=== PATIENT | female | born 1975 | race Two or more races ===

== ENCOUNTER 2023-10-14 13:23 | Inpatient (IN) | payer OTHER, MEDICAID ==
[~2023-10-14] VITALS: Ht 149.9 cm; Wt 79.3 kg
[2023-10-14 14:30] LABS: Basophils # (auto) 0.1 10 ^3/uL (0-0.2); Basophils % (auto) 1.5 % (0.0-2.0); Eosinophils # (auto) 0.2 10 ^3/uL (0-0.8); Eosinophils % (auto) 2.9 % (0.0-7.0); Hematocrit 39.4 % (36.0-46.0); Hemoglobin 13.2 g/dL (12.2-16.2); Lymphocytes # (auto) 3.5 10 ^3/uL (0.4-5.4); Lymphocytes % (auto) 41.7 % (10.0-50.0); Mean Corpuscular Hemoglobin 31.4 pg (28.0-32.0); Mean Corpuscular Hgb Conc. 33.5 g/dL (32.0-36.0); Mean Corpuscular Volume 93.7 fL (80.0-100.0); Monocytes # (auto) 0.4 10 ^3/uL (0-1.3); Monocytes % (auto) 4.6 % (0.0-12.0); Neutrophils # (auto) 4.1 10 ^3/uL (1.6-8.6); Neutrophils % (auto) 49.3 % (37.0-80.0); Red Blood Cells 4.21 10^6/uL (4.0-5.20); Red Cell Distribution Width 13.8 % (11.8-14.3); White Blood Cell 8.4 10^3/uL (4.4-10.8)
[2023-10-14 14:51] LABS: Alanine Aminotransferase 13 U/L (7-40); Alkaline Phosphatase 66 U/L (46-116); Calcium 9.4 mg/dL (8.7-10.4); Chloride 112 mmol/L (98-107)
[2023-10-14 14:52] LABS: Albumin 3.8 g/dL (3.2-4.8); Anion Gap 2 (5-15); Aspartate Aminotransferase 8 U/L (13-40); BUN/Creatinine Ratio 19.3 (10.0-20.0); Bilirubin, Total 0.3 mg/dL (0.2-1.0); Blood Urea Nitrogen 11 mg/dL (9-23); Carbon Dioxide 28 mmol/L (20-30); Glucose 123 mg/dL (74-106); Lipase 51 U/L (12-53); Potassium 3.6 mmol/L (3.5-5.1); Sodium 142 mmol/L (136-145); Total Protein 6.4 g/dL (5.7-8.2)
[2023-10-14 15:12] LABS: Urine Bacteria FEW /hpf (None Seen); Urine Blood Negative /uL (Negative); Urine Clarity HAZY (Clear); Urine Color Yellow (Yellow); Urine Mucus FEW (None Seen); Urine Protein, UAD Negative (Negative); Urine Urobilinogen Normal (Negative); Urine WBC 2 /hpf (0 - 5)
[2023-10-14] MEDS ORDERED: PANT40TA2 PO (17:16)
[2023-10-14 19:29] VITALS: PULSE 83; RESP 18; O2SAT 99
[2023-10-14] MEDS: HYDROcodone-ACET 10/325MG TAB PO ONE (19:43)
[2023-10-14] MEDS ORDERED: MORPHINE SULFATE INJ 2 MG/ml SYRG IV PRN (20:30)
[2023-10-14] MEDS ORDERED: DOCUSATE SOD 100 MG CAP PO PRN (20:30)
[2023-10-14] MEDS ORDERED: NITROGLYCERIN 0.4 MG SL TAB SL PRN (20:30)
[2023-10-14] MEDS ORDERED: OMEP-434 PO (20:38)
[2023-10-14] MEDS ORDERED: GABA-339 PO (20:38)
[2023-10-14] MEDS ORDERED: LISI40TA16 PO (20:38)
[2023-10-14] MEDS ORDERED: TIZA-142 PO (20:38)
[2023-10-14] MEDS ORDERED: SENN-62 PO (20:38)
[2023-10-14] MEDS ORDERED: ALPR1TAB2 PO (20:38)
[2023-10-14] MEDS: ONDANSETRON HCL 4 MG/2 ML VIAL IV PRN (21:21)
[2023-10-14] MEDS: MORPHINE SULFATE INJ 2 MG/ml SYRG IV PRN (21:21)
[2023-10-14] MEDS: SODIUM CHLORIDE 0.9% 1,000 ML IV SCH (22:00)
[2023-10-14] MEDS: HYDROcodone-ACET 5/325MG TAB PO PRN (22:43)
[2023-10-14] MEDS ORDERED: OXY10CRT PO (23:30)
[2023-10-14 23:52] VITALS: BP 137/79; PULSE 61; RESP 18; TEMP 98.4; O2SAT 98
[2023-10-15] VITALS (7 sets, daily range): BP systolic 104–153; BP diastolic 57–97; PULSE 50–64; RESP 16–18; TEMP 97.3–98.3; O2SAT 96–100
[2023-10-15] MEDS: ACETAMINOPHEN 325 MG TAB PO PRN (00:24)
[2023-10-15] MEDS: ALPRAZolam 0.5 MG TAB PO PRN (00:24)
[2023-10-15] MEDS ORDERED: [UNRECOGNIZED DRUG - OTHER] PO SCH (06:00)
[2023-10-15] MEDS ORDERED: TIZANIDINE HYDROCHLORIDE 4 MG PO SCH (06:00)
[2023-10-15 06:18] LABS: Basophils # (auto) 0.1 10 ^3/uL (0-0.2); Eosinophils # (auto) 0.3 10 ^3/uL (0-0.8); Eosinophils % (auto) 3.8 % (0.0-7.0); Hematocrit 40.1 % (36.0-46.0); Hemoglobin 13.2 g/dL (12.2-16.2); Lymphocytes # (auto) 4.1 10 ^3/uL (0.4-5.4); Lymphocytes % (auto) 49.6 % (10.0-50.0); Mean Corpuscular Hemoglobin 31.3 pg (28.0-32.0); Mean Corpuscular Hgb Conc. 32.8 g/dL (32.0-36.0); Mean Corpuscular Volume 95.5 fL (80.0-100.0); Monocytes # (auto) 0.6 10 ^3/uL (0-1.3); Monocytes % (auto) 6.7 % (0.0-12.0); Neutrophils # (auto) 3.2 10 ^3/uL (1.6-8.6); Neutrophils % (auto) 38.9 % (37.0-80.0); Nucleated Red Blood Cells % 0.2 %; Red Cell Distribution Width 13.8 % (11.8-14.3); White Blood Cell 8.3 10^3/uL (4.4-10.8)
[2023-10-15 06:41] LABS: Alanine Aminotransferase 12 U/L (7-40); Albumin 3.7 g/dL (3.2-4.8); Alkaline Phosphatase 62 U/L (46-116); Anion Gap 2 (5-15); Blood Urea Nitrogen 9 mg/dL (9-23); Calcium 8.5 mg/dL (8.5-10.1); Carbon Dioxide 25 mmol/L (20-30); Chloride 115 mmol/L (98-107); Glucose 83 mg/dL (74-106); Potassium 3.9 mmol/L (3.5-5.1); Sodium 142 mmol/L (136-145)
[2023-10-15 06:42] LABS: Aspartate Aminotransferase < 8 U/L (13-40); Bilirubin, Total 0.3 mg/dL (0.2-1.0)
[2023-10-15] MEDS: GABAPENTIN 300 MG CAP PO SCH (07:04)
[2023-10-15] MEDS: LISINOPRIL 20 MG TAB PO SCH (09:57)
[2023-10-15] MEDS: PANTOPRAZOLE 40 MG/10 ML VIAL INJ IV SCH (09:58)
[2023-10-15] MEDS ORDERED: DOCUSATE SODIUM PO SCH (10:00)
[2023-10-15] MEDS ORDERED: [UNRECOGNIZED DRUG - OTHER] PO SCH (10:00)
[2023-10-15] MEDS: D5W/SOD CHL 0.45% 1,000 ML IV SCH (14:04)
[2023-10-15] MEDS: HYDROmorphone HCL 2 MG/ML VL/or syr IV PRN (14:14)
[2023-10-15] MEDS: LORazepam 2MG/ML-1ML VIAL IV PRN (16:19)
[2023-10-15] MEDS: GASTROGRAFIN 120 ML SOL ONE (16:57)
[2023-10-15] MEDS: EZ-GAS II GRANULES (RADIOLOGY USE) PO ONE (17:28)
[2023-10-15] MEDS: ATORVASTATIN 20 MG TAB PO SCH (21:24)
[2023-10-16] VITALS (8 sets, daily range): BP systolic 101–152; BP diastolic 48–78; PULSE 52–82; RESP 14–20; TEMP 97.4–98.6; O2SAT 95–98
[2023-10-16 06:22] LABS: Basophils # (auto) 0.1 10 ^3/uL (0-0.2); Basophils % (auto) 1.1 % (0.0-2.0); Eosinophils # (auto) 0.3 10 ^3/uL (0-0.8); Eosinophils % (auto) 3.9 % (0.0-7.0); Hematocrit 37.8 % (36.0-46.0); Hemoglobin 12.6 g/dL (12.2-16.2); Lymphocytes # (auto) 3.3 10 ^3/uL (0.4-5.4); Lymphocytes % (auto) 43.9 % (10.0-50.0); Mean Corpuscular Hemoglobin 31.5 pg (28.0-32.0); Mean Corpuscular Hgb Conc. 33.2 g/dL (32.0-36.0); Mean Corpuscular Volume 94.8 fL (80.0-100.0); Monocytes # (auto) 0.5 10 ^3/uL (0-1.3); Neutrophils # (auto) 3.3 10 ^3/uL (1.6-8.6); Neutrophils % (auto) 44.1 % (37.0-80.0); Red Blood Cells 3.99 10^6/uL (4.0-5.20); Red Cell Distribution Width 13.6 % (11.8-14.3); White Blood Cell 7.6 10^3/uL (4.4-10.8)
[2023-10-16 06:33] LABS: INR 1.05 (0.9-1.15); Partial Thromboplastin Time 30.2 SEC (24.5-34.5)
[2023-10-16 06:42] LABS: Alanine Aminotransferase 16 U/L (7-40); Albumin 3.7 g/dL (3.2-4.8); Alkaline Phosphatase 66 U/L (46-116); Anion Gap 4 (5-15); Aspartate Aminotransferase 13 U/L (13-40); BUN/Creatinine Ratio 10.3 (10.0-20.0); Bilirubin, Total 0.5 mg/dL (0.2-1.0); Blood Urea Nitrogen 6 mg/dL (9-23); Calcium 8.8 mg/dL (8.5-10.1); Carbon Dioxide 26 mmol/L (20-30); Chloride 111 mmol/L (98-107); Cholesterol 141 mg/dL (< 200); Glucose 98 mg/dL (74-106); HDL Cholesterol 40 mg/dL (40-59); LDL Cholesterol 81 mg/dL (< 100); Potassium 3.6 mmol/L (3.5-5.1); Sodium 141 mmol/L (136-145); Total Protein 6.3 g/dL (5.7-8.2); Triglycerides 177 mg/dL (< 150)
[2023-10-16 07:21] LABS: Magnesium 1.9 mg/dL (1.6-2.6)
[2023-10-16] MEDS: GOLYTELY 4L KIT PO ONE (13:45)
[2023-10-16] MEDS: LIDOCAINE 1% (LOCAL ANESTH.) PF 5ml SDV ID ONE (18:40)
[2023-10-16] MEDS: SODIUM CHLOR 0.9% PF (SALINE LOCK) 10ML VIAL/SYR IV SCH (21:32)
[2023-10-17] VITALS (8 sets, daily range): BP systolic 114–130; BP diastolic 68–81; PULSE 56–103; RESP 14–19; TEMP 97.5–98; O2SAT 91–100
[2023-10-17] MEDS: MAGNESIUM CITRATE SOLUTION 300 ML BTL PO ONE (05:54)
[2023-10-17] MEDS: GOLYTELY 4L KIT PO ONE (05:54)
[2023-10-17] MEDS ORDERED: fentaNYL CITRATE 100 MCG/2 ML VL ONE (12:56)
[2023-10-17] MEDS ORDERED: MEPERIDINE HCL (25 MG/ML) 1ML VIAL ONE (12:57)
[2023-10-17] MEDS ORDERED: MIDAZOLAM HCL 2MG/2ML 2ml VIAL (1mg/ml) ONE (12:57)
[2023-10-17] MEDS ORDERED: DexAMETHasone SOD PHOS 10MG/1ML VIAL INJ ONE (13:09)
[2023-10-17] MEDS ORDERED: PROPOFOL 10 MG/ML 20 ML IV ONE (14:05)
[2023-10-17] MEDS ORDERED: TPN PER PHARMACY 0 ML IV SCH (17:00)
[2023-10-17] MEDS: HYDROmorphone HCL 2 MG/ML VL/or syr IV PRN (17:01)
[2023-10-17 19:26] LABS: Potassium 3.2 mmol/L (3.5-5.1)
[2023-10-17 19:27] LABS: Calcium 9.4 mg/dL (8.7-10.4)
[2023-10-17 19:32] LABS: BUN/Creatinine Ratio 13.6 (10.0-20.0)
[2023-10-17 19:34] LABS: Albumin 4.2 g/dL (3.2-4.8); Phosphorus 3.2 mg/dL (2.4-5.1)
[2023-10-17] MEDS: AMINO ACID INFUSION IN D10W 1,000 ML IV SCH (20:00)
[2023-10-17] MEDS: POTASSIUM PHOSPHATE 22 MEQ in SODIUM CHL 0.9% 100 ML IV ONE (21:54)
[2023-10-17] MEDS: InsuLIN REG 1unit/0.01ml Soln (100units/ml) ONE (23:39)
[2023-10-17] MEDS: ACCU-CHEK COMFORT CURVE STRIP VI SCH (23:40)
[2023-10-17] MEDS: InsuLIN REG 1unit/0.01ml Soln (100units/ml) SC SCH (23:41)
[2023-10-18] VITALS (8 sets, daily range): BP systolic 117–139; BP diastolic 67–89; PULSE 58–82; RESP 16–20; TEMP 97.4–98.3; O2SAT 92–98
[2023-10-18] MEDS ORDERED: DEXTROSE (50%) 50ML SYRG IV SCH
[2023-10-18] MEDS: InsuLIN REG 1unit/0.01ml Soln (100units/ml) ONE (06:55)
[2023-10-18 07:36] LABS: Basophils # (auto) 0 10 ^3/uL (0-0.2); Basophils % (auto) 0.1 % (0.0-2.0); Eosinophils # (auto) 0 10 ^3/uL (0-0.8); Hematocrit 42.4 % (36.0-46.0); Hemoglobin 13.8 g/dL (12.2-16.2); Lymphocytes # (auto) 1.5 10 ^3/uL (0.4-5.4); Lymphocytes % (auto) 11.5 % (10.0-50.0); Mean Corpuscular Hemoglobin 31.1 pg (28.0-32.0); Mean Corpuscular Hgb Conc. 32.7 g/dL (32.0-36.0); Mean Corpuscular Volume 95.3 fL (80.0-100.0); Monocytes # (auto) 0.6 10 ^3/uL (0-1.3); Monocytes % (auto) 4.8 % (0.0-12.0); Neutrophils # (auto) 10.9 10 ^3/uL (1.6-8.6); Neutrophils % (auto) 83.6 % (37.0-80.0); Nucleated Red Blood Cells % 0.1 %; Red Blood Cells 4.45 10^6/uL (4.0-5.20); Red Cell Distribution Width 13.3 % (11.8-14.3)
[2023-10-18 08:02] LABS: Alanine Aminotransferase 14 U/L (7-40); Albumin 4.4 g/dL (3.2-4.8); Alkaline Phosphatase 76 U/L (46-116); Anion Gap 4 (5-15); Aspartate Aminotransferase 9 U/L (13-40); BUN/Creatinine Ratio 16.1 (10.0-20.0); Blood Urea Nitrogen 9 mg/dL (9-23); Calcium 9.7 mg/dL (8.7-10.4); Carbon Dioxide 26 mmol/L (20-30); Chloride 110 mmol/L (98-107); Glucose 121 mg/dL (74-106); Magnesium 2.2 mg/dL (1.6-2.6); Phosphorus 3.5 mg/dL (2.4-5.1); Potassium 3.9 mmol/L (3.5-5.1); Sodium 140 mmol/L (136-145)
[2023-10-18 08:03] LABS: Bilirubin, Total 0.4 mg/dL (0.2-1.0); Total Protein 7.3 g/dL (5.7-8.2)
[2023-10-18] MEDS: LORazepam 2MG/ML-1ML VIAL IV PRN (13:45)
[2023-10-18] MEDS: TPN PER PHARMACY IV NR (20:16)
[2023-10-19 01:00] VITALS: BP 134/58; PULSE 55; RESP 20; TEMP 97.7; O2SAT 99
[2023-10-19 05:00] VITALS: BP 122/74; PULSE 61; RESP 17; TEMP 98; O2SAT 99
[2023-10-19 05:58] LABS: Basophils # (auto) 0.1 10 ^3/uL (0-0.2); Eosinophils # (auto) 0.1 10 ^3/uL (0-0.8); Eosinophils % (auto) 1.1 % (0.0-7.0); Hematocrit 34.6 % (36.0-46.0); Hemoglobin 11.8 g/dL (12.2-16.2); Lymphocytes # (auto) 1.5 10 ^3/uL (0.4-5.4); Lymphocytes % (auto) 19.2 % (10.0-50.0); Mean Corpuscular Hemoglobin 32.4 pg (28.0-32.0); Mean Corpuscular Hgb Conc. 34.2 g/dL (32.0-36.0); Mean Corpuscular Volume 94.8 fL (80.0-100.0); Monocytes # (auto) 0.5 10 ^3/uL (0-1.3); Monocytes % (auto) 6.6 % (0.0-12.0); Neutrophils # (auto) 5.6 10 ^3/uL (1.6-8.6); Neutrophils % (auto) 72.1 % (37.0-80.0); Red Blood Cells 3.65 10^6/uL (4.0-5.20); Red Cell Distribution Width 13.2 % (11.8-14.3); White Blood Cell 7.8 10^3/uL (4.4-10.8)
[2023-10-19 06:15] LABS: INR 1.04 (0.9-1.15); Partial Thromboplastin Time 28.8 SEC (24.5-34.5); Prothrombin Time 10.9 sec (9.3-11.8)
[2023-10-19 06:19] LABS: Alanine Aminotransferase 12 U/L (7-40); Albumin 3.5 g/dL (3.2-4.8); Alkaline Phosphatase 60 U/L (46-116); Anion Gap 4 (5-15); Aspartate Aminotransferase 9 U/L (13-40); Bilirubin, Total 0.4 mg/dL (0.2-1.0); Blood Urea Nitrogen 12 mg/dL (9-23); Calcium 8.6 mg/dL (8.7-10.4); Carbon Dioxide 27 mmol/L (20-30); Chloride 109 mmol/L (98-107); Glucose 119 mg/dL (74-106); Magnesium 1.9 mg/dL (1.6-2.6); Phosphorus 2.9 mg/dL (2.4-5.1); Potassium 3.4 mmol/L (3.5-5.1); Sodium 140 mmol/L (136-145); Total Protein 5.8 g/dL (5.7-8.2)
[2023-10-19 06:57] LABS: Urine Bacteria FEW /hpf (None Seen); Urine Blood Negative /uL (Negative); Urine Clarity Clear (Clear); Urine Color Yellow (Yellow); Urine Mucus FEW (None Seen); Urine Protein, UAD TRACE (Negative); Urine Specific Gravity 1.025 (1.001-1.035); Urine Urobilinogen Normal (Negative); Urine WBC 1 /hpf (0 - 5)
[2023-10-19 08:09] VITALS: PULSE 60; RESP 16; O2SAT 96
[2023-10-19 09:00] VITALS: BP 122/74; PULSE 77; RESP 20; TEMP 97.9; O2SAT 99
[2023-10-19 13:00] VITALS: BP 135/67; PULSE 68; RESP 18; TEMP 98.4; O2SAT 95
[2023-10-19] MEDS: POTASSIUM PHOSPHATE 22 MEQ in SODIUM CHL 0.9% 100 ML IV ONE (15:09)
[2023-10-19 17:00] VITALS: BP 151/88; PULSE 73; RESP 20; TEMP 98.7; O2SAT 97
[2023-10-19] MEDS: TPN PER PHARMACY IV NR (20:53)
[2023-10-20 05:00] VITALS: BP 138/86; PULSE 66; RESP 18; TEMP 98.3; O2SAT 98
[2023-10-20 06:38] LABS: Alanine Aminotransferase 15 U/L (7-40); Albumin 3.7 g/dL (3.2-4.8); Alkaline Phosphatase 65 U/L (46-116); Anion Gap 6 (5-15); BUN/Creatinine Ratio 16.7 (10.0-20.0); Blood Urea Nitrogen 10 mg/dL (9-23); Calcium 8.9 mg/dL (8.7-10.4); Carbon Dioxide 26 mmol/L (20-30); Chloride 109 mmol/L (98-107); Glucose 118 mg/dL (74-106); Magnesium 1.9 mg/dL (1.6-2.6); Potassium 3.5 mmol/L (3.5-5.1); Sodium 141 mmol/L (136-145)
[2023-10-20 06:39] LABS: Bilirubin, Total 0.2 mg/dL (0.2-1.0); Phosphorus 3.7 mg/dL (2.4-5.1)
[2023-10-20 06:47] LABS: Aspartate Aminotransferase 13 U/L (13-40)
[2023-10-20] MEDS: metroNIDAZOLE 500MG/100ML 100 ML IV ONE (07:13)
[2023-10-20] MEDS: ceFAZolin 2 GM/D5W50ml 50 ML IV ONE (07:13)
[2023-10-20] MEDS ORDERED: MIDAZOLAM HCL 2MG/2ML 2ml VIAL (1mg/ml) ONE (07:41)
[2023-10-20] MEDS ORDERED: fentaNYL CITRATE 100 MCG/2 ML VL ONE (07:41)
[2023-10-20] MEDS ORDERED: fentaNYL CITRATE 5 ML ONE (07:41)
[2023-10-20] MEDS ORDERED: HYDROmorphone HCL 2 MG/ML VL/or syr ONE ×2 (07:41→08:43)
[2023-10-20] MEDS: SUCCINYLCHOLINE CHLORIDE 20 MG/ML 10ML VIAL IV ONE (07:44)
[2023-10-20] MEDS ORDERED: ONDANSETRON HCL 4 MG/2 ML VIAL ONE (09:16)
[2023-10-20] MEDS ORDERED: ETOMIDATE (2MG/ML) 20ML VIAL IV ONE (09:16)
[2023-10-20] MEDS: ROPIVACAINE 0.5% (5MG/ML) 20ML AMPULE IJ ONE (09:57)
[2023-10-20] MEDS ORDERED: SUGAMMADEX 200mg/2ml Vial (100MG/ML) IV ONE (10:04)
[2023-10-20] MEDS ORDERED: MIDAZOLAM HCL 2MG/2ML 2ml VIAL (1mg/ml) IV PRN (10:15)
[2023-10-20] MEDS ORDERED: MORPHINE SULFATE 4 MG/ML SYR/VIAL IV PRN (10:15)
[2023-10-20] MEDS ORDERED: LABETALOL HCL 5 MG/ML 4ML SYRINGE IV PRN (10:15)
[2023-10-20] MEDS: ONDANSETRON HCL 4 MG/2 ML VIAL IV ONE (10:15)
[2023-10-20] MEDS ORDERED: ePHEDrine SULFATE 50 MG/ML AMP IV PRN (10:15)
[2023-10-20] MEDS ORDERED: PHENYLEPHRINE HCL 10 MG/ML VL IV ONE (10:19)
[2023-10-20 10:48] VITALS: O2SAT 100
[2023-10-20] MEDS: HYDROmorphone HCL 2 MG/ML VL/or syr ONE (10:59)
[2023-10-20] MEDS: HYDROmorphone HCL 2 MG/ML VL/or syr IV PRN ×2 (11:01→18:10)
[2023-10-20] MEDS: KETOROLAC TROMETH 30 MG/ML 1ML VIAL ONE (11:35)
[2023-10-20] MEDS: KETOROLAC TROMETH 30 MG/ML 1ML VIAL IV ONE (11:38)
[2023-10-20] MEDS: POTASSIUM CHL 20MEQ/100ML 100 ML IV ONE ×2 (12:08→12:13)
[2023-10-20 12:35] VITALS: BP 171/93; PULSE 69; RESP 15; TEMP 97.8; O2SAT 96
[2023-10-20] MEDS: MORPHINE SULFATE 4 MG/ML SYR/VIAL IV PRN (16:07)
[2023-10-20 16:40] VITALS: BP 162/90; PULSE 67; RESP 18; TEMP 98.1; O2SAT 98
[2023-10-20] MEDS: hydrALAZINE HCL 20 MG/ML VL IV PRN (17:11)
[2023-10-20 20:00] VITALS: PULSE 69; RESP 18; O2SAT 95
[2023-10-20] MEDS: TPN PER PHARMACY IV NR (20:31)
[2023-10-20 21:00] VITALS: BP 146/80; PULSE 69; RESP 18; TEMP 98.5; O2SAT 95
[2023-10-21] VITALS (8 sets, daily range): BP systolic 127–167; BP diastolic 78–98; PULSE 63–78; RESP 16–19; TEMP 97.8–98.3; O2SAT 96–98
[2023-10-21 06:41] LABS: Basophils # (auto) 0 10 ^3/uL (0-0.2); Basophils % (auto) 0.2 % (0.0-2.0); Eosinophils # (auto) 0 10 ^3/uL (0-0.8); Hematocrit 36.7 % (36.0-46.0); Hemoglobin 12.2 g/dL (12.2-16.2); Lymphocytes # (auto) 2.1 10 ^3/uL (0.4-5.4); Lymphocytes % (auto) 13.4 % (10.0-50.0); Mean Corpuscular Hemoglobin 31.6 pg (28.0-32.0); Mean Corpuscular Hgb Conc. 33.3 g/dL (32.0-36.0); Monocytes # (auto) 1.5 10 ^3/uL (0-1.3); Monocytes % (auto) 9.9 % (0.0-12.0); Neutrophils # (auto) 11.8 10 ^3/uL (1.6-8.6); Neutrophils % (auto) 76.5 % (37.0-80.0); Red Blood Cells 3.86 10^6/uL (4.0-5.20); Red Cell Distribution Width 13.3 % (11.8-14.3); White Blood Cell 15.5 10^3/uL (4.4-10.8)
[2023-10-21 06:52] LABS: Alanine Aminotransferase 17 U/L (7-40); Albumin 3.3 g/dL (3.2-4.8); Alkaline Phosphatase 57 U/L (46-116); Anion Gap 3 (5-15); Aspartate Aminotransferase 17 U/L (13-40); Blood Urea Nitrogen 9 mg/dL (9-23); Calcium 8.5 mg/dL (8.5-10.1); Carbon Dioxide 27 mmol/L (20-30); Chloride 107 mmol/L (98-107); Glucose 146 mg/dL (74-106); Potassium 3.8 mmol/L (3.5-5.1); Sodium 137 mmol/L (136-145)
[2023-10-21 06:53] LABS: Bilirubin, Total 0.3 mg/dL (0.2-1.0); Phosphorus 2.9 mg/dL (2.4-5.1); Total Protein 5.2 g/dL (5.7-8.2)
[2023-10-21 07:06] LABS: RPR Non Reactive (Non Reactive)
[2023-10-21 07:10] LABS: Magnesium 2.2 mg/dL (1.6-2.6)
[2023-10-21] MEDS: KETOROLAC TROMETH 60MG/2ML VIAL IM ONE (12:22)
[2023-10-21 13:54] LABS: Basophils # (auto) 0 10 ^3/uL (0-0.2); Basophils % (auto) 0.3 % (0.0-2.0); Eosinophils # (auto) 0.1 10 ^3/uL (0-0.8); Eosinophils % (auto) 0.5 % (0.0-7.0); Hematocrit 36.2 % (36.0-46.0); Hemoglobin 11.9 g/dL (12.2-16.2); Lymphocytes # (auto) 2.5 10 ^3/uL (0.4-5.4); Lymphocytes % (auto) 19.6 % (10.0-50.0); Mean Corpuscular Hemoglobin 30.6 pg (28.0-32.0); Mean Corpuscular Hgb Conc. 32.8 g/dL (32.0-36.0); Mean Corpuscular Volume 93.3 fL (80.0-100.0); Monocytes # (auto) 1.1 10 ^3/uL (0-1.3); Monocytes % (auto) 8.5 % (0.0-12.0); Neutrophils # (auto) 9.1 10 ^3/uL (1.6-8.6); Neutrophils % (auto) 71.1 % (37.0-80.0); Red Blood Cells 3.88 10^6/uL (4.0-5.20); Red Cell Distribution Width 13.3 % (11.8-14.3); White Blood Cell 12.8 10^3/uL (4.4-10.8)
[2023-10-21] MEDS: fentaNYL 25MCG/HR 25 MCG/HR PAT TD SCH (13:57)
[2023-10-21] MEDS: MORPHINE SULFATE 4 MG/ML SYR/VIAL IV PRN (16:41)
[2023-10-21] MEDS: TPN PER PHARMACY IV NR (20:25)
[2023-10-22] VITALS (8 sets, daily range): BP systolic 119–133; BP diastolic 73–85; PULSE 65–84; RESP 16–20; TEMP 97.7–98.5; O2SAT 8–98
[2023-10-22 07:12] LABS: Alanine Aminotransferase 16 U/L (7-40); Albumin 3.2 g/dL (3.2-4.8); Alkaline Phosphatase 57 U/L (46-116); Anion Gap 4 (5-15); Aspartate Aminotransferase 15 U/L (13-40); Blood Urea Nitrogen 12 mg/dL (9-23); Calcium 8.3 mg/dL (8.7-10.4); Carbon Dioxide 28 mmol/L (20-30); Chloride 107 mmol/L (98-107); Glucose 114 mg/dL (74-106); Magnesium 2.2 mg/dL (1.6-2.6); Potassium 3.8 mmol/L (3.5-5.1); Sodium 139 mmol/L (136-145)
[2023-10-22 07:13] LABS: Bilirubin, Total 0.3 mg/dL (0.2-1.0); Total Protein 5.5 g/dL (5.7-8.2)
[2023-10-22 09:10] LABS: Phosphorus 4.1 mg/dL (2.4-5.1)
[2023-10-22] MEDS: KETOROLAC TROMETH 30 MG/ML 1ML VIAL IV ONE (09:47)
[2023-10-22] MEDS: HYDROmorphone HCL 2 MG/ML VL/or syr IV PRN (16:32)
[2023-10-22] MEDS: TPN PER PHARMACY IV NR (19:53)
[2023-10-23] VITALS (8 sets, daily range): BP systolic 120–149; BP diastolic 71–98; PULSE 78–96; RESP 17–19; TEMP 97.7–99.3; O2SAT 89–98
[2023-10-23 06:19] LABS: Basophils # (auto) 0.1 10 ^3/uL (0-0.2); Basophils % (auto) 0.6 % (0.0-2.0); Eosinophils # (auto) 0.5 10 ^3/uL (0-0.8); Eosinophils % (auto) 5.3 % (0.0-7.0); Hematocrit 36.4 % (36.0-46.0); Hemoglobin 12.2 g/dL (12.2-16.2); Lymphocytes # (auto) 2.4 10 ^3/uL (0.4-5.4); Lymphocytes % (auto) 24.1 % (10.0-50.0); Mean Corpuscular Hemoglobin 31.3 pg (28.0-32.0); Mean Corpuscular Hgb Conc. 33.5 g/dL (32.0-36.0); Mean Corpuscular Volume 93.4 fL (80.0-100.0); Monocytes # (auto) 0.9 10 ^3/uL (0-1.3); Monocytes % (auto) 8.7 % (0.0-12.0); Neutrophils % (auto) 61.3 % (37.0-80.0); Red Blood Cells 3.89 10^6/uL (4.0-5.20); Red Cell Distribution Width 13.4 % (11.8-14.3); White Blood Cell 9.8 10^3/uL (4.4-10.8)
[2023-10-23 06:40] LABS: Alanine Aminotransferase 31 U/L (7-40); Albumin 3.5 g/dL (3.2-4.8); Alkaline Phosphatase 67 U/L (46-116); Anion Gap 4 (5-15); Aspartate Aminotransferase 23 U/L (13-40); BUN/Creatinine Ratio 29.8 (10.0-20.0); Blood Urea Nitrogen 14 mg/dL (9-23); Calcium 8.7 mg/dL (8.7-10.4); Carbon Dioxide 28 mmol/L (20-30); Chloride 107 mmol/L (98-107); Glucose 122 mg/dL (74-106); Magnesium 2.1 mg/dL (1.6-2.6); Sodium 139 mmol/L (136-145)
[2023-10-23 06:41] LABS: Bilirubin, Total 0.4 mg/dL (0.2-1.0); Phosphorus 4.3 mg/dL (2.4-5.1); Total Protein 5.8 g/dL (5.7-8.2)
[2023-10-23 06:53] LABS: Triglycerides 164 mg/dL (< 150)
[2023-10-23 09:04] LABS: Hepatitis B Surface Antigen Negative (Negative)
[2023-10-23 09:25] LABS: Hepatitis A Ab IgM Negative
[2023-10-23 09:26] LABS: Hepatitis B Core IgM Negative; Hepatitis C Antibody Negative (Negative)
[2023-10-23] MEDS: TPN PER PHARMACY IV NR (20:18)
[2023-10-24] VITALS (8 sets, daily range): BP systolic 116–152; BP diastolic 67–99; PULSE 64–109; RESP 16–22; TEMP 97.9–99.2; O2SAT 94–100
[2023-10-24 06:58] LABS: Alanine Aminotransferase 49 U/L (7-40); Albumin 3.9 g/dL (3.2-4.8); Alkaline Phosphatase 87 U/L (46-116); Anion Gap 7 (5-15); Aspartate Aminotransferase 29 U/L (13-40); BUN/Creatinine Ratio 27.1 (10.0-20.0); Bilirubin, Total 0.6 mg/dL (0.2-1.0); Blood Urea Nitrogen 13 mg/dL (9-23); Carbon Dioxide 25 mmol/L (20-30); Chloride 104 mmol/L (98-107); Glucose 120 mg/dL (74-106); Phosphorus 3.7 mg/dL (2.4-5.1); Sodium 136 mmol/L (136-145); Total Protein 6.5 g/dL (5.7-8.2)
[2023-10-24] MEDS ORDERED: TPN PER PHARMACY 0 ML IV SCH (12:45)
[2023-10-24] MEDS: MORPHINE SULFATE 4 MG/ML SYR/VIAL IV PRN (13:21)
[2023-10-25] VITALS (9 sets, daily range): BP systolic 110–127; BP diastolic 67–88; PULSE 80–97; RESP 17–18; TEMP 98.4–100.1; O2SAT 91–100
[2023-10-25 06:43] LABS: Alanine Aminotransferase 47 U/L (7-40); Albumin 3.7 g/dL (3.2-4.8); Alkaline Phosphatase 82 U/L (46-116); Anion Gap 9 (5-15); Aspartate Aminotransferase 20 U/L (13-40); Blood Urea Nitrogen 15 mg/dL (9-23); Calcium 8.9 mg/dL (8.5-10.1); Carbon Dioxide 24 mmol/L (20-30); Chloride 105 mmol/L (98-107); Glucose 94 mg/dL (74-106); Potassium 4.2 mmol/L (3.5-5.1); Sodium 138 mmol/L (136-145)
[2023-10-25 06:44] LABS: Bilirubin, Total 0.6 mg/dL (0.2-1.0); Total Protein 5.8 g/dL (5.7-8.2)
[2023-10-25 09:20] LABS: Magnesium 1.8 mg/dL (1.6-2.6)
[2023-10-25] MEDS: KETOROLAC TROMETH 30 MG/ML 1ML VIAL ONE (14:42)
[2023-10-25] MEDS: KETOROLAC TROMETH 30 MG/ML 1ML VIAL IV PRN (14:44)
[2023-10-25] MEDS: SIMETHICONE 80 MG CHEWABLE TABLET PO SCH (18:25)
[2023-10-26 05:00] VITALS: BP 127/74; PULSE 89; RESP 18; TEMP 97.6; O2SAT 99
[2023-10-26 08:00] VITALS: PULSE 107; PULSE 90; RESP 18
[2023-10-26 08:32] VITALS: BP 118/70; PULSE 91; RESP 17; TEMP 98.8; O2SAT 94
[2023-10-26] MEDS: HYDROmorphone HCL 2 MG/ML VL/or syr IV PRN (12:51)
[2023-10-26 17:00] VITALS: BP 119/76; PULSE 90; RESP 17; TEMP 98.6; O2SAT 93
[2023-10-26] MEDS: GABAPENTIN 300 MG CAP PO SCH (18:10)
[2023-10-26] MEDS: CYCLOBENZAPRINE HCL 10 MG TAB PO SCH (18:11)
[2023-10-26 20:00] VITALS: PULSE 101
[2023-10-26] MEDS: OXYCODONE W/ ACETAMINOPHEN 5/325MG TABLET PO PRN (20:05)
[2023-10-26] MEDS: MINERAL OIL 30 ML GT SCH (20:22)
[2023-10-26 21:00] VITALS: BP 107/63; PULSE 90; RESP 16; TEMP 98.6; O2SAT 97
[2023-10-26] MEDS: FLEET MINERAL OIL ENEMA 133 ML PR ONE (22:42)
[2023-10-27] VITALS (8 sets, daily range): BP systolic 103–125; BP diastolic 44–80; PULSE 80–103; RESP 17–18; TEMP 98.4–98.8; O2SAT 94–97
[2023-10-27 05:46] LABS: Alanine Aminotransferase 32 U/L (7-40); Alkaline Phosphatase 82 U/L (46-116); Anion Gap 7 (5-15); BUN/Creatinine Ratio 22.4 (10.0-20.0); Basophils # (auto) 0.2 10 ^3/uL (0-0.2); Basophils % (auto) 1.9 % (0.0-2.0); Blood Urea Nitrogen 15 mg/dL (9-23); Calcium 9.1 mg/dL (8.7-10.4); Carbon Dioxide 28 mmol/L (20-30); Chloride 103 mmol/L (98-107); Eosinophils # (auto) 0.6 10 ^3/uL (0-0.8); Eosinophils % (auto) 4.8 % (0.0-7.0); Glucose 112 mg/dL (74-106); Hematocrit 36.8 % (36.0-46.0); Lymphocytes # (auto) 3.2 10 ^3/uL (0.4-5.4); Lymphocytes % (auto) 25.1 % (10.0-50.0); Magnesium 1.7 mg/dL (1.6-2.6); Mean Corpuscular Hemoglobin 30.3 pg (28.0-32.0); Mean Corpuscular Hgb Conc. 32.6 g/dL (32.0-36.0); Mean Corpuscular Volume 92.8 fL (80.0-100.0); Monocytes # (auto) 0.8 10 ^3/uL (0-1.3); Monocytes % (auto) 6.5 % (0.0-12.0); Neutrophils # (auto) 7.8 10 ^3/uL (1.6-8.6); Neutrophils % (auto) 61.7 % (37.0-80.0); Nucleated Red Blood Cells % 0.1 %; Red Blood Cells 3.97 10^6/uL (4.0-5.20); Red Cell Distribution Width 12.9 % (11.8-14.3); Sodium 138 mmol/L (136-145); White Blood Cell 12.6 10^3/uL (4.4-10.8)
[2023-10-27 05:47] LABS: Albumin 3.8 g/dL (3.2-4.8); Aspartate Aminotransferase 12 U/L (13-40); Bilirubin, Total 0.3 mg/dL (0.2-1.0); Total Protein 6.6 g/dL (5.7-8.2)
[2023-10-27] MEDS: PANTOPRAZOLE 40 MG TAB PO SCH (10:00)
[2023-10-27] MEDS: ALPRAZolam 0.5 MG TAB PO PRN (11:58)
[2023-10-27] MEDS: DOCUSATE SOD 100 MG CAP PO ONE (14:38)
[2023-10-27] MEDS ORDERED: MILK OF MAGNESIA 30ML SUSP PO ONE (14:45)
[2023-10-27] MEDS: HYDROmorphone HCL 2 MG/ML VL/or syr IV PRN (16:10)
[2023-10-27] MEDS: DOCUSATE SOD 100 MG CAP PO SCH (21:26)
[2023-10-28 01:00] VITALS: BP 90/47; PULSE 82; RESP 16; TEMP 98.3; O2SAT 94
[2023-10-28 05:00] VITALS: BP 101/79; PULSE 92; RESP 16; TEMP 98.2; O2SAT 96
[2023-10-28 07:45] VITALS: PULSE 86
[2023-10-28] MEDS ORDERED: DOCU-94 PO (07:58)
[2023-10-28 08:44] VITALS: BP 116/66; PULSE 93; RESP 20; TEMP 98.9; O2SAT 94
[2023-10-28 09:43] VITALS: BP 116/66; PULSE 93; RESP 20; TEMP 98.9; O2SAT 94
== END 2023-10-28 10:20 | disposition home health service (06) | DRG 330 ==
LOC: ER 13:23 → EAST 20:34 → OVERFLOW 20:34 → EAST 23:00 → TELE-EAST 10-20 17:17
PROVIDERS: ADMIT Nurse Practitioner Family; ATTEND Internal Medicine Geriatric Medicine
PROC: 02HV33Z Insertion of Infusion Device into Superior Vena Cava, Percutaneous Approach (ICD-10-PCS; 2023-10-16)
PROC: B548ZZA Ultrasonography of Superior Vena Cava, Guidance (ICD-10-PCS; 2023-10-16)
PROC: 0DBH8ZX Excision of Cecum, Via Natural or Artificial Opening Endoscopic, Diagnostic (ICD-10-PCS; 2023-10-17)
PROC: 0DTJ0ZZ Resection of Appendix, Open Approach (ICD-10-PCS; 2023-10-20)
PROC: 0WQF0ZZ Repair Abdominal Wall, Open Approach (ICD-10-PCS; 2023-10-20)
PROC: 0DBB0ZZ Excision of Ileum, Open Approach (ICD-10-PCS; principal; 2023-10-20 07:46)
DX: K43.5 Parastomal hernia without obstruction or gangrene (principal); J98.11 Atelectasis; I10 Essential (primary) hypertension; Z43.2 Encounter for attention to ileostomy; E66.9 Obesity, unspecified; F41.9 Anxiety disorder, unspecified; I25.10 Atherosclerotic heart disease of native coronary artery without angina pectoris; N20.0 Calculus of kidney; K64.8 Other hemorrhoids; D72.829 Elevated white blood cell count, unspecified; F17.210 Nicotine dependence, cigarettes, uncomplicated; G89.4 Chronic pain syndrome; Z79.899 Other long term (current) drug therapy; Z90.710 Acquired absence of both cervix and uterus; Z83.3 Family history of diabetes mellitus; Z82.49 Family history of ischemic heart disease and other diseases of the circulatory system; Z90.49 Acquired absence of other specified parts of digestive tract; Z68.33 Body mass index [BMI] 33.0-33.9, adult
CPT/HCPCS: 36415; 36569; 71045; 74176; 74248; 80053; 80061; 80069; 80074; 81001; 82962; 83690; 83735; 84100; 84443; 84478; 85025; 85610; 85730; 86592; 86703; 86850; 86900; 86901; 93005; 93306; 97110; 97116; 97163; 97530; C9113; G0378; J0330; J1100; J1815; J1885; J2250; J2405; J2704; J3480; J3490

== ENCOUNTER 2024-01-05 14:46 | Emergency (ER) | payer OTHER, MEDICAID ==
[~2024-01-05] VITALS: Ht 149.9 cm; Wt 72.4 kg
[~2024-01-05 14:46] MED LIST: ALPR1TAB2 PO; DOCU-94 PO; GABA-339 PO; HYDR-4902 PO; LISI40TA16 PO; LOP2C PO; OXY10CRT PO; PANT40TA2 PO; SENN-62 PO; TIZA-142 PO
[2024-01-05 15:45] LABS: Urine Bacteria None Seen /hpf (None Seen)
[2024-01-05 16:01] LABS: Basophils # (auto) 0.1 10 ^3/uL (0-0.2); Basophils % (auto) 1.2 % (0.0-2.0); Eosinophils # (auto) 0.2 10 ^3/uL (0-0.8); Eosinophils % (auto) 1.9 % (0.0-7.0); Hematocrit 41.9 % (36.0-46.0); Hemoglobin 13.9 g/dL (12.2-16.2); Lymphocytes # (auto) 4.9 10 ^3/uL (0.4-5.4); Lymphocytes % (auto) 48.8 % (10.0-50.0); Mean Corpuscular Hemoglobin 28.9 pg (28.0-32.0); Mean Corpuscular Hgb Conc. 33.2 g/dL (32.0-36.0); Monocytes # (auto) 0.6 10 ^3/uL (0-1.3); Neutrophils # (auto) 4.2 10 ^3/uL (1.6-8.6); Neutrophils % (auto) 42.1 % (37.0-80.0); Nucleated Red Blood Cells % 0.1 %; Red Blood Cells 4.81 10^6/uL (4.0-5.20); Red Cell Distribution Width 14.9 % (11.8-14.3)
[2024-01-05 16:10] LABS: Urine Blood Negative /uL (Negative); Urine Clarity Clear (Clear); Urine Color Light-Yellow (Yellow); Urine Mucus FEW (None Seen); Urine Protein, UAD Negative (Negative); Urine Specific Gravity 1.019 (1.001-1.035); Urine Urobilinogen Normal (Negative); Urine WBC 4 /hpf (0 - 5); Urine pH 5.5 (5.0-9.0)
[2024-01-05 16:24] LABS: Alanine Aminotransferase 17 U/L (7-40); Albumin 4.6 g/dL (3.2-4.8); Alkaline Phosphatase 95 U/L (46-116); Anion Gap 6 (5-15); Aspartate Aminotransferase 9 U/L (13-40); Bilirubin, Total 0.4 mg/dL (0.2-1.0); Blood Urea Nitrogen 11 mg/dL (9-23); Calcium 9.8 mg/dL (8.5-10.1); Carbon Dioxide 24 mmol/L (20-30); Chloride 110 mmol/L (98-107); Glucose 85 mg/dL (74-106); Potassium 3.6 mmol/L (3.5-5.1); Sodium 140 mmol/L (136-145); Total Protein 7.4 g/dL (5.7-8.2)
[2024-01-05] MEDS: ONDANSETRON HCL 4 MG/2 ML VIAL IV ONE (18:34)
[2024-01-05] MEDS: MORPHINE SULFATE 4 MG/ML SYR/VIAL IV ONE (18:34)
[2024-01-05 18:35] VITALS: PULSE 89; RESP 18; O2SAT 97
[2024-01-05] MEDS: HYDROmorphone HCL 2 MG/ML VL/or syr IV ONE (21:01)
[2024-01-05 21:07] VITALS: BP 175/100; PULSE 78; RESP 18; TEMP 98; O2SAT 100
[2024-01-05] MEDS ORDERED: DICY10CA PO (22:28)
== END 2024-01-05 23:24 | disposition home or self-care (01) ==
LOC: ER 14:46
DX: R10.84 Generalized abdominal pain (principal); G89.18 Other acute postprocedural pain; T50.905A Adverse effect of unspecified drugs, medicaments and biological substances, initial encounter; F17.210 Nicotine dependence, cigarettes, uncomplicated; Z90.49 Acquired absence of other specified parts of digestive tract; Z90.710 Acquired absence of both cervix and uterus; Z98.51 Tubal ligation status; Y92.89 Other specified places as the place of occurrence of the external cause
CPT/HCPCS: 36415; 74176; 80053; 81001; 85025; 96374; 96375; 99285; J1170; J2270; J2405

== ENCOUNTER 2024-01-19 06:05 | Emergency (ER) | payer MEDICAID, OTHER ==
[~2024-01-19] VITALS: Ht 149.9 cm; Wt 70.8 kg
[~2024-01-19 06:05] MED LIST changes: +DICY10CA PO
[2024-01-19 07:29] LABS: Urine Amorphous Crystal FEW /hpf (None Seen); Urine Bacteria FEW /hpf (None Seen); Urine Blood Negative /uL (Negative); Urine Budding Yeast MODERATE /hpf (None Seen); Urine Clarity Turbid (Clear); Urine Color Colorless (Yellow); Urine Hyaline Cast FEW /lpf (0 - 2); Urine Mucus FEW (None Seen); Urine Protein, UAD TRACE (Negative); Urine Specific Gravity 1.019 (1.001-1.035); Urine Sperm PRESENT /hpf (None Seen); Urine Urobilinogen Normal (Negative); Urine WBC 6 /hpf (0 - 5); Urine pH 6.5 (5.0-9.0)
[2024-01-19 07:42] LABS: Basophils # (auto) 0.1 10 ^3/uL (0-0.2); Basophils % (auto) 1.1 % (0.0-2.0); Eosinophils # (auto) 0.1 10 ^3/uL (0-0.8); Eosinophils % (auto) 1.9 % (0.0-7.0); Hematocrit 42.6 % (36.0-46.0); Hemoglobin 14.5 g/dL (12.2-16.2); Lymphocytes # (auto) 2.9 10 ^3/uL (0.4-5.4); Lymphocytes % (auto) 37.9 % (10.0-50.0); Mean Corpuscular Hemoglobin 29.2 pg (28.0-32.0); Mean Corpuscular Volume 85.9 fL (80.0-100.0); Monocytes # (auto) 0.5 10 ^3/uL (0-1.3); Neutrophils % (auto) 53.1 % (37.0-80.0); Nucleated Red Blood Cells % 0.1 %; Red Blood Cells 4.96 10^6/uL (4.0-5.20); Red Cell Distribution Width 15.2 % (11.8-14.3); White Blood Cell 7.6 10^3/uL (4.4-10.8)
[2024-01-19] MEDS: MAALOX PLUS or MAALOX 30 ML PO ONE (07:53)
[2024-01-19] MEDS: SODIUM CHLORIDE 0.9% 1,000 ML IV ONE ×2 (07:53→09:47)
[2024-01-19 07:56] LABS: INR 1.04 (0.9-1.15)
[2024-01-19 07:59] LABS: Alanine Aminotransferase 19 U/L (7-40); Albumin 4.6 g/dL (3.2-4.8); Alkaline Phosphatase 90 U/L (46-116); Anion Gap 7 (5-15); Aspartate Aminotransferase 16 U/L (13-40); BUN/Creatinine Ratio 15.6 (10.0-20.0); Bilirubin, Total 0.9 mg/dL (0.2-1.0); Blood Urea Nitrogen 10 mg/dL (9-23); Calcium 9.9 mg/dL (8.7-10.4); Carbon Dioxide 23 mmol/L (20-30); Chloride 110 mmol/L (98-107); Glucose 108 mg/dL (74-106); Lipase 32 U/L (12-53); Potassium 3.7 mmol/L (3.5-5.1); Sodium 140 mmol/L (136-145); Total Protein 7.4 g/dL (5.7-8.2)
[2024-01-19] MEDS: FAMOTIDINE (10MG/ML) 2ML VL IV ONE (08:16)
[2024-01-19] MEDS: KETOROLAC TROMETH 30 MG/ML 1ML VIAL IV ONE (08:16)
[2024-01-19] MEDS: ONDANSETRON HCL 4 MG/2 ML VIAL IV ONE (08:16)
[2024-01-19] MEDS: MORPHINE SULFATE 4 MG/ML SYR/VIAL IV ONE ×2 (08:18→09:57)
[2024-01-19] MEDS: METOCLOPRAMIDE HCL 5MG/ml INJ 2ml VIAL IV ONE (08:19)
[2024-01-19] MEDS ORDERED: MICO1KIT10 VA (10:13)
[2024-01-19] MEDS ORDERED: ZOFR4T PO (10:13)
[2024-01-19 10:19] VITALS: BP 160/86; PULSE 66; RESP 15; TEMP 97; O2SAT 99
== END 2024-01-19 11:04 | disposition home or self-care (01) ==
LOC: ER 06:05
DX: A04.8 Other specified bacterial intestinal infections (principal); B37.9 Candidiasis, unspecified; E86.0 Dehydration; I10 Essential (primary) hypertension; F17.210 Nicotine dependence, cigarettes, uncomplicated; Z90.49 Acquired absence of other specified parts of digestive tract; Z90.710 Acquired absence of both cervix and uterus; Z98.51 Tubal ligation status; Z79.899 Other long term (current) drug therapy
CPT/HCPCS: 36415; 74176; 80053; 81001; 83690; 85025; 85610; 85730; 96361; 96374; 96375; 96376; 99285; J1885; J2270; J2405; J2765; J3490; J7030

== ENCOUNTER 2024-01-22 04:52 | Inpatient (IN) | payer OTHER, MEDICAID ==
[~2024-01-22] VITALS: Ht 149.9 cm; Wt 79.9 kg
[~2024-01-22 04:52] MED LIST changes: +MICO1KIT10 VA; +ZOFR4T PO
[2024-01-22] MEDS: PANTOPRAZOLE 40 MG/10 ML VIAL INJ IV ONE (07:45)
[2024-01-22 08:00] VITALS: PULSE 71; RESP 22; O2SAT 98
[2024-01-22] MEDS: LIDOCAINE VISCOUS 2% 15ML UD PO ONE (08:00)
[2024-01-22] MEDS: MAALOX PLUS or MAALOX 30 ML PO ONE (08:00)
[2024-01-22] MEDS: SODIUM CHLORIDE 0.9% 1,000 ML IVB ONE (08:01)
[2024-01-22] MEDS: MORPHINE SULFATE 4 MG/ML SYR/VIAL IV ONE (08:03)
[2024-01-22] MEDS: ONDANSETRON HCL 4 MG/2 ML VIAL IV ONE (08:03)
[2024-01-22] MEDS: PANTOPRAZOLE 80 MG in SODIUM CHL 0.9% 100 ML IV ONE ×2 (08:03→09:08)
[2024-01-22 08:10] LABS: Basophils # (auto) 0.1 10 ^3/uL (0-0.2); Basophils % (auto) 0.9 % (0.0-2.0); Eosinophils # (auto) 0.1 10 ^3/uL (0-0.8); Eosinophils % (auto) 1.1 % (0.0-7.0); Hematocrit 43.3 % (36.0-46.0); Hemoglobin 14.4 g/dL (12.2-16.2); Lymphocytes # (auto) 3.6 10 ^3/uL (0.4-5.4); Mean Corpuscular Hemoglobin 29.1 pg (28.0-32.0); Mean Corpuscular Hgb Conc. 33.2 g/dL (32.0-36.0); Mean Corpuscular Volume 87.5 fL (80.0-100.0); Monocytes # (auto) 0.5 10 ^3/uL (0-1.3); Monocytes % (auto) 4.8 % (0.0-12.0); Neutrophils # (auto) 5.4 10 ^3/uL (1.6-8.6); Neutrophils % (auto) 56.2 % (37.0-80.0); Nucleated Red Blood Cells % 0.1 %; Red Blood Cells 4.95 10^6/uL (4.0-5.20); Red Cell Distribution Width 15.8 % (11.8-14.3); White Blood Cell 9.6 10^3/uL (4.4-10.8)
[2024-01-22 08:23] LABS: Alanine Aminotransferase 17 U/L (7-40); Alkaline Phosphatase 92 U/L (46-116); Anion Gap 7 (5-15); Aspartate Aminotransferase 11 U/L (13-40); BUN/Creatinine Ratio 16.7 (10.0-20.0); Blood Urea Nitrogen 10 mg/dL (9-23); Calcium 9.8 mg/dL (8.5-10.1); Carbon Dioxide 22 mmol/L (20-30); Chloride 110 mmol/L (98-107); Glucose 109 mg/dL (74-106); Potassium 3.6 mmol/L (3.5-5.1); Sodium 139 mmol/L (136-145)
[2024-01-22 08:24] LABS: Albumin 4.5 g/dL (3.2-4.8); Bilirubin, Total 0.4 mg/dL (0.2-1.0); Total Protein 7.2 g/dL (5.7-8.2)
[2024-01-22] MEDS: HYDROmorphone HCL 2 MG/ML VL/or syr IV ONE ×2 (09:06→12:00)
[2024-01-22 10:40] LABS: Lipase 34 U/L (12-53)
[2024-01-22] MEDS: SODIUM CHLORIDE 0.9% 1,000 ML IV SCH (12:00)
[2024-01-22] MEDS ORDERED: DOCUSATE SOD 100 MG CAP PO PRN (12:00)
[2024-01-22] MEDS: GASTROGRAFIN 120 ML SOL ONE (12:10)
[2024-01-22] MEDS: LORazepam 2MG/ML-1ML VIAL IV ONE (12:46)
[2024-01-22] MEDS: TIZANIDINE HYDROCHLORIDE 4 MG PO SCH (14:00)
[2024-01-22] MEDS: DICYCLOMINE HCL 10 MG CAP PO SCH (14:00)
[2024-01-22] MEDS: GABAPENTIN 300 MG CAP PO SCH (14:00)
[2024-01-22 15:06] LABS: Urine Bacteria None Seen /hpf (None Seen)
[2024-01-22] MEDS: PANTOPRAZOLE 40mg/50ML NS AE 50 ML IV SCH (15:09)
[2024-01-22 15:18] LABS: Urine Blood TRACE /uL (Negative); Urine Clarity Clear (Clear); Urine Color Light-Yellow (Yellow); Urine Mucus FEW (None Seen); Urine Protein, UAD TRACE (Negative); Urine Specific Gravity 1.017 (1.001-1.035); Urine Urobilinogen Normal (Negative); Urine WBC <1 /hpf (0 - 5)
[2024-01-22] MEDS: MORPHINE SULFATE INJ 2 MG/ml SYRG IV PRN (15:43)
[2024-01-22] MEDS: cefTRIAXone 1GM/50ML D5W 50 ML IV ONE (16:00)
[2024-01-22] MEDS: metroNIDAZOLE 500MG/100ML 100 ML IV ONE (16:00)
[2024-01-22] MEDS: ONDANSETRON HCL 4 MG/2 ML VIAL IV PRN (18:06)
[2024-01-22 20:00] VITALS: PULSE 56; RESP 18; O2SAT 100
[2024-01-22 21:00] VITALS: BP 157/54; PULSE 56; RESP 18; TEMP 97.5; O2SAT 100
[2024-01-22] MEDS: SENNOSIDES DOCUSATE SODIUM PO SCH (22:00)
[2024-01-22] MEDS: metroNIDAZOLE 500MG/100ML 100 ML IV SCH (22:35)
[2024-01-23 00:49] VITALS: BP 143/78; PULSE 64; RESP 18; TEMP 97.7; O2SAT 96
[2024-01-23 05:00] VITALS: BP 130/97; PULSE 73; RESP 18; TEMP 98; O2SAT 93
[2024-01-23 07:54] LABS: Basophils # (auto) 0.1 10 ^3/uL (0-0.2); Basophils % (auto) 0.9 % (0.0-2.0); Eosinophils # (auto) 0.2 10 ^3/uL (0-0.8); Eosinophils % (auto) 2.6 % (0.0-7.0); Hematocrit 38.4 % (36.0-46.0); Hemoglobin 12.9 g/dL (12.2-16.2); Lymphocytes # (auto) 2.8 10 ^3/uL (0.4-5.4); Lymphocytes % (auto) 36.5 % (10.0-50.0); Mean Corpuscular Hemoglobin 29.2 pg (28.0-32.0); Mean Corpuscular Hgb Conc. 33.6 g/dL (32.0-36.0); Mean Corpuscular Volume 87.1 fL (80.0-100.0); Monocytes # (auto) 0.4 10 ^3/uL (0-1.3); Monocytes % (auto) 5.2 % (0.0-12.0); Neutrophils # (auto) 4.2 10 ^3/uL (1.6-8.6); Neutrophils % (auto) 54.8 % (37.0-80.0); Red Blood Cells 4.41 10^6/uL (4.0-5.20); Red Cell Distribution Width 15.5 % (11.8-14.3); White Blood Cell 7.6 10^3/uL (4.4-10.8)
[2024-01-23 08:12] LABS: Alanine Aminotransferase 12 U/L (7-40); Albumin 3.9 g/dL (3.2-4.8); Alkaline Phosphatase 80 U/L (46-116); Anion Gap 7 (5-15); Aspartate Aminotransferase 8 U/L (13-40); BUN/Creatinine Ratio 13.4 (10.0-20.0); Bilirubin, Total 0.6 mg/dL (0.2-1.0); Blood Urea Nitrogen 9 mg/dL (9-23); Carbon Dioxide 25 mmol/L (20-30); Chloride 108 mmol/L (98-107); Glucose 89 mg/dL (74-106); Potassium 3.6 mmol/L (3.5-5.1); Sodium 140 mmol/L (136-145); Total Protein 6.1 g/dL (5.7-8.2)
[2024-01-23 09:00] VITALS: BP 140/81; PULSE 65; RESP 18; TEMP 97.8; O2SAT 96
[2024-01-23] MEDS: cefTRIAXone 1GM/50ML D5W 50 ML IV SCH (09:52)
[2024-01-23] MEDS ORDERED: PANTOPRAZOLE 40 MG/10 ML VIAL INJ IV SCH (10:00)
[2024-01-23] MEDS: LISINOPRIL 20 MG TAB PO SCH (10:00)
[2024-01-23] MEDS: GASTROGRAFIN 120 ML SOL ONE (10:54)
[2024-01-23 13:00] VITALS: BP 157/84; PULSE 72; RESP 17; TEMP 98; O2SAT 95
[2024-01-23 17:00] VITALS: BP 166/96; PULSE 91; RESP 18; TEMP 97.5; O2SAT 100
[2024-01-23 21:00] VITALS: BP 136/79; PULSE 69; RESP 19; TEMP 97.8; O2SAT 98
[2024-01-24 01:00] VITALS: BP 155/93; PULSE 66; RESP 19; TEMP 97.7; O2SAT 97
[2024-01-24 05:08] VITALS: BP 149/85; PULSE 64; RESP 18; TEMP 97.7; O2SAT 100
[2024-01-24 08:12] VITALS: BP 116/80; PULSE 80; RESP 20; TEMP 98.6; O2SAT 95
[2024-01-24] MEDS ORDERED: MAALOX PLUS or MAALOX 30 ML GT PRN (08:45)
[2024-01-24] MEDS: PANTOPRAZOLE 40 MG/10 ML VIAL INJ IV SCH (10:00)
[2024-01-24 16:20] VITALS: BP 153/77; PULSE 66; RESP 18; TEMP 98.7; O2SAT 100
[2024-01-24 16:51] LABS: Urine Bacteria FEW /hpf (None Seen); Urine Blood TRACE /uL (Negative); Urine Clarity Clear (Clear); Urine Color Colorless (Yellow); Urine Protein, UAD Negative (Negative); Urine Specific Gravity 1.005 (1.001-1.035); Urine Urobilinogen Normal (Negative); Urine WBC <1 /hpf (0 - 5)
[2024-01-24 17:00] VITALS: BP 143/68; PULSE 71; RESP 18; TEMP 98.2; O2SAT 100
[2024-01-24 21:00] VITALS: BP 172/93; PULSE 66; RESP 18; TEMP 97.5; O2SAT 100
[2024-01-25] VITALS (7 sets, daily range): BP systolic 133–186; BP diastolic 66–99; PULSE 51–78; RESP 16–20; TEMP 97.5–98.7; O2SAT 94–100
[2024-01-25 07:26] LABS: Basophils # (auto) 0.1 10 ^3/uL (0-0.2); Basophils % (auto) 0.8 % (0.0-2.0); Eosinophils # (auto) 0.2 10 ^3/uL (0-0.8); Eosinophils % (auto) 2.3 % (0.0-7.0); Hematocrit 40.5 % (36.0-46.0); Hemoglobin 13.5 g/dL (12.2-16.2); Lymphocytes # (auto) 2.9 10 ^3/uL (0.4-5.4); Mean Corpuscular Hemoglobin 28.6 pg (28.0-32.0); Mean Corpuscular Hgb Conc. 33.3 g/dL (32.0-36.0); Mean Corpuscular Volume 85.9 fL (80.0-100.0); Monocytes # (auto) 0.4 10 ^3/uL (0-1.3); Monocytes % (auto) 5.8 % (0.0-12.0); Neutrophils # (auto) 3.6 10 ^3/uL (1.6-8.6); Neutrophils % (auto) 50.1 % (37.0-80.0); Nucleated Red Blood Cells % 0.1 %; Red Blood Cells 4.71 10^6/uL (4.0-5.20); Red Cell Distribution Width 15.8 % (11.8-14.3); White Blood Cell 7.1 10^3/uL (4.4-10.8)
[2024-01-25 07:46] LABS: Alanine Aminotransferase 13 U/L (7-40); Albumin 4.1 g/dL (3.2-4.8); Alkaline Phosphatase 80 U/L (46-116); Anion Gap 11 (5-15); Aspartate Aminotransferase 10 U/L (13-40); BUN/Creatinine Ratio 10.7 (10.0-20.0); Blood Urea Nitrogen 6 mg/dL (9-23); Calcium 9.7 mg/dL (8.7-10.4); Carbon Dioxide 23 mmol/L (20-30); Chloride 109 mmol/L (98-107); Glucose 86 mg/dL (74-106); Lipase 36 U/L (12-53); Potassium 3.2 mmol/L (3.5-5.1); Sodium 143 mmol/L (136-145)
[2024-01-25 07:47] LABS: Bilirubin, Total 0.5 mg/dL (0.2-1.0); Total Protein 6.7 g/dL (5.7-8.2)
[2024-01-25 08:01] LABS: LDL Cholesterol 85 mg/dL (< 100); Magnesium 1.6 mg/dL (1.6-2.6); Triglycerides 98 mg/dL (< 150)
[2024-01-25 08:03] LABS: Cholesterol 144 mg/dL (< 200); HDL Cholesterol 38 mg/dL (40-59)
[2024-01-25] MEDS: OMNIPAQUE 12mg/ml 500ml ORAL SOLUTION PO ONE ×2 (09:38→09:59)
[2024-01-25] MEDS: POTASSIUM EFFERVESENT TAB 25 MEQ PO ONE (16:13)
[2024-01-25] MEDS: hydrALAZINE HCL 20 MG/ML VL IV PRN (18:26)
[2024-01-26] VITALS (8 sets, daily range): BP systolic 126–156; BP diastolic 72–99; PULSE 49–80; RESP 14–20; TEMP 98.1–98.9; O2SAT 94–100
[2024-01-26 06:26] LABS: Chloride 109 mmol/L (98-107); Potassium 3.5 mmol/L (3.5-5.1); Sodium 143 mmol/L (136-145)
[2024-01-26 06:27] LABS: Anion Gap 8 (5-15); Calcium 9.5 mg/dL (8.7-10.4); Carbon Dioxide 26 mmol/L (20-30)
[2024-01-26 06:32] LABS: BUN/Creatinine Ratio 9.8 (10.0-20.0); Blood Urea Nitrogen 5 mg/dL (9-23); Glucose 88 mg/dL (74-106)
[2024-01-26] MEDS ORDERED: FLUMAZENIL 0.1 MG/ML INJ 10ML MDV IV ONE (07:36)
[2024-01-26] MEDS ORDERED: SODIUM CHLORIDE LOCK 10 ML ONE (07:36)
[2024-01-26] MEDS ORDERED: NALOXONE HCL 0.4 MG/ML VIAL ONE (07:36)
[2024-01-26] MEDS: LIDOCAINE VISCOUS 2% 15ML UD ONE (08:41)
[2024-01-26] MEDS: fentaNYL CITRATE 100 MCG/2 ML VL ONE (08:42)
[2024-01-26] MEDS: MIDAZOLAM HCL 5 MG/ML-1ML VIAL ONE (08:42)
[2024-01-26] MEDS: diphenhdrAMINE HCL 50 MG/1 ML VL ONE (08:42)
[2024-01-26] MEDS: SUCRALFATE 1 GM/10 ML ORAL SUSP PO ONE (12:46)
[2024-01-26] MEDS: SUCRALFATE 1 GM/10 ML ORAL SUSP GT SCH (22:13)
[2024-01-26] MEDS: metroNIDAZOLE 500 MG TAB PO SCH (22:14)
[2024-01-27] VITALS (8 sets, daily range): BP systolic 123–158; BP diastolic 58–101; PULSE 73–104; RESP 17–20; TEMP 97.5–98.5; O2SAT 94–100
[2024-01-27] MEDS: ALPRAZolam 0.5 MG TAB PO PRN (00:43)
[2024-01-27] MEDS: ACETAMINOPHEN 325 MG TAB PO PRN (07:45)
[2024-01-27 12:28] LABS: INR 1.03 (0.9-1.15); Partial Thromboplastin Time 29.1 SEC (24.5-34.5); Prothrombin Time 10.9 sec (9.3-11.8)
[2024-01-28] VITALS (8 sets, daily range): BP systolic 125–160; BP diastolic 87–110; PULSE 58–94; RESP 19–22; TEMP 97.4–98.6; O2SAT 92–99
[2024-01-28 06:15] LABS: Basophils # (auto) 0.1 10 ^3/uL (0-0.2); Basophils % (auto) 0.8 % (0.0-2.0); Eosinophils # (auto) 0.3 10 ^3/uL (0-0.8); Eosinophils % (auto) 3.4 % (0.0-7.0); Hematocrit 41.8 % (36.0-46.0); Hemoglobin 13.9 g/dL (12.2-16.2); Lymphocytes # (auto) 3.5 10 ^3/uL (0.4-5.4); Lymphocytes % (auto) 39.9 % (10.0-50.0); Mean Corpuscular Hgb Conc. 33.2 g/dL (32.0-36.0); Mean Corpuscular Volume 87.3 fL (80.0-100.0); Monocytes # (auto) 0.6 10 ^3/uL (0-1.3); Monocytes % (auto) 6.5 % (0.0-12.0); Neutrophils # (auto) 4.3 10 ^3/uL (1.6-8.6); Neutrophils % (auto) 49.4 % (37.0-80.0); Nucleated Red Blood Cells % 0.2 %; Red Blood Cells 4.79 10^6/uL (4.0-5.20); Red Cell Distribution Width 15.9 % (11.8-14.3); White Blood Cell 8.8 10^3/uL (4.4-10.8)
[2024-01-28 06:47] LABS: Alanine Aminotransferase 15 U/L (7-40); Albumin 3.8 g/dL (3.2-4.8); Alkaline Phosphatase 73 U/L (46-116); Anion Gap 7 (5-15); Aspartate Aminotransferase 11 U/L (13-40); BUN/Creatinine Ratio 12.1 (10.0-20.0); Blood Urea Nitrogen 7 mg/dL (9-23); Calcium 9.1 mg/dL (8.7-10.4); Carbon Dioxide 24 mmol/L (20-30); Chloride 109 mmol/L (98-107); Glucose 88 mg/dL (74-106); Potassium 3.7 mmol/L (3.5-5.1); Sodium 140 mmol/L (136-145)
[2024-01-28 06:48] LABS: Bilirubin, Total 0.2 mg/dL (0.2-1.0); Total Protein 6.3 g/dL (5.7-8.2)
[2024-01-28] MEDS: D5W/SOD CHL 0.45% 1,000 ML IV SCH (11:53)
[2024-01-28] MEDS: amLODIPine BESYLATE 5 MG TAB PO ONE (11:54)
[2024-01-28] MEDS: ALPRAZolam 0.5 MG TAB PO PRN (14:24)
[2024-01-28] MEDS: SUCRALFATE 1 GM/10 ML ORAL SUSP PO SCH (21:12)
[2024-01-29] VITALS (7 sets, daily range): BP systolic 102–141; BP diastolic 62–92; PULSE 67–90; RESP 13–22; TEMP 97.4–98; O2SAT 88–98
[2024-01-29] MEDS ORDERED: fentaNYL CITRATE 100 MCG/2 ML VL ONE (07:13)
[2024-01-29] MEDS ORDERED: PROPOFOL 10 MG/ML 20 ML IV ONE (07:13)
[2024-01-29] MEDS: SUCCINYLCHOLINE CHLORIDE 20 MG/ML 10ML VIAL IV ONE (08:06)
[2024-01-29] MEDS: ceFAZolin 2 GM/D5W50ml 50 ML IV ONE (08:12)
[2024-01-29] MEDS ORDERED: ePHEDrine SULFATE 50 MG/ML AMP ONE (08:24)
[2024-01-29] MEDS ORDERED: ROCURONIUM 10MG/ML 10ML VIAL IV ONE (08:25)
[2024-01-29] MEDS: BUPIVACAINE W/ EPINEPH 0.5% INJ 50ML MDV IJ ONE (08:32)
[2024-01-29] MEDS: ceFAZolin 1GM VL ONE (08:50)
[2024-01-29] MEDS ORDERED: MEPERIDINE HCL (25 MG/ML) 1ML VIAL ONE ×3 (08:52→09:34)
[2024-01-29] MEDS ORDERED: SUGAMMADEX 200mg/2ml Vial (100MG/ML) IV ONE (09:16)
[2024-01-29] MEDS: ROPIVACAINE 0.5% (5MG/ML) 20ML AMPULE IJ ONE (09:26)
[2024-01-29] MEDS ORDERED: ONDANSETRON HCL 4 MG/2 ML VIAL IV PRN (09:30)
[2024-01-29] MEDS ORDERED: HYDROmorphone HCL 2 MG/ML VL/or syr IV PRN (10:00)
[2024-01-29] MEDS ORDERED: MEPERIDINE HCL (25 MG/ML) 1ML VIAL IV PRN (10:00)
[2024-01-29] MEDS: amLODIPine BESYLATE 5 MG TAB PO SCH (10:00)
[2024-01-29] MEDS ORDERED: ONDANSETRON HCL 4 MG/2 ML VIAL IV ONE (10:00)
[2024-01-29] MEDS: HYDROmorphone HCL 2 MG/ML VL/or syr IV ONE ×2 (10:23→10:49)
[2024-01-29] MEDS: ACETAMINOPHEN IV 1000 MG/100ML (10MG/ML) IV STA (11:29)
[2024-01-29] MEDS: PANTOPRAZOLE 40 MG/10 ML VIAL INJ IV SCH (11:45)
[2024-01-29] MEDS: D5W/SOD CHL 0.45%/KCL 20MEQ 1,000 ML IV SCH (13:40)
[2024-01-29] MEDS: HYDROmorphone HCL 2 MG/ML VL/or syr IV PRN (18:33)
[2024-01-29] MEDS: traMADol HCL 50 MG TAB PO PRN (22:19)
[2024-01-30] VITALS (7 sets, daily range): BP systolic 84–139; BP diastolic 48–75; PULSE 48–90; RESP 14–22; TEMP 97.3–98.3; O2SAT 91–98
[2024-01-30] MEDS ORDERED: HYDROCORTISONE ACET 25 MG RECTAL SUPP PR PRN (12:30)
[2024-01-30] MEDS: DOCUSATE SOD 100 MG CAP PO ONE (14:19)
[2024-01-30] MEDS ORDERED: DULO60CA41 PO (17:02)
[2024-01-30] MEDS: HYDROmorphone HCL 2 MG/ML VL/or syr IV PRN (18:30)
[2024-01-30] MEDS: DOCUSATE SOD 100 MG CAP PO SCH (22:05)
[2024-01-31 01:00] VITALS: BP 90/47; PULSE 50; RESP 18; TEMP 97.6; O2SAT 97
[2024-01-31 05:00] VITALS: BP 120/60; PULSE 60; RESP 21; TEMP 98; O2SAT 98
[2024-01-31 05:24] LABS: Basophils # (auto) 0.1 10 ^3/uL (0-0.2); Basophils % (auto) 0.7 % (0.0-2.0); Eosinophils # (auto) 0.2 10 ^3/uL (0-0.8); Eosinophils % (auto) 2.1 % (0.0-7.0); Hematocrit 32.7 % (36.0-46.0); Hemoglobin 10.9 g/dL (12.2-16.2); Lymphocytes # (auto) 3.6 10 ^3/uL (0.4-5.4); Lymphocytes % (auto) 34.6 % (10.0-50.0); Mean Corpuscular Hemoglobin 29.4 pg (28.0-32.0); Mean Corpuscular Hgb Conc. 33.5 g/dL (32.0-36.0); Mean Corpuscular Volume 87.9 fL (80.0-100.0); Monocytes # (auto) 0.8 10 ^3/uL (0-1.3); Neutrophils # (auto) 5.7 10 ^3/uL (1.6-8.6); Neutrophils % (auto) 54.6 % (37.0-80.0); Red Blood Cells 3.72 10^6/uL (4.0-5.20); Red Cell Distribution Width 16.6 % (11.8-14.3); White Blood Cell 10.4 10^3/uL (4.4-10.8)
[2024-01-31 05:37] LABS: Alanine Aminotransferase 15 U/L (7-40); Albumin 3.3 g/dL (3.2-4.8); Alkaline Phosphatase 64 U/L (46-116); Anion Gap 4 (5-15); Aspartate Aminotransferase 11 U/L (13-40); BUN/Creatinine Ratio 17.5 (10.0-20.0); Bilirubin, Total < 0.2 mg/dL (0.2-1.0); Blood Urea Nitrogen 10 mg/dL (9-23); Calcium 8.7 mg/dL (8.7-10.4); Carbon Dioxide 27 mmol/L (20-30); Chloride 109 mmol/L (98-107); Glucose 94 mg/dL (74-106); Magnesium 1.8 mg/dL (1.6-2.6); Potassium 3.9 mmol/L (3.5-5.1); Sodium 140 mmol/L (136-145); Total Protein 5.3 g/dL (5.7-8.2)
[2024-01-31 08:00] VITALS: RESP 19
[2024-01-31 08:33] VITALS: BP 134/94; PULSE 74; RESP 19; TEMP 98; O2SAT 96
[2024-01-31] MEDS: guaiFENesin-DM 100/10mg/5ml SYR PO ONE (09:30)
[2024-01-31] MEDS: HYDROCORTISONE 2.5% TOPICAL CREAM 30GM TUBE PR ONE (09:30)
[2024-01-31] MEDS ORDERED: GUAI100S6 PO (09:48)
[2024-01-31] MEDS ORDERED: DEXT1SYP9 PO (09:50)
[2024-01-31] MEDS ORDERED: CEPH500C PO (09:50)
[2024-01-31] MEDS ORDERED: HYD25TP PR (09:50)
[2024-01-31] MEDS: DULoxetine HCL 30 MG CAP PO SCH (09:59)
[2024-01-31 12:15] VITALS: BP 111/62; PULSE 66; RESP 18; TEMP 36.7; O2SAT 96
[2024-01-31 12:35] VITALS: BP 111/62; PULSE 66; RESP 19; TEMP 97.7; O2SAT 96
== END 2024-01-31 13:30 | disposition home or self-care (01) | DRG 335 ==
LOC: ER 04:52 → OVERFLOW 12:03 → CENTRAL 14:15
PROVIDERS: ADMIT Nurse Practitioner Family; ATTEND Internal Medicine Geriatric Medicine
PROC: 0DB68ZX Excision of Stomach, Via Natural or Artificial Opening Endoscopic, Diagnostic (ICD-10-PCS; 2024-01-26)
PROC: 0DB58ZX Excision of Esophagus, Via Natural or Artificial Opening Endoscopic, Diagnostic (ICD-10-PCS; 2024-01-26)
PROC: 0DB98ZX Excision of Duodenum, Via Natural or Artificial Opening Endoscopic, Diagnostic (ICD-10-PCS; principal; 2024-01-26 08:35)
PROC: 05HD33Z Insertion of Infusion Device into Right Cephalic Vein, Percutaneous Approach (ICD-10-PCS; 2024-01-27)
PROC: B54MZZA Ultrasonography of Right Upper Extremity Veins, Guidance (ICD-10-PCS; 2024-01-27)
PROC: 0DNW0ZZ Release Peritoneum, Open Approach (ICD-10-PCS; 2024-01-29)
PROC: 0WUF0JZ Supplement Abdominal Wall with Synthetic Substitute, Open Approach (ICD-10-PCS; 2024-01-29)
DX: K43.9 Ventral hernia without obstruction or gangrene (principal); K21.01 Gastro-esophageal reflux disease with esophagitis, with bleeding; K29.71 Gastritis, unspecified, with bleeding; E66.01 Morbid (severe) obesity due to excess calories; I10 Essential (primary) hypertension; F17.210 Nicotine dependence, cigarettes, uncomplicated; F41.9 Anxiety disorder, unspecified; K44.9 Diaphragmatic hernia without obstruction or gangrene; Z90.710 Acquired absence of both cervix and uterus; Z90.49 Acquired absence of other specified parts of digestive tract; Z98.51 Tubal ligation status; Z68.35 Body mass index [BMI] 35.0-35.9, adult; Z43.2 Encounter for attention to ileostomy
CPT/HCPCS: 36415; 43239; 71045; 74018; 74177; 74250; 80048; 80053; 80061; 81001; 82270; 83690; 83735; 84443; 85025; 85610; 85730; 86850; 86900; 86901; 87045; 87081; 87086; 87177; 87340; 87427; 87493; 88302; 93005; 96365; 96375; G0378; J0131; J0330; J0690; J2250; J2405; J2470; J2704; J3490

== ENCOUNTER 2024-02-03 05:19 | Inpatient (IN) | payer OTHER, MEDICAID ==
[~2024-02-03] VITALS: Ht 149.9 cm; Wt 74.0 kg
[~2024-02-03 05:19] MED LIST changes: +CEPH500C PO; +DEXT1SYP9 PO; +DULO60CA41 PO; +GUAI100S6 PO; +HYD25TP PR
[2024-02-03] MEDS: MORPHINE SULFATE 4 MG/ML SYR/VIAL IV ONE ×2 (06:36→07:54)
[2024-02-03] MEDS: ONDANSETRON HCL 4 MG/2 ML VIAL IV ONE ×2 (06:36→07:53)
[2024-02-03] MEDS: cloNIDine HCL 0.1 MG TAB PO ONE (07:33)
[2024-02-03] MEDS: SODIUM CHLORIDE 0.9% 1,000 ML IVB ONE (07:52)
[2024-02-03 08:07] VITALS: PULSE 85; RESP 15; O2SAT 95
[2024-02-03 08:09] LABS: Basophils # (auto) 0.1 10 ^3/uL (0-0.2); Basophils % (auto) 1.1 % (0.0-2.0); Eosinophils # (auto) 0.4 10 ^3/uL (0-0.8); Eosinophils % (auto) 4.2 % (0.0-7.0); Hematocrit 40.7 % (36.0-46.0); Hemoglobin 13.6 g/dL (12.2-16.2); Lymphocytes # (auto) 2.9 10 ^3/uL (0.4-5.4); Lymphocytes % (auto) 26.9 % (10.0-50.0); Mean Corpuscular Hemoglobin 28.9 pg (28.0-32.0); Mean Corpuscular Hgb Conc. 33.4 g/dL (32.0-36.0); Mean Corpuscular Volume 86.6 fL (80.0-100.0); Monocytes # (auto) 0.6 10 ^3/uL (0-1.3); Monocytes % (auto) 5.3 % (0.0-12.0); Neutrophils # (auto) 6.7 10 ^3/uL (1.6-8.6); Neutrophils % (auto) 62.5 % (37.0-80.0); Red Cell Distribution Width 16.4 % (11.8-14.3); White Blood Cell 10.7 10^3/uL (4.4-10.8)
[2024-02-03 08:23] LABS: Chloride 109 mmol/L (98-107); Potassium 3.8 mmol/L (3.5-5.1); Sodium 140 mmol/L (136-145)
[2024-02-03 08:24] LABS: Anion Gap 7 (5-15); Carbon Dioxide 24 mmol/L (20-30)
[2024-02-03 08:25] LABS: Calcium 9.5 mg/dL (8.7-10.4)
[2024-02-03 08:30] LABS: Blood Urea Nitrogen 11 mg/dL (9-23); Glucose 116 mg/dL (74-106)
[2024-02-03 11:27] LABS: Urine Bacteria None Seen /hpf (None Seen)
[2024-02-03 11:31] LABS: Urine Blood TRACE /uL (Negative); Urine Clarity Clear (Clear); Urine Color Light-Yellow (Yellow); Urine Mucus FEW (None Seen); Urine Protein, UAD TRACE (Negative); Urine Specific Gravity 1.023 (1.001-1.035); Urine Urobilinogen Normal (Negative); Urine WBC 3 /hpf (0 - 5)
[2024-02-03] MEDS: SODIUM CHLORIDE 0.9% 1,000 ML IV ONE (13:00)
[2024-02-03] MEDS ORDERED: MORPHINE SULFATE INJ 2 MG/ml SYRG IV PRN (13:30)
[2024-02-03] MEDS ORDERED: NITROGLYCERIN 0.4 MG SL TAB SL PRN (13:30)
[2024-02-03] MEDS: LISINOPRIL 20 MG TAB PO ONE (14:07)
[2024-02-03] MEDS: D5W/SOD CHL 0.45%/KCL 20MEQ 1,000 ML IV SCH (15:23)
[2024-02-03 15:28] LABS: INR 0.98 (0.9-1.15); Partial Thromboplastin Time 27.7 SEC (24.5-34.5); Prothrombin Time 10.4 sec (9.3-11.8)
[2024-02-03 16:31] VITALS: BP 146/73; PULSE 56; RESP 16; TEMP 98; O2SAT 100
[2024-02-03] MEDS: HYDROmorphone HCL 2 MG/ML VL/or syr IV PRN (17:02)
[2024-02-03 17:04] VITALS: BP 146/73; PULSE 56; RESP 16; TEMP 98; O2SAT 100
[2024-02-03] MEDS: PIPERACILLIN-TAZOB 3.375GM 100 ML IV SCH ×2 (17:55→22:22)
[2024-02-03 20:00] VITALS: PULSE 56; RESP 18; O2SAT 97
[2024-02-03 21:00] VITALS: BP 132/77; PULSE 56; RESP 18; TEMP 98.2; O2SAT 97
[2024-02-04 05:00] VITALS: BP 138/82; PULSE 63; RESP 18; TEMP 98.3; O2SAT 99
[2024-02-04 08:33] VITALS: BP 145/79; PULSE 59; RESP 17; TEMP 98.2; O2SAT 100
[2024-02-04] MEDS: LISINOPRIL 20 MG TAB PO SCH (09:12)
[2024-02-04 12:54] VITALS: BP 150/78; PULSE 61; RESP 18; TEMP 98.1; O2SAT 99
[2024-02-04] MEDS: hydrALAZINE HCL 20 MG/ML VL IV PRN (16:05)
[2024-02-04 16:34] VITALS: BP 175/86; PULSE 73; RESP 17; TEMP 98; O2SAT 100
[2024-02-04 20:00] VITALS: PULSE 92; RESP 17; O2SAT 95
[2024-02-04] MEDS: ALPRAZolam 0.5 MG TAB PO PRN (20:57)
[2024-02-04 21:00] VITALS: BP 154/94; PULSE 92; RESP 17; TEMP 98; O2SAT 95
[2024-02-05] VITALS (7 sets, daily range): BP systolic 118–153; BP diastolic 75–89; PULSE 53–95; RESP 16–18; TEMP 97.6–98.2; O2SAT 95–100
[2024-02-05] MEDS: traMADol HCL 50 MG TAB PO PRN (02:24)
[2024-02-05] MEDS: DOCUSATE SOD 100 MG CAP PO ONE (14:22)
[2024-02-05] MEDS: DOCUSATE SOD 100 MG CAP PO SCH (22:08)
[2024-02-06] VITALS (7 sets, daily range): BP systolic 125–150; BP diastolic 75–98; PULSE 62–78; RESP 16–20; TEMP 97.3–98.4; O2SAT 95–99
[2024-02-06] MEDS: ONDANSETRON HCL 4 MG/2 ML VIAL IV PRN (09:38)
[2024-02-06 10:26] LABS: Basophils # (auto) 0.1 10 ^3/uL (0-0.2); Basophils % (auto) 0.9 % (0.0-2.0); Eosinophils # (auto) 0.5 10 ^3/uL (0-0.8); Eosinophils % (auto) 6.4 % (0.0-7.0); Hematocrit 39.2 % (36.0-46.0); Hemoglobin 13.3 g/dL (12.2-16.2); Lymphocytes # (auto) 3.8 10 ^3/uL (0.4-5.4); Lymphocytes % (auto) 45.1 % (10.0-50.0); Mean Corpuscular Hemoglobin 29.4 pg (28.0-32.0); Mean Corpuscular Volume 86.5 fL (80.0-100.0); Monocytes # (auto) 0.6 10 ^3/uL (0-1.3); Monocytes % (auto) 7.1 % (0.0-12.0); Neutrophils # (auto) 3.4 10 ^3/uL (1.6-8.6); Neutrophils % (auto) 40.5 % (37.0-80.0); Nucleated Red Blood Cells % 0.1 %; Red Blood Cells 4.54 10^6/uL (4.0-5.20); Red Cell Distribution Width 16.5 % (11.8-14.3); White Blood Cell 8.5 10^3/uL (4.4-10.8)
[2024-02-06 10:52] LABS: Alanine Aminotransferase 15 U/L (7-40); Albumin 4.3 g/dL (3.2-4.8); Alkaline Phosphatase 82 U/L (46-116); Anion Gap 7 (5-15); Aspartate Aminotransferase 9 U/L (13-40); BUN/Creatinine Ratio 14.1 (10.0-20.0); Blood Urea Nitrogen 9 mg/dL (9-23); Calcium 9.4 mg/dL (8.7-10.4); Carbon Dioxide 25 mmol/L (20-30); Chloride 107 mmol/L (98-107); Glucose 98 mg/dL (74-106); Potassium 4.2 mmol/L (3.5-5.1); Sodium 139 mmol/L (136-145)
[2024-02-06 10:53] LABS: Bilirubin, Total 0.3 mg/dL (0.2-1.0); Total Protein 6.9 g/dL (5.7-8.2)
[2024-02-06] MEDS ORDERED: OMNIPAQUE 12mg/ml 500ml ORAL SOLUTION PO ONE (12:07)
[2024-02-06] MEDS ORDERED: IOHEXOL 300 MG/ML 100ML BOTTLE IJ ONE (13:29)
[2024-02-06] MEDS: ACETAMINOPHEN 325 MG TAB PO PRN (14:26)
[2024-02-06] MEDS: GABAPENTIN 300 MG CAP PO ONE (15:53)
[2024-02-06] MEDS: LACTULOSE 20Gm/30ML SOLN PO ONE (15:53)
[2024-02-06] MEDS: GABAPENTIN 300 MG CAP PO SCH (22:34)
[2024-02-07 01:00] VITALS: BP 139/60; PULSE 64; RESP 17; TEMP 98.5; O2SAT 98
[2024-02-07 05:00] VITALS: BP 158/72; PULSE 64; RESP 18; TEMP 98.7; O2SAT 97
[2024-02-07 09:00] VITALS: BP 137/78; PULSE 67; RESP 18; TEMP 97.8; O2SAT 100
[2024-02-07] MEDS: SIMETHICONE 80 MG CHEWABLE TABLET PO SCH (11:37)
[2024-02-07 12:37] VITALS: BP_SYST 143; BP_SYST 155; BP_DIAS 67; BP_DIAS 98; PULSE 57; RESP 18; TEMP 97.9; O2SAT 98
[2024-02-07 16:50] VITALS: BP 178/86; PULSE 89; RESP 18; TEMP 98.6; O2SAT 96
[2024-02-07 21:00] VITALS: BP 144/106; PULSE 70; RESP 18; TEMP 98.4; O2SAT 98
[2024-02-08 01:00] VITALS: BP 165/101; PULSE 71; RESP 18; TEMP 98.1; O2SAT 97
[2024-02-08 05:00] VITALS: BP 158/96; PULSE 110; RESP 18; TEMP 98.2; O2SAT 97
[2024-02-08 09:00] VITALS: BP 162/99; PULSE 72; RESP 20; TEMP 98.6; O2SAT 100
[2024-02-08 12:10] VITALS: BP 146/97; PULSE 98; RESP 20; TEMP 98; O2SAT 95
[2024-02-08] MEDS ORDERED: AUG875T PO (13:33)
[2024-02-08 14:39] VITALS: PULSE 76; RESP 18
[2024-02-08 15:22] VITALS: BP 144/96; TEMP 36.7
== END 2024-02-08 16:00 | disposition home or self-care (01) | DRG 948 ==
LOC: ER 05:19 → OVERFLOW 13:19 → WEST WING 16:40
PROVIDERS: ADMIT Internal Medicine Geriatric Medicine; ATTEND Internal Medicine Geriatric Medicine
PROC: 05HF33Z Insertion of Infusion Device into Left Cephalic Vein, Percutaneous Approach (ICD-10-PCS; principal; 2024-02-03)
PROC: B54NZZA Ultrasonography of Left Upper Extremity Veins, Guidance (ICD-10-PCS; 2024-02-03)
DX: G89.18 Other acute postprocedural pain (principal); I10 Essential (primary) hypertension; F41.9 Anxiety disorder, unspecified; F17.210 Nicotine dependence, cigarettes, uncomplicated; Z90.49 Acquired absence of other specified parts of digestive tract; Z90.710 Acquired absence of both cervix and uterus; Z82.49 Family history of ischemic heart disease and other diseases of the circulatory system; Z83.3 Family history of diabetes mellitus; Y84.8 Other medical procedures as the cause of abnormal reaction of the patient, or of later complication, without mention of misadventure at the time of the procedure; Y92.89 Other specified places as the place of occurrence of the external cause
CPT/HCPCS: 36415; 74176; 74177; 80048; 80053; 81001; 85025; 85610; 85730; 86850; 86900; 86901; 87081; 96361; 96374; 96375; G0378; J2405; J2543

== ENCOUNTER 2024-05-11 06:19 | Emergency (ER) | payer OTHER, MEDICAID ==
[~2024-05-11] VITALS: Ht 149.9 cm; Wt 70.4 kg
[~2024-05-11 06:19] MED LIST changes: +AUG875T PO; -CEPH500C PO; -LOP2C PO; +LOPE2CAP16 PO
[2024-05-11 06:44] LABS: Urine Bacteria None Seen /hpf (None Seen)
[2024-05-11 07:07] LABS: Urine Blood Negative /uL (Negative); Urine Clarity Turbid (Clear); Urine Color Yellow (Yellow); Urine Mucus FEW (None Seen); Urine Protein, UAD TRACE (Negative); Urine Specific Gravity 1.024 (1.001-1.035); Urine Urobilinogen Normal (Negative); Urine WBC 1 /hpf (0 - 5); Urine pH 5.5 (5.0-9.0)
[2024-05-11 08:02] VITALS: PULSE 64; RESP 16; O2SAT 98
[2024-05-11] MEDS: ALPRAZolam 0.5 MG TAB PO ONE (08:49)
[2024-05-11] MEDS: ACETAMINOPHEN 325 MG TAB PO ONE (08:50)
[2024-05-11] MEDS: KETOROLAC TROMETH 30 MG/ML 1ML VIAL IV ONE (08:50)
[2024-05-11 09:04] LABS: Amphetamine Screen, Urine Neg (NEGATIVE); Barbiturate Scree,Urine Neg (NEGATIVE); Benzodiazephine Screen, Urine Neg (NEGATIVE); Cannabinoid Screen, Urine Pos (NEGATIVE); Cocaine Screen, Urine Neg (NEGATIVE); Opiate Scree,Urine Neg (NEGATIVE); Phencyclidine Screen, Urine Neg (NEGATIVE)
[2024-05-11 09:10] LABS: Basophils # (auto) 0.1 10 ^3/uL (0-0.2); Basophils % (auto) 0.8 % (0.0-2.0); Eosinophils # (auto) 0.1 10 ^3/uL (0-0.8); Eosinophils % (auto) 1.6 % (0.0-7.0); Hematocrit 46.5 % (36.0-46.0); Hemoglobin 15.5 g/dL (12.2-16.2); Lymphocytes # (auto) 3.4 10 ^3/uL (0.4-5.4); Lymphocytes % (auto) 38.2 % (10.0-50.0); Mean Corpuscular Hemoglobin 29.8 pg (28.0-32.0); Mean Corpuscular Hgb Conc. 33.2 g/dL (32.0-36.0); Mean Corpuscular Volume 89.6 fL (80.0-100.0); Monocytes # (auto) 0.5 10 ^3/uL (0-1.3); Monocytes % (auto) 6.2 % (0.0-12.0); Neutrophils # (auto) 4.7 10 ^3/uL (1.6-8.6); Neutrophils % (auto) 53.2 % (37.0-80.0); Platelet Count (auto) 458 10^3/uL (140-450); Red Blood Cells 5.19 10^6/uL (4.0-5.20); Red Cell Distribution Width 16.2 % (11.8-14.3); White Blood Cell 8.8 10^3/uL (4.4-10.8)
[2024-05-11 09:20] LABS: Alanine Aminotransferase 16 U/L (7-40); Albumin 4.8 g/dL (3.2-4.8); Alkaline Phosphatase 123 U/L (46-116); Anion Gap 8 (5-15); Aspartate Aminotransferase 12 U/L (13-40); BUN/Creatinine Ratio 14.7 (10.0-20.0); Bilirubin, Total 0.4 mg/dL (0.2-1.0); Blood Urea Nitrogen 10 mg/dL (9-23); Calcium 9.6 mg/dL (8.7-10.4); Carbon Dioxide 21 mmol/L (20-31); Chloride 109 mmol/L (98-107); Glucose 101 mg/dL (74-106); Lipase 34 U/L (12-53); Sodium 138 mmol/L (136-145); Total Protein 7.7 g/dL (5.7-8.2)
[2024-05-11 10:33] VITALS: BP 145/86; PULSE 67; RESP 16; TEMP 97.7; O2SAT 98
== END 2024-05-11 11:04 | disposition home or self-care (01) ==
LOC: ER 06:19
DX: R10.30 Lower abdominal pain, unspecified (principal); M54.59 Other low back pain; K76.0 Fatty (change of) liver, not elsewhere classified; D75.839 Thrombocytosis, unspecified; F17.210 Nicotine dependence, cigarettes, uncomplicated; I10 Essential (primary) hypertension; Z90.49 Acquired absence of other specified parts of digestive tract; Z90.89 Acquired absence of other organs; Z90.710 Acquired absence of both cervix and uterus; Z98.890 Other specified postprocedural states
CPT/HCPCS: 36415; 71046; 72132; 74177; 80053; 80307; 81001; 83690; 84484; 85025; 93005; 96374; 99285; J1885

== ENCOUNTER 2024-06-01 07:28 | Inpatient (IN) | payer OTHER, MEDICAID ==
[~2024-06-01] VITALS: Ht 149.9 cm; Wt 72.6 kg
[2024-06-01 08:30] VITALS: PULSE 65; RESP 17; O2SAT 97
[2024-06-01] MEDS: SODIUM CHLORIDE 0.9% 1,000 ML IV ONE (09:10)
[2024-06-01 09:14] LABS: Basophils # (auto) 0 10 ^3/uL (0-0.2); Basophils % (auto) 0.5 % (0.0-2.0); Eosinophils # (auto) 0.2 10 ^3/uL (0-0.8); Eosinophils % (auto) 2.3 % (0.0-7.0); Hematocrit 44.7 % (36.0-46.0); Hemoglobin 14.8 g/dL (12.2-16.2); Lymphocytes # (auto) 3.4 10 ^3/uL (0.4-5.4); Lymphocytes % (auto) 39.9 % (10.0-50.0); Mean Corpuscular Hemoglobin 30.1 pg (28.0-32.0); Mean Corpuscular Hgb Conc. 33.2 g/dL (32.0-36.0); Mean Corpuscular Volume 90.7 fL (80.0-100.0); Monocytes # (auto) 0.5 10 ^3/uL (0-1.3); Monocytes % (auto) 5.7 % (0.0-12.0); Neutrophils # (auto) 4.4 10 ^3/uL (1.6-8.6); Neutrophils % (auto) 51.6 % (37.0-80.0); Platelet Count (auto) 364 10^3/uL (140-450); Red Blood Cells 4.93 10^6/uL (4.0-5.20); Red Cell Distribution Width 15.8 % (11.8-14.3); White Blood Cell 8.6 10^3/uL (4.4-10.8)
[2024-06-01 09:18] LABS: Anion Gap 7 (5-15); Carbon Dioxide 23 mmol/L (20-31); Chloride 111 mmol/L (98-107); Potassium 4.5 mmol/L (3.5-5.1); Sodium 141 mmol/L (136-145)
[2024-06-01] MEDS: ONDANSETRON HCL 4 MG/2 ML VIAL IV ONE (09:18)
[2024-06-01] MEDS: MORPHINE SULFATE 4 MG/ML SYR/VIAL IV ONE (09:18)
[2024-06-01 09:24] LABS: BUN/Creatinine Ratio 16.9 (10.0-20.0); Blood Urea Nitrogen 11 mg/dL (9-23); Glucose 96 mg/dL (74-106)
--- NOTE | 2024-06-01 09:28 | ED.PDOC ---
History of Present Illness HPI Comments 48-year-old female presents with a chief complaint of abdominal pain with associated nausea and vomiting. Patient states that her pain is localized to her RLQ, non-radiating, and describes as pressure. Patient mentions that she was recently seen at [facility] for the same chief complaint and was discharged. Patient reports that she is currently receiving a referral for a GI specialist at [facility] due to "they say my large intestines is not working anymore". Patient is tearful upon evaluation. No other symptoms or modifying factors present at this time. Chief Complaint: Abdominal Pain Time Seen by MD: 08:45 Primary Care Provider: CHARLES Reviewed Notes: Medications, Allergies Allergies: Coded Allergies: NO KNOWN ALLERGIES (Unverified , 05/10/14) Home Meds Active Scripts Amoxicillin & Pot Clavulanate (AUGMENTIN TABLET) 875 Mg Tb, 875 MG PO BID for 7 Days, #14 TAB Prov:STEVAN VERAS MD 02/08/24 Dextromethorphan-Guaifenesin (Robitussin-Dm) 10 Ml Sr, 10 ML PO Q6HP PRN, #120 ML Prov:STEVAN VERAS MD 01/31/24 Hydrocortone (Hydrocortisone 2.5%) 1 Applic Ap, 1 APPLIC IA QHSP PRN, #10 APPLIC Prov:STEVAN VERAS MD 01/31/24 Ondansetron Odt 4MG Tab (ZOFRAN PO) 4 Mg Tb, 4 MG PO TID PRN for 3 Days, #9 TAB 0 Refills ODT TAB-DISSOLVE IN MOUTH, THEN SWALLOW Prov:MALLORY THOMAS MD 01/19/24 Miconazole Nitrate Vaginal (Monistat 7 Combination Pa 100 & 2 mg-% (9Gm)) 1 Kit Kit, 1 KIT VA DAILY, #1 KIT 0 Refills Follow instructions on package insert and take as prescribed. Prov:MALLORY THOMAS MD 01/19/24 Dicyclomine Hcl (BENTYL CAPSULE) 10 Mg Cp, 1 CAP PO TID, #90 CAP 11 Refills Prov:NICHO COELLO 01/05/24 Hydrocodone-Acetaminophen (Hydrocodone Bitartrate/AC 5-325 mg) 1 Tab Tab, 1 TAB PO Q6HP PRN, #30 TAB Prov:STEVAN VERAS MD 11/07/23 Loperamide Hcl (Imodium) 2 Mg Cp, 2 MG PO PRN PRN, #30 CAP Prov:STEVAN VERAS MD 11/07/23 Docusate Sodium (Colace) 100 Mg Cap, 1 CAP PO BID, #60 CAP Prov:STEVAN VERAS MD 10/28/23 Pantoprazole Sodium Sesquihydr (Protonix) 40 Mg Tab, 40 MG PO DAILY for 7 Days, #7 TAB Prov:CHANTAL STEWART MD 10/14/23 Reported Medications Guaifenesin-Codeine (Robitussin/Codeine) 10 Ml So, 5 ML PO Q6HR, #120 ML 01/31/24 Duloxetine Hcl (Cymbalta) 60 Mg Cap, 1 CAP PO DAILY, #90 CAP 3 Refills 01/30/24 Oxycodone Hcl (OxyCONTIN ER Tablet) 10 Mg Tb, 10 MG PO TIDP PRN for BREAKTHROUGH PAIN, TAB 10/14/23 Sennosides-Docusate Sodium (Senokot S) 1 Tab Tab, 1 TAB PO BID, #30 TAB 10/14/23 Tizanidine Hydrochloride (Tizanidine Hcl) 4 Mg Tab, 4 MG PO TID, TAB 10/14/23 Alprazolam (Xanax) 1 Mg Tab, 1 TAB PO DAILY PRN, #60 TAB 10/14/23 Gabapentin (Gabapentin) 600 Mg Tab, 1 TAB PO TID, #90 TAB 3 Refills 10/14/23 Lisinopril (Lisinopril) 40 Mg Tab, 1 TAB PO DAILY, #30 TAB 5 Refills 10/14/23 Information Source: Patient Mode of Arrival: Ambulatory Severity: Moderate Timing: Days Duration: Intermittent Prehospital treatment: None Past Medical History PAST MEDICAL HISTORY: HTN Surgical History: Cholecystectomy, Hernia Repair, Hysterectomy, Tubal Ligation CUSHION GUM APPLICATOR History: Other Family History Family History: Reviewed,noncontributory to illness Social History Smoker: Cigarettes Alcohol: Denies ETOH Use Drugs: Denies Drug Use Lives In: Home Constitutional: denies: chills, diaphoresis, fatigue, fever, malaise, sweats, weakness, others EENTM: denies: blurred vision, double vision, ear bleeding, ear discharge, ear drainage, ear pain, ear ringing, eye pain, eye redness, hearing loss, mouth pain, mouth swelling, nasal discharge, nose bleeding, nose congestion, nose pain, photophobia, tearing, throat pain, throat swelling, voice changes, others Respiratory: denies: cough, hemoptysis, orthopnea, SOB at rest, shortness of breath, SOB with excertion, stridor, wheezing, others Cardiovascular: denies: chest pain, dizzy spells, diaphoresis, Dyspnea on exertion, edema, irregular heart beat, left arm pain, lightheadedness, pal pitations, PND, syncope, others Gastrointestinal: reports: abdominal pain, nausea, vomiting; denies: abdomen distended, blood streaked bowels, constipated, diarrhea, dysphagia, difficulty swallowing, hematemesis, melena, poor appetite, poor fluid intake, rectal bleeding, rectal pain, others Genitourinary: denies: abnormal vagina bleeding, burning, dyspareunia, dysuria, flank pain, frequency, hematuria, incontinence, pain, , vagina discharge, urgency, others Neurological: denies: dizziness, fainting, headache, left sided numbness, left sided weakness, numbness, paresthesia, pre-existing deficit, right sided numbness, right sided weakness, seizure, speech problems, tingling, tremors, weakness, others Musculoskeletal: denies: back pain, gout, joint pain, joint swelling, muscle pain, muscle stiffness, neck pain, others Integumetry: denies: bruises, change in color, change in hair/nails, dryness, laceration, lesions, lumps, rash, wounds, others Allergic/Immunocompromised: denies: Difficulty Healing, Frequent Infections, Hives, Itching, others Hematologic/Lymphatic: denies: anemia, blood clots, easy bleeding, easy bruising, swollen glands, others Endocrine: denies: excessive hunger, excessive sweating, excessive thirst, excessive urination, flushing, intolerance to cold, intolerance to heat, unexplained weight gain, unexplained weight loss, others Psychiatric: denies: anxiety, bipolar disorder, depression, hopeless, panic disorder, schizophrenia, sleepless, suicidal, others All Other Systems: Reviewed and Negative Physical Exam General Appearance: No Apparent Distress, Normal HEENT: Normal ENT Inspection, Pharynx Normal, TMs Normal Neck: Full Range of Motion, Non-Tender, Normal, Normal Inspection Respiratory: Chest Non-Tender, Lungs Clear, No Accessory Muscle Use, No Respiratory Distress, Normal Breath Sounds Cardiovascular: No Edema, No JVD, No Murmur, No Gallop, Normal Peripheral Pulses, Regular Rate/Rhythm Breast Exam: Deferred Gastrointestinal: No Organomegaly, Non Tender, No Pulsatile Mass, Normal Bowel Sounds, Soft Genitalia: Deferred Pelvic: Deferred Rectal: Deferred Extremities: No calf tenderness, Normal capillary refill, Normal inspection, Normal range of motion, Non-tender, No pedal edema Musculoskeletal : Apperance: Normal Neurologic: Alert, lease examiner II-XII nml as Tested, No Motor Deficits, Normal Affect, Normal Mood, No Sensory Deficits Cerebellar Function: Normal Reflexes: Normal Skin: Dry, Normal Color, Warm Lymphatic: No Adenopathy Was a procedure done? Was a procedure done?: No Differential Dx Considerations may include: SBO, volvulus, constipation, neoplasm X-Ray, Labs, Meds, VS Vital Signs Date Time Temp Pulse Resp B/P (MAP) Pulse Ox O2 Delivery O2 Flow Rate FiO2 06/01/24 09:44 68 19 167/75 (105) 98 06/01/24 09:44 68 19 167/75 06/01/24 09:18 79 17 156/96 06/01/24 08:39 97.7 65 17 169/97 (121) 98 97.7 06/01/24 08:39 65 17 98 Room Air 06/01/24 08:30 65 17 97 Room Air* 0 21 06/01/24 07:42 98.9 76 14 150/95 (113) 98 Lab Test 06/01/24 09:00 06/01/24 07:48 Range/Units White Blood Count 8.6 4.4-10.8 10^3/uL Red Blood Count 4.93 4.0-5.20 10^6/uL Hemoglobin 14.8 12.2-16.2 g/dL Hematocrit 44.7 36.0-46.0 % Mean Corpuscular Volume 90.7 80.0-100.0 fL Mean Corpuscular Hemoglobin 30.1 28.0-32.0 pg Mean Corpuscular Hemoglobin Concent 33.2 32.0-36.0 g/dL Red Cell Distribution Width 15.8 H 11.8-14.3 % Platelet Count 364 140-450 10^3/uL Mean Platelet Volume 7.8 6.9-10.8 fL Neutrophils (%) (Auto) 51.6 37.0-80.0 % Lymphocytes (%) (Auto) 39.9 10.0-50.0 % Monocytes (%) (Auto) 5.7 0.0-12.0 % Eosinophils (%) (Auto) 2.3 0.0-7.0 % Basophils (%) (Auto) 0.5 0.0-2.0 % Neutrophils # (Auto) 4.4 1.6-8.6 10 ^3/uL Lymphocytes # (Auto) 3.4 0.4-5.4 10 ^3/uL Monocytes # (Auto) 0.5 0-1.3 10 ^3/uL Eosinophils # (Auto) 0.2 0-0.8 10 ^3/uL Basophils # (Auto) 0 0-0.2 10 ^3/uL Nucleated Red Blood Cells 0.0 % Sodium Level 141 136-145 mmol/L Potassium Level 4.5 3.5-5.1 mmol/L Chloride Level 111 H 98-107 mmol/L Carbon Dioxide Level 23 20-31 mmol/L Anion Gap 7 5-15 Blood Urea Nitrogen 11 9-23 mg/dL Creatinine 0.65 0.550-1.02 mg/dL Glomerular Filtration Rate Calc 108 >90 mL/min BUN/Creatinine Ratio 16.9 10.0-20.0 Serum Glucose 96 74-106 mg/dL Calcium Level 10.0 8.7-10.4 mg/dL Urine Color Pending Urine Clarity Pending Urine pH Pending Urine Specific [place] Pending Urine Protein Pending Urine Ketones Pending Urine Blood Pending Urine Nitrite Pending Urine Bilirubin Pending Urine Urobilinogen Pending Urine Leukocyte Esterase Pending Urine RBC Pending Urine WBC Pending Urine Squamous Epithelial Cells Pending Urine Bacteria Pending Urine Glucose Pending Current Medications Medications (Trade) Dose Ordered Sig/Pedro Route Start Time Stop Time Status Last Admin Morphine Sulfate 4 mg ONCE ONCE IV 06/01/24 09:00 06/01/24 09:01 DC 06/01/24 09:18 Sodium Chloride 1,000 ml @ 1,000 mls/hr Q1H ONCE IV 06/01/24 09:00 06/01/24 09:59 DC 06/01/24 09:10 Ondansetron HCl (Zofran) 4 mg ONCE ONCE IV 06/01/24 09:00 06/01/24 09:01 DC 06/01/24 09:18 Time of 1ST Reevaluation: 09:15 Reevaluation 1ST: Unchanged Patient Education/Counseling: Diagnosis, Treatment, Prognosis Family Education/Counseling: No Family Present Departure 1 Departure Time of Disposition: 11:14 (Patient presented with abdominal pain that was concerning for possible appendicits, gastritis, cholecystitis, colitis, gastroenteritis, sbo, or orther possible surgical emergency. Data: 1. I ordered and reviewed the result of at least 3 labs including a CBC, BMP, and Urinalysis. 2. I independently interpreted the following tests: CT Abdoment and Pelvis is concerning for post surgical fluid collection .Risk:This patient has a high risk of morbidity due to further diagnostic testing or treatment and may suffer from an acute abdominal process disorder. Workup reveals CT scan with benign abdomen the patient is still having intractable abdominal pain and patient should be admitted for further workup. and possible expert consultation. ) Impression: Primary Impression: Intractable abdominal pain Additional Impression: Projectile vomiting with nausea Disposition: ADMITTED INPATIENT Admit to: Med Surg Condition: Serious Critical Care Note Critical Care Time?: Yes Critical care comment: Intractable abdominal pain Authorized and Performed by: Adamaris Richards MD Total critical care time: Approximately 31 minutes Due to a high probability of clinically significant, life threatening deterioration, the patient required my highest level of preparedness to intervene emergently and I personally spent this critical care time directly and personally managing the patient. This critical care time included obtaining a history; examining the patient; pulse oximetry; ordering and review of studies; arranging urgent treatment with development of a management plan; evaluation of patient's response to treatment; frequent reassessment; and, discussions with other providers. This critical care time was performed to assess and manage the high probability of imminent, life-threatening deterioration that could result in multi-organ failure. It was exclusive of separately billable procedures and treating other patients and teaching time. Please see my other sections and the rest of the note for further information on patient assessment and treatment. Stability Stability form required: No I personally scribed for ADAMARIS RICHARDS MD ([email or web address]) on 06/01/24 at 09:27. Electronically submitted by Michael Cardoso ([email or web address]). ADAMARIS RICHARDS MD Jun 01, 2024 09:27
[2024-06-01] MEDS: IOHEXOL 300 MG/ML 100ML BOTTLE IJ ONE (09:42)
--- NOTE | 2024-06-01 10:05 | DVH ---
Exam: CT CT AB PEL WITH IV CON ONLY History: rlq pain, bulge, hx of multiple surgieries TECHNIQUE: A digital barrel finisher image was obtained. During the uneventful, intravenous administration of c ontrast material, multislice data acquisition was obtained through the abdomen and pelvis. The data s et was subsequently reconstructed into axial images. Images were reviewed on a work station using a c ombination of axial and multiplanar using a variety of window levels and settings. 100 cc of Omnipaqu e 300 contrast was injected intravenously. All CT scans at this medical facility are performed using dose modulation techniques as appropriate t o a performed exam including the following:Automated exposure control was utilized; adjustment of the MA and/or KV according to patient size; and use of iterative reconstruction technique. Radiation Dose Information: CT Dose: CTDI volume is 10 mGy. Dose-length product is 545 mGy*cm Comparison: CT CT AB PEL WITH IV CON ONLY on DOS: 05/11/24, CT CT ABD PELVIS W CON-ORAL IV on DOS: 02/06/24 FINDINGS: Again seen are postsurgical changes in the right lower quadrant abdominal wall. There are bowel anast omotic sutures seen in the right lower quadrant abdomen and in the rectosigmoid colon. The small and large bowel loops demonstrate normal caliber. Air intermixed with stool is seen in the colon. There are scattered diverticula in the distal colon without evidence of acute diverticulitis. There is stable fatty infiltration of the liver. There are scattered hepatic. The gallbladder is rafael gically absent. The pancreas, kidneys, adrenal glands, and spleen appear within normal limits. There is no evidence of abdominal lymphadenopathy. There is no free fluid or free air. The stomach grossly appears unremarkable. The small and large bowel loops demonstrate normal caliber. The abdominal aorta and IVC appear within normal limits. The bladder appears within normal limits the degree of distention. Uterus is surgically absent. There is no evidence of a pelvic mass or lymphadenopathy. There is no free fluid collection. Lung bases are clear. There is no acute osseous abnormality. IMPRESSION: 1. There is no acute process in the abdomen and pelvis.. 2. Redemonstrated are postsurgical changes in the right lower quadrant abdominal wall. There are post surgical changes in the bowel with anastomotic sutures in the right lower quadrant abdomen and in the rectosigmoid colon. There is no evidence of bowel obstruction. 3. Scattered diverticula in the distal colon. 4. Hepatic steatosis. HS:Y
[2024-06-01 10:56] LABS: Urine Bacteria None Seen /hpf (None Seen)
[2024-06-01 11:16] LABS: Urine Blood Negative /uL (Negative); Urine Clarity Clear (Clear); Urine Color Colorless (Yellow); Urine Protein, UAD Negative (Negative); Urine Specific Gravity 1.011 (1.001-1.035); Urine Urobilinogen Normal (Negative); Urine WBC <1 /hpf (0 - 5); Urine pH 5.5 (5.0-9.0)
[2024-06-01] MEDS ORDERED: MAALOX PLUS or MAALOX 30 ML PO PRN (13:15)
[2024-06-01] MEDS ORDERED: ACETAMINOPHEN 325 MG TAB PO PRN (13:15)
[2024-06-01] MEDS ORDERED: LORazepam 0.5 MG TAB PO PRN (13:15)
[2024-06-01] MEDS ORDERED: DOCUSATE SOD 100 MG CAP PO PRN (13:15)
--- NOTE | 2024-06-01 13:26 | DVHHP2 ---
History of Present Illness Reason for Visit: Abdominal pain History of Present Illness 48 yo patient with a history of HTN has a complaint of intractable abdominal pain patient has a chronic history of abdominal pain stating that most of her pain is associated with multiple surgies and being told that she needs to see a specialist in [place] according to patient. Patient describes that she was told she has severe bowel issues an her bowels do not function properly and she has severe pain because of this patient was recently evaluated and discharged from another hospital for similar complaints and states no acute improvement patient recommended for admission for intractable pain Cardiovascular: HTN Review of Systems Constitutional: No: Fever, Chills, Sweats, Weakness, Malaise, Other Eyes: No: Pain, Vision change, Conjunctivae inflammation, Eyelid inflammation, Other, Redness ENT: No: Ear pain, Ear discharge, Nose pain, Nose discharge, Nose congestion, Mouth pain, Mouth swelling, Throat pain, Throat swelling, Other Respiratory: No: Cough, Dry, Shortness of breath, SOB with excertion, Wheezing, Hemoptysis, Pleuritic Pain, Sputum, Wheezing, Other Cardiovascular: No: Chest Pain, Palpitations, Orthopnea, Paroxysmal Noc. Dyspnea, Edema, Lt Headedness, Other Gastrointestinal: Abdominal Pain; No: Nausea, Vomiting, Diarrhea, Constipation, Melena, Hematochezia, Other Genitourinary: No Dysuria, No Frequency, No Incontinence, No Hematuria, No Retention, No Other Musculoskeletal: No: other, neck pain, shoulder pain, arm pain, back pain, hand pain, leg pain, foot pain Skin: No: Rash, Lesions, Jaundice, Bruising, Other Neurological: No: Weakness, Numbness, Incoordination, Change in speech, Confusion, Seizures, Other Allergies: Coded Allergies: NO KNOWN ALLERGIES (Unverified , 05/10/14) Exam Vital Signs Vital Signs Date Time Temp Pulse Resp B/P (MAP) Pulse Ox O2 Delivery O2 Flow Rate FiO2 06/01/24 12:15 98.3 71 18 159/96 (117) 99 98.3 06/01/24 08:39 Room Air 06/01/24 08:30 0 21 General Appearance: Alert, Oriented X3, moderate distress HEENT: Atraumatic, PERRLA Respiratory: Clear to auscultation, Normal air movement Cardiovascular: Regular rate, Normal S1, Normal S2 Abdominal: Normal bowel sounds, Soft, No tenderness Extremities: No clubbing, No cyanosis, No edema Skin: No rashes, No breakdown Neuro: Normal gait, Normal speech Psych/Mental Status: Mood NL Labs/Xrays Labs Test 06/01/24 09:00 06/01/24 07:48 Range/Units White Blood Count 8.6 4.4-10.8 10^3/uL Red Blood Count 4.93 4.0-5.20 10^6/uL Hemoglobin 14.8 12.2-16.2 g/dL Hematocrit 44.7 36.0-46.0 % Mean Corpuscular Volume 90.7 80.0-100.0 fL Mean Corpuscular Hemoglobin 30.1 28.0-32.0 pg Mean Corpuscular Hemoglobin Concent 33.2 32.0-36.0 g/dL Red Cell Distribution Width 15.8 H 11.8-14.3 % Platelet Count 364 140-450 10^3/uL Mean Platelet Volume 7.8 6.9-10.8 fL Neutrophils (%) (Auto) 51.6 37.0-80.0 % Lymphocytes (%) (Auto) 39.9 10.0-50.0 % Monocytes (%) (Auto) 5.7 0.0-12.0 % Eosinophils (%) (Auto) 2.3 0.0-7.0 % Basophils (%) (Auto) 0.5 0.0-2.0 % Neutrophils # (Auto) 4.4 1.6-8.6 10 ^3/uL Lymphocytes # (Auto) 3.4 0.4-5.4 10 ^3/uL Monocytes # (Auto) 0.5 0-1.3 10 ^3/uL Eosinophils # (Auto) 0.2 0-0.8 10 ^3/uL Basophils # (Auto) 0 0-0.2 10 ^3/uL Nucleated Red Blood Cells 0.0 % Sodium Level 141 136-145 mmol/L Potassium Level 4.5 3.5-5.1 mmol/L Chloride Level 111 H 98-107 mmol/L Carbon Dioxide Level 23 20-31 mmol/L Anion Gap 7 5-15 Blood Urea Nitrogen 11 9-23 mg/dL Creatinine 0.65 0.550-1.02 mg/dL Glomerular Filtration Rate Calc 108 >90 mL/min BUN/Creatinine Ratio 16.9 10.0-20.0 Serum Glucose 96 74-106 mg/dL Calcium Level 10.0 8.7-10.4 mg/dL Urine Color Colorless Yellow Urine Clarity Clear Clear Urine pH 5.5 5.0-9.0 Urine Specific [place] 1.011 1.001-1.035 Urine Protein Negative Negative Urine Ketones Negative Negative Urine Blood Negative Negative /uL Urine Nitrite Negative Negative Urine Bilirubin Negative Negative Urine Urobilinogen Normal Negative mg/dL Urine Leukocyte Esterase Negative Negative /uL Urine RBC 1 0 - 4 /hpf Urine WBC <1 0 - 5 /hpf Urine Squamous Epithelial Cells Few <5 /hpf Urine Bacteria None seen None Seen /hpf Urine Glucose Normal Normal mg/dL Assessment/Plan Assessment/Plan Admit med/Surge Intractable abdominal pain history multiple surgies ct scan only shows post surgical changes no acute surgical findings no acute noted infections at this time patient describes 04/22 intractable pain prn meds for pain c/w home meds stated specialty follow up outpatient unverified Depression/Anxiety c/w home medications Plan discussed with: Patient My Orders Orders - ALESSANDRO JOSEPH MD Procedure Category Date Status Time Admit ADMIT 06/01/24 Transmitted 13:07 Code Status CODE 06/01/24 Transmitted 13:07 Vital Signs [facility] 06/01/24 In Process 13:07 Review Orders With [facility] 06/01/24 In Process Adm. 13:07 Regular Diet DIET 06/01/24 Transmitted Lunch Sodium Chloride 0.9% [facility] 06/01/24 Logged 13:15 Lorazepam Tablet [facility] 06/01/24 Logged (Ativan Tablet) 13:15 Alum & Mag [facility] 06/01/24 Logged Hydrox-Simethicone 13:15 Docusate Sodium [facility] 06/01/24 Logged Capsule (Colace 13:15 Acetaminophen Tablet [facility] 06/01/24 Logged (Tylenol Tablet) 13:15 Temazepam (Restoril) [facility] 06/01/24 Logged 13:15 Notify Of Changes [facility] 06/01/24 In Process From Base 13:07 Advance Directive [facility] 06/01/24 In Process 13:07 Basic Metabolic Panel LAB 06/02/24 Verified 04:00 Complete Blood Count LAB 06/02/24 Verified 04:00 Patient Condition ORDERS 06/01/24 Transmitted 13:07 Allergies [facility] 06/01/24 In Process 13:07 Hydrocodone-Acet [facility] 06/01/24 Logged 5/325mg Tab ([place] 13:15 Ondansetron Hcl [facility] 06/01/24 Logged (Zofran) 13:15 Morphine Sulfate [facility] 06/01/24 Logged Injection 13:15 Notify Md Of Changes JUAN LUIS 06/01/24 In Process From Base 13:07 Oxygen By Nasal RT 06/01/24 Transmitted Cannula 13:07 Pantoprazole Tablet [facility] 06/02/24 Logged (Protonix Tablet) 10:00 (Nf) Alprazolam [facility] 06/01/24 Logged (Xanax) 13:15 (Nf) Duloxetine Hcl [facility] 06/02/24 Logged (Cymbalta) 10:00 (Nf) Gabapentin [facility] 06/01/24 Logged 14:00 Problem List: (1) Abdominal pain (2) Dehydration (3) Intractable abdominal pain Date of Service: Jun 01, 2024 Billing Provider: ALESSANDRO JOSEPH MD Common Visit Codes: [id number] INP/OBS CARE (HIGH) ALESSANDRO JOSEPH MD Jun 01, 2024 13:26
[2024-06-01] MEDS: SODIUM CHLORIDE 0.9% 1,000 ML IV SCH (14:01)
[2024-06-01] MEDS: GABAPENTIN 300 MG CAP PO SCH (14:24)
[2024-06-01] MEDS: ONDANSETRON HCL 4 MG/2 ML VIAL IV PRN (14:31)
[2024-06-01] MEDS: MORPHINE SULFATE INJ 2 MG/ml SYRG IV PRN (14:32)
[2024-06-01 14:50] VITALS: PULSE 64; RESP 18; O2SAT 100
[2024-06-01] MEDS: HYDROMORPHONE HCL 1 MG/ML INJ IV ONE (15:59)
[2024-06-01] MEDS: ALPRAZolam 0.5 MG TAB PO PRN (23:29)
[2024-06-02] MEDS: TEMAZEPAM 15 MG CAP PO PRN (02:39)
[2024-06-02] MEDS: HYDROcodone-ACET 5/325MG TAB PO PRN (02:40)
[2024-06-02 08:00] VITALS: PULSE 54; RESP 17; O2SAT 98
--- NOTE | 2024-06-02 08:05 | DVH ---
ULTRASOUND ABDOMEN LIMITED INDICATION: r/o cholelithiasis TECHNIQUE: Multiple real-time sonographic images of the abdomen were obtained. COMPARISON: US ABDOMEN LIMITED on DOS: 11/03/23 FINDINGS: The visualized liver parenchyma appears homogenous . The liver measures 13.5 cm. There are multip le scattered hepatic cysts, the largest in the right hepatic lobe measuring 2.7 x 2.2 cm. No discrete solid hepatic lesion or intrahepatic biliary ductal dilatation is identified. The gallbladder is surgically absent. The common biliary duct is not dilated. The right kidney measures 11.1 cm length. No sonographic evidence of nephrolithiasis or hydronephro sis. Visualized portions of the pancreas appears within normal limits. IMPRESSION: 1. Multiple scattered hepatic cysts measuring up to 2.7 cm. 2. Cholecystectomy. HS:Y
[2024-06-02 08:24] LABS: Basophils # (auto) 0.1 10 ^3/uL (0-0.2); Basophils % (auto) 0.8 % (0.0-2.0); Eosinophils # (auto) 0.2 10 ^3/uL (0-0.8); Eosinophils % (auto) 2.7 % (0.0-7.0); Hematocrit 38.7 % (36.0-46.0); Hemoglobin 12.9 g/dL (12.2-16.2); Lymphocytes # (auto) 3.2 10 ^3/uL (0.4-5.4); Mean Corpuscular Hemoglobin 30.2 pg (28.0-32.0); Mean Corpuscular Hgb Conc. 33.3 g/dL (32.0-36.0); Mean Corpuscular Volume 90.8 fL (80.0-100.0); Monocytes # (auto) 0.4 10 ^3/uL (0-1.3); Monocytes % (auto) 6.6 % (0.0-12.0); Neutrophils # (auto) 2.7 10 ^3/uL (1.6-8.6); Neutrophils % (auto) 40.9 % (37.0-80.0); Nucleated Red Blood Cells % 0.1 %; Platelet Count (auto) 291 10^3/uL (140-450); Red Blood Cells 4.27 10^6/uL (4.0-5.20); Red Cell Distribution Width 15.6 % (11.8-14.3); White Blood Cell 6.6 10^3/uL (4.4-10.8)
[2024-06-02 08:38] LABS: Alanine Aminotransferase 32 U/L (7-40); Alkaline Phosphatase 92 U/L (46-116); Anion Gap 6 (5-15); Aspartate Aminotransferase 26 U/L (13-40); BUN/Creatinine Ratio 12.3 (10.0-20.0); Bilirubin, Total 0.5 mg/dL (0.2-1.0); Blood Urea Nitrogen 7 mg/dL (9-23); Calcium 9.2 mg/dL (8.7-10.4); Carbon Dioxide 24 mmol/L (20-31); Chloride 112 mmol/L (98-107); Glucose 97 mg/dL (74-106); Potassium 4.1 mmol/L (3.5-5.1); Sodium 142 mmol/L (136-145); Total Protein 6.4 g/dL (5.7-8.2)
[2024-06-02 09:15] VITALS: BP 158/80; PULSE 54; RESP 17; TEMP 98; O2SAT 98
[2024-06-02] MEDS: PANTOPRAZOLE 40 MG TAB PO SCH (11:10)
[2024-06-02] MEDS: DULoxetine HCL 30 MG CAP PO SCH (11:10)
[2024-06-02 12:00] VITALS: O2SAT 98
[2024-06-02 13:08] VITALS: BP 177/95; PULSE 60; RESP 16
--- NOTE | 2024-06-02 13:35 | DVHINCON2 ---
Date of service: Jun 02, 2024 Family History: Diabetes mellitus G8 MOTHER G8 FATHER FH: cancer Hypertension G8 MOTHER G8 FATHER Allergies: Coded Allergies: NO KNOWN ALLERGIES (Unverified , 05/10/14) Home Meds Active Scripts Amoxicillin & Pot Clavulanate (AUGMENTIN TABLET) 875 Mg Tb, 875 MG PO BID for 7 Days, #14 TAB Prov:STEVAN VERAS MD 02/08/24 Dextromethorphan-Guaifenesin (Robitussin-Dm) 10 Ml Sr, 10 ML PO Q6HP PRN, #120 ML Prov:STEVAN VERAS MD 01/31/24 Hydrocortone (Hydrocortisone 2.5%) 1 Applic Ap, 1 APPLIC SC QHSP PRN, #10 APPLIC Prov:STEVAN VERAS MD 01/31/24 Ondansetron Odt 4MG Tab (ZOFRAN PO) 4 Mg Tb, 4 MG PO TID PRN for 3 Days, #9 TAB 0 Refills ODT TAB-DISSOLVE IN MOUTH, THEN SWALLOW Prov:MALLORY THOMAS MD 01/19/24 Miconazole Nitrate Vaginal (Monistat 7 Combination Pa 100 & 2 mg-% (9Gm)) 1 Kit Kit, 1 KIT VA DAILY, #1 KIT 0 Refills Follow instructions on package insert and take as prescribed. Prov:MALLORY THOMAS MD 01/19/24 Dicyclomine Hcl (BENTYL CAPSULE) 10 Mg Cp, 1 CAP PO TID, #90 CAP 11 Refills Prov:NICHO COELLO 01/05/24 Hydrocodone-Acetaminophen (Hydrocodone Bitartrate/AC 5-325 mg) 1 Tab Tab, 1 TAB PO Q6HP PRN, #30 TAB Prov:STEVAN VERAS MD 11/07/23 Loperamide Hcl (Imodium) 2 Mg Cp, 2 MG PO PRN PRN, #30 CAP Prov:STEVAN VERAS MD 11/07/23 Docusate Sodium (Colace) 100 Mg Cap, 1 CAP PO BID, #60 CAP Prov:STEVAN VERAS MD 10/28/23 Pantoprazole Sodium Sesquihydr (Protonix) 40 Mg Tab, 40 MG PO DAILY for 7 Days, #7 TAB Prov:CHANTAL STEWART MD 10/14/23 Reported Medications Guaifenesin-Codeine (Robitussin/Codeine) 10 Ml So, 5 ML PO Q6HR, #120 ML 01/31/24 Duloxetine Hcl (Cymbalta) 60 Mg Cap, 1 CAP PO DAILY, #90 CAP 3 Refills 01/30/24 Oxycodone Hcl (OxyCONTIN ER Tablet) 10 Mg Tb, 10 MG PO TIDP PRN for BREAKTHROUGH PAIN, TAB 10/14/23 Sennosides-Docusate Sodium (Senokot S) 1 Tab Tab, 1 TAB PO BID, #30 TAB 10/14/23 Tizanidine Hydrochloride (Tizanidine Hcl) 4 Mg Tab, 4 MG PO TID, TAB 10/14/23 Alprazolam (Xanax) 1 Mg Tab, 1 TAB PO DAILY PRN, #60 TAB 10/14/23 Gabapentin (Gabapentin) 600 Mg Tab, 1 TAB PO TID, #90 TAB 3 Refills 10/14/23 Lisinopril (Lisinopril) 40 Mg Tab, 1 TAB PO DAILY, #30 TAB 5 Refills 10/14/23 Current Medications Current Medications Medications (Trade) Dose Ordered Sig/Pedro Route PRN Reason Start Time Stop Time Status Last Admin Pantoprazole Sodium (Protonix Tablet) 40 mg DAILY PO 06/02/24 10:00 06/02/24 11:23 Alprazolam (Xanax Tablet) 1 mg DAILY PRN PO ANXIETY 06/01/24 13:45 06/01/24 23:29 Duloxetine HCl (Cymbalta Capsule) 60 mg DAILY PO 06/02/24 10:00 06/02/24 11:23 Gabapentin (Neurontin Capsule) 600 mg TID PO 06/01/24 14:00 06/02/24 06:03 Vital Signs Vital Signs Date Time Temp Pulse Resp B/P (MAP) Pulse Ox O2 Delivery O2 Flow Rate FiO2 06/02/24 13:08 60 16 177/95 06/02/24 09:15 98.0 98 98.0 06/02/24 08:00 Room Air* 0 21 Labs/Diagnostic Data Labs Test 06/02/24 08:04 06/01/24 07:48 Range/Units White Blood Count 6.6 4.4-10.8 10^3/uL Red Blood Count 4.27 4.0-5.20 10^6/uL Hemoglobin 12.9 12.2-16.2 g/dL Hematocrit 38.7 # 36.0-46.0 % Mean Corpuscular Volume 90.8 80.0-100.0 fL Mean Corpuscular Hemoglobin 30.2 28.0-32.0 pg Mean Corpuscular Hemoglobin Concent 33.3 32.0-36.0 g/dL Red Cell Distribution Width 15.6 H 11.8-14.3 % Platelet Count 291 140-450 10^3/uL Mean Platelet Volume 7.7 6.9-10.8 fL Neutrophils (%) (Auto) 40.9 37.0-80.0 % Lymphocytes (%) (Auto) 49.0 10.0-50.0 % Monocytes (%) (Auto) 6.6 0.0-12.0 % Eosinophils (%) (Auto) 2.7 0.0-7.0 % Basophils (%) (Auto) 0.8 0.0-2.0 % Neutrophils # (Auto) 2.7 1.6-8.6 10 ^3/uL Lymphocytes # (Auto) 3.2 0.4-5.4 10 ^3/uL Monocytes # (Auto) 0.4 0-1.3 10 ^3/uL Eosinophils # (Auto) 0.2 0-0.8 10 ^3/uL Basophils # (Auto) 0.1 0-0.2 10 ^3/uL Nucleated Red Blood Cells 0.1 % Sodium Level 142 136-145 mmol/L Potassium Level 4.1 3.5-5.1 mmol/L Chloride Level 112 H 98-107 mmol/L Carbon Dioxide Level 24 20-31 mmol/L Anion Gap 6 5-15 Blood Urea Nitrogen 7 L 9-23 mg/dL Creatinine 0.57 0.550-1.02 mg/dL Glomerular Filtration Rate Calc 111 >90 mL/min BUN/Creatinine Ratio 12.3 10.0-20.0 Serum Glucose 97 74-106 mg/dL Calcium Level 9.2 8.7-10.4 mg/dL Total Bilirubin 0.5 0.2-1.0 mg/dL Aspartate Amino Transferase (AST) 26 13-40 U/L Alanine Aminotransferase (ALT) 32 7-40 U/L Alkaline Phosphatase 92 46-116 U/L Total Protein 6.4 5.7-8.2 g/dL Albumin 4.0 3.2-4.8 g/dL Urine Color Colorless Yellow Urine Clarity Clear Clear Urine pH 5.5 5.0-9.0 Urine Specific [place] 1.011 1.001-1.035 Urine Protein Negative Negative Urine Ketones Negative Negative Urine Blood Negative Negative /uL Urine Nitrite Negative Negative Urine Bilirubin Negative Negative Urine Urobilinogen Normal Negative mg/dL Urine Leukocyte Esterase Negative Negative /uL Urine RBC 1 0 - 4 /hpf Urine WBC <1 0 - 5 /hpf Urine Squamous Epithelial Cells Few <5 /hpf Urine Bacteria None seen None Seen /hpf Urine Glucose Normal Normal mg/dL Assessment abdominal pain, GB surgically absent, will request GI consult prior to surgical consult, will follow Plan discussed with: Other MARIE SOTO MD Jun 02, 2024 13:35
[2024-06-02] MEDS ORDERED: TRAM-626 PO (13:44)
[2024-06-02] MEDS ORDERED: ALPR0.25 PO (13:44)
[2024-06-02] MEDS ORDERED: ALPRAZolam 0.5 MG TAB PO PRN (13:45)
--- NOTE | 2024-06-02 15:40 | DVHDS2 ---
Discharge Summary Date of Admission Jun 01, 2024 at 13:07 Date of Discharge: Jun 02, 2024 Labs/Diagnostic Data: Laboratory Results Test 06/02/24 08:04 06/01/24 07:48 White Blood Count 6.6 10^3/uL (4.4-10.8) Red Blood Count 4.27 10^6/uL (4.0-5.20) Hemoglobin 12.9 g/dL (12.2-16.2) Hematocrit 38.7 % (36.0-46.0) Mean Corpuscular Volume 90.8 fL (80.0-100.0) Mean Corpuscular Hemoglobin 30.2 pg (28.0-32.0) Mean Corpuscular Hemoglobin Concent 33.3 g/dL (32.0-36.0) Red Cell Distribution Width 15.6 % (11.8-14.3) Platelet Count 291 10^3/uL (140-450) Mean Platelet Volume 7.7 fL (6.9-10.8) Neutrophils (%) (Auto) 40.9 % (37.0-80.0) Lymphocytes (%) (Auto) 49.0 % (10.0-50.0) Monocytes (%) (Auto) 6.6 % (0.0-12.0) Eosinophils (%) (Auto) 2.7 % (0.0-7.0) Basophils (%) (Auto) 0.8 % (0.0-2.0) Neutrophils # (Auto) 2.7 10 ^3/uL (1.6-8.6) Lymphocytes # (Auto) 3.2 10 ^3/uL (0.4-5.4) Monocytes # (Auto) 0.4 10 ^3/uL (0-1.3) Eosinophils # (Auto) 0.2 10 ^3/uL (0-0.8) Basophils # (Auto) 0.1 10 ^3/uL (0-0.2) Nucleated Red Blood Cells 0.1 % Sodium Level 142 mmol/L (136-145) Potassium Level 4.1 mmol/L (3.5-5.1) Chloride Level 112 mmol/L (98-107) Carbon Dioxide Level 24 mmol/L (20-31) Anion Gap 6 (5-15) Blood Urea Nitrogen 7 mg/dL (9-23) Creatinine 0.57 mg/dL (0.550-1.02) Glomerular Filtration Rate Calc 111 mL/min (>90) BUN/Creatinine Ratio 12.3 (10.0-20.0) Serum Glucose 97 mg/dL (74-106) Calcium Level 9.2 mg/dL (8.7-10.4) Total Bilirubin 0.5 mg/dL (0.2-1.0) Aspartate Amino Transferase (AST) 26 U/L (13-40) Alanine Aminotransferase (ALT) 32 U/L (7-40) Alkaline Phosphatase 92 U/L (46-116) Total Protein 6.4 g/dL (5.7-8.2) Albumin 4.0 g/dL (3.2-4.8) Urine Color Colorless (Yellow) Urine Clarity Clear (Clear) Urine pH 5.5 (5.0-9.0) Urine Specific [place] 1.011 (1.001-1.035) Urine Protein Negative (Negative) Urine Ketones Negative (Negative) Urine Blood Negative /uL (Negative) Urine Nitrite Negative (Negative) Urine Bilirubin Negative (Negative) Urine Urobilinogen Normal mg/dL (Negative) Urine Leukocyte Esterase Negative /uL (Negative) Urine RBC 1 /hpf (0 - 4) Urine WBC <1 /hpf (0 - 5) Urine Squamous Epithelial Cells Few /hpf (<5) Urine Bacteria None seen /hpf (None Seen) Urine Glucose Normal mg/dL (Normal) Other Laboratory Tests 06/02/24 08:04 Brief Hx & Hospital Course: 48-year-old female who had history of multiple abdominal surgeries before last time at [facility] for drainage of a fluid collection according to her comes with a chief complaint of right lower quadrant abdominal pain Evaluation here with a CT scan of the abdomen was negative for any fluid collection and ultrasound also of the abdomen was negative The patient is status post cholecystectomy She has multiple scattered hepatic cysts The CT scan showed expected postsurgical changes in the right lower quadrant She also is complaining of back pain She has a L4 L5 and L5-S1 disc bulging on a CT scan that she had previously She is waiting a referral to go to spinal surgery as an outpatient for that evaluation The patient was observed overnight and now she has very minimal pain in the lower right lower quadrant She is hungry she would like to eat The patient is stable for discharge Follow up with her primary care physician and with spinal surgery as scheduled as an outpatient Final diagnoses: Abdominal pain, unspecified Chronic low back pain History of hypertension Condition at Discharge: Stable Final Diagnosis/Problems List ABDOMINAL PAIN, unspecified Chronic low back pain Discharge Disposition: Home SNF Discharge Will this Physician continue t: No Discharge Instruct/Medications Diet: Regular Activity: No Restrictions, As Tolerated Follow Up/Referral: PCP VIN Medications: Tramadol and Xanax prn Discharge Statement: "Patient was advised to return to the ER or call 911 if any headaches, dizziness, shortness of breath, chest pain, abdominal pain, bleeding, fevers, or worsening of medical condition. Patient was counseled about treatment plan, medications, possible side effects, patientverbalized understanding. All questions were answered to the best of my ability. This discharge took greater then 30 minutes in planning, reviewing documentation, counseling the patient, and discussing with other team members." ASSESSMENT ASSESSMENT Assessment ABDOMINAL PAIN DEHYDRATION Date of Service: Jun 02, 2024 Billing Provider: STEVAN VERAS MD Common Visit Codes: NOT BILLABLE STEVAN VERAS MD Jun 02, 2024 15:40
== END 2024-06-02 15:31 | disposition home or self-care (01) | DRG 392 ==
LOC: ER 07:28 → OVERFLOW 13:07
PROVIDERS: ADMIT Hospitalist; ATTEND Internal Medicine Geriatric Medicine
DX: R10.9 Unspecified abdominal pain (principal); I10 Essential (primary) hypertension; F17.210 Nicotine dependence, cigarettes, uncomplicated; F32.A Depression, unspecified; K76.89 Other specified diseases of liver; F41.9 Anxiety disorder, unspecified; Z90.49 Acquired absence of other specified parts of digestive tract; Z90.710 Acquired absence of both cervix and uterus; Z83.3 Family history of diabetes mellitus; Z82.49 Family history of ischemic heart disease and other diseases of the circulatory system
CPT/HCPCS: 36415; 74177; 76705; 80048; 80053; 81001; 85025; 96361; 96374; 96375; 96376; G0378; J2405

== ENCOUNTER 2024-06-22 17:36 | Emergency (ER) | payer OTHER, MEDICAID ==
[~2024-06-22] VITALS: Ht 149.9 cm; Wt 72.0 kg
[~2024-06-22 17:36] MED LIST changes: +ALPR0.25 PO; +TRAM-626 PO
--- NOTE | 2024-06-22 18:48 | ED.PDOC ---
GI ASSESSMENT HPI Comments 49 year old female presents to the ED with chief complaint of abdominal pain. Patient reports that she has been experiencing RUQ abdominal pain that radiates to her back on the right side with associated constipation for the past 3 days. Patient relays that she had [place] [facility] for further evaluation of her bowels, however, she has been constipated since then and has not been able to pass it. Patient denies any N/V/D, dizziness, fever, chills, chest pain, or dysuria. Chief Complaint: Abdominal Pain Time Seen by MD: 18:32 Primary Care Provider: CHARLES Reviewed Notes: Nurses Notes, Medications, Allergies Allergies: Coded Allergies: NO KNOWN ALLERGIES (Unverified , 05/10/14) Home Meds Active Scripts Alprazolam (Xanax) 0.25 Mg Tb, 1 TAB PO BID PRN, #15 TAB Prov:STEVAN VERAS MD 06/02/24 Tramadol HCl (Tramadol HCl) 50 Mg Tab, 50 MG PO Q6HP PRN, #15 TAB Prov:STEVAN VERAS MD 06/02/24 Amoxicillin & Pot Clavulanate (AUGMENTIN TABLET) 875 Mg Tb, 875 MG PO BID for 7 Days, #14 TAB Prov:STEVAN VERAS MD 02/08/24 Dextromethorphan-Guaifenesin (Robitussin-Dm) 10 Ml Sr, 10 ML PO Q6HP PRN, #120 ML Prov:STEVAN VERAS MD 01/31/24 Hydrocortone (Hydrocortisone 2.5%) 1 Applic Ap, 1 APPLIC ID QHSP PRN, #10 APPLIC Prov:STEVAN VERAS MD 01/31/24 Ondansetron Odt 4MG Tab (ZOFRAN PO) 4 Mg Tb, 4 MG PO TID PRN for 3 Days, #9 TAB 0 Refills ODT TAB-DISSOLVE IN MOUTH, THEN SWALLOW Prov:MALLORY THOMAS MD 01/19/24 Miconazole Nitrate Vaginal (Monistat 7 Combination Pa 100 & 2 mg-% (9Gm)) 1 Kit Kit, 1 KIT VA DAILY, #1 KIT 0 Refills Follow instructions on package insert and take as prescribed. Prov:MALLORY THOMAS MD 01/19/24 Dicyclomine Hcl (BENTYL CAPSULE) 10 Mg Cp, 1 CAP PO TID, #90 CAP 11 Refills Prov:NICHO COELLO 01/05/24 Hydrocodone-Acetaminophen (Hydrocodone Bitartrate/AC 5-325 mg) 1 Tab Tab, 1 TAB PO Q6HP PRN, #30 TAB Prov:STEVAN EVRAS MD 11/07/23 Loperamide Hcl (Imodium) 2 Mg Cp, 2 MG PO PRN PRN, #30 CAP Prov:STEVAN VERAS MD 11/07/23 Docusate Sodium (Colace) 100 Mg Cap, 1 CAP PO BID, #60 CAP Prov:STEVAN VERAS MD 10/28/23 Pantoprazole Sodium Sesquihydr (Protonix) 40 Mg Tab, 40 MG PO DAILY for 7 Days, #7 TAB Prov:CHANTAL STEWART MD 10/14/23 Reported Medications Guaifenesin-Codeine (Robitussin/Codeine) 10 Ml So, 5 ML PO Q6HR, #120 ML 01/31/24 Duloxetine Hcl (Cymbalta) 60 Mg Cap, 1 CAP PO DAILY, #90 CAP 3 Refills 01/30/24 Oxycodone Hcl (OxyCONTIN ER Tablet) 10 Mg Tb, 10 MG PO TIDP PRN for BREAKTHROUGH PAIN, TAB 10/14/23 Sennosides-Docusate Sodium (Senokot S) 1 Tab Tab, 1 TAB PO BID, #30 TAB 10/14/23 Tizanidine Hydrochloride (Tizanidine Hcl) 4 Mg Tab, 4 MG PO TID, TAB 10/14/23 Alprazolam (Xanax) 1 Mg Tab, 1 TAB PO DAILY PRN, #60 TAB 10/14/23 Gabapentin (Gabapentin) 600 Mg Tab, 1 TAB PO TID, #90 TAB 3 Refills 10/14/23 Lisinopril (Lisinopril) 40 Mg Tab, 1 TAB PO DAILY, #30 TAB 5 Refills 10/14/23 Information Source: Patient Mode of Arrival: Ambulatory Timing: Days Duration: Since onset Prehospital treatment: None Quality: Aching Vomitus: None Stool: Impaction Severity: Moderate Recent: None Recent Hx of: None Pain Location: RUQ Modifying Factors: Nothing Associated sign and symptoms: Constipation, Abdominal Pain Past Medical History PAST MEDICAL HISTORY: HTN Past Medical History (Other): Chronic back pain Surgical History: Cholecystectomy, Hernia Repair, Hysterectomy, Tubal Ligation Surgical History (Other): Colostomy, Colostomy Reversal [employer] History: Other Family History Family History: Reviewed,noncontributory to illness Social History Smoker: Cigarettes Alcohol: Denies ETOH Use Drugs: Denies Drug Use Lives In: Home Constitutional: denies: chills, diaphoresis, fatigue, fever, malaise, sweats, weakness, others EENTM: denies: blurred vision, double vision, ear bleeding, ear discharge, ear drainage, ear pain, ear ringing, eye pain, eye redness, hearing loss, mouth pain, mouth swelling, nasal discharge, nose bleeding, nose congestion, nose pain, photophobia, tearing, throat pain, throat swelling, voice changes, others Respiratory: denies: cough, hemoptysis, orthopnea, SOB at rest, shortness of breath, SOB with excertion, stridor, wheezing, others Cardiovascular: denies: chest pain, dizzy spells, diaphoresis, Dyspnea on exertion, edema, irregular heart beat, left arm pain, lightheadedness, palpitations, PND, syncope, others Gastrointestinal: reports: abdominal pain, constipated; denies: abdomen distended, blood streaked bowels, diarrhea, dysphagia, difficulty swallowing, he matemesis, melena, nausea, poor appetite, poor fluid intake, rectal bleeding, rectal pain, vomiting, others Genitourinary: reports: flank pain; denies: abnormal vagina bleeding, burning, dyspareunia, dysuria, frequency, hematuria, incontinence, pain, , vagina discharge, urgency, others Neurological: denies: dizziness, fainting, headache, left sided numbness, left sided weakness, numbness, paresthesia, pre-existing deficit, right sided numbness, right sided weakness, seizure, speech problems, tingling, tremors, weakness, others Musculoskeletal: denies: back pain, gout, joint pain, joint swelling, muscle pain, muscle stiffness, neck pain, others Integumetry: denies: bruises, change in color, change in hair/nails, dryness, laceration, lesions, lumps, rash, wounds, others Allergic/Immunocompromised: denies: Difficulty Healing, Frequent Infections, Hives, Itching, others Hematologic/Lymphatic: denies: anemia, blood clots, easy bleeding, easy bruising, swollen glands, others Endocrine: denies: excessive hunger, excessive sweating, excessive thirst, excessive urination, flushing, intolerance to cold, intolerance to heat, unexplained weight gain, unexplained weight loss, others Psychiatric: denies: anxiety, bipolar disorder, depression, hopeless, panic disorder, schizophrenia, sleepless, suicidal, others All Other Systems: Reviewed and Negative Physical Exam General Appearance: No Apparent Distress, Normal HEENT: Normal ENT Inspection, Pharynx Normal, TMs Normal Neck: Full Range of Motion, Non-Tender, Normal, Normal Inspection Respiratory: Chest Non-Tender, Lungs Clear, No Accessory Muscle Use, No Respiratory Distress, Normal Breath Sounds Cardiovascular: No Edema, No JVD, No Murmur, No Gallop, Normal Peripheral Pulses, Regular Rate/Rhythm Breast Exam: Deferred Gastrointestinal: No Organomegaly, No Pulsatile Mass, Normal Bowel Sounds, Soft, Tenderness (RUQ tenderness) Genitalia: Deferred Pelvic: Deferred Rectal: Deferred Extremities: No calf tenderness, Normal capillary refill, Normal inspection, Normal range of motion, Non-tender, No pedal edema Musculoskeletal : Apperance: Normal Neurologic: Alert, currency counter II-XII nml as Tested, No Motor Deficits, Normal Affect, Normal Mood, No Sensory Deficits Cerebellar Function: Normal Reflexes: Normal Skin: Dry, Normal Color, Warm Lymphatic: No Adenopathy Was a procedure done? Was a procedure done?: No GI differential Dx Differential Diagnosis: Constipation, Gastritis/PUD, Gastroenteritis, Hernia, Hepatitis, Inflammatory BD, Ischemic Bowel, Pancreatitis, Electrolyte Imbalance, Food Poisoning, , Bacterial, Parasitic, Viral, Impaction, Mass, Kidney Stone X-Ray, Labs, Meds, VS Vital Signs Date Time Temp Pulse Resp B/P (MAP) Pulse Ox O2 Delivery O2 Flow Rate FiO2 06/22/24 18:11 98.3 94 18 163/98 (119) 97 Lab Test 06/22/24 18:42 Range/Units White Blood Count 10.4 4.4-10.8 10^3/uL Red Blood Count 4.66 4.0-5.20 10^6/uL Hemoglobin 14.5 12.2-16.2 g/dL Hematocrit 41.6 36.0-46.0 % Mean Corpuscular Volume 89.2 80.0-100.0 fL Mean Corpuscular Hemoglobin 31.0 28.0-32.0 pg Mean Corpuscular Hemoglobin Concent 34.8 32.0-36.0 g/dL Red Cell Distribution Width 14.9 H 11.8-14.3 % Platelet Count 338 140-450 10^3/uL Mean Platelet Volume 7.7 6.9-10.8 fL Neutrophils (%) (Auto) 46.8 37.0-80.0 % Lymphocytes (%) (Auto) 43.3 10.0-50.0 % Monocytes (%) (Auto) 5.5 0.0-12.0 % Eosinophils (%) (Auto) 3.0 0.0-7.0 % Basophils (%) (Auto) 1.4 0.0-2.0 % Neutrophils # (Auto) 4.8 1.6-8.6 10 ^3/uL Lymphocytes # (Auto) 4.5 0.4-5.4 10 ^3/uL Monocytes # (Auto) 0.6 0-1.3 10 ^3/uL Eosinophils # (Auto) 0.3 0-0.8 10 ^3/uL Basophils # (Auto) 0.2 0-0.2 10 ^3/uL Nucleated Red Blood Cells 0.0 % Sodium Level 142 136-145 mmol/L Potassium Level 3.9 3.5-5.1 mmol/L Chloride Level 109 H 98-107 mmol/L Carbon Dioxide Level 26 20-31 mmol/L Anion Gap 7 5-15 Blood Urea Nitrogen 17 9-23 mg/dL Creatinine 0.72 0.550-1.02 mg/dL Glomerular Filtration Rate Calc 102 >90 mL/min BUN/Creatinine Ratio 23.6 H 10.0-20.0 Serum Glucose 106 74-106 mg/dL Calcium Level 10.2 8.7-10.4 mg/dL Total Bilirubin 0.2 0.2-1.0 mg/dL Aspartate Amino Transferase (AST) 12 L 13-40 U/L Alanine Aminotransferase (ALT) 22 7-40 U/L Alkaline Phosphatase 95 46-116 U/L Total Protein 7.0 5.7-8.2 g/dL Albumin 4.3 3.2-4.8 g/dL Lipase 37 12-53 U/L Beta HCG, Quantitative 2.7 1.5-4.2 mIU/mL CT Abd/Pel: Findings: Lung Bases: No acute or significant lung base finding. Normal heart size. No pleural or pericardial effusion. Liver: Multiple hepatic cysts.. Gallbladder and Biliary Tree: Unremarkable Spleen: Unremarkable Pancreas: The pancreas is grossly normal in appearance. Adrenal Glands: Unremarkable Kidneys: Kidneys are grossly normal without calculi or hydronephrosis. Bladder: Grossly unremarkable for degree of distention. Bowel: The stomach is grossly normal in appearance. Small bowel and colon are normal in caliber and distribution. The appendix is not visualized; however, no secondary findings of acute appendicitis identified. Ascites: Absent Lymphadenopathy: No mesenteric, retroperitoneal or periportal lymphadenopathy. Abdominal Wall and Mesentery: Scarring subcutaneous tissues right lower abdomen with resolved abscess in the anterior abdominal wall compared to 01/01/2024 Vasculature: The visualized abdominal aorta is normal in size and caliber. Evaluation of abdominal and pelvic vessels is limited due to lack of intravenous contrast. Pelvic Organs: Unremarkable Musculoskeletal: No aggressive focal bony lesions, acute fractures or dislocation. Grade 1 anterior spondylolisthesis L4-5 Soft tissues: Unremarkable IMPRESSION: 1. Hepatic cysts 2. Gallbladder has been surgically removed. 3. No nephrolithiasis or hydronephrosis 4. Resolved anterior abdominal wall abscess seen on study of February 06, 2024. Images Reviewed?: Images reviewed and evaluated by me Time of 1ST Reevaluation: 19:32 Reevaluation 1ST: Unchanged Patient Education/Counseling: Diagnosis, Treatment Family Education/Counseling: No Family Present Additional Information The following tests were ordered, and results were reviewed by me: CT Abd/Pel, Urine Culture, Lipase, Beta HCG Quant, CBC, and CMP. I reviewed and agreed with the following test results read by other providers: CT Abd/Pel. I discussed treatments and results with medical personnel. Departure 1 Departure Time of Disposition: 21:00 Impression: Primary Impression: Abdominal pain Qualified Codes: R10.9 - Unspecified abdominal pain Additional Impression: Constipation Qualified Codes: K59.01 - Slow transit constipation Disposition: HOME / SELF CARE / HOMELESS Condition: Good e-Prescriptions Polyethylene Glycol 3350 (Miralax) 17 Gm Pow 17 GM PO BIDPRN PRN for 2 Days, #4 POW Prov: GISSEL RAMOS MD 06/22/24 Discharged With: Self Critical Care Note Critical Care Time?: Yes (55 min-critical care time only) Critical care comment: due to concerns for pt's condition deteriorating, the care required my highest level of attention and readiness to intervene. i assessed the patient, ordered the appropriate treatments and tests and reassessed his response. i communicated with medical personnel and consultants, i reviewed his medical records, and formulated a treatment plan. cc time does not include any procedures Stability Stability form required: No Heart Score Heart Score: Heart Score Response (Comments) Value History N/A 0 EKG N/A 0 Age N/A 0 Risk Factors N/A 0 Troponin N/A 0 Total 0 I personally scribed for GISSEL RAMOS MD ([email or web address]) on 06/22/24 at 18:47. Electronically submitted by Pb Kiran ([email or web address]). I personally scribed for GISSEL RAMOS MD ([email or web address]) on 06/22/24 at 20:39. Electronically submitted by Pb Kiran ([email or web address]). GISSEL RAMOS MD Jun 22, 2024 18:47
[2024-06-22 19:05] LABS: Basophils # (auto) 0.2 10 ^3/uL (0-0.2); Basophils % (auto) 1.4 % (0.0-2.0); Eosinophils # (auto) 0.3 10 ^3/uL (0-0.8); Hematocrit 41.6 % (36.0-46.0); Hemoglobin 14.5 g/dL (12.2-16.2); Lymphocytes # (auto) 4.5 10 ^3/uL (0.4-5.4); Lymphocytes % (auto) 43.3 % (10.0-50.0); Mean Corpuscular Hgb Conc. 34.8 g/dL (32.0-36.0); Mean Corpuscular Volume 89.2 fL (80.0-100.0); Monocytes # (auto) 0.6 10 ^3/uL (0-1.3); Monocytes % (auto) 5.5 % (0.0-12.0); Neutrophils # (auto) 4.8 10 ^3/uL (1.6-8.6); Neutrophils % (auto) 46.8 % (37.0-80.0); Platelet Count (auto) 338 10^3/uL (140-450); Red Blood Cells 4.66 10^6/uL (4.0-5.20); Red Cell Distribution Width 14.9 % (11.8-14.3); White Blood Cell 10.4 10^3/uL (4.4-10.8)
[2024-06-22 19:21] LABS: Alanine Aminotransferase 22 U/L (7-40); Albumin 4.3 g/dL (3.2-4.8); Alkaline Phosphatase 95 U/L (46-116); Anion Gap 7 (5-15); BUN/Creatinine Ratio 23.6 (10.0-20.0); Bilirubin, Total 0.2 mg/dL (0.2-1.0); Blood Urea Nitrogen 17 mg/dL (9-23); Calcium 10.2 mg/dL (8.7-10.4); Carbon Dioxide 26 mmol/L (20-31); Glucose 106 mg/dL (74-106); Potassium 3.9 mmol/L (3.5-5.1); Sodium 142 mmol/L (136-145)
[2024-06-22 19:24] LABS: Aspartate Aminotransferase 12 U/L (13-40); Chloride 109 mmol/L (98-107)
[2024-06-22 19:33] LABS: Lipase 37 U/L (12-53)
--- NOTE | 2024-06-22 20:13 | DVH ---
Exam: CT CT AB PEL WO CON-NO ORAL OR IV History: pain Comparison Study: None available at time of dictation. TECHNIQUE: Multidetector CT of the abdomen was performed from lung bases to pubic symphysis. Imaging was performed without IV contrast. Axial, coronal and sagittal multiplanar reformats were obtained fr om the axial data set by the technologist. Radiation Dose Information: CT Dose: CTDI volume is 10.3 mGy. Dose-length product is 530.21 mGy*cm FINDINGS: Evaluation of solid organs is limited due to lack of intravenous contrast use. Findings: Lung Bases: No acute or significant lung base finding. Normal heart size. No pleural or pericardial effusion. Liver: Multiple hepatic cysts.. Gallbladder and Biliary Tree: Unremarkable Spleen: Unremarkable Pancreas: The pancreas is grossly normal in appearance. Adrenal Glands: Unremarkable Kidneys: Kidneys are grossly normal without calculi or hydronephrosis. Bladder: Grossly unremarkable for degree of distention. Bowel: The stomach is grossly normal in appearance. Small bowel and colon are normal in caliber and d istribution. The appendix is not visualized; however, no secondary findings of acute appendicitis id entified. Ascites: Absent Lymphadenopathy: No mesenteric, retroperitoneal or periportal lymphadenopathy. Abdominal Wall and Mesentery: Scarring subcutaneous tissues right lower abdomen with resolved abscess in the anterior abdominal wall compared to 01/01/2024 Vasculature: The visualized abdominal aorta is normal in size and caliber. Evaluation of abdominal a nd pelvic vessels is limited due to lack of intravenous contrast. Pelvic Organs: Unremarkable Musculoskeletal: No aggressive focal bony lesions, acute fractures or dislocation. Grade 1 anterior s pondylolisthesis L4-5 Soft tissues: Unremarkable IMPRESSION: 1. Hepatic cysts 2. Gallbladder has been surgically removed. 3. No nephrolithiasis or hydronephrosis 4. Resolved anterior abdominal wall abscess seen on study of February 06, 2024. Radiation optimization: All CT scans at this facility use at least one of these dose optimization te chniques: automated exposure control mA and/or kV adjustment per patient size (includes targeted exa ms where dose is matched to clinical indication) or iterative reconstruction.
[2024-06-22] MEDS ORDERED: POLY335015 PO (21:02)
[2024-06-22] MEDS: HYDROcodone-ACET 5/325MG TAB PO ONE (21:28)
[2024-06-22 21:29] VITALS: BP 118/97; PULSE 75; RESP 16; TEMP 97.9; O2SAT 98
== END 2024-06-22 21:38 | disposition home or self-care (01) ==
LOC: ER 17:36
DX: K59.00 Constipation, unspecified (principal); I10 Essential (primary) hypertension; G89.29 Other chronic pain; F17.210 Nicotine dependence, cigarettes, uncomplicated; Z79.899 Other long term (current) drug therapy; Z90.49 Acquired absence of other specified parts of digestive tract; Z90.710 Acquired absence of both cervix and uterus; Z98.890 Other specified postprocedural states
CPT/HCPCS: 36415; 74176; 80053; 83690; 84702; 85025; 87086; 87088; 87186

== ENCOUNTER 2024-07-11 23:19 | Emergency (ER) | payer OTHER, MEDICAID ==
[~2024-07-11] VITALS: Ht 149.9 cm; Wt 72.2 kg
[~2024-07-11 23:19] MED LIST changes: +POLY335015 PO
[2024-07-12 00:34] LABS: Urine Bacteria None Seen /hpf (None Seen)
[2024-07-12 01:00] LABS: Urine Blood Negative /uL (Negative); Urine Clarity Clear (Clear); Urine Color Colorless (Yellow); Urine Protein, UAD Negative (Negative); Urine Specific Gravity 1.011 (1.001-1.035); Urine Squamous Epithelial Cell FEW /hpf (<5); Urine Urobilinogen Normal (Negative); Urine WBC 2 /hpf (0 - 5); Urine pH 5.5 (5.0-9.0)
[2024-07-12 01:13] LABS: Basophils # (auto) 0.1 10 ^3/uL (0-0.2); Basophils % (auto) 1.3 % (0.0-2.0); Eosinophils # (auto) 0.3 10 ^3/uL (0-0.8); Eosinophils % (auto) 2.6 % (0.0-7.0); Hematocrit 42.9 % (36.0-46.0); Hemoglobin 14.4 g/dL (12.2-16.2); Lymphocytes % (auto) 40.2 % (10.0-50.0); Mean Corpuscular Hemoglobin 30.6 pg (28.0-32.0); Mean Corpuscular Hgb Conc. 33.6 g/dL (32.0-36.0); Mean Corpuscular Volume 91.1 fL (80.0-100.0); Monocytes # (auto) 0.7 10 ^3/uL (0-1.3); Monocytes % (auto) 7.5 % (0.0-12.0); Neutrophils # (auto) 4.8 10 ^3/uL (1.6-8.6); Neutrophils % (auto) 48.4 % (37.0-80.0); Platelet Count (auto) 350 10^3/uL (140-450); Red Blood Cells 4.71 10^6/uL (4.0-5.20); Red Cell Distribution Width 14.8 % (11.8-14.3); White Blood Cell 9.8 10^3/uL (4.4-10.8)
[2024-07-12 01:25] LABS: Alanine Aminotransferase 20 U/L (7-40); Albumin 4.5 g/dL (3.2-4.8); Alkaline Phosphatase 100 U/L (46-116); Anion Gap 5 (5-15); Aspartate Aminotransferase 13 U/L (13-40); Blood Urea Nitrogen 17 mg/dL (9-23); Calcium 9.9 mg/dL (8.7-10.4); Carbon Dioxide 23 mmol/L (20-31); Chloride 111 mmol/L (98-107); Glucose 102 mg/dL (74-106); Potassium 4.1 mmol/L (3.5-5.1); Sodium 139 mmol/L (136-145)
[2024-07-12 01:26] LABS: Total Protein 7.2 g/dL (5.7-8.2)
[2024-07-12 01:29] LABS: Bilirubin, Total 0.3 mg/dL (0.2-1.0)
--- NOTE | 2024-07-12 02:01 | DVH ---
CLINICAL HISTORY: ABD PAIN TECHNIQUE: CT of the abdomen and pelvis was performed without intravenous contrast. This exam was per formed according to our departmental dose optimization program. Up-to-date CT equipment and radiation dose reduction techniques are utilized as appropriate. COMPARISON: CT CT AB PEL WO CON-NO ORAL OR IV on DOS: 06/22/24, C FINDINGS: Lower Thorax: Linear bibasilar scarring or atelectasis. Partially imaged at least mild calcification in the left anterior descending coronary artery. Liver and Biliary system: Normal-sized liver. There are multiple well-defined hypodense lesions in merari th lobes of the liver likely cysts although not optimally evaluated without contrast. Prior cholecyst ectomy. No biliary ductal dilatation. Spleen: Unremarkable. Adrenal Glands and Kidneys: Normal adrenal glands aside from a Tiny left adrenal gland myelolipoma. T iny nonobstructing right greater than left renal calculi. No hydronephrosis. Pancreas and Retroperitoneum: Unremarkable. Aorta and Major Vessels: Aortoiliac vessels are normal in caliber containing mild calcified atheroscl erotic plaque. Bowel, Mesentery and Peritoneal space: Prior distal colon resection with upper rectal anastomosis. Mi ld occasional colonic diverticulosis. Fluid-filled small and large bowel loops. There is an additiona l right lower quadrant small bowel anastomosis. There is no free air or fluid collection. Pelvis: Prior hysterectomy. Urinary bladder is mildly distended. There is no pelvic lymphadenopathy. Abdominal wall and Osseous Structures: Prior midline laparotomy with scarring. Prior mesh repair of t he right anterior abdominal wall in the lower quadrant where there was previously an ileostomy. Linea r scarring in the right lower quadrant abdominal wall from prior ileostomy. Multilevel lower thoracic and lumbar spondylosis. Grade 1 anterolisthesis at L4-L5. No destructive osseous lesion. IMPRESSION: 1. Prior distal colon resection with upper rectal anastomosis as well as a right lower quadrant small bowel anastomosis. No bowel obstruction. 2. Diffuse fluid-filled small and large bowel which may be physiologic or related to enterocolitis. This could be manifesting as loose stools and/or diarrhea. 3. Prior mesh repair of the right lower quadrant anterior abdominal wall where there was previously a n ileostomy. 4. Partially imaged mild coronary artery calcifications in the left anterior descending artery. 5. Tiny nonobstructing akyvj-[id number]-left renal calculi. 6. Occasional colonic diverticulosis.
[2024-07-12] MEDS ORDERED: TAMS-35 PO (02:48)
[2024-07-12] MEDS ORDERED: NAP500T PO (02:48)
--- NOTE | 2024-07-12 02:49 | ED.PDOC ---
History of Present Illness HPI Comments Patient complaining of left-sided flank pain and back pain x3 or four days. No urinary symptoms. No recent heavy lifting or trauma. Patient reports pain does radiate to her abdomen. Nothing makes it better, nothing makes it worse. No fevers no chills. Chief Complaint: Back Pain Time Seen by MD: 23:50 Primary Care Provider: CHARLES Reviewed Notes: Nurses Notes Allergies: Coded Allergies: NO KNOWN ALLERGIES (Unverified , 05/10/14) Home Meds Active Scripts Polyethylene Glycol 3350 (Miralax) 17 Gm Pow, 17 GM PO BIDPRN PRN for 2 Days, #4 POW Prov:GISSEL RAMOS MD 06/22/24 Alprazolam (Xanax) 0.25 Mg Tb, 1 TAB PO BID PRN, #15 TAB Prov:STEVAN VERAS MD 06/02/24 Tramadol HCl (Tramadol HCl) 50 Mg Tab, 50 MG PO Q6HP PRN, #15 TAB Prov:STEVAN VERAS MD 06/02/24 Amoxicillin & Pot Clavulanate (AUGMENTIN TABLET) 875 Mg Tb, 875 MG PO BID for 7 Days, #14 TAB Prov:STEVAN VERAS MD 02/08/24 Dextromethorphan-Guaifenesin (Robitussin-Dm) 10 Ml Sr, 10 ML PO Q6HP PRN, #120 ML Prov:STEVAN VERAS MD 01/31/24 Hydrocortone (Hydrocortisone 2.5%) 1 Applic Ap, 1 APPLIC CO QHSP PRN, #10 APPLIC Prov:STEVAN VERAS MD 01/31/24 Ondansetron Odt 4MG Tab (ZOFRAN PO) 4 Mg Tb, 4 MG PO TID PRN for 3 Days, #9 TAB 0 Refills ODT TAB-DISSOLVE IN MOUTH, THEN SWALLOW Prov:MALLORY THOMAS MD 01/19/24 Miconazole Nitrate Vaginal (Monistat 7 Combination Pa 100 & 2 mg-% (9Gm)) 1 Kit Kit, 1 KIT VA DAILY, #1 KIT 0 Refills Follow instructions on package insert and take as prescribed. Prov:MALLORY THOMAS MD 01/19/24 Dicyclomine Hcl (BENTYL CAPSULE) 10 Mg Cp, 1 CAP PO TID, #90 CAP 11 Refills Prov:NICHO COELLO 01/05/24 Hydrocodone-Acetaminophen (Hydrocodone Bitartrate/AC 5-325 mg) 1 Tab Tab, 1 TAB PO Q6HP PRN, #30 TAB Prov:STEVAN VERAS MD 11/07/23 Loperamide Hcl (Imodium) 2 Mg Cp, 2 MG PO PRN PRN, #30 CAP Prov:STEVAN VERAS MD 11/07/23 Docusate Sodium (Colace) 100 Mg Cap, 1 CAP PO BID, #60 CAP Prov:STEVAN VERAS MD 10/28/23 Pantoprazole Sodium Sesquihydr (Protonix) 40 Mg Tab, 40 MG PO DAILY for 7 Days, #7 TAB Prov:CHANTAL STEWART MD 10/14/23 Reported Medications Guaifenesin-Codeine (Robitussin/Codeine) 10 Ml So, 5 ML PO Q6HR, #120 ML 01/31/24 Duloxetine Hcl (Cymbalta) 60 Mg Cap, 1 CAP PO DAILY, #90 CAP 3 Refills 01/30/24 Oxycodone Hcl (OxyCONTIN ER Tablet) 10 Mg Tb, 10 MG PO TIDP PRN for BREAKTHROUGH PAIN, TAB 10/14/23 Sennosides-Docusate Sodium (Senokot S) 1 Tab Tab, 1 TAB PO BID, #30 TAB 10/14/23 Tizanidine Hydrochloride (Tizanidine Hcl) 4 Mg Tab, 4 MG PO TID, TAB 10/14/23 Alprazolam (Xanax) 1 Mg Tab, 1 TAB PO DAILY PRN, #60 TAB 10/14/23 Gabapentin (Gabapentin) 600 Mg Tab, 1 TAB PO TID, #90 TAB 3 Refills 10/14/23 Lisinopril (Lisinopril) 40 Mg Tab, 1 TAB PO DAILY, #30 TAB 5 Refills 10/14/23 Information Source: Patient Mode of Arrival: Ambulatory Past Medical History PAST MEDICAL HISTORY: HTN Surgical History: Cholecystectomy, Hernia Repair, Hysterectomy, Tubal Ligation [employer]ING History: Other Family History Family History: Reviewed,noncontributory to illness Social History Smoker: Cigarettes Alcohol: Denies ETOH Use Drugs: Denies Drug Use Lives In: Home Constitutional: denies: chills, diaphoresis, fatigue, fever, malaise, sweats, weakness, others EENTM: denies: blurred vision, double vision, ear bleeding, ear discharge, ear drainage, ear pain, ear ringing, eye pain, eye redness, hearing loss, mouth pain, mouth swelling, nasal discharge, nose bleeding, nose congestion, nose pain, photophobia, tearing, throat pain, throat swelling, voice changes, others Respiratory: denies: cough, hemoptysis, orthopnea, SOB at rest, shortness of breath, SOB with excertion, stridor, wheezing, others Cardiovascular: denies: chest pain, dizzy spells, diaphoresis, Dyspnea on exertion, edema, irregular heart beat, left arm pain, lightheadedness, palpitations, PND, syncope, others Gastrointestinal: reports: abdomen distended, abdominal pain; denies: blood streaked bowels, constipated, diarrhea, dysphagia, difficulty swallowing, hematemesis, melena, nausea, poor appetite, poor fluid intake, rectal bleeding, rectal pain, vomiting, others Genitourinary: reports: flank pain; denies: abnormal vagina bleeding, burning, dyspareunia, dysuria, frequency, hematuria, incontinence, pain, , vagina discharge, urgency, others Neurological: denies: dizziness, fainting, headache, left sided numbness, left sided weakness, numbness, paresthesia, pre-existing deficit, right sided numbness, right sided weakness, seizure, speech problems, tingling, tremors, weakness, others Musculoskeletal: denies: back pain, gout, joint pain, joint swelling, muscle pain, muscle stiffness, neck pain, others Integumetry: denies: bruises, change in color, change in hair/nails, dryness, laceration, lesions, lumps, rash, wounds, others Allergic/Immunocompromised: denies: Difficulty Healing, Frequent Infections, Hives, Itching, others Hematologic/Lymphatic: denies: anemia, blood clots, easy bleeding, easy bruising, swollen glands, others Physical Exam General Appearance: No Apparent Distress, Normal HEENT: Normal ENT Inspection, Pharynx Normal, TMs Normal Neck: Full Range of Motion, Non-Tender, Normal, Normal Inspection Respiratory: Chest Non-Tender, Lungs Clear, No Accessory Muscle Use, No Respiratory Distress, Normal Breath Sounds Cardiovascular: No Edema, No JVD, No Murmur, No Gallop, Normal Peripheral Pulses, Regular Rate/Rhythm Breast Exam: Deferred Gastrointestinal: No Organomegaly, Non Tender, No Pulsatile Mass, Normal Bowel Sounds, Soft Genitalia: Deferred Pelvic: Deferred Rectal: Deferred Extremities: No calf tenderness, Normal capillary refill, Normal inspection, Normal range of motion, Non-tender, No pedal edema Musculoskeletal : Apperance: Normal Neurologic: Alert, museum technician II-XII nml as Tested, No Motor Deficits, Normal Affect, Normal Mood, No Sensory Deficits Cerebellar Function: Normal Reflexes: Normal Skin: Dry, Normal Color, Warm Lymphatic: No Adenopathy Was a procedure done? Was a procedure done?: No Differential Dx Considerations may include: Pyelonephritis, UTI, obstructing kidney stone, gastritis, appendicitis, X-Ray, Labs, Meds, VS Vital Signs Date Time Temp Pulse Resp B/P (MAP) Pulse Ox O2 Delivery O2 Flow Rate FiO2 07/11/24 23:59 98.0 84 18 162/82 (108) 96 Lab Test 07/12/24 01:00 07/12/24 00:33 Range/Units White Blood Count 9.8 4.4-10.8 10^3/uL Red Blood Count 4.71 4.0-5.20 10^6/uL Hemoglobin 14.4 12.2-16.2 g/dL Hematocrit 42.9 36.0-46.0 % Mean Corpuscular Volume 91.1 80.0-100.0 fL Mean Corpuscular Hemoglobin 30.6 28.0-32.0 pg Mean Corpuscular Hemoglobin Concent 33.6 32.0-36.0 g/dL Red Cell Distribution Width 14.8 H 11.8-14.3 % Platelet Count 350 140-450 10^3/uL Mean Platelet Volume 7.4 6.9-10.8 fL Neutrophils (%) (Auto) 48.4 37.0-80.0 % Lymphocytes (%) (Auto) 40.2 10.0-50.0 % Monocytes (%) (Auto) 7.5 0.0-12.0 % Eosinophils (%) (Auto) 2.6 0.0-7.0 % Basophils (%) (Auto) 1.3 0.0-2.0 % Neutrophils # (Auto) 4.8 1.6-8.6 10 ^3/uL Lymphocytes # (Auto) 4.0 0.4-5.4 10 ^3/uL Monocytes # (Auto) 0.7 0-1.3 10 ^3/uL Eosinophils # (Auto) 0.3 0-0.8 10 ^3/uL Basophils # (Auto) 0.1 0-0.2 10 ^3/uL Nucleated Red Blood Cells 0.0 % Sodium Level 139 136-145 mmol/L Potassium Level 4.1 3.5-5.1 mmol/L Chloride Level 111 H 98-107 mmol/L Carbon Dioxide Level 23 20-31 mmol/L Anion Gap 5 5-15 Blood Urea Nitrogen 17 9-23 mg/dL Creatinine 0.63 0.550-1.02 mg/dL Glomerular Filtration Rate Calc 108 >90 mL/min BUN/Creatinine Ratio 27.0 H 10.0-20.0 Serum Glucose 102 74-106 mg/dL Calcium Level 9.9 8.7-10.4 mg/dL Total Bilirubin 0.3 0.2-1.0 mg/dL Aspartate Amino Transferase (AST) 13 13-40 U/L Alanine Aminotransferase (ALT) 20 7-40 U/L Alkaline Phosphatase 100 46-116 U/L Total Protein 7.2 5.7-8.2 g/dL Albumin 4.5 3.2-4.8 g/dL Urine Color Colorless Yellow Urine Clarity Clear Clear Urine pH 5.5 5.0-9.0 Urine Specific [place] 1.011 1.001-1.035 Urine Protein Negative Negative Urine Ketones Negative Negative Urine Blood Negative Negative /uL Urine Nitrite Negative Negative Urine Bilirubin Negative Negative Urine Urobilinogen Normal Negative mg/dL Urine Leukocyte Esterase Negative Negative /uL Urine RBC <1 0 - 4 /hpf Urine WBC 2 0 - 5 /hpf Urine Squamous Epithelial Cells Few <5 /hpf Urine Bacteria None seen None Seen /hpf Urine Glucose Normal Normal mg/dL X-Ray, Labs, Meds, VS Comment Imaging: X-rays and CT scans were reviewed and interpreted by this provider, kidney stones noted bilaterally, nonobstructing. Pending radiology review. Laboratory: Labs reviewed and interpreted by this provider. No significant abnormalities noted. Patient has prior medical visits reviewed. Med reconciliation performed Vital signs reviewed Time of 1ST Reevaluation: 02:48 Reevaluation 1ST: Unchanged Patient Education/Counseling: Diagnosis, Treatment, Need For Follow Up (Patient advised to follow-up in the emergency room in the next 24 to 48 hours if symptoms do not improve. Advised follow-up with PCP in the next 3 to 5 days. Patient verbalized understanding. ) Family Education/Counseling: Diagnosis Departure 1 Departure Time of Disposition: 02:47 Impression: Primary Impression: Lumbar sprain Qualified Codes: S33.5XXA - Sprain of ligaments of lumbar spine, initial encounter Additional Impression: Kidney stone Disposition: HOME / SELF CARE / HOMELESS Condition: Fair e-Prescriptions Tamsulosin Hcl (Flomax) 0.4 Mg Cap 1 CAP PO DAILY for 10 Days, #10 CAP 11 Refills Prov: NICHO COELLO 07/12/24 Naproxen (NAPROSYN TABLET) 500 Mg Tb 1 TAB PO BID PRN, #60 TAB 1 Refill Prov: NICHO COELLO 07/12/24 Discharged With: Self Critical Care Note Critical Care Time?: No Stability Stability form required: No Heart Score Heart Score: Heart Score Response (Comments) Value History N/A 0 EKG N/A 0 Age N/A 0 Risk Factors N/A 0 Troponin N/A 0 Total 0 NICHO COELLO Jul 12, 2024 02:49
[2024-07-12] MEDS ORDERED: PRED20TA2 PO (03:12)
[2024-07-12 03:21] VITALS: BP 134/92; PULSE 74; RESP 18; TEMP 98; O2SAT 97
== END 2024-07-12 03:24 | disposition home or self-care (01) ==
LOC: ER 23:19
DX: S33.5XXA Sprain of ligaments of lumbar spine, initial encounter (principal); N20.0 Calculus of kidney; I10 Essential (primary) hypertension; F17.210 Nicotine dependence, cigarettes, uncomplicated; Z90.49 Acquired absence of other specified parts of digestive tract; Z90.710 Acquired absence of both cervix and uterus; Z79.899 Other long term (current) drug therapy; X58.XXXA Exposure to other specified factors, initial encounter; Y93.89 Activity, other specified; Y92.89 Other specified places as the place of occurrence of the external cause; Y99.8 Other external cause status
CPT/HCPCS: 36415; 74176; 80053; 81001; 85025

== ENCOUNTER 2024-07-28 16:02 | Emergency (ER) | payer OTHER, MEDICAID ==
[~2024-07-28] VITALS: Ht 149.9 cm; Wt 73.7 kg
[~2024-07-28 16:02] MED LIST changes: +NAP500T PO; +PRED20TA2 PO; +TAMS-35 PO
--- NOTE | 2024-07-28 16:44 | ECG ---
[facility] Test Date: 2024-07-28 Test Time: 16:37:24 Pat Name: ARBEN SPARKS Department: ER Room: Gender: F Manager Gaming: GP : 1975 Requested By: FRANKO ROSE Order Number: [id number] Reading MD: Rocky Meneses Measurements Intervals [place] Rate: 78 P: -30 NV: 149 QRS: 37 QRSD: 95 T: -59 QT: 359 QTc: 409 Interpretive Statements Sinus rhythm Low voltage, precordial leads Borderline repolarization abnormality Electronically Signed On 08-01-2024 15:40:23 PST by Rocky Meneses Please click the below link to view image of tracing.
--- NOTE | 2024-07-28 16:49 | ED.PDOC ---
GI ASSESSMENT HPI Comments 49 Y F with PMHX of HTN and chronic bradycardia presents to the ED for CC of abdominal pain. Patient states that she has been experiencing RLQ abdominal pain with associated symptoms of nausea, vomiting, and diarrhea. Patient states that she has been having a poor apettite as she is unable to keep anything down. Patient was last discharged from [facility] for DX: intractable abdominal pain. Patient comments, that she has had gastrointestinal problems for years. Patient denies fever, body-aches, constipation, or dysuria. Chief Complaint: Flank Pain Time Seen by MD: 16:40 Primary Care Provider: CHARLES Reviewed Notes: Nurses Notes, Medications, Allergies Allergies: Coded Allergies: NO KNOWN ALLERGIES (Unverified , 05/10/14) Home Meds Active Scripts Prednisone (Prednisone) 20 Mg Tab, 20 MG PO DAILY for 5 Days, #5 MG Prov:NICHO COELLOP 07/12/24 Tamsulosin Hcl (Flomax) 0.4 Mg Cap, 1 CAP PO DAILY for 10 Days, #10 CAP 11 Refills Prov:NICHO COELLOP 07/12/24 Naproxen (NAPROSYN TABLET) 500 Mg Tb, 1 TAB PO BID PRN, #60 TAB 1 Refill Prov:NICHO COELLOP 07/12/24 Polyethylene Glycol 3350 (Miralax) 17 Gm Pow, 17 GM PO BIDPRN PRN for 2 Days, #4 POW Prov:GISSEL RAMOS MD 06/22/24 Alprazolam (Xanax) 0.25 Mg Tb, 1 TAB PO BID PRN, #15 TAB Prov:STEVAN VERAS MD 06/02/24 Tramadol HCl (Tramadol HCl) 50 Mg Tab, 50 MG PO Q6HP PRN, #15 TAB Prov:STEVAN VERAS MD 06/02/24 Amoxicillin & Pot Clavulanate (AUGMENTIN TABLET) 875 Mg Tb, 875 MG PO BID for 7 Days, #14 TAB Prov:STEVAN VERAS MD 02/08/24 Dextromethorphan-Guaifenesin (Robitussin-Dm) 10 Ml Sr, 10 ML PO Q6HP PRN, #120 ML Prov:STEVAN VERAS MD 01/31/24 Hydrocortone (Hydrocortisone 2.5%) 1 Applic Ap, 1 APPLIC OK QHSP PRN, #10 APPLIC Prov:STEVAN VERAS MD 01/31/24 Ondansetron Odt 4MG Tab (ZOFRAN PO) 4 Mg Tb, 4 MG PO TID PRN for 3 Days, #9 TAB 0 Refills ODT TAB-DISSOLVE IN MOUTH, THEN SWALLOW Prov:MALLORY THOMAS MD 01/19/24 Miconazole Nitrate Vaginal (Monistat 7 Combination Pa 100 & 2 mg-% (9Gm)) 1 Kit Kit, 1 KIT VA DAILY, #1 KIT 0 Refills Follow instructions on package insert and take as prescribed. Prov:MALLORY THOMAS MD 01/19/24 Dicyclomine Hcl (BENTYL CAPSULE) 10 Mg Cp, 1 CAP PO TID, #90 CAP 11 Refills Prov:NICHO COELLO EYE PHYSICIAN 01/05/24 Hydrocodone-Acetaminophen (Hydrocodone Bitartrate/AC 5-325 mg) 1 Tab Tab, 1 TAB PO Q6HP PRN, #30 TAB Prov:STEVAN VERAS MD 11/07/23 Loperamide Hcl (Imodium) 2 Mg Cp, 2 MG PO PRN PRN, #30 CAP Prov:STEVAN VERAS MD 11/07/23 Docusate Sodium (Colace) 100 Mg Cap, 1 CAP PO BID, #60 CAP Prov:STEVAN VERAS MD 10/28/23 Pantoprazole Sodium Sesquihydr (Protonix) 40 Mg Tab, 40 MG PO DAILY for 7 Days, #7 TAB Prov:CHANTAL STEWART MD 10/14/23 Reported Medications Guaifenesin-Codeine (Robitussin/Codeine) 10 Ml So, 5 ML PO Q6HR, #120 ML 01/31/24 Duloxetine Hcl (Cymbalta) 60 Mg Cap, 1 CAP PO DAILY, #90 CAP 3 Refills 01/30/24 Oxycodone Hcl (OxyCONTIN ER Tablet) 10 Mg Tb, 10 MG PO TIDP PRN for BREAKTHROUGH PAIN, TAB 10/14/23 Sennosides-Docusate Sodium (Senokot S) 1 Tab Tab, 1 TAB PO BID, #30 TAB 10/14/23 Tizanidine Hydrochloride (Tizanidine Hcl) 4 Mg Tab, 4 MG PO TID, TAB 10/14/23 Alprazolam (Xanax) 1 Mg Tab, 1 TAB PO DAILY PRN, #60 TAB 10/14/23 Gabapentin (Gabapentin) 600 Mg Tab, 1 TAB PO TID, #90 TAB 3 Refills 10/14/23 Lisinopril (Lisinopril) 40 Mg Tab, 1 TAB PO DAILY, #30 TAB 5 Refills 10/14/23 Mode of Arrival: Ambulatory Past Medical History PAST MEDICAL HISTORY: HTN Surgical History: Cholecystectomy, Hernia Repair, Hysterectomy, Tubal Ligation CALL TAKER History: Other Family History Family History: Reviewed,noncontributory to illness Social History Smoker: Cigarettes Alcohol: Denies ETOH Use Drugs: Denies Drug Use Lives In: Home Constitutional: denies: chills, diaphoresis, fatigue, fever, malaise, sweats, weakness, others EENTM: denies: blurred vision, double vision, ear bleeding, ear discharge, ear drainage, ear pain, ear ringing, eye pain, eye redness, hearing loss, mouth pain, mouth swelling, nasal discharge, nose bleeding, nose congestion, nose pain, photophobia, tearing, throat pain, throat swelling, voice changes, others Respiratory: denies: cough, hemoptysis, orthopnea, SOB at rest, shortness of breath, SOB with excertion, stridor, wheezing, others Cardiovascular: denies: chest pain, dizzy spells, diaphoresis, Dyspnea on exertion, edema, irregular heart beat, left arm pain, lightheadedness, palpitations, PND, syncope, others Gastrointestinal: reports: abdominal pain, diarrhea, nausea, vomiting; denies: abdomen distended, blood streaked bowels, constipated, dysphagia, difficulty swallowing, hematemesis, melena, poor appetite, poor fluid intake, rectal bleeding, rectal pain, others Genitourinary: denies: abnormal vagina bleeding, burning, dyspareunia, dysuria, flank pain, frequency, hematuria, incontinence, pain, , vagina discharge, urgency, others Neurological: denies: dizziness, fainting, headache, left sided numbness, left sided weakness, numbness, paresthesia, pre-existing deficit, right sided numbness, right sided weakness, seizure, speech problems, tingling, tremors, weakness, others Musculoskeletal: denies: back pain, gout, joint pain, joint swelling, muscle pain, muscle stiffness, neck pain, others Integumetry: denies: bruises, change in color, change in hair/nails, dryness, laceration, lesions, lumps, rash, wounds, others Allergic/Immunocompromised: denies: Difficulty Healing, Frequent Infections, Hives, Itching, others Hematologic/Lymphatic: denies: anemia, blood clots, easy bleeding, easy bruising, swollen glands, others Endocrine: denies: excessive hunger, excessive sweating, excessive thirst, excessive urination, flushing, intolerance to cold, intolerance to heat, unexplained weight gain, unexplained weight loss, others Psychiatric: denies: anxiety, bipolar disorder, depression, hopeless, panic disorder, schizophrenia, sleepless, suicidal, others All Other Systems: Reviewed and Negative Physical Exam General Appearance: Moderate Distress HEENT: Normal ENT Inspection, Pharynx Normal, TMs Normal Neck: Full Range of Motion, Non-Tender, Normal, Normal Inspection Respiratory: Chest Non-Tender, Lungs Clear, No Accessory Muscle Use, No Respiratory Distress, Normal Breath Sounds Cardiovascular: No Edema, No JVD, No Murmur, No Gallop, Normal Peripheral Pulses, Regular Rate/Rhythm Breast Exam: Deferred Gastrointestinal: No Organomegaly, Non Tender, No Pulsatile Mass, Normal Bowel Sounds, Soft Genitalia: Deferred Pelvic: Deferred Rectal: Deferred Extremities: No calf tenderness, Normal capillary refill, Normal inspection, Normal range of motion, Non-tender, No pedal edema Musculoskeletal : Apperance: Normal Neurologic: Alert, v belt curer II-XII nml as Tested, No Motor Deficits, Normal Affect, Normal Mood, No Sensory Deficits Cerebellar Function: Normal Reflexes: Normal Skin: Dry, Normal Color, Warm Lymphatic: No Adenopathy EKG EKG : Pulse Rate (adult): 78 Shell: Normal Cardiac Rhythm: NSR Block: None Hypertrophy: None ST: Normal Was a procedure done? Was a procedure done?: No GI differential Dx Differential Diagnosis: Bowel Obstruction, Cholangitis, Cholecystitis, Gastritis/PUD, Gastroenteritis, Urolithiasis, Food Poisoning, Bacterial, Viral X-Ray, Labs, Meds, VS Vital Signs Date Time Temp Pulse Resp B/P (MAP) Pulse Ox O2 Delivery O2 Flow Rate FiO2 07/28/24 20:05 70 24 183/108 (133) 99 07/28/24 19:46 70 24 183/108 07/28/24 18:32 17 99 Room Air* 0 21 07/28/24 18:31 80 17 148/106 07/28/24 18:12 80 17 97 Room Air 07/28/24 18:12 98.9 80 17 148/106 (120) 97 98.9 07/28/24 18:04 98.3 79 18 141/90 (107) 98 98.3 07/28/24 16:49 78 07/28/24 16:38 78 07/28/24 16:37 99.6 79 18 151/84 (106) 99 Lab Test 07/28/24 17:11 07/28/24 16:30 Range/Units White Blood Count 10.1 4.4-10.8 10^3/uL Red Blood Count 4.68 4.0-5.20 10^6/uL Hemoglobin 14.3 12.2-16.2 g/dL Hematocrit 42.0 36.0-46.0 % Mean Corpuscular Volume 89.6 80.0-100.0 fL Mean Corpuscular Hemoglobin 30.5 28.0-32.0 pg Mean Corpuscular Hemoglobin Concent 34.0 32.0-36.0 g/dL Red Cell Distribution Width 14.6 H 11.8-14.3 % Platelet Count 335 140-450 10^3/uL Mean Platelet Volume 7.5 6.9-10.8 fL Neutrophils (%) (Auto) 51.5 37.0-80.0 % Lymphocytes (%) (Auto) 39.1 10.0-50.0 % Monocytes (%) (Auto) 6.1 0.0-12.0 % Eosinophils (%) (Auto) 2.1 0.0-7.0 % Basophils (%) (Auto) 1.2 0.0-2.0 % Neutrophils # (Auto) 5.2 1.6-8.6 10 ^3/uL Lymphocytes # (Auto) 4.0 0.4-5.4 10 ^3/uL Monocytes # (Auto) 0.6 0-1.3 10 ^3/uL Eosinophils # (Auto) 0.2 0-0.8 10 ^3/uL Basophils # (Auto) 0.1 0-0.2 10 ^3/uL Nucleated Red Blood Cells 0.0 % Sodium Level 141 136-145 mmol/L Potassium Level 4.0 3.5-5.1 mmol/L Chloride Level 108 H 98-107 mmol/L Carbon Dioxide Level 28 20-31 mmol/L Anion Gap 5 5-15 Blood Urea Nitrogen 16 9-23 mg/dL Creatinine 0.80 0.550-1.02 mg/dL Glomerular Filtration Rate Calc 90 >90 mL/min BUN/Creatinine Ratio 20.0 10.0-20.0 Serum Glucose 88 74-106 mg/dL Calcium Level 9.9 8.7-10.4 mg/dL Total Bilirubin 0.2 0.2-1.0 mg/dL Aspartate Amino Transferase (AST) 13 13-40 U/L Alanine Aminotransferase (ALT) 18 7-40 U/L Alkaline Phosphatase 99 46-116 U/L Total Protein 6.7 5.7-8.2 g/dL Albumin 4.3 3.2-4.8 g/dL Lipase 48 12-53 U/L Urine Color Colorless Yellow Urine Clarity Clear Clear Urine pH 6.5 5.0-9.0 Urine Specific [place] 1.009 1.001-1.035 Urine Protein Negative Negative Urine Ketones Negative Negative Urine Blood Negative Negative /uL Urine Nitrite Negative Negative Urine Bilirubin Negative Negative Urine Urobilinogen Normal Negative mg/dL Urine Leukocyte Esterase Negative Negative /uL Urine RBC 1 0 - 4 /hpf Urine WBC 1 0 - 5 /hpf Urine Squamous Epithelial Cells Few <5 /hpf Urine Bacteria Few H None Seen /hpf Urine Glucose Normal Normal mg/dL Current Medications Medications (Trade) Dose Ordered Sig/Pedro Route Start Time Stop Time Status Last Admin Ondansetron HCl (Zofran) 4 mg ONCE ONCE IV 07/28/24 16:45 07/28/24 16:46 DC 07/28/24 18:31 Morphine Sulfate 4 mg ONCE ONCE IV 07/28/24 16:45 07/28/24 16:46 DC 07/28/24 18:31 Sodium Chloride 500 ml @ 500 mls/hr Q1H ONCE IVB 07/28/24 16:45 07/28/24 17:44 DC 07/28/24 18:34 Prochlorperazine Edisylate (Compazine Inj) 10 mg ONCE ONCE IV 07/28/24 19:45 07/28/24 19:46 DC 07/28/24 19:46 CT ABD PEL: FINDINGS: Lower Thorax: Linear bibasilar scarring or atelectasis. Normal-sized heart. Liver and Biliary system: Normal-sized liver. There are multiple well-defined hypodense lesions in both lobes of the liver likely cysts although not optimally evaluated without contrast. Prior cholecystectomy. No biliary ductal dilatation. Spleen: Unremarkable. Adrenal Glands and Kidneys: Normal adrenal glands aside from a Tiny left adrenal gland myelolipoma. Tiny nonobstructing right greater than left renal calculi. No hydronephrosis. Pancreas and Retroperitoneum: Unremarkable. Aorta and Major Vessels: Aortoiliac vessels are normal in caliber containing mild calcified atherosclerotic plaque. Bowel, Mesentery and Peritoneal space: Prior distal colon resection with upper rectal anastomosis. Mild occasional colonic diverticulosis. 4 There is an additional right lower quadrant small bowel anastomosis. There is no free air or fluid collection. Pelvis: Prior hysterectomy. Urinary bladder is mildly distended. There is no pelvic lymphadenopathy. Abdominal wall and Osseous Structures: Prior midline laparotomy with scarring. There is a midline / to the left midline subincisional ventral abdominal hernia above and at the level of the umbilicus. Prior mesh repair of the right anterior abdominal wall in the lower quadrant where there was previously an ileostomy. L inear scarring in the right lower quadrant abdominal wall from prior ileostomy. Multilevel lower thoracic and lumbar spondylosis. Grade 1 anterolisthesis at L4- L5. No destructive osseous lesion. IMPRESSION: 1. Prior distal colon resection with upper rectal anastomosis as well as a right lower quadrant small bowel anastomosis. No bowel obstruction. 2. Prior mesh repair of the right lower quadrant anterior abdominal wall where there was previously an ileostomy. 3. Tiny nonobstructing [id number]-[id number]-left renal calculi. 4. Occasional colonic diverticulosis. ATED BY: YEFRI JIMENEZ MD DICTATED DATE/TIME: 07/28/241751 SIGNED BY: YEFRI JIMENEZ MD SIGNED DATE/TIME: 07/28/241751 CC: The urine test is negative The patient's CBC and chemistry panel are within normal limits The patient was being admitted at this time. Images Reviewed?: Images reviewed and evaluated by me Time of 1ST Reevaluation: 17:10 Reevaluation 1ST: Unchanged Patient Education/Counseling: Diagnosis, Treatment, Prognosis Family Education/Counseling: No Family Present Departure 1 Departure Time of Disposition: 20:20 Impression: Primary Impression: Intractable abdominal pain Disposition: ADMITTED INPATIENT Admit to: Med Surg Condition: Fair Critical Care Note Critical Care Time?: No Stability Stability form required: Yes Unstable for transfer: ED Physician Assesment (Clinical assesment) Heart Score Heart Score: Heart Score Response (Comments) Value History N/A 0 EKG N/A 0 Age N/A 0 Risk Factors N/A 0 Troponin N/A 0 Total 0 I personally scribed for FRANKO ROSE MD ([email or web address]) on 07/28/24 at 16:49. Electronically submitted by Zeenat Huizar ([email or web address]). I personally scribed for FRANKO ROSE MD ([email or web address]) on 07/28/24 at 16:59. Electronically submitted by Zeenat Huizar ([email or web address]). I personally scribed for FRANKO ROSE MD ([email or web address]) on 07/28/24 at 18:30. Electronically submitted by Zeenat Huizar ([email or web address]). I personally scribed for FRANKO ROSE MD ([email or web address]) on 07/28/24 at 18:31. Electronically submitted by Zeenat Huizar ([email or web address]). FRANKO ROSE MD Jul 28, 2024 16:49
[2024-07-28 17:13] LABS: Urine Bacteria FEW /hpf (None Seen); Urine Blood Negative /uL (Negative); Urine Clarity Clear (Clear); Urine Color Colorless (Yellow); Urine Protein, UAD Negative (Negative); Urine Specific Gravity 1.009 (1.001-1.035); Urine Squamous Epithelial Cell FEW /hpf (<5); Urine Urobilinogen Normal (Negative); Urine WBC 1 /hpf (0 - 5); Urine pH 6.5 (5.0-9.0)
[2024-07-28 17:22] LABS: Basophils # (auto) 0.1 10 ^3/uL (0-0.2); Basophils % (auto) 1.2 % (0.0-2.0); Eosinophils # (auto) 0.2 10 ^3/uL (0-0.8); Eosinophils % (auto) 2.1 % (0.0-7.0); Hemoglobin 14.3 g/dL (12.2-16.2); Lymphocytes % (auto) 39.1 % (10.0-50.0); Mean Corpuscular Hemoglobin 30.5 pg (28.0-32.0); Mean Corpuscular Volume 89.6 fL (80.0-100.0); Monocytes # (auto) 0.6 10 ^3/uL (0-1.3); Monocytes % (auto) 6.1 % (0.0-12.0); Neutrophils # (auto) 5.2 10 ^3/uL (1.6-8.6); Neutrophils % (auto) 51.5 % (37.0-80.0); Platelet Count (auto) 335 10^3/uL (140-450); Red Blood Cells 4.68 10^6/uL (4.0-5.20); Red Cell Distribution Width 14.6 % (11.8-14.3); White Blood Cell 10.1 10^3/uL (4.4-10.8)
[2024-07-28 17:38] LABS: Alanine Aminotransferase 18 U/L (7-40); Albumin 4.3 g/dL (3.2-4.8); Alkaline Phosphatase 99 U/L (46-116); Anion Gap 5 (5-15); Blood Urea Nitrogen 16 mg/dL (9-23); Calcium 9.9 mg/dL (8.7-10.4); Carbon Dioxide 28 mmol/L (20-31); Glucose 88 mg/dL (74-106); Lipase 48 U/L (12-53); Sodium 141 mmol/L (136-145)
[2024-07-28 17:39] LABS: Total Protein 6.7 g/dL (5.7-8.2)
--- NOTE | 2024-07-28 17:55 | DVH ---
CLINICAL HISTORY: right abd pain TECHNIQUE: CT of the abdomen and pelvis was performed without intravenous contrast. This exam was performed acco rding to our departmental dose optimization program. Up-to-date CT equipment and radiation dose reduc tion techniques are utilized as appropriate. COMPARISON: CT CT AB PEL WO CON-NO ORAL OR IV on DOS: 07/12/24, , FINDINGS: Lower Thorax: Linear bibasilar scarring or atelectasis. Normal-sized heart. Liver and Biliary system: Normal-sized liver. There are multiple well-defined hypodense lesions in merari th lobes of the liver likely cysts although not optimally evaluated without contrast. Prior cholecyst ectomy. No biliary ductal dilatation. Spleen: Unremarkable. Adrenal Glands and Kidneys: Normal adrenal glands aside from a Tiny left adrenal gland myelolipoma. T iny nonobstructing right greater than left renal calculi. No hydronephrosis. Pancreas and Retroperitoneum: Unremarkable. Aorta and Major Vessels: Aortoiliac vessels are normal in caliber containing mild calcified atheroscl erotic plaque. Bowel, Mesentery and Peritoneal space: Prior distal colon resection with upper rectal anastomosis. Mi ld occasional colonic diverticulosis. 4 There is an additional right lower quadrant small bowel anast omosis. There is no free air or fluid collection. Pelvis: Prior hysterectomy. Urinary bladder is mildly distended. There is no pelvic lymphadenopathy. Abdominal wall and Osseous Structures: Prior midline laparotomy with scarring. There is a midline / t o the left midline subincisional ventral abdominal hernia above and at the level of the umbilicus. Pr ior mesh repair of the right anterior abdominal wall in the lower quadrant where there was previously an ileostomy. Linear scarring in the right lower quadrant abdominal wall from prior ileostomy. Multi level lower thoracic and lumbar spondylosis. Grade 1 anterolisthesis at L4-L5. No destructive osseous lesion. IMPRESSION: 1. Prior distal colon resection with upper rectal anastomosis as well as a right lower quadrant small bowel anastomosis. No bowel obstruction. 2. Prior mesh repair of the right lower quadrant anterior abdominal wall where there was previously a n ileostomy. 3. Tiny nonobstructing pzssl-[id number]-mowf-left renal calculi. 4. Occasional colonic diverticulosis.
[2024-07-28 18:05] LABS: Aspartate Aminotransferase 13 U/L (13-40); Bilirubin, Total 0.2 mg/dL (0.2-1.0); Chloride 108 mmol/L (98-107)
[2024-07-28 18:12] VITALS: TEMP 98.9
[2024-07-28] MEDS: MORPHINE SULFATE 4 MG/ML SYR/VIAL IV ONE (18:31)
[2024-07-28] MEDS: ONDANSETRON HCL 4 MG/2 ML VIAL IV ONE (18:31)
[2024-07-28 18:32] VITALS: RESP 17; O2SAT 99
[2024-07-28] MEDS: SODIUM CHLORIDE 0.9% 500 ML IVB ONE (18:34)
[2024-07-28] MEDS: PROCHLORPERAZINE EDISYLATE 5 MG/ML 2ML VIAL IV ONE (19:46)
[2024-07-28 20:05] VITALS: BP 183/108; PULSE 70; RESP 24; O2SAT 99
== END 2024-07-28 23:02 | disposition left against medical advice (07) ==
LOC: ER 16:02
DX: R10.31 Right lower quadrant pain (principal); F17.210 Nicotine dependence, cigarettes, uncomplicated; I10 Essential (primary) hypertension; Z79.899 Other long term (current) drug therapy; Z90.49 Acquired absence of other specified parts of digestive tract; Z90.710 Acquired absence of both cervix and uterus; Z98.890 Other specified postprocedural states
CPT/HCPCS: 36415; 74176; 80053; 81001; 83690; 85025; 93005; 96361; 96374; 96375; 99285; J0780; J2270; J2405; J7040

== ENCOUNTER 2024-08-07 10:00 | Inpatient (IN) | payer OTHER, MEDICAID ==
[~2024-08-07] VITALS: Ht 149.9 cm; Wt 80.7 kg
[2024-08-07 11:05] LABS: Urine Bacteria FEW /hpf (None Seen); Urine Blood Negative /uL (Negative); Urine Clarity Clear (Clear); Urine Color Yellow (Yellow); Urine Mucus FEW (None Seen); Urine Protein, UAD TRACE (Negative); Urine Specific Gravity 1.029 (1.001-1.035); Urine Squamous Epithelial Cell FEW /hpf (<5); Urine Urobilinogen Normal (Negative); Urine WBC 3 /HPF (0-5); Urine pH 5.5 (5.0-9.0)
[2024-08-07] MEDS: DONNATAL 5ml ORAL Elix (BELLADONNA ALK-PHENOBARB) PO ONE (11:15)
--- NOTE | 2024-08-07 11:22 | ED.PDOC ---
GI ASSESSMENT HPI Comments 49-year-old female presents with a chief complaint of abdominal pain and nausea x 1 week. Patient has been seen here in the ER multiple times and typically elopes after receiving pain medication. Patient last states that she was seen here x 1 week ago and eloped because "the wait was too long". Patient reports that her abdominal pain is localized diffusely, non-radiating, describes as aching, and rates her pain a 10/10. Patient denies any new trauma or injuries since last week. Patient denies diarrhea, and active vomiting. Patient is tearful in triage. Chief Complaint: Abdominal Pain Time Seen by MD: 11:10 Primary Care Provider: [facility] Notes: Medications, Allergies Allergies: Coded Allergies: NO KNOWN ALLERGIES (Unverified , 05/10/14) Home Meds Active Scripts Prednisone (Prednisone) 20 Mg Tab, 20 MG PO DAILY for 5 Days, #5 MG Prov:NICHO COELLOP 07/12/24 Tamsulosin Hcl (Flomax) 0.4 Mg Cap, 1 CAP PO DAILY for 10 Days, #10 CAP 11 Refills Prov:NICHO COELLOP 07/12/24 Naproxen (NAPROSYN TABLET) 500 Mg Tb, 1 TAB PO BID PRN, #60 TAB 1 Refill Prov:NICHO COELLO [facility] 07/12/24 Polyethylene Glycol 3350 (Miralax) 17 Gm Pow, 17 GM PO BIDPRN PRN for 2 Days, #4 POW Prov:GISSEL RAMOS MD 06/22/24 Alprazolam (Xanax) 0.25 Mg Tb, 1 TAB PO BID PRN, #15 TAB Prov:STEVAN VERAS MD 06/02/24 Tramadol HCl (Tramadol HCl) 50 Mg Tab, 50 MG PO Q6HP PRN, #15 TAB Prov:STEVAN VERAS MD 06/02/24 Amoxicillin & Pot Clavulanate (AUGMENTIN TABLET) 875 Mg Tb, 875 MG PO BID for 7 Days, #14 TAB Prov:STEVAN VERAS MD 02/08/24 Dextromethorphan-Guaifenesin (Robitussin-Dm) 10 Ml Sr, 10 ML PO Q6HP PRN, #120 ML Prov:STEVAN VERAS MD 01/31/24 Hydrocortone (Hydrocortisone 2.5%) 1 Applic Ap, 1 APPLIC [place] QHSP PRN, #10 APPLIC Prov:STEVAN VERAS MD 01/31/24 Ondansetron Odt 4MG Tab (ZOFRAN PO) 4 Mg Tb, 4 MG PO TID PRN for 3 Days, #9 TAB 0 Refills ODT TAB-DISSOLVE IN MOUTH, THEN SWALLOW Prov:MALLORY THOMAS MD 01/19/24 Miconazole Nitrate Vaginal (Monistat 7 Combination Pa 100 & 2 mg-% (9Gm)) 1 Kit Kit, 1 KIT [place] DAILY, #1 KIT 0 Refills Follow instructions on package insert and take as prescribed. Prov:MALLORY THOMAS MD 01/19/24 Dicyclomine Hcl (BENTYL CAPSULE) 10 Mg Cp, 1 CAP PO TID, #90 CAP 11 Refills Prov:NICHO COELLO [employer] 01/05/24 Hydrocodone-Acetaminophen (Hydrocodone Bitartrate/AC 5-325 mg) 1 Tab Tab, 1 TAB PO Q6HP PRN, #30 TAB Prov:STEVAN VERAS MD 11/07/23 Loperamide Hcl (Imodium) 2 Mg Cp, 2 MG PO PRN PRN, #30 CAP Prov:STEVAN VERAS MD 11/07/23 Docusate Sodium (Colace) 100 Mg Cap, 1 CAP PO BID, #60 CAP Prov:STEVAN VERAS MD 10/28/23 Pantoprazole Sodium Sesquihydr (Protonix) 40 Mg Tab, 40 MG PO DAILY for 7 Days, #7 TAB Prov:CHANTAL STEWART MD 10/14/23 Reported Medications Guaifenesin-Codeine (Robitussin/Codeine) 10 Ml So, 5 ML PO Q6HR, #120 ML 01/31/24 Duloxetine Hcl (Cymbalta) 60 Mg Cap, 1 CAP PO DAILY, #90 CAP 3 Refills 01/30/24 Oxycodone Hcl (OxyCONTIN ER Tablet) 10 Mg Tb, 10 MG PO TIDP PRN for BREAKTHROUGH PAIN, TAB 10/14/23 Sennosides-Docusate Sodium (Senokot S) 1 Tab Tab, 1 TAB PO BID, #30 TAB 10/14/23 Tizanidine Hydrochloride (Tizanidine Hcl) 4 Mg Tab, 4 MG PO TID, TAB 10/14/23 Alprazolam (Xanax) 1 Mg Tab, 1 TAB PO DAILY PRN, #60 TAB 10/14/23 Gabapentin (Gabapentin) 600 Mg Tab, 1 TAB PO TID, #90 TAB 3 Refills 10/14/23 Lisinopril (Lisinopril) 40 Mg Tab, 1 TAB PO DAILY, #30 TAB 5 Refills 10/14/23 Information Source: Patient Mode of Arrival: Ambulatory Timing: Days Duration: Intermittent Prehospital treatment: None Quality: Aching Vomitus: None Stool: Normal Severity: Moderate Recent: None Pain Location: Diffuse Past Medical History PAST MEDICAL HISTORY: HTN Surgical History: Cholecystectomy, Hernia Repair, Hysterectomy, 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 Family History Family History: Reviewed,noncontributory to illness Social History Smoker: Cigarettes Alcohol: Denies ETOH Use Drugs: Denies Drug Use Lives In: Home Constitutional: denies: chills, diaphoresis, fatigue, fever, malaise, sweats, weakness, others EENTM: denies: blurred vision, double vision, ear bleeding, ear discharge, ear drainage, ear pain, ear ringing, eye pain, eye redness, hearing loss, mouth pain, mouth swelling, nasal discharge, nose bleeding, nose congestion, nose pain, photophobia, tearing, throat pain, throat swelling, voice changes, others Respiratory: denies: cough, hemoptysis, orthopnea, SOB at rest, shortness of breath, SOB with excertion, stridor, wheezing, others Cardiovascular: denies: chest pain, dizzy spells, diaphoresis, Dyspnea on exertion, edema, irregular heart beat, left arm pain, lightheadedness, palpitations, PND, syncope, others Gastrointestinal: reports: abdominal pain, nausea; denies: abdomen distended, blood streaked bowels, constipated, diarrhea, dysphagia, difficulty swallowing, hematemesis, melena, poor appetite, poor fluid intake, rectal bleeding, rectal pain, vomiting, others Genitourinary: denies: abnormal vagina bleeding, burning, dyspareunia, dysuria, flank pain, frequency, hematuria, incontinence, pain, , vagina discharge, urgency, others Neurological: denies: dizziness, fainting, headache, left sided numbness, left sided weakness, numbness, paresthesia, pre-existing deficit, right sided numbness, right sided weakness, seizure, speech problems, tingling, tremors, weakness, others Musculoskeletal: denies: back pain, gout, joint pain, joint swelling, muscle pain, muscle stiffness, neck pain, others Integumetry: denies: bruises, change in color, change in hair/nails, dryness, laceration, lesions, lumps, rash, wounds, others Allergic/Immunocompromised: denies: Difficulty Healing, Frequent Infections, Hives, Itching, others Hematologic/Lymphatic: denies: anemia, blood clots, easy bleeding, easy bruising, swollen glands, others Endocrine: denies: excessive hunger, excessive sweating, excessive thirst, excessive urination, flushing, intolerance to cold, intolerance to heat, unexplained weight gain, unexplained weight loss, others Psychiatric: denies: anxiety, bipolar disorder, depression, hopeless, panic disorder, schizophrenia, sleepless, suicidal, others All Other Systems: Reviewed and Negative Physical Exam General Appearance: No Apparent Distress, Normal HEENT: Normal ENT Inspection, Pharynx Normal, TMs Normal Neck: Full Range of Motion, Normal, Normal Inspection, Other (T/L SPINE TENDERNESS) Respiratory: Chest Non-Tender, Lungs Clear, No Accessory Muscle Use, No Respiratory Distress, Normal Breath Sounds Cardiovascular: No Edema, No JVD, No Murmur, No Gallop, Normal Peripheral Pulses, Regular Rate/Rhythm Breast Exam: Deferred Gastrointestinal: Diffuse, No Organomegaly, No Pulsatile Mass, Normal Bowel Sounds, Soft, Tenderness, Other (Small ventral hernia that is easily reducible.) Genitalia: Deferred Pelvic: Deferred Rectal: Deferred Extremities: No calf tenderness, Normal capillary refill, Normal inspection, Normal range of motion, Non-tender, No pedal edema Musculoskeletal : Apperance: Normal Neurologic: Alert, 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 Was a procedure done?: No GI differential Dx Differential Diagnosis: AAA, Appendicitis, Aortic dissection, Cholecystitis, Constipation, Diverticular disease, Gastroenteritis, Hernia, Inflammatory BD, Pancreatitis, Ischemic Bowel X-Ray, Labs, Meds, VS Vital Signs Date Time Temp Pulse Resp B/P (MAP) Pulse Ox O2 Delivery O2 Flow Rate FiO2 08/07/24 13:51 70 17 114/60 08/07/24 13:21 67 17 117/79 08/07/24 13:00 Room Air* 0 21 08/07/24 12:59 98.0 73 19 133/85 (101) 94 98.0 08/07/24 12:49 73 19 133/85 08/07/24 12:11 77 16 127/91 08/07/24 12:01 77 16 98 Room Air 08/07/24 12:01 97.7 77 16 127/91 (103) 98 97.7 08/07/24 11:09 97.7 74 16 147/76 (99) 96 97.7 08/07/24 10:10 98.4 81 18 131/78 (95) 98 Lab Test 08/07/24 11:11 08/07/24 10:50 Range/Units White Blood Count 7.9 4.4-10.8 10^3/uL Red Blood Count 4.83 4.0-5.20 10^6/uL Hemoglobin 14.9 12.2-16.2 g/dL Hematocrit 43.9 36.0-46.0 % Mean Corpuscular Volume 90.7 80.0-100.0 fL Mean Corpuscular Hemoglobin 30.8 28.0-32.0 pg Mean Corpuscular Hemoglobin Concent 33.9 32.0-36.0 g/dL Red Cell Distribution Width 14.8 H 11.8-14.3 % Platelet Count 335 140-450 10^3/uL Mean Platelet Volume 7.8 6.9-10.8 fL Neutrophils (%) (Auto) 42.8 37.0-80.0 % Lymphocytes (%) (Auto) 48.0 10.0-50.0 % Monocytes (%) (Auto) 6.2 0.0-12.0 % Eosinophils (%) (Auto) 2.7 0.0-7.0 % Basophils (%) (Auto) 0.3 0.0-2.0 % Neutrophils # (Auto) 3.4 1.6-8.6 10 ^3/uL Lymphocytes # (Auto) 3.8 0.4-5.4 10 ^3/uL Monocytes # (Auto) 0.5 0-1.3 10 ^3/uL Eosinophils # (Auto) 0.2 0-0.8 10 ^3/uL Basophils # (Auto) 0 0-0.2 10 ^3/uL Nucleated Red Blood Cells 0.1 % Sodium Level 140 136-145 mmol/L Potassium Level 4.3 3.5-5.1 mmol/L Chloride Level 109 H 98-107 mmol/L Carbon Dioxide Level 26 20-31 mmol/L Anion Gap 5 5-15 Blood Urea Nitrogen 12 9-23 mg/dL Creatinine 0.63 0.550-1.02 mg/dL Glomerular Filtration Rate Calc 108 >90 mL/min BUN/Creatinine Ratio 19.0 10.0-20.0 Serum Glucose 105 74-106 mg/dL Calcium Level 10.0 8.7-10.4 mg/dL Total Bilirubin 0.3 0.2-1.0 mg/dL Aspartate Amino Transferase (AST) 14 13-40 U/L Alanine Aminotransferase (ALT) 19 7-40 U/L Alkaline Phosphatase 101 46-116 U/L Total Protein 7.0 5.7-8.2 g/dL Albumin 4.3 3.2-4.8 g/dL Lipase 41 12-53 U/L Urine Color Yellow Yellow Urine Clarity Clear Clear Urine pH 5.5 5.0-9.0 Urine Specific [place] 1.029 1.001-1.035 Urine Protein Trace H Negative Urine Ketones Negative Negative Urine Blood Negative Negative /uL Urine Nitrite Negative Negative Urine Bilirubin Negative Negative Urine Urobilinogen Normal Negative mg/dL Urine Leukocyte Esterase Negative Negative /uL Urine RBC 2 0 - 4 /hpf Urine Microscopic WBC 3 0-5 /HPF Urine Squamous Epithelial Cells Few <5 /hpf Urine Bacteria Few H None Seen /hpf Urine Mucus Few None Seen Urine Glucose Normal Normal mg/dL Current Medications Medications (Trade) Dose Ordered Sig/Pedro Route Start Time Stop Time Status Last Admin Ondansetron HCl (Zofran) 4 mg ONCE ONCE IV 08/07/24 11:15 08/07/24 11:16 DC 08/07/24 12:13 Sodium Chloride 1,000 ml @ 1,000 mls/hr Q1H ONCE IVB 08/07/24 11:15 08/07/24 12:14 DC 08/07/24 12:13 Morphine Sulfate 4 mg ONCE ONCE IV 08/07/24 11:15 08/07/24 11:16 DC 08/07/24 12:11 Al Hydrox/Mg Hydrox/Simethicone (Maalox Plus) 30 ml ONCE ONCE PO 08/07/24 11:15 08/07/24 11:16 DC 08/07/24 12:19 Belladonna Alkaloids/ Phenobarbital ( Elixir) 5 ml ONCE ONCE PO 08/07/24 11:15 08/07/24 11:16 DC 08/07/24 11:15 Lidocaine HCl (Xylocaine 2% Viscous) 15 ml ONCE ONCE PO 08/07/24 11:15 08/07/24 11:16 DC 08/07/24 12:19 Hydromorphone HCl (Dilaudid Injection) 0.5 mg ONCE ONCE IV 08/07/24 13:15 08/07/24 13:16 DC 08/07/24 13:21 Diphenhydramine HCl (Benadryl Injection) 25 mg ONCE ONCE IV 08/07/24 14:00 08/07/24 14:01 DC 08/07/24 14:08 PATIENT: BEVERLY SPARSKCCT: [id number]: [id number] : 1975 LOC: ER ROOM / BED: / AGE / SEX: 49 / F ADM STATUS: REG ER SERVICE 1113 ORDERING PHYSICIAN: DONALD FLORES MD PROCEDURE(s): ABPL - CT AB PEL WO CON-NO ORAL OR IV REASON: ABD PAIN ORDER NUMBER(s): [id number], ACCESSION NUMBER(s): [id number] EXAM: CT Abdomen and Pelvis Without Intravenous Contrast CLINICAL INDICATION: ABD PAIN TECHNIQUE: Axial computed tomography images of the abdomen and pelvis without intravenous contrast. This CT exam was performed using one or more of the following dose reduction techniques: automated exposure control, adjustment of the mA and/or kV according to patient size, and/or use of iterative reconstruction technique. RADIATION DOSE: CTDlvol= 18.5 mGy, DLP= 916.86 mGy-cm COMPARISON: CT CT AB PEL WO CON-NO ORAL OR IV on DOS: 07/28/24, CT CT AB PEL WO CON-NO ORAL OR IV on DOS: 07/12/24, CT CT AB PEL WO CON-NO ORAL OR IV on DOS: 06/22/24, CT CT ABD PELVIS W CON-ORAL IV on DOS: 02/06/24, CT CT AB PEL WO CON- NO ORAL OR IV on DOS: 02/03/24 FINDINGS: LUNG BASES: Unremarkable. No mass. No consolidation. ABDOMEN: LIVER: Multiple hypodense lesions of the liver, likely cysts. GALLBLADDER AND BILE DUCTS: Gallbladder is surgically absent. No ductal dilation. PANCREAS: Unremarkable. No ductal dilation. SPLEEN: Unremarkable. No splenomegaly. ADRENALS: Unremarkable. No mass. KIDNEYS AND URETERS: Unremarkable. No obstructing stones. No hydronephrosis. STOMACH AND BOWEL: Mild constipation. No bowel obstruction or pneumoperitoneum. Evidence of prior bowel resection and reanastomosis. No mucosal thickening. PELVIS: APPENDIX: No findings to suggest acute appendicitis. BLADDER: Unremarkable. No stones. REPRODUCTIVE: Unremarkable as visualized. ABDOMEN and PELVIS: INTRAPERITONEAL SPACE: See above. BONES/JOINTS: No acute fracture. No dislocation. SOFT TISSUES: Small anterior ventral hernia containing fat of the lower abdomen. VASCULATURE: Unremarkable. No abdominal aortic aneurysm. LYMPH NODES: Unremarkable. No enlarged lymph nodes. OTHER FINDINGS: . . IMPRESSION: 1. Mild constipation. No bowel obstruction or pneumoperitoneum. 2. Small anterior ventral hernia containing fat of the lower abdomen. ATED BY: BARBRA MILIAN MD DICTATED DATE/TIME: 08/07/24 115 SIGNED BY: BARBRA MILIAN MD SIGNED DATE/TIME: 08/07/24 1151 49-year-old female presents here with abdominal pain she states it is throughout her stomach and into her back. On my examination she appears to be in significant distress. CT abdomen pelvis was performed with demonstrates mild constipation and also small anterior ventral hernia. I do not suspect the hernia is strangulated or incarcerated as it is easily reducible. Blood work has been done including a CBC CMP which slurred largely also unremarkable. Urine without evidence of infection. I have given her multiple doses of narcotics however she continues to be in pain. At this time the exact cause of her pain is unclear however patient continues to report significant pain. At this time Will admit patient for pain control and further observation.. Time of 1ST Reevaluation: 11:40 Reevaluation 1ST: Unchanged Patient Education/Counseling: Diagnosis, Treatment, Prognosis Family Education/Counseling: Diagnosis, Treatment, Prognosis Departure 1 Departure Time of Disposition: 13:10 Impression: Primary Impression: Abdominal pain Qualified Codes: R10.84 - Generalized abdominal pain Disposition: 01 HOME / SELF CARE / HOMELESS Condition: Stable Discharged With: Self Critical Care Note Critical Care Time?: No Stability Stability form required: No I personally scribed for DONALD FLORES MD ([email or web address]) on 08/07/24 at 11:22. Electronically submitted by Michael Cardoso ([email or web address]). I personally scribed for DONALD FLORES MD ([email or web address]) on 08/07/24 at 12:03. Electronically submitted by Michael Cardoso ([email or web address]). I personally scribed for DONALD FLORES MD ([email or web address]) on 08/07/24 at 12:16. Electronically submitted by Michael Cardoso ([email or web address]). DONALD FLORES MD Aug 07, 2024 11:22
[2024-08-07 11:28] LABS: Basophils # (auto) 0 10 ^3/uL (0-0.2); Basophils % (auto) 0.3 % (0.0-2.0); Eosinophils # (auto) 0.2 10 ^3/uL (0-0.8); Eosinophils % (auto) 2.7 % (0.0-7.0); Hematocrit 43.9 % (36.0-46.0); Hemoglobin 14.9 g/dL (12.2-16.2); Lymphocytes # (auto) 3.8 10 ^3/uL (0.4-5.4); Mean Corpuscular Hemoglobin 30.8 pg (28.0-32.0); Mean Corpuscular Hgb Conc. 33.9 g/dL (32.0-36.0); Mean Corpuscular Volume 90.7 fL (80.0-100.0); Monocytes # (auto) 0.5 10 ^3/uL (0-1.3); Monocytes % (auto) 6.2 % (0.0-12.0); Neutrophils # (auto) 3.4 10 ^3/uL (1.6-8.6); Neutrophils % (auto) 42.8 % (37.0-80.0); Nucleated Red Blood Cells % 0.1 %; Platelet Count (auto) 335 10^3/uL (140-450); Red Blood Cells 4.83 10^6/uL (4.0-5.20); Red Cell Distribution Width 14.8 % (11.8-14.3); White Blood Cell 7.9 10^3/uL (4.4-10.8)
--- NOTE | 2024-08-07 11:54 | DVH ---
EXAM: CT Abdomen and Pelvis Without Intravenous Contrast CLINICAL INDICATION: ABD PAIN TECHNIQUE: Axial computed tomography images of the abdomen and pelvis without intravenous contrast. This CT exam was performed using one or more of the following dose reduction techniques: automated exposure control, adjustment of the mA and/or kV according to patient size, and/or use of iterative r econstruction technique. RADIATION DOSE: CTDlvol= 18.5 mGy, DLP= 916.86 mGy-cm COMPARISON: CT CT AB PEL WO CON-NO ORAL OR IV on DOS: 07/28/24, CT CT AB PEL WO CON-NO ORAL OR IV on DOS: 07/12/24, CT CT AB PEL WO CON-NO ORAL OR IV on DOS: 06/22/24, CT CT ABD PELVIS W CON-ORAL IV on DOS: 02/06/24, CT CT AB PEL WO CON-NO ORAL OR IV on DOS: 02/03/24 FINDINGS: LUNG BASES: Unremarkable. No mass. No consolidation. ABDOMEN: LIVER: Multiple hypodense lesions of the liver, likely cysts. GALLBLADDER AND BILE DUCTS: Gallbladder is surgically absent. No ductal dilation. PANCREAS: Unremarkable. No ductal dilation. SPLEEN: Unremarkable. No splenomegaly. ADRENALS: Unremarkable. No mass. KIDNEYS AND URETERS: Unremarkable. No obstructing stones. No hydronephrosis. STOMACH AND BOWEL: Mild constipation. No bowel obstruction or pneumoperitoneum. Evidence of prior b owel resection and reanastomosis. No mucosal thickening. PELVIS: APPENDIX: No findings to suggest acute appendicitis. BLADDER: Unremarkable. No stones. REPRODUCTIVE: Unremarkable as visualized. ABDOMEN and PELVIS: INTRAPERITONEAL SPACE: See above. BONES/JOINTS: No acute fracture. No dislocation. SOFT TISSUES: Small anterior ventral hernia containing fat of the lower abdomen. VASCULATURE: Unremarkable. No abdominal aortic aneurysm. LYMPH NODES: Unremarkable. No enlarged lymph nodes. OTHER FINDINGS: . . IMPRESSION: 1. Mild constipation. No bowel obstruction or pneumoperitoneum. 2. Small anterior ventral hernia containing fat of the lower abdomen.
[2024-08-07 12:01] LABS: Alanine Aminotransferase 19 U/L (7-40); Albumin 4.3 g/dL (3.2-4.8); Alkaline Phosphatase 101 U/L (46-116); Anion Gap 5 (5-15); Aspartate Aminotransferase 14 U/L (13-40); Bilirubin, Total 0.3 mg/dL (0.2-1.0); Blood Urea Nitrogen 12 mg/dL (9-23); Carbon Dioxide 26 mmol/L (20-31); Glucose 105 mg/dL (74-106); Lipase 41 U/L (12-53); Potassium 4.3 mmol/L (3.5-5.1); Sodium 140 mmol/L (136-145)
[2024-08-07 12:10] LABS: Chloride 109 mmol/L (98-107)
[2024-08-07] MEDS: MORPHINE SULFATE 4 MG/ML SYR/VIAL IV ONE (12:11)
[2024-08-07] MEDS: SODIUM CHLORIDE 0.9% 1,000 ML IVB ONE (12:13)
[2024-08-07] MEDS: ONDANSETRON HCL 4 MG/2 ML VIAL IV ONE (12:13)
[2024-08-07] MEDS: LIDOCAINE VISCOUS 2% 15ML UD PO ONE (12:19)
[2024-08-07] MEDS: MAALOX PLUS or MAALOX 30 ML PO ONE (12:19)
[2024-08-07] MEDS ORDERED: MORPHINE SULFATE 4 MG/ML SYR/VIAL IV ONE (13:15)
[2024-08-07] MEDS: HYDROmorphone HCL 2 MG/ML VL/or syr IV ONE (13:21)
[2024-08-07] MEDS: diphenhdrAMINE HCL 50 MG/1 ML VL IV ONE (14:08)
[2024-08-07] MEDS ORDERED: TAMS0.4C39 PO (16:33)
[2024-08-07] MEDS ORDERED: ALPR0.255 PO (16:33)
[2024-08-07] MEDS ORDERED: IBAN1TAB2 PO (16:33)
[2024-08-07] MEDS ORDERED: FAMO40TA7 PO (16:33)
[2024-08-07] MEDS ORDERED: LOS25T PO (16:33)
--- NOTE | 2024-08-07 16:41 | DVHHP2 ---
History of Present Illness Reason for Visit: Abdominal pain History of Present Illness Miri Schmitz is a 49-year-old female with past medical history of hypertension, colostomy reversal, cholecystectomy, hernia repair, hysterectomy, and tubal ligation who presents to the ED for abdominal pain, nausea, vomiting, and diarrhea x3 days. Patient reports that her pain is pressure-like constant and 10/10. She reports that taking a warm bath helps with the pain and there are no triggering factors. Patient denies any chest pain, shortness of breath, fever, chills, flank pain, lightheadedness, weakness, dizziness, and recent sick contacts or recent illnesses. Cardiovascular: HTN Past Surgical History: Cholecystectomy, Hysterectomy, Hernia Repair, Other (Colostomy reversal), Tubal Ligation Family History: DM, Other (Dad with hypertension, heart disease, and TB mom with hypertension and heart disease) Smoke: <1 pack per day ALCOHOL: none Drugs: None Lives: with Family Domestic Violence: Neg Review of Systems Constitutional: No: Fever, Chills, Sweats, Weakness, Malaise, Other Eyes: No: Pain, Vision change, Conjunctivae inflammation, Eyelid inflammation, Other, Redness Respiratory: No: Cough, Dry, Shortness of breath, SOB with excertion, Wheezing, Hemoptysis, Pleuritic Pain, Sputum, Wheezing, Other Cardiovascular: No: Chest Pain, Palpitations, Orthopnea, Paroxysmal Noc. Dyspnea, Edema, Lt Headedness, Other Gastrointestinal: Nausea, Vomiting, Abdominal Pain, Diarrhea; No: Constipation, Melena, Hematochezia Genitourinary: No Dysuria, No Frequency, No Incontinence, No Hematuria, No Retention, No Other Musculoskeletal: No: other, neck pain, shoulder pain, arm pain, back pain, hand pain, leg pain, foot pain Skin: No: Rash, Lesions, Jaundice, Bruising, Other Neurological: No: Weakness, Numbness, Incoordination, Change in speech, Confusion, Seizures, Other Allergies: Coded Allergies: NO KNOWN ALLERGIES (Unverified , 05/10/14) Medications Current Medications Medications Dose Ordered Sig/Pedro Route Start Time Stop Time Status Last Admin Dose Admin Patient Own Medication 1 cap DAILY PO 08/08/24 10:00 UNV Patient Own Medication 1 tab TID PO 08/07/24 22:00 UNV Patient Own Medication 1 tab DAILY PO 08/08/24 10:00 UNV Patient Own Medication 1 tab BID PO 08/07/24 22:00 UNV Patient Own Medication 4 mg TID PO 08/07/24 22:00 UNV Exam Vital Signs Vital Signs Date Time Temp Pulse Resp B/P (MAP) Pulse Ox O2 Delivery O2 Flow Rate FiO2 08/07/24 16:04 97.9 65 16 118/77 (91) 97 97.9 08/07/24 13:00 Room Air* 0 21 General Appearance: Alert, Oriented X3, Cooperative, No acute distress HEENT: Atraumatic, PERRLA, EOMI, Mucous membr. moist/pink Respiratory: Clear to auscultation, Normal air movement Cardiovascular: Regular rate, Normal S1, Normal S2, No murmurs Abdominal: Soft, No hepatospenomegaly, No masses Extremities: No clubbing, No cyanosis, No edema, Normal pulses, No tenderness/swelling Skin: No rashes, No breakdown, No significant lesion Neuro: Normal gait, Normal speech, Strength at 5/5 X4 ext, Normal tone, Sensation intact Psych/Mental Status: Mental status NL, Mood NL Labs/Xrays Labs Test 08/07/24 11:11 08/07/24 10:50 Range/Units White Blood Count 7.9 4.4-10.8 10^3/uL Red Blood Count 4.83 4.0-5.20 10^6/uL Hemoglobin 14.9 12.2-16.2 g/dL Hematocrit 43.9 36.0-46.0 % Mean Corpuscular Volume 90.7 80.0-100.0 fL Mean Corpuscular Hemoglobin 30.8 28.0-32.0 pg Mean Corpuscular Hemoglobin Concent 33.9 32.0-36.0 g/dL Red Cell Distribution Width 14.8 H 11.8-14.3 % Platelet Count 335 140-450 10^3/uL Mean Platelet Volume 7.8 6.9-10.8 fL Neutrophils (%) (Auto) 42.8 37.0-80.0 % Lymphocytes (%) (Auto) 48.0 10.0-50.0 % Monocytes (%) (Auto) 6.2 0.0-12.0 % Eosinophils (%) (Auto) 2.7 0.0-7.0 % Basophils (%) (Auto) 0.3 0.0-2.0 % Neutrophils # (Auto) 3.4 1.6-8.6 10 ^3/uL Lymphocytes # (Auto) 3.8 0.4-5.4 10 ^3/uL Monocytes # (Auto) 0.5 0-1.3 10 ^3/uL Eosinophils # (Auto) 0.2 0-0.8 10 ^3/uL Basophils # (Auto) 0 0-0.2 10 ^3/uL Nucleated Red Blood Cells 0.1 % Sodium Level 140 136-145 mmol/L Potassium Level 4.3 3.5-5.1 mmol/L Chloride Level 109 H 98-107 mmol/L Carbon Dioxide Level 26 20-31 mmol/L Anion Gap 5 5-15 Blood Urea Nitrogen 12 9-23 mg/dL Creatinine 0.63 0.550-1.02 mg/dL Glomerular Filtration Rate Calc 108 >90 mL/min BUN/Creatinine Ratio 19.0 10.0-20.0 Serum Glucose 105 74-106 mg/dL Calcium Level 10.0 8.7-10.4 mg/dL Total Bilirubin 0.3 0.2-1.0 mg/dL Aspartate Amino Transferase (AST) 14 13-40 U/L Alanine Aminotransferase (ALT) 19 7-40 U/L Alkaline Phosphatase 101 46-116 U/L Total Protein 7.0 5.7-8.2 g/dL Albumin 4.3 3.2-4.8 g/dL Lipase 41 12-53 U/L Urine Color Yellow Yellow Urine Clarity Clear Clear Urine pH 5.5 5.0-9.0 Urine Specific [place] 1.029 1.001-1.035 Urine Protein Trace H Negative Urine Ketones Negative Negative Urine Blood Negative Negative /uL Urine Nitrite Negative Negative Urine Bilirubin Negative Negative Urine Urobilinogen Normal Negative mg/dL Urine Leukocyte Esterase Negative Negative /uL Urine RBC 2 0 - 4 /hpf Urine Microscopic WBC 3 0-5 /HPF Urine Squamous Epithelial Cells Few <5 /hpf Urine Bacteria Few H None Seen /hpf Urine Mucus Few None Seen Urine Glucose Normal Normal mg/dL EXAM: CT Abdomen and Pelvis Without Intravenous Contrast CLINICAL INDICATION: ABD PAIN TECHNIQUE: Axial computed tomography images of the abdomen and pelvis without intravenous contrast. This CT exam was performed using one or more of the following dose reduction techniques: automated exposure control, adjustment of the mA and/or kV according to patient size, and/or use of iterative reconstruction technique. RADIATION DOSE: CTDlvol= 18.5 mGy, DLP= 916.86 mGy-cm COMPARISON: CT CT AB PEL WO CON-NO ORAL OR IV on DOS: 07/28/24, CT CT AB PEL WO CON-NO ORAL OR IV on DOS: 07/12/24, CT CT AB PEL WO CON-NO ORAL OR IV on DOS: 06/22/24, CT CT ABD PELVIS W CON-ORAL IV on DOS: 02/06/24, CT CT AB PEL WO CON- NO ORAL OR IV on DOS: 02/03/24 FINDINGS: LUNG BASES: Unremarkable. No mass. No consolidation. ABDOMEN: LIVER: Multiple hypodense lesions of the liver, likely cysts. GALLBLADDER AND BILE DUCTS: Gallbladder is surgically absent. No ductal dilation. PANCREAS: Unremarkable. No ductal dilation. SPLEEN: Unremarkable. No splenomegaly. ADRENALS: Unremarkable. No mass. KIDNEYS AND URETERS: Unremarkable. No obstructing stones. No hydronephrosis. STOMACH AND BOWEL: Mild constipation. No bowel obstruction or pneumoperitoneum. Evidence of prior bowel resection and reanastomosis. No mucosal thickening. PELVIS: APPENDIX: No findings to suggest acute appendicitis. BLADDER: Unremarkable. No stones. REPRODUCTIVE: Unremarkable as visualized. ABDOMEN and PELVIS: INTRAPERITONEAL SPACE: See above. BONES/JOINTS: No acute fracture. No dislocation. SOFT TISSUES: Small anterior ventral hernia containing fat of the lower abdomen. VASCULATURE: Unremarkable. No abdominal aortic aneurysm. LYMPH NODES: Unremarkable. No enlarged lymph nodes. OTHER FINDINGS: . . IMPRESSION: 1. Mild constipation. No bowel obstruction or pneumoperitoneum. 2. Small anterior ventral hernia containing fat of the lower abdomen. Assessment/Plan Assessment/Plan Assessment/Plan: Intractable abdominal pain likely related to constipation Labs Antihistamine Pain management PPIs Antiemetics NS 1 L given ED Urine test CT abdomen and pelvis UA Lipase Last echo done on 10/15/2023 EF 50% A.m. labs C diff Chronic hypertension Continue home medications Small anterior ventral Hernia Reducible Follow up outpatient with PCP Obesity Counseled patient on lifestyle modifications, diet, and exercise Tobacco use Counseled patient on cessation of tobacco use Offered nicotine patch, patient declined FEN/PPX Diet IV fluids DVT prophylaxis not indicated patient ambulating PUD prophylaxis patient on famotidine Admit to med surg Home medications reconciled Discussed plan of care with patient and nurse Plan discussed with: Patient My Orders Orders - CARIN AYALA Procedure Category Date Status Time (Nf) Duloxetine Hcl PHA 08/08/24 Transmitted (Cymbalta) 10:00 (Nf) Gabapentin PHA 08/07/24 Transmitted 22:00 (Nf) Lisinopril PHA 08/08/24 Transmitted 10:00 (NF) PHA 08/07/24 Transmitted Sennosides-Docusate 22:00 (Nf) Tizanidine PHA 08/07/24 Transmitted Hydrochloride 22:00 Date of Service: Aug 07, 2024 Billing Provider: CARIN AYALA Common Visit Codes: [id number] INP/OBS CARE (HIGH) CARIN AYALA Aug 07, 2024 16:41
[2024-08-07] MEDS ORDERED: ACETAMINOPHEN 325 MG TAB PO PRN (16:45)
[2024-08-07] MEDS: SODIUM CHLORIDE 0.9% 1,000 ML IV SCH (16:59)
[2024-08-07] MEDS ORDERED: IPRATROPIUM BROM 0.5 MG/2.5ML INH SOL NEB PRN (17:00)
[2024-08-07] MEDS ORDERED: ALBUTEROL SULF 2.5 MG/0.5ML(0.5%) NEB SOLN NEB PRN (17:00)
[2024-08-07] MEDS: ONDANSETRON HCL 4 MG/2 ML VIAL IV PRN (18:21)
[2024-08-07] MEDS: MORPHINE SULFATE INJ 2 MG/ml SYRG IV PRN (18:24)
[2024-08-07 21:00] VITALS: BP 112/54; PULSE 58; TEMP 97.7; O2SAT 97
[2024-08-07 21:08] VITALS: BP 150/80; PULSE 65; RESP 18; TEMP 98.4; O2SAT 96; O2SAT 97
[2024-08-07] MEDS: GABAPENTIN 300 MG CAP PO SCH (21:21)
[2024-08-07] MEDS: SENNOSIDES DOCUSATE SODIUM PO SCH (21:53)
[2024-08-07] MEDS: TIZANIDINE HYDROCHLORIDE 4 MG PO SCH (21:54)
[2024-08-07] MEDS: diphenhdrAMINE HCL 50 MG/1 ML VL IV PRN (22:28)
[2024-08-08] VITALS (9 sets, daily range): BP systolic 112–144; BP diastolic 68–81; PULSE 54–68; RESP 16–20; TEMP 97.5–98; O2SAT 94–98
[2024-08-08 06:21] LABS: Basophils # (auto) 0.1 10 ^3/uL (0-0.2); Eosinophils # (auto) 0.3 10 ^3/uL (0-0.8); Eosinophils % (auto) 3.5 % (0.0-7.0); Hematocrit 38.1 % (36.0-46.0); Hemoglobin 12.9 g/dL (12.2-16.2); Lymphocytes # (auto) 3.7 10 ^3/uL (0.4-5.4); Lymphocytes % (auto) 47.4 % (10.0-50.0); Mean Corpuscular Hemoglobin 30.8 pg (28.0-32.0); Mean Corpuscular Hgb Conc. 33.7 g/dL (32.0-36.0); Mean Corpuscular Volume 91.4 fL (80.0-100.0); Monocytes # (auto) 0.7 10 ^3/uL (0-1.3); Monocytes % (auto) 8.8 % (0.0-12.0); Neutrophils # (auto) 3.1 10 ^3/uL (1.6-8.6); Neutrophils % (auto) 39.3 % (37.0-80.0); Nucleated Red Blood Cells % 0.1 %; Platelet Count (auto) 274 10^3/uL (140-450); Red Blood Cells 4.17 10^6/uL (4.0-5.20); Red Cell Distribution Width 14.7 % (11.8-14.3); White Blood Cell 7.9 10^3/uL (4.4-10.8)
[2024-08-08 06:27] LABS: Alanine Aminotransferase 18 U/L (7-40); Albumin 3.9 g/dL (3.2-4.8); Alkaline Phosphatase 86 U/L (46-116); Anion Gap 6 (5-15); BUN/Creatinine Ratio 18.8 (10.0-20.0); Bilirubin, Total 0.3 mg/dL (0.2-1.0); Blood Urea Nitrogen 12 mg/dL (9-23); Carbon Dioxide 25 mmol/L (20-31); Glucose 87 mg/dL (74-106); Sodium 140 mmol/L (136-145)
[2024-08-08 06:28] LABS: Total Protein 5.9 g/dL (5.7-8.2)
[2024-08-08 06:29] LABS: Aspartate Aminotransferase 12 U/L (13-40); Chloride 109 mmol/L (98-107)
[2024-08-08] MEDS ORDERED: DULoxetine HCL 30 MG CAP PO SCH (10:00)
[2024-08-08] MEDS: LOSARTAN POTASSIUM 25 MG TAB PO SCH (11:30)
[2024-08-08] MEDS: HYDROcodone-ACET 5/325MG TAB PO PRN (18:41)
[2024-08-08] MEDS: ALPRAZolam 0.25 MG TAB PO ONE (22:08)
[2024-08-09] VITALS (10 sets, daily range): BP systolic 106–162; BP diastolic 52–102; PULSE 50–84; RESP 13–20; TEMP 97.6–98.4; O2SAT 95–100
--- NOTE | 2024-08-09 11:16 | DVHPN2 ---
Progress Note Date Seen: Aug 09, 2024 Medical Necessity Reason Pt with a Central, PICC or Fol: No Subjective Patient reports: No new complaints Review of Systems: HEENT:Normal, CVS:Normal, RESPIRATORY:Normal, GI:Normal, :Normal, MSK:Normal, NEURO:Normal Objective vital signs Vital Sign Date Time Temp Pulse Resp B/P (MAP) Pulse Ox O2 Delivery O2 Flow Rate FiO2 08/09/24 11:02 136/68 08/09/24 10:14 98 Room Air* 0 21 08/09/24 08:44 98.1 61 18 98.1 Total Intake and Output 08/08/24 08/08/24 08/09/24 15:00 23:00 07:00 Intake Total 880 ml 50 ml 1840 ml Output Total 400 ml Balance 880 ml 50 ml 1440 ml medications Current Medications Medications Dose Ordered Sig/Pedro Route Start Time Stop Time Status Last Admin Dose Admin Duloxetine HCl 60 mg DAILY PO 08/08/24 10:00 Hold Gabapentin 600 mg TID PO 08/07/24 22:00 08/09/24 05:57 600 MG Losartan Potassium 25 mg DAILY PO 08/08/24 10:00 08/09/24 11:02 25 MG Patient Own Medication 1 tab BID PO 08/07/24 22:00 Patient Own Medication 4 mg TID PO 08/07/24 22:00 08/08/24 14:22 4 MG Acetaminophen/ Hydrocodone Bitart 1 tab Q4HP PRN PO 08/07/24 16:45 08/08/24 18:41 1 TAB Ondansetron HCl 4 mg Q4HP PRN IV 08/07/24 16:45 08/08/24 00:10 4 MG Acetaminophen 650 mg Q6HP PRN PO 08/07/24 16:45 Morphine Sulfate 2 mg Q4HPRN PRN IV 08/07/24 16:45 08/09/24 04:27 2 MG Sodium Chloride 1,000 ml @ 75 mls/hr [id number] IV 08/07/24 16:45 08/09/24 06:28 75 MLS/HR Albuterol 2.5 mg Q4HPRN PRN NEB 08/07/24 17:00 Ipratropium [place] 0.5 mg Q4HPRN PRN NEB 08/07/24 17:00 Diphenhydramine HCl 25 mg Q4HP PRN IV 08/07/24 22:00 08/09/24 04:27 25 MG Examination: GENERAL:Normal, HEENT:Normal, NECK:Normal, LUNGS:Normal, CVS:Normal, ABDOMEN:Normal, MSK:Normal, SKIN:Normal, NEURO:Normal, :Normal laboratory and microbiology Laboratory Tests 08/08/24 05:44 Test 08/08/24 05:44 Range/Units Serum Glucose 87 74-106 mg/dL Microbiology Date/Time Source Procedure Growth Status 08/07/24 10:50 Voided Urine Urine Culture - Final Complete Problem List/Assessment/Plan Problem List/Assessment/Plan #1 abd pain with ventral hernia s/p multiple surgeries: surg eval, cont meds #2 htn #3 anxiety #4 tobacco abuse: advised to quit, nicotine patch- time spent 11 mins advance care planning- full code- time spent 19 mins Plan discussed with: Patient Date of Service: Aug 09, 2024 Billing Provider: HAROLDO BAIRD MD Common Visit Codes: [id number] INP/OBS CARE(HIGH) Secondary Visit Codes: 59958-[id number] CHNG SMOKING >10MIN, [id number] CARE PLAN 30 MINUTES HAROLDO BAIRD MD Aug 09, 2024 11:16
[2024-08-09] MEDS: LACTULOSE 20Gm/30ML SOLN PO ONE (12:09)
[2024-08-09] MEDS: NICOTINE 14 MG/24HR TOPICAL PATCH TD ONE (12:10)
[2024-08-09] MEDS: LACTULOSE 20Gm/30ML SOLN PO SCH (21:31)
[2024-08-09] MEDS: ALPRAZolam 0.5 MG TAB PO PRN (22:41)
[2024-08-10] VITALS (11 sets, daily range): BP systolic 91–156; BP diastolic 48–117; PULSE 66–91; RESP 12–18; TEMP 97.6–98.1; O2SAT 93–99
--- NOTE | 2024-08-10 10:43 | DVHPN2 ---
Progress Note Date Seen: Aug 10, 2024 Medical Necessity Reason Pt with a Central, PICC or Fol: No Subjective Patient reports: No new complaints Review of Systems: HEENT:Normal, CVS:Normal, RESPIRATORY:Normal, GI:Normal, :Normal, MSK:Normal, NEURO:Normal Objective vital signs Vital Sign Date Time Temp Pulse Resp B/P (MAP) Pulse Ox O2 Delivery O2 Flow Rate FiO2 08/10/24 05:43 70 16 153/97 08/10/24 05:00 98.0 97 98.0 08/09/24 20:28 Room Air 0.0 08/09/24 20:28 21 Total Intake and Output 08/09/24 08/09/24 08/10/24 15:00 23:00 07:00 Intake Total 600 ml 960 ml 150 ml Balance 600 ml 960 ml 150 ml medications Current Medications Medications Dose Ordered Sig/Pedro Route Start Time Stop Time Status Last Admin Dose Admin Gabapentin 600 mg TID PO 08/07/24 22:00 08/10/24 05:28 600 MG Losartan Potassium 25 mg DAILY PO 08/08/24 10:00 08/09/24 11:02 25 MG Patient Own Medication 1 tab BID PO 08/07/24 22:00 Acetaminophen/ Hydrocodone Bitart 1 tab Q4HP PRN PO 08/07/24 16:45 08/10/24 01:56 1 TAB Ondansetron HCl 4 mg Q4HP PRN IV 08/07/24 16:45 08/08/24 00:10 4 MG Acetaminophen 650 mg Q6HP PRN PO 08/07/24 16:45 Morphine Sulfate 2 mg Q4HPRN PRN IV 08/07/24 16:45 08/10/24 04:21 2 MG Sodium Chloride 1,000 ml @ 75 mls/hr [id number] IV 08/07/24 16:45 08/09/24 06:28 75 MLS/HR Albuterol 2.5 mg Q4HPRN PRN NEB 08/07/24 17:00 Ipratropium [place] 0.5 mg Q4HPRN PRN NEB 08/07/24 17:00 Diphenhydramine HCl 25 mg Q4HP PRN IV 08/07/24 22:00 08/10/24 05:29 25 MG Alprazolam 1 mg Q8HPRN PRN PO 08/09/24 11:15 08/09/24 22:41 1 MG Nicotine 1 patch DAILY TD 08/10/24 10:00 Lactulose 30 ml BID PO 08/09/24 22:00 08/09/24 21:31 30 ML Patient Own Medication 6 mg TIDPRN PRN PO 08/09/24 14:00 Examination: GENERAL:Normal, HEENT:Normal, NECK:Normal, LUNGS:Normal, CVS:Normal, ABDOMEN:Normal, MSK:Normal, SKIN:Normal, NEURO:Normal, :Normal laboratory and microbiology Laboratory Tests 08/08/24 05:44 Test 08/08/24 05:44 Range/Units Serum Glucose 87 74-106 mg/dL Microbiology Date/Time Source Procedure Growth Status 08/07/24 10:50 Voided Urine Urine Culture - Final Complete Problem List/Assessment/Plan Problem List/Assessment/Plan #1 abd pain with ventral hernia s/p multiple surgeries: surg eval, cont meds #2 htn #3 anxiety #4 tobacco abuse: advised to quit, nicotine patch- time spent 11 mins advance care planning- full code- time spent 19 mins Plan discussed with: Patient My Orders My Orders Orders - HAROLDO BAIRD MD Procedure Category Date Status Time Alprazolam Tablet PHA 08/09/24 In Process (Xanax Tablet) 11:15 Nicotine 14mg/24hr PHA 08/10/24 In Process (Nicoderm 14mg/24hr) 10:00 Lactulose Oral PHA 08/09/24 In Process 22:00 * Surgical Consult CONS 08/09/24 Verified 11:54 Date of Service: Aug 10, 2024 Billing Provider: HAROLDO BAIRD MD Common Visit Codes: [id number] INP/OBS CARE(HIGH) HAROLDO BAIRD MD Aug 10, 2024 10:43
[2024-08-10] MEDS: NICOTINE 14 MG/24HR TOPICAL PATCH TD SCH (10:48)
--- NOTE | 2024-08-10 11:54 | DVHINCON2 ---
Date of service: Aug 10, 2024 Family History: Diabetes mellitus G8 MOTHER G8 FATHER FH: cancer Hypertension G8 MOTHER G8 FATHER Allergies: Coded Allergies: NO KNOWN ALLERGIES (Unverified , 05/10/14) Home Meds Active Scripts Prednisone (Prednisone) 20 Mg Tab, 20 MG PO DAILY for 5 Days, #5 MG Prov:NICHO COELLO [facility] 07/12/24 Tamsulosin Hcl (Flomax) 0.4 Mg Cap, 1 CAP PO DAILY for 10 Days, #10 CAP 11 Refills Prov:NICHO COELLO [facility] 07/12/24 Naproxen (NAPROSYN TABLET) 500 Mg Tb, 1 TAB PO BID PRN, #60 TAB 1 Refill Prov:NICHO COELLO [facility] 07/12/24 Polyethylene Glycol 3350 (Miralax) 17 Gm Pow, 17 GM PO BIDPRN PRN for 2 Days, #4 POW Prov:GISSEL RAMOS MD 06/22/24 Alprazolam (Xanax) 0.25 Mg Tb, 1 TAB PO BID PRN, #15 TAB Prov:STEVAN VERAS MD 06/02/24 Tramadol HCl (Tramadol HCl) 50 Mg Tab, 50 MG PO Q6HP PRN, #15 TAB Prov:STEVAN VERAS MD 06/02/24 Amoxicillin & Pot Clavulanate (AUGMENTIN TABLET) 875 Mg Tb, 875 MG PO BID for 7 Days, #14 TAB Prov:STEVAN VERAS MD 02/08/24 Dextromethorphan-Guaifenesin (Robitussin-Dm) 10 Ml Sr, 10 ML PO Q6HP PRN, #120 ML Prov:STEVAN VERAS MD 01/31/24 Hydrocortone (Hydrocortisone 2.5%) 1 Applic Ap, 1 APPLIC ME QHSP PRN, #10 APPLIC Prov:STEVAN VERAS MD 01/31/24 Ondansetron Odt 4MG Tab (ZOFRAN PO) 4 Mg Tb, 4 MG PO TID PRN for 3 Days, #9 TAB 0 Refills ODT TAB-DISSOLVE IN MOUTH, THEN SWALLOW Prov:MALLORY THOMAS MD 01/19/24 Miconazole Nitrate Vaginal (Monistat 7 Combination Pa 100 & 2 mg-% (9Gm)) 1 Kit Kit, 1 KIT VA DAILY, #1 KIT 0 Refills Follow instructions on package insert and take as prescribed. Prov:MALLORY THOMAS MD 01/19/24 Dicyclomine Hcl (BENTYL CAPSULE) 10 Mg Cp, 1 CAP PO TID, #90 CAP 11 Refills Prov:NICHO COELLO [facility] 01/05/24 Hydrocodone-Acetaminophen (Hydrocodone Bitartrate/AC 5-325 mg) 1 Tab Tab, 1 TAB PO Q6HP PRN, #30 TAB Prov:STEVAN VERAS MD 11/07/23 Loperamide Hcl (Imodium) 2 Mg Cp, 2 MG PO PRN PRN, #30 CAP Prov:STEVAN VERAS MD 11/07/23 Docusate Sodium (Colace) 100 Mg Cap, 1 CAP PO BID, #60 CAP Prov:STEVAN VERAS MD 10/28/23 Pantoprazole Sodium Sesquihydr (Protonix) 40 Mg Tab, 40 MG PO DAILY for 7 Days, #7 TAB Prov:CHANTAL STEWART MD 10/14/23 Reported Medications Alprazolam (Alprazolam) 0.25 Mg Tab, 1 TAB PO BIDPRN PRN 08/07/24 Famotidine (Famotidine) 40 Mg Tab, 1 TAB PO QHSP PRN 08/07/24 Ibandronate Sodium (IBANDRONATE SODIUM) 150 Mg Tab, 1 TAB PO 08/07/24 Losartan Potassium (Losartan Potassium) 25 Mg Tab, 1 TAB PO DAILY 08/07/24 Tamsulosin Hcl (Tamsulosin Hcl) 0.4 Mg Cap, 1 CAP PO DAILY 08/07/24 Guaifenesin-Codeine (Robitussin/Codeine) 10 Ml So, 5 ML PO Q6HR, #120 ML 01/31/24 Duloxetine Hcl (Cymbalta) 60 Mg Cap, 1 CAP PO DAILY, #90 CAP 3 Refills 01/30/24 Oxycodone Hcl (OxyCONTIN ER Tablet) 10 Mg Tb, 10 MG PO TIDP PRN for BREAKTHROUGH PAIN, TAB 10/14/23 Sennosides-Docusate Sodium (Senokot S) 1 Tab Tab, 1 TAB PO BID, #30 TAB 10/14/23 Tizanidine Hydrochloride (Tizanidine Hcl) 4 Mg Tab, 4 MG PO TID, TAB 10/14/23 Alprazolam (Xanax) 1 Mg Tab, 1 TAB PO DAILY PRN, #60 TAB 10/14/23 Gabapentin (Gabapentin) 600 Mg Tab, 1 TAB PO TID, #90 TAB 3 Refills 10/14/23 Lisinopril (Lisinopril) 40 Mg Tab, 1 TAB PO DAILY, #30 TAB 5 Refills 10/14/23 Current Medications Current Medications Medications (Trade) Dose Ordered Sig/Pedro Route PRN Reason Start Time Stop Time Status Last Admin Nicotine (Nicoderm 14MG/ 24HR) 1 patch DAILY TD 08/10/24 10:00 08/10/24 10:48 Lactulose 30 ml BID PO 08/09/24 22:00 08/10/24 10:48 Patient Own Medication 6 mg TIDPRN PRN PO MUSCLE SPASTICITY 08/09/24 14:00 Vital Signs Vital Signs Date Time Temp Pulse Resp B/P (MAP) Pulse Ox O2 Delivery O2 Flow Rate FiO2 08/10/24 10:59 78 18 156/92 08/10/24 09:00 97.9 99 97.9 08/09/24 20:28 Room Air 0.0 08/09/24 20:28 21 Labs/Diagnostic Data Labs Test 08/08/24 05:44 08/07/24 11:11 08/07/24 10:50 Range/Units White Blood Count 7.9 4.4-10.8 10^3/uL Red Blood Count 4.17 4.0-5.20 10^6/uL Hemoglobin 12.9 12.2-16.2 g/dL Hematocrit 38.1 # 36.0-46.0 % Mean Corpuscular Volume 91.4 80.0-100.0 fL Mean Corpuscular Hemoglobin 30.8 28.0-32.0 pg Mean Corpuscular Hemoglobin Concent 33.7 32.0-36.0 g/dL Red Cell Distribution Width 14.7 H 11.8-14.3 % Platelet Count 274 140-450 10^3/uL Mean Platelet Volume 8.1 6.9-10.8 fL Neutrophils (%) (Auto) 39.3 37.0-80.0 % Lymphocytes (%) (Auto) 47.4 10.0-50.0 % Monocytes (%) (Auto) 8.8 0.0-12.0 % Eosinophils (%) (Auto) 3.5 0.0-7.0 % Basophils (%) (Auto) 1.0 0.0-2.0 % Neutrophils # (Auto) 3.1 1.6-8.6 10 ^3/uL Lymphocytes # (Auto) 3.7 0.4-5.4 10 ^3/uL Monocytes # (Auto) 0.7 0-1.3 10 ^3/uL Eosinophils # (Auto) 0.3 0-0.8 10 ^3/uL Basophils # (Auto) 0.1 0-0.2 10 ^3/uL Nucleated Red Blood Cells 0.1 % Sodium Level 140 136-145 mmol/L Potassium Level 4.0 3.5-5.1 mmol/L Chloride Level 109 H 98-107 mmol/L Carbon Dioxide Level 25 20-31 mmol/L Anion Gap 6 5-15 Blood Urea Nitrogen 12 9-23 mg/dL Creatinine 0.64 0.550-1.02 mg/dL Glomerular Filtration Rate Calc 108 >90 mL/min BUN/Creatinine Ratio 18.8 10.0-20.0 Serum Glucose 87 74-106 mg/dL Calcium Level 9.0 8.7-10.4 mg/dL Total Bilirubin 0.3 0.2-1.0 mg/dL Aspartate Amino Transferase (AST) 12 L 13-40 U/L Alanine Aminotransferase (ALT) 18 7-40 U/L Alkaline Phosphatase 86 46-116 U/L Total Protein 5.9 5.7-8.2 g/dL Albumin 3.9 3.2-4.8 g/dL Lipase 41 12-53 U/L Urine Color Yellow Yellow Urine Clarity Clear Clear Urine pH 5.5 5.0-9.0 Urine Specific [place] 1.029 1.001-1.035 Urine Protein Trace H Negative Urine Ketones Negative Negative Urine Blood Negative Negative /uL Urine Nitrite Negative Negative Urine Bilirubin Negative Negative Urine Urobilinogen Normal Negative mg/dL Urine Leukocyte Esterase Negative Negative /uL Urine RBC 2 0 - 4 /hpf Urine Microscopic WBC 3 0-5 /HPF Urine Squamous Epithelial Cells Few <5 /hpf Urine Bacteria Few H None Seen /hpf Urine Mucus Few None Seen Urine Glucose Normal Normal mg/dL Microbiology Date/Time Source Procedure Growth Status 08/07/24 10:50 Voided Urine Urine Culture - Final Complete Assessment 08/10/24 C/O ABDOMINAL PAIN, DIFFICULTY VOIDING, CONSTIPATION, "PROLAPSING "RECTUM,.HAD PRIOR ABDOMINAL SURGERIES AND ILEOSTOMY REVERSAL, ABDOMEN NON DISTENDED, GUARDING, C/O TENDERNESS, CT REVIEWED, SMALL MIDLINE HERNIATION WITH FAT, NO EVIDENCE OF BOWEL HERNIATION, NO INDICATION FOR SURGICAL INTERVENTION AT THIS TIME, WILL REQUEST GI EVALUATION Plan discussed with: Patient, Daughter, Son MARIE SOTO MD Aug 10, 2024 11:54
--- NOTE | 2024-08-10 21:14 | DVHINCON2 ---
Date of service: Aug 10, 2024 Referring Physician Panchito Guo Reason for Consultation Abd Pain History of Present Illness Miri Schmitz is a 49-year-old female with past medical history of hypertension, colostomy reversal, cholecystectomy, hernia repair, hysterectomy, and tubal ligation who presents to the ED for abdominal pain, nausea, vomiting, and diarrhea x3 days. Patient reports that her pain is pressure-like constant and 10/10. She reports that taking a warm bath helps with the pain and there are no triggering factors. Patient states that she has chronic right-sided pain and swelling. Patient has difficulty hearing needing because of a rectal prolapse. Patient wants to get her rectal prolapse fixed. She has also seen a colorectal surgeon at the gastro group from [facility]. She was told she might have some intestinal dysmotility however her symptoms appear to be related to pelvic floor muscular weakness and frequent rectal prolapse and that she resolve spontaneously I have performed endoscopic workup for her within the last year Operative Report DATE OF OPERATION: 01/26/24 PROCEDURE: Upper Endoscopy with biopsy. PREOPERATIVE INDICATION: The patient is a 48 -year-old female undergoing endoscopy for recurrent nausea vomiting and abdominal pain POSTOPERATIVE DIAGNOSES: 1. She had a 1-2 cm sliding-type hiatal hernia with slightly irregular squam ocolumnar junction minimal grade a erosive esophagitis 2. Mild gastritis and gastropathy otherwise normal examination up to the 2nd and 3rd part of the duodenum PROCEDURE PERFORMED BY: Val Leary Operative Report DATE OF OPERATION: 10/17/23 PROCEDURE: Diagnostic colonoscopy and ileoscopy PREOPERATIVE INDICATION: The patient is a 48 -year-old female undergoing colonoscopy for evaluation prior to reversal of loop ileostomy POSTOPERATIVE DIAGNOSES: 1. Essentially complete and normal colonoscopy examination up to the cecum and terminal ileum 2. Essentially normal-appearing ileum 15 to 20 cm above the ileostomy opening PROCEDURE PERFORMED BY: Val Leary M.D. SCOPE: Olympus videocolonoscope. ASA CLASS: 2 PREOPERATIVE MEDICATIONS: MARIIA herbert, Past Medical History Cardiovascular: HTN Past Surgical History Past Surgical History: Cholecystectomy, Hysterectomy, Hernia Repair, Other (Colostomy reversal), Tubal Ligation Family History: Diabetes mellitus G8 MOTHER G8 FATHER FH: cancer Hypertension G8 MOTHER G8 FATHER Allergies: Coded Allergies: NO KNOWN ALLERGIES (Unverified , 05/10/14) Home Meds Active Scripts Prednisone (Prednisone) 20 Mg Tab, 20 MG PO DAILY for 5 Days, #5 MG Prov:NICHO COELLO CALL WORK[employer] PERSON 07/12/24 Tamsulosin Hcl (Flomax) 0.4 Mg Cap, 1 CAP PO DAILY for 10 Days, #10 CAP 11 Refills Prov:NICHO COELLO [employer] WORK[employer] PERSON 07/12/24 Naproxen (NAPROSYN TABLET) 500 Mg Tb, 1 TAB PO BID PRN, #60 TAB 1 Refill Prov:NICHO COELLO [facility] 07/12/24 Polyethylene Glycol 3350 (Miralax) 17 Gm Pow, 17 GM PO BIDPRN PRN for 2 Days, #4 POW Prov:GISSEL RAMOS MD 06/22/24 Alprazolam (Xanax) 0.25 Mg Tb, 1 TAB PO BID PRN, #15 TAB Prov:STEVAN VERAS MD 06/02/24 Tramadol HCl (Tramadol HCl) 50 Mg Tab, 50 MG PO Q6HP PRN, #15 TAB Prov:STEVAN VERAS MD 06/02/24 Amoxicillin & Pot Clavulanate (AUGMENTIN TABLET) 875 Mg Tb, 875 MG PO BID for 7 Days, #14 TAB Prov:STEVAN VERAS MD 02/08/24 Dextromethorphan-Guaifenesin (Robitussin-Dm) 10 Ml Sr, 10 ML PO Q6HP PRN, #120 ML Prov:STEVAN VERAS MD 01/31/24 Hydrocortone (Hydrocortisone 2.5%) 1 Applic Ap, 1 APPLIC RI QHSP PRN, #10 APPLIC Prov:STEVAN VERAS MD 01/31/24 Ondansetron Odt 4MG Tab (ZOFRAN PO) 4 Mg Tb, 4 MG PO TID PRN for 3 Days, #9 TAB 0 Refills ODT TAB-DISSOLVE IN MOUTH, THEN SWALLOW Prov:MALLORY THOMAS MD 01/19/24 Miconazole Nitrate Vaginal (Monistat 7 Combination Pa 100 & 2 mg-% (9Gm)) 1 Kit Kit, 1 KIT VA DAILY, #1 KIT 0 Refills Follow instructions on package insert and take as prescribed. Prov:MALLORY THOMAS MD 01/19/24 Dicyclomine Hcl (BENTYL CAPSULE) 10 Mg Cp, 1 CAP PO TID, #90 CAP 11 Refills Prov:NICHO COELLO CALL WORK[employer] PERSON 01/05/24 Hydrocodone-Acetaminophen (Hydrocodone Bitartrate/AC 5-325 mg) 1 Tab Tab, 1 TAB PO Q6HP PRN, #30 TAB Prov:STEVAN VERAS MD 11/07/23 Loperamide Hcl (Imodium) 2 Mg Cp, 2 MG PO PRN PRN, #30 CAP Prov:STEVAN VERAS MD 11/07/23 Docusate Sodium (Colace) 100 Mg Cap, 1 CAP PO BID, #60 CAP Prov:STEVAN VERAS MD 10/28/23 Pantoprazole Sodium Sesquihydr (Protonix) 40 Mg Tab, 40 MG PO DAILY for 7 Days, #7 TAB Prov:CHANTAL STEWART MD 10/14/23 Reported Medications Alprazolam (Alprazolam) 0.25 Mg Tab, 1 TAB PO BIDPRN PRN 08/07/24 Famotidine (Famotidine) 40 Mg Tab, 1 TAB PO QHSP PRN 08/07/24 Ibandronate Sodium (IBANDRONATE SODIUM) 150 Mg Tab, 1 TAB PO 08/07/24 Losartan Potassium (Losartan Potassium) 25 Mg Tab, 1 TAB PO DAILY 08/07/24 Tamsulosin Hcl (Tamsulosin Hcl) 0.4 Mg Cap, 1 CAP PO DAILY 08/07/24 Guaifenesin-Codeine (Robitussin/Codeine) 10 Ml So, 5 ML PO Q6HR, #120 ML 01/31/24 Duloxetine Hcl (Cymbalta) 60 Mg Cap, 1 CAP PO DAILY, #90 CAP 3 Refills 01/30/24 Oxycodone Hcl (OxyCONTIN ER Tablet) 10 Mg Tb, 10 MG PO TIDP PRN for BREAKTHROUGH PAIN, TAB 10/14/23 Sennosides-Docusate Sodium (Senokot S) 1 Tab Tab, 1 TAB PO BID, #30 TAB 10/14/23 Tizanidine Hydrochloride (Tizanidine Hcl) 4 Mg Tab, 4 MG PO TID, TAB 10/14/23 Alprazolam (Xanax) 1 Mg Tab, 1 TAB PO DAILY PRN, #60 TAB 10/14/23 Gabapentin (Gabapentin) 600 Mg Tab, 1 TAB PO TID, #90 TAB 3 Refills 10/14/23 Lisinopril (Lisinopril) 40 Mg Tab, 1 TAB PO DAILY, #30 TAB 5 Refills 10/14/23 Current Medications Current Medications Medications (Trade) Dose Ordered Sig/Pedro Route PRN Reason Start Time Stop Time Status Last Admin Nicotine (Nicoderm 14MG/ 24HR) 1 patch DAILY TD 08/10/24 10:00 08/10/24 10:48 Lactulose 30 ml BID PO 08/09/24 22:00 08/10/24 10:48 Vital Signs Vital Signs Date Time Temp Pulse Resp B/P (MAP) Pulse Ox O2 Delivery O2 Flow Rate FiO2 08/10/24 18:51 99 Room Air* 0 21 08/10/24 18:42 65 16 157/92 08/10/24 17:00 98.1 98.1 Labs/Diagnostic Data Labs Test 08/08/24 05:44 08/07/24 11:11 08/07/24 10:50 Range/Units White Blood Count 7.9 4.4-10.8 10^3/uL Red Blood Count 4.17 4.0-5.20 10^6/uL Hemoglobin 12.9 12.2-16.2 g/dL Hematocrit 38.1 # 36.0-46.0 % Mean Corpuscular Volume 91.4 80.0-100.0 fL Mean Corpuscular Hemoglobin 30.8 28.0-32.0 pg Mean Corpuscular Hemoglobin Concent 33.7 32.0-36.0 g/dL Red Cell Distribution Width 14.7 H 11.8-14.3 % Platelet Count 274 140-450 10^3/uL Mean Platelet Volume 8.1 6.9-10.8 fL Neutrophils (%) (Auto) 39.3 37.0-80.0 % Lymphocytes (%) (Auto) 47.4 10.0-50.0 % Monocytes (%) (Auto) 8.8 0.0-12.0 % Eosinophils (%) (Auto) 3.5 0.0-7.0 % Basophils (%) (Auto) 1.0 0.0-2.0 % Neutrophils # (Auto) 3.1 1.6-8.6 10 ^3/uL Lymphocytes # (Auto) 3.7 0.4-5.4 10 ^3/uL Monocytes # (Auto) 0.7 0-1.3 10 ^3/uL Eosinophils # (Auto) 0.3 0-0.8 10 ^3/uL Basophils # (Auto) 0.1 0-0.2 10 ^3/uL Nucleated Red Blood Cells 0.1 % Sodium Level 140 136-145 mmol/L Potassium Level 4.0 3.5-5.1 mmol/L Chloride Level 109 H 98-107 mmol/L Carbon Dioxide Level 25 20-31 mmol/L Anion Gap 6 5-15 Blood Urea Nitrogen 12 9-23 mg/dL Creatinine 0.64 0.550-1.02 mg/dL Glomerular Filtration Rate Calc 108 >90 mL/min BUN/Creatinine Ratio 18.8 10.0-20.0 Serum Glucose 87 74-106 mg/dL Calcium Level 9.0 8.7-10.4 mg/dL Total Bilirubin 0.3 0.2-1.0 mg/dL Aspartate Amino Transferase (AST) 12 L 13-40 U/L Alanine Aminotransferase (ALT) 18 7-40 U/L Alkaline Phosphatase 86 46-116 U/L Total Protein 5.9 5.7-8.2 g/dL Albumin 3.9 3.2-4.8 g/dL Lipase 41 12-53 U/L Urine Color Yellow Yellow Urine Clarity Clear Clear Urine pH 5.5 5.0-9.0 Urine Specific Morrill 1.029 1.001-1.035 Urine Protein Trace H Negative Urine Ketones Negative Negative Urine Blood Negative Negative /uL Urine Nitrite Negative Negative Urine Bilirubin Negative Negative Urine Urobilinogen Normal Negative mg/dL Urine Leukocyte Esterase Negative Negative /uL Urine RBC 2 0 - 4 /hpf Urine Microscopic WBC 3 0-5 /HPF Urine Squamous Epithelial Cells Few <5 /hpf Urine Bacteria Few H None Seen /hpf Urine Mucus Few None Seen Urine Glucose Normal Normal mg/dL Microbiology Date/Time Source Procedure Growth Status 08/07/24 10:50 Voided Urine Urine Culture - Final Complete CT SCAN ABD PELVIS IMPRESSION: 1. Mild constipation. No bowel obstruction or pneumoperitoneum. 2. Small anterior ventral hernia containing fat of the lower abdomen. Problems(with codes): (1) Abdominal pain (2) Lumbar sprain (3) Constipation (4) Back pain Plan/Recommendation Plan Patient has had complete GI workup including endoscopy colonoscopy Her laboratory tests and imaging do not show any ongoing acute GI issues ; hepatitis profile and liver enzymes are normal Patient needs conservative management from a GI point of view Patient is requesting some kind of surgical intervention to help her with her hernia abdominal wall weakness and recurrent rectal prolapse We will request surgical consult to follow up on this patient Patient is also wishing to talk discuss her bladder problems with the urologist Patient does not want to go to higher level of care because it is too far Patient stated she was going to file a grievance as she has been trying to get b juan f for the last year since November and the symptoms have been ongoing Plan discussed with: Patient, Other (Nurse) VAL LEARY MD Aug 10, 2024 21:14
[2024-08-11] VITALS (8 sets, daily range): BP systolic 132–155; BP diastolic 68–94; PULSE 52–84; RESP 17–20; TEMP 97.2–98.1; O2SAT 92–99
--- NOTE | 2024-08-11 10:13 | DVHDS2 ---
Discharge Summary Date of Admission Aug 07, 2024 at 16:33 Date of Discharge: Aug 11, 2024 Labs/Diagnostic Data: Laboratory Results Test 08/08/24 05:44 08/07/24 11:11 08/07/24 10:50 White Blood Count 7.9 10^3/uL (4.4-10.8) Red Blood Count 4.17 10^6/uL (4.0-5.20) Hemoglobin 12.9 g/dL (12.2-16.2) Hematocrit 38.1 % (36.0-46.0) Mean Corpuscular Volume 91.4 fL (80.0-100.0) Mean Corpuscular Hemoglobin 30.8 pg (28.0-32.0) Mean Corpuscular Hemoglobin Concent 33.7 g/dL (32.0-36.0) Red Cell Distribution Width 14.7 % (11.8-14.3) Platelet Count 274 10^3/uL (140-450) Mean Platelet Volume 8.1 fL (6.9-10.8) Neutrophils (%) (Auto) 39.3 % (37.0-80.0) Lymphocytes (%) (Auto) 47.4 % (10.0-50.0) Monocytes (%) (Auto) 8.8 % (0.0-12.0) Eosinophils (%) (Auto) 3.5 % (0.0-7.0) Basophils (%) (Auto) 1.0 % (0.0-2.0) Neutrophils # (Auto) 3.1 10 ^3/uL (1.6-8.6) Lymphocytes # (Auto) 3.7 10 ^3/uL (0.4-5.4) Monocytes # (Auto) 0.7 10 ^3/uL (0-1.3) Eosinophils # (Auto) 0.3 10 ^3/uL (0-0.8) Basophils # (Auto) 0.1 10 ^3/uL (0-0.2) Nucleated Red Blood Cells 0.1 % Sodium Level 140 mmol/L (136-145) Potassium Level 4.0 mmol/L (3.5-5.1) Chloride Level 109 mmol/L (98-107) Carbon Dioxide Level 25 mmol/L (20-31) Anion Gap 6 (5-15) Blood Urea Nitrogen 12 mg/dL (9-23) Creatinine 0.64 mg/dL (0.550-1.02) Glomerular Filtration Rate Calc 108 mL/min (>90) BUN/Creatinine Ratio 18.8 (10.0-20.0) Serum Glucose 87 mg/dL (74-106) Calcium Level 9.0 mg/dL (8.7-10.4) Total Bilirubin 0.3 mg/dL (0.2-1.0) Aspartate Amino Transferase (AST) 12 U/L (13-40) Alanine Aminotransferase (ALT) 18 U/L (7-40) Alkaline Phosphatase 86 U/L (46-116) Total Protein 5.9 g/dL (5.7-8.2) Albumin 3.9 g/dL (3.2-4.8) Lipase 41 U/L (12-53) Urine Color Yellow (Yellow) Urine Clarity Clear (Clear) Urine pH 5.5 (5.0-9.0) Urine Specific Waller 1.029 (1.001-1.035) Urine Protein Trace (Negative) Urine Ketones Negative (Negative) Urine Blood Negative /uL (Negative) Urine Nitrite Negative (Negative) Urine Bilirubin Negative (Negative) Urine Urobilinogen Normal mg/dL (Negative) Urine Leukocyte Esterase Negative /uL (Negative) Urine RBC 2 /hpf (0 - 4) Urine Microscopic WBC 3 /HPF (0-5) Urine Squamous Epithelial Cells Few /hpf (<5) Urine Bacteria Few /hpf (None Seen) Urine Mucus Few (None Seen) Urine Glucose Normal mg/dL (Normal) Other Laboratory Tests 08/08/24 05:44 Brief Hx & Hospital Course: see dictated note Condition at Discharge: Fair Final Diagnosis/Problems List abd pain Discharge Disposition: Home Discharge Instruct/Medications Diet: Cardiac 2g Na,low cholest Activity: No Restrictions, As Tolerated Follow Up/Referral: fu wi pcp in 1 wk Medications: resume home meds Discharge Statement: "Patient was advised to return to the ER or call 911 if any headaches, dizziness, shortness of breath, chest pain, abdominal pain, bleeding, fevers, or worsening of medical condition. Patient was counseled about treatment plan, medications, possible side effects, patientverbalized understanding. All questions were answered to the best of my ability. This discharge took greater then 30 minutes in planning, reviewing documentation, counseling the patient, and discussing with other team members." ASSESSMENT ASSESSMENT Assessment abd pain Date of Service: Aug 11, 2024 Billing Provider: HAROLDO BAIRD MD Common Visit Codes: 38701-SGS/OBS DISCH DAY >30min HAROLDO BAIRD MD Aug 11, 2024 10:13
--- NOTE | 2024-08-11 10:34 | DVHDS ---
DATE OF DISCHARGE: 08/11/2024 HISTORY OF PRESENT ILLNESS: The patient is a 49-year-old lady who was admitted with complaints of abdominal pain, nausea, vomiting and diarrhea. She has previous history of hernia repair, colostomy reversal as well as hypertension. She also has history of tobacco abuse. HOSPITAL COURSE: The patient had a CT of abdomen and pelvis that showed mild constipation along with a small anterior ventral hernia containing fat. The patient was seen in surgery consult by Dr. Guo who opined that the patient had no surgical indication at this time. GI evaluation was recommended. The patient was seen in GI consult by Dr. Rosalina Allred who recommended outpatient followup. The patient is seen by colorectal surgeon. The patient will be discharged to follow up with the primary care as well as colorectal surgery. FINAL DIAGNOSES: Therefore, * Abdominal pain with previous history of ventral hernia repair. * Hypertension. * Anxiety. * History of tobacco abuse. * Obesity. Time spent in discharge planning and review of plan with the patient and senior compensation consultant and social and political studies professor was 38 minutes. MD ADALID Alejandro/MICHEL TID: [id number] RECEIPT: [id number]
--- NOTE | 2024-08-11 12:47 | DVHPN2 ---
Progress Note Date Seen: Aug 11, 2024 Medical Necessity Reason Pt with a Central, PICC or Fol: No Objective vital signs Vital Sign Date Time Temp Pulse Resp B/P (MAP) Pulse Ox O2 Delivery O2 Flow Rate FiO2 08/11/24 11:44 98.1 82 20 143/94 (110) 97 98.1 08/11/24 10:00 Room Air 0.0 08/11/24 10:00 21 Total Intake and Output 08/10/24 08/10/24 08/11/24 15:00 23:00 07:00 Intake Total 378.75 ml 824 ml 1200 ml Balance 378.75 ml 824 ml 1200 ml medications Current Medications Medications Dose Ordered Sig/Pedro Route Start Time Stop Time Status Last Admin Dose Admin Gabapentin 600 mg TID PO 08/07/24 22:00 08/11/24 05:37 600 MG Losartan Potassium 25 mg DAILY PO 08/08/24 10:00 08/11/24 09:13 25 MG Patient Own Medication 1 tab BID PO 08/07/24 22:00 Acetaminophen/ Hydrocodone Bitart 1 tab Q4HP PRN PO 08/07/24 16:45 08/10/24 12:48 1 TAB Ondansetron HCl 4 mg Q4HP PRN IV 08/07/24 16:45 08/08/24 00:10 4 MG Acetaminophen 650 mg Q6HP PRN PO 08/07/24 16:45 Albuterol 2.5 mg Q4HPRN PRN NEB 08/07/24 17:00 Ipratropium Cammal 0.5 mg Q4HPRN PRN NEB 08/07/24 17:00 Diphenhydramine HCl 25 mg Q4HP PRN IV 08/07/24 22:00 08/11/24 07:29 25 MG Alprazolam 1 mg Q8HPRN PRN PO 08/09/24 11:15 08/11/24 09:14 1 MG Nicotine 1 patch DAILY TD 08/10/24 10:00 08/11/24 09:14 1 PATCH Lactulose 30 ml BID PO 08/09/24 22:00 08/10/24 21:13 30 ML Patient Own Medication 6 mg TIDPRN PRN PO 08/09/24 14:00 laboratory and microbiology Laboratory Tests 08/08/24 05:44 Test 08/08/24 05:44 Range/Units Serum Glucose 87 74-106 mg/dL Problem List/Assessment/Plan Problem List/Assessment/Plan 08/11/24 lengthy conversation, she claimed that her"rectum comes out when pushing to have bowel movement" and I asked her to go to the restroom and demonstrate it to me ,when she called me in in went in accompanied by a female(case review worker) and 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. Plan discussed with: Patient, Other MARIE SOTO MD Aug 11, 2024 12:47
[2024-08-11] MEDS: TIZANIDINE 4 MG TABLET PO PRN (13:39)
== END 2024-08-11 19:20 | disposition home or self-care (01) | DRG 395 ==
LOC: ER 10:00 → OVERFLOW 16:33 → CENTRAL 16:34
DX: K43.9 Ventral hernia without obstruction or gangrene (principal); K59.00 Constipation, unspecified; I10 Essential (primary) hypertension; F41.9 Anxiety disorder, unspecified; E66.9 Obesity, unspecified; Z90.710 Acquired absence of both cervix and uterus; Z82.49 Family history of ischemic heart disease and other diseases of the circulatory system; Z83.1 Family history of other infectious and parasitic diseases; Z83.3 Family history of diabetes mellitus; Z72.0 Tobacco use; Z79.899 Other long term (current) drug therapy; Z68.31 Body mass index [BMI] 31.0-31.9, adult
CPT/HCPCS: 36415; 74176; 80053; 81001; 83690; 85025; 87086; 96374; 96375; G0378; J2405

== ENCOUNTER 2024-09-25 09:52 | Inpatient (IN) | payer OTHER, MEDICAID ==
[~2024-09-25] VITALS: Ht 149.9 cm; Wt 78.0 kg
[~2024-09-25 09:52] MED LIST changes: +ALPR0.255 PO; +FAMO40TA7 PO; +IBAN1TAB2 PO; +LOS25T PO; +TAMS0.4C39 PO
--- NOTE | 2024-09-25 10:55 | ED.PDOC ---
History of Present Illness HPI Comments 49-year-old female whom is well known to this ER presents with a chief complaint of RUE pain, abdominal pain, nausea, vomiting and diarrhea. Patient states that her home health nurse told her that her mid-line in her right upper arm was infiltrated and that she should go to the ER. Patient states that she has an E.coli infection from an UTI and has been on IV ertapenem for 2 days. Patient is reporting that she has suprapubic abdomen pain and has "bad" diarrhea with vomiting episodes, and is unable to take anything p.o. without having diarrhea. Patient is stating that her right upper arm above her mid-line hurts. Chief Complaint: Tube Replacement Time Seen by MD: 10:22 Primary Care Provider: [facility] Notes: Medications, Allergies Allergies: Coded Allergies: NO KNOWN ALLERGIES (Unverified , 05/10/14) Home Meds Active Scripts Hydrocortone (Hydrocortisone 2.5%) 1 Applic Ap, 1 APPLIC DE QHSP PRN, #10 APPLIC Prov:STEVAN VERAS MD 01/31/24 Dicyclomine Hcl (BENTYL CAPSULE) 10 Mg Cp, 1 CAP PO TID, #90 CAP 11 Refills Prov:NICHO [employer]ICY ANALYST 01/05/24 Docusate Sodium (Colace) 100 Mg Cap, 1 CAP PO BID, #60 CAP Prov:STEVAN VERAS MD 10/28/23 Pantoprazole Sodium Sesquihydr (Protonix) 40 Mg Tab, 40 MG PO DAILY for 7 Days, #7 TAB Prov:CHANTAL STEWART MD 10/14/23 Reported Medications Hydrocodone-Acetaminophen (Hydrocodone Bitartrate/AC 10-325 mg) 1 Tab Tab, 1 TAB PO QID PRN for PAIN SCALE 7 THRU 10, TAB 09/25/24 Hctz (Hydrochlorothiazide) 25 Mg Tab, 25 MG PO DAILY, TAB 09/25/24 Losartan Potassium (Losartan Potassium) 100 Mg Tab, 100 MG PO DAILY for 30 Days, MG 09/25/24 Alprazolam (Alprazolam) 0.25 Mg Tab, 1 TAB PO BIDPRN PRN 08/07/24 Famotidine (Famotidine) 40 Mg Tab, 1 TAB PO QHSP PRN 08/07/24 Tamsulosin Hcl (Tamsulosin Hcl) 0.4 Mg Cap, 1 CAP PO DAILY 08/07/24 Duloxetine Hcl (Cymbalta) 60 Mg Cap, 1 CAP PO DAILY, #90 CAP 3 Refills 01/30/24 Sennosides-Docusate Sodium (Senokot S) 1 Tab Tab, 1 TAB PO BID, #30 TAB 10/14/23 Tizanidine Hydrochloride (Tizanidine Hcl) 4 Mg Tab, 4 MG PO TID, TAB 10/14/23 Gabapentin (Gabapentin) 600 Mg Tab, 1 TAB PO TID, #90 TAB 3 Refills 10/14/23 Discontinued Reported Medications Alprazolam (Xanax) 1 Mg Tab, 1 TAB PO DAILY PRN, #60 TAB 10/14/23 Information Source: Patient Mode of Arrival: Ambulatory Severity: Moderate Timing: Hours Duration: Since onset Prehospital treatment: None Past Medical History PAST MEDICAL HISTORY: HTN Surgical History: Cholecystectomy, Hernia Repair, Hysterectomy, Tubal Ligation MANAGER DISCOVERY History: Other Family History Family History: Reviewed,noncontributory to illness Social History Smoker: Cigarettes Alcohol: Denies ETOH Use Drugs: Denies Drug Use Lives In: Home Constitutional: denies: chills, diaphoresis, fatigue, fever, malaise, sweats, weakness, others EENTM: denies: blurred vision, double vision, ear bleeding, ear discharge, ear drainage, ear pain, ear ringing, eye pain, eye redness, hearing loss, mouth pain, mouth swelling, nasal discharge, nose bleeding, nose congestion, nose pain, photophobia, tearing, throat pain, throat swelling, voice changes, others Respiratory: denies: cough, hemoptysis, orthopnea, SOB at rest, shortness of breath, SOB with excertion, stridor, wheezing, others Cardiovascular: denies: chest pain, dizzy spells, diaphoresis, Dyspnea on exertion, edema, irregular heart beat, left arm pain, lightheadedness, palpitations, PND, syncope, others Gastrointestinal: reports: abdominal pain, diarrhea, nausea; denies: abdomen distended, blood streaked bowels, constipated, dysphagia, difficulty swallowing, hematemesis, melena, poor appetite, poor fluid intake, rectal bleeding, rectal pain, vomiting, others Genitourinary: denies: abnormal vagina bleeding, burning, dyspareunia, dysuria, flank pain, frequency, hematuria, incontinence, pain, , vagina discharge, urgency, others Neurological: denies: dizziness, fainting, headache, left sided numbness, left sided weakness, numbness, paresthesia, pre-existing deficit, right sided numbness, right sided weakness, seizure, speech problems, tingling, tremors, weakness, others Musculoskeletal: reports: muscle pain; denies: back pain, gout, joint pain, joint swelling, muscle stiffness, neck pain, others Integumetry: denies: bruises, change in color, change in hair/nails, dryness, laceration, lesions, lumps, rash, wounds, others Allergic/Immunocompromised: denies: Difficulty Healing, Frequent Infections, Hives, Itching, others Hematologic/Lymphatic: denies: anemia, blood clots, easy bleeding, easy bruising, swollen glands, others Endocrine: denies: excessive hunger, excessive sweating, excessive thirst, excessive urination, flushing, intolerance to cold, intolerance to heat, unexplained weight gain, unexplained weight loss, others Psychiatric: denies: anxiety, bipolar disorder, depression, hopeless, panic disorder, schizophrenia, sleepless, suicidal, others All Other Systems: Reviewed and Negative Physical Exam General Appearance: No Apparent Distress, Obese HEENT: PERRL/EOMI Neck: Full Range of Motion, Normal Inspection Respiratory: Lungs Clear, No Accessory Muscle Use, No Respiratory Distress, Normal Breath Sounds Cardiovascular: No Edema, No JVD, Regular Rate/Rhythm Breast Exam: Deferred Gastrointestinal: Soft, Tenderness (Left, central and right mid abdominal tenderness to palpation. No rebound or guarding.) Genitalia: Deferred Pelvic: Deferred Rectal: Deferred Extremities: Normal inspection, Normal range of motion, Non-tender, No pedal edema Neurologic: Alert (Oriented x4), Normal Affect, Normal Mood, Other (Ambulatory. No gross focal deficit.) Cerebellar Function: NOT DONE Reflexes: NOT DONE Skin: Dry, Normal Color, Warm Lymphatic: NOT DONE Was a procedure done? Was a procedure done?: No Differential Dx Considerations may include: Colitis including C diff, diverticular disease, gastroenteritis, electrolyte imbalance, hypovolemia/dehydration, JOB, sepsis, among others X-Ray, Labs, Meds, VS Vital Signs Date Time Temp Pulse Resp B/P (MAP) Pulse Ox O2 Delivery O2 Flow Rate FiO2 09/25/24 12:35 73 16 138/73 (94) 97 09/25/24 10:33 99.1 91 17 120/51 (74) 98 99.1 09/25/24 10:33 91 17 98 Room Air 09/25/24 10:08 97.7 80 18 144/99 (114) 98 97.7 Lab Test 09/25/24 10:47 Range/Units White Blood Count 7.6 4.4-10.8 10^3/uL Red Blood Count 5.20 4.0-5.20 10^6/uL Hemoglobin 16.2 12.2-16.2 g/dL Hematocrit 48.0 H 36.0-46.0 % Mean Corpuscular Volume 92.3 80.0-100.0 fL Mean Corpuscular Hemoglobin 31.1 28.0-32.0 pg Mean Corpuscular Hemoglobin Concent 33.7 32.0-36.0 g/dL Red Cell Distribution Width 14.5 H 11.8-14.3 % Platelet Count 340 140-450 10^3/uL Mean Platelet Volume 7.5 6.9-10.8 fL Neutrophils (%) (Auto) 54.7 37.0-80.0 % Lymphocytes (%) (Auto) 36.5 10.0-50.0 % Monocytes (%) (Auto) 6.5 0.0-12.0 % Eosinophils (%) (Auto) 1.3 0.0-7.0 % Basophils (%) (Auto) 1.0 0.0-2.0 % Neutrophils # (Auto) 4.2 1.6-8.6 10 ^3/uL Lymphocytes # (Auto) 2.8 0.4-5.4 10 ^3/uL Monocytes # (Auto) 0.5 0-1.3 10 ^3/uL Eosinophils # (Auto) 0.1 0-0.8 10 ^3/uL Basophils # (Auto) 0.1 0-0.2 10 ^3/uL Nucleated Red Blood Cells 0.2 % Sodium Level 140 136-145 mmol/L Potassium Level 4.1 3.5-5.1 mmol/L Chloride Level 110 H 98-107 mmol/L Carbon Dioxide Level 20 20-31 mmol/L Anion Gap 10 5-15 Blood Urea Nitrogen 14 9-23 mg/dL Creatinine 0.60 0.550-1.02 mg/dL Glomerular Filtration Rate Calc 109 >90 mL/min BUN/Creatinine Ratio 23.3 H 10.0-20.0 Serum Glucose 100 74-106 mg/dL Lactic Acid Level 1.1 0.4-2.0 mmol/L Calcium Level 9.4 8.7-10.4 mg/dL Total Bilirubin 0.3 0.2-1.0 mg/dL Aspartate Amino Transferase (AST) 14 13-40 U/L Alanine Aminotransferase (ALT) 18 7-40 U/L Alkaline Phosphatase 111 46-116 U/L C-Reactive Protein High Sensitivity 0.23 <1.0 mg/dL Total Protein 7.2 5.7-8.2 g/dL Albumin 4.7 3.2-4.8 g/dL Beta HCG, Quantitative 1.4 L 1.5-4.2 mIU/mL Current Medications Medications (Trade) Dose Ordered Sig/Pedro Route Start Time Stop Time Status Last Admin Sodium Chloride 1,000 ml @ 1,000 mls/hr Q1H ONCE IV 09/25/24 10:30 09/25/24 11:29 DC 09/25/24 11:09 Ondansetron HCl (Zofran) 4 mg ONCE ONCE IV 09/25/24 10:30 09/25/24 10:31 DC 09/25/24 11:22 Metronidazole 100 ml @ 100 mls/hr ONCE ONCE IV 09/25/24 10:30 09/25/24 11:29 DC 09/25/24 11:23 Piperacillin Sod/ Tazobactam Sod 100 ml @ 100 mls/hr Q8H IV 09/25/24 14:45 09/25/24 21:49 Lactated Ringer's 1,000 ml @ 75 mls/hr [id number] ONCE IV 09/25/24 14:45 09/26/24 04:04 09/25/24 15:28 Acetaminophen/ Hydrocodone Bitart ([place] 5/325MG Tab) 1 tab Q4HP PRN PO 09/25/24 14:45 09/25/24 15:35 Alprazolam (Xanax Tablet) 0.25 mg BIDPRN PRN PO 09/25/24 14:45 09/25/24 21:33 PATIENT: SPARKSCLAUDIAACCT: [id number]: [id number] : 1975 LOC: ER ROOM / BED: / AGE / SEX: 49 / F ADM STATUS: REG ER SERVICE 1028 ORDERING PHYSICIAN: YUE FLYNN MD PROCEDURE(s): ABPL - CT AB PEL WO CON-NO ORAL OR IV REASON: low abd pain diarrhea vomiting ORDER NUMBER(s): [id number], ACCESSION NUMBER(s): [id number] Exam: CT CT AB PEL WO CON-NO ORAL OR IV History: low abd pain diarrhea vomiting Comparison Study: CT CT AB PEL WO CON-NO ORAL OR IV on DOS: 08/07/24 Technique: Multidetector spiral CT of the abdomen was performed from lung bases to pubic symphysis. Imaging was performed without IV contrast. Axial, coronal and sagittal multiplanar reformats were obtained from the axial data set by the technologist. Radiation Dose : 1. Abdomen/Pelvis: CTDIvol 10.57 mGy, DLP 506.59 mGy*cm. Findings: Evaluation of solid organs is limited due to lack of intravenous contrast use. Lung Bases: Mild linear atelectasis in the lung bases. Liver: There are a few cysts and subcentimeter hypodensities that are too small to characterize in the liver. The largest cyst measures up to 2.7 x 2.3 cm. Findings are similar compared to prior. Gallbladder and Biliary Tree: Gallbladder is surgically absent. Spleen: Spleen is normal in size. There are a couple of punctate calcifications in the spleen which is unchanged. Pancreas: The pancreas is grossly normal in appearance. Adrenal Glands: Unremarkable Kidneys: Few punctate nonobstructing bilateral renal calculi. No evidence of hydronephrosis. Bladder: Grossly unremarkable for degree of distention. Bowel: The stomach is grossly normal in appearance. The appendix is not visualized; however, no secondary findings of acute appendicitis identified. Postsurgical changes of bowel with surgical anastomosis seen at the terminal ileum and in the sigmoid colon there is mild fluid-filled distention of the terminal ileum measuring the proximal small bowel segments are nondilated. There is mild colonic diverticulosis without evidence of diverticulitis. There is wall thickening in the ascending and transverse colon. Ascites: Absent Lymphadenopathy: No mesenteric, retroperitoneal or periportal lymphadenopathy. Abdominal Wall and Mesentery: Postsurgical changes of the ventral abdominal wall. Small fat containing mid ventral abdominal wall hernia is unchanged from prior. A couple of small calcified foci in the lower abdominal mesentery are unchanged. Vasculature: The visualized abdominal aorta is normal in size and caliber. Evaluation of abdominal and pelvic vessels is limited due to lack of intravenous contrast. Pelvic Organs: The uterus is surgically absent. Musculoskeletal: No aggressive focal bony lesions, acute fractures or dislocation. Grade 1 anterolisthesis L4/L5. IMPRESSION: 1. Wall thickening in the transverse and ascending colon could be due to poor distention versus colitis. 2. Postsurgical changes of bowel with an anastomosis seen at the terminal ileum and at the sigmoid colon. There is mild fluid-filled prominence in the terminal ileum adjacent to the anastomotic site. The more proximal small bowel is nondilated so obstruction is unlikely. 3. Ventral abdominal wall irregularity secondary to previous surgery. 4. Mild colonic diverticulosis without evidence of diverticulitis. 5. Punctate nonobstructing nephrolithiasis. Radiation optimization: All CT scans at this facility use at least one of these dose optimization techniques: automated exposure control mA and/or kV adjustment per patient size (includes targeted exams where dose is matched to clinical indication) or iterative reconstruction. ATED BY: JONNY LEE DO DICTATED DATE/TIME: 09/25/244 SIGNED BY: JONNY LEE DO SIGNED DATE/TIME: 09/25/24 1224 X-Ray, Labs, Meds, VS Comment 49-year-old female with a history of hypertension and current E coli UTI on ertapenem presenting with an infiltrated right upper extremity midline and nausea, vomiting and diarrhea Vitals remarkable for BP 144/99 Exam remarkable for left-sided, central and mid abdominal tenderness to palpation Rhythm strip independently interpreted by me: Sinus rhythm, rate 80, no ectopy. CT abdomen and pelvis IMPRESSION: 1. Wall thickening in the transverse and ascending colon could be due to poor distention versus colitis. 2. Postsurgical changes of bowel with an anastomosis seen at the terminal ileum and at the sigmoid colon. There is mild fluid-filled prominence in the terminal ileum adjacent to the anastomotic site. The more proximal small bowel is nondilated so obstruction is unlikely. 3. Ventral abdominal wall irregularity secondary to previous surgery. 4. Mild colonic diverticulosis without evidence of diverticulitis. 5. Punctate nonobstructing nephrolithiasis. CBC, CMP and lactate unremarkable for any abnormality of acute significance. Patient treated with the following in the ED: Flagyl 500 mg IV On re-evaluation, patient states her diarrhea has become worse after drinking water. Plan is to admit the patient for IV antibiotic treatment for possible C diff colitis. Time of 1ST Reevaluation: 10:52 Reevaluation 1ST: Unchanged Patient Education/Counseling: Diagnosis, Treatment, Prognosis Family Education/Counseling: No Family Present Departure 1 Departure Time of Disposition: 13:58 Impression: Primary Impression: Colitis Disposition: 09 ADMITTED INPATIENT Admit to: Med Surg Condition: Fair Critical Care Note Critical Care Time?: No Stability Stability form required: No Heart Score Heart Score: Heart Score Response (Comments) Value History N/A 0 EKG N/A 0 Age N/A 0 Risk Factors N/A 0 Troponin N/A 0 Total 0 I personally scribed for YUE FLYNN MD ([email or web address]) on 09/25/24 at 10:55. Electronically submitted by Michael Cardoso ([email or web address]). I personally scribed for YUE FLYNN MD ([email or web address]) on 09/25/24 at 12:34. Electronically submitted by Michael Cardoso ([email or web address]). YUE FLYNN MD Sep 25, 2024 10:55
[2024-09-25 11:04] LABS: Basophils # (auto) 0.1 10 ^3/uL (0-0.2); Eosinophils # (auto) 0.1 10 ^3/uL (0-0.8); Eosinophils % (auto) 1.3 % (0.0-7.0); Hemoglobin 16.2 g/dL (12.2-16.2); Lymphocytes # (auto) 2.8 10 ^3/uL (0.4-5.4); Lymphocytes % (auto) 36.5 % (10.0-50.0); Mean Corpuscular Hemoglobin 31.1 pg (28.0-32.0); Mean Corpuscular Hgb Conc. 33.7 g/dL (32.0-36.0); Mean Corpuscular Volume 92.3 fL (80.0-100.0); Monocytes # (auto) 0.5 10 ^3/uL (0-1.3); Monocytes % (auto) 6.5 % (0.0-12.0); Neutrophils # (auto) 4.2 10 ^3/uL (1.6-8.6); Neutrophils % (auto) 54.7 % (37.0-80.0); Nucleated Red Blood Cells % 0.2 %; Platelet Count (auto) 340 10^3/uL (140-450); Red Cell Distribution Width 14.5 % (11.8-14.3); White Blood Cell 7.6 10^3/uL (4.4-10.8)
[2024-09-25] MEDS: SODIUM CHLORIDE 0.9% 1,000 ML IV ONE (11:09)
[2024-09-25] MEDS: ONDANSETRON HCL 4 MG/2 ML VIAL IV ONE (11:22)
[2024-09-25] MEDS: metroNIDAZOLE 500MG/100ML 100 ML IV ONE (11:23)
[2024-09-25 11:24] LABS: Alanine Aminotransferase 18 U/L (7-40); Alkaline Phosphatase 111 U/L (46-116)
[2024-09-25 11:25] LABS: Albumin 4.7 g/dL (3.2-4.8); Anion Gap 10 (5-15); Aspartate Aminotransferase 14 U/L (13-40); BUN/Creatinine Ratio 23.3 (10.0-20.0); Bilirubin, Total 0.3 mg/dL (0.2-1.0); Blood Urea Nitrogen 14 mg/dL (9-23); Calcium 9.4 mg/dL (8.7-10.4); Carbon Dioxide 20 mmol/L (20-31); Glucose 100 mg/dL (74-106); Potassium 4.1 mmol/L (3.5-5.1); Sodium 140 mmol/L (136-145); Total Protein 7.2 g/dL (5.7-8.2)
[2024-09-25 11:27] LABS: Chloride 110 mmol/L (98-107)
--- NOTE | 2024-09-25 12:26 | DVH ---
Exam: CT CT AB PEL WO CON-NO ORAL OR IV History: low abd pain diarrhea vomiting Comparison Study: CT CT AB PEL WO CON-NO ORAL OR IV on DOS: 08/07/24 Technique: Multidetector spiral CT of the abdomen was performed from lung bases to pubic symphysis. Imaging was performed without IV contrast. Axial, coronal and sagittal multiplanar reformats were ob tained from the axial data set by the technologist. Radiation Dose : 1. Abdomen/Pelvis: CTDIvol 10.57 mGy, DLP 506.59 mGy*cm. Findings: Evaluation of solid organs is limited due to lack of intravenous contrast use. Lung Bases: Mild linear atelectasis in the lung bases. Liver: There are a few cysts and subcentimeter hypodensities that are too small to characterize in th e liver. The largest cyst measures up to 2.7 x 2.3 cm. Findings are similar compared to prior. Gallbladder and Biliary Tree: Gallbladder is surgically absent. Spleen: Spleen is normal in size. There are a couple of punctate calcifications in the spleen which is unchanged. Pancreas: The pancreas is grossly normal in appearance. Adrenal Glands: Unremarkable Kidneys: Few punctate nonobstructing bilateral renal calculi. No evidence of hydronephrosis. Bladder: Grossly unremarkable for degree of distention. Bowel: The stomach is grossly normal in appearance. The appendix is not visualized; however, no sec ondary findings of acute appendicitis identified. Postsurgical changes of bowel with surgical anastom osis seen at the terminal ileum and in the sigmoid colon there is mild fluid-filled distention of the terminal ileum measuring the proximal small bowel segments are nondilated. There is mild colonic div erticulosis without evidence of diverticulitis. There is wall thickening in the ascending and transve rse colon. Ascites: Absent Lymphadenopathy: No mesenteric, retroperitoneal or periportal lymphadenopathy. Abdominal Wall and Mesentery: Postsurgical changes of the ventral abdominal wall. Small fat containin g mid ventral abdominal wall hernia is unchanged from prior. A couple of small calcified foci in the lower abdominal mesentery are unchanged. Vasculature: The visualized abdominal aorta is normal in size and caliber. Evaluation of abdominal a nd pelvic vessels is limited due to lack of intravenous contrast. Pelvic Organs: The uterus is surgically absent. Musculoskeletal: No aggressive focal bony lesions, acute fractures or dislocation. Grade 1 anterolist hesis L4/L5. IMPRESSION: 1. Wall thickening in the transverse and ascending colon could be due to poor distention versus colit is. 2. Postsurgical changes of bowel with an anastomosis seen at the terminal ileum and at the sigmoid co erwin. There is mild fluid-filled prominence in the terminal ileum adjacent to the anastomotic site. Th e more proximal small bowel is nondilated so obstruction is unlikely. 3. Ventral abdominal wall irregularity secondary to previous surgery. 4. Mild colonic diverticulosis without evidence of diverticulitis. 5. Punctate nonobstructing nephrolithiasis. Radiation optimization: All CT scans at this facility use at least one of these dose optimization orse hniques: automated exposure control mA and/or kV adjustment per patient size (includes targeted exam s where dose is matched to clinical indication) or iterative reconstruction.
[2024-09-25] MEDS ORDERED: DOCUSATE SOD 100 MG CAP PO PRN (14:45)
[2024-09-25] MEDS ORDERED: ACETAMINOPHEN 325 MG TAB PO PRN (14:45)
--- NOTE | 2024-09-25 14:56 | DVHHP2 ---
Admitting Diagnosis: Abdominal pain History of Present Illness 49-year-old female whom is well known to this ER presents with a chief complaint of muscle pain, abdominal pain, nausea, and vomiting. Patient states that her home health nurse told her that her mid-line in her right upper arm was infiltrated and that she should go to the ER. Patient states that she has an E.coli infection from an UTI and has been on home antibiotics for 2 days. Patient is reporting that she has suprapubic abdomen pain and has "bad" diarrhea with vomiting episodes. Patient is stating that her right upper arm above her mid-line hurts. PAST MEDICAL HISTORY: HTN Surgical History: Cholecystectomy, Hernia Repair, Hysterectomy, Tubal Ligation CARPET INSTALLER History: Other Family History: Reviewed,noncontributory to illness Social History Smoker: Cigarettes Alcohol: Denies ETOH Use Drugs: Denies Drug Use Lives In: Home Patient Family History: Diabetes mellitus G8 MOTHER G8 FATHER FH: cancer Hypertension G8 MOTHER G8 FATHER Allergies: Coded Allergies: NO KNOWN ALLERGIES (Unverified , 05/10/14) Home Meds Active Scripts Prednisone (Prednisone) 20 Mg Tab, 20 MG PO DAILY for 5 Days, #5 MG Prov:NICHO COELLOP 07/12/24 Tamsulosin Hcl (Flomax) 0.4 Mg Cap, 1 CAP PO DAILY for 10 Days, #10 CAP 11 Refills Prov:NICHO COELLO BOARD WINDER 07/12/24 Naproxen (NAPROSYN TABLET) 500 Mg Tb, 1 TAB PO BID PRN, #60 TAB 1 Refill Prov:NICHO COELLO 07/12/24 Polyethylene Glycol 3350 (Miralax) 17 Gm Pow, 17 GM PO BIDPRN PRN for 2 Days, #4 POW Prov:GISSEL RAMOS MD 06/22/24 Alprazolam (Xanax) 0.25 Mg Tb, 1 TAB PO BID PRN, #15 TAB Prov:STEVAN VERAS MD 06/02/24 Tramadol HCl (Tramadol HCl) 50 Mg Tab, 50 MG PO Q6HP PRN, #15 TAB Prov:STEVAN VERAS MD 06/02/24 Amoxicillin & Pot Clavulanate (AUGMENTIN TABLET) 875 Mg Tb, 875 MG PO BID for 7 Days, #14 TAB Prov:STEVAN VERAS MD 02/08/24 Dextromethorphan-Guaifenesin (Robitussin-Dm) 10 Ml Sr, 10 ML PO Q6HP PRN, #120 ML Prov:STEVAN VERAS MD 01/31/24 Hydrocortone (Hydrocortisone 2.5%) 1 Applic Ap, 1 APPLIC [place] QHSP PRN, #10 APPLIC Prov:STEVAN VERAS MD 01/31/24 Ondansetron Odt 4MG Tab (ZOFRAN PO) 4 Mg Tb, 4 MG PO TID PRN for 3 Days, #9 TAB 0 Refills ODT TAB-DISSOLVE IN MOUTH, THEN SWALLOW Prov:MALLORY THOMAS MD 01/19/24 Miconazole Nitrate Vaginal (Monistat 7 Combination Pa 100 & 2 mg-% (9Gm)) 1 Kit Kit, 1 KIT VA DAILY, #1 KIT 0 Refills Follow instructions on package insert and take as prescribed. Prov:MALLORY THOMAS MD 01/19/24 Dicyclomine Hcl (BENTYL CAPSULE) 10 Mg Cp, 1 CAP PO TID, #90 CAP 11 Refills Prov:NICHO COELLO BOARD WINDER 01/05/24 Hydrocodone-Acetaminophen (Hydrocodone Bitartrate/AC 5-325 mg) 1 Tab Tab, 1 TAB PO Q6HP PRN, #30 TAB Prov:STEVAN VERAS MD 11/07/23 Loperamide Hcl (Imodium) 2 Mg Cp, 2 MG PO PRN PRN, #30 CAP Prov:STEVAN VERAS MD 11/07/23 Docusate Sodium (Colace) 100 Mg Cap, 1 CAP PO BID, #60 CAP Prov:STEVAN VERAS MD 10/28/23 Pantoprazole Sodium Sesquihydr (Protonix) 40 Mg Tab, 40 MG PO DAILY for 7 Days, #7 TAB Prov:CHANTAL STEWART MD 10/14/23 Reported Medications Alprazolam (Alprazolam) 0.25 Mg Tab, 1 TAB PO BIDPRN PRN 08/07/24 Famotidine (Famotidine) 40 Mg Tab, 1 TAB PO QHSP PRN 08/07/24 Ibandronate Sodium (IBANDRONATE SODIUM) 150 Mg Tab, 1 TAB PO 08/07/24 Losartan Potassium (Losartan Potassium) 25 Mg Tab, 1 TAB PO DAILY 08/07/24 Tamsulosin Hcl (Tamsulosin Hcl) 0.4 Mg Cap, 1 CAP PO DAILY 08/07/24 Guaifenesin-Codeine (Robitussin/Codeine) 10 Ml So, 5 ML PO Q6HR, #120 ML 01/31/24 Duloxetine Hcl (Cymbalta) 60 Mg Cap, 1 CAP PO DAILY, #90 CAP 3 Refills 01/30/24 Oxycodone Hcl (OxyCONTIN ER Tablet) 10 Mg Tb, 10 MG PO TIDP PRN for BREAKTHROUGH PAIN, TAB 10/14/23 Sennosides-Docusate Sodium (Senokot S) 1 Tab Tab, 1 TAB PO BID, #30 TAB 10/14/23 Tizanidine Hydrochloride (Tizanidine Hcl) 4 Mg Tab, 4 MG PO TID, TAB 10/14/23 Alprazolam (Xanax) 1 Mg Tab, 1 TAB PO DAILY PRN, #60 TAB 10/14/23 Gabapentin (Gabapentin) 600 Mg Tab, 1 TAB PO TID, #90 TAB 3 Refills 10/14/23 Lisinopril (Lisinopril) 40 Mg Tab, 1 TAB PO DAILY, #30 TAB 5 Refills 10/14/23 Vital Signs Vital Signs Date Time Temp Pulse Resp B/P (MAP) Pulse Ox O2 Delivery O2 Flow Rate FiO2 09/25/24 12:35 73 16 138/73 (94) 97 09/25/24 10:33 99.1 99.1 09/25/24 10:33 Room Air Physical Exam Generally years old woman, well nourished well developed. Mild distress HEENT-atraumatic normocephalic Heart-regular rate and rhythm Lungs clear to auscultate Abdomen soft, moderate tender, nondistended Musculoskeletal-no edema cyanosis Neuro-AO x3, no focal deficits Results Labs Test 09/25/24 10:47 Range/Units White Blood Count 7.6 4.4-10.8 10^3/uL Red Blood Count 5.20 4.0-5.20 10^6/uL Hemoglobin 16.2 12.2-16.2 g/dL Hematocrit 48.0 H 36.0-46.0 % Mean Corpuscular Volume 92.3 80.0-100.0 fL Mean Corpuscular Hemoglobin 31.1 28.0-32.0 pg Mean Corpuscular Hemoglobin Concent 33.7 32.0-36.0 g/dL Red Cell Distribution Width 14.5 H 11.8-14.3 % Platelet Count 340 140-450 10^3/uL Mean Platelet Volume 7.5 6.9-10.8 fL Neutrophils (%) (Auto) 54.7 37.0-80.0 % Lymphocytes (%) (Auto) 36.5 10.0-50.0 % Monocytes (%) (Auto) 6.5 0.0-12.0 % Eosinophils (%) (Auto) 1.3 0.0-7.0 % Basophils (%) (Auto) 1.0 0.0-2.0 % Neutrophils # (Auto) 4.2 1.6-8.6 10 ^3/uL Lymphocytes # (Auto) 2.8 0.4-5.4 10 ^3/uL Monocytes # (Auto) 0.5 0-1.3 10 ^3/uL Eosinophils # (Auto) 0.1 0-0.8 10 ^3/uL Basophils # (Auto) 0.1 0-0.2 10 ^3/uL Nucleated Red Blood Cells 0.2 % Sodium Level 140 136-145 mmol/L Potassium Level 4.1 3.5-5.1 mmol/L Chloride Level 110 H 98-107 mmol/L Carbon Dioxide Level 20 20-31 mmol/L Anion Gap 10 5-15 Blood Urea Nitrogen 14 9-23 mg/dL Creatinine 0.60 0.550-1.02 mg/dL Glomerular Filtration Rate Calc 109 >90 mL/min BUN/Creatinine Ratio 23.3 H 10.0-20.0 Serum Glucose 100 74-106 mg/dL Lactic Acid Level 1.1 0.4-2.0 mmol/L Calcium Level 9.4 8.7-10.4 mg/dL Total Bilirubin 0.3 0.2-1.0 mg/dL Aspartate Amino Transferase (AST) 14 13-40 U/L Alanine Aminotransferase (ALT) 18 7-40 U/L Alkaline Phosphatase 111 46-116 U/L Total Protein 7.2 5.7-8.2 g/dL Albumin 4.7 3.2-4.8 g/dL Beta HCG, Quantitative 1.4 L 1.5-4.2 mIU/mL Primary Diagnosis Acute colitis Nausea and vomiting Plan Follows stool culture, rule out C diff Start Zosyn for broad-spectrum antibiotics. Follow up with the blood culture, stool culture and C diff. Adjust antibiotic according to the ID and sensitivity IV fluids for hydration Clear liquid diet. NPO if unable to tolerate Antiemetic Bowel regimen Pain control Full code Heparin for DVT prophylaxis PPI for GI prophylaxis Clear liquid diet Plan discussed with: Patient Problems List: (1) Colitis Status: Acute Date of Service: Sep 25, 2024 Billing Provider: BETH LEIJA MD Common Visit Codes: [id number] INP/OBS CARE (MOD) BETH LEIJA MD Sep 25, 2024 14:56
[2024-09-25] MEDS ORDERED: hydrALAZINE HCL 20 MG/ML VL IV PRN (15:00)
[2024-09-25] MEDS: LACTATED RINGER'S 1,000 ML IV ONE (15:28)
[2024-09-25] MEDS: HYDROcodone-ACET 5/325MG TAB PO PRN (15:35)
[2024-09-25] MEDS: PIPERACILLIN-TAZOB 3.375GM 100 ML IV SCH (15:47)
[2024-09-25 17:43] LABS: Urine Bacteria None Seen /hpf (None Seen)
[2024-09-25 17:55] LABS: Urine Blood Negative /uL (Negative); Urine Clarity Clear (Clear); Urine Color Colorless (Yellow); Urine Mucus FEW (None Seen); Urine Protein, UAD Negative (Negative); Urine Specific Gravity 1.009 (1.001-1.035); Urine Squamous Epithelial Cell FEW /hpf (<5); Urine Urobilinogen Normal (Negative); Urine WBC 1 /HPF (0-5)
[2024-09-25 18:32] VITALS: PULSE 59; RESP 20; O2SAT 99
[2024-09-25] MEDS ORDERED: LOSA-535 PO (19:16)
[2024-09-25] MEDS ORDERED: HYDR25TA5 PO (19:16)
[2024-09-25] MEDS ORDERED: HYDR-4798 PO (19:16)
[2024-09-25 19:27] VITALS: BP 101/81; PULSE 59; RESP 20; TEMP 97.4; O2SAT 99
[2024-09-25 21:00] VITALS: BP 131/75; PULSE 60; RESP 20; TEMP 98; O2SAT 98
[2024-09-25] MEDS: SENNOSIDES DOCUSATE SODIUM PO SCH (21:27)
[2024-09-25] MEDS: TIZANIDINE HYDROCHLORIDE 4 MG PO SCH (21:27)
[2024-09-25] MEDS: DICYCLOMINE HCL 10 MG CAP PO SCH (21:33)
[2024-09-25] MEDS: ALPRAZolam 0.25 MG TAB PO PRN (21:33)
[2024-09-25] MEDS: SODIUM CHLOR 0.9% PF (SALINE LOCK) 10ML VIAL/SYR IV SCH (21:49)
[2024-09-25] MEDS ORDERED: DOCUSATE SOD 100 MG CAP PO SCH (22:00)
[2024-09-25] MEDS ORDERED: GABAPENTIN 300 MG CAP PO SCH (22:00)
[2024-09-26] VITALS (8 sets, daily range): BP systolic 107–142; BP diastolic 63–95; PULSE 57–68; RESP 15–20; TEMP 97.5–98.2; O2SAT 94–98
[2024-09-26 07:00] LABS: Basophils # (auto) 0.1 10 ^3/uL (0-0.2); Eosinophils # (auto) 0.2 10 ^3/uL (0-0.8); Eosinophils % (auto) 4.1 % (0.0-7.0); Hematocrit 41.8 % (36.0-46.0); Hemoglobin 14.2 g/dL (12.2-16.2); Lymphocytes # (auto) 2.2 10 ^3/uL (0.4-5.4); Lymphocytes % (auto) 40.7 % (10.0-50.0); Mean Corpuscular Hemoglobin 31.2 pg (28.0-32.0); Mean Corpuscular Volume 91.9 fL (80.0-100.0); Monocytes # (auto) 0.5 10 ^3/uL (0-1.3); Monocytes % (auto) 8.7 % (0.0-12.0); Neutrophils # (auto) 2.5 10 ^3/uL (1.6-8.6); Neutrophils % (auto) 45.5 % (37.0-80.0); Nucleated Red Blood Cells % 0.1 %; Platelet Count (auto) 292 10^3/uL (140-450); Red Blood Cells 4.55 10^6/uL (4.0-5.20); Red Cell Distribution Width 14.7 % (11.8-14.3); White Blood Cell 5.5 10^3/uL (4.4-10.8)
[2024-09-26 07:15] LABS: Alanine Aminotransferase 18 U/L (7-40); Alkaline Phosphatase 91 U/L (46-116); Anion Gap 9 (5-15); Aspartate Aminotransferase 15 U/L (13-40); BUN/Creatinine Ratio 12.1 (10.0-20.0); Bilirubin, Total 0.5 mg/dL (0.2-1.0); Carbon Dioxide 25 mmol/L (20-31); Glucose 97 mg/dL (74-106); Sodium 141 mmol/L (136-145); Total Protein 6.3 g/dL (5.7-8.2)
[2024-09-26 07:16] LABS: Blood Urea Nitrogen 7 mg/dL (9-23); Calcium 8.7 mg/dL (8.7-10.4); Chloride 107 mmol/L (98-107); Potassium 3.3 mmol/L (3.5-5.1)
[2024-09-26] MEDS: FAMOTIDINE 20 MG TAB PO SCH (09:22)
[2024-09-26] MEDS: DULoxetine HCL 30 MG CAP PO SCH (09:22)
[2024-09-26] MEDS: TAMSULOSIN HYDROCHLORIDE 0.4 MG CAP PO SCH (09:22)
[2024-09-26] MEDS ORDERED: PANTOPRAZOLE 40 MG TAB PO SCH (10:00)
--- NOTE | 2024-09-26 11:14 | DVHPN2 ---
Subjective 49 year old female who says she was diagnosed with UTI with a E coli ESBL and she had a midline and then was started on IV ertapenem which she received for 2 days before she came here however the midline in her right arm went bad and therefore she had to come to the hospital to get a new 1 She is also complaining of some abdominal pain but this is not new, she had surgeries on her abdomen and she is still having some abdominal pain however now she says she is having diarrhea No nausea or vomiting Changes from previous H/P or p: Changes Objective Vitals Vital Signs Date Time Temp Pulse Resp B/P (MAP) Pulse Ox O2 Delivery O2 Flow Rate FiO2 09/26/24 09:18 97.8 58 17 135/68 (90) 94 97.8 09/25/24 20:00 Room Air* 0 21 Intake/Output Intake and Output 09/26/24 07:00 Intake Total 1600 ml Balance 1600 ml Intake Oral 300 ml IV Total 1300 ml # Voids 2 General Appearance: Alert, Oriented X3, Cooperative Lungs: Clear to auscultation, Normal air movement Cardiovascular: Regular rate, Normal S1, Normal S2 Abdomen: Normal bowel sounds, Soft, Other (Mild generalized tenderness in the lower abdomen with no rebound tenderness) Extremities: No edema Medications Current Medications Medications Dose Ordered Sig/Pedro Route Start Time Stop Time Status Last Admin Dose Admin Piperacillin Sod/ Tazobactam Sod 100 ml @ 100 mls/hr Q8H IV 09/25/24 14:45 09/26/24 06:29 100 MLS/HR Sodium Chloride 10 ml Q8HR IV 09/25/24 22:00 09/26/24 06:28 10 ML Docusate Sodium 100 mg BIDPRN PRN PO 09/25/24 14:45 Acetaminophen 650 mg Q6HP PRN PO 09/25/24 14:45 Acetaminophen/ Hydrocodone Bitart 1 tab Q4HP PRN PO 09/25/24 14:45 09/26/24 09:21 1 TAB Hydromorphone HCl 0.5 mg Q4HP PRN IV 09/25/24 14:45 Ondansetron HCl 4 mg Q4HP PRN IV 09/25/24 14:45 Alprazolam 0.25 mg BIDPRN PRN PO 09/25/24 14:45 09/26/24 09:44 0.25 MG Dicyclomine HCl 10 mg TID PO 09/25/24 22:00 09/26/24 06:28 10 MG Docusate Sodium 100 mg BID PO 09/25/24 22:00 Hold Pantoprazole Sodium 40 mg DAILY PO 09/26/24 10:00 Hold Tamsulosin HCl 0.4 mg DAILY PO 09/26/24 10:00 09/26/24 09:22 0.4 MG Duloxetine HCl 60 mg DAILY PO 09/26/24 10:00 09/26/24 09:22 60 MG Famotidine 40 mg DAILY PO 09/26/24 10:00 09/26/24 09:22 40 MG Gabapentin 600 mg TID PO 09/25/24 22:00 Hold Patient Own Medication 1 tab BID PO 09/25/24 22:00 Patient Own Medication 4 mg TID PO 09/25/24 22:00 Hydralazine HCl 10 mg Q6H PRN IV 09/25/24 15:00 Laboratory Results Laboratory Tests 09/26/24 05:49 Chemistry Test 09/26/24 05:49 Albumin 4.0 g/dL (3.2-4.8) Calcium Level 8.7 mg/dL (8.7-10.4) Total Protein 6.3 g/dL (5.7-8.2) LFT Test 09/26/24 05:49 Alanine Aminotransferase (ALT) 18 U/L (7-40) Alkaline Phosphatase 91 U/L (46-116) Aspartate Amino Transferase (AST) 15 U/L (13-40) Total Bilirubin 0.5 mg/dL (0.2-1.0) Urinalysis Test 09/25/24 16:30 Urine Color Colorless (Yellow) Urine Clarity Clear (Clear) Urine pH 5.0 (5.0-9.0) Urine Specific [place] 1.009 (1.001-1.035) Urine Protein Negative (Negative) Urine Ketones Negative (Negative) Urine Blood Negative /uL (Negative) Urine Nitrite Negative (Negative) Urine Bilirubin Negative (Negative) Urine Urobilinogen Normal mg/dL (Negative) Urine Leukocyte Esterase Negative /uL (Negative) Urine RBC 1 /hpf (0 - 4) Urine Microscopic WBC 1 /HPF (0-5) Urine Squamous Epithelial Cells Few /hpf (<5) Urine Triple Phosphate Crystals Few /hpf (None Seen) Urine Bacteria None seen /hpf (None Seen) Urine Mucus Few (None Seen) Urine Glucose Normal mg/dL (Normal) Microbiology Microbiology Date/Time Source Procedure Growth Status 09/25/24 10:40 Blood Blood Culture - Preliminary NO GROWTH AFTER 24 HOURS OF INCUBATION. Resulted Assessment/Plan Assessment/Plan UTI, reportedly with E coli ESBL on ertapenem at home Abdominal pain Diarrhea Rule out C diff colitis Hypertension Hypokalemia Plan Continue IV antibiotics with Zosyn Check the stools for C diff Check the urine culture Resume the home medications gabapentin Replace potassium Plan discussed with: Patient My Orders Orders - STEVAN VERAS MD Procedure Category Date Status Time Urine Bacterial ONESIMO 09/26/24 In Process Culture 10:19 Date of Service: Sep 26, 2024 Billing Provider: STEVAN VERAS MD Common Visit Codes: NOT BILLABLE STEVAN VERAS MD Sep 26, 2024 11:14
[2024-09-26] MEDS: ONDANSETRON HCL 4 MG/2 ML VIAL IV PRN (12:42)
[2024-09-26] MEDS: POTASSIUM CHL 20 Meq TABLET PO ONE (12:42)
[2024-09-26] MEDS: HYDROmorphone HCL 2 MG/ML VL/or syr IV PRN (13:36)
[2024-09-26] MEDS: GABAPENTIN 300 MG CAP PO SCH (16:02)
--- NOTE | 2024-09-26 17:51 | DVHINCON2 ---
Date of service: Sep 26, 2024 History of Present Illness 49-year-old female admitted secondary to abdominal pain and nausea or vomiting. Patient's CT of the abdomen and pelvis showed colitis involving the ascending and transverse colon. Her stool came back positive for C diff. she also complains of rectal prolapse every time she has a bowel movement. She had a colonoscopy last year which apparently was negative according to the patient. Past Medical History Hypertension Past Surgical History Exploratory laparotomy with colon resection and ileostomy. Subsequent ileostomy reversal with hernia repair and appendectomy. Family History: Diabetes mellitus G8 MOTHER G8 FATHER FH: cancer Hypertension G8 MOTHER G8 FATHER Family History Noncontributory Social History Reports tobacco. Denies alcohol IV drug use Allergies: Coded Allergies: NO KNOWN ALLERGIES (Unverified , 05/10/14) Home Meds Active Scripts Hydrocortone (Hydrocortisone 2.5%) 1 Applic Ap, 1 APPLIC [place] QHSP PRN, #10 APPLIC Prov:STEVAN VERAS MD 01/31/24 Dicyclomine Hcl (BENTYL CAPSULE) 10 Mg Cp, 1 CAP PO TID, #90 CAP 11 Refills Prov:NICHO COELLO IT PROGRAMMER ANALYST 01/05/24 Docusate Sodium (Colace) 100 Mg Cap, 1 CAP PO BID, #60 CAP Prov:STEVAN VERAS MD 10/28/23 Pantoprazole Sodium Sesquihydr (Protonix) 40 Mg Tab, 40 MG PO DAILY for 7 Days, #7 TAB Prov:CHANTAL STEWART MD 10/14/23 Reported Medications Hydrocodone-Acetaminophen (Hydrocodone Bitartrate/AC 10-325 mg) 1 Tab Tab, 1 TAB PO QID PRN for PAIN SCALE 7 THRU 10, TAB 09/25/24 Hctz (Hydrochlorothiazide) 25 Mg Tab, 25 MG PO DAILY, TAB 09/25/24 Losartan Potassium (Losartan Potassium) 100 Mg Tab, 100 MG PO DAILY for 30 Days, MG 09/25/24 Alprazolam (Alprazolam) 0.25 Mg Tab, 1 TAB PO BIDPRN PRN 08/07/24 Famotidine (Famotidine) 40 Mg Tab, 1 TAB PO QHSP PRN 08/07/24 Tamsulosin Hcl (Tamsulosin Hcl) 0.4 Mg Cap, 1 CAP PO DAILY 08/07/24 Duloxetine Hcl (Cymbalta) 60 Mg Cap, 1 CAP PO DAILY, #90 CAP 3 Refills 01/30/24 Sennosides-Docusate Sodium (Senokot S) 1 Tab Tab, 1 TAB PO BID, #30 TAB 10/14/23 Tizanidine Hydrochloride (Tizanidine Hcl) 4 Mg Tab, 4 MG PO TID, TAB 10/14/23 Gabapentin (Gabapentin) 600 Mg Tab, 1 TAB PO TID, #90 TAB 3 Refills 10/14/23 Discontinued Reported Medications Alprazolam (Xanax) 1 Mg Tab, 1 TAB PO DAILY PRN, #60 TAB 10/14/23 Current Medications Current Medications Medications (Trade) Dose Ordered Sig/Pedro Route PRN Reason Start Time Stop Time Status Last Admin Sodium Chloride (Saline Lock Ns) 10 ml Q8HR IV 09/25/24 22:00 09/26/24 14:00 Dicyclomine HCl (Bentyl Capsule) 10 mg TID PO 09/25/24 22:00 09/26/24 16:02 Docusate Sodium (Colace Capsule) 100 mg BID PO 09/25/24 22:00 09/26/24 11:11 DC Pantoprazole Sodium (Protonix Tablet) 40 mg DAILY PO 09/26/24 10:00 09/26/24 11:11 DC Tamsulosin HCl (Flomax) 0.4 mg DAILY PO 09/26/24 10:00 09/26/24 09:22 Duloxetine HCl (Cymbalta Capsule) 60 mg DAILY PO 09/26/24 10:00 09/26/24 09:22 Famotidine (Pepcid Tablet) 40 mg DAILY PO 09/26/24 10:00 09/26/24 09:22 Gabapentin (Neurontin Capsule) 600 mg TID PO 09/25/24 22:00 09/26/24 12:32 DC Patient Own Medication 1 tab BID PO 09/25/24 22:00 Patient Own Medication 4 mg TID PO 09/25/24 22:00 Gabapentin (Neurontin Capsule) 600 mg TID PO 09/26/24 14:00 09/26/24 16:02 Metronidazole 100 ml @ 100 mls/hr Q8HR IV 09/26/24 22:00 Vancomycin HCl (Vancomycin Hydrochloride) 250 mg QID PO 09/26/24 18:00 Meropenem 50 ml @ 17 mls/hr Q8HR IV 09/26/24 22:00 Vital Signs Vital Signs Date Time Temp Pulse Resp B/P (MAP) Pulse Ox O2 Delivery O2 Flow Rate FiO2 09/26/24 16:48 97.8 68 16 142/88 (106) 98 97.8 09/26/24 08:00 Room Air* 0 21 Physical Exam GEN: Age-appropriate female in no acute distress. Alert. HEENT: Normocephalic atraumatic. Moist mucous membranes. Anicteric sclerae. CV: RRR Respiratory: CTAB ABD: Soft. Rectal. Currently there is no rectal prolapse noted. However on the picture there was findings consistent with a rectal prolapse without necrosis of the mucosa. This has been since reduced. Labs/Diagnostic Data Labs Test 09/26/24 05:49 09/25/24 19:23 09/25/24 16:30 09/25/24 10:47 Range/Units White Blood Count 5.5 # 4.4-10.8 10^3/uL Red Blood Count 4.55 4.0-5.20 10^6/uL Hemoglobin 14.2 12.2-16.2 g/dL Hematocrit 41.8 # 36.0-46.0 % Mean Corpuscular Volume 91.9 80.0-100.0 fL Mean Corpuscular Hemoglobin 31.2 28.0-32.0 pg Mean Corpuscular Hemoglobin Concent 34.0 32.0-36.0 g/dL Red Cell Distribution Width 14.7 H 11.8-14.3 % Platelet Count 292 140-450 10^3/uL Mean Platelet Volume 7.6 6.9-10.8 fL Neutrophils (%) (Auto) 45.5 37.0-80.0 % Lymphocytes (%) (Auto) 40.7 10.0-50.0 % Monocytes (%) (Auto) 8.7 0.0-12.0 % Eosinophils (%) (Auto) 4.1 0.0-7.0 % Basophils (%) (Auto) 1.0 0.0-2.0 % Neutrophils # (Auto) 2.5 1.6-8.6 10 ^3/uL Lymphocytes # (Auto) 2.2 0.4-5.4 10 ^3/uL Monocytes # (Auto) 0.5 0-1.3 10 ^3/uL Eosinophils # (Auto) 0.2 0-0.8 10 ^3/uL Basophils # (Auto) 0.1 0-0.2 10 ^3/uL Nucleated Red Blood Cells 0.1 % Sodium Level 141 136-145 mmol/L Potassium Level 3.3 L 3.5-5.1 mmol/L Chloride Level 107 98-107 mmol/L Carbon Dioxide Level 25 20-31 mmol/L Anion Gap 9 5-15 Blood Urea Nitrogen 7 L 9-23 mg/dL Creatinine 0.58 0.550-1.02 mg/dL Glomerular Filtration Rate Calc 110 >90 mL/min BUN/Creatinine Ratio 12.1 10.0-20.0 Serum Glucose 97 74-106 mg/dL Calcium Level 8.7 8.7-10.4 mg/dL Total Bilirubin 0.5 0.2-1.0 mg/dL Aspartate Amino Transferase (AST) 15 13-40 U/L Alanine Aminotransferase (ALT) 18 7-40 U/L Alkaline Phosphatase 91 46-116 U/L Total Protein 6.3 5.7-8.2 g/dL Albumin 4.0 3.2-4.8 g/dL Urine Color Colorless Yellow Urine Clarity Clear Clear Urine pH 5.0 5.0-9.0 Urine Specific [place] 1.009 1.001-1.035 Urine Protein Negative Negative Urine Ketones Negative Negative Urine Blood Negative Negative /uL Urine Nitrite Negative Negative Urine Bilirubin Negative Negative Urine Urobilinogen Normal Negative mg/dL Urine Leukocyte Esterase Negative Negative /uL Urine RBC 1 0 - 4 /hpf Urine Microscopic WBC 1 0-5 /HPF Urine Squamous Epithelial Cells Few <5 /hpf Urine Triple Phosphate Crystals Few None Seen /hpf Urine Bacteria None seen None Seen /hpf Urine Mucus Few None Seen Urine Glucose Normal Normal mg/dL Lactic Acid Level 1.1 0.4-2.0 mmol/L C-Reactive Protein High Sensitivity 0.23 <1.0 mg/dL Beta HCG, Quantitative 1.4 L 1.5-4.2 mIU/mL Microbiology Date/Time Source Procedure Growth Status 09/25/24 10:40 Blood Blood Culture - Preliminary NO GROWTH AFTER 24 HOURS OF INCUBATION. Resulted 09/25/24 10:28 Stool Clostridium difficile Toxin Assay - Final Complete Assessment 1. C diff colitis 2. Recurrent rectal prolapse currently reduced Plan/Recommendation 1. I recommend treating with C diff colitis 1st. Also recommend elective outpatient surgery for the rectal prolapse as it was now reduced and not an emergency. Plan discussed with: Patient JANE NATH MD Sep 26, 2024 17:51
[2024-09-26] MEDS: VANCOMYCIN HCL 250 MG CAP PO SCH (18:13)
[2024-09-26] MEDS: metroNIDAZOLE 500MG/100ML 100 ML IV SCH (21:38)
[2024-09-26] MEDS: MEROPENEM 1GM IVPB 50 ML IV SCH (23:28)
[2024-09-27 01:00] VITALS: BP 110/60; PULSE 47; RESP 15; TEMP 97.2; O2SAT 94
[2024-09-27 05:00] VITALS: BP 105/63; PULSE 50; RESP 15; TEMP 98.1; O2SAT 96
[2024-09-27 06:23] LABS: Basophils # (auto) 0.1 10 ^3/uL (0-0.2); Basophils % (auto) 1.2 % (0.0-2.0); Eosinophils # (auto) 0.2 10 ^3/uL (0-0.8); Eosinophils % (auto) 3.5 % (0.0-7.0); Hematocrit 37.7 % (36.0-46.0); Hemoglobin 13.1 g/dL (12.2-16.2); Lymphocytes # (auto) 3.2 10 ^3/uL (0.4-5.4); Lymphocytes % (auto) 48.4 % (10.0-50.0); Mean Corpuscular Hgb Conc. 34.8 g/dL (32.0-36.0); Mean Corpuscular Volume 92.1 fL (80.0-100.0); Monocytes # (auto) 0.6 10 ^3/uL (0-1.3); Monocytes % (auto) 8.3 % (0.0-12.0); Neutrophils # (auto) 2.6 10 ^3/uL (1.6-8.6); Neutrophils % (auto) 38.6 % (37.0-80.0); Nucleated Red Blood Cells % 0.3 %; Platelet Count (auto) 273 10^3/uL (140-450); Red Blood Cells 4.09 10^6/uL (4.0-5.20); Red Cell Distribution Width 14.5 % (11.8-14.3); White Blood Cell 6.7 10^3/uL (4.4-10.8)
[2024-09-27 06:38] LABS: Alanine Aminotransferase 15 U/L (7-40); Alkaline Phosphatase 81 U/L (46-116); Anion Gap 7 (5-15); Blood Urea Nitrogen 9 mg/dL (9-23); Carbon Dioxide 25 mmol/L (20-31); Glucose 95 mg/dL (74-106); Magnesium 2.1 mg/dL (1.6-2.6); Potassium 3.8 mmol/L (3.5-5.1); Sodium 141 mmol/L (136-145); Total Protein 6.1 g/dL (5.7-8.2)
[2024-09-27 06:39] LABS: Albumin 3.8 g/dL (3.2-4.8)
[2024-09-27 06:40] LABS: Aspartate Aminotransferase 12 U/L (13-40); Bilirubin, Total 0.4 mg/dL (0.2-1.0); Chloride 109 mmol/L (98-107)
[2024-09-27 09:00] VITALS: BP 123/76; PULSE 67; RESP 18; TEMP 97.5; O2SAT 95
[2024-09-27 13:00] VITALS: BP 125/76; PULSE 67; RESP 18; TEMP 97.5; O2SAT 95
--- NOTE | 2024-09-27 13:45 | DVHPN2 ---
Subjective c/o diarrhea c/o abd pain Changes from previous H/P or p: Changes Objective Vitals Vital Signs Date Time Temp Pulse Resp B/P (MAP) Pulse Ox O2 Delivery O2 Flow Rate FiO2 09/27/24 09:13 67 18 123/76 09/27/24 09:00 97.5 95 97.5 09/27/24 08:05 Room Air* 0 21 Intake/Output Intake and Output 09/27/24 07:00 Intake Total 2000 ml Output Total 600 ml Balance 1400 ml Intake Oral 1750 ml IV Total 250 ml Output Urine Total 600 ml # Voids 4 # Bowel Movements 8 General Appearance: Alert, Oriented X3, Cooperative Lungs: Clear to auscultation, Normal air movement Cardiovascular: Regular rate, Normal S1, Normal S2 Abdomen: Normal bowel sounds, Soft, Other (Mild generalized tenderness in the lower abdomen with no rebound tenderness) Extremities: No edema Medications Current Medications Medications Dose Ordered Sig/Pedro Route Start Time Stop Time Status Last Admin Dose Admin Sodium Chloride 10 ml Q8HR IV 09/25/24 22:00 09/27/24 06:00 10 ML Acetaminophen 650 mg Q6HP PRN PO 09/25/24 14:45 Acetaminophen/ Hydrocodone Bitart 1 tab Q4HP PRN PO 09/25/24 14:45 09/27/24 11:48 1 TAB Hydromorphone HCl 0.5 mg Q4HP PRN IV 09/25/24 14:45 09/27/24 09:13 0.5 MG Ondansetron HCl 4 mg Q4HP PRN IV 09/25/24 14:45 09/26/24 12:42 4 MG Alprazolam 0.25 mg BIDPRN PRN PO 09/25/24 14:45 09/27/24 11:47 0.25 MG Dicyclomine HCl 10 mg TID PO 09/25/24 22:00 09/27/24 05:24 10 MG Tamsulosin HCl 0.4 mg DAILY PO 09/26/24 10:00 09/27/24 09:13 0.4 MG Duloxetine HCl 60 mg DAILY PO 09/26/24 10:00 09/27/24 09:14 60 MG Famotidine 40 mg DAILY PO 09/26/24 10:00 09/27/24 09:14 40 MG Patient Own Medication 1 tab BID PO 09/25/24 22:00 Patient Own Medication 4 mg TID PO 09/25/24 22:00 Hydralazine HCl 10 mg Q6H PRN IV 09/25/24 15:00 Gabapentin 600 mg TID PO 09/26/24 14:00 09/27/24 05:24 600 MG Metronidazole 100 ml @ 100 mls/hr Q8HR IV 09/26/24 22:00 09/27/24 05:23 100 MLS/HR Vancomycin HCl 250 mg QID PO 09/26/24 18:00 09/27/24 11:48 250 MG Meropenem 50 ml @ 17 mls/hr Q8HR IV 09/26/24 22:00 09/27/24 05:29 17 MLS/HR Laboratory Results Laboratory Tests 09/27/24 05:17 Chemistry Test 09/27/24 05:17 Albumin 3.8 g/dL (3.2-4.8) Calcium Level 9.0 mg/dL (8.7-10.4) Magnesium Level 2.1 mg/dL (1.6-2.6) Total Protein 6.1 g/dL (5.7-8.2) LFT Test 09/27/24 05:17 Alanine Aminotransferase (ALT) 15 U/L (7-40) Alkaline Phosphatase 81 U/L (46-116) Aspartate Amino Transferase (AST) 12 U/L (13-40) L Total Bilirubin 0.4 mg/dL (0.2-1.0) Urinalysis Test 09/25/24 16:30 Urine Color Colorless (Yellow) Urine Clarity Clear (Clear) Urine pH 5.0 (5.0-9.0) Urine Specific [place] 1.009 (1.001-1.035) Urine Protein Negative (Negative) Urine Ketones Negative (Negative) Urine Blood Negative /uL (Negative) Urine Nitrite Negative (Negative) Urine Bilirubin Negative (Negative) Urine Urobilinogen Normal mg/dL (Negative) Urine Leukocyte Esterase Negative /uL (Negative) Urine RBC 1 /hpf (0 - 4) Urine Microscopic WBC 1 /HPF (0-5) Urine Squamous Epithelial Cells Few /hpf (<5) Urine Triple Phosphate Crystals Few /hpf (None Seen) Urine Bacteria None seen /hpf (None Seen) Urine Mucus Few (None Seen) Urine Glucose Normal mg/dL (Normal) Microbiology Microbiology Date/Time Source Procedure Growth Status 09/25/24 16:30 Voided Urine Urine Culture - Preliminary Resulted 09/25/24 10:40 Blood Blood Culture - Preliminary NO GROWTH AFTER 48 HOURS OF INCUBATION. Resulted 09/25/24 10:28 Stool Clostridium difficile Toxin Assay - Final Complete Assessment/Plan Assessment/Plan UTI, reportedly with E coli ESBL on ertapenem at home Abdominal pain Diarrhea Rule out C diff colitis Hypertension Hypokalemia Plan Continue IV antibiotics with Zosyn Check the stools for C diff Check the urine culture Resume the home medications gabapentin Replace potassium 09/27/24: C Diff colitis: IV Flagyl & PO Vanco Rectal prolapse: Outpatient f/u Abd pain: Percocet & Dilaudid prn Anxiety: Increase Xanax UTI: Meropenem, urine culture: p Hypokalemia: Better, replace po Diarrhea: Change diet to full liquids HTN: stable Plan discussed with: Patient My Orders Orders - STEVAN VERAS MD Procedure Category Date Status Time * Surgical Consult CONS 09/26/24 Transmitted Metronidazole PHA 09/26/24 In Process 500mg/100ml (Flagyl 22:00 Vancomycin Po PHA 09/26/24 In Process (Vancomycin 18:00 Meropenem 1gm Ivpb PHA 09/26/24 In Process (Merrem 1gm/ Ns) 22:00 Alprazolam Tablet PHA 09/27/24 Verified (Xanax Tablet) 13:30 Date of Service: Sep 27, 2024 Billing Provider: STEVAN VERAS MD Common Visit Codes: NOT BILLABLE STEVAN VERAS MD Sep 27, 2024 13:45
[2024-09-27] MEDS: POTASSIUM EFFERVESENT TAB 25 MEQ PO ONE (14:38)
[2024-09-27 17:00] VITALS: BP 150/78; PULSE 58; RESP 18; TEMP 97.9; O2SAT 96
[2024-09-27] MEDS: OXYCODONE W/ ACETAMINOPHEN 5/325MG TABLET PO PRN (18:46)
[2024-09-27 21:00] VITALS: BP 123/63; PULSE 58; RESP 17; TEMP 98; O2SAT 98
[2024-09-27] MEDS: ALPRAZolam 0.5 MG TAB PO PRN (23:28)
[2024-09-28] VITALS (7 sets, daily range): BP systolic 107–161; BP diastolic 76–90; PULSE 52–57; RESP 18–20; TEMP 97.6–98.4; O2SAT 95–99
[2024-09-28] MEDS: MEROPENEM 1GM IVPB 50 ML IV SCH ×2 (00:38→00:56)
[2024-09-28 06:45] LABS: Basophils # (auto) 0.1 10 ^3/uL (0-0.2); Basophils % (auto) 1.1 % (0.0-2.0); Eosinophils # (auto) 0.3 10 ^3/uL (0-0.8); Hematocrit 38.2 % (36.0-46.0); Hemoglobin 13.2 g/dL (12.2-16.2); Lymphocytes # (auto) 3.1 10 ^3/uL (0.4-5.4); Lymphocytes % (auto) 47.3 % (10.0-50.0); Mean Corpuscular Hemoglobin 31.6 pg (28.0-32.0); Mean Corpuscular Hgb Conc. 34.5 g/dL (32.0-36.0); Mean Corpuscular Volume 91.6 fL (80.0-100.0); Monocytes # (auto) 0.5 10 ^3/uL (0-1.3); Monocytes % (auto) 7.1 % (0.0-12.0); Neutrophils # (auto) 2.6 10 ^3/uL (1.6-8.6); Neutrophils % (auto) 40.5 % (37.0-80.0); Platelet Count (auto) 288 10^3/uL (140-450); Red Blood Cells 4.17 10^6/uL (4.0-5.20); Red Cell Distribution Width 14.3 % (11.8-14.3); White Blood Cell 6.4 10^3/uL (4.4-10.8)
[2024-09-28 06:46] LABS: Alanine Aminotransferase 15 U/L (7-40); Alkaline Phosphatase 87 U/L (46-116); Anion Gap 6 (5-15); Blood Urea Nitrogen 11 mg/dL (9-23); Calcium 8.8 mg/dL (8.7-10.4); Carbon Dioxide 28 mmol/L (20-31); Glucose 88 mg/dL (74-106); Sodium 143 mmol/L (136-145); Total Protein 6.1 g/dL (5.7-8.2)
[2024-09-28 06:47] LABS: Albumin 3.9 g/dL (3.2-4.8)
[2024-09-28 06:50] LABS: Aspartate Aminotransferase 10 U/L (13-40); Bilirubin, Total 0.3 mg/dL (0.2-1.0); Chloride 109 mmol/L (98-107)
--- NOTE | 2024-09-28 12:15 | DVHPN2 ---
Subjective She is still complaining of diarrhea and abdominal pain Her appetite is good however Changes from previous H/P or p: Changes Objective Vitals Vital Signs Date Time Temp Pulse Resp B/P (MAP) Pulse Ox O2 Delivery O2 Flow Rate FiO2 09/28/24 10:07 57 20 158/80 09/28/24 08:41 97.9 99 97.9 09/28/24 08:00 Room Air* 0 21 Intake/Output Intake and Output 09/28/24 07:00 Intake Total 1200 ml Balance 1200 ml Intake Oral 900 ml IV Total 300 ml # Voids 10 # Bowel Movements 8 General Appearance: Alert, Oriented X3, Cooperative Lungs: Clear to auscultation, Normal air movement Cardiovascular: Regular rate, Normal S1, Normal S2 Abdomen: Normal bowel sounds, Soft, Other (Mild generalized tenderness in the lower abdomen with no rebound tenderness) Extremities: No edema Medications Current Medications Medications Dose Ordered Sig/Pedro Route Start Time Stop Time Status Last Admin Dose Admin Sodium Chloride 10 ml Q8HR IV 09/25/24 22:00 09/28/24 06:04 10 ML Acetaminophen 650 mg Q6HP PRN PO 09/25/24 14:45 Hydromorphone HCl 0.5 mg Q4HP PRN IV 09/25/24 14:45 09/28/24 10:07 0.5 MG Ondansetron HCl 4 mg Q4HP PRN IV 09/25/24 14:45 09/26/24 12:42 4 MG Dicyclomine HCl 10 mg TID PO 09/25/24 22:00 09/28/24 06:04 10 MG Tamsulosin HCl 0.4 mg DAILY PO 09/26/24 10:00 09/28/24 10:06 0.4 MG Duloxetine HCl 60 mg DAILY PO 09/26/24 10:00 09/28/24 10:06 60 MG Famotidine 40 mg DAILY PO 09/26/24 10:00 09/28/24 10:06 40 MG Patient Own Medication 4 mg TID PO 09/25/24 22:00 Hydralazine HCl 10 mg Q6H PRN IV 09/25/24 15:00 Gabapentin 600 mg TID PO 09/26/24 14:00 09/28/24 06:05 600 MG Metronidazole 100 ml @ 100 mls/hr Q8HR IV 09/26/24 22:00 09/28/24 06:04 100 MLS/HR Vancomycin HCl 250 mg QID PO 09/26/24 18:00 09/28/24 11:51 250 MG Alprazolam 0.5 mg Q8H PRN PO 09/27/24 13:30 09/28/24 12:03 0.5 MG Oxycodone/ Acetaminophen 1 tab Q4HP PRN PO 09/27/24 13:45 09/28/24 07:48 1 TAB Meropenem 50 ml @ 17 mls/hr Q8H IV 09/28/24 01:00 09/28/24 08:42 17 MLS/HR Losartan Potassium 100 mg DAILY PO 09/29/24 10:00 Laboratory Results Laboratory Tests 09/28/24 05:01 Chemistry Test 09/28/24 05:01 Albumin 3.9 g/dL (3.2-4.8) Calcium Level 8.8 mg/dL (8.7-10.4) Total Protein 6.1 g/dL (5.7-8.2) LFT Test 09/28/24 05:01 Alanine Aminotransferase (ALT) 15 U/L (7-40) Alkaline Phosphatase 87 U/L (46-116) Aspartate Amino Transferase (AST) 10 U/L (13-40) L Total Bilirubin 0.3 mg/dL (0.2-1.0) Urinalysis Test 09/25/24 16:30 Urine Color Colorless (Yellow) Urine Clarity Clear (Clear) Urine pH 5.0 (5.0-9.0) Urine Specific [place] 1.009 (1.001-1.035) Urine Protein Negative (Negative) Urine Ketones Negative (Negative) Urine Blood Negative /uL (Negative) Urine Nitrite Negative (Negative) Urine Bilirubin Negative (Negative) Urine Urobilinogen Normal mg/dL (Negative) Urine Leukocyte Esterase Negative /uL (Negative) Urine RBC 1 /hpf (0 - 4) Urine Microscopic WBC 1 /HPF (0-5) Urine Squamous Epithelial Cells Few /hpf (<5) Urine Triple Phosphate Crystals Few /hpf (None Seen) Urine Bacteria None seen /hpf (None Seen) Urine Mucus Few (None Seen) Urine Glucose Normal mg/dL (Normal) Microbiology Microbiology Date/Time Source Procedure Growth Status 09/25/24 16:30 Voided Urine Urine Culture - Final Complete 09/25/24 10:40 Blood Blood Culture - Preliminary NO GROWTH AFTER 72 HOURS OF INCUBATION. Resulted 09/25/24 10:28 Stool Clostridium difficile Toxin Assay - Final Complete Assessment/Plan Assessment/Plan UTI, reportedly with E coli ESBL on ertapenem at home Abdominal pain Diarrhea Rule out C diff colitis Hypertension Hypokalemia Plan Continue IV antibiotics with Zosyn Check the stools for C diff Check the urine culture Resume the home medications gabapentin Replace potassium 09/27/24: C Diff colitis: IV Flagyl & PO Vanco Rectal prolapse: Outpatient f/u Abd pain: Percocet & Dilaudid prn Anxiety: Increase Xanax UTI: Meropenem, urine culture: p Hypokalemia: Better, replace po Diarrhea: Change diet to full liquids HTN: stable 09/28/2024: C diff colitis: UTI: Continue the current management with IV antibiotics for the UTI and p.o. vancomycin for the C diff Advance diet to cardiac diet Hypertension: Restart her home medication losartan 100 mg daily Anxiety : Xanax p.r.n. Hypokalemia: Stable Plan discussed with: Patient My Orders Orders - STEVAN VERAS MD Procedure Category Date Status Time Alprazolam Tablet PHA 09/27/24 In Process (Xanax Tablet) 13:30 Oxycodone W/ Acet PHA 09/27/24 In Process 5/325mg Tab (Percocet 13:45 Meropenem 1gm Ivpb PHA 09/28/24 In Process (Merrem 1gm/ Ns) 01:00 Losartan Tablet PHA 09/29/24 In Process (Cozaar Tablet) 10:00 Cardiac DIET 09/28/24 Transmitted Diet-2gna,Lofat,Lochol Lunch Date of Service: Sep 28, 2024 Billing Provider: STEVAN VERAS MD Common Visit Codes: NOT BILLABLE STEVAN VERAS MD Sep 28, 2024 12:15
[2024-09-28] MEDS: LOSARTAN POTASSIUM 50 MG TAB PO ONE (13:48)
[2024-09-28] MEDS: DESITIN (ZINC OXIDE 40%) OINT 28G TUBE TOP SCH (17:51)
[2024-09-29] VITALS (8 sets, daily range): BP systolic 107–136; BP diastolic 54–90; PULSE 52–80; RESP 16–18; TEMP 97.4–97.9; O2SAT 94–100
[2024-09-29 05:41] LABS: Basophils # (auto) 0.1 10 ^3/uL (0-0.2); Basophils % (auto) 1.7 % (0.0-2.0); Eosinophils # (auto) 0.2 10 ^3/uL (0-0.8); Eosinophils % (auto) 3.9 % (0.0-7.0); Hematocrit 41.3 % (36.0-46.0); Hemoglobin 13.9 g/dL (12.2-16.2); Lymphocytes # (auto) 2.6 10 ^3/uL (0.4-5.4); Lymphocytes % (auto) 47.1 % (10.0-50.0); Mean Corpuscular Hemoglobin 30.8 pg (28.0-32.0); Mean Corpuscular Hgb Conc. 33.7 g/dL (32.0-36.0); Mean Corpuscular Volume 91.6 fL (80.0-100.0); Monocytes # (auto) 0.4 10 ^3/uL (0-1.3); Neutrophils # (auto) 2.2 10 ^3/uL (1.6-8.6); Neutrophils % (auto) 40.3 % (37.0-80.0); Nucleated Red Blood Cells % 0.2 %; Platelet Count (auto) 275 10^3/uL (140-450); Red Blood Cells 4.51 10^6/uL (4.0-5.20); White Blood Cell 5.5 10^3/uL (4.4-10.8)
[2024-09-29 06:03] LABS: Alanine Aminotransferase 18 U/L (7-40); Albumin 4.1 g/dL (3.2-4.8); Alkaline Phosphatase 85 U/L (46-116); Anion Gap 4 (5-15); Aspartate Aminotransferase 13 U/L (13-40); BUN/Creatinine Ratio 15.8 (10.0-20.0); Calcium 9.4 mg/dL (8.7-10.4); Carbon Dioxide 29 mmol/L (20-31); Glucose 84 mg/dL (74-106); Potassium 4.4 mmol/L (3.5-5.1); Sodium 143 mmol/L (136-145); Total Protein 6.4 g/dL (5.7-8.2)
[2024-09-29 06:04] LABS: Bilirubin, Total 0.3 mg/dL (0.2-1.0)
[2024-09-29 06:16] LABS: Blood Urea Nitrogen 9 mg/dL (9-23); Chloride 110 mmol/L (98-107)
[2024-09-29] MEDS: MEROPENEM 1GM IVPB 50 ML IV SCH (06:19)
[2024-09-29] MEDS: LOSARTAN POTASSIUM 50 MG TAB PO SCH (10:00)
--- NOTE | 2024-09-29 11:41 | DVHPN2 ---
Subjective Still has diarrhea and abdominal pain Changes from previous H/P or p: Changes Objective Vitals Vital Signs Date Time Temp Pulse Resp B/P (MAP) Pulse Ox O2 Delivery O2 Flow Rate FiO2 09/29/24 10:03 79 18 136/90 09/29/24 09:03 97.7 96 97.7 09/29/24 08:00 Room Air* 0 21 Intake/Output Intake and Output 09/29/24 07:00 Intake Total 2404 ml Output Total 4 ml Balance 2400 ml Intake Oral 1920 ml IV Total 484 ml Stool Total 4 ml # Voids 4 General Appearance: Alert, Oriented X3, Cooperative Lungs: Clear to auscultation, Normal air movement Cardiovascular: Regular rate, Normal S1, Normal S2 Abdomen: Normal bowel sounds, Soft, Other (Mild generalized tenderness in the lower abdomen with no rebound tenderness) Extremities: No edema Medications Current Medications Medications Dose Ordered Sig/Pedro Route Start Time Stop Time Status Last Admin Dose Admin Sodium Chloride 10 ml Q8HR IV 09/25/24 22:00 09/29/24 05:08 10 ML Acetaminophen 650 mg Q6HP PRN PO 09/25/24 14:45 Hydromorphone HCl 0.5 mg Q4HP PRN IV 09/25/24 14:45 09/29/24 10:03 0.5 MG Ondansetron HCl 4 mg Q4HP PRN IV 09/25/24 14:45 09/26/24 12:42 4 MG Dicyclomine HCl 10 mg TID PO 09/25/24 22:00 09/29/24 05:17 10 MG Tamsulosin HCl 0.4 mg DAILY PO 09/26/24 10:00 09/29/24 10:00 0.4 MG Duloxetine HCl 60 mg DAILY PO 09/26/24 10:00 09/29/24 10:00 60 MG Famotidine 40 mg DAILY PO 09/26/24 10:00 09/29/24 10:01 40 MG Patient Own Medication 4 mg TID PO 09/25/24 22:00 Hydralazine HCl 10 mg Q6H PRN IV 09/25/24 15:00 Gabapentin 600 mg TID PO 09/26/24 14:00 09/29/24 05:02 600 MG Metronidazole 100 ml @ 100 mls/hr Q8HR IV 09/26/24 22:00 09/29/24 05:02 100 MLS/HR Vancomycin HCl 250 mg QID PO 09/26/24 18:00 09/29/24 05:02 250 MG Alprazolam 0.5 mg Q8H PRN PO 09/27/24 13:30 09/28/24 22:45 0.5 MG Oxycodone/ Acetaminophen 1 tab Q4HP PRN PO 09/27/24 13:45 09/29/24 02:53 1 TAB Losartan Potassium 100 mg DAILY PO 09/29/24 10:00 09/29/24 10:00 100 MG Zinc Oxide 1 applic Q6HR TOP 09/28/24 18:00 09/29/24 05:03 1 APPLIC Meropenem 50 ml @ 17 mls/hr Q8H IV 09/29/24 06:30 09/29/24 06:19 17 MLS/HR Laboratory Results Laboratory Tests 09/29/24 04:55 Chemistry Test 09/29/24 04:55 Albumin 4.1 g/dL (3.2-4.8) Calcium Level 9.4 mg/dL (8.7-10.4) Total Protein 6.4 g/dL (5.7-8.2) LFT Test 09/29/24 04:55 Alanine Aminotransferase (ALT) 18 U/L (7-40) Alkaline Phosphatase 85 U/L (46-116) Aspartate Amino Transferase (AST) 13 U/L (13-40) Total Bilirubin 0.3 mg/dL (0.2-1.0) Urinalysis Test 09/25/24 16:30 Urine Color Colorless (Yellow) Urine Clarity Clear (Clear) Urine pH 5.0 (5.0-9.0) Urine Specific [place] 1.009 (1.001-1.035) Urine Protein Negative (Negative) Urine Ketones Negative (Negative) Urine Blood Negative /uL (Negative) Urine Nitrite Negative (Negative) Urine Bilirubin Negative (Negative) Urine Urobilinogen Normal mg/dL (Negative) Urine Leukocyte Esterase Negative /uL (Negative) Urine RBC 1 /hpf (0 - 4) Urine Microscopic WBC 1 /HPF (0-5) Urine Squamous Epithelial Cells Few /hpf (<5) Urine Triple Phosphate Crystals Few /hpf (None Seen) Urine Bacteria None seen /hpf (None Seen) Urine Mucus Few (None Seen) Urine Glucose Normal mg/dL (Normal) Microbiology Microbiology Date/Time Source Procedure Growth Status 09/25/24 16:30 Voided Urine Urine Culture - Final Complete 09/25/24 10:40 Blood Blood Culture - Preliminary NO GROWTH AFTER 72 HOURS OF INCUBATION. Resulted 09/25/24 10:28 Stool Clostridium difficile Toxin Assay - Final Complete Assessment/Plan Assessment/Plan UTI, reportedly with E coli ESBL on ertapenem at home Abdominal pain Diarrhea Rule out C diff colitis Hypertension Hypokalemia Plan Continue IV antibiotics with Zosyn Check the stools for C diff Check the urine culture Resume the home medications gabapentin Replace potassium 09/27/24: C Diff colitis: IV Flagyl & PO Vanco Rectal prolapse: Outpatient f/u Abd pain: Percocet & Dilaudid prn Anxiety: Increase Xanax UTI: Meropenem, urine culture: p Hypokalemia: Better, replace po Diarrhea: Change diet to full liquids HTN: stable 09/28/2024: C diff colitis: UTI: Continue the current management with IV antibiotics for the UTI and p.o. vancomycin for the C diff Advance diet to cardiac diet Hypertension: Restart her home medication losartan 100 mg daily Anxiety : Xanax p.r.n. Hypokalemia: Stable 09/29/2024: Add Florastor Continue p.o. vancomycin Continue IV antibiotics since she is here Discharge planning for tomorrow Plan discussed with: Patient My Orders Orders - STEVAN VERAS MD Procedure Category Date Status Time Losartan Tablet PHA 09/29/24 In Process (Cozaar Tablet) 10:00 Cardiac DIET 09/28/24 Transmitted Diet-2gna,Lofat,Lochol Lunch Zinc Oxide 40% PHA 09/28/24 In Process (Topical) (Desitin) 18:00 Meropenem 1gm Ivpb PHA 09/29/24 In Process (Merrem 1gm/ Ns) 06:30 Date of Service: Sep 29, 2024 Billing Provider: STEVAN VERAS MD Common Visit Codes: NOT BILLABLE STEVAN VERAS MD Sep 29, 2024 11:41
[2024-09-29] MEDS: FLORASTOR (S. BOULARDII) 250 MG CAP PO ONE (14:23)
[2024-09-30] VITALS (8 sets, daily range): BP systolic 107–138; BP diastolic 65–81; PULSE 51–57; RESP 15–20; TEMP 97.3–98; O2SAT 97–99
[2024-09-30 07:11] LABS: Basophils # (auto) 0.1 10 ^3/uL (0-0.2); Eosinophils # (auto) 0.3 10 ^3/uL (0-0.8); Eosinophils % (auto) 3.9 % (0.0-7.0); Hematocrit 38.6 % (36.0-46.0); Hemoglobin 13.1 g/dL (12.2-16.2); Lymphocytes # (auto) 2.9 10 ^3/uL (0.4-5.4); Mean Corpuscular Hemoglobin 31.4 pg (28.0-32.0); Mean Corpuscular Hgb Conc. 33.9 g/dL (32.0-36.0); Mean Corpuscular Volume 92.7 fL (80.0-100.0); Monocytes # (auto) 0.4 10 ^3/uL (0-1.3); Monocytes % (auto) 6.7 % (0.0-12.0); Neutrophils # (auto) 2.9 10 ^3/uL (1.6-8.6); Neutrophils % (auto) 44.4 % (37.0-80.0); Nucleated Red Blood Cells % 0.1 %; Platelet Count (auto) 277 10^3/uL (140-450); Red Blood Cells 4.16 10^6/uL (4.0-5.20); Red Cell Distribution Width 14.1 % (11.8-14.3); White Blood Cell 6.6 10^3/uL (4.4-10.8)
[2024-09-30 07:27] LABS: Alanine Aminotransferase 26 U/L (7-40); Albumin 3.8 g/dL (3.2-4.8); Alkaline Phosphatase 84 U/L (46-116); Anion Gap 3 (5-15); Aspartate Aminotransferase 14 U/L (13-40); Blood Urea Nitrogen 11 mg/dL (9-23); Calcium 8.9 mg/dL (8.7-10.4); Carbon Dioxide 30 mmol/L (20-31); Glucose 85 mg/dL (74-106); Potassium 4.5 mmol/L (3.5-5.1); Sodium 141 mmol/L (136-145)
[2024-09-30 07:29] LABS: Bilirubin, Total 0.3 mg/dL (0.2-1.0); Chloride 108 mmol/L (98-107)
[2024-09-30] MEDS: FLORASTOR (S. BOULARDII) 250 MG CAP PO SCH (10:06)
--- NOTE | 2024-09-30 12:41 | DVHPN2 ---
Subjective c/o right lower back pain still has diarrhea Changes from previous H/P or p: Changes Objective Vitals Vital Signs Date Time Temp Pulse Resp B/P (MAP) Pulse Ox O2 Delivery O2 Flow Rate FiO2 09/30/24 11:37 56 19 126/81 09/30/24 09:00 97.6 99 97.6 09/30/24 08:05 Room Air* 0 21 Intake/Output Intake and Output 09/30/24 07:00 Intake Total 2080 ml Balance 2080 ml Intake Oral 1780 ml IV Total 300 ml # Voids 9 # Bowel Movements 6 General Appearance: Alert, Oriented X3, Cooperative Lungs: Clear to auscultation, Normal air movement Cardiovascular: Regular rate, Normal S1, Normal S2 Abdomen: Normal bowel sounds, Soft, Other (Mild generalized tenderness in the lower abdomen with no rebound tenderness) Extremities: No edema Medications Current Medications Medications Dose Ordered Sig/Pedro Route Start Time Stop Time Status Last Admin Dose Admin Sodium Chloride 10 ml Q8HR IV 09/25/24 22:00 09/30/24 06:15 10 ML Acetaminophen 650 mg Q6HP PRN PO 09/25/24 14:45 Hydromorphone HCl 0.5 mg Q4HP PRN IV 09/25/24 14:45 09/30/24 11:37 0.5 MG Ondansetron HCl 4 mg Q4HP PRN IV 09/25/24 14:45 09/26/24 12:42 4 MG Dicyclomine HCl 10 mg TID PO 09/25/24 22:00 09/30/24 06:11 10 MG Tamsulosin HCl 0.4 mg DAILY PO 09/26/24 10:00 09/30/24 10:07 0.4 MG Duloxetine HCl 60 mg DAILY PO 09/26/24 10:00 09/30/24 10:07 60 MG Famotidine 40 mg DAILY PO 09/26/24 10:00 09/30/24 10:08 40 MG Patient Own Medication 4 mg TID PO 09/25/24 22:00 Hydralazine HCl 10 mg Q6H PRN IV 09/25/24 15:00 Gabapentin 600 mg TID PO 09/26/24 14:00 09/30/24 06:11 600 MG Metronidazole 100 ml @ 100 mls/hr Q8HR IV 3/16/25 22:00 09/30/24 06:07 100 MLS/HR Vancomycin HCl 250 mg QID PO 09/26/24 18:00 09/30/24 11:36 250 MG Alprazolam 0.5 mg Q8H PRN PO 09/27/24 13:30 09/29/24 17:28 0.5 MG Oxycodone/ Acetaminophen 1 tab Q4HP PRN PO 09/27/24 13:45 09/30/24 01:25 1 TAB Losartan Potassium 100 mg DAILY PO 09/29/24 10:00 09/29/24 10:00 100 MG Zinc Oxide 1 applic Q6HR TOP 09/28/24 18:00 09/29/24 18:34 1 APPLIC Meropenem 50 ml @ 17 mls/hr Q8H IV 09/29/24 06:30 09/30/24 07:23 17 MLS/HR Saccharomyces Boulardii 250 mg DAILY PO 09/30/24 10:00 09/30/24 10:06 250 MG Laboratory Results Laboratory Tests 09/30/24 06:48 Chemistry Test 09/30/24 06:48 Albumin 3.8 g/dL (3.2-4.8) Calcium Level 8.9 mg/dL (8.7-10.4) Magnesium Level 2.0 mg/dL (1.6-2.6) Total Protein 6.0 g/dL (5.7-8.2) LFT Test 09/30/24 06:48 Alanine Aminotransferase (ALT) 26 U/L (7-40) Alkaline Phosphatase 84 U/L (46-116) Aspartate Amino Transferase (AST) 14 U/L (13-40) Total Bilirubin 0.3 mg/dL (0.2-1.0) Urinalysis Test 09/25/24 16:30 Urine Color Colorless (Yellow) Urine Clarity Clear (Clear) Urine pH 5.0 (5.0-9.0) Urine Specific [place] 1.009 (1.001-1.035) Urine Protein Negative (Negative) Urine Ketones Negative (Negative) Urine Blood Negative /uL (Negative) Urine Nitrite Negative (Negative) Urine Bilirubin Negative (Negative) Urine Urobilinogen Normal mg/dL (Negative) Urine Leukocyte Esterase Negative /uL (Negative) Urine RBC 1 /hpf (0 - 4) Urine Microscopic WBC 1 /HPF (0-5) Urine Squamous Epithelial Cells Few /hpf (<5) Urine Triple Phosphate Crystals Few /hpf (None Seen) Urine Bacteria None seen /hpf (None Seen) Urine Mucus Few (None Seen) Urine Glucose Normal mg/dL (Normal) Microbiology Microbiology Date/Time Source Procedure Growth Status 09/25/24 16:30 Voided Urine Urine Culture - Final Complete 09/25/24 10:40 Blood Blood Culture - Final NO GROWTH AFTER 5 DAYS OF INCUBATION. Complete 09/25/24 10:28 Stool Clostridium difficile Toxin Assay - Final Complete Assessment/Plan Assessment/Plan UTI, reportedly with E coli ESBL on ertapenem at home Abdominal pain Diarrhea Rule out C diff colitis Hypertension Hypokalemia Plan Continue IV antibiotics with Zosyn Check the stools for C diff Check the urine culture Resume the home medications gabapentin Replace potassium 09/27/24: C Diff colitis: IV Flagyl & PO Vanco Rectal prolapse: Outpatient f/u Abd pain: Percocet & Dilaudid prn Anxiety: Increase Xanax UTI: Meropenem, urine culture: p Hypokalemia: Better, replace po Diarrhea: Change diet to full liquids HTN: stable 09/28/2024: C diff colitis: UTI: Continue the current management with IV antibiotics for the UTI and p.o. vancomycin for the C diff Advance diet to cardiac diet Hypertension: Restart her home medication losartan 100 mg daily Anxiety : Xanax p.r.n. Hypokalemia: Stable 09/29/2024: Add Florastor Continue p.o. vancomycin Continue IV antibiotics since she is here Discharge planning for tomorrow 09/30/24: Lower back pain: Aspercream prn, warm compresses prn Repeat UA Diarrhea: Florastor C. Diff: PO Vanco Rectal prolapse: Outpatient f/u Continue PO Vanco DC Meropenem and Flagyl Plan discussed with: Patient Date of Service: Sep 30, 2024 Billing Provider: STEVAN VERAS MD Common Visit Codes: NOT BILLABLE STEVAN VERAS MD Sep 30, 2024 12:41
[2024-09-30] MEDS ORDERED: TROLAMINE SALICYLATE 10% TOP CREAM TOP PRN (12:45)
[2024-09-30] MEDS: OXYCODONE W/ ACETAMINOPHEN 5/325MG TABLET PO PRN (14:38)
[2024-09-30 15:34] LABS: Urine Bacteria None Seen /hpf (None Seen)
[2024-09-30 15:56] LABS: Urine Blood Negative /uL (Negative); Urine Clarity Clear (Clear); Urine Color Colorless (Yellow); Urine Protein, UAD Negative (Negative); Urine Specific Gravity 1.005 (1.001-1.035); Urine Squamous Epithelial Cell FEW /hpf (<5); Urine Urobilinogen Normal (Negative); Urine WBC < 1 /HPF (0-5); Urine pH 5.5 (5.0-9.0)
[2024-10-01] VITALS (8 sets, daily range): BP systolic 106–134; BP diastolic 67–78; PULSE 48–104; RESP 16–18; TEMP 97.3–98.2; O2SAT 95–98
--- NOTE | 2024-10-01 11:24 | DVHPN2 ---
Subjective Still complains of diarrhea Changes from previous H/P or p: Changes Objective Vitals Vital Signs Date Time Temp Pulse Resp B/P (MAP) Pulse Ox O2 Delivery O2 Flow Rate FiO2 10/01/24 10:48 49 16 143/93 10/01/24 08:53 98.0 96 98.0 10/01/24 08:00 Room Air* 0 21 Intake/Output Intake and Output 10/01/24 07:00 Intake Total 2950 ml Balance 2950 ml Intake Oral 2800 ml IV Total 150 ml # Voids 9 # Bowel Movements 9 General Appearance: Alert, Oriented X3, Cooperative Lungs: Clear to auscultation, Normal air movement Cardiovascular: Regular rate, Normal S1, Normal S2 Abdomen: Normal bowel sounds, Soft, Other (Mild generalized tenderness in the lower abdomen with no rebound tenderness) Extremities: No edema Medications Current Medications Medications Dose Ordered Sig/Pedro Route Start Time Stop Time Status Last Admin Dose Admin Sodium Chloride 10 ml Q8HR IV 09/25/24 22:00 10/01/24 05:43 10 ML Acetaminophen 650 mg Q6HP PRN PO 09/25/24 14:45 Hydromorphone HCl 0.5 mg Q4HP PRN IV 09/25/24 14:45 10/01/24 10:18 0.5 MG Ondansetron HCl 4 mg Q4HP PRN IV 09/25/24 14:45 09/26/24 12:42 4 MG Dicyclomine HCl 10 mg TID PO 09/25/24 22:00 10/01/24 05:43 10 MG Tamsulosin HCl 0.4 mg DAILY PO 09/26/24 10:00 10/01/24 09:33 0.4 MG Duloxetine HCl 60 mg DAILY PO 09/26/24 10:00 10/01/24 09:34 60 MG Famotidine 40 mg DAILY PO 09/26/24 10:00 10/01/24 09:34 40 MG Patient Own Medication 4 mg TID PO 09/25/24 22:00 Hydralazine HCl 10 mg Q6H PRN IV 09/25/24 15:00 Gabapentin 600 mg TID PO 09/26/24 14:00 10/01/24 05:44 600 MG Vancomycin HCl 250 mg QID PO 09/26/24 18:00 10/01/24 05:44 250 MG Alprazolam 0.5 mg Q8H PRN PO 09/27/24 13:30 09/30/24 23:07 0.5 MG Losartan Potassium 100 mg DAILY PO 09/29/24 10:00 10/01/24 09:33 100 MG Zinc Oxide 1 applic Q6HR TOP 09/28/24 18:00 09/29/24 18:34 1 APPLIC Saccharomyces Boulardii 250 mg DAILY PO 09/30/24 10:00 10/01/24 09:34 250 MG Trolamine Salicylate 1 applic Q6HP PRN TOP 09/30/24 12:45 Oxycodone/ Acetaminophen 2 tab Q6HP PRN PO 09/30/24 12:45 10/01/24 02:19 2 TAB Laboratory Results Laboratory Tests 09/30/24 06:48 Urinalysis Test 09/25/24 16:30 09/30/24 13:40 Urine Triple Phosphate Crystals Few /hpf (None Seen) Urine Mucus Few (None Seen) Urine Color Colorless (Yellow) Urine Clarity Clear (Clear) Urine pH 5.5 (5.0-9.0) Urine Specific [place] 1.005 (1.001-1.035) Urine Protein Negative (Negative) Urine Ketones Negative (Negative) Urine Blood Negative /uL (Negative) Urine Nitrite Negative (Negative) Urine Bilirubin Negative (Negative) Urine Urobilinogen Normal mg/dL (Negative) Urine Leukocyte Esterase Negative /uL (Negative) Urine RBC <1 /hpf (0 - 4) Urine Microscopic WBC < 1 /HPF (0-5) Urine Squamous Epithelial Cells Few /hpf (<5) Urine Bacteria None seen /hpf (None Seen) Urine Glucose Normal mg/dL (Normal) Microbiology Microbiology Date/Time Source Procedure Growth Status 09/25/24 16:30 Voided Urine Urine Culture - Final Complete 09/25/24 10:40 Blood Blood Culture - Final NO GROWTH AFTER 5 DAYS OF INCUBATION. Complete 09/25/24 10:28 Stool Clostridium difficile Toxin Assay - Final Complete Assessment/Plan Assessment/Plan UTI, reportedly with E coli ESBL on ertapenem at home Abdominal pain Diarrhea Rule out C diff colitis Hypertension Hypokalemia Plan Continue IV antibiotics with Zosyn Check the stools for C diff Check the urine culture Resume the home medications gabapentin Replace potassium 09/27/24: C Diff colitis: IV Flagyl & PO Vanco Rectal prolapse: Outpatient f/u Abd pain: Percocet & Dilaudid prn Anxiety: Increase Xanax UTI: Meropenem, urine culture: p Hypokalemia: Better, replace po Diarrhea: Change diet to full liquids HTN: stable 09/28/2024: C diff colitis: UTI: Continue the current management with IV antibiotics for the UTI and p.o. vancomycin for the C diff Advance diet to cardiac diet Hypertension: Restart her home medication losartan 100 mg daily Anxiety : Xanax p.r.n. Hypokalemia: Stable 09/29/2024: Add Florastor Continue p.o. vancomycin Continue IV antibiotics since she is here Discharge planning for tomorrow 09/30/24: Lower back pain: Aspercream prn, warm compresses prn Repeat UA Diarrhea: Florastor C. Diff: PO Vanco Rectal prolapse: Outpatient f/u Continue PO Vanco DC Meropenem and Flagyl 10/01/2024: Continue the current management with p.o. vancomycin Advance diet to regular Continue the home medications Pain management as needed Plan discussed with: Patient My Orders Orders - STEVAN VERAS MD Procedure Category Date Status Time Warm Compresses ORDERS 09/30/24 Transmitted 12:32 Trolamine Salicylate PHA 09/30/24 In Process Topical (Aspercreme 12:45 Oxycodone W/ Acet PHA 09/30/24 In Process 5/325mg Tab (Percocet 12:45 Regular Diet DIET 10/01/24 Transmitted Lunch Date of Service: Oct 01, 2024 Billing Provider: STEVAN VERAS MD Common Visit Codes: NOT BILLABLE STEVAN VERAS MD Oct 01, 2024 11:24
[2024-10-02 00:56] VITALS: BP 121/61; PULSE 45; RESP 17; TEMP 97.8; O2SAT 98
[2024-10-02 05:00] VITALS: BP 141/83; PULSE 54; RESP 18; TEMP 98; O2SAT 98
[2024-10-02 07:41] VITALS: RESP 16; O2SAT 96
[2024-10-02 08:10] VITALS: BP 138/80; PULSE 56; RESP 17; TEMP 97.9; O2SAT 98
[2024-10-02 12:15] VITALS: BP 139/79; PULSE 58; RESP 17; TEMP 98; O2SAT 99
[2024-10-02] MEDS ORDERED: CHL4PW PO (12:29)
[2024-10-02] MEDS ORDERED: VANC125C3 PO (12:29)
--- NOTE | 2024-10-02 12:35 | DVHDS2 ---
Discharge Summary Date of Admission Sep 25, 2024 at 14:45 Date of Discharge: Oct 02, 2024 Labs/Diagnostic Data: Laboratory Results Test 09/30/24 13:40 09/30/24 06:48 09/25/24 19:23 09/25/24 16:30 Urine Color Colorless (Yellow) Urine Clarity Clear (Clear) Urine pH 5.5 (5.0-9.0) Urine Specific [place] 1.005 (1.001-1.035) Urine Protein Negative (Negative) Urine Ketones Negative (Negative) Urine Blood Negative /uL (Negative) Urine Nitrite Negative (Negative) Urine Bilirubin Negative (Negative) Urine Urobilinogen Normal mg/dL (Negative) Urine Leukocyte Esterase Negative /uL (Negative) Urine RBC <1 /hpf (0 - 4) Urine Microscopic WBC < 1 /HPF (0-5) Urine Squamous Epithelial Cells Few /hpf (<5) Urine Bacteria None seen /hpf (None Seen) Urine Glucose Normal mg/dL (Normal) White Blood Count 6.6 10^3/uL (4.4-10.8) Red Blood Count 4.16 10^6/uL (4.0-5.20) Hemoglobin 13.1 g/dL (12.2-16.2) Hematocrit 38.6 % (36.0-46.0) Mean Corpuscular Volume 92.7 fL (80.0-100.0) Mean Corpuscular Hemoglobin 31.4 pg (28.0-32.0) Mean Corpuscular Hemoglobin Concent 33.9 g/dL (32.0-36.0) Red Cell Distribution Width 14.1 % (11.8-14.3) Platelet Count 277 10^3/uL (140-450) Mean Platelet Volume 7.5 fL (6.9-10.8) Neutrophils (%) (Auto) 44.4 % (37.0-80.0) Lymphocytes (%) (Auto) 44.0 % (10.0-50.0) Monocytes (%) (Auto) 6.7 % (0.0-12.0) Eosinophils (%) (Auto) 3.9 % (0.0-7.0) Basophils (%) (Auto) 1.0 % (0.0-2.0) Neutrophils # (Auto) 2.9 10 ^3/uL (1.6-8.6) Lymphocytes # (Auto) 2.9 10 ^3/uL (0.4-5.4) Monocytes # (Auto) 0.4 10 ^3/uL (0-1.3) Eosinophils # (Auto) 0.3 10 ^3/uL (0-0.8) Basophils # (Auto) 0.1 10 ^3/uL (0-0.2) Nucleated Red Blood Cells 0.1 % Sodium Level 141 mmol/L (136-145) Potassium Level 4.5 mmol/L (3.5-5.1) Chloride Level 108 mmol/L (98-107) Carbon Dioxide Level 30 mmol/L (20-31) Anion Gap 3 (5-15) Blood Urea Nitrogen 11 mg/dL (9-23) Creatinine 0.61 mg/dL (0.550-1.02) Glomerular Filtration Rate Calc 109 mL/min (>90) BUN/Creatinine Ratio 18.0 (10.0-20.0) Serum Glucose 85 mg/dL (74-106) Calcium Level 8.9 mg/dL (8.7-10.4) Magnesium Level 2.0 mg/dL (1.6-2.6) Total Bilirubin 0.3 mg/dL (0.2-1.0) Aspartate Amino Transferase (AST) 14 U/L (13-40) Alanine Aminotransferase (ALT) 26 U/L (7-40) Alkaline Phosphatase 84 U/L (46-116) Total Protein 6.0 g/dL (5.7-8.2) Albumin 3.8 g/dL (3.2-4.8) Hepatitis B Surface Antigen Negative (Negative) Urine Triple Phosphate Crystals Few /hpf (None Seen) Urine Mucus Few (None Seen) Test 09/25/24 10:47 Lactic Acid Level 1.1 mmol/L (0.4-2.0) C-Reactive Protein High Sensitivity 0.23 mg/dL (<1.0) Beta HCG, Quantitative 1.4 mIU/mL (1.5-4.2) Other Laboratory Tests 09/30/24 06:48 Brief Hx & Hospital Course: Discharge diagnoses: C diff colitis UTI, reportedly with E coli ESBL on ertapenem at home\\, resolved here Abdominal pain due to the above Diarrhea due to C diff Hypertension Hypokalemia 49-year-old female who was admitted for diarrhea and UTI and abdominal pain She had UTI at home was treated with IV antibiotics and therefore she was continued on meropenem IV here since she said she had E coli with ESBL however with a day urine culture and he was negative Because of the diarrhea we tested her for C diff and he was positive She was treated with p.o. vancomycin Her diarrhea improved slowly and she became more comfortable Right now she is still says she has some diarrhea not as bad as when she came Her vital signs are stable Her labs are stable She is afebrile She will be discharged home and to continue vancomycin p.o. for 2 weeks Since she is still having diarrhea she will be also given Questran She was also complaining of a rectal prolapse and she was seen by surgery and was recommended to follow up as an outpatient since it is not an emergency She can be discharged now and vancomycin and Questran and resume the home medications She has already been referred to I for her rectal prolapse which she will follow up with Condition at Discharge: Stable Final Diagnosis/Problems List C diff colitis UTI, reportedly with E coli ESBL on ertapenem at home\\, resolved here Abdominal pain due to the above Diarrhea due to C diff Hypertension Hypokalemia Discharge Disposition: Home SNF Discharge Will this Physician continue t: No Discharge Instruct/Medications Diet: Cardiac 2g Na,low cholest Activity: No Restrictions, As Tolerated Follow Up/Referral: PCP as soon as possible Medications: Vancomycin 125 mg 4 times a day for 2 weeks Questran 4 g twice a day p.r.n. Resume the home medications Discharge Statement: "Patient was advised to return to the ER or call 911 if any headaches, dizziness, shortness of breath, chest pain, abdominal pain, bleeding, fevers, or worsening of medical condition. Patient was counseled about treatment plan, medications, possible side effects, patientverbalized understanding. All questions were answered to the best of my ability. This discharge took greater then 30 minutes in planning, reviewing documentation, counseling the patient, and discussing with other team members." ASSESSMENT ASSESSMENT Assessment C diff colitis UTI, reportedly with E coli ESBL on ertapenem at home\\, resolved here Abdominal pain due to the above Diarrhea due to C diff Hypertension Hypokalemia Date of Service: Oct 02, 2024 Billing Provider: STEVAN VERAS MD Common Visit Codes: NOT BILLABLE STEVAN VERAS MD Oct 02, 2024 12:35
[2024-10-02 12:51] VITALS: BP 138/80; TEMP 36.6
== END 2024-10-02 13:10 | disposition home or self-care (01) | DRG 372 ==
LOC: ER 09:52 → OVERFLOW 14:45 → EAST 18:29 → CENTRAL 09-26 17:23
PROVIDERS: ADMIT Internal Medicine Geriatric Medicine; ATTEND Internal Medicine Geriatric Medicine
PROC: 05HF33Z Insertion of Infusion Device into Left Cephalic Vein, Percutaneous Approach (ICD-10-PCS; principal; 2024-09-25)
PROC: B54NZZA Ultrasonography of Left Upper Extremity Veins, Guidance (ICD-10-PCS; 2024-09-25)
PROC: 0XP Anatomical Regions, Upper Extremities, Removal (ICD-10-PCS; 2024-09-25)
DX: A04.72 Enterocolitis due to Clostridium difficile, not specified as recurrent (principal); N39.0 Urinary tract infection, site not specified; F17.210 Nicotine dependence, cigarettes, uncomplicated; F41.9 Anxiety disorder, unspecified; B96.20 Unspecified Escherichia coli [E. coli] as the cause of diseases classified elsewhere; E87.6 Hypokalemia; K62.3 Rectal prolapse; I10 Essential (primary) hypertension; M54.50 Low back pain, unspecified; Z79.891 Long term (current) use of opiate analgesic; Z79.899 Other long term (current) drug therapy; Z79.1 Long term (current) use of non-steroidal anti-inflammatories (NSAID); Z90.710 Acquired absence of both cervix and uterus; Z90.49 Acquired absence of other specified parts of digestive tract; Z83.3 Family history of diabetes mellitus; Z82.49 Family history of ischemic heart disease and other diseases of the circulatory system; Z79.2 Long term (current) use of antibiotics
CPT/HCPCS: 36415; 74176; 80053; 81001; 83605; 83735; 84702; 85025; 86141; 87040; 87045; 87086; 87340; 87427; 87493; 96361; 96365; 96375; G0378; J2185; J2405; J2543; J3490

== ENCOUNTER 2024-11-01 04:00 | Emergency (ER) | payer OTHER, MEDICAID ==
[~2024-11-01] VITALS: Ht 124.5 cm; Wt 71.4 kg
[~2024-11-01 04:00] MED LIST changes: -ALPR0.25 PO; -ALPR1TAB2 PO; -AUG875T PO; +CHL4PW PO; -DEXT1SYP9 PO; -GUAI100S6 PO; +HYDR-4798 PO; -HYDR-4902 PO; +HYDR25TA5 PO; -IBAN1TAB2 PO; -LISI40TA16 PO; -LOPE2CAP16 PO; -LOS25T PO; +LOSA-535 PO; -MICO1KIT10 VA; -NAP500T PO; -OXY10CRT PO; -POLY335015 PO; -PRED20TA2 PO; -TAMS-35 PO; -TRAM-626 PO; +VANC125C3 PO; -ZOFR4T PO
--- NOTE | 2024-11-01 04:05 | ED.PDOC ---
GI ASSESSMENT HPI Comments PATIENT COMES WITH C/C OF CENTRAL ABDOMINAL PAIN THAT RADIATES TO BACK 10/10 PAIN, WITH BLOATING, HEARTBURN SINCE YESTERDAY. PATIENT REPORTS SHE HAS AN EXTENSIVE GI HISTORY WITH REOCCURING HERNIAS AND MOBILITY ISSUES. PATIENT REPORTS HAS A SCHEDULED APPOINTMENT REGARDING THESE ISSUES WITH GI ON FRIDAY OF NEXT WEEK. DENIES NAUSEA, VOMITING, CHEST PAIN, SHORTNESS OF BREATH, DIARRHEA, DIFFICULTY BREATHING Time Seen by MD: 04:03 Primary Care Provider: VAZQUEZ Reviewed Notes: Nurses Notes, Medications, Allergies Allergies: Coded Allergies: NO KNOWN ALLERGIES (Unverified , 05/10/14) Home Meds Active Scripts Mineral Oil, Extra Heavy (Enema Mineral Oil) Shayla, 1 BOT TN ONCE PRN for 1 Day, #1 BOT Prov:ROMA STUBBS FRAMING MECHANIC 11/01/24 Cholestyramine (QUESTRAN POWDER) 4 Gm Pw, 4 GM PO BID for 14 Days, #28 POW Prov:STEVAN VERAS MD 10/02/24 Vancomycin HCl (Vancomycin HCl) 125 Mg Cap, 125 MG PO Q6HR PRN for 14 Days, #56 CAP Prov:STEVAN VERAS MD 10/02/24 Hydrocortone (Hydrocortisone 2.5%) 1 Applic Ap, 1 APPLIC TN QHSP PRN, #10 APPLIC Prov:STEVAN VERAS MD 01/31/24 Dicyclomine Hcl (BENTYL CAPSULE) 10 Mg Cp, 1 CAP PO TID, #90 CAP 11 Refills Prov:NICHO COELLO FRAMING MECHANIC 01/05/24 Docusate Sodium (Colace) 100 Mg Cap, 1 CAP PO BID, #60 CAP Prov:STEVAN VERAS MD 10/28/23 Pantoprazole Sodium Sesquihydr (Protonix) 40 Mg Tab, 40 MG PO DAILY for 7 Days, #7 TAB Prov:CHANTAL STEWART MD 10/14/23 Reported Medications Hydrocodone-Acetaminophen (Hydrocodone Bitartrate/AC 10-325 mg) 1 Tab Tab, 1 TAB PO QID PRN for PAIN SCALE 7 THRU 10, TAB 09/25/24 Hctz (Hydrochlorothiazide) 25 Mg Tab, 25 MG PO DAILY, TAB 09/25/24 Losartan Potassium (Losartan Potassium) 100 Mg Tab, 100 MG PO DAILY for 30 Days, MG 09/25/24 Alprazolam (Alprazolam) 0.25 Mg Tab, 1 TAB PO BIDPRN PRN 08/07/24 Famotidine (Famotidine) 40 Mg Tab, 1 TAB PO QHSP PRN 08/07/24 Tamsulosin Hcl (Tamsulosin Hcl) 0.4 Mg Cap, 1 CAP PO DAILY 08/07/24 Duloxetine Hcl (Cymbalta) 60 Mg Cap, 1 CAP PO DAILY, #90 CAP 3 Refills 01/30/24 Sennosides-Docusate Sodium (Senokot S) 1 Tab Tab, 1 TAB PO BID, #30 TAB 10/14/23 Tizanidine Hydrochloride (Tizanidine Hcl) 4 Mg Tab, 4 MG PO TID, TAB 10/14/23 Gabapentin (Gabapentin) 600 Mg Tab, 1 TAB PO TID, #90 TAB 3 Refills 10/14/23 Information Source: Patient Past Medical History PAST MEDICAL HISTORY: HTN Surgical History: Cholecystectomy, Hernia Repair, Hysterectomy, Tubal Ligation [employer] HOST/HOSTESS History: Other Family History Family History: Reviewed,noncontributory to illness Social History Smoker: Cigarettes Alcohol: Denies ETOH Use Drugs: Denies Drug Use Lives In: Home Constitutional: denies: chills, diaphoresis, fatigue, fever, malaise, sweats, weakness, others EENTM: denies: blurred vision, double vision, ear bleeding, ear discharge, ear drainage, ear pain, ear ringing, eye pain, eye redness, hearing loss, mouth pain, mouth swelling, nasal discharge, nose bleeding, nose congestion, nose pain, photophobia, tearing, throat pain, throat swelling, voice changes, others Respiratory: denies: cough, hemoptysis, orthopnea, SOB at rest, shortness of breath, SOB with excertion, stridor, wheezing, others Cardiovascular: denies: chest pain, dizzy spells, diaphoresis, Dyspnea on exertion, edema, irregular heart beat, left arm pain, lightheadedness, palpitations, PND, syncope, others Gastrointestinal: reports: abdomen distended, abdominal pain, constipated; denies: blood streaked bowels, diarrhea, dysphagia, difficulty swallowing, hematemesis, melena, nausea, poor appetite, poor fluid intake, rectal bleeding, rectal pain, vomiting, others Genitourinary: denies: abnormal vagina bleeding, burning, dyspareunia, dysuria, flank pain, frequency, hematuria, incontinence, pain, , vagina discharge, urgency, others Neurological: denies: dizziness, fainting, headache, left sided numbness, left sided weakness, numbness, paresthesia, pre-existing deficit, right sided numbness, right sided weakness, seizure, speech problems, tingling, tremors, weakness, others Musculoskeletal: denies: back pain, gout, joint pain, joint swelling, muscle pain, muscle stiffness, neck pain, others Integumetry: denies: bruises, change in color, change in hair/nails, dryness, laceration, lesions, lumps, rash, wounds, others Allergic/Immunocompromised: denies: Difficulty Healing, Frequent Infections, Hives, Itching, others Hematologic/Lymphatic: denies: anemia, blood clots, easy bleeding, easy bruising, swollen glands, others Endocrine: denies: excessive hunger, excessive sweating, excessive thirst, excessive urination, flushing, intolerance to cold, intolerance to heat, unexplained weight gain, unexplained weight loss, others Psychiatric: denies: anxiety, bipolar disorder, depression, hopeless, panic disorder, schizophrenia, sleepless, suicidal, others Physical Exam General Appearance: No Apparent Distress, Normal HEENT: Pharynx Normal Neck: Full Range of Motion, Non-Tender Respiratory: Lungs Clear, No Respiratory Distress, Normal Breath Sounds Cardiovascular: No Edema, No JVD, No Murmur, No Gallop, Normal Peripheral Pulses, Regular Rate/Rhythm Breast Exam: Deferred Gastrointestinal: Diffuse, Distended, No Organomegaly, No Pulsatile Mass, Normal Bowel Sounds, Soft Genitalia: Deferred Pelvic: Deferred Rectal: Deferred Extremities: Normal capillary refill, Normal inspection, Normal range of motion, Non-tender, No pedal edema Musculoskeletal : Apperance: Normal Neurologic: Alert, cooker loader II-XII nml as Tested, No Motor Deficits, Normal Affect, Normal Mood, No Sensory Deficits Cerebellar Function: Normal Reflexes: Normal Skin: Dry, Normal Color, Warm Lymphatic: No Adenopathy Was a procedure done? Was a procedure done?: No GI differential Dx Differential Diagnosis: Gastritis/PUD, Gastroenteritis, Ischemic Bowel, Bacterial, Parasitic, Viral X-Ray, Labs, Meds, VS Vital Signs Date Time Temp Pulse Resp B/P (MAP) Pulse Ox O2 Delivery O2 Flow Rate FiO2 11/01/24 04:09 Room Air 11/01/24 04:09 98.2 77 20 179/113 (135) 98 98.2 11/01/24 04:09 98.2 77 20 98.2 Lab Test 11/01/24 04:10 Range/Units White Blood Count 7.7 4.4-10.8 10^3/uL Red Blood Count 4.57 4.0-5.20 10^6/uL Hemoglobin 14.5 12.2-16.2 g/dL Hematocrit 42.6 36.0-46.0 % Mean Corpuscular Volume 93.1 80.0-100.0 fL Mean Corpuscular Hemoglobin 31.7 28.0-32.0 pg Mean Corpuscular Hemoglobin Concent 34.1 32.0-36.0 g/dL Red Cell Distribution Width 13.8 11.8-14.3 % Platelet Count 275 140-450 10^3/uL Mean Platelet Volume 7.5 6.9-10.8 fL Neutrophils (%) (Auto) 51.0 37.0-80.0 % Lymphocytes (%) (Auto) 37.5 10.0-50.0 % Monocytes (%) (Auto) 7.0 0.0-12.0 % Eosinophils (%) (Auto) 3.5 0.0-7.0 % Basophils (%) (Auto) 1.0 0.0-2.0 % Neutrophils # (Auto) 3.9 1.6-8.6 10 ^3/uL Lymphocytes # (Auto) 2.9 0.4-5.4 10 ^3/uL Monocytes # (Auto) 0.5 0-1.3 10 ^3/uL Eosinophils # (Auto) 0.3 0-0.8 10 ^3/uL Basophils # (Auto) 0.1 0-0.2 10 ^3/uL Nucleated Red Blood Cells 0.0 % Sodium Level 141 136-145 mmol/L Potassium Level 3.9 3.5-5.1 mmol/L Chloride Level 112 H 98-107 mmol/L Carbon Dioxide Level 21 20-31 mmol/L Anion Gap 8 5-15 Blood Urea Nitrogen 16 9-23 mg/dL Creatinine 0.63 0.550-1.02 mg/dL Glomerular Filtration Rate Calc 108 >90 mL/min BUN/Creatinine Ratio 25.4 H 10.0-20.0 Serum Glucose 142 H 74-106 mg/dL Calcium Level 9.1 8.7-10.4 mg/dL Total Bilirubin 0.3 0.2-1.0 mg/dL Aspartate Amino Transferase (AST) 21 13-40 U/L Alanine Aminotransferase (ALT) 21 7-40 U/L Alkaline Phosphatase 88 46-116 U/L Total Protein 6.8 5.7-8.2 g/dL Albumin 4.3 3.2-4.8 g/dL Lipase 83 H 12-53 U/L Current Medications Medications (Trade) Dose Ordered Sig/Pedro Route Start Time Stop Time Status Last Admin Al Hydrox/Mg Hydrox/Simethicone (Maalox Plus) 30 ml ONCE ONCE PO 11/01/24 04:30 11/01/24 04:31 DC 11/01/24 04:33 Lidocaine HCl (Xylocaine 2% Viscous) 5 ml ONCE ONCE MT 11/01/24 04:30 11/01/24 04:31 DC 11/01/24 04:33 Belladonna Alkaloids/ Phenobarbital ( Elixir) 5 ml ONCE ONCE PO 11/01/24 04:45 11/01/24 04:46 DC 11/01/24 04:39 X-Ray, Labs, Meds, VS Comment IMPRESSION: 1. Small esophageal hiatal hernia. 2. Fecal retention in the colon consistent with constipation. No bowel obstruction. 3. Punctate nephrolithiasis without hydronephrosis, bilaterally. PATIENT GIVEN GI COCKTAIL SHE DOES REPORT IMPROVEMENT IN SYMPTOMS WITH HER ACID REFLUX AND BURNING. ABDOMINAL PAIN AND DISTENTION LIKELY SECONDARY TO PATIENT'S CONSTIPATION WHICH IS CHRONIC IN NATURE DUE TO OPIOID USE. PATIENT STATES CHRONIC HISTORY OF CONSTIPATION CURRENTLY ON LACTULOSE WHICH SHE NOTES HAS NOT BEEN HELPING IT DID IN THE PAST. NOTES CURRENTLY TAKING FIBER GUMMIES HOWEVER HAS NOT TRIED PROBIOTICS SHE WAS ON MOVANTIK WHICH SHE STATES GOT DISCONTINUED BY HER PAIN MANAGEMENT DOCTOR. WE WILL TRIAL MINERAL OIL FLEET ENEMA SCRIPT TO PHARMACY. HAS BEEN USING MIRALAX. ADVISED HER TO FOLLOW UP WITH HER GI APPOINTMENT NEXT WEEK ON FRIDAY. HAS A CALL HER PCP GET A ER FOLLOW UP WITHIN 1-2 DAYS. ADVISED TO INCREASE P.O. FLUIDS INCREASE HER DAILY FIBER. CONSIDER FOLLOW UP WITH HER PAIN MANAGEMENT IF POSSIBLY CUTTING BACK ON HER NORCO USE. ER RETURN PRECAUTIONS GIVEN PATIENT INDICATES UNDERSTANDING AGREES WITH DISCHARGE PLAN OF CARE Time of 1ST Reevaluation: 04:05 Reevaluation 1ST: Unchanged Time of 2ND Reevaluation: 05:58 Reevaluation 2ND: Improved Patient Education/Counseling: Diagnosis, Treatment, Prognosis, Need For Follow Up Family Education/Counseling: No Family Present Departure 1 Departure Time of Disposition: 05:58 Impression: Primary Impression: Constipation Qualified Codes: K59.03 - Drug induced constipation Additional Impression: Esophageal hiatal hernia Disposition: 01 HOME / SELF CARE / HOMELESS Condition: Stable e-Prescriptions Mineral Oil, Extra Heavy (Enema Mineral Oil) Shayla 1 BOT TN ONCE PRN for 1 Day, #1 BOT Prov: ROMA STUBBS 11/01/24 Discharged With: Self Critical Care Note Critical Care Time?: No Stability Stability form required: ROMA Chou Nov 01, 2024 04:05
[2024-11-01 04:09] VITALS: BP 179/113; PULSE 77; RESP 20; TEMP 98.2; O2SAT 98
[2024-11-01 04:17] LABS: Basophils # (auto) 0.1 10 ^3/uL (0-0.2); Eosinophils # (auto) 0.3 10 ^3/uL (0-0.8); Eosinophils % (auto) 3.5 % (0.0-7.0); Hematocrit 42.6 % (36.0-46.0); Hemoglobin 14.5 g/dL (12.2-16.2); Lymphocytes # (auto) 2.9 10 ^3/uL (0.4-5.4); Lymphocytes % (auto) 37.5 % (10.0-50.0); Mean Corpuscular Hemoglobin 31.7 pg (28.0-32.0); Mean Corpuscular Hgb Conc. 34.1 g/dL (32.0-36.0); Mean Corpuscular Volume 93.1 fL (80.0-100.0); Monocytes # (auto) 0.5 10 ^3/uL (0-1.3); Neutrophils # (auto) 3.9 10 ^3/uL (1.6-8.6); Platelet Count (auto) 275 10^3/uL (140-450); Red Blood Cells 4.57 10^6/uL (4.0-5.20); Red Cell Distribution Width 13.8 % (11.8-14.3); White Blood Cell 7.7 10^3/uL (4.4-10.8)
[2024-11-01] MEDS: LIDOCAINE VISCOUS 2% 15ML UD MT ONE (04:33)
[2024-11-01] MEDS: MAALOX PLUS or MAALOX 30 ML PO ONE (04:33)
[2024-11-01] MEDS: DONNATAL 5ml ORAL Elix (BELLADONNA ALK-PHENOBARB) PO ONE ×2 (04:33→04:39)
[2024-11-01 04:44] LABS: Alanine Aminotransferase 21 U/L (7-40); Albumin 4.3 g/dL (3.2-4.8); Alkaline Phosphatase 88 U/L (46-116); Anion Gap 8 (5-15); Aspartate Aminotransferase 21 U/L (13-40); BUN/Creatinine Ratio 25.4 (10.0-20.0); Blood Urea Nitrogen 16 mg/dL (9-23); Calcium 9.1 mg/dL (8.7-10.4); Carbon Dioxide 21 mmol/L (20-31); Potassium 3.9 mmol/L (3.5-5.1); Sodium 141 mmol/L (136-145); Total Protein 6.8 g/dL (5.7-8.2)
[2024-11-01 04:47] LABS: Bilirubin, Total 0.3 mg/dL (0.2-1.0); Chloride 112 mmol/L (98-107); Glucose 142 mg/dL (74-106); Lipase 83 U/L (12-53)
[2024-11-01] MEDS ORDERED: MORPHINE SULFATE INJ 2 MG/ml SYRG IM ONE (05:30)
--- NOTE | 2024-11-01 05:35 | DVH ---
EXAM: CT Abdomen and Pelvis Without Intravenous Contrast CLINICAL INDICATION: DIFFUSE ABD PX TECHNIQUE: Axial computed tomography images of the abdomen and pelvis without intravenous contrast. This CT exam was performed using one or more of the following dose reduction techniques: automated exposure control, adjustment of the mA and/or kV according to patient size, and/or use of iterative r econstruction technique. CONTRAST: RADIATION DOSE: CTDIvol = 9.89 mGy, DLP = 499.5 mGy-cm COMPARISON: CT CT AB PEL WO CON-NO ORAL OR IV on DOS: 09/25/24, CT CT AB PEL WO CON-NO ORAL OR IV on DOS: 08/07/24, CT CT AB PEL WO CON-NO ORAL OR IV on DOS: 07/28/24, CT CT AB PEL WO CON-NO ORAL OR IV o n DOS: 07/12/24, CT CT AB PEL WO CON-NO ORAL OR IV on DOS: 06/22/24 FINDINGS: LUNG BASES: Unremarkable. No mass. No consolidation. MEDIASTINUM: Small esophageal hiatal hernia. ABDOMEN: LIVER: Hepatic cysts. Fatty liver. GALLBLADDER AND BILE DUCTS: Cholecystectomy. No ductal dilation. PANCREAS: Unremarkable. No ductal dilation. SPLEEN: Unremarkable. No splenomegaly. ADRENALS: Unremarkable. No mass. KIDNEYS AND URETERS: Punctate nephrolithiasis without hydronephrosis, bilaterally. STOMACH AND BOWEL: Fecal retention in the colon consistent with constipation. No obstruction. No mucosal thickening. PELVIS: APPENDIX: No findings to suggest acute appendicitis. BLADDER: Unremarkable. No stones. REPRODUCTIVE: Unremarkable as visualized. ABDOMEN and PELVIS: INTRAPERITONEAL SPACE: Unremarkable. No free air. No significant fluid collection. BONES/JOINTS: No acute fracture. No dislocation. SOFT TISSUES: Anterior ventral hernia, unchanged. VASCULATURE: Unremarkable. No abdominal aortic aneurysm. LYMPH NODES: Unremarkable. No enlarged lymph nodes. OTHER FINDINGS: . . IMPRESSION: 1. Small esophageal hiatal hernia. 2. Fecal retention in the colon consistent with constipation. No bowel obstruction. 3. Punctate nephrolithiasis without hydronephrosis, bilaterally.
[2024-11-01] MEDS ORDERED: MINEENE3 PR (05:48)
== END 2024-11-01 05:59 | disposition home or self-care (01) ==
LOC: ER 04:00
DX: K59.00 Constipation, unspecified (principal); K44.9 Diaphragmatic hernia without obstruction or gangrene; I10 Essential (primary) hypertension; F17.210 Nicotine dependence, cigarettes, uncomplicated; K21.9 Gastro-esophageal reflux disease without esophagitis; Z79.899 Other long term (current) drug therapy; Z90.49 Acquired absence of other specified parts of digestive tract; Z90.710 Acquired absence of both cervix and uterus; Z98.890 Other specified postprocedural states; Z98.51 Tubal ligation status
CPT/HCPCS: 36415; 74176; 80053; 83690; 85025

== ENCOUNTER 2025-01-25 08:02 | Inpatient (IN) | payer OTHER, MEDICAID ==
[~2025-01-25] VITALS: Ht 149.9 cm; Wt 86.7 kg
--- NOTE | 2025-01-25 08:50 | ED.PDOC ---
General HPI Comments 49 year old female with a Hx of HTN, Bradycardia, 3x Hernia repairs, an Appendectomy, Spondylosithesis and a L4-L5 spinal fusion surgery that was done at [facility] in [place] on the 08 of January presets to the ED for the c/c of Lumbar Back Pain. Pt states that he has been in immense pain post-op, to the point where she cannot control her Bowels. Pt states that her Surgery was done by Dr. Van from the [facility] in [place]. Pt notes on taking Hydrocodone and Gabapentin. No other associated Modifiers or symptoms at this time. Denies history of chronic steroid use or history of osteoporosis Denies history of cancer Denies fevers chills night sweats nausea vomiting unintentional weight loss Denies abdominal tearing pain Denies syncope Chief Complaint: Back Pain Time Seen by MD: 08:34 Primary Care Provider: DR ROCK Reviewed notes: Nurses Notes, Medications, Allergies Allergies: Coded Allergies: NO KNOWN ALLERGIES (Unverified , 05/10/14) Home Meds Active Scripts Cholestyramine (QUESTRAN POWDER) 4 Gm Pw, 4 GM PO BID for 14 Days, #28 POW Prov:STEVAN VERAS MD 10/02/24 Dicyclomine Hcl (BENTYL CAPSULE) 10 Mg Cp, 1 CAP PO TID, #90 CAP 11 Refills Prov:NICHO COELLO 01/05/24 Docusate Sodium (Colace) 100 Mg Cap, 1 CAP PO BID, #60 CAP Prov:STEVAN VERAS MD 10/28/23 Pantoprazole Sodium Sesquihydr (Protonix) 40 Mg Tab, 40 MG PO DAILY for 7 Days, #7 TAB Prov:CHANTAL STEWART MD 10/14/23 Reported Medications Hydrocodone-Acetaminophen (Hydrocodone Bitartrate/AC 10-325 mg) 1 Tab Tab, 1 TAB PO QID PRN for PAIN SCALE 7 THRU 10, TAB 09/25/24 Hctz (Hydrochlorothiazide) 25 Mg Tab, 25 MG PO DAILY, TAB 09/25/24 Losartan Potassium (Losartan Potassium) 100 Mg Tab, 100 MG PO DAILY for 30 Days, MG 09/25/24 Alprazolam (Alprazolam) 0.25 Mg Tab, 1 TAB PO BIDPRN PRN 08/07/24 Famotidine (Famotidine) 40 Mg Tab, 1 TAB PO QHSP PRN 08/07/24 Tamsulosin Hcl (Tamsulosin Hcl) 0.4 Mg Cap, 1 CAP PO DAILY 08/07/24 Duloxetine Hcl (Cymbalta) 60 Mg Cap, 1 CAP PO DAILY, #90 CAP 3 Refills 01/30/24 Sennosides-Docusate Sodium (Senokot S) 1 Tab Tab, 1 TAB PO BID, #30 TAB 10/14/23 Tizanidine Hydrochloride (Tizanidine Hcl) 4 Mg Tab, 4 MG PO TID, TAB 10/14/23 Gabapentin (Gabapentin) 600 Mg Tab, 1 TAB PO TID, #90 TAB 3 Refills 10/14/23 Information Source: Patient Mode of Arrival: Wheelchair Severity: Moderate Inability to void: None Timing: Weeks Duration: Since onset Prehospital treatment: None Onset: Following trauma Symptoms: None History of: None Location: None Modifying factors: Cold Past Medical History PAST MEDICAL HISTORY: HTN Surgical History: Cholecystectomy, Hernia Repair, Hysterectomy, Tubal Ligation BILLING REPRESENTATIVE History: Other Family History Family History: Reviewed,noncontributory to illness Social History Smoker: Cigarettes Alcohol: Denies ETOH Use Drugs: Denies Drug Use Lives In: Home Constitutional: reports: chills; denies: diaphoresis, fatigue, fever, malaise, sweats, weakness, others EENTM: denies: blurred vision, double vision, ear bleeding, ear discharge, ear drainage, ear pain, ear ringing, eye pain, eye redness, hearing loss, mouth pain, mouth swelling, nasal discharge, nose bleeding, nose congestion, nose pain, photophobia, tearing, throat pain, throat swelling, voice changes, others Respiratory: denies: cough, hemoptysis, orthopnea, SOB at rest, shortness of breath, SOB with excertion, stridor, wheezing, others Cardiovascular: denies: chest pain, dizzy spells, diaphoresis, Dyspnea on exertion, edema, irregular heart beat, left arm pain, lightheadedness, palpitations, PND, syncope, others Gastrointestinal: denies: abdomen distended, abdominal pain, blood streaked bowels, constipated, diarrhea, dysphagia, difficulty swallowing, hematemesis, melena, nausea, poor appetite, poor fluid intake, rectal bleeding, rectal pain, vomiting, others Genitourinary: denies: abnormal vagina bleeding, burning, dyspareunia, dysuria, flank pain, frequency, hematuria, incontinence, pain, , vagina discharge, urgency, others Neurological: denies: dizziness, fainting, headache, left sided numbness, left sided weakness, numbness, paresthesia, pre-existing deficit, right sided num bness, right sided weakness, seizure, speech problems, tingling, tremors, weakness, others Musculoskeletal: reports: back pain; denies: gout, joint pain, joint swelling, muscle pain, muscle stiffness, neck pain, others Integumetry: denies: bruises, change in color, change in hair/nails, dryness, laceration, lesions, lumps, rash, wounds, others Allergic/Immunocompromised: denies: Difficulty Healing, Frequent Infections, Hi ves, Itching, others Hematologic/Lymphatic: denies: anemia, blood clots, easy bleeding, easy bruising, swollen glands, others Endocrine: denies: excessive hunger, excessive sweating, excessive thirst, excessive urination, flushing, intolerance to cold, intolerance to heat, unexplained weight gain, unexplained weight loss, others Psychiatric: denies: anxiety, bipolar disorder, depression, hopeless, panic disorder, schizophrenia, sleepless, suicidal, others All Other Systems: Reviewed and Negative Physical Exam General Appearance: Moderate Distress, Normal HEENT: Normal ENT Inspection, Pharynx Normal, TMs Normal Neck: Full Range of Motion, Non-Tender, Normal, Normal Inspection Respiratory: Chest Non-Tender, Lungs Clear, No Accessory Muscle Use, No Respiratory Distress, Normal Breath Sounds Cardiovascular: No Edema, No JVD, No Murmur, No Gallop, Normal Peripheral Pulses, Regular Rate/Rhythm Breast Exam: Deferred Gastrointestinal: No Organomegaly, Non Tender, No Pulsatile Mass, Normal Bowel Sounds, Soft Genitalia: Deferred Pelvic: Deferred Rectal: Deferred Extremities: No calf tenderness, Normal capillary refill, Normal inspection, Normal range of motion, Non-tender, No pedal edema Musculoskeletal : Location: Bilateral Extremity Location: Back (There is a Vertical 1cm surgical incesion across L4-L5, no surrounding erythema, Localized TTP, Nurovascualr sensation intact, patellar relexes intact 2+ bilaterally) Apperance: Normal Neurologic: Alert, No Motor Deficits, Normal Affect, Normal Mood, No Sensory Deficits Cerebellar Function: Normal Reflexes: Normal Skin: Dry, Normal Color, Warm Lymphatic: No Adenopathy Was a procedure done? Was a procedure done?: No Differential Diagnosis Kidney stone (Female): Appendicitis, Bowel obstruction, Cholelithiasis, Hepatitis, Musculoskeletal pain, Ovarian torsion, Pancreatitis, Renal failure, Strain, Urinary obstruction, Urolithiasis Urinary Problem (Female): Appendicitis, Impaction, Intrauterine , Post-op complication, Pyelonephritis, Urinary retention, Urolithiasis, UTI, Vaginitis X-Ray, Labs, Meds, VS Vital Signs Date Time Temp Pulse Resp B/P (MAP) Pulse Ox O2 Delivery O2 Flow Rate FiO2 01/25/25 10:00 Room Air* 0 21 01/25/25 08:20 98.0 78 20 177/97 (123) 96 98.0 Lab Test 01/25/25 10:27 01/25/25 09:25 Range/Units Urine Color Light-yellow Yellow Urine Clarity Clear Clear Urine pH 5.0 5.0-9.0 Urine Specific [place] 1.016 1.001-1.035 Urine Protein Negative Negative Urine Ketones Negative Negative Urine Blood Trace H Negative /uL Urine Nitrite Negative Negative Urine Bilirubin Negative Negative Urine Urobilinogen Normal Negative mg/dL Urine Leukocyte Esterase Negative Negative /uL Urine RBC <1 0 - 4 /hpf Urine Microscopic WBC 1 0-5 /HPF Urine Squamous Epithelial Cells Few <5 /hpf Urine Bacteria None seen None Seen /hpf Urine Glucose Normal Normal mg/dL White Blood Count 12.4 H 4.4-10.8 10^3/uL Red Blood Count 4.86 4.0-5.20 10^6/uL Hemoglobin 15.4 12.2-16.2 g/dL Hematocrit 46.0 36.0-46.0 % Mean Corpuscular Volume 94.7 80.0-100.0 fL Mean Corpuscular Hemoglobin 31.7 28.0-32.0 pg Mean Corpuscular Hemoglobin Concent 33.4 32.0-36.0 g/dL Red Cell Distribution Width 14.0 11.8-14.3 % Platelet Count 341 140-450 10^3/uL Mean Platelet Volume 7.7 6.9-10.8 fL Neutrophils (%) (Auto) 69.4 37.0-80.0 % Lymphocytes (%) (Auto) 19.9 10.0-50.0 % Monocytes (%) (Auto) 5.3 0.0-12.0 % Eosinophils (%) (Auto) 4.6 0.0-7.0 % Basophils (%) (Auto) 0.8 0.0-2.0 % Neutrophils # (Auto) 8.6 1.6-8.6 10 ^3/uL Lymphocytes # (Auto) 2.5 0.4-5.4 10 ^3/uL Monocytes # (Auto) 0.7 0-1.3 10 ^3/uL Eosinophils # (Auto) 0.6 0-0.8 10 ^3/uL Basophils # (Auto) 0.1 0-0.2 10 ^3/uL Nucleated Red Blood Cells 0.2 % Erythrocyte Sedimentation Rate 8 0-20 mm/hr Prothrombin Time 9.8 9.3-11.8 sec Prothrombin Time INR 0.92 0.9-1.15 Sodium Level 141 136-145 mmol/L Potassium Level 3.7 3.5-5.1 mmol/L Chloride Level 112 H 98-107 mmol/L Carbon Dioxide Level 22 20-31 mmol/L Anion Gap 7 5-15 Blood Urea Nitrogen 16 9-23 mg/dL Creatinine 0.57 0.550-1.02 mg/dL Glomerular Filtration Rate Calc 111 >90 mL/min BUN/Creatinine Ratio 28.1 H 10.0-20.0 Serum Glucose 99 74-106 mg/dL Calcium Level 9.8 8.7-10.4 mg/dL Total Bilirubin 0.3 0.2-1.0 mg/dL Aspartate Amino Transferase (AST) 16 13-40 U/L Alanine Aminotransferase (ALT) 18 7-40 U/L Alkaline Phosphatase 101 46-116 U/L C-Reactive Protein High Sensitivity 0.21 <1.0 mg/dL Total Protein 7.3 5.7-8.2 g/dL Albumin 4.5 3.2-4.8 g/dL Lipase 34 12-53 U/L PATIENT: BEVERLY SPARKSCCT: [id number]: [id number] : 1975 LOC: ER ROOM / BED: / AGE / SEX: 49 / F ADM STATUS: REG ER SERVICE [id number] ORDERING PHYSICIAN: LIA HENRIQUEZ NP PROCEDURE(s): LS2CT - LS SPINE WO CONTRAST REASON: Midline TTP. L fusion L4-5 January 08 ORDER NUMBER(s): [id number], ACCESSION NUMBER(s): [id number] EXAM: CT LS SPINE WO CONTRAST HISTORY: Midline TTP. L fusion L4-5 January 08 COMPARISON: CT LS SPINE W CONTRAST on DOS: 05/11/24 CTDIvol 9.9 mGy, DLP 499.5 mGy*cm. TECHNIQUE: Multiple axial CT images of the spine were obtained using bone algorithm. Axial and coronal reformatting was done. Bone and soft tissue windows were reviewed. FINDINGS: No evidence of definite acute fracture, spinal dislocation, or significant appearing acute subluxation is seen. Lumbar spinal fixation hardware and intervertebral disc spacer material at L4 and L5. Degenerative disc space narrowing at L5-S1. Post laminectomy changes at L4-L5. IMPRESSION: No definite CT evidence of acute fracture or dislocation of the bony lumbar spine. ATED BY: TRENT JOE MD DICTATED DATE/TIME: 01/25/25937 SIGNED BY: TRENT JOE MD SIGNED DATE/TIME: 01/25/25937 CC: X-Ray, Labs, Meds, VS Comment 49 year old female with a Hx of HTN, Bradycardia, 3x Hernia repairs, an Appendectomy, Spondylosithesis and a L4-L5 spinal fusion surgery that was done at [facility] in [place] on the 08 of January presets to the ED for the c/c of Lumbar Back Pain. Patient arrives alert and oriented, ABC's intact, afebrile, vital signs stable, saturating well in room air Peripheral IV insertion+ labs were ordered. CBC was ordered to exclude anemia, blood loss, or infection. CMP was ordered to exclude electrolyte abnormalities, renal failure, dehydration, hyperglycemia and/or liver enzyme abnormalities. INR were ordered to rule out coagulopathy. Urinalysis was ordered to rule out UTI or hematuria. Lipase was ordered L-Spine CT was Ordered Diagnostic imaging ordered by me and results interpreted by radiology :IMPRESSION: No definite CT evidence of acute fracture or dislocation of the bony lumbar spine. I considered cauda equina, spinal cord compression, vertebral malignancy/mets, acute spinal fracture, vertebral osteomyelitis, epidural abscess, infected or obstructed kidney stone therefore CT scan ordered Patient was given:Morphine 4mg IM with minimal improvement. Tolerated medications with no adverse reaction. The patient's workup reveals that the patient needs further evaluation and/or treatment for the above medical conditions. Patient may benefit from MRI +- orthoconsultation and pain control Patient verbalized understanding of the above and is awaiting further evaluation by the admitting service. Time of 1ST Reevaluation: 09:05 Reevaluation 1ST: Unchanged Patient Education/Counseling: Diagnosis, Treatment Family Education/Counseling: No Family Present SEPSIS Sepsis Screen Physician Orders Heplock Iv (01/25/25 ) Ls Spine Wo Contrast (01/25/25 08:59) * Picc Line Consult (01/25/25 11:14) Vital Signs Date Time Temp Pulse Resp B/P (MAP) Pulse Ox O2 Delivery O2 Flow Rate FiO2 01/25/25 10:00 Room Air* 0 21 01/25/25 08:20 98.0 78 20 177/97 (123) 96 98.0 Laboratory Tests Test 01/25/25 09:25 White Blood Count 12.4 10^3/uL (4.4-10.8) H Departure 1 Departure Time of Disposition: 10:48 Impression: Primary Impression: Back pain Qualified Codes: M54.50 - Low back pain, unspecified Disposition: ADMITTED INPATIENT Condition: Serious Critical Care Note Critical Care Time?: No Stability Stability form required: No Heart Score Heart Score: Heart Score Response (Comments) Value History N/A 0 EKG N/A 0 Age N/A 0 Risk Factors N/A 0 Troponin N/A 0 Total 0 I personally scribed for LIA HENRIQUEZ NP (STEPHENOMA) on 01/25/25 at 08:50. Electronically submitted by Davi Nguyen ([email or web address]). I personally scribed for LIA HENRIQUEZ NP (STEPHENOMA) on 01/25/25 at 09:06. Electronically submitted by Davi Nguyen ([email or web address]). I personally scribed for LIA HENRIQUEZ NP (SHERRYAYOMA) on 01/25/25 at 09:54. Electronically submitted by Davi Nguyen ([email or web address]). LIA HENRIQUEZ BELLHOP SERVICE CAPTAIN Jan 25, 2025 08:50
--- NOTE | 2025-01-25 09:41 | DVH ---
EXAM: CT LS SPINE WO CONTRAST HISTORY: Midline TTP. L fusion L4-5 January 08 COMPARISON: CT LS SPINE W CONTRAST on DOS: 05/11/24 CTDIvol 9.9 mGy, DLP 499.5 mGy*cm. TECHNIQUE: Multiple axial CT images of the spine were obtained using bone algorithm. Axial and garnica l reformatting was done. Bone and soft tissue windows were reviewed. FINDINGS: No evidence of definite acute fracture, spinal dislocation, or significant appearing acute subluxatio n is seen. Lumbar spinal fixation hardware and intervertebral disc spacer material at L4 and L5. Degenerative di sc space narrowing at L5-S1. Post laminectomy changes at L4-L5. IMPRESSION: No definite CT evidence of acute fracture or dislocation of the bony lumbar spine.
[2025-01-25 09:55] LABS: Hematocrit 46.0 % (36.0-46.0); Hemoglobin 15.4 g/dL (12.2-16.2); Mean Corpuscular Hemoglobin 31.7 pg (28.0-32.0); Mean Corpuscular Volume 94.7 fL (80.0-100.0); Nucleated Red Blood Cells % 0.2 %
[2025-01-25 10:04] LABS: INR 0.92 (0.9-1.15); Prothrombin Time 9.8 sec (9.3-11.8)
[2025-01-25 10:11] LABS: Alanine Aminotransferase 18 U/L (7-40); Albumin 4.5 g/dL (3.2-4.8); Alkaline Phosphatase 101 U/L (46-116); Anion Gap 7 (5-15); BUN/Creatinine Ratio 28.1 (10.0-20.0); Blood Urea Nitrogen 16 mg/dL (9-23); Calcium 9.8 mg/dL (8.7-10.4); Carbon Dioxide 22 mmol/L (20-31); Glucose 99 mg/dL (74-106); Potassium 3.7 mmol/L (3.5-5.1); Sodium 141 mmol/L (136-145); Total Protein 7.3 g/dL (5.7-8.2)
[2025-01-25 10:12] LABS: Bilirubin, Total 0.3 mg/dL (0.2-1.0); Chloride 112 mmol/L (98-107)
[2025-01-25 10:23] LABS: Lipase 34 U/L (12-53)
[2025-01-25 10:54] LABS: Urine Protein, UAD Negative (Negative)
--- NOTE | 2025-01-25 11:33 | DVHHP2 ---
History of Present Illness Reason for Visit: Low back pain History of Present Illness 49-year-old female past medical history hypertension bradycardia surgical history gallbladder surgery hernia repair hysterectomy tubal ligation chief complaint patient states she had recent back surgery December 31, 2024 at [facility] in [place] seen by Neurosurgery Dr. Infante. According to patient she states she had a surgery on that day and since then she has been having some pain from radiating down her left leg with some numbness in bowel and urinary issues. Patient states her urinary issues was so bad on January [address] a [place] catheter and she pulled the catheter out on the due to changes in the urine. She states she is able to urinate but she does have issues with urination on self and bowel incontinence. But according to the patient this has been something she has been dealing with since the surgery. She did say she had a readmission for intractable back pain, they did an MRI and workup and everything was normal only found to have inflammation. And she was discharged home She states she did reach out to her neuro surgery doctor and was told to come to [facility] for admission but she opted to come here due to distance and not able to get to the hospital due to not having a vehicle. Patient states last night she did slip in her leg went different directions and now she has been having severe pain since seven the p.m. last night she states she has a drag her leg when walking. When evaluating patient's labs and imaging from ED patient was found to have a white count of 12 point six CBC was unremarkable ESR was negative BNP was unremarkable CT L-spine shows pos top changes otherwise unremarkable. We will admit for pain management and ask ortho spine for evaluation Past Medical History See HPI above Past Surgical History Gallbladder surgery hernia repair hysterectomy tubal ligation spinal fusion L4- L5 in December 31 2024 Family History Reviewed, non-contributory to the management of this case. Past Social History The patient lives at home, denies smoking, alcohol or illicit drugs abuse. Review of Systems Constitutional: No: Fever, Chills, Sweats, Weakness, Malaise, Other Eyes: No: Pain, Vision change, Conjunctivae inflammation, Eyelid inflammation, Other, Redness ENT: No: Ear pain, Ear discharge, Nose pain, Nose discharge, Nose congestion, Mouth pain, Mouth swelling, Throat pain, Throat swelling, Other Respiratory: No: Cough, Dry, Shortness of breath, SOB with excertion, Wheezing, Hemoptysis, Pleuritic Pain, Sputum, Wheezing, Other Cardiovascular: No: Chest Pain, Palpitations, Orthopnea, Paroxysmal Noc. Dyspnea, Edema, Lt Headedness, Other Gastrointestinal: No: Nausea, Vomiting, Abdominal Pain, Diarrhea, Constipation, Melena, Hematochezia, Other Genitourinary: No Dysuria, No Frequency, No Incontinence, No Hematuria, No Retention, No Other Musculoskeletal: back pain; No: other, neck pain, shoulder pain, arm pain, hand pain, leg pain, foot pain Skin: No: Rash, Lesions, Jaundice, Bruising, Other Neurological: No: Weakness, Numbness, Incoordination, Change in speech, Confusion, Seizures, Other Allergies: Coded Allergies: NO KNOWN ALLERGIES (Unverified , 05/10/14) Exam Vital Signs Vital Signs Date Time Temp Pulse Resp B/P (MAP) Pulse Ox O2 Delivery O2 Flow Rate FiO2 01/25/25 08:20 98.0 78 20 177/97 (123) 96 98.0 General Appearance: Alert, Oriented X3, Cooperative, No acute distress HEENT: Atraumatic, PERRLA, EOMI, Mucous membr. moist/pink Respiratory: Clear to auscultation, Normal air movement Cardiovascular: Regular rate, Normal S1, Normal S2, No murmurs Abdominal: Normal bowel sounds, Soft, No tenderness, No hepatospenomegaly, No masses, Other (Declined rectal tone exam) Extremities: No clubbing, No cyanosis, No edema, Normal pulses, No tenderness/swelling Skin: No breakdown (Healing paraspinal lower lumbar surgical incisions no erythema no drainage tender upon palpation no fluctuance felt) Neuro: Normal speech, Strength at 5/5 X4 ext, Normal tone, Sensation intact, C ranial nerves 3-12 NL, Reflexes 2+ Psych/Mental Status: Mental status NL, Mood NL Labs/Xrays CT L-spine postop changes otherwise unremarkable I reviewed labs, imaging CT scan abdomen pelvis, EKG and all diagnostic studies on this patient from ED records and the medical chart Labs Test 01/25/25 10:27 01/25/25 09:25 Range/Units Urine Color Light-yellow Yellow Urine Clarity Clear Clear Urine pH 5.0 5.0-9.0 Urine Specific [place] 1.016 1.001-1.035 Urine Protein Negative Negative Urine Ketones Negative Negative Urine Blood Trace H Negative /uL Urine Nitrite Negative Negative Urine Bilirubin Negative Negative Urine Urobilinogen Normal Negative mg/dL Urine Leukocyte Esterase Negative Negative /uL Urine RBC <1 0 - 4 /hpf Urine Microscopic WBC 1 0-5 /HPF Urine Squamous Epithelial Cells Few <5 /hpf Urine Bacteria None seen None Seen /hpf Urine Glucose Normal Normal mg/dL White Blood Count 12.4 H 4.4-10.8 10^3/uL Red Blood Count 4.86 4.0-5.20 10^6/uL Hemoglobin 15.4 12.2-16.2 g/dL Hematocrit 46.0 36.0-46.0 % Mean Corpuscular Volume 94.7 80.0-100.0 fL Mean Corpuscular Hemoglobin 31.7 28.0-32.0 pg Mean Corpuscular Hemoglobin Concent 33.4 32.0-36.0 g/dL Red Cell Distribution Width 14.0 11.8-14.3 % Platelet Count 341 140-450 10^3/uL Mean Platelet Volume 7.7 6.9-10.8 fL Neutrophils (%) (Auto) 69.4 37.0-80.0 % Lymphocytes (%) (Auto) 19.9 10.0-50.0 % Monocytes (%) (Auto) 5.3 0.0-12.0 % Eosinophils (%) (Auto) 4.6 0.0-7.0 % Basophils (%) (Auto) 0.8 0.0-2.0 % Neutrophils # (Auto) 8.6 1.6-8.6 10 ^3/uL Lymphocytes # (Auto) 2.5 0.4-5.4 10 ^3/uL Monocytes # (Auto) 0.7 0-1.3 10 ^3/uL Eosinophils # (Auto) 0.6 0-0.8 10 ^3/uL Basophils # (Auto) 0.1 0-0.2 10 ^3/uL Nucleated Red Blood Cells 0.2 % Erythrocyte Sedimentation Rate 8 0-20 mm/hr Prothrombin Time 9.8 9.3-11.8 sec Prothrombin Time INR 0.92 0.9-1.15 Sodium Level 141 136-145 mmol/L Potassium Level 3.7 3.5-5.1 mmol/L Chloride Level 112 H 98-107 mmol/L Carbon Dioxide Level 22 20-31 mmol/L Anion Gap 7 5-15 Blood Urea Nitrogen 16 9-23 mg/dL Creatinine 0.57 0.550-1.02 mg/dL Glomerular Filtration Rate Calc 111 >90 mL/min BUN/Creatinine Ratio 28.1 H 10.0-20.0 Serum Glucose 99 74-106 mg/dL Calcium Level 9.8 8.7-10.4 mg/dL Total Bilirubin 0.3 0.2-1.0 mg/dL Aspartate Amino Transferase (AST) 16 13-40 U/L Alanine Aminotransferase (ALT) 18 7-40 U/L Alkaline Phosphatase 101 46-116 U/L C-Reactive Protein High Sensitivity 0.21 <1.0 mg/dL Total Protein 7.3 5.7-8.2 g/dL Albumin 4.5 3.2-4.8 g/dL Lipase 34 12-53 U/L SEPSIS Sepsis Screen Date sepsis recognized/suspect: Jan 25, 2025 Time Sepsis recognized/suspect: 819 Recent Procedure: No On Antibiotic Therapy: No Respiratory Rate >20: No Heart Rate >90: No Temp<36 C (96.8 F) or >38.3 C: No SBP <90 or MAP <65 mmHG: No New Acute Mental Status Change: No Is the patient on CPAP, BIPAP,: No Physician Orders Heplock Iv (01/25/25 ) Ls Spine Wo Contrast (01/25/25 08:59) * Picc Line Consult (01/25/25 11:14) Vital Signs Date Time Temp Pulse Resp B/P (MAP) Pulse Ox O2 Delivery O2 Flow Rate FiO2 01/25/25 08:20 98.0 78 20 177/97 (123) 96 98.0 Laboratory Tests Test 01/25/25 09:25 White Blood Count 12.4 10^3/uL (4.4-10.8) H Assessment/Plan Assessment/Plan acute intractable low back pain with bowel and urine incontinence ct l spine post op changes otherwise unremarkable s/p recent l4-l5 spinal fusion surgery on 12/31/2024 ordered Dilaudid prn pain ordered gabapentin, Robaxin and dexamethasone for now ortho spine consult fu recs neuro checks q4h chronic problems htn bradycardia fen/ppx diet hl scd lovenox plan admit to medicine Plan discussed with: Patient Date of Service: Jan 25, 2025 Billing Provider: ROCAEL ROBERTO DNP Common Visit Codes: [id number] INP/OBS CARE (HIGH) ROCAEL ROBERTO DNP Jan 25, 2025 11:33
[2025-01-25] MEDS ORDERED: DOCUSATE SOD 100 MG CAP PO PRN (13:15)
[2025-01-25] MEDS ORDERED: ONDANSETRON HCL 4 MG/2 ML VIAL IV PRN (13:15)
[2025-01-25] MEDS ORDERED: NITROGLYCERIN 0.4 MG SL TAB SL PRN (13:15)
[2025-01-25] MEDS: MORPHINE SULFATE 4 MG/ML SYR/VIAL IV ONE (13:38)
[2025-01-25] MEDS: HYDROmorphone HCL 2 MG/ML VL/or syr IV PRN ×2 (13:44→15:04)
[2025-01-25] MEDS: TIZANIDINE HCL 4 MG PO SCH (14:00)
[2025-01-25] MEDS ORDERED: PATIENTS OWN MEDICATION (Gabapentin 1 TAB) PO SCH (14:00)
[2025-01-25] MEDS: GABAPENTIN 300 MG CAP PO SCH ×2 (14:49)
[2025-01-25 16:15] VITALS: BP 156/87; PULSE 60; RESP 18; TEMP 97.6; O2SAT 98
[2025-01-25 16:25] VITALS: RESP 20
[2025-01-25] MEDS: METHOCARBAMOL 500 MG TAB PO SCH (16:51)
[2025-01-25] MEDS: ALPRAZolam 0.25 MG TAB PO PRN (16:51)
[2025-01-25] MEDS: KETOROLAC TROMETH 30 MG/ML 1ML VIAL IV ONE (18:01)
[2025-01-25 20:00] VITALS: RESP 18
[2025-01-25 21:00] VITALS: BP 123/73; PULSE 71; RESP 19; TEMP 98.1; O2SAT 95
[2025-01-25] MEDS: CHOLESTYRAMINE 4 GM POWDER PO SCH (21:32)
[2025-01-25] MEDS: DOCUSATE SOD 100 MG CAP PO SCH (21:34)
[2025-01-25] MEDS: SENNOSIDES DOCUSATE SODIUM PO SCH (21:36)
[2025-01-26] VITALS (8 sets, daily range): BP systolic 114–154; BP diastolic 71–104; PULSE 55–75; RESP 15–22; TEMP 97.4–98.3; O2SAT 92–97
[2025-01-26 06:05] LABS: Hematocrit 44.1 % (36.0-46.0); Hemoglobin 14.9 g/dL (12.2-16.2); Mean Corpuscular Hemoglobin 32.1 pg (28.0-32.0); Mean Corpuscular Volume 94.7 fL (80.0-100.0); Nucleated Red Blood Cells % 0.0 %
[2025-01-26 06:26] LABS: Alanine Aminotransferase 16 U/L (7-40); Albumin 4.5 g/dL (3.2-4.8); Alkaline Phosphatase 101 U/L (46-116); Anion Gap 9 (5-15); BUN/Creatinine Ratio 32.1 (10.0-20.0); Blood Urea Nitrogen 17 mg/dL (9-23); Calcium 10.2 mg/dL (8.7-10.4); Carbon Dioxide 20 mmol/L (20-31); Potassium 4.0 mmol/L (3.5-5.1); Sodium 140 mmol/L (136-145); Total Protein 7.0 g/dL (5.7-8.2)
[2025-01-26 06:27] LABS: Bilirubin, Total 0.4 mg/dL (0.2-1.0)
[2025-01-26 06:29] LABS: Chloride 111 mmol/L (98-107); Glucose 132 mg/dL (74-106)
[2025-01-26] MEDS: PANTOPRAZOLE 40 MG TAB PO SCH (08:47)
[2025-01-26] MEDS: hydroCHLOROthiazide 25 MG TAB PO SCH (08:47)
[2025-01-26] MEDS: TAMSULOSIN HYDROCHLORIDE 0.4 MG CAP PO SCH (08:48)
[2025-01-26] MEDS: LOSARTAN POTASSIUM 50 MG TAB PO SCH (08:48)
[2025-01-26] MEDS: ENOXAPARIN SOD 40 MG/0.4 ML SYRINGE SC SCH (08:49)
[2025-01-26] MEDS ORDERED: PATIENTS OWN MEDICATION (Duloxetine Hcl (Cymbalta) 1 CAP) PO SCH (10:00)
[2025-01-26] MEDS ORDERED: PATIENTS OWN MEDICATION (Losartan Potassium 100 MG) PO SCH (10:00)
[2025-01-26] MEDS ORDERED: CIPR-173 PO (11:51)
[2025-01-26] MEDS: HYDROcodone-ACET 10/325MG TAB PO PRN (14:40)
--- NOTE | 2025-01-26 17:17 | DVHINCON2 ---
Consultation - Surgical Date Seen: Jan 26, 2025 Referring Physician Referring Physician Attending Doctor: Denise Webber MD Reason for Consultation Reason for Visit: Low back pain History of Present Illness History of Present Illness History of Present Illness 49-year-old female past medical history hypertension bradycardia surgical history gallbladder surgery hernia repair hysterectomy tubal ligation chief complaint patient states she had recent back surgery December 31, 2024 at [facility] in [place] seen by Neurosurgery Dr. Infante. According to patient she states she had a surgery on that day and since then she has been having some pain from radiating down her left leg with some numbness in bowel and urinary issues. Patient states her urinary issues was so bad on January [address] a [place] catheter and she pulled the catheter out on the due to changes in the urine. She states she is able to urinate but she does have issues with urination on self and bowel incontinence. But according to the patient this has been something she has been dealing with since the surgery. She did say she had a readmission for intractable back pain, they did an MRI and workup and everything was normal only found to have inflammation. And she was discharged home She states she did reach out to her neuro surgery doctor and was told to come to [facility] for admission but she opted to come here due to distance and not able to get to the hospital due to not having a vehicle. Patient states last night she did slip in her leg went different d irections and now she has been having severe pain since seven the p.m. last night she states she has a drag her leg when walking. When evaluating patient's labs and imaging from ED patient was found to have a white count of 12 point six CBC was unremarkable ESR was negative BNP was unremarkable CT L-spine shows postop changes otherwise unremarkable. We will admit for pain management and ask ortho spine for evaluation . Past Medical/Surgical History Past Medical/Surgical History Past Medical History See HPI above Past Surgical History Gallbladder surgery hernia repair hysterectomy tubal ligation spinal fusion L4- L5 in December 31 2024 Family and Social History Family and Social History Family History Reviewed, non-contributory to the management of this case. Past Social History The patient lives at home, denies smoking, alcohol or illicit drugs abuse Allergies and medications Allergies: Coded Allergies: NO KNOWN ALLERGIES (Unverified , 05/10/14) Home Meds Active Scripts Ciprofloxacin Hcl (Cipro) 500 Mg Tab, 500 MG PO BID for 7 Days, #14 TAB Prov:DENISE WEBBER MD 01/26/25 Cholestyramine (QUESTRAN POWDER) 4 Gm Pw, 4 GM PO BID for 14 Days, #28 POW Prov:STEVAN VERAS MD 10/02/24 Dicyclomine Hcl (BENTYL CAPSULE) 10 Mg Cp, 1 CAP PO TID, #90 CAP 11 Refills Prov:NICHO COELLO 01/05/24 Docusate Sodium (Colace) 100 Mg Cap, 1 CAP PO BID, #60 CAP Prov:STEVAN VERAS MD 10/28/23 Pantoprazole Sodium Sesquihydr (Protonix) 40 Mg Tab, 40 MG PO DAILY for 7 Days, #7 TAB Prov:CHANTAL STEWART MD 10/14/23 Reported Medications Hydrocodone-Acetaminophen (Hydrocodone Bitartrate/AC 10-325 mg) 1 Tab Tab, 1 TAB PO QID PRN for PAIN SCALE 7 THRU 10, TAB 09/25/24 Hctz (Hydrochlorothiazide) 25 Mg Tab, 25 MG PO DAILY, TAB 09/25/24 Losartan Potassium (Losartan Potassium) 100 Mg Tab, 100 MG PO DAILY for 30 Days, MG 09/25/24 Alprazolam (Alprazolam) 0.25 Mg Tab, 1 TAB PO BIDPRN PRN 08/07/24 Famotidine (Famotidine) 40 Mg Tab, 1 TAB PO QHSP PRN 08/07/24 Tamsulosin Hcl (Tamsulosin Hcl) 0.4 Mg Cap, 1 CAP PO DAILY 08/07/24 Duloxetine Hcl (Cymbalta) 60 Mg Cap, 1 CAP PO DAILY, #90 CAP 3 Refills 01/30/24 Sennosides-Docusate Sodium (Senokot S) 1 Tab Tab, 1 TAB PO BID, #30 TAB 10/14/23 Tizanidine Hydrochloride (Tizanidine Hcl) 4 Mg Tab, 4 MG PO TID, TAB 10/14/23 Gabapentin (Gabapentin) 600 Mg Tab, 1 TAB PO TID, #90 TAB 3 Refills 10/14/23 Review of systems Review of Systems: HEENT:Normal, CVS:Abnormal (htn, bradycardia), RESPIRA TORY:Normal, GI:Abnormal (gallbladder surgery, hernia repair), :Normal, MSK:Normal, NEURO:Abnormal (post laminectomy and herniated disc related pain) Examination Vital signs Imaging: PROCEDURE(s): MSL - LUMBAR SPINE WO CONTRAST REASON: evaluation for post laminectomy syndrome ORDER NUMBER(s): [id number], ACCESSION NUMBER(s): [id number] PROCEDURE: MRI LUMBAR SPINE WO CONTRAST Indication: evaluation for post laminectomy syndrome COMPARISON: None TECHNIQUE: Multiplanar multisequence images of the the lumbar spine are obtained. FINDINGS: For the purpose of this examination, there are 5 lumbar vertebral body types counting from the lumbosacral junction. There is posterior fixation of the L4 and L5 vertebral bodies with resultant susceptibility artifact. There is a large disc extrusion at L4-5 which extends 8 mm posteriorly and 2 cm superiorly. This compresses upon the descending left L4 nerve root. There is al so resultant severe spinal canal stenosis at the L4 vertebral body level with the thecal sac measuring 4 mm AP. At the L4-5 disc space level, the thecal sac measures 7 mm AP consistent with moderate spinal canal stenosis. The lumbar vertebral body heights are maintained. Moderate multilevel disc space narrowing and desiccation most pronounced at L2-3, L3-4, L4-5 and L5-S1. Alignme nt grossly preserved. T2 bright lesion in the liver measuring 10 mm. Posterior paraspinal edema at the level of the L3 through L5 vertebral bodies. L1-2: No spinal canal, neural foraminal stenosis. L2-3: 2 mm disc protrusion. Mild facet and flavum hypertrophy. No spinal canal stenosis. Mild bilateral neural foraminal stenosis. L3-4: Small disc protrusion. [id number] facet and flavum hypertrophy. No spinal canal stenosis. Mild bilateral neural foraminal stenosis. L4-5: Left paracentral disc extrusion as described extending 9 mm posteriorly. At the thecal sac measures 7 mm AP consistent with moderate spinal canal stenosis. Severe bilateral neural foraminal stenosis. L5-S1: 3 mm disc protrusion. Moderate facet and flavum hypertrophy. No spinal canal stenosis. Moderate bilateral neural foraminal stenosis. IMPRESSION: Posterior fixation of the L4 and L5 vertebral bodies and associated laminectomy. Large disc extrusion at L4-5 which extends 8 mm posteriorly and 2 cm superiorly. This results in severe spinal canal stenosis at the L4 vertebral body level and moderate spinal canal stenosis at the L4-5 disc space level. The disc extrusion compresses upon the descending L4 nerve root. Recommend neurosurgical consultation for further management. Severe neural foraminal stenosis L4-5. Moderate foraminal stenosis L5-S1. Mild neural foraminal stenosis L2-3 and L3-4. T2 bright lesion in the liver measuring 10 mm, appears to represent a cyst based upon CT from 06/01/2024 Other findings as described. : CT LS SPINE WO CONTRAST HISTORY: Midline TTP. L fusion L4-5 January 08 COMPARISON: CT LS SPINE W CONTRAST on DOS: 05/11/24 CTDIvol 9.9 mGy, DLP 499.5 mGy*cm. TECHNIQUE: Multiple axial CT images of the spine were obtained using bone algorithm. Axial and coronal reformatting was done. Bone and soft tissue windows were reviewed. FINDINGS: No evidence of definite acute fracture, spinal dislocation, or significant appe aring acute subluxation is seen. Lumbar spinal fixation hardware and intervertebral disc spacer material at L4 and L5. Degenerative disc space narrowing at L5-S1. Post laminectomy changes at L4-L5. IMPRESSION: No definite CT evidence of acute fracture or dislocation of the bony lumbar spine. Vital Signs Date Time Temp Pulse Resp B/P (MAP) Pulse Ox O2 Delivery O2 Flow Rate FiO2 01/26/25 12:40 98.2 75 16 154/87 (109) 96 98.2 01/26/25 07:30 Room Air* 0 21 Medications Current Medications Medications (Trade) Dose Ordered Sig/Pedro Route PRN Reason Start Time Stop Time Status Last Admin Cholestyramine Resin (Questran Powder) 4 gm BID PO 01/25/25 22:00 01/26/25 08:47 Docusate Sodium (Colace Capsule) 100 mg BID PO 01/25/25 22:00 01/26/25 08:48 Hydrochlorothiazide (hydroCHLOROthiazide TABLET) 25 mg DAILY PO 01/26/25 10:00 01/26/25 08:47 Pantoprazole Sodium (Protonix Tablet) 40 mg DAILY PO 01/26/25 10:00 01/26/25 08:47 Tamsulosin HCl (Flomax) 0.4 mg DAILY PO 01/26/25 10:00 01/26/25 08:48 Patient Own Medication 1 cap DAILY PO 01/26/25 10:00 UNV Patient Own Medication 100 mg DAILY PO 01/26/25 10:00 UNV Patient Own Medication 1 tab BID PO 01/25/25 22:00 Enoxaparin Sodium (Lovenox) 40 mg DAILY SC 01/26/25 10:00 01/26/25 08:49 Methocarbamol (Robaxin) 1,000 mg QID PO 01/25/25 18:00 01/26/25 11:41 Duloxetine HCl (Cymbalta Capsule) 60 mg DAILY PO 01/26/25 10:00 01/26/25 08:48 Losartan Potassium (Cozaar Tablet) 100 mg DAILY PO 01/26/25 10:00 01/26/25 08:48 Acetaminophen/ Hydrocodone Bitart ([place] 10/325MG Tab) 1 tab Q4HP PRN PO SEVERE PAIN (7-10 PAIN SCALE) 01/26/25 13:00 01/26/25 14:40 Laboratory Labs Test 01/26/25 05:05 01/25/25 10:27 01/25/25 09:25 Range/Units White Blood Count 10.3 4.4-10.8 10^3/uL Red Blood Count 4.65 4.0-5.20 10^6/uL Hemoglobin 14.9 12.2-16.2 g/dL Hematocrit 44.1 36.0-46.0 % Mean Corpuscular Volume 94.7 80.0-100.0 fL Mean Corpuscular Hemoglobin 32.1 H 28.0-32.0 pg Mean Corpuscular Hemoglobin Concent 33.9 32.0-36.0 g/dL Red Cell Distribution Width 14.1 11.8-14.3 % Platelet Count 349 140-450 10^3/uL Mean Platelet Volume 7.8 6.9-10.8 fL Neutrophils (%) (Auto) 86.6 H 37.0-80.0 % Lymphocytes (%) (Auto) 11.7 10.0-50.0 % Monocytes (%) (Auto) 1.4 0.0-12.0 % Eosinophils (%) (Auto) 0.0 0.0-7.0 % Basophils (%) (Auto) 0.3 0.0-2.0 % Neutrophils # (Auto) 8.9 H 1.6-8.6 10 ^3/uL Lymphocytes # (Auto) 1.2 0.4-5.4 10 ^3/uL Monocytes # (Auto) 0.1 0-1.3 10 ^3/uL Eosinophils # (Auto) 0 0-0.8 10 ^3/uL Basophils # (Auto) 0 0-0.2 10 ^3/uL Nucleated Red Blood Cells 0.0 % Sodium Level 140 136-145 mmol/L Potassium Level 4.0 3.5-5.1 mmol/L Chloride Level 111 H 98-107 mmol/L Carbon Dioxide Level 20 20-31 mmol/L Anion Gap 9 5-15 Blood Urea Nitrogen 17 9-23 mg/dL Creatinine 0.53 L 0.550-1.02 mg/dL Glomerular Filtration Rate Calc 113 >90 mL/min BUN/Creatinine Ratio 32.1 H 10.0-20.0 Serum Glucose 132 H 74-106 mg/dL Calcium Level 10.2 8.7-10.4 mg/dL Total Bilirubin 0.4 0.2-1.0 mg/dL Aspartate Amino Transferase (AST) 13 13-40 U/L Alanine Aminotransferase (ALT) 16 7-40 U/L Alkaline Phosphatase 101 46-116 U/L Total Protein 7.0 5.7-8.2 g/dL Albumin 4.5 3.2-4.8 g/dL Urine Color Light-yellow Yellow Urine Clarity Clear Clear Urine pH 5.0 5.0-9.0 Urine Specific [place] 1.016 1.001-1.035 Urine Protein Negative Negative Urine Ketones Negative Negative Urine Blood Trace H Negative /uL Urine Nitrite Negative Negative Urine Bilirubin Negative Negative Urine Urobilinogen Normal Negative mg/dL Urine Leukocyte Esterase Negative Negative /uL Urine RBC <1 0 - 4 /hpf Urine Microscopic WBC 1 0-5 /HPF Urine Squamous Epithelial Cells Few <5 /hpf Urine Bacteria None seen None Seen /hpf Urine Glucose Normal Normal mg/dL Erythrocyte Sedimentation Rate 8 0-20 mm/hr Prothrombin Time 9.8 9.3-11.8 sec Prothrombin Time INR 0.92 0.9-1.15 C-Reactive Protein High Sensitivity 0.21 <1.0 mg/dL Lipase 34 12-53 U/L Examination: GENERAL:Normal, HEENT:Normal, NECK:Normal, LUNGS:Normal, CVS :Normal, ABDOMEN:Normal, MSK:Normal, SKIN:Normal, NEURO:Abnormal (LBP, bilateral leg pain L>R ), :Normal Problem List/Assessment/Plan Problems: (1) Lumbar post-laminectomy syndrome Assessment and Plan Large disc extrusion at L4-5 which extends 8 mm posteriorly and 2 cm superiorly. This results in severe spinal canal stenosis at the L4 vertebral body level and moderate spinal canal stenosis at the L4-5 disc space level. The disc extrusion compresses upon the descending L4 nerve root. Severe neural foraminal stenosis L4-5. Moderate foraminal stenosis L5-S1. Mild neural foraminal stenosis L2-3 and L3-4. Recommend neurosurgical consultation for further management. Return to surgeon who preformed the surgery Further care and management per admitting team discretion PT evaluation and treatment recommendations, safe discharge recommendations Stopped Robaxin changed to Flexeril 10mg TID PO Consider effective pain medication Recommend transfer to a facility with access to DR Van for further care and possible revision surgery for findings as stated above. Call with questions [facility] Orthopaedic Spine Surgery nurse practitioner For Dr Amanda Lagos Patient was examined, chart reviewed, labs evaluated, and diagnostic studies and findings analyzed. Case was discussed with Dr. Emmett Lagos who formulated the plan of care. This medical document was created using an electronic medical record system with [employer] dictation system. Although this document has been carefully reviewed, there might still be some phonetic and typographical errors. These areas are purely typographical due to imperfections of the software programs, and do not reflect any compromise in the patient's medical care.. Plan discussed with Plan discussed with: Patient, Other Visit Coding Surgery Date of Service if different f: Jan 26, 2025 Billing Provider: SILVIO BRADEN NP Surgery Visit Codes: 26552 - INP CONSULT <40 MIN SILVIO BRADEN NP Jan 26, 2025 17:17
--- NOTE | 2025-01-26 18:56 | DVH ---
PROCEDURE: MRI LUMBAR SPINE WO CONTRAST Indication: evaluation for post laminectomy syndrome COMPARISON: None TECHNIQUE: Multiplanar multisequence images of the the lumbar spine are obtained. FINDINGS: For the purpose of this examination, there are 5 lumbar vertebral body types counting from the lumbos acral junction. There is posterior fixation of the L4 and L5 vertebral bodies with resultant susceptibility artifact. There is a large disc extrusion at L4-5 which extends 8 mm posteriorly and 2 cm superiorly. This comp resses upon the descending left L4 nerve root. There is also resultant severe spinal canal stenosis at the L4 vertebral body level with the thecal sac measuring 4 mm AP. At the L4-5 disc space level, t he thecal sac measures 7 mm AP consistent with moderate spinal canal stenosis. The lumbar vertebral body heights are maintained. Moderate multilevel disc space narrowing and desicc ation most pronounced at L2-3, L3-4, L4-5 and L5-S1. Alignment grossly preserved. T2 bright lesion in the liver measuring 10 mm. Posterior paraspinal edema at the level of the L3 through L5 vertebral bodies. L1-2: No spinal canal, neural foraminal stenosis. L2-3: 2 mm disc protrusion. Mild facet and flavum hypertrophy. No spinal canal stenosis. Mild bilate ral neural foraminal stenosis. L3-4: Small disc protrusion. Unus-[id number] facet and flavum hypertrophy. No spinal canal stenosis. Mild bilateral neural foraminal stenosis. L4-5: Left paracentral disc extrusion as described extending 9 mm posteriorly. At the thecal sac jolynn ures 7 mm AP consistent with moderate spinal canal stenosis. Severe bilateral neural foraminal stenos is. L5-S1: 3 mm disc protrusion. Moderate facet and flavum hypertrophy. No spinal canal stenosis. Moderat e bilateral neural foraminal stenosis. IMPRESSION: Posterior fixation of the L4 and L5 vertebral bodies and associated laminectomy. Large disc extrusion at L4-5 which extends 8 mm posteriorly and 2 cm superiorly. This results in sev ere spinal canal stenosis at the L4 vertebral body level and moderate spinal canal stenosis at the L4 -5 disc space level. The disc extrusion compresses upon the descending L4 nerve root. Recommend neuro surgical consultation for further management. Severe neural foraminal stenosis L4-5. Moderate foraminal stenosis L5-S1. Mild neural foraminal sten osis L2-3 and L3-4. T2 bright lesion in the liver measuring 10 mm, appears to represent a cyst based upon CT from 024 Other findings as described.
--- NOTE | 2025-01-26 19:59 | DVHPN2 ---
Subjective having some back pain Reviewed: H&P, Labs Changes from previous H/P or p: No Changes Eyes: No Pain, No Vision change, No Conjunctivae inflammation, No Eyelid inflammation, No Other, No Redness ENT: No Ear pain, No Ear discharge, No Nose pain, No Nose discharge, No Nose congestion, No Mouth pain, No Mouth swelling, No Throat pain, No Throat swelling, No Other Cardiovascular: No Chest Pain, No Palpitations, No Orthopnea, No Paroxysmal Noc. Dyspnea, No Edema, No Lt Headedness, No Other Respiratory: No Cough, No Dry, No Shortness of breath, No SOB with excertion, No Wheezing, No Hemoptysis, No Pleuritic Pain, No Sputum, No Other Gastrointestinal: No Nausea, No Vomiting, No Abdominal Pain, No Diarrhea, No Constipation, No Melena, No Hematochezia, No Other Genitourinary: No Dysuria, No Frequency, No Incontinence, No Hematuria, No Retention, No Other Musculoskeletal: No other, No neck pain, No shoulder pain, No arm pain; back pain; No hand pain, No leg pain, No foot pain Skin: No Rash, No Lesions, No Jaundice, No Bruising, No Other Objective Vitals Vital Signs Date Time Temp Pulse Resp B/P (MAP) Pulse Ox O2 Delivery O2 Flow Rate FiO2 01/26/25 17:12 98.2 73 18 134/78 (96) 96 98.2 01/26/25 07:30 Room Air* 0 21 Intake/Output Intake and Output 01/26/25 07:00 Intake Total 300 ml Balance 300 ml Intake Oral 300 ml # Voids 4 General Appearance: Alert, Oriented X3 HEENT: Atraumatic Lungs: Clear to auscultation Cardiovascular: Regular rate, Normal S1, Normal S2 Abdomen: Normal bowel sounds Medications Current Medications Medications Dose Ordered Sig/Pedro Route Start Time Stop Time Status Last Admin Dose Admin Alprazolam 0.25 mg BIDPRN PRN PO 01/25/25 13:15 01/25/25 16:51 0.25 MG Cholestyramine Resin 4 gm BID PO 01/25/25 22:00 01/26/25 08:47 4 GM Docusate Sodium 100 mg BID PO 01/25/25 22:00 01/26/25 08:48 100 MG Hydrochlorothiazide 25 mg DAILY PO 01/26/25 10:00 01/26/25 08:47 25 MG Pantoprazole Sodium 40 mg DAILY PO 01/26/25 10:00 01/26/25 08:47 40 MG Tamsulosin HCl 0.4 mg DAILY PO 01/26/25 10:00 01/26/25 08:48 0.4 MG Patient Own Medication 1 cap DAILY PO 01/26/25 10:00 UNV Patient Own Medication 1 tab TID PO 01/25/25 14:00 UNV Patient Own Medication 100 mg DAILY PO 01/26/25 10:00 UNV Patient Own Medication 1 tab BID PO 01/25/25 22:00 Patient Own Medication 4 mg TID PO 01/25/25 14:00 Ondansetron HCl 4 mg Q4HP PRN IV 01/25/25 13:15 Docusate Sodium 100 mg BIDPRN PRN PO 01/25/25 13:15 Enoxaparin Sodium 40 mg DAILY SC 01/26/25 10:00 01/26/25 08:49 40 MG Nitroglycerin 0.4 mg Q5MINP PRN SL 01/25/25 13:15 Methocarbamol 1,000 mg QID PO 01/25/25 18:00 01/26/25 18:21 1,000 MG Dexamethasone Sodium Phosphate 4 mg Q8HR IV 01/25/25 14:00 01/26/25 14:40 4 MG Duloxetine HCl 60 mg DAILY PO 01/26/25 10:00 01/26/25 08:48 60 MG Gabapentin 600 mg TID PO 01/25/25 14:00 01/26/25 14:40 600 MG Losartan Potassium 100 mg DAILY PO 01/26/25 10:00 01/26/25 08:48 100 MG Acetaminophen/ Hydrocodone Bitart 1 tab Q4HP PRN PO 01/26/25 13:00 01/26/25 14:40 1 TAB Laboratory Results Laboratory Tests 01/26/25 05:05 Chemistry Test 01/26/25 05:05 Albumin 4.5 g/dL (3.2-4.8) Calcium Level 10.2 mg/dL (8.7-10.4) Total Protein 7.0 g/dL (5.7-8.2) LFT Test 01/26/25 05:05 Alanine Aminotransferase (ALT) 16 U/L (7-40) Alkaline Phosphatase 101 U/L (46-116) Aspartate Amino Transferase (AST) 13 U/L (13-40) Total Bilirubin 0.4 mg/dL (0.2-1.0) Urinalysis Test 01/25/25 10:27 Urine Color Light-yellow (Yellow) Urine Clarity Clear (Clear) Urine pH 5.0 (5.0-9.0) Urine Specific [place] 1.016 (1.001-1.035) Urine Protein Negative (Negative) Urine Ketones Negative (Negative) Urine Blood Trace /uL (Negative) H Urine Nitrite Negative (Negative) Urine Bilirubin Negative (Negative) Urine Urobilinogen Normal mg/dL (Negative) Urine Leukocyte Esterase Negative /uL (Negative) Urine RBC <1 /hpf (0 - 4) Urine Microscopic WBC 1 /HPF (0-5) Urine Squamous Epithelial Cells Few /hpf (<5) Urine Bacteria None seen /hpf (None Seen) Urine Glucose Normal mg/dL (Normal) Assessment/Plan Assessment/Plan acute intractable low back pain with bowel and urine incontinence ct l spine post op changes otherwise unremarkable s/p recent l4-l5 spinal fusion surgery on 12/31/2024 ordered Dilaudid prn pain ordered gabapentin, Robaxin and dexamethasone for now Per ortho MRI lumbar spine chronic problems htn bradycardia fen/ppx diet hl scd lovenox Plan discussed with: Patient My Orders Orders - DENISE WEBBER MD Procedure Category Date Status Time * Plate Straightener CONS 01/26/25 Transmitted Consult Hydrocodone-Acet PHA 01/26/25 In Process 10/325mg Tab ([place] 13:00 Date of Service: Jan 26, 2025 Billing Provider: DENISE WEBBER MD Common Visit Codes: [id number] INP/OBS CARE(HIGH) DENISE WEBBER MD Jan 26, 2025 19:59
[2025-01-26] MEDS: CYCLOBENZAPRINE HCL 10 MG TAB PO SCH (23:31)
[2025-01-27] VITALS (7 sets, daily range): BP systolic 112–148; BP diastolic 76–98; PULSE 54–81; RESP 16–20; TEMP 97.6–98.2; O2SAT 95–99
== END 2025-01-27 19:30 | disposition short-term general hospital (02) | DRG 552 ==
LOC: ER 08:02 → OVERFLOW 13:10 → WEST WING 16:13
PROVIDERS: ADMIT Hospitalist; ATTEND Hospitalist
PROC: 05HB33Z Insertion of Infusion Device into Right Basilic Vein, Percutaneous Approach (ICD-10-PCS; principal; 2025-01-25)
PROC: B54MZZA Ultrasonography of Right Upper Extremity Veins, Guidance (ICD-10-PCS; 2025-01-25)
DX: M48.061 Spinal stenosis, lumbar region without neurogenic claudication (principal); I10 Essential (primary) hypertension; R32 Unspecified urinary incontinence; M48.07 Spinal stenosis, lumbosacral region; F17.210 Nicotine dependence, cigarettes, uncomplicated; Z90.49 Acquired absence of other specified parts of digestive tract; Z98.1 Arthrodesis status; Z90.710 Acquired absence of both cervix and uterus
CPT/HCPCS: 36415; 72131; 72148; 80053; 81001; 83690; 85025; 85610; 85652; 86141; G0378; J1100; J1885

== ENCOUNTER 2025-02-15 07:36 | Emergency (ER) | payer OTHER, MEDICAID ==
[~2025-02-15] VITALS: Ht 149.9 cm; Wt 70.9 kg
[~2025-02-15 07:36] MED LIST changes: +CIPR-173 PO; -HYD25TP PR; -VANC125C3 PO
--- NOTE | 2025-02-15 08:19 | ED.PDOC ---
Back pain HPI HPI Comments This is a 49 year old female presenting to the ED with chief complaint of back pain. Patient reports that she has continued to experience back pain after her surgery in [facility] on 01/26. Patient relays that she was then later seen at [facility] on 02/02 for drainage of fluid in her lower spine, being discharged on 02/04. Patient states that she had called her surgeon Dr. Van regarding her persistent pain and she was advised to go back to his surgical center in [facility] for further management, however, she has no transportation and is unable to drive down herself. Patient notes she has continued to take [place] and Gabapentin with no relief in pain noted. Below is patient's HPI from previous visit. 49 year old female with a Hx of HTN, Bradycardia, 3x Hernia repairs, an Appendectomy, Spondylosithesis and a L4-L5 spinal fusion surgery that was done at [facility] in [place] on the 08 of January presets to the ED for the c/c of Lumbar Back Pain. Pt states that he has been in immense pain post-op, to the point where she cannot control her Bowels. Pt states that her Surgery was done by Dr. Van from the [facility] in [place]. Pt notes on taking Hydrocodone and Gabapentin. No other associated Modifiers or symptoms at this time. Denies history of chronic steroid use or history of osteoporosis Denies history of cancer Denies fevers chills night sweats nausea vomiting unintentional weight loss Denies abdominal tearing pain Denies syncope Spoke with [facility] at 18:00 Dr. Chatterjee no spinal cord emergency revision at [facility] by Dr. Van will reach out to neurosrgeon Chief Complaint: Back Pain Time Seen by MD: 08:17 Primary Care Provider: DR ROCK Reviewed Notes: Nurses Notes, Medications, Allergies Allergies: Coded Allergies: NO KNOWN ALLERGIES (Unverified , 05/10/14) Home Meds Active Scripts Ciprofloxacin Hcl (Cipro) 500 Mg Tab, 500 MG PO BID for 7 Days, #14 TAB Prov:DENISE WEBBER MD 01/26/25 Cholestyramine (QUESTRAN POWDER) 4 Gm Pw, 4 GM PO BID for 14 Days, #28 POW Prov:STEVAN VERAS MD 10/02/24 Dicyclomine Hcl (BENTYL CAPSULE) 10 Mg Cp, 1 CAP PO TID, #90 CAP 11 Refills Prov:NICHO COELLO 01/05/24 Docusate Sodium (Colace) 100 Mg Cap, 1 CAP PO BID, #60 CAP Prov:STEVAN VERAS MD 10/28/23 Pantoprazole Sodium Sesquihydr (Protonix) 40 Mg Tab, 40 MG PO DAILY for 7 Days, #7 TAB Prov:CHANTAL STEWART MD 10/14/23 Reported Medications Hydrocodone-Acetaminophen (Hydrocodone Bitartrate/AC 10-325 mg) 1 Tab Tab, 1 TAB PO QID PRN for PAIN SCALE 7 THRU 10, TAB 09/25/24 Hctz (Hydrochlorothiazide) 25 Mg Tab, 25 MG PO DAILY, TAB 09/25/24 Losartan Potassium (Losartan Potassium) 100 Mg Tab, 100 MG PO DAILY for 30 Days, MG 09/25/24 Alprazolam (Alprazolam) 0.25 Mg Tab, 1 TAB PO BIDPRN PRN 08/07/24 Famotidine (Famotidine) 40 Mg Tab, 1 TAB PO QHSP PRN 08/07/24 Tamsulosin Hcl (Tamsulosin Hcl) 0.4 Mg Cap, 1 CAP PO DAILY 08/07/24 Duloxetine Hcl (Cymbalta) 60 Mg Cap, 1 CAP PO DAILY, #90 CAP 3 Refills 01/30/24 Sennosides-Docusate Sodium (Senokot S) 1 Tab Tab, 1 TAB PO BID, #30 TAB 10/14/23 Tizanidine Hydrochloride (Tizanidine Hcl) 4 Mg Tab, 4 MG PO TID, TAB 10/14/23 Gabapentin (Gabapentin) 600 Mg Tab, 1 TAB PO TID, #90 TAB 3 Refills 10/14/23 Information Source: Patient, Relative Mode of Arrival: Ambulatory Past Medical History PAST MEDICAL HISTORY: HTN Surgical History: Cholecystectomy, Hernia Repair, Hysterectomy, Tubal Ligation Surgical History (Other): Spinal fusion, other back surgery FANCY STITCHER History: Denies all FANCY STITCHER Hx, Other Family History Family History: Reviewed,noncontributory to illness Social History Smoker: Cigarettes Alcohol: Denies ETOH Use Drugs: Denies Drug Use Lives In: Home Constitutional: denies: chills, diaphoresis, fatigue, fever, malaise, sweats, weakness, others EENTM: denies: blurred vision, double vision, ear bleeding, ear discharge, ear drainage, ear pain, ear ringing, eye pain, eye redness, hearing loss, mouth pa in, mouth swelling, nasal discharge, nose bleeding, nose congestion, nose pain, photophobia, tearing, throat pain, throat swelling, voice changes, others Respiratory: denies: cough, hemoptysis, orthopnea, SOB at rest, shortness of breath, SOB with excertion, stridor, wheezing, others Cardiovascular: denies: chest pain, dizzy spells, diaphoresis, Dyspnea on exertion, edema, irregular heart beat, left arm pain, lightheadedness, palpitations, PND, syncope, others Gastrointestinal: denies: abdomen distended, abdominal pain, blood streaked bowels, constipated, diarrhea, dysphagia, difficulty swallowing, hematemesis, melena, nausea, poor appetite, poor fluid intake, rectal bleeding, rectal pain, vomiting, others Genitourinary: denies: abnormal vagina bleeding, burning, dyspareunia, dysuria, flank pain, frequency, hematuria, incontinence, pain, , vagina discharge, urgency, others Neurological: denies: dizziness, fainting, headache, left sided numbness, left sided weakness, numbness, paresthesia, pre-existing deficit, right sided numbness, right sided weakness, seizure, speech problems, tingling, tremors, weakness, others Musculoskeletal: reports: back pain; denies: gout, joint pain, joint swelling, muscle pain, muscle stiffness, neck pain, others Integumetry: denies: bruises, change in color, change in hair/nails, dryness, laceration, lesions, lumps, rash, wounds, others Allergic/Immunocompromised: denies: Difficulty Healing, Frequent Infections, Hives, Itching, others Hematologic/Lymphatic: denies: anemia, blood clots, easy bleeding, easy bruisi ng, swollen glands, others Endocrine: denies: excessive hunger, excessive sweating, excessive thirst, exce ssive urination, flushing, intolerance to cold, intolerance to heat, unexplained weight gain, unexplained weight loss, others Psychiatric: denies: anxiety, bipolar disorder, depression, hopeless, panic disorder, schizophrenia, sleepless, suicidal, others All Other Systems: Reviewed and Negative Physical Exam General Appearance: No Apparent Distress, Normal HEENT: Normal ENT Inspection, Pharynx Normal, TMs Normal Neck: Full Range of Motion, Non-Tender, Normal, Normal Inspection Respiratory: Chest Non-Tender, Lungs Clear, No Accessory Muscle Use, No Respiratory Distress, Normal Breath Sounds Cardiovascular: No Edema, No JVD, No Murmur, No Gallop, Normal Peripheral Pulses, Regular Rate/Rhythm Breast Exam: Deferred Gastrointestinal: No Organomegaly, Non Tender, No Pulsatile Mass, Normal Bowel Sounds, Soft Genitalia: Deferred Pelvic: Deferred Rectal: Deferred Extremities: No calf tenderness, Normal capillary refill, Normal inspection, Normal range of motion, Non-tender, No pedal edema Musculoskeletal : Location: Bilateral Extremity Location: Back (Localized TTP to mid lumbar spine) Apperance: Normal Neurologic: Alert, oracle manufacturing consultant II-XII nml as Tested, No Motor Deficits, Normal Affect, Normal Mood, No Sensory Deficits Cerebellar Function: Normal Reflexes: Normal Skin: Dry, Normal Color, Warm Lymphatic: No Adenopathy Was a procedure done? Was a procedure done?: No Back Pain Differential Dx Differential Diagnosis: Musculoskeletal Pain X-Ray, Labs, Meds, VS Vital Signs Date Time Temp Pulse Resp B/P (MAP) Pulse Ox O2 Delivery O2 Flow Rate FiO2 02/15/25 17:14 Room Air* 0 21 02/15/25 17:10 97.8 67 12 162/93 (116) 99 97.8 02/15/25 16:15 195/99 02/15/25 13:01 66 20 185/99 02/15/25 12:38 66 14 185/99 02/15/25 12:15 69 16 167/12 02/15/25 12:15 68 16 167/120 02/15/25 08:53 68 16 171/83 02/15/25 07:36 98.4 83 18 184/105 97 98.4 Lab Test 02/15/25 16:58 02/15/25 08:50 02/15/25 00:00 Range/Units SARS-CoV-2 Antigen (Rapid) Negative NEGATIVE White Blood Count 10.6 4.4-10.8 10^3/uL Red Blood Count 4.25 4.0-5.20 10^6/uL Hemoglobin 13.7 12.2-16.2 g/dL Hematocrit 41.1 36.0-46.0 % Mean Corpuscular Volume 96.8 80.0-100.0 fL Mean Corpuscular Hemoglobin 32.3 H 28.0-32.0 pg Mean Corpuscular Hemoglobin Concent 33.4 32.0-36.0 g/dL Red Cell Distribution Width 14.1 11.8-14.3 % Platelet Count 376 140-450 10^3/uL Mean Platelet Volume 7.3 6.9-10.8 fL Neutrophils (%) (Auto) 70.6 37.0-80.0 % Lymphocytes (%) (Auto) 23.8 10.0-50.0 % Monocytes (%) (Auto) 3.9 0.0-12.0 % Eosinophils (%) (Auto) 0.6 0.0-7.0 % Basophils (%) (Auto) 1.1 0.0-2.0 % Neutrophils # (Auto) 7.5 1.6-8.6 10 ^3/uL Lymphocytes # (Auto) 2.5 0.4-5.4 10 ^3/uL Monocytes # (Auto) 0.4 0-1.3 10 ^3/uL Eosinophils # (Auto) 0.1 0-0.8 10 ^3/uL Basophils # (Auto) 0.1 0-0.2 10 ^3/uL Nucleated Red Blood Cells 0.0 % Sodium Level 143 136-145 mmol/L Potassium Level 3.7 3.5-5.1 mmol/L Chloride Level 111 H 98-107 mmol/L Carbon Dioxide Level 23 20-31 mmol/L Anion Gap 9 5-15 Blood Urea Nitrogen 14 9-23 mg/dL Creatinine 0.56 0.550-1.02 mg/dL Glomerular Filtration Rate Calc 111 >90 mL/min BUN/Creatinine Ratio 25.0 H 10.0-20.0 Serum Glucose 108 H 74-106 mg/dL Calcium Level 9.2 8.7-10.4 mg/dL Total Bilirubin 0.3 0.2-1.0 mg/dL Aspartate Amino Transferase (AST) 13 13-40 U/L Alanine Aminotransferase (ALT) 14 7-40 U/L Alkaline Phosphatase 84 46-116 U/L Total Protein 6.8 5.7-8.2 g/dL Albumin 4.5 3.2-4.8 g/dL Urine Color Light-yellow Yellow Urine Clarity Clear Clear Urine pH 5.5 5.0-9.0 Urine Specific K[place] 1.020 1.001-1.035 Urine Protein Negative Negative Urine Ketones Negative Negative Urine Blood 1+ H Negative /uL Urine Nitrite Negative Negative Urine Bilirubin Negative Negative Urine Urobilinogen Normal Negative mg/dL Urine Leukocyte Esterase Negative Negative /uL Urine RBC 4 0 - 4 /hpf Urine Microscopic WBC 1 0-5 /HPF Urine Squamous Epithelial Cells Few <5 /hpf Urine Bacteria None seen None Seen /hpf Urine Mucus Few None Seen Urine Glucose Normal Normal mg/dL Current Medications Medications (Trade) Dose Ordered Sig/Pedro Route Start Time Stop Time Status Last Admin Hydromorphone HCl (Dilaudid Injection) 1 mg ONCE ONCE IM 02/15/25 08:30 02/15/25 08:31 DC 02/15/25 08:53 Hydromorphone HCl (Dilaudid Injection) 1 mg ONCE ONCE IM 02/15/25 12:00 02/15/25 12:01 DC 02/15/25 12:15 Hydromorphone HCl (Dilaudid Injection) 1 mg ONCE ONCE IM 02/15/25 12:30 02/15/25 12:31 DC 02/15/25 13:01 Lorazepam (Ativan Inj) 0.5 mg ONCE ONCE IV 02/15/25 16:15 02/15/25 16:16 DC 02/15/25 16:15 Fentanyl Citrate 100 mcg ONCE ONCE IV 02/15/25 16:15 02/15/25 16:16 DC 02/15/25 16:15 [place] [id number] Ph: [phone] DIAGNOSTIC IMAGING Diagnostic Imaging Report : [id number] Signed PATIENT: BEVERLY SPARKSCCT: [id number] UNIT: [id number] : 1975 LOC: [facility] ROOM / BED: [address] [place] [address] AGE / SEX: 49 / F ADM STATUS: ADM IN SERVICE [id number] ORDERING PHYSICIAN: SILVIO BRADEN NP PROCEDURE(s): MSL - LUMBAR SPINE WO CONTRAST REASON: evaluation for post laminectomy syndrome ORDER NUMBER(s): [id number], ACCESSION NUMBER(s): [id number] PROCEDURE: MRI LUMBAR SPINE WO CONTRAST Indication: evaluation for post laminectomy syndrome COMPARISON: None TECHNIQUE: Multiplanar multisequence images of the the lumbar spine are obtained. FINDINGS: For the purpose of this examination, there are 5 lumbar vertebral body types counting from the lumbosacral junction. There is posterior fixation of the L4 and L5 vertebral bodies with resultant susceptibility artifact. There is a large disc extrusion at L4-5 which extends 8 mm posteriorly and 2 cm superiorly. This compresses upon the descending left L4 nerve root. There is also resultant severe spinal canal stenosis at the L4 vertebral body level with the thecal sac measuring 4 mm AP. At the L4-5 disc space level, the thecal sac measures 7 mm AP consistent with moderate spinal canal stenosis. The lumbar vertebral body heights are maintained. Moderate multilevel disc space narrowing and desiccation most pronounced at L2-3, L3-4, L4-5 and L5-S1. Alignment grossly preserved. T2 bright lesion in the liver measuring 10 mm. Posterior paraspinal edema at the level of the L3 through L5 vertebral bodies. L1-2: No spinal canal, neural foraminal stenosis. L2-3: 2 mm disc protrusion. Mild facet and flavum hypertrophy. No spinal canal stenosis. Mild bilateral neural foraminal stenosis. L3-4: Small disc protrusion. [id number]-[id number] facet and flavum hypertrophy. No spinal canal stenosis. Mild bilateral neural foraminal stenosis. L4-5: Left paracentral disc extrusion as described extending 9 mm posteriorly. At the thecal sac measures 7 mm AP consistent with moderate spinal canal stenosis. Severe bilateral neural foraminal stenosis. L5-S1: 3 mm disc protrusion. Moderate facet and flavum hypertrophy. No spinal canal stenosis. Moderate bilateral neural foraminal stenosis. IMPRESSION: Posterior fixation of the L4 and L5 vertebral bodies and associated laminectomy. Large disc extrusion at L4-5 which extends 8 mm posteriorly and 2 cm superiorly. This results in severe spinal canal stenosis at the L4 vertebral body level and moderate spinal canal stenosis at the L4-5 disc space level. The disc extrusion compresses upon the descending L4 nerve root. Recommend neurosurgical consultation for further management. Severe neural foraminal stenosis L4-5. Moderate foraminal stenosis L5-S1. Mild neural foraminal stenosis L2-3 and L3-4. T2 bright lesion in the liver measuring 10 mm, appears to represent a cyst based upon CT from 06/01/2024 Other findings as described. ATED BY: DERRELL DALY MD DICTATED DATE/TIME: 01/26/251854 SIGNED BY: DERRELL DALY MD SIGNED DATE/TIME: 01/26/251854 CC: X-Ray, Labs, Meds, VS Comment This is a 49 year old female presenting to the ED with chief complaint of back pain. Patient reports that she has continued to experience back pain after her surgery in [facility] on 01/26. Patient arrives alert and oriented, ABC's intact, afebrile, vital signs stable, saturating well in room air CBC was ordered to exclude anemia, blood loss, or infection. BMP was ordered to exclude electrolyte abnormalities, renal failure, dehydration, hyperglycemia Urinalysis was ordered to rule out UTI or hematuria. MRI from 01/26 IMPRESSION: Posterior fixation of the L4 and L5 vertebral bodies and associated laminectomy. Large disc extrusion at L4-5 which extends 8 mm posteriorly and 2 cm superiorly. This results in severe spinal canal stenosis at the L4 vertebral body level and moderate spinal canal stenosis at the L4-5 disc space level. The disc extrusion compresses upon the descending L4 nerve root. Recommend neurosurgical consultation for further management. Severe neural foraminal stenosis L4-5. Moderate foraminal stenosis L5-S1. Mild neural foraminal stenosis L2-3 and L3-4. T2 bright lesion in the liver measuring 10 mm, appears to represent a cyst based upon CT from 06/01/2024 Patients work up was remarkable for intractable lower back pain In the ER the patient received Dilaudid x1 with no adverse reactions. The patient's workup reveals that the patient needs pain control for the above medical conditions. Patient verbalized understanding of the above and is awaiting further evaluation by the admitting service. Spoke w/ hospitalist at 15:52 and informed patient needs higher level of care Will attempt to call [facility] for transfer Spoke with [facility] at 18:00 Dr. Sen smart spinal cord emergency revision at [facility] by Dr. Van will reach out to neurosrgeon Pending call back [facility] contacted back and per neurosurgeon Dr. Van patient does not need to be transferred and to control patients pain in ER and have patient f/u with him upon discharge Patients pain controlled during ER visit and patient instructed to f/u with Dr. Van upon discharge as soon as possible Patient verbalized understanding and agreeable with current plan of care Patient was instructed to return back to ER immediately if symptoms worsen Time of 1ST Reevaluation: 09:15 Reevaluation 1ST: Unchanged Time of 2ND Reevaluation: 09:32 Reevaluation 2ND: Unchanged Patient Education/Counseling: Diagnosis, Treatment Family Education/Counseling: Diagnosis, Treatment SEPSIS Sepsis Screen Date sepsis recognized/suspect: Feb 15, 2025 Time Sepsis recognized/suspect: 735 Recent Procedure: No On Antibiotic Therapy: No Respiratory Rate >20: No Heart Rate >90: No Temp<36 C (96.8 F) or >38.3 C: No SBP <90 or MAP <65 mmHG: No New Acute Mental Status Change: No Is the patient on CPAP, BIPAP,: No Physician Orders Heplock Iv (02/15/25 ) Vital Signs Date Time Temp Pulse Resp B/P (MAP) Pulse Ox O2 Delivery O2 Flow Rate FiO2 02/15/25 17:14 Room Air* 0 21 02/15/25 17:10 97.8 67 12 162/93 (116) 99 97.8 02/15/25 16:15 195/99 02/15/25 13:01 66 20 185/99 02/15/25 12:38 66 14 185/99 02/15/25 12:15 69 16 167/12 02/15/25 12:15 68 16 167/120 02/15/25 08:53 68 16 171/83 02/15/25 07:36 98.4 83 18 184/105 97 98.4 Laboratory Tests Test 02/15/25 08:50 White Blood Count 10.6 10^3/uL (4.4-10.8) Medications Medications Dose Ordered Sig/Pedro Route Start Time Stop Time Status Last Admin Dose Admin Fentanyl Citrate 100 mcg ONCE ONCE IV 02/15/25 16:15 02/15/25 16:16 DC 02/15/25 16:15 Hydromorphone HCl 1 mg ONCE ONCE IM 02/15/25 08:30 02/15/25 08:31 DC 02/15/25 08:53 Hydromorphone HCl 1 mg ONCE ONCE IM 02/15/25 12:00 02/15/25 12:01 DC 02/15/25 12:15 Hydromorphone HCl 1 mg ONCE ONCE IM 02/15/25 12:30 02/15/25 12:31 DC 02/15/25 13:01 Lorazepam 0.5 mg ONCE ONCE IV 02/15/25 16:15 02/15/25 16:16 DC 02/15/25 16:15 Departure 1 Departure Time of Disposition: 09:32 Impression: Primary Impression: Intractable low back pain Disposition: ADMITTED INPATIENT Condition: Serious Critical Care Note Critical Care Time?: No Stability Stability form required: No Heart Score Heart Score: Heart Score Response (Comments) Value History N/A 0 EKG N/A 0 Age N/A 0 Risk Factors N/A 0 Troponin N/A 0 Total 0 I personally scribed for LIA HENRIQUEZ NP ([email or web address]) on 02/15/25 at 08:19. Electronically submitted by Pb Kiran ([email or web address]). I personally scribed for LIA HENRIQUEZ NP ([email or web address]) on 02/15/25 at 08:25. Electronically submitted by Pb Kiran ([email or web address]). I personally scribed for LIA HENRIQUEZ NP ([email or web address]) on 02/15/25 at 09:41. Electronically submitted by Pb Kiran ([email or web address]). LIA HENRIQUEZ NP Feb 15, 2025 08:19 ROBERT YOUSSEF Feb 15, 2025 19:21
[2025-02-15] MEDS: HYDROmorphone HCL 2 MG/ML VL/or syr IM ONE ×3 (08:53→13:01)
[2025-02-15 09:02] LABS: Hematocrit 41.1 % (36.0-46.0); Hemoglobin 13.7 g/dL (12.2-16.2); Mean Corpuscular Hemoglobin 32.3 pg (28.0-32.0); Mean Corpuscular Volume 96.8 fL (80.0-100.0); Nucleated Red Blood Cells % 0.0 %
[2025-02-15 09:16] LABS: Alanine Aminotransferase 14 U/L (7-40); Albumin 4.5 g/dL (3.2-4.8); Alkaline Phosphatase 84 U/L (46-116); Anion Gap 9 (5-15); BUN/Creatinine Ratio 25.0 (10.0-20.0); Blood Urea Nitrogen 14 mg/dL (9-23); Calcium 9.2 mg/dL (8.7-10.4); Carbon Dioxide 23 mmol/L (20-31); Potassium 3.7 mmol/L (3.5-5.1); Sodium 143 mmol/L (136-145); Total Protein 6.8 g/dL (5.7-8.2)
[2025-02-15 09:17] LABS: Bilirubin, Total 0.3 mg/dL (0.2-1.0); Chloride 111 mmol/L (98-107); Glucose 108 mg/dL (74-106)
[2025-02-15 11:11] LABS: Urine Protein, UAD Negative (Negative)
[2025-02-15] MEDS: LORazepam 2MG/ML-1ML VIAL IV ONE (16:15)
[2025-02-15] MEDS: fentaNYL CITRATE 100 MCG/2 ML VL IV ONE (16:15)
[2025-02-15 17:10] VITALS: BP 162/93; PULSE 67; RESP 12; TEMP 97.8; O2SAT 99
[2025-02-15 17:44] LABS: COVID19 ANTIGEN SOFIA FIA NEGATIVE (NEGATIVE)
== END 2025-02-15 22:51 | disposition left against medical advice (07) ==
LOC: ER 07:36
DX: M54.50 Low back pain, unspecified (principal); I10 Essential (primary) hypertension; F17.210 Nicotine dependence, cigarettes, uncomplicated; Z79.899 Other long term (current) drug therapy; Z90.49 Acquired absence of other specified parts of digestive tract; Z90.710 Acquired absence of both cervix and uterus; Z98.890 Other specified postprocedural states
CPT/HCPCS: 36415; 80053; 81001; 85025; 87426; 96372; 96374; 96375; 99285; J1171; J2060; J3010

== ENCOUNTER 2025-03-09 12:33 | Inpatient (IN) | payer OTHER, MEDICAID ==
[~2025-03-09] VITALS: Ht 149.9 cm; Wt 76.0 kg
--- NOTE | 2025-03-09 12:59 | ECG ---
[facility] Test Date: 2025-03-09 Test Time: 12:41:40 Pat Name: ARBEN SPARKS Department: [facility] ED Patient ID: [facility]-[id number] Room: Gender: F Piano Tuner: SAIGE : 1975 Requested By: CHANTAL STEWART Order Number: [id number] Reading MD: Rocky Meneses Measurements Intervals [place] Rate: 86 P: 25 NJ: 170 QRS: -5 QRSD: 106 T: 11 QT: 382 QTc: 457 Interpretive Statements Sinus rhythm Borderline T abnormalities, anterior leads Electronically Signed On 03-09-2025 18:50:09 PDT by Rocky Meneses Please click the below link to view image of tracing.
[2025-03-09 13:23] LABS: Potassium 3.9 mmol/L (3.5-5.1); Sodium 143 mmol/L (136-145)
[2025-03-09 13:24] LABS: Anion Gap 7 (5-15); Carbon Dioxide 25 mmol/L (20-31); Hematocrit 43.2 % (36.0-46.0); Hemoglobin 14.9 g/dL (12.2-16.2); Mean Corpuscular Hemoglobin 32.4 pg (28.0-32.0); Mean Corpuscular Volume 93.6 fL (80.0-100.0); Nucleated Red Blood Cells % 0.1 %
[2025-03-09 13:25] LABS: Calcium 9.3 mg/dL (8.7-10.4)
[2025-03-09 13:27] LABS: Chloride 111 mmol/L (98-107)
[2025-03-09 13:29] LABS: BUN/Creatinine Ratio 26.0 (10.0-20.0); Blood Urea Nitrogen 19 mg/dL (9-23)
[2025-03-09 13:34] LABS: Glucose 159 mg/dL (74-106)
--- NOTE | 2025-03-09 13:56 | ECG ---
[facility] Test Date: 2025-03-09 Test Time: 13:55:39 Pat Name: ARBEN SPARKS Department: ED Room: Gender: F Bisque Placer: michael : 1975 Requested By: CHANTAL STEWART Order Number: [id number] Reading MD: Rocky Meneses Measurements Intervals [place] Rate: 77 P: 34 DE: 163 QRS: 8 QRSD: 104 T: 6 QT: 375 QTc: 425 Interpretive Statements Sinus rhythm Low voltage, precordial leads Borderline abnrm T, anterolateral leads Baseline wander in lead(s) III Electronically Signed On 03-09-2025 18:50:20 PDT by Rocky Meneses Please click the below link to view image of tracing.
[2025-03-09] MEDS: HYDROcodone-ACET 10/325MG TAB PO ONE (14:54)
--- NOTE | 2025-03-09 15:27 | ED.PDOC ---
History of Present Illness HPI Comments 49 y/o obese F, with a history of bradycardia, chronic back pain, HTN, cholecystectomy, and tobacco cigarette use, presents with chest pain, that radiates to her bilateral shoulders, and headache and HTN. She reports being referred to ED from her sales planner after being seen, yesterday, due to being found hypertensive and papilledema during yesterday's visit. Denial of any shortness of breath, dizziness, lightheadedness, or further associated symptoms. Chief Complaint: Chest Pain Time Seen by MD: 12:45 Primary Care Provider: DR ROCK Reviewed Notes: Nurses Notes, Medications, Allergies Allergies: Coded Allergies: NO KNOWN ALLERGIES (Unverified , 05/10/14) Home Meds Active Scripts Ciprofloxacin Hcl (Cipro) 500 Mg Tab, 500 MG PO BID for 7 Days, #14 TAB Prov:DENISE WEBBER MD 01/26/25 Cholestyramine (QUESTRAN POWDER) 4 Gm Pw, 4 GM PO BID for 14 Days, #28 POW Prov:STEVAN VERAS MD 10/02/24 Dicyclomine Hcl (BENTYL CAPSULE) 10 Mg Cp, 1 CAP PO TID, #90 CAP 11 Refills Prov:NICHO COELLO CASE SPECIALIST 01/05/24 Docusate Sodium (Colace) 100 Mg Cap, 1 CAP PO BID, #60 CAP Prov:STEVAN VERAS MD 10/28/23 Pantoprazole Sodium Sesquihydr (Protonix) 40 Mg Tab, 40 MG PO DAILY for 7 Days, #7 TAB Prov:CHANTAL STEWART MD 10/14/23 Reported Medications Hydrocodone-Acetaminophen (Hydrocodone Bitartrate/AC 10-325 mg) 1 Tab Tab, 1 TAB PO QID PRN for PAIN SCALE 7 THRU 10, TAB 09/25/24 Hctz (Hydrochlorothiazide) 25 Mg Tab, 25 MG PO DAILY, TAB 09/25/24 Losartan Potassium (Losartan Potassium) 100 Mg Tab, 100 MG PO DAILY for 30 Days, MG 09/25/24 Alprazolam (Alprazolam) 0.25 Mg Tab, 1 TAB PO BIDPRN PRN 08/07/24 Famotidine (Famotidine) 40 Mg Tab, 1 TAB PO QHSP PRN 08/07/24 Tamsulosin Hcl (Tamsulosin Hcl) 0.4 Mg Cap, 1 CAP PO DAILY 08/07/24 Duloxetine Hcl (Cymbalta) 60 Mg Cap, 1 CAP PO DAILY, #90 CAP 3 Refills 01/30/24 Sennosides-Docusate Sodium (Senokot S) 1 Tab Tab, 1 TAB PO BID, #30 TAB 10/14/23 Tizanidine Hydrochloride (Tizanidine Hcl) 4 Mg Tab, 4 MG PO TID, TAB 10/14/23 Gabapentin (Gabapentin) 600 Mg Tab, 1 TAB PO TID, #90 TAB 3 Refills 10/14/23 Information Source: Patient Mode of Arrival: Ambulatory Past Medical History PAST MEDICAL HISTORY: HTN Past Medical History (Other): bradycardia chronic back pain Surgical History: Cholecystectomy, Hernia Repair, Hysterectomy, 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, Other Family History Family History: Reviewed,noncontributory to illness Social History Smoker: Cigarettes Alcohol: Denies ETOH Use Drugs: Denies Drug Use Lives In: Home All Other Systems: Reviewed and Negative (Comprehensive systems review obtained and negative except for what is stated in the HPI.) Physical Exam General Appearance: Moderate Distress HEENT: Normal ENT Inspection, Pharynx Normal, TMs Normal Neck: Full Range of Motion, Non-Tender, Normal, Normal Inspection Respiratory: Chest Non-Tender, Lungs Clear, No Accessory Muscle Use, No Respiratory Distress, Normal Breath Sounds Cardiovascular: No Edema, No JVD, No Murmur, No Gallop, Normal Peripheral Pulses, Regular Rate/Rhythm Breast Exam: Deferred Gastrointestinal: No Organomegaly, Non Tender, No Pulsatile Mass, Normal Bowel Sounds, Soft Genitalia: Deferred Pelvic: Deferred Rectal: Deferred Extremities: No calf tenderness, Normal capillary refill, Normal inspection, Normal range of motion, Non-tender, No pedal edema Musculoskeletal : Apperance: Normal Neurologic: Alert, pet training instructor II-XII nml as Tested, No Motor Deficits, Normal Affect, Normal Mood, No Sensory Deficits Cerebellar Function: NOT DONE Reflexes: NOT DONE Skin: Dry, Normal Color, Warm Peripheral Pulses: 3+ Radial (R), 3+ Radial (L) Lymphatic: No Adenopathy Was a procedure done? Was a procedure done?: No EKG EKG #1: Pulse Rate (adult): 86 [place]: Normal Cardiac Rhythm: NSR Block: None Hypertrophy: None ST: Normal EKG #2: Pulse Rate (adult): 77 [place]: Normal Cardiac Rhythm: NSR Block: None Hypertrophy: None ST: Normal Differential Dx Considerations may include: NC, PE, ACS, URI, PNA, anxiety, angina, gastritis, hypertensive emergency, migraines, cluster headache, among others X-Ray, Labs, Meds, VS Vital Signs Date Time Temp Pulse Resp B/P (MAP) Pulse Ox O2 Delivery O2 Flow Rate FiO2 03/09/25 15:26 77 03/09/25 14:12 98.1 86 18 165/95 (118) 98 98.1 03/09/25 14:12 86 03/09/25 13:55 77 03/09/25 12:41 86 03/09/25 12:37 98.0 83 15 184/98 99 98.0 Lab Test 03/09/25 13:47 03/09/25 13:07 Range/Units Troponin I High Sensitivity 3 L 5 </=34 ng/L White Blood Count 7.2 4.4-10.8 10^3/uL Red Blood Count 4.61 4.0-5.20 10^6/uL Hemoglobin 14.9 12.2-16.2 g/dL Hematocrit 43.2 36.0-46.0 % Mean Corpuscular Volume 93.6 80.0-100.0 fL Mean Corpuscular Hemoglobin 32.4 H 28.0-32.0 pg Mean Corpuscular Hemoglobin Concent 34.6 32.0-36.0 g/dL Red Cell Distribution Width 13.2 11.8-14.3 % Platelet Count 311 140-450 10^3/uL Mean Platelet Volume 7.4 6.9-10.8 fL Neutrophils (%) (Auto) 52.5 37.0-80.0 % Lymphocytes (%) (Auto) 39.4 10.0-50.0 % Monocytes (%) (Auto) 5.6 0.0-12.0 % Eosinophils (%) (Auto) 1.5 0.0-7.0 % Basophils (%) (Auto) 1.0 0.0-2.0 % Neutrophils # (Auto) 3.8 1.6-8.6 10 ^3/uL Lymphocytes # (Auto) 2.8 0.4-5.4 10 ^3/uL Monocytes # (Auto) 0.4 0-1.3 10 ^3/uL Eosinophils # (Auto) 0.1 0-0.8 10 ^3/uL Basophils # (Auto) 0.1 0-0.2 10 ^3/uL Nucleated Red Blood Cells 0.1 % Sodium Level 143 136-145 mmol/L Potassium Level 3.9 3.5-5.1 mmol/L Chloride Level 111 H 98-107 mmol/L Carbon Dioxide Level 25 20-31 mmol/L Anion Gap 7 5-15 Blood Urea Nitrogen 19 9-23 mg/dL Creatinine 0.73 0.550-1.02 mg/dL Glomerular Filtration Rate Calc 100 >90 mL/min BUN/Creatinine Ratio 26.0 H 10.0-20.0 Serum Glucose 159 H 74-106 mg/dL Calcium Level 9.3 8.7-10.4 mg/dL Current Medications Medications (Trade) Dose Ordered Sig/Pedro Route Start Time Stop Time Status Last Admin Acetaminophen/ Hydrocodone Bitart ([place] 10/325MG Tab) 1 tab ONCE ONCE PO 03/09/25 14:45 03/09/25 14:46 DC 03/09/25 14:54 Patient alert. Complaining of chest pain. Vitals stable. Answering questions. She was just at sales planner this morning. She was given aspirin. Was given nitro. Continues to have pain. Was given morphine. EKG reviewed does show old changes. Blood sugar elevated. She has risk factors for coronary artery disease. Echocardiogram. Stress test. She will follow up with sales planner after she has been cleared for cardiology. Reviewed her previous visit. Explained to the patient. Continue monitoring. Time of 1ST Reevaluation: 13:15 Reevaluation 1ST: Unchanged Patient Education/Counseling: Diagnosis, Treatment, Need For Follow Up Family Education/Counseling: No Family Present SEPSIS Sepsis Screen Date sepsis recognized/suspect: Mar 09, 2025 Time Sepsis recognized/suspect: 1242 Recent Procedure: No On Antibiotic Therapy: No Respiratory Rate >20: No Heart Rate >90: No Temp<36 C (96.8 F) or >38.3 C: No SBP <90 or MAP <65 mmHG: No New Acute Mental Status Change: No Is the patient on CPAP, BIPAP,: No Physician Orders Urinalysis (03/09/25 12:35) Electrocardigram (03/09/25 15:57) Vital Signs Date Time Temp Pulse Resp B/P (MAP) Pulse Ox O2 Delivery O2 Flow Rate FiO2 03/09/25 15:26 77 03/09/25 14:12 98.1 86 18 165/95 (118) 98 98.1 03/09/25 14:12 86 03/09/25 13:55 77 03/09/25 12:41 86 03/09/25 12:37 98.0 83 15 184/98 99 98.0 Laboratory Tests Test 03/09/25 13:07 White Blood Count 7.2 10^3/uL (4.4-10.8) Medications Medications Dose Ordered Sig/Pedro Route Start Time Stop Time Status Last Admin Dose Admin Acetaminophen/ Hydrocodone Bitart 1 tab ONCE ONCE PO 03/09/25 14:45 03/09/25 14:46 DC 03/09/25 14:54 Departure 1 Departure Time of Disposition: 15:56 Impression: Primary Impression: Chest pain of unknown etiology Disposition: ADMITTED INPATIENT Admit to: Med Surg Condition: Guarded Critical Care Note Critical Care Time?: No Stability Stability form required: No Heart Score Heart Score: Heart Score Response (Comments) Value History Slightly Suspicious 0 EKG Normal 0 Age 45-64 1 Risk Factors >3 or Hx ASHD 2 Troponin Normal limit 0 Total 3 I personally scribed for CHANTAL STEWART MD ([email or web address]) on 03/09/25 at 15:26. Electronically submitted by Kishan Goodwin ([email or web address]). CHANTAL STEWART MD Mar 09, 2025 15:26
[2025-03-09] MEDS: ONDANSETRON HCL 4 MG/2 ML VIAL IV ONE (16:32)
[2025-03-09] MEDS: NITROGLYCERIN 0.4 MG SL TAB SL ONE (16:32)
[2025-03-09] MEDS: MORPHINE SULFATE 4 MG/ML SYR/VIAL IV ONE (16:33)
[2025-03-09 18:20] VITALS: PULSE 75; RESP 14; O2SAT 99
[2025-03-09] MEDS: LORazepam 2MG/ML-1ML VIAL IV ONE (18:20)
[2025-03-09 19:45] VITALS: RESP 16; O2SAT 99
[2025-03-09] MEDS: MORPHINE SULFATE INJ 2 MG/ml SYRG IV PRN (22:12)
--- NOTE | 2025-03-09 22:43 | DVH ---
CT BRAIN WITHOUT CONTRAST HISTORY: headache, hypertension TECHNIQUE: Axial scans were obtained from the skull base through the vertex without contrast. Sagitta l and coronal reformats were generated. One or more of the following radiation dose reduction techniq ues were used for this examination: automated exposure control, adjustment of the mA and/or kV accord ing to patient size, use of iterative reconstruction technique. COMPARISON: None FINDINGS: Streak artifact somewhat limits evaluation of the skull base and posterior fossa. No acute intracrani al hemorrhage or evidence of large vessel territorial infarction identified at this time. No midline shift. The basilar cisterns are patent. Ackerman-white differentiation appears relatively preserved. C avum septum pellucidum is noted. The visualized paranasal sinuses and mastoid air cells are clear. No grossly displaced calvarial abno rmalities identified. IMPRESSION: No acute intracranial findings as visualized.
[2025-03-09] MEDS: ONDANSETRON HCL 4 MG/2 ML VIAL ONE (23:27)
[2025-03-09] MEDS: ONDANSETRON HCL 4 MG/2 ML VIAL IM ONE (23:29)
[2025-03-10] VITALS (8 sets, daily range): BP systolic 98–147; BP diastolic 69–82; PULSE 54–84; RESP 16–20; TEMP 97.3–97.9; O2SAT 93–98
--- NOTE | 2025-03-10 00:34 | DVHHP2 ---
History of Present Illness Reason for Visit: High blood pressure History of Present Illness 49-year-old female presents for evaluation of high blood pressure. Patient was seen by Ophthalmology today and was advised to present to the emergency department to rule out papilledema and get an MRI of the orbits. She states her blood pressure was also elevated in the 200s. Reports occasional chest pressure with headache and visual disturbances. Patient reports being compliant with her antihypertensive medications. Past Medical History Hypertension Past Surgical History Hernia repair, hysterectomy, cholecystectomy Family History Noncontributory Smoke: <1 pack per day ALCOHOL: none Drugs: None Lives: with Family Review of Systems Review of Systems Review of systems are currently negative otherwise addressed in HPI. Allergies: Coded Allergies: NO KNOWN ALLERGIES (Unverified , 05/10/14) Medications Current Medications Medications Dose Ordered Sig/Pedro Route Start Time Stop Time Status Last Admin Dose Admin Morphine Sulfate 2 mg [id number] PRN IV 03/09/25 21:45 03/09/25 22:12 2 MG Exam Vital Signs Vital Signs Date Time Temp Pulse Resp B/P (MAP) Pulse Ox O2 Delivery O2 Flow Rate FiO2 03/10/25 00:00 69 03/09/25 23:40 19 161/82 (108) 98 03/09/25 19:45 Room Air* 0 21 03/09/25 18:20 97.7 97.7 Exam Gen: 49-year-old female in mild distress Skin: Warm, dry, normal color and texture, no rash. HEENT: Normocephalic atraumatic, mucous membranes moist and pink. Neck: Cervical and supraclavicular nodes normal without enlargement, trachea is midline, thyroid gland is normal without masses. Pulmonary: Clear to auscultation and percussion bilaterally. Cardiac: Regular rate and rhythm. No murmur Abdomen: Soft, nontender, nondistended, bowel sounds present all 4 quadrants, no guarding, no rigidity, no organomegaly. Extremities: No cyanosis, clubbing, no edema Neuro: Cranial nerves II through XII grossly intact, normal affect and speech, no focal motor deficits. Labs/Xrays ORDERING PHYSICIAN: REHANA RIDDLE MD PROCEDURE(s): HWOCT - HEAD WITHOUT CONTRAST REASON: headache, hypertension ORDER NUMBER(s): [id number], ACCESSION NUMBER(s): [id number] CT BRAIN WITHOUT CONTRAST HISTORY: headache, hypertension TECHNIQUE: Axial scans were obtained from the skull base through the vertex without contrast. Sagittal and coronal reformats were generated. One or more of the following radiation dose reduction techniques were used for this examination: automated exposure control, adjustment of the mA and/or kV according to patient size, use of iterative reconstruction technique. COMPARISON: None FINDINGS: Streak artifact somewhat limits evaluation of the skull base and posterior fossa. No acute intracranial hemorrhage or evidence of large vessel territorial infarction identified at this time. No midline shift. The basilar cisterns are patent. Ackerman-white differentiation appears relatively preserved. Cavum septum pellucidum is noted. The visualized paranasal sinuses and mastoid air cells are clear. No grossly displaced calvarial abnormalities identified. IMPRESSION: No acute intracranial findings as visualized. Labs Test 03/09/25 13:47 03/09/25 13:07 Range/Units Troponin I High Sensitivity 3 L </=34 ng/L White Blood Count 7.2 4.4-10.8 10^3/uL Red Blood Count 4.61 4.0-5.20 10^6/uL Hemoglobin 14.9 12.2-16.2 g/dL Hematocrit 43.2 36.0-46.0 % Mean Corpuscular Volume 93.6 80.0-100.0 fL Mean Corpuscular Hemoglobin 32.4 H 28.0-32.0 pg Mean Corpuscular Hemoglobin Concent 34.6 32.0-36.0 g/dL Red Cell Distribution Width 13.2 11.8-14.3 % Platelet Count 311 140-450 10^3/uL Mean Platelet Volume 7.4 6.9-10.8 fL Neutrophils (%) (Auto) 52.5 37.0-80.0 % Lymphocytes (%) (Auto) 39.4 10.0-50.0 % Monocytes (%) (Auto) 5.6 0.0-12.0 % Eosinophils (%) (Auto) 1.5 0.0-7.0 % Basophils (%) (Auto) 1.0 0.0-2.0 % Neutrophils # (Auto) 3.8 1.6-8.6 10 ^3/uL Lymphocytes # (Auto) 2.8 0.4-5.4 10 ^3/uL Monocytes # (Auto) 0.4 0-1.3 10 ^3/uL Eosinophils # (Auto) 0.1 0-0.8 10 ^3/uL Basophils # (Auto) 0.1 0-0.2 10 ^3/uL Nucleated Red Blood Cells 0.1 % Sodium Level 143 136-145 mmol/L Potassium Level 3.9 3.5-5.1 mmol/L Chloride Level 111 H 98-107 mmol/L Carbon Dioxide Level 25 20-31 mmol/L Anion Gap 7 5-15 Blood Urea Nitrogen 19 9-23 mg/dL Creatinine 0.73 0.550-1.02 mg/dL Glomerular Filtration Rate Calc 100 >90 mL/min BUN/Creatinine Ratio 26.0 H 10.0-20.0 Serum Glucose 159 H 74-106 mg/dL Calcium Level 9.3 8.7-10.4 mg/dL SEPSIS Sepsis Screen Date sepsis recognized/suspect: Mar 09, 2025 Time Sepsis recognized/suspect: 2339 Recent Procedure: Yes On Antibiotic Therapy: No Respiratory Rate >20: No Heart Rate >90: No Temp<36 C (96.8 F) or >38.3 C: No SBP <90 or MAP <65 mmHG: No New Acute Mental Status Change: No Is the patient on CPAP, BIPAP,: No Physician Orders Morphine Sulfate Injection (03/09/25 21:45) Head Without Contrast (03/09/25 22:05) Admit (03/09/25 23:54) Urinalysis (03/10/25 00:16) Clonidine Hcl Tablet (Catapres Tablet) (03/10/25 00:30) Aspirin Tablet (03/10/25 10:00) Troponin-I Hs (03/10/25 00:16) Echo 2d Mode Cardiac Dop (03/10/25 00:16) Losartan Tablet (Cozaar Tablet) (03/10/25 10:00) Gabapentin Capsule (Neurontin Capsule) (03/10/25 06:00) Hydrochlorothiazide Tablet (Hydrochlorot (03/10/25 10:00) Mri Orbits W Out Contrast (03/10/25 00:16) Basic Metabolic Panel (03/10/25 04:00) Hemoglobin A1c (03/10/25 00:16) Thyroid Stimulating Hormone (03/10/25 00:16) Atorvastatin (Lipitor) (03/10/25 22:00) Hydrocodone-Acet 5/325mg Tab ([place] /32 (03/10/25 00:30) Ondansetron Hcl (Zofran) (03/10/25 00:30) Cardiac Diet-2gna,Lofat,Lochol (03/10/25 Breakfast) Condition: Stable (03/10/25 00:16) Acetaminophen Tablet (Tylenol Tablet) (03/10/25 00:30) Bedrest With Bathroom Privileg (03/10/25 00:16) Vital Signs Date Time Temp Pulse Resp B/P (MAP) Pulse Ox O2 Delivery O2 Flow Rate FiO2 03/10/25 00:00 69 03/09/25 23:40 74 19 161/82 (108) 98 03/09/25 23:28 83 16 163/86 03/09/25 22:12 85 18 169/106 03/09/25 21:55 71 18 164/86 (112) 98 03/09/25 20:00 72 03/09/25 19:45 16 99 Room Air* 0 21 03/09/25 19:00 82 16 144/98 (113) 98 03/09/25 18:45 69 14 167/85 (112) 97 03/09/25 18:30 74 14 160/87 (111) 98 03/09/25 18:20 75 14 99 Room Air* 0 21 03/09/25 18:20 97.7 75 14 201/106 (137) 99 97.7 03/09/25 17:53 98.9 74 20 174/102 (126) 98 98.9 03/09/25 16:33 80 20 174/96 03/09/25 16:32 174/96 Laboratory Tests Test 03/09/25 13:07 White Blood Count 7.2 10^3/uL (4.4-10.8) Medications Medications Dose Ordered Sig/Pedro Route Start Time Stop Time Status Last Admin Dose Admin Acetaminophen/ Hydrocodone Bitart 1 tab ONCE ONCE PO 03/09/25 14:45 03/09/25 14:46 DC 03/09/25 14:54 1 TAB Aspirin 325 mg ONCE ONCE PO 03/09/25 16:00 03/09/25 16:01 DC 03/09/25 16:32 325 MG Lorazepam 1 mg ONCE ONCE IV 03/09/25 17:45 03/09/25 17:46 DC 03/09/25 18:20 1 MG Morphine Sulfate 2 mg [id number] PRN IV 03/09/25 21:45 03/09/25 22:12 2 MG Morphine Sulfate 4 mg ONCE ONCE IV 03/09/25 15:45 03/09/25 15:46 DC 03/09/25 16:33 4 MG Nitroglycerin 0.4 mg ONCE ONCE SL 03/09/25 16:00 03/09/25 16:01 DC 03/09/25 16:32 0.4 MG Ondansetron HCl 4 mg ONCE ONCE IM 03/09/25 23:15 03/09/25 23:16 DC 03/09/25 23:29 4 MG Ondansetron HCl 4 mg ONCE ONCE IV 03/09/25 15:45 03/09/25 15:46 DC 03/09/25 16:32 4 MG Assessment/Plan Assessment/Plan Assessment Hypertensive crisis Rule out papilledema Plan Admit the patient to [facility] to the hospitalist Echocardiogram pending MRI of the orbits pending Chest x-ray pending P.r.n. antihypertensives Resume home medications Continue treatment per orders. Plan discussed with: Patient My Orders Orders - HAROLDO FRANCO Procedure Category Date Status Time Admit ADMIT 03/09/25 Transmitted 23:54 Urinalysis LAB 03/10/25 Transmitted 00:16 Clonidine Hcl Tablet PHA 03/10/25 Transmitted (Catapres Tablet) 00:30 Aspirin Tablet PHA 03/10/25 Transmitted 10:00 Troponin-I Hs LAB 03/10/25 Transmitted 00:16 Echo 2d Mode Cardiac US 03/10/25 Transmitted DOP 00:16 Losartan Tablet PHA 03/10/25 Transmitted (Cozaar Tablet) 10:00 Gabapentin Capsule PHA 03/10/25 Transmitted (Neurontin Capsule) 06:00 Hydrochlorothiazide PHA 03/10/25 Transmitted Tablet (Hydrochlorot 10:00 Mri Orbits W Out MRI 03/10/25 Transmitted Contrast 00:16 Basic Metabolic Panel LAB 03/10/25 Transmitted 04:00 Hemoglobin A1c LAB 03/10/25 Transmitted 00:16 Thyroid Stimulating LAB 03/10/25 Transmitted Hormone 00:16 Atorvastatin (Lipitor) PHA 03/10/25 Transmitted 22:00 Hydrocodone-Acet PHA 03/10/25 Transmitted 5/325mg Tab ([place] 00:30 Ondansetron Hcl PHA 03/10/25 Transmitted (Zofran) 00:30 Cardiac DIET 03/10/25 Transmitted Diet-2gna,Lofat,Lochol Breakfast Condition: Stable JUAN LUIS 03/10/25 Transmitted 00:16 Acetaminophen Tablet PHA 03/10/25 Transmitted (Tylenol Tablet) 00:30 Bedrest With Bathroom JUAN LUIS 03/10/25 Transmitted Privileg 00:16 Date of Service: Mar 09, 2025 Billing Provider: HAROLDO FRANCO Common Visit Codes: [id number] INP/OBS CARE (HIGH) HAROLDO FRANCO Mar 10, 2025 00:34
[2025-03-10] MEDS: GABAPENTIN 300 MG CAP PO SCH (01:34)
[2025-03-10] MEDS: ONDANSETRON HCL 4 MG/2 ML VIAL IV PRN (01:36)
[2025-03-10] MEDS: HYDROcodone-ACET 5/325MG TAB PO PRN (01:37)
[2025-03-10] MEDS: ACETAMINOPHEN 325 MG TAB PO PRN (01:37)
[2025-03-10 02:05] LABS: Potassium 4.2 mmol/L (3.5-5.1); Sodium 141 mmol/L (136-145)
[2025-03-10 02:06] LABS: Anion Gap 7 (5-15); Carbon Dioxide 20 mmol/L (20-31)
[2025-03-10 02:07] LABS: Calcium 9.2 mg/dL (8.7-10.4)
[2025-03-10 02:11] LABS: BUN/Creatinine Ratio 37.3 (10.0-20.0); Blood Urea Nitrogen 19 mg/dL (9-23); Chloride 114 mmol/L (98-107); Glucose 102 mg/dL (74-106)
[2025-03-10] MEDS: HYDROcodone-ACET 7.5/325MG TAB PO ONE (03:30)
[2025-03-10 07:31] LABS: Urine Protein, UAD TRACE (Negative)
[2025-03-10] MEDS: GADOTERATE MEG 10 MMOL/20ml INJ (0.5MMOL/ml) IV ONE (08:11)
[2025-03-10] MEDS: LOSARTAN POTASSIUM 50 MG TAB PO SCH (09:09)
[2025-03-10] MEDS: hydroCHLOROthiazide 25 MG TAB PO SCH (09:09)
--- NOTE | 2025-03-10 09:28 | DVH ---
MRI of Brain and Orbits Clinical History: Rule out papilledema Technique: T1 sagittal, T2 axial, FLAIR axial and post gadolinium axial images were obtained. Thin section post contrast axial and coronal fat-sat T1 images of the orbits were also obtained. Diffusion-weighted lisette ges were also obtained. 20 cc of Guerbet Dotarem contrast from a prefilled syringe was administered intravenously. Comparison: CT HEAD WITHOUT CONTRAST on DOS: 03/09/25 Findings: The bilateral orbital globes appear within normal limits.The optic nerve/sheath complexes are symmetr ic in size and demonstrate no pathologic enhancement. The extraocular muscles also appear symmetric i n size. There is no evidence of intraconal or extraconal mass. The optic chiasm appears within normal limits without extrinsic mass effect. The pituitary stalk is midline. There is no evidence of a sell ar or suprasellar lesion. There is no evidence of papilledema. There is no restriced diffusion.The real and white matter demonstrate appropriate signal. There is no pathologic focus of enhancement. There is no evidence of hemorrhage, mass, mass effect or midline sh ift. There is no hydrocephalus or extra-axial fluid collection. The visualized intracranial vasculatu re demonstrates normal flow-voids. The craniocervical junction is within normal limits. The calvarium demonstrates normal marrow signal. The paranasal sinuses and mastoid air cells are clear. Scattered punctate areas of increased intensity are seen throughout both cerebral hemispheres on FLAIR imaging. Impression: 1. Scattered punctate areas of increased intensity are seen throughout both cerebral hemispheres on t he FLAIR imaging, this could represent microvascular areas of ischemia however this could also repres ent microvascular changes as seen in migraines as well as demyelinating disease, clinical correlation recommended.
[2025-03-10] MEDS: ALPRAZolam 0.5 MG TAB PO PRN (14:30)
--- NOTE | 2025-03-10 15:54 | DVHPN2 ---
Subjective + overnight events noted. Changes from previous H/P or p: No Changes Objective Vitals Vital Signs Date Time Temp Pulse Resp B/P (MAP) Pulse Ox O2 Delivery O2 Flow Rate FiO2 03/10/25 13:30 97.8 54 18 98/69 (79) 98 97.8 03/10/25 07:06 Nasal Cannula* 2 28 Medications Current Medications Medications Dose Ordered Sig/Pedro Route Start Time Stop Time Status Last Admin Dose Admin Morphine Sulfate 2 mg [id number] PRN IV 03/09/25 21:45 03/10/25 05:10 2 MG Clonidine HCl 0.2 mg Q6HP PRN PO 03/10/25 00:30 03/10/25 04:14 0.2 MG Aspirin 81 mg DAILY PO 03/10/25 10:00 03/10/25 09:09 81 MG Losartan Potassium 100 mg DAILY PO 03/10/25 10:00 03/10/25 09:09 100 MG Gabapentin 600 mg TID PO 03/10/25 06:00 03/10/25 14:00 600 MG Hydrochlorothiazide 25 mg DAILY PO 03/10/25 10:00 03/10/25 09:09 25 MG Atorvastatin Calcium 10 mg HS PO 03/10/25 22:00 Ondansetron HCl 4 mg Q4HP PRN IV 03/10/25 00:30 03/10/25 05:08 4 MG Acetaminophen 650 mg Q6HP PRN PO 03/10/25 00:30 03/10/25 01:37 650 MG Alprazolam 0.5 mg BID PRN PO 03/10/25 13:45 03/10/25 14:30 0.5 MG Acetaminophen/ Hydrocodone Bitart 1 tab Q4HP PRN PO 03/10/25 14:30 UNV Morphine Sulfate 2 mg Q4HPRN PRN IV 03/10/25 14:30 UNV Laboratory Results Laboratory Tests 03/09/25 13:07 03/10/25 01:27 Chemistry Test 03/10/25 01:27 Calcium Level 9.2 mg/dL (8.7-10.4) HgA1c, TSH Test 03/10/25 01:27 Hemoglobin A1c 5.5 % A1C (<5.7) Thyroid Stimulating Hormone (TSH) 2.04 uIU/mL (0.55-4.78) Urinalysis Test 03/10/25 07:21 Urine Color Yellow (Yellow) Urine Clarity Clear (Clear) Urine pH 5.5 (5.0-9.0) Urine Specific [place] 1.043 (1.001-1.035) Urine Protein Trace (Negative) H Urine Ketones Negative (Negative) Urine Blood Negative /uL (Negative) Urine Nitrite Negative (Negative) Urine Bilirubin Negative (Negative) Urine Urobilinogen Normal mg/dL (Negative) Urine Leukocyte Esterase Negative /uL (Negative) Urine RBC 1 /hpf (0 - 4) Urine Microscopic WBC 1 /HPF (0-5) Urine Squamous Epithelial Cells Few /hpf (<5) Urine Bacteria Few /hpf (None Seen) H Urine Mucus Few (None Seen) Urine Glucose Normal mg/dL (Normal) Assessment/Plan Assessment/Plan 49-year-old female with a known history of hypertension, peripheral neuropathy, chronic back pain currently on narcotics who initially was seen in Ophthalmology Department as an outpatient for the eye pressure found to have possible papilledema because of uncontrolled high blood pressure was sent to ER. Patient initially said since head CT was negative MRI is pending. 1. Bilateral eye pressure rule out papilledema rule out acute CVA 2. Hypertensive emergency 3. Peripheral neuropathy 4. Chronic back pain with a recent history of two back surgeries 5. Chronic narcotic dependency -MRI brain noncontrast, neurology consultation. Plan discussed with: Other (Patient's bedside RN.) My Orders Orders - JACQUELINE PERDOMO MD Procedure Category Date Status Time Alprazolam Tablet PHA 03/10/25 In Process (Xanax Tablet) 13:45 * Neurology Consult CONS 03/10/25 Transmitted 14:26 Hydrocodone-Acet PHA 03/10/25 Logged 10/325mg Tab ([place] 14:30 Morphine Sulfate PHA 03/10/25 Logged Injection 14:30 Date of Service: Mar 09, 2025 Billing Provider: JACQUELINE PERDOMO MD Common Visit Codes: [id number] INP/OBS CARE(MOD) JAQCUELINE PERDOMO MD Mar 10, 2025 15:53
--- NOTE | 2025-03-10 15:55 | DVHPN2 ---
Subjective + overnight events noted. Patient is requesting [place] double dose. As she has a chronic back pain Changes from previous H/P or p: No Changes Objective Vitals Vital Signs Date Time Temp Pulse Resp B/P (MAP) Pulse Ox O2 Delivery O2 Flow Rate FiO2 03/10/25 13:30 97.8 54 18 98/69 (79) 98 97.8 03/10/25 07:06 Nasal Cannula* 2 28 Exam HEENT pupils are reactive Neck is supple CV is S1-S2 regular rate and rhythm Respiratory diminished breath sounds bases GI positive bowel sound Extremity no edema [employer] no motor deficit. Medications Current Medications Medications Dose Ordered Sig/Pedro Route Start Time Stop Time Status Last Admin Dose Admin Morphine Sulfate 2 mg [id number] PRN IV 03/09/25 21:45 03/10/25 05:10 2 MG Clonidine HCl 0.2 mg Q6HP PRN PO 03/10/25 00:30 03/10/25 04:14 0.2 MG Aspirin 81 mg DAILY PO 03/10/25 10:00 03/10/25 09:09 81 MG Losartan Potassium 100 mg DAILY PO 03/10/25 10:00 03/10/25 09:09 100 MG Gabapentin 600 mg TID PO 03/10/25 06:00 03/10/25 14:00 600 MG Hydrochlorothiazide 25 mg DAILY PO 03/10/25 10:00 03/10/25 09:09 25 MG Atorvastatin Calcium 10 mg HS PO 03/10/25 22:00 Ondansetron HCl 4 mg Q4HP PRN IV 03/10/25 00:30 03/10/25 05:08 4 MG Acetaminophen 650 mg Q6HP PRN PO 03/10/25 00:30 03/10/25 01:37 650 MG Alprazolam 0.5 mg BID PRN PO 03/10/25 13:45 03/10/25 14:30 0.5 MG Acetaminophen/ Hydrocodone Bitart 1 tab Q4HP PRN PO 03/10/25 14:30 UNV Morphine Sulfate 2 mg Q4HPRN PRN IV 03/10/25 14:30 UNV Laboratory Results Laboratory Tests 03/09/25 13:07 03/10/25 01:27 Chemistry Test 03/10/25 01:27 Calcium Level 9.2 mg/dL (8.7-10.4) HgA1c, TSH Test 03/10/25 01:27 Hemoglobin A1c 5.5 % A1C (<5.7) Thyroid Stimulating Hormone (TSH) 2.04 uIU/mL (0.55-4.78) Urinalysis Test 03/10/25 07:21 Urine Color Yellow (Yellow) Urine Clarity Clear (Clear) Urine pH 5.5 (5.0-9.0) Urine Specific [place] 1.043 (1.001-1.035) Urine Protein Trace (Negative) H Urine Ketones Negative (Negative) Urine Blood Negative /uL (Negative) Urine Nitrite Negative (Negative) Urine Bilirubin Negative (Negative) Urine Urobilinogen Normal mg/dL (Negative) Urine Leukocyte Esterase Negative /uL (Negative) Urine RBC 1 /hpf (0 - 4) Urine Microscopic WBC 1 /HPF (0-5) Urine Squamous Epithelial Cells Few /hpf (<5) Urine Bacteria Few /hpf (None Seen) H Urine Mucus Few (None Seen) Urine Glucose Normal mg/dL (Normal) Assessment/Plan Assessment/Plan 49-year-old female with a known history of hypertension, peripheral neuropathy, chronic back pain currently on narcotics who initially was seen in Ophthalmology Department as an outpatient for the eye pressure found to have possible papilledema because of uncontrolled high blood pressure was sent to ER. Patient initially said since head CT was negative MRI is pending. 1. Bilateral eye pressure rule out papilledema rule out acute CVA 2. Hypertensive emergency 3. Peripheral neuropathy 4. Chronic back pain with a recent history of two back surgeries 5. Chronic narcotic dependency -MRI brain noncontrast showed scattered is area of ischemia suspected migraine/demyelinating disease, neurology consultation. Plan discussed with: Patient My Orders Orders - JACQUELINE PERDOMO MD Procedure Category Date Status Time Alprazolam Tablet PHA 03/10/25 In Process (Xanax Tablet) 13:45 * Neurology Consult CONS 03/10/25 Transmitted 14:26 Hydrocodone-Acet PHA 03/10/25 Logged 10/325mg Tab ([place] 14:30 Morphine Sulfate PHA 03/10/25 Logged Injection 14:30 Date of Service: Mar 10, 2025 Billing Provider: JACQUELINE PERDOMO MD Common Visit Codes: [id number] INP/OBS CARE(MOD) JACQUELINE PERDOMO MD Mar 10, 2025 15:55
[2025-03-10] MEDS: MORPHINE SULFATE INJ 2 MG/ml SYRG IV PRN (16:11)
--- NOTE | 2025-03-10 20:41 | DVHINCON2 ---
Date of service: Mar 10, [address] Mckeon Reason for Consultation Increase pressure behind the eye History of Present Illness is a 49 years old right-handed female with a history of hypertension, obesity, bradycardia, chronic low back pain, she came to the [facility] on 03/09/2025 with a chief company of headache, possible papillary edema. At this time, she is alert and fully oriented, she provided the following history She was urged by her recreation establishment manager to come to the hospital for further further evaluation because of possible papilledema, and remarkably elevated blood pressure, 198/101, recreation establishment manager recommend MRI head, MRI orbital, and lumbar puncture to rule out intracranial hypertension For about a month, she has had constant intense headache that prevent her from falling asleep, at times she wake up in the night with intense headache, the headaches worse when she is flat in the bed. For about one month of time, she has had blurry vision She denies a history of headache She has had chronic intense low back pain since 2008 after she sustained a work injury, the pain radiates to bilateral foot tops with a left-sided more affected, she has numbness in whole legs all the time, she has had lumbar spine surgery. She sees Dr. Landeros, a local neurologist CBC, 03/09/2025: Unremarkable BMP 03/10/2025: Unremarkable HGB A1c, 03/10/2025: 5.5 TSH, 03/10/2025: 2.04 CT head, 03/09/2025: No acute intracranial findings as visualized. MR head, orbits, 03/10/2025: Scattered punctate areas of increased intensity are seen throughout both cerebral hemispheres on the FLAIR imaging, this could repre sent microvascular areas of ischemia however this could also represent microvascular changes as seen in migraines as well as demyelinating disease, clinical correlation recommended MRI lumbar spine, 02/05/2025: Posterior fixation of the L4 and L5 vertebral bodies and associated laminectomy. Large disc extrusion at L4-5 which extends 8 mm posteriorly and 2 cm superiorly. This results in severe spinal canal stenosis at the L4 vertebral body level and moderate spinal canal stenosis at the L4-5 disc space level. The disc extrusion compresses upon the descending L4 nerve root. Recommend neurosurgical consultation for further management. Severe neural foraminal stenosis L4-5. Moderate foraminal stenosis L5-S1. Mild neural foraminal stenosis L2-3 and L3-4. T2 bright lesion in the liver measuring 10 mm, appears to represent a cyst based upon CT from 06/01/2024. Other findings as described. Past Medical History Hypertension, bradycardia, chronic back pain, obesity Past Surgical History Cholecystectomy, hernia repair, hysterectomy, oophorectomy, colostomy, colostomy bag reversal, lumbar spine surgery Family History: Diabetes mellitus G8 MOTHER G8 FATHER FH: cancer Hypertension G8 MOTHER G8 FATHER Family History Hypertension, diabetes, heart disease, both parents had brain aneurysm, cancer Social History She was tobacco smoke, but denies a history of drug/alcohol abuse Allergies: Coded Allergies: NO KNOWN ALLERGIES (Unverified , 05/10/14) Home Meds Active Scripts Ciprofloxacin Hcl (Cipro) 500 Mg Tab, 500 MG PO BID for 7 Days, #14 TAB Prov:DENISE WEBBER MD 01/26/25 Cholestyramine (QUESTRAN POWDER) 4 Gm Pw, 4 GM PO BID for 14 Days, #28 POW Prov:STEVAN VERAS MD 10/02/24 Dicyclomine Hcl (BENTYL CAPSULE) 10 Mg Cp, 1 CAP PO TID, #90 CAP 11 Refills Prov:NICHO COELLO PERSONAL CHEF 01/05/24 Docusate Sodium (Colace) 100 Mg Cap, 1 CAP PO BID, #60 CAP Prov:STEVAN VERAS MD 10/28/23 Pantoprazole Sodium Sesquihydr (Protonix) 40 Mg Tab, 40 MG PO DAILY for 7 Days, #7 TAB Prov:CHANTAL STEWART MD 10/14/23 Reported Medications Hydrocodone-Acetaminophen (Hydrocodone Bitartrate/AC 10-325 mg) 1 Tab Tab, 1 TAB PO QID PRN for PAIN SCALE 7 THRU 10, TAB 09/25/24 Hctz (Hydrochlorothiazide) 25 Mg Tab, 25 MG PO DAILY, TAB 09/25/24 Losartan Potassium (Losartan Potassium) 100 Mg Tab, 100 MG PO DAILY for 30 Days, MG 09/25/24 Alprazolam (Alprazolam) 0.25 Mg Tab, 1 TAB PO BIDPRN PRN 08/07/24 Famotidine (Famotidine) 40 Mg Tab, 1 TAB PO QHSP PRN 08/07/24 Tamsulosin Hcl (Tamsulosin Hcl) 0.4 Mg Cap, 1 CAP PO DAILY 08/07/24 Duloxetine Hcl (Cymbalta) 60 Mg Cap, 1 CAP PO DAILY, #90 CAP 3 Refills 01/30/24 Sennosides-Docusate Sodium (Senokot S) 1 Tab Tab, 1 TAB PO BID, #30 TAB 10/14/23 Tizanidine Hydrochloride (Tizanidine Hcl) 4 Mg Tab, 4 MG PO TID, TAB 10/14/23 Gabapentin (Gabapentin) 600 Mg Tab, 1 TAB PO TID, #90 TAB 3 Refills 10/14/23 Current Medications Current Medications Medications (Trade) Dose Ordered Sig/Pedro Route PRN Reason Start Time Stop Time Status Last Admin Morphine Sulfate 2 mg [id number] PRN IV FOR CHEST PAIN 03/09/25 21:45 03/10/25 05:10 Clonidine HCl (Catapres Tablet) 0.2 mg Q6HP PRN PO SBP>160 03/10/25 00:30 03/10/25 04:14 Aspirin 81 mg DAILY PO 03/10/25 10:00 03/10/25 09:09 Losartan Potassium (Cozaar Tablet) 100 mg DAILY PO 03/10/25 10:00 03/10/25 09:09 Gabapentin (Neurontin Capsule) 600 mg TID PO 03/10/25 06:00 03/10/25 14:00 Hydrochlorothiazide (hydroCHLOROthiazide TABLET) 25 mg DAILY PO 03/10/25 10:00 03/10/25 09:09 Atorvastatin Calcium (Lipitor) 10 mg HS PO 03/10/25 22:00 Acetaminophen/ Hydrocodone Bitart ([place] 5/325MG Tab) 1 tab Q4HP PRN PO MODERATE PAIN (4-6 PAIN SCALE) 03/10/25 00:30 03/10/25 14:30 DC 03/10/25 10:17 Ondansetron HCl (Zofran) 4 mg Q4HP PRN IV NAUSEA / VOMITING 03/10/25 00:30 03/10/25 05:08 Acetaminophen (Tylenol Tablet) 650 mg Q6HP PRN PO PAIN SCALE 1-3 OR TEMP>100.4 03/10/25 00:30 03/10/25 01:37 Alprazolam (Xanax Tablet) 0.5 mg BID PRN PO ANXIETY 03/10/25 13:45 03/10/25 14:30 Acetaminophen/ Hydrocodone Bitart ([place] 10/325MG Tab) 1 tab Q4HP PRN PO MODERATE PAIN (4-6 PAIN SCALE) 03/10/25 14:30 Morphine Sulfate 2 mg Q4HPRN PRN IV SEVERE PAIN (7-10 PAIN SCALE) 03/10/25 14:30 03/10/25 16:11 Review of Systems As above, the other systems are negative Vital Signs Vital Signs Date Time Temp Pulse Resp B/P (MAP) Pulse Ox O2 Delivery O2 Flow Rate FiO2 03/10/25 16:48 97.9 70 16 113/73 (86) 95 97.9 03/10/25 07:06 Nasal Cannula* 2 28 Physical Exam GENERAL EXAM: General: the patient is well developed and nourished. No acute distress. HEENT: Normocephalic, neck is supple, no carotid bruits. No mass. RESPIRATORY: Normal respiratory effort with symmetrical lung expansion. Lungs clear to auscultation. CARDIOVASCULAR: Regular rate and rhythm with no murmurs. S1, S2. ABDOMEN: Soft, nontender, normal bowel sound Diffuse tenderness to palpation in the back NEUROLOGICAL: MENTAL STATUS: Awake and alert. Oriented to person, place, time and general circumstances. Able to give personal history. The patient is aware of recent events SPEECH, LANGUAGE, HIGHER CORTICAL FUNCTION: no aphasia or dysathria. CRANIAL NERVES: #2: Intact visual canas to confrontation. . #3,4,6: Pupils are equal, round and reactive. EOMs full and conjugate. Mild bilateral gaze evoked nystagmus. #5: Diminished pinprick and light touch in both phases. Mandibular strength intact. #7: Facial muscles symmetrical and strength intact. #8: Hearing grossly normal to voice. #9,10: Uvula and soft palate rise in the midline. Swallow and voice are normal. #11: Trapezius and sternomastoid strength intact bilaterally. #12: Tongue midline. No fasciculations or atrophy. SENSATION: Sensation to touch and pinprick is remarkably diminished in the extremities, chest and stomach MOTOR: Normal tone in the upper and lower extremity. Normal muscle bulk. No fasciculations. No abnormal movements or posturing. Muscle strength of the major groups in the upper extremities is 5/5. Muscle strength of the major groups in the lower extremities is 5/5. REFLEXES: Deep tendon reflexes are symmetrically diminished in lower extremities. No pathological reflexes. CEREBELLAR/COORDINATION: Finger to nose is normal bilaterally. GAIT/STATION: deferred. Labs/Diagnostic Data Labs Test 03/10/25 07:21 03/10/25 01:27 03/09/25 13:07 Range/Units Urine Color Yellow Yellow Urine Clarity Clear Clear Urine pH 5.5 5.0-9.0 Urine Specific [place] 1.043 H 1.001-1.035 Urine Protein Trace H Negative Urine Ketones Negative Negative Urine Blood Negative Negative /uL Urine Nitrite Negative Negative Urine Bilirubin Negative Negative Urine Urobilinogen Normal Negative mg/dL Urine Leukocyte Esterase Negative Negative /uL Urine RBC 1 0 - 4 /hpf Urine Microscopic WBC 1 0-5 /HPF Urine Squamous Epithelial Cells Few <5 /hpf Urine Bacteria Few H None Seen /hpf Urine Mucus Few None Seen Urine Glucose Normal Normal mg/dL Sodium Level 141 136-145 mmol/L Potassium Level 4.2 3.5-5.1 mmol/L Chloride Level 114 H 98-107 mmol/L Carbon Dioxide Level 20 20-31 mmol/L Anion Gap 7 5-15 Blood Urea Nitrogen 19 9-23 mg/dL Creatinine 0.51 #L 0.550-1.02 mg/dL Glomerular Filtration Rate Calc 114 >90 mL/min BUN/Creatinine Ratio 37.3 H 10.0-20.0 Serum Glucose 102 74-106 mg/dL Hemoglobin A1c 5.5 <5.7 % A1C Calcium Level 9.2 8.7-10.4 mg/dL Troponin I High Sensitivity 4 </=34 ng/L Thyroid Stimulating Hormone (TSH) 2.04 0.55-4.78 uIU/mL White Blood Count 7.2 4.4-10.8 10^3/uL Red Blood Count 4.61 4.0-5.20 10^6/uL Hemoglobin 14.9 12.2-16.2 g/dL Hematocrit 43.2 36.0-46.0 % Mean Corpuscular Volume 93.6 80.0-100.0 fL Mean Corpuscular Hemoglobin 32.4 H 28.0-32.0 pg Mean Corpuscular Hemoglobin Concent 34.6 32.0-36.0 g/dL Red Cell Distribution Width 13.2 11.8-14.3 % Platelet Count 311 140-450 10^3/uL Mean Platelet Volume 7.4 6.9-10.8 fL Neutrophils (%) (Auto) 52.5 37.0-80.0 % Lymphocytes (%) (Auto) 39.4 10.0-50.0 % Monocytes (%) (Auto) 5.6 0.0-12.0 % Eosinophils (%) (Auto) 1.5 0.0-7.0 % Basophils (%) (Auto) 1.0 0.0-2.0 % Neutrophils # (Auto) 3.8 1.6-8.6 10 ^3/uL Lymphocytes # (Auto) 2.8 0.4-5.4 10 ^3/uL Monocytes # (Auto) 0.4 0-1.3 10 ^3/uL Eosinophils # (Auto) 0.1 0-0.8 10 ^3/uL Basophils # (Auto) 0.1 0-0.2 10 ^3/uL Nucleated Red Blood Cells 0.1 % Assessment New onset daily headache with a suspected papilledema, obesity, to rule out idiopathic intracranial hypertension Chronic low back pain Severe diminished pinprick and light touch affecting almost whole-body, ? Polyneuropathy Significant family history of brain aneurysm Plan/Recommendation Monitoring Supportive treatment MRA brain scan Lumbar puncture for evidence pseudotumor cerebri Gabapentin 600 mg t.i.d. [place] 10/325 mg q.4 hours p.r.n. Brief course of IV fluid, dexamethasone 10 mg IV daily, Reglan 15 mg t.i.d. More recommendation per clinical course This medical document was created using an electronic medical record system with [employer] dictation system. Although this document has been carefully reviewed, there may still be some phonetic and typographical errors. These areas are purely typographical due to imperfections of the software programs, and do not reflect any compromise in the patient's medical care. Plan discussed with: Patient, Other MARIUM PEREZ MD Mar 10, 2025 20:41
[2025-03-10] MEDS: ATORVASTATIN 20 MG TAB PO SCH (21:56)
[2025-03-10] MEDS ORDERED: LORazepam 2MG/ML-1ML VIAL IV PRN (22:30)
[2025-03-10] MEDS: HYDROcodone-ACET 10/325MG TAB PO PRN (23:39)
[2025-03-11] VITALS (14 sets, daily range): BP systolic 118–146; BP diastolic 58–94; PULSE 60–96; RESP 16–19; TEMP 97.3–98.4; O2SAT 86–97
[2025-03-11] MEDS: SODIUM CHLORIDE 0.9% 1,000 ML IV SCH (02:56)
[2025-03-11] MEDS: METOCLOPRAMIDE HCL 10 MG TAB PO SCH (06:02)
--- NOTE | 2025-03-11 08:37 | DVH ---
PROCEDURE: MRI MRA ANGIO HEAD BRAIN INDICATION: Brain aneurysm Exam Date: 03/11/2025 07:50 AM COMPARISON: CT HEAD WITHOUT CONTRAST on DOS: 03/09/25 TECHNIQUE: MRA head without intravenous contrast. 3D image postprocessing was performed on a dedicated workstation and images were used for interpretat ion and reporting. FINDINGS: MRA head: There is preserved enhancement within the bilateral distal internal carotid arteries. There is prese rved enhancement within the anterior and middle cerebral arteries. There is preserved enhancement wi thin the vertebral arteries, basilar artery, cerebellar arteries and posterior cerebral arteries. Th ere is no evidence of hemodynamically significant intracranial stenosis, proximal occlusion or aneury sm. No abnormal venous signal is seen. IMPRESSION: No evidence of hemodynamically significant intracranial stenosis, proximal occlusion or aneurysm.
[2025-03-11] MEDS: fentaNYL CITRATE 100 MCG/2 ML VL ONE (10:15)
[2025-03-11] MEDS: MIDAZOLAM HCL 2MG/2ML 2ml VIAL (1mg/ml) ONE (10:17)
--- NOTE | 2025-03-11 11:01 | DVH ---
LUMBAR PUNCTURE HISTORY: EVALUATE FOR EVIDENCE OF PSEUDO TUMOR CEREBRI PROCEDURE/FINDINGS: Informed consent was obtained. Risks versus benefits were discussed. Patient unde rstands and consents to the procedure. An initial timeout was conducted correctly identifying the pat ient with the desired procedure of diagnostic lumbar puncture. Lab values were reviewed and found to be acceptable. Once a suitable site for lumbar puncture was determined fluoroscopically, the overlying skin was prep ped and draped in the usual sterile fashion and anesthetized with 1% lidocaine. The thecal sac was pu nctured at the L4 level using a 20 gauge spinal needle with expression of clear cerebral spinal fluid . CSF was collected into 4 test tubes and submitted to the laboratory for analysis. Opening pressure cmH2O. Closing pressure cmH2O. The patient tolerated the procedure well without any immediate com plications and transferred to ambulatory for routine recovery. IMPRESSION: 1. I was only able to aspirate 1 cc of spinal fluid due to patient motion. Opening closing pressures were 0.
[2025-03-11 14:28] LABS: Description,CSF CLEAR
[2025-03-11 14:34] LABS: Protein, CSF 58.5 mg/dL (15-45)
--- NOTE | 2025-03-11 16:32 | DVHPN2 ---
Subjective + overnight events noted. Patient is requesting [place] double dose. Patient is being treated for idiopathic intracranial hypertension. 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 Medications Current Medications Medications Dose Ordered Sig/Pedro Route Start Time Stop Time Status Last Admin Dose Admin Morphine Sulfate 2 mg [id number] PRN IV 03/09/25 21:45 03/10/25 22:08 2 MG Clonidine HCl 0.2 mg Q6HP PRN PO 03/10/25 00:30 03/10/25 04:14 0.2 MG Aspirin 81 mg DAILY PO 03/10/25 10:00 03/10/25 09:09 81 MG Losartan Potassium 100 mg DAILY PO 03/10/25 10:00 03/10/25 09:09 100 MG Gabapentin 600 mg TID PO 03/10/25 06:00 03/11/25 13:34 600 MG Hydrochlorothiazide 25 mg DAILY PO 03/10/25 10:00 03/10/25 09:09 25 MG Atorvastatin Calcium 10 mg HS PO 03/10/25 22:00 03/10/25 21:56 10 MG Ondansetron HCl 4 mg Q4HP PRN IV 03/10/25 00:30 03/10/25 05:08 4 MG Acetaminophen 650 mg Q6HP PRN PO 03/10/25 00:30 03/10/25 01:37 650 MG Acetaminophen/ Hydrocodone Bitart 1 tab Q4HP PRN PO 03/10/25 14:30 03/11/25 05:55 1 TAB Morphine Sulfate 2 mg Q4HPRN PRN IV 03/10/25 14:30 03/11/25 12:27 2 MG Lorazepam 1 mg ONCE PRN IV 03/10/25 22:30 Sodium Chloride 1,000 ml @ 100 mls/hr Q10H IV 03/10/25 22:30 03/11/25 12:28 100 MLS/HR Dexamethasone Sodium Phosphate 10 mg/Dextrose 51 ml @ 204 mls/hr DAILY IV 03/11/25 10:00 03/11/25 12:43 204 MLS/HR Metoclopramide HCl 15 mg Q8HR PO 03/11/25 06:00 03/11/25 13:34 15 MG Alprazolam 1 mg TID PRN PO 03/11/25 15:00 Laboratory Results Laboratory Tests 03/09/25 13:07 03/10/25 01:27 Urinalysis Test 03/10/25 07:21 Urine Color Yellow (Yellow) Urine Clarity Clear (Clear) Urine pH 5.5 (5.0-9.0) Urine Specific [place] 1.043 (1.001-1.035) Urine Protein Trace (Negative) H Urine Ketones Negative (Negative) Urine Blood Negative /uL (Negative) Urine Nitrite Negative (Negative) Urine Bilirubin Negative (Negative) Urine Urobilinogen Normal mg/dL (Negative) Urine Leukocyte Esterase Negative /uL (Negative) Urine RBC 1 /hpf (0 - 4) Urine Microscopic WBC 1 /HPF (0-5) Urine Squamous Epithelial Cells Few /hpf (<5) Urine Bacteria Few /hpf (None Seen) H Urine Mucus Few (None Seen) Urine Glucose Normal mg/dL (Normal) Assessment/Plan Assessment/Plan 49-year-old female with a known history of hypertension, peripheral neuropathy, chronic back pain currently on narcotics who initially was seen in Ophthalmology Department as an outpatient for the eye pressure found to have possible papilledema because of uncontrolled high blood pressure was sent to ER. Patient initially said since head CT was negative MRI is pending. 1. Bilateral eye pressure rule out papilledema ruled out acute CVA 2. Hypertensive emergency 3. Peripheral neuropathy 4. Chronic back pain with a recent history of two back surgeries 5. Chronic narcotic dependency 6. Idiopathic intracranial hypertension -MRI brain noncontrast showed scattered is area of ischemia suspected migraine/demyelinating disease -continue Diamox, continue dexamethasone IV, follow up Neurology recommendations. Plan discussed with: Patient My Orders Orders - JACQUELINE PERDOMO MD Procedure Category Date Status Time Alprazolam Tablet PHA 03/11/25 In Process (Xanax Tablet) 22:00 Cardiac DIET 03/11/25 Transmitted Diet-2gna,Lofat,Lochol Dinner Alprazolam Tablet PHA 03/11/25 In Process (Xanax Tablet) 15:00 Insert Midline ORDERS 03/11/25 Transmitted 15:47 Date of Service: Mar 11, 2025 Billing Provider: JACQUELINE PERDOMO MD Common Visit Codes: [id number] INP/OBS CARE(MOD) JACQUELINE PERDOMO MD Mar 11, 2025 16:32
--- NOTE | 2025-03-11 18:27 | DVHPN2 ---
Progress Note - Dictate Date Seen: Mar 11, 2025 Medical Necessity Reason Pt with a Central, PICC or Fol: No Subjective is a 49 years old right-handed female with a history of hypertension, obesity, bradycardia, chronic low back pain, she came to the [facility] on 03/09/2025 with a chief company of headache, possible papillary edema. 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 MRI head, orbits, 03/10/2025: Scattered punctate areas of increased intensity are seen throughout both cerebral hemispheres on the FLAIR imaging, this could represent microvascular areas of ischemia however this could also represent microvascular changes as seen in migraines as well as demyelinating disease, clinical correlation recommended MRI lumbar spine, 02/05/2025: Posterior fixation of the L4 and L5 vertebral bodies and associated laminectomy. Large disc extrusion at L4-5 which extends 8 mm posteriorly and 2 cm superiorly. This results in severe spinal canal stenosis at the L4 vertebral body level and moderate spinal canal stenosis at the L4-5 disc space level. The disc extrusion compresses upon the descending L4 nerve root. Recommend neurosurgical consultation for further management. Severe neural foraminal stenosis L4-5. Moderate foraminal stenosis L5-S1. Mild neural foraminal stenosis L2-3 and L3-4. T2 bright lesion in the liver measuring 10 mm, appears to represent a cyst based upon CT from 06/01/2024. Other findings as described MRA brain, 03/11/2025: No evidence of hemodynamically significant intracranial stenosis, proximal occlusion or aneurysm. Lumbar puncture Fluoroscopy, 03/11/2025: I was only able to aspirate 1 cc of spinal fluid due to patient motion. Opening closing pressures were 0. vital signs Vital Sign Date Time Temp Pulse Resp B/P (MAP) Pulse Ox O2 Delivery O2 Flow Rate FiO2 03/11/25 17:00 98.2 94 18 135/78 (97) 92 98.2 03/10/25 07:06 Nasal Cannula* 2 28 medications Current Medications Medications Dose Ordered Sig/Pedro Route Start Time Stop Time Status Last Admin Dose Admin Morphine Sulfate 2 mg [id number] PRN IV 03/09/25 21:45 03/10/25 22:08 2 MG Clonidine HCl 0.2 mg Q6HP PRN PO 03/10/25 00:30 03/10/25 04:14 0.2 MG Aspirin 81 mg DAILY PO 03/10/25 10:00 03/10/25 09:09 81 MG Losartan Potassium 100 mg DAILY PO 03/10/25 10:00 03/10/25 09:09 100 MG Gabapentin 600 mg TID PO 03/10/25 06:00 03/11/25 13:34 600 MG Hydrochlorothiazide 25 mg DAILY PO 03/10/25 10:00 03/10/25 09:09 25 MG Atorvastatin Calcium 10 mg HS PO 03/10/25 22:00 03/10/25 21:56 10 MG Ondansetron HCl 4 mg Q4HP PRN IV 03/10/25 00:30 03/10/25 05:08 4 MG Acetaminophen 650 mg Q6HP PRN PO 03/10/25 00:30 03/10/25 01:37 650 MG Acetaminophen/ Hydrocodone Bitart 1 tab Q4HP PRN PO 03/10/25 14:30 03/11/25 18:04 1 TAB Morphine Sulfate 2 mg Q4HPRN PRN IV 03/10/25 14:30 03/11/25 12:27 2 MG Lorazepam 1 mg ONCE PRN IV 03/10/25 22:30 Sodium Chloride 1,000 ml @ 100 mls/hr Q10H IV 03/10/25 22:30 03/11/25 12:28 100 MLS/HR Dexamethasone Sodium Phosphate 10 mg/Dextrose 51 ml @ 204 mls/hr DAILY IV 03/11/25 10:00 03/11/25 12:43 204 MLS/HR Metoclopramide HCl 15 mg Q8HR PO 03/11/25 06:00 03/11/25 13:34 15 MG Alprazolam 1 mg TID PRN PO 03/11/25 15:00 objective General: the patient is well developed and nourished. No acute distress. MENTAL STATUS: Subjective SPEECH, LANGUAGE, HIGHER CORTICAL FUNCTION: no aphasia or dysathria. CRANIAL NERVES: Pupils are equal, round and reactive. EOMs full and conjugate, but she had diplopia no matter which direction she looked to. No nystagmus. Diminished pinprick and light touch in both phases. Mandibular strength intact. Facial muscles symmetrical and strength intact. SENSATION: Sensation to touch and pinprick is remarkably diminished in the extremities, chest and stomach MOTOR: Normal tone in the upper and lower extremity. Normal muscle bulk. No fasciculations. No abnormal movements or posturing. Muscle strength of the major groups in the extremities is 5/5. REFLEXES: Deep tendon reflexes are symmetrically diminished in lower extremities. No pathological reflexes. CEREBELLAR/COORDINATION: Finger to nose is normal bilaterally. GAIT/STATION: deferred. laboratory and microbiology Laboratory Tests 03/10/25 01:27 03/09/25 13:07 Test 03/10/25 01:27 Range/Units Serum Glucose 102 74-106 mg/dL Problem List New onset daily headache with a suspected papilledema, obesity, to rule out idiopathic intracranial hypertension Chronic low back pain Severe diminished pinprick and light touch affecting almost whole-body, ? Polyneuropathy Significant family history of brain aneurysm with negative MRI head on 03/11/2025 Assessment/Plan Monitoring Supportive treatment Gabapentin 600 mg t.i.d. [place] 10/325 mg q.4 hours p.r.n. A trial of Diamox 500 mg b.i.d. D/C Brief course of IV fluid, dexamethasone 10 mg IV daily, Reglan 15 mg t.i.d. Ophthalmology consultation VIN on discharge More recommendation per clinical course This medical document was created using an electronic medical record system with [employer] dictation system. Although this document has been carefully reviewed, there may still be some phonetic and typographical errors. These areas are purely typographical due to imperfections of the software programs, and do not reflect any compromise in the patient's medical care Prognosis poor Plan discussed with: Patient, Other Total Time (mins): 40 MARIUM PEREZ MD Mar 11, 2025 18:27
[2025-03-11] MEDS: acetaZOLAMIDE 250 MG TAB PO SCH (21:23)
[2025-03-11] MEDS ORDERED: ALPRAZolam 0.5 MG TAB PO SCH (22:00)
[2025-03-11] MEDS: ALPRAZolam 0.5 MG TAB PO PRN (23:35)
[2025-03-12] VITALS (7 sets, daily range): BP systolic 107–142; BP diastolic 71–94; PULSE 71–91; RESP 17–20; TEMP 97.6–98.4; O2SAT 92–99
--- NOTE | 2025-03-12 02:00 | DVHSR ---
APPROVED REPORT EXAM: Two-dimensional and M-mode echocardiogram with Doppler and color Doppler. Blood Pressure: 105/53 mmHg INDICATION Hypertensive crisis RISK FACTORS Height: 50, Weight: 154 DIMENSIONS LVDd5.4 (3.8-5.7cm)LA (2D)3.5 (1.9-4.0cm)Aortic Root3.5 (2.0-3.7cm) LVDs4.0 (2.5-4.0cm)LA (MM) (1.9-4.0cm)Aortic Cusp Exc1.8 (1.5-2.0cm) EF (%) 52.0 (55-70%)Rt. Atrium3.9 (1.9-4.0cm)Asc. Aorta cm Mitral Valve MitralMitral Stenosis E wave0.66m/sMV Mean GR.mmHg A wave0.66m/sMV Peak GR.mmHg E/A ratio1.02D MVAcm2 DECEL [id number] 1/2 Iprg64ke IVRTmsDop MVA2.30cm2 Aortic Valve Aortic ValveAortic Stenosis V10.78m/Bharti Mean GR.4mmHg V21.38m/Bharti Peak GR.8mmHg LVOT Diameter2.3 (1.8-2.4cm)Doppler AVA2.35cm2 Pulmonic Valve V20.64m/s Conclusion MILD LVH AND MILD LV DIASTOLIC DYSFUNCTION LV EF IS 60% AND IS NORMAL NORMAL RV FUNCTION NORMAL VALVES NO EFFUSION
[2025-03-12] MEDS ORDERED: SIME80CH49 PO (16:03)
[2025-03-12] MEDS ORDERED: ALPR1TAB7 PO (16:03)
[2025-03-12] MEDS ORDERED: TIZA4CAP PO (16:03)
[2025-03-12] MEDS ORDERED: ALBUAER3 IN (16:03)
--- NOTE | 2025-03-12 16:39 | DVHPN2 ---
Subjective Patient is complaining of daily headaches, currently on dexamethasone as well as Diamox. 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 Medications Current Medications Medications Dose Ordered Sig/Pedro Route Start Time Stop Time Status Last Admin Dose Admin Morphine Sulfate 2 mg [id number] PRN IV 03/09/25 21:45 03/10/25 22:08 2 MG Clonidine HCl 0.2 mg Q6HP PRN PO 03/10/25 00:30 03/10/25 04:14 0.2 MG Aspirin 81 mg DAILY PO 03/10/25 10:00 03/12/25 10:20 81 MG Losartan Potassium 100 mg DAILY PO 03/10/25 10:00 03/12/25 10:20 100 MG Gabapentin 600 mg TID PO 03/10/25 06:00 03/12/25 13:35 600 MG Hydrochlorothiazide 25 mg DAILY PO 03/10/25 10:00 03/12/25 10:20 25 MG Atorvastatin Calcium 10 mg HS PO 03/10/25 22:00 03/11/25 21:02 10 MG Ondansetron HCl 4 mg Q4HP PRN IV 03/10/25 00:30 03/12/25 02:04 4 MG Acetaminophen 650 mg Q6HP PRN PO 03/10/25 00:30 03/12/25 03:13 650 MG Acetaminophen/ Hydrocodone Bitart 1 tab Q4HP PRN PO 03/10/25 14:30 03/12/25 13:38 1 TAB Lorazepam 1 mg ONCE PRN IV 03/10/25 22:30 Metoclopramide HCl 15 mg Q8HR PO 03/11/25 06:00 03/12/25 13:37 15 MG Alprazolam 1 mg TID PRN PO 03/11/25 15:00 03/12/25 10:47 1 MG Acetazolamide 500 mg Q12HR PO 03/11/25 22:00 03/12/25 12:20 500 MG Lactulose 30 ml TID PO 03/12/25 22:00 Hydromorphone HCl 0.5 mg Q4HPRN PRN IV 03/12/25 15:45 Laboratory Results Laboratory Tests 03/09/25 13:07 03/10/25 01:27 Urinalysis Test 03/10/25 07:21 Urine Color Yellow (Yellow) Urine Clarity Clear (Clear) Urine pH 5.5 (5.0-9.0) Urine Specific [place] 1.043 (1.001-1.035) Urine Protein Trace (Negative) H Urine Ketones Negative (Negative) Urine Blood Negative /uL (Negative) Urine Nitrite Negative (Negative) Urine Bilirubin Negative (Negative) Urine Urobilinogen Normal mg/dL (Negative) Urine Leukocyte Esterase Negative /uL (Negative) Urine RBC 1 /hpf (0 - 4) Urine Microscopic WBC 1 /HPF (0-5) Urine Squamous Epithelial Cells Few /hpf (<5) Urine Bacteria Few /hpf (None Seen) H Urine Mucus Few (None Seen) Urine Glucose Normal mg/dL (Normal) Assessment/Plan Assessment/Plan 49-year-old female with a known history of hypertension, peripheral neuropathy, chronic back pain currently on narcotics who initially was seen in Ophthalmology Department as an outpatient for the eye pressure found to have possible papilledema because of uncontrolled high blood pressure was sent to ER. Patient initially said since head CT was negative MRI is pending. 1. Bilateral eye pressure rule out papilledema ruled out acute CVA 2. Hypertensive emergency 3. Peripheral neuropathy 4. Chronic back pain with a recent history of two back surgeries 5. Chronic narcotic dependency 6. Idiopathic intracranial hypertension -MRI brain noncontrast showed scattered is area of ischemia suspected migraine/demyelinating disease -continue Diamox, continue dexamethasone IV, follow up Neurology recommendations. -discontinue morphine, start Dilaudid for better pain management. Plan discussed with: Patient My Orders Orders - JACQUELINE PERDOMO MD Procedure Category Date Status Time Regular Diet DIET 03/12/25 Transmitted Dinner Lactulose Oral PHA 03/12/25 In Process 22:00 Hydromorphone PHA 03/12/25 In Process Injection (Dilaudid 15:45 Date of Service: Mar 12, 2025 Billing Provider: JACQUELINE PERDOMO MD Common Visit Codes: [id number] INP/OBS CARE(MOD) JACQUELINE PERDOMO MD Mar 12, 2025 16:39
[2025-03-12] MEDS: HYDROmorphone HCL 2 MG/ML VL/or syr IV PRN (18:03)
[2025-03-12] MEDS: LACTULOSE 20Gm/30ML SOLN PO SCH (21:14)
--- NOTE | 2025-03-12 23:35 | DVHPN2 ---
Progress Note - Dictate Date Seen: Mar 12, 2025 Medical Necessity Reason Pt with a Central, PICC or Fol: No Subjective is a 49 years old right-handed female with a history of hypertension, obesity, bradycardia, chronic low back pain, she came to the [facility] on 03/09/2025 with a chief company of headache, possible papillary edema. I have seen and examined the patient, talked to her nurse, the case was discussed with Dr. Mckeon She reports ongoing bad headache with no changes, again which is better with sitting up, worse with lying down, No Diamox side effects symptoms CSF, 03/11/2025 C/C, WBC: 1, RBC: 68, protein: CBC 8.5, glucose: 81 CBC, 03/09/2025: Unremarkable BMP 03/10/2025: Unremarkable HGB A1c, 03/10/2025: 5.5 TSH, 03/10/2025: 2.04 CT head, 03/09/2025: No acute intracranial findings as visualized. MRI head, orbits, 03/10/2025: Scattered punctate areas of increased intensity are seen throughout both cerebral hemispheres on the FLAIR imaging, this could represent microvascular areas of ischemia however this could also represent microvascular changes as seen in migraines as well as demyelinating disease, clinical correlation recommended MRI lumbar spine, 02/05/2025: Posterior fixation of the L4 and L5 vertebral bodies and associated laminectomy. Large disc extrusion at L4-5 which extends 8 mm posteriorly and 2 cm superiorly. This results in severe spinal canal stenosis at the L4 vertebral body level and moderate spinal canal stenosis at the L4-5 disc space level. The disc extrusion compresses upon the descending L4 nerve root. Recommend neurosurgical consultation for further management. Severe neural foraminal stenosis L4-5. Moderate foraminal stenosis L5-S1. Mild neural foraminal stenosis L2-3 and L3-4. T2 bright lesion in the liver measuring 10 mm, appears to represent a cyst based upon CT from 06/01/2024. Other findings as described MRA brain, 03/11/2025: No evidence of hemodynamically significant intracranial stenosis, proximal occlusion or aneurysm. Lumbar puncture Fluoroscopy, 03/11/2025: I was only able to aspirate 1 cc of spinal fluid due to patient motion. Opening closing pressures were 0. vital signs Vital Sign Date Time Temp Pulse Resp B/P (MAP) Pulse Ox O2 Delivery O2 Flow Rate FiO2 03/12/25 23:15 78 19 133/89 03/12/25 21:00 97.6 98 97.6 03/12/25 20:00 Room Air* 0 21 Total Intake and Output 03/11/25 03/11/25 03/12/25 14:59 22:59 06:59 Intake Total 351 ml 1050 ml 700 ml Balance 351 ml 1050 ml 700 ml medications Current Medications Medications Dose Ordered Sig/Pedro Route Start Time Stop Time Status Last Admin Dose Admin Morphine Sulfate 2 mg [id number] PRN IV 03/09/25 21:45 03/10/25 22:08 2 MG Clonidine HCl 0.2 mg Q6HP PRN PO 03/10/25 00:30 03/10/25 04:14 0.2 MG Aspirin 81 mg DAILY PO 03/10/25 10:00 03/12/25 10:20 81 MG Losartan Potassium 100 mg DAILY PO 03/10/25 10:00 03/12/25 10:20 100 MG Gabapentin 600 mg TID PO 03/10/25 06:00 03/12/25 21:15 600 MG Hydrochlorothiazide 25 mg DAILY PO 03/10/25 10:00 03/12/25 10:20 25 MG Atorvastatin Calcium 10 mg HS PO 03/10/25 22:00 03/12/25 21:14 10 MG Ondansetron HCl 4 mg Q4HP PRN IV 03/10/25 00:30 03/12/25 02:04 4 MG Acetaminophen 650 mg Q6HP PRN PO 03/10/25 00:30 03/12/25 03:13 650 MG Acetaminophen/ Hydrocodone Bitart 1 tab Q4HP PRN PO 03/10/25 14:30 03/12/25 21:14 1 TAB Lorazepam 1 mg ONCE PRN IV 03/10/25 22:30 Metoclopramide HCl 15 mg Q8HR PO 03/11/25 06:00 03/12/25 21:14 15 MG Alprazolam 1 mg TID PRN PO 03/11/25 15:00 03/12/25 21:15 1 MG Acetazolamide 500 mg Q12HR PO 03/11/25 22:00 03/12/25 21:14 500 MG Lactulose 30 ml TID PO 03/12/25 22:00 03/12/25 21:14 30 ML Hydromorphone HCl 0.5 mg Q4HPRN PRN IV 03/12/25 15:45 03/12/25 23:15 0.5 MG objective General: the patient is well developed and nourished. No acute distress. MENTAL STATUS: Subjective SPEECH, LANGUAGE, HIGHER CORTICAL FUNCTION: no aphasia or dysathria. CRANIAL NERVES: Pupils are equal, round and reactive. EOMs full and conjugate, but she had diplopia no matter which direction she looked to. No nystagmus. Diminished pinprick and light touch in both phases. Mandibular strength intact. Facial muscles symmetrical and strength intact. SENSATION: Sensation to touch and pinprick is remarkably diminished in the extremities, chest and stomach MOTOR: Normal tone in the upper and lower extremity. Normal muscle bulk. No fasciculations. No abnormal movements or posturing. Muscle strength of the major groups in the extremities is 5/5. REFLEXES: Deep tendon reflexes are symmetrically diminished in lower extremities. No pathological reflexes. CEREBELLAR/COORDINATION: Finger to nose is normal bilaterally. GAIT/STATION: Unremarkable laboratory and microbiology Laboratory Tests 03/10/25 01:27 03/09/25 13:07 Test 03/10/25 01:27 Range/Units Serum Glucose 102 74-106 mg/dL Problem List New onset daily headache with a suspected papilledema, obesity, to rule out idiopathic intracranial hypertension Chronic low back pain Severe diminished pinprick and light touch affecting almost whole-body, ? Polyneuropathy Significant family history of brain aneurysm with negative MRI head on 03/11/2025 Assessment/Plan Monitoring Supportive treatment Gabapentin 600 mg t.i.d. [place] 10/325 mg q.4 hours p.r.n. Diamox 500 mg b.i.d. Ophthalmology consultation VIN on discharge More recommendation per clinical course This medical document was created using an electronic medical record system with [employer] dictation system. Although this document has been carefully reviewed, there may still be some phonetic and typographical errors. These areas are purely typographical due to imperfections of the software programs, and do not reflect any compromise in the patient's medical care Prognosis poor Plan discussed with: Patient, Other MARIUM PEREZ MD Mar 12, 2025 23:35
[2025-03-13] VITALS (8 sets, daily range): BP systolic 96–125; BP diastolic 62–91; PULSE 67–90; RESP 16–20; TEMP 97.5–98.2; O2SAT 93–99
--- NOTE | 2025-03-13 14:10 | DVHPN2 ---
Progress Note - Dictate Date Seen: Mar 13, 2025 Medical Necessity Reason Pt with a Central, PICC or Fol: No Subjective is a 49 years old right-handed female with a history of hypertension, obesity, bradycardia, chronic low back pain, she came to the [facility] on 03/09/2025 with a chief company of headache, possible papillary edema. I have seen and examined the patient, talked to her nurse, she reports ongoing headache with no changes, she keeps walking because the headaches better when she is, she reports blurry vision which is partially fixed with eyeglasses She requested her Dilaudid dosage be increased CSF, 03/11/2025 C/C, WBC: 1, RBC: 68, protein: CBC 8.5, glucose: 81 CBC, 03/09/2025: Unremarkable BMP 03/10/2025: Unremarkable HGB A1c, 03/10/2025: 5.5 TSH, 03/10/2025: 2.04 CT head, 03/09/2025: No acute intracranial findings as visualized. MRI head, orbits, 03/10/2025: Scattered punctate areas of increased intensity are seen throughout both cerebral hemispheres on the FLAIR imaging, this could represent microvascular areas of ischemia however this could also represent microvascular changes as seen in migraines as well as demyelinating disease, clinical correlation recommended MRI lumbar spine, 02/05/2025: Posterior fixation of the L4 and L5 vertebral bodies and associated laminectomy. Large disc extrusion at L4-5 which extends 8 mm posteriorly and 2 cm superiorly. This results in severe spinal canal stenosis at the L4 vertebral body level and moderate spinal canal stenosis at the L4-5 disc space level. The disc extrusion compresses upon the descending L4 nerve root. Recommend neurosurgical consultation for further management. Severe neural foraminal stenosis L4-5. Moderate foraminal stenosis L5-S1. Mild neural foraminal stenosis L2-3 and L3-4. T2 bright lesion in the liver measuring 10 mm, appears to represent a cyst based upon CT from 06/01/2024. Other findings as described MRA brain, 03/11/2025: No evidence of hemodynamically significant intracranial stenosis, proximal occlusion or aneurysm. Lumbar puncture Fluoroscopy, 03/11/2025: I was only able to aspirate 1 cc of spinal fluid due to patient motion. Opening closing pressures were 0. vital signs Vital Sign Date Time Temp Pulse Resp B/P (MAP) Pulse Ox O2 Delivery O2 Flow Rate FiO2 03/13/25 13:41 83 17 125/85 03/13/25 12:37 97.9 98 97.9 03/13/25 08:00 Room Air* 0 21 Total Intake and Output 03/12/25 03/12/25 03/13/25 15:00 23:00 07:00 Intake Total 240 ml 1600 ml Balance 240 ml 1600 ml medications Current Medications Medications Dose Ordered Sig/Pedro Route Start Time Stop Time Status Last Admin Dose Admin Morphine Sulfate 2 mg [id number] PRN IV 03/09/25 21:45 03/10/25 22:08 2 MG Clonidine HCl 0.2 mg Q6HP PRN PO 03/10/25 00:30 03/10/25 04:14 0.2 MG Aspirin 81 mg DAILY PO 03/10/25 10:00 03/13/25 10:41 81 MG Losartan Potassium 100 mg DAILY PO 03/10/25 10:00 03/13/25 10:42 100 MG Gabapentin 600 mg TID PO 03/10/25 06:00 03/13/25 06:18 600 MG Hydrochlorothiazide 25 mg DAILY PO 03/10/25 10:00 03/13/25 10:00 25 MG Atorvastatin Calcium 10 mg HS PO 03/10/25 22:00 03/12/25 21:14 10 MG Ondansetron HCl 4 mg Q4HP PRN IV 03/10/25 00:30 03/12/25 02:04 4 MG Acetaminophen 650 mg Q6HP PRN PO 03/10/25 00:30 03/12/25 03:13 650 MG Acetaminophen/ Hydrocodone Bitart 1 tab Q4HP PRN PO 03/10/25 14:30 03/13/25 12:00 1 TAB Lorazepam 1 mg ONCE PRN IV 03/10/25 22:30 Metoclopramide HCl 15 mg Q8HR PO 03/11/25 06:00 03/13/25 06:18 15 MG Alprazolam 1 mg TID PRN PO 03/11/25 15:00 03/13/25 10:46 1 MG Acetazolamide 500 mg Q12HR PO 03/11/25 22:00 03/13/25 10:41 500 MG Lactulose 30 ml TID PO 03/12/25 22:00 03/13/25 06:17 30 ML Hydromorphone HCl 0.5 mg Q4HPRN PRN IV 03/12/25 15:45 03/13/25 13:41 0.5 MG objective General: the patient is well developed and nourished. No acute distress. MENTAL STATUS: Subjective SPEECH, LANGUAGE, HIGHER CORTICAL FUNCTION: no aphasia or dysathria. CRANIAL NERVES: Pupils are equal, round and reactive. EOMs full and conjugate, but she had diplopia no matter which direction she looked to. No nystagmus. Diminished pinprick and light touch in both phases. Mandibular strength intact. Facial muscles symmetrical and strength intact. SENSATION: Sensation to touch and pinprick is remarkably diminished in the extremities, chest and stomach MOTOR: Normal tone in the upper and lower extremity. Normal muscle bulk. No fasciculations. No abnormal movements or posturing. Muscle strength of the major groups in the extremities is 5/5. REFLEXES: Deep tendon reflexes are symmetrically diminished in lower extremities. No pathological reflexes. CEREBELLAR/COORDINATION: Finger to nose is normal bilaterally. GAIT/STATION: Unremarkable laboratory and microbiology Laboratory Tests 03/10/25 01:27 03/09/25 13:07 Test 03/10/25 01:27 Range/Units Serum Glucose 102 74-106 mg/dL Problem List New onset daily headache with a suspected papilledema, obesity, to rule out idiopathic intracranial hypertension Chronic low back pain Severe diminished pinprick and light touch affecting almost whole-body, ? Polyneuropathy Significant family history of brain aneurysm with negative MRI head on 03/11/2025 Assessment/Plan Monitoring Supportive treatment Gabapentin 600 mg t.i.d. [place] 10/325 mg q.4 hours p.r.n. Dilaudid 0.5 mg q.4 hours IV Diamox 500 mg b.i.d. Ophthalmology consultation VIN on discharge More recommendation per clinical course This medical document was created using an electronic medical record system with [employer] dictation system. Although this document has been carefully reviewed, there may still be some phonetic and typographical errors. These areas are purely typographical due to imperfections of the software programs, and do not reflect any compromise in the patient's medical care Prognosis poor Plan discussed with: Patient, Other MARIUM PEREZ MD Mar 13, 2025 14:10
--- NOTE | 2025-03-13 16:36 | DVHPN2 ---
Subjective Patient is complaining of daily headaches, currently on dexamethasone as well as Diamox. Patient has stated that Dilaudid is not working, we will switch back to morphine IV p.r.n.. Changes from previous H/P or p: No Changes Objective Vitals Vital Signs Date Time Temp Pulse Resp B/P (MAP) Pulse Ox O2 Delivery O2 Flow Rate FiO2 03/13/25 13:41 83 17 125/85 03/13/25 12:37 97.9 98 97.9 03/13/25 08:00 Room Air* 0 21 Intake/Output Intake and Output 03/13/25 07:00 Intake Total 1840 ml Balance 1840 ml Intake Oral 1840 ml # Voids 20 # Bowel Movements 6 Exam HEENT pupils are reactive Neck is supple CV is S1-S2 regular rate and rhythm Respiratory diminished breath sounds bases GI positive bowel sound Extremity no edema SKIN FORMER no motor deficit. Medications Current Medications Medications Dose Ordered Sig/Pedro Route Start Time Stop Time Status Last Admin Dose Admin Morphine Sulfate 2 mg [id number] PRN IV 03/09/25 21:45 03/10/25 22:08 2 MG Clonidine HCl 0.2 mg Q6HP PRN PO 03/10/25 00:30 03/10/25 04:14 0.2 MG Aspirin 81 mg DAILY PO 03/10/25 10:00 03/13/25 10:41 81 MG Losartan Potassium 100 mg DAILY PO 03/10/25 10:00 03/13/25 10:42 100 MG Gabapentin 600 mg TID PO 03/10/25 06:00 03/13/25 14:26 600 MG Hydrochlorothiazide 25 mg DAILY PO 03/10/25 10:00 03/13/25 10:00 25 MG Atorvastatin Calcium 10 mg HS PO 03/10/25 22:00 03/12/25 21:14 10 MG Ondansetron HCl 4 mg Q4HP PRN IV 03/10/25 00:30 03/12/25 02:04 4 MG Acetaminophen 650 mg Q6HP PRN PO 03/10/25 00:30 03/12/25 03:13 650 MG Acetaminophen/ Hydrocodone Bitart 1 tab Q4HP PRN PO 03/10/25 14:30 03/13/25 12:00 1 TAB Lorazepam 1 mg ONCE PRN IV 03/10/25 22:30 Metoclopramide HCl 15 mg Q8HR PO 03/11/25 06:00 03/13/25 06:18 15 MG Alprazolam 1 mg TID PRN PO 03/11/25 15:00 03/13/25 10:46 1 MG Acetazolamide 500 mg Q12HR PO 03/11/25 22:00 03/13/25 10:41 500 MG Lactulose 30 ml TID PO 03/12/25 22:00 03/13/25 06:17 30 ML Morphine Sulfate 2 mg Q2HPRN PRN IV 03/13/25 15:45 Laboratory Results Laboratory Tests 03/09/25 13:07 03/10/25 01:27 Urinalysis Test 03/10/25 07:21 Urine Color Yellow (Yellow) Urine Clarity Clear (Clear) Urine pH 5.5 (5.0-9.0) Urine Specific [place] 1.043 (1.001-1.035) Urine Protein Trace (Negative) H Urine Ketones Negative (Negative) Urine Blood Negative /uL (Negative) Urine Nitrite Negative (Negative) Urine Bilirubin Negative (Negative) Urine Urobilinogen Normal mg/dL (Negative) Urine Leukocyte Esterase Negative /uL (Negative) Urine RBC 1 /hpf (0 - 4) Urine Microscopic WBC 1 /HPF (0-5) Urine Squamous Epithelial Cells Few /hpf (<5) Urine Bacteria Few /hpf (None Seen) H Urine Mucus Few (None Seen) Urine Glucose Normal mg/dL (Normal) Assessment/Plan Assessment/Plan 49-year-old female with a known history of hypertension, peripheral neuropathy, chronic back pain currently on narcotics who initially was seen in Ophthalmology Department as an outpatient for the eye pressure found to have possible papilledema because of uncontrolled high blood pressure was sent to ER. Patient initially said since head CT was negative MRI is pending. 1. Bilateral eye pressure rule out papilledema ruled out acute CVA 2. Hypertensive emergency 3. Peripheral neuropathy 4. Chronic back pain with a recent history of two back surgeries 5. Chronic narcotic dependency 6. Idiopathic intracranial hypertension -MRI brain noncontrast showed scattered is area of ischemia suspected migraine/demyelinating disease -continue Diamox, continue dexamethasone IV, follow up Neurology recommendations. -discontinue Dilaudid, restart morphine p.r.n.. Plan discussed with: Patient My Orders Orders - JACQUELINE PERDOMO MD Procedure Category Date Status Time Morphine Sulfate PHA 03/13/25 In Process Injection 15:45 Date of Service: Mar 13, 2025 Billing Provider: JACQUELINE PERDOMO MD Common Visit Codes: [id number] INP/OBS CARE(MOD) JACQUELINE PERDOMO MD Mar 13, 2025 16:36
[2025-03-13] MEDS: MORPHINE SULFATE INJ 2 MG/ml SYRG IV PRN (18:20)
[2025-03-14] VITALS (8 sets, daily range): BP systolic 87–121; BP diastolic 50–87; PULSE 51–116; RESP 17–19; TEMP 97.7–98.1; O2SAT 94–98
--- NOTE | 2025-03-14 15:52 | DVHPN2 ---
Subjective Patient is complaining of daily headaches, currently on dexamethasone as well as Diamox. Patient has stated that she is getting better but maybe one more day. 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 Medications Current Medications Medications Dose Ordered Sig/Pedro Route Start Time Stop Time Status Last Admin Dose Admin Morphine Sulfate 2 mg [id number] PRN IV 03/09/25 21:45 03/14/25 04:10 2 MG Clonidine HCl 0.2 mg Q6HP PRN PO 03/10/25 00:30 03/10/25 04:14 0.2 MG Aspirin 81 mg DAILY PO 03/10/25 10:00 03/14/25 10:01 81 MG Losartan Potassium 100 mg DAILY PO 03/10/25 10:00 03/14/25 10:01 100 MG Gabapentin 600 mg TID PO 03/10/25 06:00 03/14/25 15:05 600 MG Hydrochlorothiazide 25 mg DAILY PO 03/10/25 10:00 03/14/25 10:00 25 MG Atorvastatin Calcium 10 mg HS PO 03/10/25 22:00 03/13/25 22:16 10 MG Ondansetron HCl 4 mg Q4HP PRN IV 03/10/25 00:30 03/12/25 02:04 4 MG Acetaminophen 650 mg Q6HP PRN PO 03/10/25 00:30 03/12/25 03:13 650 MG Acetaminophen/ Hydrocodone Bitart 1 tab Q4HP PRN PO 03/10/25 14:30 03/14/25 01:01 1 TAB Lorazepam 1 mg ONCE PRN IV 03/10/25 22:30 Metoclopramide HCl 15 mg Q8HR PO 03/11/25 06:00 03/14/25 05:53 15 MG Alprazolam 1 mg TID PRN PO 03/11/25 15:00 03/14/25 15:06 1 MG Acetazolamide 500 mg Q12HR PO 03/11/25 22:00 03/14/25 10:01 500 MG Lactulose 30 ml TID PO 03/12/25 22:00 03/13/25 06:17 30 ML Morphine Sulfate 2 mg Q2HPRN PRN IV 03/13/25 15:45 03/14/25 13:14 2 MG Laboratory Results Laboratory Tests 03/09/25 13:07 03/10/25 01:27 Urinalysis Test 03/10/25 07:21 Urine Color Yellow (Yellow) Urine Clarity Clear (Clear) Urine pH 5.5 (5.0-9.0) Urine Specific [place] 1.043 (1.001-1.035) Urine Protein Trace (Negative) H Urine Ketones Negative (Negative) Urine Blood Negative /uL (Negative) Urine Nitrite Negative (Negative) Urine Bilirubin Negative (Negative) Urine Urobilinogen Normal mg/dL (Negative) Urine Leukocyte Esterase Negative /uL (Negative) Urine RBC 1 /hpf (0 - 4) Urine Microscopic WBC 1 /HPF (0-5) Urine Squamous Epithelial Cells Few /hpf (<5) Urine Bacteria Few /hpf (None Seen) H Urine Mucus Few (None Seen) Urine Glucose Normal mg/dL (Normal) Assessment/Plan Assessment/Plan 49-year-old female with a known history of hypertension, peripheral neuropathy, chronic back pain currently on narcotics who initially was seen in Ophthalmology Department as an outpatient for the eye pressure found to have possible papilledema because of uncontrolled high blood pressure was sent to ER. Patient initially said since head CT was negative MRI is pending. 1. Bilateral eye pressure rule out papilledema ruled out acute CVA 2. Hypertensive emergency 3. Peripheral neuropathy 4. Chronic back pain with a recent history of two back surgeries 5. Chronic narcotic dependency 6. Idiopathic intracranial hypertension -MRI brain noncontrast showed scattered is area of ischemia suspected migraine/demyelinating disease -continue Diamox, continue dexamethasone IV, follow up Neurology recommendations. -continue pain meds as needed, discharge plan. Plan discussed with: Patient Date of Service: Mar 14, 2025 Billing Provider: JACQUELINE PERDOMO MD Common Visit Codes: [id number] INP/OBS CARE(MOD) JACQUELINE PERDOMO MD Mar 14, 2025 15:52
--- NOTE | 2025-03-14 22:52 | DVHPN2 ---
Progress Note - Dictate Date Seen: Mar 14, 2025 Medical Necessity Reason Pt with a Central, PICC or Fol: No Subjective is a 49 years old right-handed female with a history of hypertension, obesity, bradycardia, chronic low back pain, she came to the [facility] on 03/09/2025 with a chief company of headache, possible papillary edema. I have seen and examined the patient, talked to her nurse, she reports ongoing headache with no changes, worse when she is in the bed She reports poor sleep all the time in the hospital, but her nurse reports she snores when they checked her out in the night CSF, 03/11/2025 C/C, WBC: 1, RBC: 68, protein: CBC 8.5, glucose: 81 CBC, 03/09/2025: Unremarkable BMP 03/10/2025: Unremarkable HGB A1c, 03/10/2025: 5.5 TSH, 03/10/2025: 2.04 CT head, 03/09/2025: No acute intracranial findings as visualized. MRI head, orbits, 03/10/2025: Scattered punctate areas of increased intensity are seen throughout both cerebral hemispheres on the FLAIR imaging, this could represent microvascular areas of ischemia however this could also represent microvascular changes as seen in migraines as well as demyelinating disease, clinical correlation recommended MRI lumbar spine, 02/05/2025: Posterior fixation of the L4 and L5 vertebral bodies and associated laminectomy. Large disc extrusion at L4-5 which extends 8 mm posteriorly and 2 cm superiorly. This results in severe spinal canal stenosis at the L4 vertebral body level and moderate spinal canal stenosis at the L4-5 disc space level. The disc extrusion compresses upon the descending L4 nerve root. Recommend neurosurgical consultation for further management. Severe neural foraminal stenosis L4-5. Moderate foraminal stenosis L5-S1. Mild neural foraminal stenosis L2-3 and L3-4. T2 bright lesion in the liver measuring 10 mm, appears to represent a cyst based upon CT from 06/01/2024. Other findings as described MRA brain, 03/11/2025: No evidence of hemodynamically significant intracranial stenosis, proximal occlusion or aneurysm. Lumbar puncture Fluoroscopy, 03/11/2025: I was only able to aspirate 1 cc of spinal fluid due to patient motion. Opening closing pressures were 0. vital signs Vital Sign Date Time Temp Pulse Resp B/P (MAP) Pulse Ox O2 Delivery O2 Flow Rate FiO2 03/14/25 21:33 100 18 121/80 03/14/25 21:00 97.7 98 97.7 03/14/25 08:00 Room Air* 0 21 Total Intake and Output 03/13/25 03/13/25 03/14/25 15:00 23:00 07:00 Intake Total 2250 ml 1200 ml Balance 2250 ml 1200 ml medications Current Medications Medications Dose Ordered Sig/Pedro Route Start Time Stop Time Status Last Admin Dose Admin Morphine Sulfate 2 mg [id number] PRN IV 03/09/25 21:45 03/14/25 21:33 2 MG Clonidine HCl 0.2 mg Q6HP PRN PO 03/10/25 00:30 03/10/25 04:14 0.2 MG Aspirin 81 mg DAILY PO 03/10/25 10:00 03/14/25 10:01 81 MG Losartan Potassium 100 mg DAILY PO 03/10/25 10:00 03/14/25 10:01 100 MG Gabapentin 600 mg TID PO 03/10/25 06:00 03/14/25 21:30 600 MG Hydrochlorothiazide 25 mg DAILY PO 03/10/25 10:00 03/14/25 10:00 25 MG Atorvastatin Calcium 10 mg HS PO 03/10/25 22:00 03/14/25 22:08 10 MG Ondansetron HCl 4 mg Q4HP PRN IV 03/10/25 00:30 03/12/25 02:04 4 MG Acetaminophen 650 mg Q6HP PRN PO 03/10/25 00:30 03/12/25 03:13 650 MG Acetaminophen/ Hydrocodone Bitart 1 tab Q4HP PRN PO 03/10/25 14:30 03/14/25 18:21 1 TAB Lorazepam 1 mg ONCE PRN IV 03/10/25 22:30 Metoclopramide HCl 15 mg Q8HR PO 03/11/25 06:00 03/14/25 21:30 15 MG Alprazolam 1 mg TID PRN PO 03/11/25 15:00 03/14/25 22:08 1 MG Acetazolamide 500 mg Q12HR PO 03/11/25 22:00 03/14/25 22:08 500 MG Lactulose 30 ml TID PO 03/12/25 22:00 03/14/25 21:29 30 ML Morphine Sulfate 2 mg Q2HPRN PRN IV 03/13/25 15:45 03/14/25 16:40 2 MG objective General: the patient is well developed and nourished. No acute distress. MENTAL STATUS: Subjective SPEECH, LANGUAGE, HIGHER CORTICAL FUNCTION: no aphasia or dysathria. CRANIAL NERVES: Pupils are equal, round and reactive. EOMs full and conjugate, but she had diplopia no matter which direction she looked to. No nystagmus. Diminished pinprick and light touch in both phases. Mandibular strength intact. Facial muscles symmetrical and strength intact. SENSATION: Sensation to touch and pinprick is remarkably diminished in the extremities, chest and stomach MOTOR: Normal tone in the upper and lower extremity. Normal muscle bulk. No fasciculations. No abnormal movements or posturing. Muscle strength of the major groups in the extremities is 5/5. REFLEXES: Deep tendon reflexes are symmetrically diminished in lower extremities. No pathological reflexes. CEREBELLAR/COORDINATION: Finger to nose is normal bilaterally. GAIT/STATION: Unremarkable laboratory and microbiology Laboratory Tests 03/10/25 01:27 03/09/25 13:07 Test 03/10/25 01:27 Range/Units Serum Glucose 102 74-106 mg/dL Problem List New onset daily headache with a suspected papilledema, obesity, to rule out idiopathic intracranial hypertension Chronic low back pain Severe diminished pinprick and light touch affecting almost whole-body, ? Polyneuropathy Significant family history of brain aneurysm with negative MRI head on 03/11/2025 Assessment/Plan Monitoring Supportive treatment Gabapentin 600 mg t.i.d. Shaniko 10/325 mg q.4 hours p.r.n. Dilaudid 0.5 mg q.4 hours IV Diamox 500 mg b.i.d. Ophthalmology consultation VIN on discharge More recommendation per clinical course This medical document was created using an electronic medical record system with [employer] dictation system. Although this document has been carefully reviewed, there may still be some phonetic and typographical errors. These areas are purely typographical due to imperfections of the software programs, and do not reflect any compromise in the patient's medical care Prognosis poor Dietary Evaluation Review Comments: 1) Add 2g Na restriction to diet 2) Encourage optimal PO intake 3) Refer to outpatient RD for weight management 4) Follow-up with cardiology 5) Continue to monitor I&O, labs, and skin integrity Expected Outcomes/Goals: 1) appetite and labs to improve 2) gradual wt loss 3) f/u in 3-5 days Plan discussed with: Patient, Other MARIUM PEREZ MD Mar 14, 2025 22:51
[2025-03-15] VITALS (7 sets, daily range): BP systolic 95–124; BP diastolic 63–84; PULSE 75–99; RESP 12–18; TEMP 97.5–98.5; O2SAT 92–98
[2025-03-15] MEDS ORDERED: ACE250T PO (17:18)
--- NOTE | 2025-03-15 17:20 | DVHDS2 ---
Discharge Summary Date of Admission Mar 09, 2025 at 23:54 Date of Discharge: Mar 15, 2025 Labs/Diagnostic Data: Laboratory Results Test 03/11/25 09:30 03/10/25 07:21 03/10/25 01:27 03/09/25 13:07 CSF Tube Number Tube 1 CSF Appearance Clear CSF WBC 1 CUMM (0-5) CSF RBC 68 CUMM (0-5) CSF Protein (Tube 2) 58.5 mg/dL (15-45) CSF Mononuclear Cells % CSF Polymorphonuclear Cells % CSF Glucose 81 mg/dL (40-70) Urine Color Yellow (Yellow) Urine Clarity Clear (Clear) Urine pH 5.5 (5.0-9.0) Urine Specific [place] 1.043 (1.001-1.035) Urine Protein Trace (Negative) Urine Ketones Negative (Negative) Urine Blood Negative /uL (Negative) Urine Nitrite Negative (Negative) Urine Bilirubin Negative (Negative) Urine Urobilinogen Normal mg/dL (Negative) Urine Leukocyte Esterase Negative /uL (Negative) Urine RBC 1 /hpf (0 - 4) Urine Microscopic WBC 1 /HPF (0-5) Urine Squamous Epithelial Cells Few /hpf (<5) Urine Bacteria Few /hpf (None Seen) Urine Mucus Few (None Seen) Urine Glucose Normal mg/dL (Normal) Sodium Level 141 mmol/L (136-145) Potassium Level 4.2 mmol/L (3.5-5.1) Chloride Level 114 mmol/L (98-107) Carbon Dioxide Level 20 mmol/L (20-31) Anion Gap 7 (5-15) Blood Urea Nitrogen 19 mg/dL (9-23) Creatinine 0.51 mg/dL (0.550-1.02) Glomerular Filtration Rate Calc 114 mL/min (>90) BUN/Creatinine Ratio 37.3 (10.0-20.0) Serum Glucose 102 mg/dL (74-106) Hemoglobin A1c 5.5 % A1C (<5.7) Calcium Level 9.2 mg/dL (8.7-10.4) Troponin I High Sensitivity 4 ng/L (</=34) Thyroid Stimulating Hormone (TSH) 2.04 uIU/mL (0.55-4.78) White Blood Count 7.2 10^3/uL (4.4-10.8) Red Blood Count 4.61 10^6/uL (4.0-5.20) Hemoglobin 14.9 g/dL (12.2-16.2) Hematocrit 43.2 % (36.0-46.0) Mean Corpuscular Volume 93.6 fL (80.0-100.0) Mean Corpuscular Hemoglobin 32.4 pg (28.0-32.0) Mean Corpuscular Hemoglobin Concent 34.6 g/dL (32.0-36.0) Red Cell Distribution Width 13.2 % (11.8-14.3) Platelet Count 311 10^3/uL (140-450) Mean Platelet Volume 7.4 fL (6.9-10.8) Neutrophils (%) (Auto) 52.5 % (37.0-80.0) Lymphocytes (%) (Auto) 39.4 % (10.0-50.0) Monocytes (%) (Auto) 5.6 % (0.0-12.0) Eosinophils (%) (Auto) 1.5 % (0.0-7.0) Basophils (%) (Auto) 1.0 % (0.0-2.0) Neutrophils # (Auto) 3.8 10 ^3/uL (1.6-8.6) Lymphocytes # (Auto) 2.8 10 ^3/uL (0.4-5.4) Monocytes # (Auto) 0.4 10 ^3/uL (0-1.3) Eosinophils # (Auto) 0.1 10 ^3/uL (0-0.8) Basophils # (Auto) 0.1 10 ^3/uL (0-0.2) Nucleated Red Blood Cells 0.1 % Other Laboratory Tests 03/10/25 01:27 03/09/25 13:07 Brief Hx & Hospital Course: 49-year-old female with a known history of hypertension, peripheral neuropathy, chronic back pain currently on narcotics who initially was seen in Ophthalmology Department as an outpatient for the eye pressure found to have possible papilledema because of uncontrolled high blood pressure was sent to ER. Patient initially said since head CT was negative MRI showed evidence of punctate spots in the brain indicative of microvascular ischemia versus demyelinating disease. Patient was found to have papilledema has been as idiopathic intracranial hypertension started on Diamox and gabapentin. Patient's hospital course was uneventful. Patient is being discharged under stable condition with close follow up as an outpatient with the PCP, Neurology, outpatient follow up with the Ophthalmology miguelito. Diamox prescription has been given. Patient is already has gabapentin at home. Condition at Discharge: Stable Final Diagnosis/Problems List 49-year-old female with a known history of hypertension, peripheral neuropathy, chronic back pain currently on narcotics who initially was seen in Ophthalmology Department as an outpatient for the eye pressure found to have possible papilledema because of uncontrolled high blood pressure was sent to ER. Patient initially said since head CT was negative MRI is pending. 1. Bilateral eye pressure rule out papilledema ruled out acute CVA 2. Hypertensive emergency 3. Peripheral neuropathy 4. Chronic back pain with a recent history of two back surgeries 5. Chronic narcotic dependency 6. Idiopathic intracranial hypertension Discharge Disposition: Home SNF Discharge Will this Physician continue t: No Discharge Instruct/Medications Diet: Cardiac 2g Na,low cholest Activity: See Comment Activity comment: No driving, no signing of legal documents, no planning on machinery while on narcotics Follow Up/Referral: Follow up with the PCP in one week Follow up with Neurology Dr. Martinez in one week Follow up with the Ophthalmology miguelito upon discharge. Medications: As reconciled and prescribed, new prescription as Diamox New Medications: Acetazolamide (Diamox) 250 Mg Tb 500 MG PO Q12HR for 30 Days, #120 TAB Continued Medications: Albuterol Sulfate (Ventolin Mdi) 90 Mcg Ih 90 MCG IN, INH Alprazolam (Alprazolam) 1 Mg Tab 1 TAB PO TID, #90 TAB Cholestyramine (Questran Powder) 4 Gm Pw 4 GM PO BID for 14 Days, #28 POW Dicyclomine Hcl (Bentyl Capsule) 10 Mg Cp 1 CAP PO TID, #90 CAP 11 Refills Docusate Sodium (Colace) 100 Mg Cap 1 CAP PO BID, #60 CAP Duloxetine Hcl (Cymbalta) 60 Mg Cap 1 CAP PO DAILY, #90 CAP 3 Refills Famotidine (Famotidine) 40 Mg Tab 1 TAB PO QHSP PRN Gabapentin (Gabapentin) 600 Mg Tab 1 TAB PO TID, #90 TAB 3 Refills Hctz (Hydrochlorothiazide) 25 Mg Tab 25 MG PO DAILY, TAB Hydrocodone-Acetaminophen (Hydrocodone Bitartrate/AC 10-325 mg) 1 Tab Tab 1 TAB PO QID PRN for PAIN SCALE 7 THRU 10, TAB Losartan Potassium (Losartan Potassium) 100 Mg Tab 100 MG PO DAILY for 30 Days, MG Pantoprazole Sodium Sesquihydr (Protonix) 40 Mg Tab 40 MG PO DAILY for 7 Days, #7 TAB Sennosides-Docusate Sodium (Senokot S) 1 Tab Tab 1 TAB PO BID, #30 TAB Simethicone (Simethicone) 80 Mg Chw 80 MG PO TID, TAB.CHEW Tamsulosin Hcl (Tamsulosin Hcl) 0.4 Mg Cap 1 CAP PO DAILY Tizanidine Hydrochloride (Zanaflex) 4 Mg Cap 6 MG PO TID, CAP Discontinued Medications: Ciprofloxacin Hcl (Cipro) 500 Mg Tab 500 MG PO BID for 7 Days, #14 TAB Scheduled Acetazolamide (Diamox), 500 MG PO Q12HR Alprazolam (Alprazolam), 1 TAB PO TID, (Reported) Cholestyramine (Questran Powder), 4 GM PO BID Ciprofloxacin Hcl (Cipro), 500 MG PO BID Dicyclomine Hcl (Bentyl Capsule), 1 CAP PO TID Docusate Sodium (Colace), 1 CAP PO BID Duloxetine Hcl (Cymbalta), 1 CAP PO DAILY, (Reported) Gabapentin (Gabapentin), 1 TAB PO TID, (Reported) Hctz (Hydrochlorothiazide), 25 MG PO DAILY, (Reported) Losartan Potassium (Losartan Potassium), 100 MG PO DAILY, (Reported) Pantoprazole Sodium Sesquihydr (Protonix), 40 MG PO DAILY Sennosides-Docusate Sodium (Senokot S), 1 TAB PO BID, (Reported) Simethicone (Simethicone), 80 MG PO TID, (Reported) Tamsulosin Hcl (Tamsulosin Hcl), 1 CAP PO DAILY, (Reported) Tizanidine Hydrochloride (Zanaflex), 6 MG PO TID, (Reported) Scheduled PRN Famotidine (Famotidine), 1 TAB PO QHSP PRN, (Reported) Hydrocodone-Acetaminophen (Hydrocodone Bitartrate/AC 10-325 mg), 1 TAB PO QID PRN for PAIN SCALE 7 THRU 10, (Reported) Miscellaneous Medications Albuterol Sulfate (Ventolin Mdi), 90 MCG IN, (Reported) Discontinued Medications Alprazolam (Alprazolam), 1 TAB PO BIDPRN PRN, (Reported) Tizanidine Hydrochloride (Tizanidine Hcl), 4 MG PO TID, (Reported) Discharge Statement: "Patient was advised to return to the ER or call 911 if any headaches, dizziness, shortness of breath, chest pain, abdominal pain, bleeding, fevers, or worsening of medical condition. Patient was counseled about treatment plan, medications, possible side effects, patientverbalized understanding. All questions were answered to the best of my ability. This discharge took greater then 30 minutes in planning, reviewing documentation, counseling the patient, and discussing with other team members." ASSESSMENT ASSESSMENT Assessment 49-year-old female with a known history of hypertension, peripheral neuropathy, chronic back pain currently on narcotics who initially was seen in Ophthalmology Department as an outpatient for the eye pressure found to have possible papilledema because of uncontrolled high blood pressure was sent to ER. Patient initially said since head CT was negative MRI is pending. 1. Bilateral eye pressure rule out papilledema ruled out acute CVA 2. Hypertensive emergency 3. Peripheral neuropathy 4. Chronic back pain with a recent history of two back surgeries 5. Chronic narcotic dependency 6. Idiopathic intracranial hypertension Date of Service: Mar 15, 2025 Billing Provider: JACQUELINE PERDOMO MD Common Visit Codes: [id number] DISCH DAY >30min JACQUELINE PERDOMO MD Mar 15, 2025 17:20
== END 2025-03-15 18:30 | disposition home or self-care (01) | DRG 103 ==
LOC: ER 12:33 → OVERFLOW 23:54 → CENTRAL 03-11 22:39 → EAST 03-12 20:45
PROVIDERS: ADMIT Internal Medicine; ATTEND Internal Medicine
PROC: 009U3ZX Drainage of Spinal Canal, Percutaneous Approach, Diagnostic (ICD-10-PCS; principal; 2025-03-11)
PROC: 05HC33Z Insertion of Infusion Device into Left Basilic Vein, Percutaneous Approach (ICD-10-PCS; 2025-03-11)
PROC: B54NZZA Ultrasonography of Left Upper Extremity Veins, Guidance (ICD-10-PCS; 2025-03-11)
DX: G93.2 Benign intracranial hypertension (principal); I16.1 Hypertensive emergency; H47.10 Unspecified papilledema; F11.20 Opioid dependence, uncomplicated; G62.9 Polyneuropathy, unspecified; G89.29 Other chronic pain; I10 Essential (primary) hypertension; F17.210 Nicotine dependence, cigarettes, uncomplicated; E66.9 Obesity, unspecified; Z68.33 Body mass index [BMI] 33.0-33.9, adult; Z90.49 Acquired absence of other specified parts of digestive tract; Z90.710 Acquired absence of both cervix and uterus; Z98.51 Tubal ligation status; Z83.3 Family history of diabetes mellitus; Z82.49 Family history of ischemic heart disease and other diseases of the circulatory system; Z79.899 Other long term (current) drug therapy
CPT/HCPCS: 36415; 62272; 70450; 70540; 70545; 80048; 81001; 82945; 83036; 84157; 84443; 84484; 85025; 89051; 93005; 93306; 96372; 96374; 96375; 99152; G0378; J1100; J2250; J2405; J7060

== ENCOUNTER 2025-04-12 10:14 | Inpatient (IN) | payer OTHER, MEDICAID ==
[~2025-04-12] VITALS: Ht 149.9 cm; Wt 75.9 kg
[~2025-04-12 10:14] MED LIST changes: +ACE250T PO; +ALBUAER3 IN; -ALPR0.255 PO; +ALPR1TAB7 PO; -CIPR-173 PO; +SIME80CH49 PO; -TIZA-142 PO; +TIZA4CAP PO
--- NOTE | 2025-04-12 10:41 | ED.PDOC ---
General HPI Comments Miri Franco is a 49-year-old female with past medical history of Hypertension, peripheral neuropathy, chronic back pain, spinal fusion, vaginal prolapse, recurrent UTI. The patient came to the ED with chief complain of 4 days of dysuria and noticing turbid urine; associated with chills and malaise. The patient reports she was taking nitrofurantoin that was prescribed by PCP due to UTI, the patient report she complete the antibiotic course but the symptoms persist. Today, she started feeling right flank pain /, sharp, colicky, that irradiates to the right inguinal area, also she start presenting nausea and epigastric pain 01/20. this prompted her visit to the ED. Chief Complaint: Flank Pain Time Seen by MD: 10:23 Primary Care Provider: DR ROCK Reviewed notes: Nurses Notes, Medications, Allergies Allergies: Coded Allergies: NO KNOWN ALLERGIES (Unverified , 05/10/14) Home Meds Active Scripts Acetazolamide (Diamox) 250 Mg Tb, 500 MG PO Q12HR for 30 Days, #120 TAB Prov:JACQUELINE PERDOMO MD 03/15/25 Cholestyramine (QUESTRAN POWDER) 4 Gm Pw, 4 GM PO BID for 14 Days, #28 POW Prov:STEVAN VERAS MD 10/02/24 Dicyclomine Hcl (BENTYL CAPSULE) 10 Mg Cp, 1 CAP PO TID, #90 CAP 11 Refills Prov:NICHO COELLO 01/05/24 Docusate Sodium (Colace) 100 Mg Cap, 1 CAP PO BID, #60 CAP Prov:STEVAN VERAS MD 10/28/23 Pantoprazole Sodium Sesquihydr (Protonix) 40 Mg Tab, 40 MG PO DAILY for 7 Days, #7 TAB Prov:CHANTAL STEWART MD 10/14/23 Reported Medications Simethicone (Simethicone) 80 Mg Chw, 80 MG PO TID, TAB.CHEW 03/12/25 Albuterol Sulfate (VENTOLIN MDI) 90 Mcg Ih, 90 MCG IN, INH 03/12/25 Alprazolam (Alprazolam) 1 Mg Tab, 1 TAB PO TID, #90 TAB 03/12/25 Tizanidine Hydrochloride (Zanaflex) 4 Mg Cap, 6 MG PO TID, CAP 03/12/25 Hydrocodone-Acetaminophen (Hydrocodone Bitartrate/AC 10-325 mg) 1 Tab Tab, 1 TAB PO QID PRN for PAIN SCALE 7 THRU 10, TAB 09/25/24 Hctz (Hydrochlorothiazide) 25 Mg Tab, 25 MG PO DAILY, TAB 09/25/24 Losartan Potassium (Losartan Potassium) 100 Mg Tab, 100 MG PO DAILY for 30 Days, MG 09/25/24 Famotidine (Famotidine) 40 Mg Tab, 1 TAB PO QHSP PRN 08/07/24 Tamsulosin Hcl (Tamsulosin Hcl) 0.4 Mg Cap, 1 CAP PO DAILY 08/07/24 Duloxetine Hcl (Cymbalta) 60 Mg Cap, 1 CAP PO DAILY, #90 CAP 3 Refills 01/30/24 Sennosides-Docusate Sodium (Senokot S) 1 Tab Tab, 1 TAB PO BID, #30 TAB 10/14/23 Gabapentin (Gabapentin) 600 Mg Tab, 1 TAB PO TID, #90 TAB 3 Refills 10/14/23 Information Source: Patient Mode of Arrival: Ambulatory Severity: Mild Timing: Days Duration: Since onset Symptoms: Dysuria History of: UTI, Other (uterine proplapse) Location: (R) Flank associated signs and symptoms: Other (chills, malaise. ) Past Medical History PAST MEDICAL HISTORY: HTN Past Medical History (Other): Peripheral neuropathy due to back injury Surgical History: Cholecystectomy, Hernia Repair, Hysterectomy, Tubal Ligation Surgical History (Other): Back surgery, spinal fusion [employer] History: Denies all [employer] Hx, Other Family History Family History: Reviewed,noncontributory to illness Social History Smoker: Cigarettes Alcohol: Denies ETOH Use Drugs: Denies Drug Use Lives In: Home Constitutional: reports: chills, malaise; denies: diaphoresis, fatigue, fever, sweats, weakness, others EENTM: denies: blurred vision, double vision, ear bleeding, ear discharge, ear drainage, ear pain, ear ringing, eye pain, eye redness, hearing loss, mouth pain, mouth swelling, nasal discharge, nose bleeding, nose congestion, nose pain, photophobia, tearing, throat pain, throat swelling, voice changes, others Respiratory: denies: cough, hemoptysis, orthopnea, SOB at rest, shortness of breath, SOB with excertion, stridor, wheezing, others Cardiovascular: denies: chest pain, dizzy spells, diaphoresis, Dyspnea on exertion, edema, irregular heart beat, left arm pain, lightheadedness, palpitations, PND, syncope, others Gastrointestinal: denies: abdomen distended, abdominal pain, blood streaked bowels, constipated, diarrhea, dysphagia, difficulty swallowing, hematemesis, melena, nausea, poor appetite, poor fluid intake, rectal bleeding, rectal pain, vomiting, others Genitourinary: reports: dysuria, flank pain Neurological: denies: dizziness, fainting, headache, left sided numbness, left sided weakness, numbness, paresthesia, pre-existing deficit, right sided numbness, right sided weakness, seizure, speech problems, tingling, tremors, weakness, others Musculoskeletal: denies: back pain, gout, joint pain, joint swelling, muscle pain, muscle stiffness, neck pain, others Integumetry: denies: bruises, change in color, change in hair/nails, dryness, laceration, lesions, lumps, rash, wounds, others Allergic/Immunocompromised: denies: Difficulty Healing, Frequent Infections, Hives, Itching, others Hematologic/Lymphatic: denies: anemia, blood clots, easy bleeding, easy bruising, swollen glands, others Endocrine: denies: excessive hunger, excessive sweating, excessive thirst, excessive urination, flushing, intolerance to cold, intolerance to heat, unexplained weight gain, unexplained weight loss, others Psychiatric: denies: anxiety, bipolar disorder, depression, hopeless, panic disorder, schizophrenia, sleepless, suicidal, others Physical Exam General Appearance: No Apparent Distress, Normal HEENT: Normal ENT Inspection, Pharynx Normal, TMs Normal Neck: Full Range of Motion, Non-Tender, Normal, Normal Inspection Respiratory: Chest Non-Tender, Lungs Clear, No Accessory Muscle Use, No Respiratory Distress, Normal Breath Sounds Cardiovascular: No Edema, No JVD, No Murmur, No Gallop, Normal Peripheral Pulses, Regular Rate/Rhythm Breast Exam: Deferred Gastrointestinal: No Organomegaly, No Pulsatile Mass, Normal Bowel Sounds, S oft, Tenderness (epigastric tenderness to palpation ) Genitalia: Other (suprapubic tenderness, tenderness on right costovertebral angle ), Deferred Pelvic: Deferred Rectal: Deferred Extremities: No calf tenderness, Normal capillary refill, Normal inspection, Normal range of motion, Non-tender, No pedal edema Neurologic: Alert, receiving room clerk II-XII nml as Tested, No Motor Deficits, Normal Affect, Normal Mood, No Sensory Deficits Cerebellar Function: Normal Reflexes: Normal Skin: Dry, Normal Color, Warm Lymphatic: No Adenopathy Was a procedure done? Was a procedure done?: No Differential Diagnosis Kidney stone (Female): Other (kidney stone) Urinary Problem (Male): Urethritis, Urolithiasis, UTI Other Differential Diagnosis PO intolerance X-Ray, Labs, Meds, VS Vital Signs Date Time Temp Pulse Resp B/P (MAP) Pulse Ox O2 Delivery O2 Flow Rate FiO2 04/12/25 19:52 78 20 144/74 04/12/25 19:22 105 18 167/126 04/12/25 18:00 113 38 153/109 (124) 98 04/12/25 17:00 106 22 176/108 (130) 04/12/25 16:00 107 21 141/96 (111) 96 04/12/25 15:00 106 22 176/108 (130) 98 04/12/25 14:57 105 26 169/102 04/12/25 14:27 105 26 169/102 04/12/25 14:00 100 13 165/100 (121) 99 04/12/25 13:30 92 17 157/94 (115) 99 04/12/25 13:00 82 16 153/84 (107) 99 04/12/25 12:45 152/102 04/12/25 12:40 76 16 152/102 (119) 97 04/12/25 12:27 74 19 174/99 (124) 97 04/12/25 12:10 75 29 97 Room Air* 0 21 04/12/25 12:05 97.8 75 29 174/102 (126) 97 97.8 04/12/25 11:01 97.8 87 16 159/103 (121) 96 97.8 04/12/25 11:01 87 16 96 Room Air* 0 21 04/12/25 10:15 97.8 84 19 153/100 99 97.8 Lab Test 04/12/25 10:48 04/12/25 10:45 Range/Units Urine Color Colorless Yellow Urine Clarity Clear Clear Urine pH 6.0 5.0-9.0 Urine Specific [place] 1.009 1.001-1.035 Urine Protein Negative Negative Urine Ketones Negative Negative Urine Blood Trace H Negative /uL Urine Nitrite Negative Negative Urine Bilirubin Negative Negative Urine Urobilinogen Normal Negative mg/dL Urine Leukocyte Esterase Negative Negative /uL Urine RBC 2 0 - 4 /hpf Urine Microscopic WBC 1 0-5 /HPF Urine Squamous Epithelial Cells Few <5 /hpf Urine Bacteria None seen None Seen /hpf Urine Glucose Normal Normal mg/dL Urine Opiates Screen Pending Urine Fentanyl Screen Pending Urine Barbiturates Screen Pending Urine Phencyclidine Screen Pending Urine Amphetamines Screen Pending Urine Benzodiazepines Screen Pending Urine Cocaine Screen Pending Urine Cannabinoids Screen Pending White Blood Count 9.5 4.4-10.8 10^3/uL Red Blood Count 5.00 4.0-5.20 10^6/uL Hemoglobin 15.6 12.2-16.2 g/dL Hematocrit 46.1 H 36.0-46.0 % Mean Corpuscular Volume 92.2 80.0-100.0 fL Mean Corpuscular Hemoglobin 31.2 28.0-32.0 pg Mean Corpuscular Hemoglobin Concent 33.8 32.0-36.0 g/dL Red Cell Distribution Width 12.8 11.8-14.3 % Platelet Count 383 140-450 10^3/uL Mean Platelet Volume 7.6 6.9-10.8 fL Neutrophils (%) (Auto) 50.3 37.0-80.0 % Lymphocytes (%) (Auto) 40.4 10.0-50.0 % Monocytes (%) (Auto) 6.5 0.0-12.0 % Eosinophils (%) (Auto) 2.0 0.0-7.0 % Basophils (%) (Auto) 0.8 0.0-2.0 % Neutrophils # (Auto) 4.8 1.6-8.6 10 ^3/uL Lymphocytes # (Auto) 3.8 0.4-5.4 10 ^3/uL Monocytes # (Auto) 0.6 0-1.3 10 ^3/uL Eosinophils # (Auto) 0.2 0-0.8 10 ^3/uL Basophils # (Auto) 0.1 0-0.2 10 ^3/uL Nucleated Red Blood Cells 0.0 % Sodium Level 142 136-145 mmol/L Potassium Level 4.2 3.5-5.1 mmol/L Chloride Level 112 H 98-107 mmol/L Carbon Dioxide Level 21 20-31 mmol/L Anion Gap 9 5-15 Blood Urea Nitrogen 16 9-23 mg/dL Creatinine 0.69 0.550-1.02 mg/dL Glomerular Filtration Rate Calc 106 >90 mL/min BUN/Creatinine Ratio 23.2 H 10.0-20.0 Serum Glucose 96 74-106 mg/dL Hemoglobin A1c 5.6 <5.7 % A1C Calcium Level 9.6 8.7-10.4 mg/dL Vitamin B12 Level 326 211-911 pg/mL Vitamin D 25-Hydroxy 30.8 30.0-100 ng/mL Thyroid Stimulating Hormone (TSH) 0.88 0.55-4.78 uIU/mL Current Medications Medications (Trade) Dose Ordered Sig/Pedro Route Start Time Stop Time Status Last Admin Hydralazine HCl (Apresoline Injection) 10 mg ONCE ONCE IV 04/12/25 11:30 04/12/25 11:31 DC 04/12/25 12:45 Ondansetron HCl (Zofran) 4 mg ONCE ONCE IV 04/12/25 14:15 04/12/25 14:16 DC 04/12/25 14:27 Morphine Sulfate 2 mg ONCE ONCE IV 04/12/25 14:15 04/12/25 14:16 DC 04/12/25 14:27 Lorazepam (Ativan Inj) 1 mg ONCE ONCE IV 04/12/25 15:15 04/12/25 15:16 DC 04/12/25 15:12 Ondansetron HCl (Zofran) 4 mg ONCE ONCE IV 04/12/25 18:15 04/12/25 18:16 DC 04/12/25 18:15 Metoclopramide HCl (Reglan Injection) 10 mg ONCE ONCE IV 04/12/25 19:15 04/12/25 19:16 DC 04/12/25 19:20 Morphine Sulfate 2 mg ONCE ONCE IV 04/12/25 19:15 04/12/25 19:16 DC 04/12/25 19:22 X-Ray, Labs, Meds, VS Comment The patient has been re-evaluated. The patient reports worsen epigastric pain and new start of nausea and vomit #2. UA: negative BP is 176/108mmhg despite blood pressure medications. CT abd/pel has been ordered The patient will be admitted for further assessment and management Time of 1ST Reevaluation: 17:46 Reevaluation 1ST: Unchanged Patient Education/Counseling: Diagnosis, Treatment, Prognosis, Need For Follow Up Family Education/Counseling: No Family Present SEPSIS Sepsis Screen Date sepsis recognized/suspect: Apr 12, 2025 Time Sepsis recognized/suspect: 1014 Recent Procedure: No On Antibiotic Therapy: No Respiratory Rate >20: No Heart Rate >90: No Temp<36 C (96.8 F) or >38.3 C: No SBP <90 or MAP <65 mmHG: No New Acute Mental Status Change: No Is the patient on CPAP, BIPAP,: No Physician Orders Insert Midline (04/12/25 12:21) Change Midline Dressing Q7 Day QWEEKLY (04/12/25 12:21) Ct Ab Pel Wo Con-No Oral Or Iv (04/12/25 17:39) Vital Signs Date Time Temp Pulse Resp B/P (MAP) Pulse Ox O2 Delivery O2 Flow Rate FiO2 04/12/25 19:52 78 20 144/74 04/12/25 19:22 105 18 167/126 04/12/25 18:00 113 38 153/109 (124) 98 04/12/25 17:00 106 22 176/108 (130) 04/12/25 16:00 107 21 141/96 (111) 96 04/12/25 15:00 106 22 176/108 (130) 98 04/12/25 14:57 105 26 169/102 04/12/25 14:27 105 26 169/102 04/12/25 14:00 100 13 165/100 (121) 99 04/12/25 13:30 92 17 157/94 (115) 99 04/12/25 13:00 82 16 153/84 (107) 99 04/12/25 12:45 152/102 04/12/25 12:40 76 16 152/102 (119) 97 04/12/25 12:27 74 19 174/99 (124) 97 04/12/25 12:10 75 29 97 Room Air* 0 21 04/12/25 12:05 97.8 75 29 174/102 (126) 97 97.8 04/12/25 11:01 97.8 87 16 159/103 (121) 96 97.8 04/12/25 11:01 87 16 96 Room Air* 0 21 04/12/25 10:15 97.8 84 19 153/100 99 97.8 Laboratory Tests Test 04/12/25 10:45 White Blood Count 9.5 10^3/uL (4.4-10.8) Medications Medications Dose Ordered Sig/Pedro Route Start Time Stop Time Status Last Admin Dose Admin Hydralazine HCl 10 mg ONCE ONCE IV 04/12/25 11:30 04/12/25 11:31 DC 04/12/25 12:45 Lorazepam 1 mg ONCE ONCE IV 04/12/25 15:15 04/12/25 15:16 DC 04/12/25 15:12 Metoclopramide HCl 10 mg ONCE ONCE IV 04/12/25 19:15 04/12/25 19:16 DC 04/12/25 19:20 Morphine Sulfate 2 mg ONCE ONCE IV 04/12/25 14:15 04/12/25 14:16 DC 04/12/25 14:27 Morphine Sulfate 2 mg ONCE ONCE IV 04/12/25 19:15 04/12/25 19:16 DC 04/12/25 19:22 Ondansetron HCl 4 mg ONCE ONCE IV 04/12/25 14:15 04/12/25 14:16 DC 04/12/25 14:27 Ondansetron HCl 4 mg ONCE ONCE IV 04/12/25 18:15 04/12/25 18:16 DC 04/12/25 18:15 Departure 1 Departure Time of Disposition: 18:08 Impression: Primary Impression: Uncontrolled hypertension Additional Impression: Acute abdominal pain Disposition: ADMITTED INPATIENT Admit to: Med Surg Condition: Good Comments Goals of care discussed with the patient > 35 min. Discussed plan of care with Dr. Stewart Code status: Full code PCP: Dr. Brown Plan discussed with: Patient, the patient agrees with the admission plan. Critical Care Note Critical Care Time?: No Stability Stability form required: No Heart Score Heart Score: Heart Score Response (Comments) Value History N/A 0 EKG N/A 0 Age N/A 0 Risk Factors N/A 0 Troponin N/A 0 Total 0 LEOPOLDO RIVERA RESIDENT Apr 12, 2025 10:41
[2025-04-12 11:01] VITALS: PULSE 87; RESP 16; O2SAT 96
[2025-04-12 11:10] LABS: Hematocrit 46.1 % (36.0-46.0); Hemoglobin 15.6 g/dL (12.2-16.2); Mean Corpuscular Hemoglobin 31.2 pg (28.0-32.0); Mean Corpuscular Volume 92.2 fL (80.0-100.0); Nucleated Red Blood Cells % 0.0 %
[2025-04-12 11:19] LABS: Potassium 4.2 mmol/L (3.5-5.1); Sodium 142 mmol/L (136-145)
[2025-04-12 11:20] LABS: Anion Gap 9 (5-15); Calcium 9.6 mg/dL (8.7-10.4); Carbon Dioxide 21 mmol/L (20-31)
[2025-04-12 11:25] LABS: BUN/Creatinine Ratio 23.2 (10.0-20.0); Blood Urea Nitrogen 16 mg/dL (9-23); Glucose 96 mg/dL (74-106)
[2025-04-12 11:30] LABS: Chloride 112 mmol/L (98-107)
[2025-04-12 11:32] LABS: Urine Protein, UAD Negative (Negative)
[2025-04-12 12:10] VITALS: PULSE 75; RESP 29; O2SAT 97
[2025-04-12] MEDS: hydrALAZINE HCL 20 MG/ML VL IV ONE (12:45)
[2025-04-12] MEDS ORDERED: MORPHINE SULFATE INJ 2 MG/ml SYRG IV ONE (14:15)
[2025-04-12] MEDS: ONDANSETRON HCL 4 MG/2 ML VIAL IV ONE ×2 (14:27→18:15)
[2025-04-12] MEDS: MORPHINE SULFATE 4 MG/ML SYR/VIAL IV ONE (14:27)
[2025-04-12] MEDS: HYDROcodone-ACET 10/325MG TAB PO ONE (14:52)
[2025-04-12] MEDS: LORazepam 2MG/ML-1ML VIAL IV ONE (15:12)
[2025-04-12] MEDS: ALPRAZolam 0.5 MG TAB PO ONE (15:18)
[2025-04-12] MEDS: METOCLOPRAMIDE HCL 5MG/ml INJ 2ml VIAL IV ONE (19:20)
[2025-04-12] MEDS: MORPHINE SULFATE 4 MG/ML SYR/VIAL ONE (19:20)
[2025-04-12] MEDS: MORPHINE SULFATE INJ 2 MG/ml SYRG IV ONE (19:22)
--- NOTE | 2025-04-12 20:08 | DVH ---
Exam: CT CT AB PEL WO CON-NO ORAL OR IV History: Abdominal pain Comparison Study: CT CT AB PEL WO CON-NO ORAL OR IV on DOS: 11/01/24, CT CT AB PEL WO CON-NO ORAL OR I V on DOS: 09/25/24, CT CT AB PEL WO CON-NO ORAL OR IV on DOS: 08/07/24, CT CT AB PEL WO CON-NO ORAL OR IV on DOS: 07/28/24, CT CT AB PEL WO CON-NO ORAL OR IV on DOS: 07/12/24 TECHNIQUE: Multidetector CT of the abdomen and pelvis was performed from lung bases to pubic symphysi s. Imaging was performed without IV contrast. Axial, coronal, and sagittal multiplanar reformats were obtained from the axial data set by the technologist. RADIATION DOSE: CTDI vol 11.77 mGy. DLP 609.7 mGy.cm Findings: Limited evaluation of the solid organs in the absence of IV contrast. Lungs: There is basilar atelectasis/scarring. Liver: Redemonstrated hepatic cysts and additional too small to characterize hepatic lesions. Spleen: Unremarkable. Pancreas: Unremarkable. Gallbladder: Prior cholecystectomy. Adrenals: Unremarkable Kidneys: Punctate nonobstructing right nephrolithiasis. No hydronephrosis. Pelvic Viscera: Prior hysterectomy. Vasculature: Mild atherosclerotic vascular calcifications. Retroperitoneum: Unremarkable. Bowel: Colonic diverticulosis without CT evidence of diverticulitis. Postsurgical changes about the b owel. No bowel obstruction. Small hiatal hernia. Musculoskeletal: Posterior fusion hardware spans L4-5. Associated streak artifact degrades evaluation . Soft tissues: Small fat containing ventral abdominal wall hernia. Impression: 1. No acute abdominopelvic abnormality. 2. Incidental findings as detailed.
[2025-04-12 20:31] VITALS: PULSE 78; RESP 20; O2SAT 97
[2025-04-12] MEDS: SODIUM CHLORIDE 0.9% 1,000 ML IV SCH (21:00)
[2025-04-12] MEDS: SODIUM CHLORIDE 0.9% 1,000 ML IV ONE (21:00)
[2025-04-12] MEDS: PANTOPRAZOLE 40 MG/10 ML VIAL INJ IV ONE (21:15)
[2025-04-12] MEDS: PIPERACILLIN-TAZOB 3.375GM 100 ML IV ONE (21:30)
--- NOTE | 2025-04-12 21:43 | DVHHPRES ---
History of Present Illness Resident Creating Document: ELÍAS CYR RESIDENT History of Present Illness Miri Schmitz is a 49-year-old female patient who presents to ED with chief complaint of nausea, vomiting with emesis that we initially was foamy then green and finally brown and yellow diarrhea (> five episodes a day), associated with dysuria, foul-smelling urine, pollakiuria, right flank pain which radiates towards epigastrium and headaches. She has describes that all these symptoms started a proximally on (04/07/2025) and got progressively worse, prompting her visit to the ED. patient reports relevant history of IBS, small- bowel obstruction in 2022 with resection of small and large intestine ( in each) requiring colostomy bag with posterior repair in 2023. She also reports history of C diff colitis. Patient was evaluated in ED, initially was going to be discharged home, but finally was admitted since her symptoms continued. Denies any other associated symptoms Past medical history: Hypertension, hypothyroidism, bradycardia, papilledema, IBS, small-bowel obstruction probably secondary to opiates status post resection of small and large intestine, previous admission due to C diff colitis Surgical history: Cholecystectomy, bilateral tubal ligation, appendectomy, spinal surgery in two opportunities, 09/2022 resection of4 in of large and small intestine with colostomy bag placed until repair in 10/2023, hernia repair, unilateral oophorectomy and hysterectomy due to endometriosis Family history mother had heart disease Social history: Lives in [place] with family (next of kin is her daughter). Occasionally smokes marijuana. Denies current tobacco, alcohol and other drug abuse. Allergies: Denies Home medication: [place], Diamox, albuterol, alprazolam, Questran, Bentyl, docusate, duloxetine, gabapentin, hydrochlorothiazide, losartan, pantoprazole, simethicone, tamsulosin, tizanidine Patient seen and examined at bedside. Currently has no new complaints. Past Medical History Per HPI Past Surgical History Per HPI Family History Per HPI Past Social History Per HPI Review of Systems Allergies: Coded Allergies: NO KNOWN ALLERGIES (Unverified , 05/10/14) Medications Current Medications Medications Dose Ordered Sig/Pedro Route Start Time Stop Time Status Last Admin Dose Admin Acetaminophen 325 mg Q4HP PRN PO 04/12/25 20:30 Ondansetron HCl 4 mg Q4HP PRN IV 04/12/25 20:30 Morphine Sulfate 2 mg Q4HPRN PRN IV 04/12/25 20:30 Piperacillin Sod/ Tazobactam Sod 100 ml @ 25 mls/hr Q8HR IV 04/13/25 06:00 Sodium Chloride 1,000 ml @ 75 mls/hr [id number] IV 04/12/25 21:00 Acetazolamide 500 mg Q12HR PO 04/12/25 22:00 Cholestyramine Resin 4 gm BID PO 04/12/25 22:00 Dicyclomine HCl 20 mg TID PO 04/12/25 22:00 Hydrochlorothiazide 25 mg DAILY PO 04/13/25 10:00 Tamsulosin HCl 0.4 mg QPM PO 04/13/25 18:00 Duloxetine HCl 60 mg DAILY PO 04/13/25 10:00 Gabapentin 600 mg TID PO 04/12/25 22:00 Losartan Potassium 100 mg DAILY PO 04/13/25 10:00 Pantoprazole Sodium 40 mg DAILY IV 04/13/25 10:00 Exam Vital Signs Vital Signs Date Time Temp Pulse Resp B/P (MAP) Pulse Ox O2 Delivery O2 Flow Rate FiO2 04/12/25 20:31 78 20 97 Room Air* 0 21 04/12/25 20:31 98.1 144/78 (100) 98.1 Exam Patient lying in bed, in no acute distress General: Lucid, afebrile, mucosae are moist Cardiovascular: Normal S1 and S2. No murmurs, gallops or rubs Respiratory: Normal ventilation mechanics. Clear lung sounds on auscultation Abdomen: Soft, tenderness in right flank and epigastrium and superficial palpation rest of abdomen nontender, no organomegaly, normal bowel sounds MSK/skin: Mobilizes 4 limbs. Skin is dry and warm Neurological: Oriented in 3 spheres. No motor no sensitive deficits. Pupils are isocoric and reactive Labs/Xrays Labs Test 04/12/25 21:15 04/12/25 10:48 04/12/25 10:45 Range/Units Urine Color Colorless Yellow Urine Clarity Clear Clear Urine pH 6.0 5.0-9.0 Urine Specific [place] 1.009 1.001-1.035 Urine Protein Negative Negative Urine Ketones Negative Negative Urine Blood Trace H Negative /uL Urine Nitrite Negative Negative Urine Bilirubin Negative Negative Urine Urobilinogen Normal Negative mg/dL Urine Leukocyte Esterase Negative Negative /uL Urine RBC 2 0 - 4 /hpf Urine Microscopic WBC 1 0-5 /HPF Urine Squamous Epithelial Cells Few <5 /hpf Urine Bacteria None seen None Seen /hpf Urine Glucose Normal Normal mg/dL Eosinophils (%) (Auto) 2.0 0.0-7.0 % Eosinophils # (Auto) 0.2 0-0.8 10 ^3/uL Basophils # (Auto) 0.1 0-0.2 10 ^3/uL Nucleated Red Blood Cells 0.0 % Vitamin B12 Level 326 211-911 pg/mL Thyroid Stimulating Hormone (TSH) 0.88 0.55-4.78 uIU/mL SEPSIS Sepsis Screen Date sepsis recognized/suspect: Apr 12, 2025 Time Sepsis recognized/suspect: 2034 Recent Procedure: No On Antibiotic Therapy: No Respiratory Rate >20: No Heart Rate >90: No Temp<36 C (96.8 F) or >38.3 C: No SBP <90 or MAP <65 mmHG: No New Acute Mental Status Change: No Is the patient on CPAP, BIPAP,: No Physician Orders Ct Ab Pel Wo Con-No Oral Or Iv (04/12/25 17:39) Admit (04/12/25 20:19) Code Status (04/12/25 20:19) Acetaminophen Tablet (Tylenol Tablet) (04/12/25 20:30) Ondansetron Hcl (Zofran) (04/12/25 20:30) Complete Blood Count (04/13/25 04:00) Comprehensive Metabolic Panel (04/13/25 04:00) Npo (Nothing By Mouth) Diet (04/13/25 Breakfast) Echo 2d Mode Cardiac Dop (04/12/25 20:19) Oxygen By Nasal Cannula (04/12/25 20:19) Stat Ekg For Chest Pain (04/12/25 20:19) Notify Md Of Changes From Base (04/12/25 20:19) Rags Laborer For 24 Hours (04/12/25 20:19) Emergency Dysrhythmia Protocol (04/12/25 20:19) Rhythm Strips Once Every Shift (04/12/25 20:19) Morphine Sulfate Injection (04/12/25 20:30) Complete Blood Count (04/12/25 20:57) Comprehensive Metabolic Panel (04/12/25 20:57) Hemoglobin A1c (04/12/25 20:57) Drug Screen (04/12/25 20:57) Lactic Acid W/ Reflex Order (04/12/25 20:57) Lipid Panel (04/12/25 20:57) Lipase (04/12/25 20:57) Magnesium (04/12/25 20:57) Phosphorus (04/12/25 20:57) PTPTT (04/12/25 20:57) Vitamin D, 25-Hydroxy (04/12/25 20:57) Sodium Chloride 0.9% (04/12/25 21:00) Sodium Chloride 0.9% (04/12/25 21:00) Acetazolamide Tablet (Diamox Tablet) (04/12/25 22:00) Cholestyramine Powder (Questran Powder) (04/12/25 22:00) Dicyclomine Capsule (Bentyl Capsule) (04/12/25 22:00) Hydrochlorothiazide Tablet (Hydrochlorot (04/13/25 10:00) Tamsulosin Hydrochloride (Flomax) (04/13/25 18:00) Duloxetine Hcl Capsule (Cymbalta Capsule (04/13/25 10:00) Gabapentin Capsule (Neurontin Capsule) (04/12/25 22:00) Losartan Tablet (Cozaar Tablet) (04/13/25 10:00) Pantoprazole (Protonix) (04/13/25 10:00) Piperacillin-Tazob 3.375gm (Zosyn 3.375g (04/12/25 21:30) Piperacillin-Tazob 3.375gm (Zosyn 3.375g (04/13/25 06:00) Stool Wbc (04/12/25 21:37) Stool Bacterial Culture (04/12/25 21:37) Stool Occult Blood (04/12/25 21:37) Clostridium Difficile Toxin (04/12/25 21:37) Blood Culture (04/12/25 21:37) Urine Bacterial Culture (04/12/25 21:37) Chest Xray 1 View (04/12/25 21:37) Abdomen Complete Sonogram (04/12/25 21:37) Vital Signs Date Time Temp Pulse Resp B/P (MAP) Pulse Ox O2 Delivery O2 Flow Rate FiO2 04/12/25 20:31 78 20 97 Room Air* 0 21 04/12/25 20:31 98.1 72 20 144/78 (100) 97 98.1 04/12/25 19:52 78 20 144/74 04/12/25 19:22 105 18 167/126 04/12/25 18:00 113 38 153/109 (124) 98 04/12/25 17:00 106 22 176/108 (130) 04/12/25 16:00 107 21 141/96 (111) 96 04/12/25 15:00 106 22 176/108 (130) 98 04/12/25 14:57 105 26 169/102 04/12/25 14:27 105 26 169/102 04/12/25 14:00 100 13 165/100 (121) 99 Laboratory Tests Test 04/12/25 10:45 04/12/25 21:15 White Blood Count 9.5 10^3/uL (4.4-10.8) Pending Lactic Acid Level Pending Medications Medications Dose Ordered Sig/Pedro Route Start Time Stop Time Status Last Admin Dose Admin Hydralazine HCl 10 mg ONCE ONCE IV 04/12/25 11:30 04/12/25 11:31 DC 04/12/25 12:45 10 MG Lorazepam 1 mg ONCE ONCE IV 04/12/25 15:15 04/12/25 15:16 DC 04/12/25 15:12 1 MG Metoclopramide HCl 10 mg ONCE ONCE IV 04/12/25 19:15 04/12/25 19:16 DC 04/12/25 19:20 10 MG Morphine Sulfate 2 mg ONCE ONCE IV 04/12/25 14:15 04/12/25 14:16 DC 04/12/25 14:27 2 MG Morphine Sulfate 2 mg ONCE ONCE IV 04/12/25 19:15 04/12/25 19:16 DC 04/12/25 19:22 2 MG Ondansetron HCl 4 mg ONCE ONCE IV 04/12/25 14:15 04/12/25 14:16 DC 04/12/25 14:27 4 MG Ondansetron HCl 4 mg ONCE ONCE IV 04/12/25 18:15 04/12/25 18:16 DC 04/12/25 18:15 4 MG Assessment/Plan Assessment/Plan Sepsis probably secondary to gastroenteritis/colitis Esophagitis/gastritis Hiatal hernia Ruled out nephrolithiasis and UTI Ruled out choledocholithiasis History of small-bowel obstruction status post small and large intestine resection IBS Completed abdomen and pelvis CT which showed no acute finding Patient completed EGD and colonoscopy on 01/2024 which showed hiatal hernia, slightly irregular, columnar junction with minimal grade a esophagitis and colonoscopy was normal Patient has history of C diff colitis. Have ordered C diff and stool culture and white blood cells. Ordered panculture (blood, urine, sputum and stool) Currently under empiric IV antibiotic (metronidazole and ceftriaxone) Ordered liver ultrasound which ruled out dilation of common bile duct. She is status post cholecystectomy Intractable headache, questionable migraine Papilledema Patient has no history of a thorough sclerosis, indicated sumatriptan which responded. Completed head CT which showed no intracranial pathology Patient should follow up with neurologist (Dr. Martinez) as outpatient Hypothyroidism Bradycardia probably secondary to hypothyroidism Patient is not on levothyroxine Ordered TSH Currently patient is tachycardic due to sepsis History of unilateral oophorectomy and hysterectomy No current complaint Chronic back pain - status post up in two opportunities Indicated pain management and lidocaine patch Patient says that her headaches worsens with opiates. Recommend to avoid opiates at this point Goals of care discussed with patient for over18 minutes: Full code status Discussed case with Dr. Romero, patient and nurses: Admitted patient due to sepsis, currently on IV fluids and empiric IV antibiotic, pending cultures. Patient has history of C diff colitis, she is currently on metronidazole and ceftriaxone. Patient has poor prognosis. Plan discussed with: Patient, Other (Nurses) My Orders Orders - ELÍAS CYR RESIDENT Procedure Category Date Status Time Admit ADMIT 04/12/25 Transmitted 20:19 Code Status CODE 04/12/25 Transmitted 20:19 Acetaminophen Tablet PHA 04/12/25 In Process (Tylenol Tablet) 20:30 Ondansetron Hcl PHA 04/12/25 In Process (Zofran) 20:30 Complete Blood Count LAB 04/13/25 Verified 04:00 Comprehensive LAB 04/13/25 Verified Metabolic Panel 04:00 Npo (Nothing By DIET 04/13/25 Transmitted Mouth) Diet Breakfast Echo 2d Mode Cardiac US 04/12/25 Logged DOP 20:19 Oxygen By Nasal RT 04/12/25 Transmitted Cannula 20:19 Stat Ekg For Chest JUAN LUIS 04/12/25 In Process Pain 20:19 Notify Md Of Changes JUAN LUIS 04/12/25 In Process From Base 20:19 Rags Laborer For JUAN LUIS 04/12/25 In Process 24 Hours 20:19 Emergency Dysrhythmia JUAN LUIS 04/12/25 In Process Protocol 20:19 Rhythm Strips Once JUAN LUIS 04/12/25 In Process Every Shift 20:19 Morphine Sulfate PHA 04/12/25 In Process Injection 20:30 Complete Blood Count LAB 04/12/25 In Process 20:57 Comprehensive LAB 04/12/25 In Process Metabolic Panel 20:57 Hemoglobin A1c LAB 04/12/25 In Process 20:57 Drug Screen LAB 04/12/25 Logged 20:57 Lactic Acid W/ Reflex LAB 04/12/25 In Process Order 20:57 Lipid Panel LAB 04/12/25 In Process 20:57 Lipase LAB 04/12/25 In Process 20:57 Magnesium LAB 04/12/25 In Process 20:57 Phosphorus LAB 04/12/25 In Process 20:57 PTPTT LAB 04/12/25 In Process 20:57 Vitamin D, 25-Hydroxy LAB 04/12/25 In Process 20:57 Sodium Chloride 0.9% PHA 04/12/25 In Process 21:00 Sodium Chloride 0.9% PHA 04/12/25 In Process 21:00 Acetazolamide Tablet PHA 04/12/25 In Process (Diamox Tablet) 22:00 Cholestyramine Powder PHA 04/12/25 In Process (Questran Powder) 22:00 Dicyclomine Capsule PHA 04/12/25 In Process (Bentyl Capsule) 22:00 Hydrochlorothiazide PHA 04/13/25 In Process Tablet (Hydrochlorot 10:00 Tamsulosin PHA 04/13/25 In Process Hydrochloride (Flomax) 18:00 Duloxetine Hcl PHA 04/13/25 In Process Capsule (Cymbalta 10:00 Gabapentin Capsule PHA 04/12/25 In Process (Neurontin Capsule) 22:00 Losartan Tablet PHA 04/13/25 In Process (Cozaar Tablet) 10:00 Pantoprazole PHA 04/13/25 In Process (Protonix) 10:00 Piperacillin-Tazob PHA 04/12/25 In Process 3.375gm (Zosyn 3.375g 21:30 Piperacillin-Tazob PHA 04/13/25 In Process 3.375gm (Zosyn 3.375g 06:00 Stool Wbc LAB 04/12/25 Transmitted 21:37 Stool Bacterial ONESIMO 04/12/25 Uncollected Culture 21:37 Stool Occult Blood LAB 04/12/25 Transmitted 21:37 Clostridium Difficile ONESIMO 04/12/25 Uncollected Toxin 21:37 Blood Culture ONESIMO 04/12/25 Uncollected 21:37 Urine Bacterial ONESIMO 04/12/25 Uncollected Culture 21:37 Chest Xray 1 View XY 04/12/25 Transmitted 21:37 Abdomen Complete US 04/12/25 Transmitted Sonogram 21:37 Date of Service: Apr 12, 2025 Billing Provider: MARIUM VALVERDE MD Common Visit Codes: [id number] INP/OBS CARE (HIGH) Secondary Visit Codes: [id number] CARE PLAN 30 MINUTES ELÍAS CYR RESIDENT Apr 12, 2025 21:43
[2025-04-12 21:44] LABS: Hematocrit 46.4 % (36.0-46.0); Hemoglobin 15.8 g/dL (12.2-16.2); Mean Corpuscular Hemoglobin 31.4 pg (28.0-32.0); Mean Corpuscular Volume 92.2 fL (80.0-100.0); Nucleated Red Blood Cells % 0.1 %
[2025-04-12 21:57] LABS: INR 0.94 (0.9-1.15); Partial Thromboplastin Time 32.1 SEC (24.5-34.5); Prothrombin Time 10.0 sec (9.3-11.8)
[2025-04-12 21:58] LABS: Alanine Aminotransferase 22 U/L (7-40); Albumin 4.7 g/dL (3.2-4.8); Anion Gap 9 (5-15); BUN/Creatinine Ratio 19.7 (10.0-20.0); Blood Urea Nitrogen 13 mg/dL (9-23); Calcium 9.4 mg/dL (8.7-10.4); Magnesium 2.1 mg/dL (1.6-2.6); Potassium 3.6 mmol/L (3.5-5.1); Sodium 142 mmol/L (136-145); Total Protein 7.8 g/dL (5.7-8.2)
[2025-04-12 21:59] LABS: Bilirubin, Total 0.4 mg/dL (0.2-1.0); HDL Cholesterol 57 mg/dL (40-59)
[2025-04-12 22:00] LABS: Alkaline Phosphatase 116 U/L (46-116); Carbon Dioxide 20 mmol/L (20-31); Chloride 113 mmol/L (98-107); Cholesterol 231 mg/dL (< 200); Glucose 121 mg/dL (74-106); Triglycerides 188 mg/dL (< 150)
[2025-04-12] MEDS: acetaZOLAMIDE 250 MG TAB PO SCH (22:00)
[2025-04-12] MEDS: CHOLESTYRAMINE 4 GM POWDER PO SCH (22:00)
[2025-04-12] MEDS: DICYCLOMINE HCL 10 MG CAP PO SCH (22:00)
[2025-04-12] MEDS: GABAPENTIN 300 MG CAP PO SCH (22:00)
[2025-04-12 22:11] LABS: Lipase 41 U/L (12-53)
--- NOTE | 2025-04-12 22:51 | DVH ---
INDICATION: Evaluate choledolithiasis TECHNIQUE: Multiple real-time sonographic images were obtained of the right upper quadrant. COMPARISON: CT CT AB PEL WO CON-NO ORAL OR IV on DOS: 04/12/25, CT CT AB PEL WO CON-NO ORAL OR IV on D OS: 11/01/24, CT CT AB PEL WO CON-NO ORAL OR IV on DOS: 09/25/24, CT CT AB PEL WO CON-NO ORAL OR IV on DOS: 08/07/24, CT CT AB PEL WO CON-NO ORAL OR IV on DOS: 07/28/24 FINDINGS: The liver demonstrates multiple hepatic cysts. The liver measures 14.2 cm. There is no intrahepatic or extrahepatic ductal dilatation. The common duct measures 6 mm. Prior cholecystectomy. The right kidney measures 9.4 cm. The right kidney is normal in contour, size, and shape. The echog enicity is normal. There is no hydronephrosis. The pancreas is not well visualized due to overlying bowel gas. IMPRESSION: 1. Status post cholecystectomy. Unremarkable appearance of the common bile duct.
--- NOTE | 2025-04-12 23:02 | DVH ---
EXAM: XY CHEST XRAY 1 VIEW CLINICAL HISTORY: Evaluate aspiration PNA TECHNIQUE: Single AP view of the chest WID: COMPARISON: CT abdomen and pelvis from same day FINDINGS: Lines and tubes: None Chest: The heart size and pulmonary vasculature is within normal limits. Calcified plaque projects over the aortic arch. No pleural effusion, pneumothorax, or consolidation. The osseous structures are grossly intact. IMPRESSION: 1. No acute cardiopulmonary abnormality.
[2025-04-12 23:04] LABS: Benzodiazephine Screen, Urine Pos (NEGATIVE)
[2025-04-12] MEDS: ACETAMINOPHEN 325 MG TAB PO PRN (23:06)
[2025-04-12 23:07] LABS: Amphetamine Screen, Urine Neg (NEGATIVE); Barbiturate Scree,Urine Neg (NEGATIVE); Cannabinoid Screen, Urine Pos (NEGATIVE); Cocaine Screen, Urine Neg (NEGATIVE); Opiate Scree,Urine Neg (NEGATIVE); Phencyclidine Screen, Urine Neg (NEGATIVE)
[2025-04-12 23:32] VITALS: BP 119/80; PULSE 104; RESP 22; TEMP 98; O2SAT 92
[2025-04-12] MEDS: MORPHINE SULFATE 4 MG/ML SYR/VIAL IV PRN (23:56)
--- NOTE | 2025-04-13 01:33 | DVH ---
EXAM: CT HEAD WITHOUT CONTRAST INDICATION: Headache TECHNIQUE: CT of the head without intravenous contrast. Radiation Dose : 1. Head: CT Dose: CTDI volume is 59.04 mGy. Dose-length product is 1704.6 mGy*cm The dose indicators for CT are the volume Computed Tomography (CT) Dose Index (CTDIvol) and the Dose Length Product (DLP), and are measured in units of mGy and mGy-cm, respectively. These indicators are not patient dose, but values generated from the CT scanner acquisition factors. The report includes radiation exposure data for exposures received during this examination. COMPARISON: MRI MRA ANGIO HEAD BRAIN on DOS: 03/11/25, CT HEAD WITHOUT CONTRAST on DOS: 03/09/25 FINDINGS: There is no evidence of acute intracranial hemorrhage, extra-axial collection, mass effect, midline s hift, herniation or hydrocephalus. The ventricles, sulci and cisterns are age appropriate. Cavum septum pellucidum. The real-white differentiation is intact. The visualized paranasal sinuses and mastoid air cells are clear. The surrounding soft tissues and osseous structures are unremarkable. IMPRESSION: 1. No acute intracranial abnormality. Radiation optimization: All CT scans at this facility use at least one of these dose optimization rose hniques: automated exposure control mA and/or kV adjustment per patient size (includes targeted exam s where dose is matched to clinical indication) or iterative reconstruction.
[2025-04-13] MEDS: SUMAtriptan SUCCINATE 6 MG/0.5 ML VL SC ONE (02:40)
[2025-04-13] MEDS: LIDOCAINE 5% TOPICAL PATCH TOP ONE (02:40)
[2025-04-13 04:34] LABS: Hematocrit 46.6 % (36.0-46.0); Hemoglobin 15.8 g/dL (12.2-16.2); Mean Corpuscular Hemoglobin 31.6 pg (28.0-32.0); Mean Corpuscular Volume 93.0 fL (80.0-100.0); Nucleated Red Blood Cells % 0.1 %
[2025-04-13 04:44] LABS: Alanine Aminotransferase 24 U/L (7-40); Anion Gap 12 (5-15); BUN/Creatinine Ratio 20.3 (10.0-20.0); Blood Urea Nitrogen 14 mg/dL (9-23); Calcium 9.5 mg/dL (8.7-10.4); Glucose 104 mg/dL (74-106); Potassium 3.8 mmol/L (3.5-5.1); Sodium 142 mmol/L (136-145); Total Protein 7.9 g/dL (5.7-8.2)
[2025-04-13 04:45] LABS: Albumin 4.8 g/dL (3.2-4.8); Bilirubin, Total 0.5 mg/dL (0.2-1.0)
[2025-04-13 04:55] LABS: Alkaline Phosphatase 117 U/L (46-116); Carbon Dioxide 19 mmol/L (20-31); Chloride 111 mmol/L (98-107)
[2025-04-13] MEDS ORDERED: PIPERACILLIN-TAZOB 3.375GM 100 ML IV SCH (06:00)
[2025-04-13] MEDS: LOSARTAN POTASSIUM 50 MG TAB PO SCH (08:36)
[2025-04-13] MEDS: hydroCHLOROthiazide 25 MG TAB PO SCH (08:37)
[2025-04-13] MEDS: PANTOPRAZOLE 40 MG/10 ML VIAL INJ IV SCH (09:51)
[2025-04-13] MEDS: SUMAtriptan SUCCINATE 6 MG/0.5 ML VL SC PRN (09:52)
[2025-04-13] MEDS: ONDANSETRON HCL 4 MG/2 ML VIAL IV PRN (12:35)
[2025-04-13 13:00] VITALS: BP 163/88; PULSE 85; RESP 20; TEMP 98.4; O2SAT 98
--- NOTE | 2025-04-13 14:49 | DVHPN2 ---
Subjective 49-year-old female comes with a chief complaint of abdominal pain and diarrhea for 2 days She also has chronic rectal prolapse Past medical history is hypertension, hypothyroidism, bradycardia, papilledema, IBS, history of bowel obstruction and surgeries, history of C diff colitis Changes from previous H/P or p: Changes Objective Vitals Vital Signs Date Time Temp Pulse Resp B/P (MAP) Pulse Ox O2 Delivery O2 Flow Rate FiO2 04/13/25 13:00 98.4 85 20 163/88 (113) 98 98.4 04/12/25 20:31 Room Air* 0 21 General Appearance: Alert, Oriented X3, Cooperative, moderate distress Lungs: Clear to auscultation, Normal air movement Cardiovascular: Regular rate, Normal S1, Normal S2 Abdomen: Normal bowel sounds, Soft, No tenderness Extremities: No edema Medications Current Medications Medications Dose Ordered Sig/Pedro Route Start Time Stop Time Status Last Admin Dose Admin Acetaminophen 325 mg Q4HP PRN PO 04/12/25 20:30 04/12/25 23:06 325 MG Ondansetron HCl 4 mg Q4HP PRN IV 04/12/25 20:30 04/13/25 12:35 4 MG Morphine Sulfate 2 mg Q4HPRN PRN IV 04/12/25 20:30 04/13/25 12:29 2 MG Sodium Chloride 1,000 ml @ 75 mls/hr [id number] IV 04/12/25 21:00 04/13/25 14:18 75 MLS/HR Acetazolamide 500 mg Q12HR PO 04/12/25 22:00 04/12/25 22:00 500 MG Cholestyramine Resin 4 gm BID PO 04/12/25 22:00 04/12/25 22:00 4 GM Dicyclomine HCl 20 mg TID PO 04/12/25 22:00 04/13/25 14:20 20 MG Hydrochlorothiazide 25 mg DAILY PO 04/13/25 10:00 04/13/25 08:37 25 MG Tamsulosin HCl 0.4 mg QPM PO 04/13/25 18:00 Duloxetine HCl 60 mg DAILY PO 04/13/25 10:00 04/13/25 08:37 60 MG Gabapentin 600 mg TID PO 04/12/25 22:00 04/13/25 14:20 600 MG Losartan Potassium 100 mg DAILY PO 04/13/25 10:00 04/13/25 08:36 100 MG Pantoprazole Sodium 40 mg DAILY IV 04/13/25 10:00 04/13/25 09:51 40 MG Ceftriaxone Sodium 50 ml @ 100 mls/hr DAILY@09 IV 04/13/25 09:00 04/13/25 08:36 100 MLS/HR Metronidazole 100 ml @ 100 mls/hr Q8H IV 04/13/25 06:00 04/13/25 14:17 100 MLS/HR Sumatriptan Succinate 6 mg PRN PRN SC 04/13/25 02:00 04/13/25 09:52 6 MG Lidocaine 1 patch DAILY TOP 04/14/25 10:00 Laboratory Results Laboratory Tests 04/13/25 03:39 Chemistry Test 04/12/25 21:15 04/13/25 03:39 Albumin 4.7 g/dL (3.2-4.8) 4.8 g/dL (3.2-4.8) Calcium Level 9.4 mg/dL (8.7-10.4) 9.5 mg/dL (8.7-10.4) Magnesium Level 2.1 mg/dL (1.6-2.6) Phosphorus Level 4.1 mg/dL (2.4-5.1) Total Protein 7.8 g/dL (5.7-8.2) 7.9 g/dL (5.7-8.2) Coagulation Test 04/12/25 21:15 Prothrombin Time 10.0 sec (9.3-11.8) Prothrombin Time INR 0.94 (0.9-1.15) Activated Partial Thromboplast Time 32.1 SEC (24.5-34.5) Lipid panel Test 04/12/25 21:15 Cholesterol Level 231 mg/dL (< 200) H HDL Cholesterol 57 mg/dL (40-59) Lipase 41 U/L (12-53) Triglycerides Level 188 mg/dL (< 150) H LFT Test 04/12/25 21:15 04/13/25 03:39 Alanine Aminotransferase (ALT) 22 U/L (7-40) 24 U/L (7-40) Alkaline Phosphatase 116 U/L (46-116) 117 U/L (46-116) H Aspartate Amino Transferase (AST) 20 U/L (13-40) 21 U/L (13-40) Total Bilirubin 0.4 mg/dL (0.2-1.0) 0.5 mg/dL (0.2-1.0) Urinalysis Test 04/12/25 10:48 Urine Color Colorless (Yellow) Urine Clarity Clear (Clear) Urine pH 6.0 (5.0-9.0) Urine Specific [place] 1.009 (1.001-1.035) Urine Protein Negative (Negative) Urine Ketones Negative (Negative) Urine Blood Trace /uL (Negative) H Urine Nitrite Negative (Negative) Urine Bilirubin Negative (Negative) Urine Urobilinogen Normal mg/dL (Negative) Urine Leukocyte Esterase Negative /uL (Negative) Urine RBC 2 /hpf (0 - 4) Urine Microscopic WBC 1 /HPF (0-5) Urine Squamous Epithelial Cells Few /hpf (<5) Urine Bacteria None seen /hpf (None Seen) Urine Glucose Normal mg/dL (Normal) Assessment/Plan Assessment/Plan Abdominal pain and diarrhea Acute kidney injury due to vasomotor nephropathy Rule out C diff colitis Hypothyroidism Bradycardia Hiatal hernia History of esophagitis and gastritis Peripheral Neuropathy Plan Collect stool sample to rule out C diff IV Flagyl and Rocephin IV fluids Pain control Dilaudid p.r.n. Losartan 100 mg daily Diamox 500 mg twice a day Plan discussed with: Patient My Orders Orders - STEVAN VERAS MD Procedure Category Date Status Time Cardiac DIET 04/13/25 Transmitted Diet-2gna,Lofat,Lochol Dinner Date of Service: Apr 13, 2025 Billing Provider: STEVAN VERAS MD Common Visit Codes: NOT BILLABLE STEVAN VERAS MD Apr 13, 2025 14:49
[2025-04-13] MEDS: HYDROmorphone HCL 2 MG/ML VL/or syr IV PRN (15:37)
[2025-04-13 16:46] VITALS: BP 163/88; PULSE 85; RESP 20; TEMP 98.4; O2SAT 98
[2025-04-13] MEDS: TAMSULOSIN HYDROCHLORIDE 0.4 MG CAP PO SCH (18:46)
[2025-04-13] MEDS: ALPRAZolam 0.25 MG TAB PO PRN (18:49)
[2025-04-13 20:00] VITALS: PULSE 70; PULSE 79; RESP 14; O2SAT 93
[2025-04-13 21:00] VITALS: BP 137/80; PULSE 70; RESP 14; TEMP 97.2; O2SAT 93
[2025-04-14] VITALS (8 sets, daily range): BP systolic 147–151; BP diastolic 75–89; PULSE 57–87; RESP 14–18; TEMP 97–98.5; O2SAT 93–99
[2025-04-14 06:06] LABS: Hematocrit 41.0 % (36.0-46.0); Hemoglobin 13.7 g/dL (12.2-16.2); Mean Corpuscular Hemoglobin 30.9 pg (28.0-32.0); Mean Corpuscular Volume 92.6 fL (80.0-100.0); Nucleated Red Blood Cells % 0.1 %
[2025-04-14 06:23] LABS: Alanine Aminotransferase 23 U/L (7-40); Albumin 4.3 g/dL (3.2-4.8); Alkaline Phosphatase 102 U/L (46-116); Anion Gap 11 (5-15); BUN/Creatinine Ratio 19.4 (10.0-20.0); Blood Urea Nitrogen 14 mg/dL (9-23); Calcium 9.0 mg/dL (8.7-10.4); Carbon Dioxide 21 mmol/L (20-31); Magnesium 1.9 mg/dL (1.6-2.6); Sodium 141 mmol/L (136-145); Total Protein 7.1 g/dL (5.7-8.2)
[2025-04-14 06:24] LABS: Bilirubin, Total 0.5 mg/dL (0.2-1.0)
[2025-04-14 06:30] LABS: Chloride 109 mmol/L (98-107); Glucose 107 mg/dL (74-106); Potassium 3.4 mmol/L (3.5-5.1)
[2025-04-14] MEDS: LIDOCAINE 5% TOPICAL PATCH TOP SCH (09:43)
[2025-04-14] MEDS: POTASSIUM CHL 20 Meq TABLET PO ONE (11:05)
--- NOTE | 2025-04-14 13:03 | DVHPN2 ---
Subjective Better Less diarrhea Changes from previous H/P or p: Changes Objective Vitals Vital Signs Date Time Temp Pulse Resp B/P (MAP) Pulse Ox O2 Delivery O2 Flow Rate FiO2 04/14/25 10:15 65 17 150/75 04/14/25 09:48 97.8 99 97.8 04/13/25 20:00 Room Air* 0 21 Intake/Output Intake and Output 04/14/25 07:00 Intake Total 2950 ml Balance 2950 ml Intake Oral 600 ml IV Total 2350 ml # Voids 2 # Bowel Movements 2 General Appearance: Alert, Oriented X3, Cooperative, moderate distress Lungs: Clear to auscultation, Normal air movement Cardiovascular: Regular rate, Normal S1, Normal S2 Abdomen: Normal bowel sounds, Soft, No tenderness Extremities: No edema Medications Current Medications Medications Dose Ordered Sig/Pedro Route Start Time Stop Time Status Last Admin Dose Admin Acetaminophen 325 mg Q4HP PRN PO 04/12/25 20:30 04/12/25 23:06 325 MG Ondansetron HCl 4 mg Q4HP PRN IV 04/12/25 20:30 04/14/25 09:44 4 MG Sodium Chloride 1,000 ml @ 75 mls/hr [id number] IV 04/12/25 21:00 04/13/25 14:18 75 MLS/HR Acetazolamide 500 mg Q12HR PO 04/12/25 22:00 04/14/25 09:46 500 MG Cholestyramine Resin 4 gm BID PO 04/12/25 22:00 04/14/25 09:43 4 GM Dicyclomine HCl 20 mg TID PO 04/12/25 22:00 04/14/25 05:14 20 MG Hydrochlorothiazide 25 mg DAILY PO 04/13/25 10:00 04/14/25 09:46 25 MG Tamsulosin HCl 0.4 mg QPM PO 04/13/25 18:00 04/13/25 18:46 0.4 MG Duloxetine HCl 60 mg DAILY PO 04/13/25 10:00 04/14/25 09:43 60 MG Gabapentin 600 mg TID PO 04/12/25 22:00 04/14/25 05:15 600 MG Losartan Potassium 100 mg DAILY PO 04/13/25 10:00 04/14/25 09:47 100 MG Pantoprazole Sodium 40 mg DAILY IV 04/13/25 10:00 04/14/25 09:43 40 MG Ceftriaxone Sodium 50 ml @ 100 mls/hr DAILY@09 IV 04/13/25 09:00 04/14/25 09:43 100 MLS/HR Metronidazole 100 ml @ 100 mls/hr Q8H IV 04/13/25 06:00 04/14/25 05:05 100 MLS/HR Sumatriptan Succinate 6 mg PRN PRN SC 04/13/25 02:00 04/13/25 09:52 6 MG Lidocaine 1 patch DAILY TOP 04/14/25 10:00 04/14/25 09:43 1 PATCH Hydromorphone HCl 0.5 mg Q4HPRN PRN IV 04/13/25 14:45 04/14/25 09:45 0.5 MG Alprazolam 0.25 mg Q8HP PRN PO 04/13/25 14:45 04/13/25 18:49 0.25 MG Laboratory Results Laboratory Tests 04/14/25 05:45 Chemistry Test 04/14/25 05:45 Albumin 4.3 g/dL (3.2-4.8) Calcium Level 9.0 mg/dL (8.7-10.4) Magnesium Level 1.9 mg/dL (1.6-2.6) Total Protein 7.1 g/dL (5.7-8.2) LFT Test 04/14/25 05:45 Alanine Aminotransferase (ALT) 23 U/L (7-40) Alkaline Phosphatase 102 U/L (46-116) Aspartate Amino Transferase (AST) 19 U/L (13-40) Total Bilirubin 0.5 mg/dL (0.2-1.0) HgA1c, TSH Test 04/14/25 05:45 Thyroid Stimulating Hormone (TSH) 1.13 uIU/mL (0.55-4.78) Urinalysis Test 04/12/25 10:48 Urine Color Colorless (Yellow) Urine Clarity Clear (Clear) Urine pH 6.0 (5.0-9.0) Urine Specific [place] 1.009 (1.001-1.035) Urine Protein Negative (Negative) Urine Ketones Negative (Negative) Urine Blood Trace /uL (Negative) H Urine Nitrite Negative (Negative) Urine Bilirubin Negative (Negative) Urine Urobilinogen Normal mg/dL (Negative) Urine Leukocyte Esterase Negative /uL (Negative) Urine RBC 2 /hpf (0 - 4) Urine Microscopic WBC 1 /HPF (0-5) Urine Squamous Epithelial Cells Few /hpf (<5) Urine Bacteria None seen /hpf (None Seen) Urine Glucose Normal mg/dL (Normal) Microbiology Microbiology Date/Time Source Procedure Growth Status 04/13/25 11:54 Stool Stool Culture - Preliminary Resulted 04/13/25 11:54 Stool Shiga Toxin I & II - Final Resulted 04/13/25 11:54 Stool Clostridium difficile Toxin Assay Pending Resulted Assessment/Plan Assessment/Plan Abdominal pain and diarrhea Acute kidney injury due to vasomotor nephropathy Rule out C diff colitis Hypothyroidism Bradycardia Hiatal hernia History of esophagitis and gastritis Peripheral Neuropathy Plan Collect stool sample to rule out C diff IV Flagyl and Rocephin IV fluids Pain control Dilaudid p.r.n. Losartan 100 mg daily Diamox 500 mg twice a day 04/14/25: Continue current Tx pending C. Diff stool sample Add [place] Plan discussed with: Patient My Orders Orders - STEVAN VERAS MD Procedure Category Date Status Time Cardiac DIET 04/13/25 Transmitted Diet-2gna,Lofat,Lochol Dinner Hydromorphone PHA 04/13/25 In Process Injection (Dilaudid 14:45 Alprazolam Tablet PHA 04/13/25 In Process (Xanax Tablet) 14:45 Date of Service: Apr 14, 2025 Billing Provider: STEVAN VERAS MD Common Visit Codes: NOT BILLABLE STEVAN VERAS MD Apr 14, 2025 13:03
[2025-04-14] MEDS ORDERED: HYDROcodone-ACET 5/325MG TAB PO PRN (13:15)
[2025-04-14] MEDS: VANCOMYCIN HCL 250 MG CAP PO SCH (17:12)
[2025-04-15] VITALS (8 sets, daily range): BP systolic 93–138; BP diastolic 43–78; PULSE 60–82; RESP 14–18; TEMP 97.8–98.9; O2SAT 96–100
[2025-04-15 06:21] LABS: Chloride 107 mmol/L (98-107); Sodium 139 mmol/L (136-145)
[2025-04-15 06:22] LABS: Anion Gap 11 (5-15); Carbon Dioxide 21 mmol/L (20-31)
[2025-04-15 06:23] LABS: Calcium 9.1 mg/dL (8.7-10.4)
[2025-04-15 06:25] LABS: Potassium 3.3 mmol/L (3.5-5.1)
[2025-04-15 06:28] LABS: BUN/Creatinine Ratio 15.1 (10.0-20.0); Blood Urea Nitrogen 11 mg/dL (9-23); Glucose 112 mg/dL (74-106); Magnesium 1.8 mg/dL (1.6-2.6)
[2025-04-15] MEDS ORDERED: HYDROmorphone HCL 2 MG/ML VL/or syr IV PRN (10:45)
[2025-04-15] MEDS: POTASSIUM CHL 20 Meq TABLET PO ONE (12:13)
[2025-04-15] MEDS: MAGNESIUM OXIDE 400 MG TAB PO ONE (12:14)
[2025-04-15] MEDS: HYDROmorphone HCL 2 MG/ML VL/or syr IV PRN (13:24)
--- NOTE | 2025-04-15 14:38 | DVHPN2 ---
Subjective Still c/o diarrhea Changes from previous H/P or p: Changes Objective Vitals Vital Signs Date Time Temp Pulse Resp B/P (MAP) Pulse Ox O2 Delivery O2 Flow Rate FiO2 04/15/25 13:54 106 18 115/73 04/15/25 12:32 97.8 98 97.8 04/14/25 20:00 Room Air* 0 21 Intake/Output Intake and Output 04/15/25 07:00 Intake Total 1550 ml Output Total 4 ml Balance 1546 ml Intake Oral 1550 ml Output Stool Total 4 ml # Voids 10 # Bowel Movements 1 General Appearance: Alert, Oriented X3, Cooperative, moderate distress Lungs: Clear to auscultation, Normal air movement Cardiovascular: Regular rate, Normal S1, Normal S2 Abdomen: Normal bowel sounds, Soft, No tenderness Extremities: No edema Medications Current Medications Medications Dose Ordered Sig/Pedro Route Start Time Stop Time Status Last Admin Dose Admin Acetaminophen 325 mg Q4HP PRN PO 04/12/25 20:30 04/12/25 23:06 325 MG Ondansetron HCl 4 mg Q4HP PRN IV 04/12/25 20:30 04/15/25 09:13 4 MG Sodium Chloride 1,000 ml @ 75 mls/hr [id number] IV 04/12/25 21:00 04/15/25 05:10 75 MLS/HR Acetazolamide 500 mg Q12HR PO 04/12/25 22:00 04/15/25 09:17 500 MG Cholestyramine Resin 4 gm BID PO 04/12/25 22:00 04/15/25 09:18 4 GM Dicyclomine HCl 20 mg TID PO 04/12/25 22:00 04/15/25 12:15 20 MG Hydrochlorothiazide 25 mg DAILY PO 04/13/25 10:00 04/15/25 09:16 25 MG Tamsulosin HCl 0.4 mg QPM PO 04/13/25 18:00 04/14/25 17:12 0.4 MG Duloxetine HCl 60 mg DAILY PO 04/13/25 10:00 04/15/25 09:16 60 MG Gabapentin 600 mg TID PO 04/12/25 22:00 04/15/25 12:15 600 MG Losartan Potassium 100 mg DAILY PO 04/13/25 10:00 04/15/25 09:18 100 MG Pantoprazole Sodium 40 mg DAILY IV 04/13/25 10:00 04/15/25 09:13 40 MG Sumatriptan Succinate 6 mg PRN PRN SC 04/13/25 02:00 04/14/25 14:16 6 MG Lidocaine 1 patch DAILY TOP 04/14/25 10:00 04/15/25 09:18 1 PATCH Alprazolam 0.25 mg Q8HP PRN PO 04/13/25 14:45 04/13/25 18:49 0.25 MG Vancomycin HCl 250 mg QID PO 04/14/25 18:00 04/15/25 12:15 250 MG Hydromorphone HCl 1 mg Q4HPRN PRN IV 04/15/25 10:45 04/15/25 13:24 1 MG Hydromorphone HCl 0.5 mg Q4HPRN PRN IV 04/15/25 10:45 Laboratory Results Laboratory Tests 04/14/25 05:45 04/15/25 05:40 Chemistry Test 04/15/25 05:40 Calcium Level 9.1 mg/dL (8.7-10.4) Magnesium Level 1.8 mg/dL (1.6-2.6) Urinalysis Test 04/12/25 10:48 Urine Color Colorless (Yellow) Urine Clarity Clear (Clear) Urine pH 6.0 (5.0-9.0) Urine Specific [place] 1.009 (1.001-1.035) Urine Protein Negative (Negative) Urine Ketones Negative (Negative) Urine Blood Trace /uL (Negative) H Urine Nitrite Negative (Negative) Urine Bilirubin Negative (Negative) Urine Urobilinogen Normal mg/dL (Negative) Urine Leukocyte Esterase Negative /uL (Negative) Urine RBC 2 /hpf (0 - 4) Urine Microscopic WBC 1 /HPF (0-5) Urine Squamous Epithelial Cells Few /hpf (<5) Urine Bacteria None seen /hpf (None Seen) Urine Glucose Normal mg/dL (Normal) Microbiology Microbiology Date/Time Source Procedure Growth Status 04/13/25 11:54 Stool Stool Culture - Preliminary Resulted 04/13/25 11:54 Stool Shiga Toxin I & II - Final Resulted 04/13/25 11:54 Stool Clostridium difficile Toxin Assay - Final Resulted Assessment/Plan Assessment/Plan Abdominal pain and diarrhea Acute kidney injury due to vasomotor nephropathy Rule out C diff colitis Hypothyroidism Bradycardia Hiatal hernia History of esophagitis and gastritis Peripheral Neuropathy Plan Collect stool sample to rule out C diff IV Flagyl and Rocephin IV fluids Pain control Dilaudid p.r.n. Losartan 100 mg daily Diamox 500 mg twice a day 04/14/25: Continue current Tx pending C. Diff stool sample Add [place] 04/15/25: C. Diff colitis: PO Vanco [place]: IV fluids Abdominal pain: Dilaudid prn Hypokalemia: Replace Hypomagnesemia: Replace HTN: Losartan Plan discussed with: Patient My Orders Orders - STEVAN VERAS MD Procedure Category Date Status Time Hydromorphone PHA 04/15/25 In Process Injection (Dilaudid 10:45 Hydromorphone PHA 04/15/25 In Process Injection (Dilaudid 10:45 Date of Service: Apr 15, 2025 Billing Provider: STEVAN VERAS MD Common Visit Codes: NOT BILLABLE STEVAN VERAS MD Apr 15, 2025 14:38
[2025-04-16] VITALS (8 sets, daily range): BP systolic 92–128; BP diastolic 60–80; PULSE 56–72; RESP 14–18; TEMP 97–98.7; O2SAT 94–100
[2025-04-16] MEDS: POTASSIUM CHL 20 Meq TABLET PO ONE (10:05)
[2025-04-16] MEDS: MAGNESIUM OXIDE 400 MG TAB PO ONE (10:06)
--- NOTE | 2025-04-16 12:04 | DVHPN2 ---
Subjective She is still reports diarrhea several times a day Potassium is 3.3 Changes from previous H/P or p: Changes Objective Vitals Vital Signs Date Time Temp Pulse Resp B/P (MAP) Pulse Ox O2 Delivery O2 Flow Rate FiO2 04/16/25 10:05 119/63 04/16/25 09:51 61 17 04/16/25 09:00 98.5 98 98.5 04/16/25 08:00 Room Air* 0 21 Intake/Output Intake and Output 04/16/25 07:00 Intake Total 3200 ml Balance 3200 ml Intake Oral 3200 ml # Voids 12 # Bowel Movements 8 General Appearance: Alert, Oriented X3, Cooperative, moderate distress Lungs: Clear to auscultation, Normal air movement Cardiovascular: Regular rate, Normal S1, Normal S2 Abdomen: Normal bowel sounds, Soft, No tenderness Extremities: No edema Medications Current Medications Medications Dose Ordered Sig/Pedro Route Start Time Stop Time Status Last Admin Dose Admin Acetaminophen 325 mg Q4HP PRN PO 04/12/25 20:30 04/12/25 23:06 325 MG Ondansetron HCl 4 mg Q4HP PRN IV 04/12/25 20:30 04/16/25 07:33 4 MG Sodium Chloride 1,000 ml @ 75 mls/hr [id number] IV 04/12/25 21:00 04/15/25 05:10 75 MLS/HR Acetazolamide 500 mg Q12HR PO 04/12/25 22:00 04/16/25 10:04 500 MG Cholestyramine Resin 4 gm BID PO 04/12/25 22:00 04/16/25 10:05 4 GM Dicyclomine HCl 20 mg TID PO 04/12/25 22:00 04/16/25 06:58 20 MG Hydrochlorothiazide 25 mg DAILY PO 04/13/25 10:00 04/16/25 10:05 25 MG Tamsulosin HCl 0.4 mg QPM PO 04/13/25 18:00 04/15/25 18:07 0.4 MG Duloxetine HCl 60 mg DAILY PO 04/13/25 10:00 04/16/25 10:05 60 MG Gabapentin 600 mg TID PO 04/12/25 22:00 04/16/25 06:51 600 MG Losartan Potassium 100 mg DAILY PO 04/13/25 10:00 04/16/25 10:05 100 MG Pantoprazole Sodium 40 mg DAILY IV 04/13/25 10:00 04/16/25 10:04 40 MG Sumatriptan Succinate 6 mg PRN PRN SC 04/13/25 02:00 04/14/25 14:16 6 MG Lidocaine 1 patch DAILY TOP 04/14/25 10:00 04/16/25 10:04 1 PATCH Alprazolam 0.25 mg Q8HP PRN PO 04/13/25 14:45 04/13/25 18:49 0.25 MG Vancomycin HCl 250 mg QID PO 04/14/25 18:00 04/16/25 11:52 250 MG Hydromorphone HCl 1 mg Q4HPRN PRN IV 04/15/25 10:45 04/16/25 07:44 1 MG Hydromorphone HCl 0.5 mg Q4HPRN PRN IV 04/15/25 10:45 Laboratory Results Laboratory Tests 04/14/25 05:45 04/15/25 05:40 Urinalysis Test 04/12/25 10:48 Urine Color Colorless (Yellow) Urine Clarity Clear (Clear) Urine pH 6.0 (5.0-9.0) Urine Specific [place] 1.009 (1.001-1.035) Urine Protein Negative (Negative) Urine Ketones Negative (Negative) Urine Blood Trace /uL (Negative) H Urine Nitrite Negative (Negative) Urine Bilirubin Negative (Negative) Urine Urobilinogen Normal mg/dL (Negative) Urine Leukocyte Esterase Negative /uL (Negative) Urine RBC 2 /hpf (0 - 4) Urine Microscopic WBC 1 /HPF (0-5) Urine Squamous Epithelial Cells Few /hpf (<5) Urine Bacteria None seen /hpf (None Seen) Urine Glucose Normal mg/dL (Normal) Microbiology Microbiology Date/Time Source Procedure Growth Status 04/13/25 11:54 Stool Stool Culture - Preliminary Resulted 04/13/25 11:54 Stool Shiga Toxin I & II - Final Resulted 04/13/25 11:54 Stool Clostridium difficile Toxin Assay - Final Resulted Assessment/Plan Assessment/Plan Abdominal pain and diarrhea Acute kidney injury due to vasomotor nephropathy Rule out C diff colitis Hypothyroidism Bradycardia Hiatal hernia History of esophagitis and gastritis Peripheral Neuropathy Plan Collect stool sample to rule out C diff IV Flagyl and Rocephin IV fluids Pain control Dilaudid p.r.n. Losartan 100 mg daily Diamox 500 mg twice a day 04/14/25: Continue current Tx pending C. Diff stool sample Add [place] 04/15/25: C. Diff colitis: PO Vanco JOB: IV fluids Abdominal pain: Dilaudid prn Hypokalemia: Replace Hypomagnesemia: Replace HTN: Losartan 04/16/2025: Continue p.o. vancomycin Continue IV fluids Regular diet Dilaudid IV p.r.n. for pain Monitor closely Plan discussed with: Patient My Orders Orders - STEVAN VERAS MD Procedure Category Date Status Time Regular Diet DIET 04/16/25 Transmitted Breakfast Date of Service: Apr 16, 2025 Billing Provider: STEVAN VERAS MD Common Visit Codes: NOT BILLABLE STEVAN VERAS MD Apr 16, 2025 12:04
[2025-04-17] VITALS (8 sets, daily range): BP systolic 113–158; BP diastolic 60–90; PULSE 66–82; RESP 16–18; TEMP 97–98.1; O2SAT 96–100
[2025-04-17 10:01] LABS: Anion Gap 12 (5-15); Chloride 111 mmol/L (98-107); Potassium 3.6 mmol/L (3.5-5.1); Sodium 141 mmol/L (136-145)
[2025-04-17 10:07] LABS: BUN/Creatinine Ratio 11.3 (10.0-20.0); Blood Urea Nitrogen 8 mg/dL (9-23); Calcium 8.7 mg/dL (8.7-10.4); Carbon Dioxide 18 mmol/L (20-31); Glucose 112 mg/dL (74-106); Magnesium 2.0 mg/dL (1.6-2.6)
--- NOTE | 2025-04-17 13:18 | DVHPN2 ---
Subjective He is still complaining of several episodes of loose stools even though it is getting a little better and some abdominal pain Changes from previous H/P or p: Changes Objective Vitals Vital Signs Date Time Temp Pulse Resp B/P (MAP) Pulse Ox O2 Delivery O2 Flow Rate FiO2 04/17/25 12:30 97.9 66 17 129/79 (96) 97 97.9 04/17/25 08:00 Room Air* 0 21 Intake/Output Intake and Output 04/17/25 07:00 Intake Total 1200 ml Balance 1200 ml Intake Oral 1200 ml # Voids 11 # Bowel Movements 6 General Appearance: Alert, Oriented X3, Cooperative, moderate distress Lungs: Clear to auscultation, Normal air movement Cardiovascular: Regular rate, Normal S1, Normal S2 Abdomen: Normal bowel sounds, Soft, No tenderness Extremities: No edema Medications Current Medications Medications Dose Ordered Sig/Pedro Route Start Time Stop Time Status Last Admin Dose Admin Acetaminophen 325 mg Q4HP PRN PO 04/12/25 20:30 04/12/25 23:06 325 MG Ondansetron HCl 4 mg Q4HP PRN IV 04/12/25 20:30 04/17/25 06:13 4 MG Sodium Chloride 1,000 ml @ 75 mls/hr [id number] IV 04/12/25 21:00 04/17/25 11:21 75 MLS/HR Acetazolamide 500 mg Q12HR PO 04/12/25 22:00 04/17/25 10:19 500 MG Cholestyramine Resin 4 gm BID PO 04/12/25 22:00 04/17/25 09:57 4 GM Dicyclomine HCl 20 mg TID PO 04/12/25 22:00 04/17/25 06:13 20 MG Hydrochlorothiazide 25 mg DAILY PO 04/13/25 10:00 04/17/25 09:58 25 MG Tamsulosin HCl 0.4 mg QPM PO 04/13/25 18:00 04/16/25 18:09 0.4 MG Duloxetine HCl 60 mg DAILY PO 04/13/25 10:00 04/17/25 09:57 60 MG Gabapentin 600 mg TID PO 04/12/25 22:00 04/17/25 06:13 600 MG Losartan Potassium 100 mg DAILY PO 04/13/25 10:00 04/17/25 09:58 100 MG Pantoprazole Sodium 40 mg DAILY IV 04/13/25 10:00 04/17/25 09:57 40 MG Sumatriptan Succinate 6 mg PRN PRN SC 04/13/25 02:00 04/14/25 14:16 6 MG Lidocaine 1 patch DAILY TOP 04/14/25 10:00 04/17/25 09:57 1 PATCH Alprazolam 0.25 mg Q8HP PRN PO 04/13/25 14:45 04/16/25 22:07 0.25 MG Vancomycin HCl 250 mg QID PO 04/14/25 18:00 04/17/25 11:10 250 MG Hydromorphone HCl 1 mg Q4HPRN PRN IV 04/15/25 10:45 04/17/25 11:12 1 MG Hydromorphone HCl 0.5 mg Q4HPRN PRN IV 04/15/25 10:45 Laboratory Results Laboratory Tests 04/14/25 05:45 04/17/25 08:32 Chemistry Test 04/17/25 08:32 Calcium Level 8.7 mg/dL (8.7-10.4) Magnesium Level 2.0 mg/dL (1.6-2.6) Urinalysis Test 04/12/25 10:48 Urine Color Colorless (Yellow) Urine Clarity Clear (Clear) Urine pH 6.0 (5.0-9.0) Urine Specific [place] 1.009 (1.001-1.035) Urine Protein Negative (Negative) Urine Ketones Negative (Negative) Urine Blood Trace /uL (Negative) H Urine Nitrite Negative (Negative) Urine Bilirubin Negative (Negative) Urine Urobilinogen Normal mg/dL (Negative) Urine Leukocyte Esterase Negative /uL (Negative) Urine RBC 2 /hpf (0 - 4) Urine Microscopic WBC 1 /HPF (0-5) Urine Squamous Epithelial Cells Few /hpf (<5) Urine Bacteria None seen /hpf (None Seen) Urine Glucose Normal mg/dL (Normal) Microbiology Microbiology Date/Time Source Procedure Growth Status 04/16/25 10:25 Voided Urine Urine Culture - Preliminary Resulted 04/16/25 10:11 Blood Blood Culture - Preliminary NO GROWTH AFTER 24 HOURS OF INCUBATION. Resulted 04/13/25 11:54 Stool Stool Culture - Final Complete 04/13/25 11:54 Stool Shiga Toxin I & II - Final Complete 04/13/25 11:54 Stool Clostridium difficile Toxin Assay - Final Complete Assessment/Plan Assessment/Plan Abdominal pain and diarrhea Acute kidney injury due to vasomotor nephropathy Rule out C diff colitis Hypothyroidism Bradycardia Hiatal hernia History of esophagitis and gastritis Peripheral Neuropathy Plan Collect stool sample to rule out C diff IV Flagyl and Rocephin IV fluids Pain control Dilaudid p.r.n. Losartan 100 mg daily Diamox 500 mg twice a day 04/14/25: Continue current Tx pending C. Diff stool sample Add [place] 04/15/25: C. Diff colitis: PO Vanco JOB: IV fluids Abdominal pain: Dilaudid prn Hypokalemia: Replace Hypomagnesemia: Replace HTN: Losartan 04/16/2025: Continue p.o. vancomycin Continue IV fluids Regular diet Dilaudid IV p.r.n. for pain Monitor closely 04/17/2025: Continue the current management with the p.o. vancomycin and IV fluids IV Dilaudid p.r.n. for the pain Advance diet slowly as tolerated Discharge planning for tomorrow Plan discussed with: Patient Date of Service: Apr 17, 2025 Billing Provider: STEVAN VERAS MD Common Visit Codes: NOT BILLABLE STEVAN VERAS MD Apr 17, 2025 13:18
[2025-04-18] VITALS (7 sets, daily range): BP systolic 129–157; BP diastolic 46–95; PULSE 55–69; RESP 16–18; TEMP 97.5–98.6; O2SAT 97–100
[2025-04-18] MEDS ORDERED: VANC125C3 PO (13:07)
[2025-04-18] MEDS ORDERED: SIME80CH PO (13:08)
--- NOTE | 2025-04-18 13:11 | DVHDS2 ---
Discharge Summary Date of Admission Apr 12, 2025 at 20:19 Date of Discharge: Apr 18, 2025 Labs/Diagnostic Data: Laboratory Results Test 04/17/25 08:32 04/14/25 05:45 04/13/25 11:54 04/12/25 21:15 Sodium Level 141 mmol/L (136-145) Potassium Level 3.6 mmol/L (3.5-5.1) Chloride Level 111 mmol/L (98-107) Carbon Dioxide Level 18 mmol/L (20-31) Anion Gap 12 (5-15) Blood Urea Nitrogen 8 mg/dL (9-23) Creatinine 0.71 mg/dL (0.550-1.02) Glomerular Filtration Rate Calc 104 mL/min (>90) BUN/Creatinine Ratio 11.3 (10.0-20.0) Serum Glucose 112 mg/dL (74-106) Calcium Level 8.7 mg/dL (8.7-10.4) Magnesium Level 2.0 mg/dL (1.6-2.6) White Blood Count 8.2 10^3/uL (4.4-10.8) Red Blood Count 4.43 10^6/uL (4.0-5.20) Hemoglobin 13.7 g/dL (12.2-16.2) Hematocrit 41.0 % (36.0-46.0) Mean Corpuscular Volume 92.6 fL (80.0-100.0) Mean Corpuscular Hemoglobin 30.9 pg (28.0-32.0) Mean Corpuscular Hemoglobin Concent 33.4 g/dL (32.0-36.0) Red Cell Distribution Width 13.2 % (11.8-14.3) Platelet Count 335 10^3/uL (140-450) Mean Platelet Volume 7.4 fL (6.9-10.8) Neutrophils (%) (Auto) 55.7 % (37.0-80.0) Lymphocytes (%) (Auto) 35.0 % (10.0-50.0) Monocytes (%) (Auto) 7.4 % (0.0-12.0) Eosinophils (%) (Auto) 1.1 % (0.0-7.0) Basophils (%) (Auto) 0.8 % (0.0-2.0) Neutrophils # (Auto) 4.6 10 ^3/uL (1.6-8.6) Lymphocytes # (Auto) 2.9 10 ^3/uL (0.4-5.4) Monocytes # (Auto) 0.6 10 ^3/uL (0-1.3) Eosinophils # (Auto) 0.1 10 ^3/uL (0-0.8) Basophils # (Auto) 0.1 10 ^3/uL (0-0.2) Nucleated Red Blood Cells 0.1 % Total Bilirubin 0.5 mg/dL (0.2-1.0) Aspartate Amino Transferase (AST) 19 U/L (13-40) Alanine Aminotransferase (ALT) 23 U/L (7-40) Alkaline Phosphatase 102 U/L (46-116) Total Protein 7.1 g/dL (5.7-8.2) Albumin 4.3 g/dL (3.2-4.8) Thyroid Stimulating Hormone (TSH) 1.13 uIU/mL (0.55-4.78) Stool Occult Blood Negative (Negative) Stool Occult Blood Sample #3 (Negative) Stool for White Cells None seen Prothrombin Time 10.0 sec (9.3-11.8) Prothrombin Time INR 0.94 (0.9-1.15) Activated Partial Thromboplast Time 32.1 SEC (24.5-34.5) Lactic Acid Level 1.1 mmol/L (0.4-2.0) Phosphorus Level 4.1 mg/dL (2.4-5.1) Triglycerides Level 188 mg/dL (< 150) Cholesterol Level 231 mg/dL (< 200) LDL Cholesterol 160 mg/dL (< 100) HDL Cholesterol 57 mg/dL (40-59) Lipase 41 U/L (12-53) Test 04/12/25 10:48 04/12/25 10:45 Urine Color Colorless (Yellow) Urine Clarity Clear (Clear) Urine pH 6.0 (5.0-9.0) Urine Specific [place] 1.009 (1.001-1.035) Urine Protein Negative (Negative) Urine Ketones Negative (Negative) Urine Blood Trace /uL (Negative) Urine Nitrite Negative (Negative) Urine Bilirubin Negative (Negative) Urine Urobilinogen Normal mg/dL (Negative) Urine Leukocyte Esterase Negative /uL (Negative) Urine RBC 2 /hpf (0 - 4) Urine Microscopic WBC 1 /HPF (0-5) Urine Squamous Epithelial Cells Few /hpf (<5) Urine Bacteria None seen /hpf (None Seen) Urine Glucose Normal mg/dL (Normal) Urine Opiates Screen Neg (NEGATIVE) Urine Fentanyl Screen Neg (NEGATIVE) Urine Barbiturates Screen Neg (NEGATIVE) Urine Phencyclidine Screen Neg (NEGATIVE) Urine Amphetamines Screen Neg (NEGATIVE) Urine Benzodiazepines Screen Pos (NEGATIVE) Urine Cocaine Screen Neg (NEGATIVE) Urine Cannabinoids Screen Pos (NEGATIVE) Hemoglobin A1c 5.6 % A1C (<5.7) Vitamin B12 Level 326 pg/mL (211-911) Vitamin D 25-Hydroxy 30.8 ng/mL (30.0-100) Other Laboratory Tests 04/17/25 08:32 04/14/25 05:45 Brief Hx & Hospital Course: Final diagnoses: Abdominal pain and diarrhea due to C diff colitis C diff colitis Acute kidney injury due to vasomotor nephropathy Hypothyroidism Bradycardia Hiatal hernia History of esophagitis and gastritis Peripheral Neuropathy 49-year-old female came with abdominal pain and diarrhea and was found to have C diff colitis She had acute kidney injury and dehydration which was corrected with IV fluids She had electrolytes imbalance Hypokalemia was corrected Hypomagnesemia was also corrected Dehydration improved The diarrhea is improving now She is tolerating diet She was given vancomycin p.o. and she will be continued on vancomycin at home The patient is stable for discharge Condition at Discharge: Stable Final Diagnosis/Problems List Abdominal pain and diarrhea due to C diff colitis C diff colitis Acute kidney injury due to vasomotor nephropathy Hypothyroidism Bradycardia Hiatal hernia History of esophagitis and gastritis Peripheral Neuropathy Discharge Disposition: Home SNF Discharge Will this Physician continue t: No Discharge Instruct/Medications Scheduled Acetazolamide (Diamox), 500 MG PO Q12HR Alprazolam (Alprazolam), 1 TAB PO TID, (Reported) Cholestyramine (Questran Powder), 4 GM PO BID Dicyclomine Hcl (Bentyl Capsule), 1 CAP PO TID Docusate Sodium (Colace), 1 CAP PO BID Duloxetine Hcl (Cymbalta), 1 CAP PO DAILY, (Reported) Gabapentin (Gabapentin), 1 TAB PO TID, (Reported) Hctz (Hydrochlorothiazide), 25 MG PO DAILY, (Reported) Losartan Potassium (Losartan Potassium), 100 MG PO DAILY, (Reported) Pantoprazole Sodium Sesquihydr (Protonix), 40 MG PO DAILY Sennosides-Docusate Sodium (Senokot S), 1 TAB PO BID, (Reported) Simethicone (Simethicone), 80 MG PO TID, (Reported) Tamsulosin Hcl (Tamsulosin Hcl), 1 CAP PO DAILY, (Reported) Tizanidine Hydrochloride (Zanaflex), 6 MG PO TID, (Reported) Vancomycin HCl (Vancomycin HCl), 125 MG PO Q6HR Scheduled PRN Famotidine (Famotidine), 1 TAB PO QHSP PRN, (Reported) Hydrocodone-Acetaminophen (Hydrocodone Bitartrate/AC 10-325 mg), 1 TAB PO QID PRN for PAIN SCALE 7 THRU 10, (Reported) Simethicone (Gas Relief), 80 MG PO Q6HP PRN Miscellaneous Medications Albuterol Sulfate (Ventolin Mdi), 90 MCG IN, (Reported) Discharge Statement: "Patient was advised to return to the ER or call 911 if any headaches, dizziness, shortness of breath, chest pain, abdominal pain, bleeding, fevers, or worsening of medical condition. Patient was counseled about treatment plan, medications, possible side effects, patientverbalized understanding. All questions were answered to the best of my ability. This discharge took greater then 30 minutes in planning, reviewing documentation, counseling the patient, and discussing with other team members." ASSESSMENT ASSESSMENT Assessment Date of Service: Apr 18, 2025 Billing Provider: STEVAN VERAS MD Common Visit Codes: NOT BILLABLE STEVAN VERAS MD Apr 18, 2025 13:11
== END 2025-04-18 15:19 | disposition home or self-care (01) | DRG 371 ==
LOC: ER 10:14 → OVERFLOW 20:19 → TELE-EAST 04-13 10:47
PROVIDERS: ADMIT Internal Medicine Geriatric Medicine; ATTEND Internal Medicine Geriatric Medicine
DX: A04.72 Enterocolitis due to Clostridium difficile, not specified as recurrent (principal); N17.0 Acute kidney failure with tubular necrosis; K44.9 Diaphragmatic hernia without obstruction or gangrene; I10 Essential (primary) hypertension; E03.9 Hypothyroidism, unspecified; G62.9 Polyneuropathy, unspecified; E87.6 Hypokalemia; F17.210 Nicotine dependence, cigarettes, uncomplicated; E86.0 Dehydration; G89.29 Other chronic pain; M54.9 Dorsalgia, unspecified; R00.1 Bradycardia, unspecified; Z98.1 Arthrodesis status; Z90.710 Acquired absence of both cervix and uterus; Z86.19 Personal history of other infectious and parasitic diseases; Z90.49 Acquired absence of other specified parts of digestive tract
CPT/HCPCS: 36415; 70450; 71045; 74176; 76705; 80048; 80053; 80061; 80307; 81001; 82270; 82306; 82607; 83036; 83605; 83690; 83735; 84100; 84443; 85025; 85048; 85610; 85730; 87040; 87045; 87086; 87427; 87493; 96374; 96375; G0378; J2405; J2470; J2543; J3490

== ENCOUNTER 2025-04-22 19:09 | Inpatient (IN) | payer OTHER, MEDICAID ==
[~2025-04-22] VITALS: Ht 149.9 cm; Wt 82.0 kg
[~2025-04-22 19:09] MED LIST changes: +SIME80CH PO; +VANC125C3 PO
[2025-04-22 19:49] LABS: Hematocrit 38.6 % (36.0-46.0); Hemoglobin 13.4 g/dL (12.2-16.2); Mean Corpuscular Hemoglobin 31.3 pg (28.0-32.0); Mean Corpuscular Volume 90.1 fL (80.0-100.0); Nucleated Red Blood Cells % 0.1 %
[2025-04-22 19:56] LABS: Chloride 103 mmol/L (98-107)
[2025-04-22 19:57] LABS: Carbon Dioxide 26 mmol/L (20-31); Potassium 2.8 mmol/L (3.5-5.1)
[2025-04-22 19:58] LABS: Calcium 9.3 mg/dL (8.7-10.4)
[2025-04-22 20:03] LABS: BUN/Creatinine Ratio 16.4 (10.0-20.0); Blood Urea Nitrogen 11 mg/dL (9-23); Glucose 142 mg/dL (74-106); Lipase 44 U/L (12-53)
--- NOTE | 2025-04-22 20:05 | DVH ---
Date: 04/22/2025 07:47 PM Examination: XY KUB ABDOMEN SINGLE VIEW History: Constipation Comparison: XY KUB ABDOMEN SINGLE VIEW on DOS: 01/24/24 TECHNIQUE: Frontal views of the abdomen was obtained. FINDINGS: Bowel gas pattern is unremarkable. The lung bases are unremarkable. No acute osseous abnormality identified. Pedicle screws and rods are in place at L4-5 with interverte bral spacer visualized. IMPRESSION: 1. Pedicle screws and rods in place at L4-5 with intervertebral spacer visualized. 2. Surgical clips in the right upper quadrant likely from previous cholecystectomy. 3. Stool throughout the transverse left and rectosigmoid colon may represent constipation.
[2025-04-22 20:41] LABS: Urine Protein, UAD TRACE (Negative)
[2025-04-22 20:52] VITALS: PULSE 74; RESP 20; O2SAT 96
[2025-04-22 20:54] LABS: Anion Gap 14 (5-15); Sodium 143 mmol/L (136-145)
[2025-04-22] MEDS: ACETAMINOPHEN 325 MG TAB PO ONE (21:11)
[2025-04-22] MEDS ORDERED: IBUP-1455 PO (22:50)
[2025-04-22] MEDS ORDERED: NITR-87 PO (22:50)
--- NOTE | 2025-04-22 22:51 | ED.PDOC ---
General HPI Comments Patient is a morbidly obese 49-year-old female who arrives the ED today for evaluation of urine retention concerns as well as back pain over the past few days. Patient states she can not pass urine but only in scant amounts. Patient denies any fever but states has been intermittent nausea. Patient was hypertensive at arrival. Chief Complaint: Urinary Time Seen by MD: 19:16 Primary Care Provider: DR ROCK Reviewed notes: Nurses Notes Allergies: Coded Allergies: NO KNOWN ALLERGIES (Unverified , 05/10/14) Home Meds Active Scripts Ibuprofen Micronized (Ibuprofen) 800 Mg Tab, 800 MG PO Q8HP PRN, #20 TAB Prov:BARBRA MAI PAC 04/22/25 Nitrofurantoin Monohydrate Mac (Macrobid) 100 Mg Cap, 100 MG PO BID for 5 Days, #10 CAP Prov:BARBRA MAI PAC 04/22/25 Simethicone (Gas Relief) 80 Mg Chw, 80 MG PO Q6HP PRN, #20 TAB.CHEW Prov:STEVAN VERAS MD 04/18/25 Vancomycin HCl (Vancomycin HCl) 125 Mg Cap, 125 MG PO Q6HR, #98 CAP 125 mg 4 times a day for 2 weeks then 3 times a day for 1 week then twice a day for 1 week then once a day for 1 week Prov:STEVAN VERAS MD 04/18/25 Acetazolamide (Diamox) 250 Mg Tb, 500 MG PO Q12HR for 30 Days, #120 TAB Prov:JACQUELINE PERDOMO MD 03/15/25 Cholestyramine (QUESTRAN POWDER) 4 Gm Pw, 4 GM PO BID for 14 Days, #28 POW Prov:STEVAN VERAS MD 10/02/24 Dicyclomine Hcl (BENTYL CAPSULE) 10 Mg Cp, 1 CAP PO TID, #90 CAP 11 Refills Prov:NICHO COELLO 01/05/24 Docusate Sodium (Colace) 100 Mg Cap, 1 CAP PO BID, #60 CAP Prov:STEVAN VERAS MD 10/28/23 Pantoprazole Sodium Sesquihydr (Protonix) 40 Mg Tab, 40 MG PO DAILY for 7 Days, #7 TAB Prov:CHANTAL STEWART MD 10/14/23 Reported Medications Simethicone (Simethicone) 80 Mg Chw, 80 MG PO TID, TAB.CHEW 03/12/25 Albuterol Sulfate (VENTOLIN MDI) 90 Mcg Ih, 90 MCG IN, INH 03/12/25 Alprazolam (Alprazolam) 1 Mg Tab, 1 TAB PO TID, #90 TAB 03/12/25 Tizanidine Hydrochloride (Zanaflex) 4 Mg Cap, 6 MG PO TID, CAP 03/12/25 Hydrocodone-Acetaminophen (Hydrocodone Bitartrate/AC 10-325 mg) 1 Tab Tab, 1 TAB PO QID PRN for PAIN SCALE 7 THRU 10, TAB 09/25/24 Hctz (Hydrochlorothiazide) 25 Mg Tab, 25 MG PO DAILY, TAB 09/25/24 Losartan Potassium (Losartan Potassium) 100 Mg Tab, 100 MG PO DAILY for 30 Days, MG 09/25/24 Famotidine (Famotidine) 40 Mg Tab, 1 TAB PO QHSP PRN 08/07/24 Tamsulosin Hcl (Tamsulosin Hcl) 0.4 Mg Cap, 1 CAP PO DAILY 08/07/24 Duloxetine Hcl (Cymbalta) 60 Mg Cap, 1 CAP PO DAILY, #90 CAP 3 Refills 01/30/24 Sennosides-Docusate Sodium (Senokot S) 1 Tab Tab, 1 TAB PO BID, #30 TAB 10/14/23 Gabapentin (Gabapentin) 600 Mg Tab, 1 TAB PO TID, #90 TAB 3 Refills 10/14/23 Information Source: Patient Mode of Arrival: Ambulatory Severity: Moderate Inability to void: Moderate Timing: Days Duration: Since onset Prehospital treatment: None Onset: Spontaneous Symptoms: Dysuria, Inability to void Location: Abdomen associated signs and symptoms: Abdominal Pain, Nausea Past Medical History PAST MEDICAL HISTORY: HTN Surgical History: Cholecystectomy, Hernia Repair, Hysterectomy, Tubal Ligation [employer] History: Denies all [employer] Hx, Other Family History Family History: Reviewed,noncontributory to illness Social History Smoker: Cigarettes Alcohol: Denies ETOH Use Drugs: Denies Drug Use Lives In: Home Constitutional: denies: chills, diaphoresis, fatigue, fever, malaise, sweats, weakness, others EENTM: denies: blurred vision, double vision, ear bleeding, ear discharge, ear drainage, ear pain, ear ringing, eye pain, eye redness, hearing loss, mouth pain, mouth swelling, nasal discharge, nose bleeding, nose congestion, nose pain, photophobia, tearing, throat pain, throat swelling, voice changes, others Respiratory: denies: cough, hemoptysis, orthopnea, SOB at rest, shortness of breath, SOB with excertion, stridor, wheezing, others Cardiovascular: denies: chest pain, dizzy spells, diaphoresis, Dyspnea on exertion, edema, irregular heart beat, left arm pain, lightheadedness, palpitations, PND, syncope, others Gastrointestinal: denies: abdomen distended, abdominal pain, blood streaked bowels, constipated, diarrhea, dysphagia, difficulty swallowing, hematemesis, melena, nausea, poor appetite, poor fluid intake, rectal bleeding, rectal pain, vomiting, others Genitourinary: reports: dysuria, others (Urine retention); denies: abnormal vagina bleeding, burning, dyspareunia, flank pain, frequency, hematuria, incontinence, pain, , vagina discharge, urgency Neurological: denies: dizziness, fainting, headache, left sided numbness, left sided weakness, numbness, paresthesia, pre-existing deficit, right sided numbness, right sided weakness, seizure, speech problems, tingling, tremors, weakness, others Musculoskeletal: denies: back pain, gout, joint pain, joint swelling, muscle pain, muscle stiffness, neck pain, others Integumetry: denies: bruises, change in color, change in hair/nails, dryness, laceration, lesions, lumps, rash, wounds, others Allergic/Immunocompromised: denies: Difficulty Healing, Frequent Infections, Hives, Itching, others Hematologic/Lymphatic: denies: anemia, blood clots, easy bleeding, easy bruisin g, swollen glands, others Endocrine: denies: excessive hunger, excessive sweating, excessive thirst, excessive urination, flushing, intolerance to cold, intolerance to heat, unexplained weight gain, unexplained weight loss, others Psychiatric: denies: anxiety, bipolar disorder, depression, hopeless, panic disorder, schizophrenia, sleepless, suicidal, others Physical Exam General Appearance: Moderate Distress ([id number] distress due to retention discomfort concerns.), Normal HEENT: Normal ENT Inspection, Pharynx Normal, TMs Normal Neck: Full Range of Motion, Non-Tender, Normal, Normal Inspection Respiratory: Chest Non-Tender, Lungs Clear, No Accessory Muscle Use, No Respiratory Distress, Normal Breath Sounds Cardiovascular: No Edema, No JVD, No Murmur, No Gallop, Normal Peripheral Pulses, Regular Rate/Rhythm Breast Exam: Deferred Gastrointestinal: Other (Diffuse bilateral abdominal/pelvic tenderness to palpation throughout. Difficult to assess due to body habitus. No pulsatile masses.) Genitalia: Deferred Pelvic: Deferred Rectal: Deferred Extremities: No calf tenderness, Normal inspection Neurologic: Alert Cerebellar Function: NOT DONE Reflexes: NOT DONE Skin: Dry, Normal Color, Warm Lymphatic: No Adenopathy Was a procedure done? Was a procedure done?: No Differential Diagnosis Kidney stone (Female): Other (Bladder outlet obstruction, UTI, pyelonephritis, ovarian cyst, uterine fibroid) X-Ray, Labs, Meds, VS Vital Signs Date Time Temp Pulse Resp B/P (MAP) Pulse Ox O2 Delivery O2 Flow Rate FiO2 04/22/25 20:52 74 20 96 Room Air* 0 21 04/22/25 19:11 98.4 96 16 157/104 96 98.4 Lab Test 04/22/25 19:45 04/22/25 19:32 Range/Units Urine Color Dark-brown Yellow Urine Clarity Turbid H Clear Urine pH 5.5 5.0-9.0 Urine Specific [place] 1.025 1.001-1.035 Urine Protein Trace H Negative Urine Ketones Negative Negative Urine Blood Trace H Negative /uL Urine Nitrite 2+ H Negative Urine Bilirubin 1+ H Negative Urine Urobilinogen 6 Negative mg/dL Urine Leukocyte Esterase Negative Negative /uL Urine RBC 11 0 - 4 /hpf Urine Microscopic WBC 8 H 0-5 /HPF Urine Squamous Epithelial Cells Mod <5 /hpf Urine Calcium Oxalate Crystals Few None Seen Urine Bacteria None seen None Seen /hpf Urine Mucus Few None Seen Urine Glucose Normal Normal mg/dL White Blood Count 10.0 4.4-10.8 10^3/uL Red Blood Count 4.28 4.0-5.20 10^6/uL Hemoglobin 13.4 12.2-16.2 g/dL Hematocrit 38.6 36.0-46.0 % Mean Corpuscular Volume 90.1 80.0-100.0 fL Mean Corpuscular Hemoglobin 31.3 28.0-32.0 pg Mean Corpuscular Hemoglobin Concent 34.8 32.0-36.0 g/dL Red Cell Distribution Width 13.5 11.8-14.3 % Platelet Count 372 140-450 10^3/uL Mean Platelet Volume 7.4 6.9-10.8 fL Neutrophils (%) (Auto) 45.9 37.0-80.0 % Lymphocytes (%) (Auto) 44.5 10.0-50.0 % Monocytes (%) (Auto) 6.8 0.0-12.0 % Eosinophils (%) (Auto) 1.4 0.0-7.0 % Basophils (%) (Auto) 1.4 0.0-2.0 % Neutrophils # (Auto) 4.6 1.6-8.6 10 ^3/uL Lymphocytes # (Auto) 4.4 0.4-5.4 10 ^3/uL Monocytes # (Auto) 0.7 0-1.3 10 ^3/uL Eosinophils # (Auto) 0.1 0-0.8 10 ^3/uL Basophils # (Auto) 0.1 0-0.2 10 ^3/uL Nucleated Red Blood Cells 0.1 % Sodium Level 143 136-145 mmol/L Potassium Level 2.8 L 3.5-5.1 mmol/L Chloride Level 103 98-107 mmol/L Carbon Dioxide Level 26 20-31 mmol/L Anion Gap 14 5-15 Blood Urea Nitrogen 11 9-23 mg/dL Creatinine 0.67 0.550-1.02 mg/dL Glomerular Filtration Rate Calc 106 >90 mL/min BUN/Creatinine Ratio 16.4 10.0-20.0 Serum Glucose 142 H 74-106 mg/dL Calcium Level 9.3 8.7-10.4 mg/dL Lipase 44 12-53 U/L Current Medications Medications (Trade) Dose Ordered Sig/Pedro Route Start Time Stop Time Status Last Admin Acetaminophen (Tylenol Tablet) 1,000 mg ONCE ONCE PO 04/22/25 19:30 04/22/25 19:31 DC 04/22/25 21:11 Nitrofurantoin Macrocrystals (Macrobid) 100 mg ONCE ONCE PO 04/22/25 22:45 04/22/25 22:46 DC 04/22/25 23:36 Potassium Chloride (Klor-Con Tablet) 20 meq ONCE ONCE PO 04/22/25 22:45 04/22/25 22:46 DC 04/22/25 23:36 Acetaminophen/ Hydrocodone Bitart ([place] 10/325MG Tab) 1 tab ONCE ONCE PO 04/22/25 23:00 04/22/25 23:01 DC 04/22/25 23:37 X-Ray, Labs, Meds, VS Comment All studies performed the ED were evaluated by me personally. Serum studies were remarkable for mild hypokalemic state, while urinalysis confirmed a small urinary tract infection. Patient received a Guadarrama catheter [facility] only discharge a small amount of urine. I asked the patient if she wanted to maintain the catheter discharge until she follow up with the primary care provider, but the patient refused the catheter and therefore, catheter will be removed prior to the patient leaving the facility. Advised patient follow up with the primary care provider for continued evaluation. Advised antibiotics as directed until completion. Unfortunately, the patient had refused to leave the facility due to fears of sepsis and urine retention concerns. Dr. Tran and I discussed the case extensively and spoke with the patient. We agreed to admit the patient for inpatient evaluation. Time of 1ST Reevaluation: 22:47 Reevaluation 1ST: Improved Consultation: PCP Patient Education/Counseling: Diagnosis, Treatment Family Education/Counseling: Diagnosis, Treatment SEPSIS Sepsis Screen Date sepsis recognized/suspect: Apr 22, 2025 Time Sepsis recognized/suspect: 1912 Recent Procedure: No On Antibiotic Therapy: No Respiratory Rate >20: No Heart Rate >90: Yes Temp<36 C (96.8 F) or >38.3 C: No SBP <90 or MAP <65 mmHG: No New Acute Mental Status Change: No Is the patient on CPAP, BIPAP,: No Physician Orders Insert Guadarrama Catheter QSHIFT (04/22/25 19:22) Kub Abdomen Single View (04/22/25 19:22) Vital Signs Date Time Temp Pulse Resp B/P (MAP) Pulse Ox O2 Delivery O2 Flow Rate FiO2 04/22/25 20:52 74 20 96 Room Air* 0 21 04/22/25 19:11 98.4 96 16 157/104 96 98.4 Laboratory Tests Test 04/22/25 19:32 White Blood Count 10.0 10^3/uL (4.4-10.8) Medications Medications Dose Ordered Sig/Pedro Route Start Time Stop Time Status Last Admin Dose Admin Acetaminophen 1,000 mg ONCE ONCE PO 04/22/25 19:30 04/22/25 19:31 DC 04/22/25 21:11 Acetaminophen/ Hydrocodone Bitart 1 tab ONCE ONCE PO 04/22/25 23:00 04/22/25 23:01 DC 04/22/25 23:37 Nitrofurantoin Macrocrystals 100 mg ONCE ONCE PO 04/22/25 22:45 04/22/25 22:46 DC 04/22/25 23:36 Potassium Chloride 20 meq ONCE ONCE PO 04/22/25 22:45 04/22/25 22:46 DC 04/22/25 23:36 Departure 1 Departure Time of Disposition: 22:49 Impression: Primary Impression: Urinary tract infection Additional Impression: Urine retention Disposition: ADMITTED INPATIENT Condition: Stable Discharged With: Self, Friend Critical Care Note Critical Care Time?: No Stability Stability form required: No Heart Score Heart Score: Heart Score Response (Comments) Value History N/A 0 EKG N/A 0 Age N/A 0 Risk Factors N/A 0 Troponin N/A 0 Total 0 BARBRA MAI PAC Apr 22, 2025 22:51
[2025-04-22] MEDS: LACTULOSE 20Gm/30ML SOLN PO ONE (23:30)
[2025-04-22] MEDS: POTASSIUM CHL 20 Meq TABLET PO ONE (23:36)
[2025-04-22] MEDS: HYDROcodone-ACET 10/325MG TAB PO ONE (23:37)
[2025-04-23] MEDS ORDERED: NITROGLYCERIN 0.4 MG SL TAB SL PRN (01:00)
[2025-04-23] MEDS ORDERED: MORPHINE SULFATE INJ 2 MG/ml SYRG IV PRN ×2 (01:00→14:45)
[2025-04-23] MEDS ORDERED: ONDANSETRON HCL 4 MG/2 ML VIAL IV PRN (01:00)
[2025-04-23] MEDS ORDERED: DOCUSATE SOD 100 MG CAP PO PRN (01:00)
[2025-04-23] MEDS ORDERED: ACETAMINOPHEN 325 MG TAB PO PRN (01:00)
[2025-04-23] MEDS: PANTOPRAZOLE 40 MG/10 ML VIAL INJ IV ONE (01:00)
[2025-04-23] MEDS: FLEET ENEMA(ADULT) 135 ML PR ONE (01:45)
--- NOTE | 2025-04-23 01:46 | DVHHP2 ---
History of Present Illness Reason for Visit: Urinary tract infection History of Present Illness The patient is a 49-year-old female with multiple past medical history including hypertension, UTIs, IBS, and gastritis who presented to [facility] ED with complaint of urinary retention. Patient reports she has been expe riencing difficulty passing urine associated with abdominal pain, back pain, and lower extremity swelling for the past few days. Patient reports she was discharged from [facility] home April 18, 2025 with oral vancomycin for management of C diff. patient was seen and evaluated in the ED, laboratory data shows WBC 10.0, platelets 372, sodium 143, potassium 2.8, BUN 11, creatinine 0.67, glucose 142, calcium 9.3, lipase 44, blood pressure 157/104, heart rate 74, temperature 98.4 F, O2 saturation 96% on room air. Urinalysis positive for urinary tract infection. Chest/abdomen x-ray revealing pedicle screws and rods in place at L4- 5 with intervertebral space visualized; surgical clips in the right upper quadrant likely from previous cholecystectomy; stool throughout the transverse left and rectosigmoid colon may represent constipation. Patient was started on IV antibiotic regimen, please see medication orders section in the computer. On my assessment, patient denied chest pain, no headache, dizziness, diaphoresis, shortness of breath, no nausea, vomiting, fever, chills. Patient was admitted for further evaluation and medical management. Past Medical History HTN, UTIs, hypothyroidism, Bradycardia, Papilledema, IBS, SBO, Peripheral Neuropathy, Hiatal hernia, Esophagitis, Gastritis, C diff colitis Past Surgical History Spinal fusion surgery, Cholecystectomy, Hernia Repair, Hysterectomy, Tubal Ligation, Small and large intestine resection, Family History Reviewed, noncontributory to the management of this case. Past Social History The patient lives at home, smokes cigarettes, denies alcohol or illicit drugs abuse. Review of Systems Constitutional: Yes: Weakness; No: Fever, Chills, Sweats, Malaise, Other Eyes: No: Pain, Vision change, Conjunctivae inflammation, Eyelid inflammation, Other, Redness ENT: No: Ear pain, Ear discharge, Nose pain, Nose discharge, Nose congestion, Mouth pain, Mouth swelling, Throat pain, Throat swelling, Other Respiratory: No: Cough, Dry, Shortness of breath, SOB with excertion, Wheezing, Hemoptysis, Pleuritic Pain, Sputum, Wheezing, Other Cardiovascular: No: Chest Pain, Palpitations, Orthopnea, Paroxysmal Noc. Dyspnea, Edema, Lt Headedness, Other Gastrointestinal: Abdominal Pain, Constipation; No: Nausea, Vomiting, Diarrhea, Melena, Hematochezia, Other Genitourinary: Dysuria; No Frequency, No Incontinence, No Hematuria; Retention; No Other Musculoskeletal: back pain; No: other, neck pain, shoulder pain, arm pain, hand pain, leg pain, foot pain Skin: No: Rash, Lesions, Jaundice, Bruising, Other Neurological: No: Weakness, Numbness, Incoordination, Change in speech, Confusion, Seizures, Other Allergies: Coded Allergies: NO KNOWN ALLERGIES (Unverified , 05/10/14) Exam Vital Signs Vital Signs Date Time Temp Pulse Resp B/P (MAP) Pulse Ox O2 Delivery O2 Flow Rate FiO2 04/22/25 20:52 74 20 96 Room Air* 0 21 04/22/25 19:11 98.4 157/104 98.4 General Appearance: Alert, Oriented X3, Cooperative, No acute distress HEENT: Atraumatic, PERRLA, EOMI, Mucous membr. moist/pink Respiratory: Clear to auscultation, Normal air movement Cardiovascular: Regular rate, Normal S1, Normal S2, No murmurs Abdominal: Normal bowel sounds, Soft, No hepatospenomegaly, No masses, Other (Reports tenderness) Extremities: No clubbing, No cyanosis, No edema, Normal pulses, Other (Lower extremity swelling) Skin: No rashes, No breakdown, No significant lesion Neuro: Normal speech, Normal tone, Sensation intact, Cranial nerves 3-12 NL, Reflexes 2+, Other (Weakness) Psych/Mental Status: Mental status NL, Mood NL Labs/Xrays Labs Test 04/22/25 19:45 04/22/25 19:32 Range/Units Urine Color Dark-brown Yellow Urine Clarity Turbid H Clear Urine pH 5.5 5.0-9.0 Urine Specific [place] 1.025 1.001-1.035 Urine Protein Trace H Negative Urine Ketones Negative Negative Urine Blood Trace H Negative /uL Urine Nitrite 2+ H Negative Urine Bilirubin 1+ H Negative Urine Urobilinogen 6 Negative mg/dL Urine Leukocyte Esterase Negative Negative /uL Urine RBC 11 0 - 4 /hpf Urine Microscopic WBC 8 H 0-5 /HPF Urine Squamous Epithelial Cells Mod <5 /hpf Urine Calcium Oxalate Crystals Few None Seen Urine Bacteria None seen None Seen /hpf Urine Mucus Few None Seen Urine Glucose Normal Normal mg/dL White Blood Count 10.0 4.4-10.8 10^3/uL Red Blood Count 4.28 4.0-5.20 10^6/uL Hemoglobin 13.4 12.2-16.2 g/dL Hematocrit 38.6 36.0-46.0 % Mean Corpuscular Volume 90.1 80.0-100.0 fL Mean Corpuscular Hemoglobin 31.3 28.0-32.0 pg Mean Corpuscular Hemoglobin Concent 34.8 32.0-36.0 g/dL Red Cell Distribution Width 13.5 11.8-14.3 % Platelet Count 372 140-450 10^3/uL Mean Platelet Volume 7.4 6.9-10.8 fL Neutrophils (%) (Auto) 45.9 37.0-80.0 % Lymphocytes (%) (Auto) 44.5 10.0-50.0 % Monocytes (%) (Auto) 6.8 0.0-12.0 % Eosinophils (%) (Auto) 1.4 0.0-7.0 % Basophils (%) (Auto) 1.4 0.0-2.0 % Neutrophils # (Auto) 4.6 1.6-8.6 10 ^3/uL Lymphocytes # (Auto) 4.4 0.4-5.4 10 ^3/uL Monocytes # (Auto) 0.7 0-1.3 10 ^3/uL Eosinophils # (Auto) 0.1 0-0.8 10 ^3/uL Basophils # (Auto) 0.1 0-0.2 10 ^3/uL Nucleated Red Blood Cells 0.1 % Sodium Level 143 136-145 mmol/L Potassium Level 2.8 L 3.5-5.1 mmol/L Chloride Level 103 98-107 mmol/L Carbon Dioxide Level 26 20-31 mmol/L Anion Gap 14 5-15 Blood Urea Nitrogen 11 9-23 mg/dL Creatinine 0.67 0.550-1.02 mg/dL Glomerular Filtration Rate Calc 106 >90 mL/min BUN/Creatinine Ratio 16.4 10.0-20.0 Serum Glucose 142 H 74-106 mg/dL Calcium Level 9.3 8.7-10.4 mg/dL Lipase 44 12-53 U/L PATIENT: BEVERLY SPARKSCCT: [id number] UNIT: [id number] : 1975 LOC: ER ROOM / BED: / AGE / SEX: 49 / F ADM STATUS: REG ER SERVICE 21 ORDERING PHYSICIAN: BARBRA MAI PAC PROCEDURE(s): KUB - KUB ABDOMEN SINGLE VIEW REASON: Constipation ORDER NUMBER(s): [id number], ACCESSION NUMBER(s): [id number] Date: 04/22/2025 07:47 PM Examination: XY KUB ABDOMEN SINGLE VIEW History: Constipation Comparison: XY KUB ABDOMEN SINGLE VIEW on DOS: 01/24/24 TECHNIQUE: Frontal views of the abdomen was obtained. FINDINGS: Bowel gas pattern is unremarkable. The lung bases are unremarkable. No acute osseous abnormality identified. Pedicle screws and rods are in place at L4-5 with intervertebral spacer visualized. IMPRESSION: 1. Pedicle screws and rods in place at L4-5 with intervertebral spacer visualized. 2. Surgical clips in the right upper quadrant likely from previous cholecystectomy. 3. Stool throughout the transverse left and rectosigmoid colon may represent constipation. SEPSIS Sepsis Screen Date sepsis recognized/suspect: Apr 22, 2025 Time Sepsis recognized/suspect: 1912 Recent Procedure: No On Antibiotic Therapy: No Respiratory Rate >20: No Heart Rate >90: Yes Temp<36 C (96.8 F) or >38.3 C: No SBP <90 or MAP <65 mmHG: No New Acute Mental Status Change: No Is the patient on CPAP, BIPAP,: No Physician Orders Insert Guadarrama Catheter QSHIFT (04/22/25 19:22) Kub Abdomen Single View (04/22/25 19:22) Complete Blood Count (04/23/25 04:00) Comprehensive Metabolic Panel (04/23/25 04:00) Urine Bacterial Culture (04/23/25 00:48) Ertapenem 1gm Ivpb Daily (04/23/25 10:00) Pantoprazole (Protonix) (04/23/25 01:00) Vital Signs Date Time Temp Pulse Resp B/P (MAP) Pulse Ox O2 Delivery O2 Flow Rate FiO2 04/22/25 20:52 74 20 96 Room Air* 0 21 04/22/25 19:11 98.4 96 16 157/104 96 98.4 Laboratory Tests Test 04/22/25 19:32 White Blood Count 10.0 10^3/uL (4.4-10.8) Medications Medications Dose Ordered Sig/Pedro Route Start Time Stop Time Status Last Admin Dose Admin Acetaminophen 1,000 mg ONCE ONCE PO 04/22/25 19:30 04/22/25 19:31 DC 04/22/25 21:11 1,000 MG Acetaminophen/ Hydrocodone Bitart 1 tab ONCE ONCE PO 04/22/25 23:00 04/22/25 23:01 DC 04/22/25 23:37 1 TAB Nitrofurantoin Macrocrystals 100 mg ONCE ONCE PO 04/22/25 22:45 04/22/25 22:46 DC 04/22/25 23:36 100 MG Potassium Chloride 20 meq ONCE ONCE PO 04/22/25 22:45 04/22/25 22:46 DC 04/22/25 23:36 20 MEQ Assessment/Plan Assessment/Plan Urinary tract infection Urine retention Hypokalemia Constipation Abdominal pain Plan 1. Admit to med surge unit 2. Breathing treatment 3. Pain control management 4. IV antibiotic management 5. Management of fluids and electrolytes 6. Consultation for Urology 7. Diagnostic test chest/abdomen x-ray 8. DVT prophylaxis-on SCDs 9. Repeat labs CBC, CMP in a.m. 10. Home medication reviewed and reconciled 11. Continue with current medical management 12. Treatment plan discussed with patient and RN. Patient verbalized understanding. Plan discussed with: Patient, Other (RN) My Orders Orders - CHARAN GLEZ DNP Procedure Category Date Status Time Complete Blood Count LAB 04/23/25 Verified 04:00 Comprehensive LAB 04/23/25 Verified Metabolic Panel 04:00 Urine Bacterial ONEISMO 04/23/25 Verified Culture 00:48 Ertapenem 1gm Ivpb PHA 04/23/25 Verified Daily 10:00 Pantoprazole PHA 04/23/25 Verified (Protonix) 01:00 Problem List: (1) Urinary tract infection (2) Urine retention (3) Hypokalemia (4) Constipation (5) Abdominal pain Date of Service: Apr 23, 2025 Billing Provider: CHARAN GLEZ DNP Common Visit Codes: [id number] INP/OBS CARE (HIGH) CHARAN GLEZ DNP Apr 23, 2025 01:46
[2025-04-23] MEDS: GABAPENTIN 300 MG CAP PO SCH (06:18)
[2025-04-23 08:45] LABS: Hematocrit 39.4 % (36.0-46.0); Hemoglobin 13.6 g/dL (12.2-16.2); Mean Corpuscular Hemoglobin 31.2 pg (28.0-32.0); Mean Corpuscular Volume 90.6 fL (80.0-100.0); Nucleated Red Blood Cells % 0.0 %
[2025-04-23 09:00] VITALS: BP 151/83; PULSE 65; RESP 18; TEMP 98.9; O2SAT 99
[2025-04-23 09:02] LABS: Albumin 4.2 g/dL (3.2-4.8); Alkaline Phosphatase 100 U/L (46-116); Anion Gap 11 (5-15); BUN/Creatinine Ratio 20.0 (10.0-20.0); Bilirubin, Total 0.4 mg/dL (0.2-1.0); Blood Urea Nitrogen 11 mg/dL (9-23); Calcium 9.3 mg/dL (8.7-10.4); Carbon Dioxide 27 mmol/L (20-31); Chloride 104 mmol/L (98-107); Glucose 104 mg/dL (74-106); Potassium 3.5 mmol/L (3.5-5.1); Sodium 142 mmol/L (136-145); Total Protein 6.7 g/dL (5.7-8.2)
[2025-04-23 09:03] LABS: Alanine Aminotransferase 48 U/L (7-40)
[2025-04-23 09:53] VITALS: PULSE 65; RESP 16; O2SAT 99
[2025-04-23] MEDS: PANTOPRAZOLE 40 MG/10 ML VIAL INJ IV SCH (10:12)
[2025-04-23] MEDS: POTASSIUM CHL 20 Meq TABLET PO ONE (10:12)
[2025-04-23] MEDS: HYDROcodone-ACET 5/325MG TAB PO PRN (10:12)
[2025-04-23] MEDS: SOD CHL 0.45% 1,000 ML IV SCH (10:13)
[2025-04-23] MEDS: LOSARTAN POTASSIUM 50 MG TAB PO SCH (10:21)
--- NOTE | 2025-04-23 10:33 | DVHINCON2 ---
Date of service: Apr 23, 2025 Referring Physician Hospitalist Reason for Consultation Urinary retention History of Present Illness This morbidly obese 49-year-old female who arrives the ED today for evaluation of urine retention concerns as well as back pain over the past few days is admitted and urology consulted. Patient states she can not pass urine but only in scant amounts. Patient denies any fever but states has been intermittent nausea. Patient was hypertensive at arrival. Chief Complaint: Urinary Primary Care Provider: DR ROCK Reviewed notes: Nurses Notes Allergies: Coded Allergies: NO KNOWN ALLERGIES (Unverified , 05/10/14) Home Meds Active Scripts Ibuprofen Micronized (Ibuprofen) 800 Mg Tab, 800 MG PO Q8HP PRN, #20 TAB Prov:BARBRA MAI PAC 04/22/25 Nitrofurantoin Monohydrate Mac (Macrobid) 100 Mg Cap, 100 MG PO BID for 5 Days, #10 CAP Prov:BARBRA MAI PAC 04/22/25 Simethicone (Gas Relief) 80 Mg Chw, 80 MG PO Q6HP PRN, #20 TAB.CHEW Prov:STEVAN VERAS MD 04/18/25 Vancomycin HCl (Vancomycin HCl) 125 Mg Cap, 125 MG PO Q6HR, #98 CAP 125 mg 4 times a day for 2 weeks then 3 times a day for 1 week then twice a day for 1 week then once a day for 1 week Prov:STEVAN VERAS MD 04/18/25 Acetazolamide (Diamox) 250 Mg Tb, 500 MG PO Q12HR for 30 Days, #120 TAB Prov:JACQUELINE PERDOMO MD 03/15/25 Cholestyramine (QUESTRAN POWDER) 4 Gm Pw, 4 GM PO BID for 14 Days, #28 POW Prov:STEVAN VERAS MD 10/02/24 Dicyclomine Hcl (BENTYL CAPSULE) 10 Mg Cp, 1 CAP PO TID, #90 CAP 11 Refills Prov:NICHO COELLO 01/05/24 Docusate Sodium (Colace) 100 Mg Cap, 1 CAP PO BID, #60 CAP Prov:STEVAN VERAS MD 10/28/23 Pantoprazole Sodium Sesquihydr (Protonix) 40 Mg Tab, 40 MG PO DAILY for 7 Days, #7 TAB Prov:CHANTAL STEWART MD 10/14/23 Reported Medications Simethicone (Simethicone) 80 Mg Chw, 80 MG PO TID, TAB.CHEW 03/12/25 Albuterol Sulfate (VENTOLIN MDI) 90 Mcg Ih, 90 MCG IN, INH 03/12/25 Alprazolam (Alprazolam) 1 Mg Tab, 1 TAB PO TID, #90 TAB 03/12/25 Tizanidine Hydrochloride (Zanaflex) 4 Mg Cap, 6 MG PO TID, CAP 03/12/25 Hydrocodone-Acetaminophen (Hydrocodone Bitartrate/AC 10-325 mg) 1 Tab Tab, 1 TAB PO QID PRN for PAIN SCALE 7 THRU 10, TAB 09/25/24 Hctz (Hydrochlorothiazide) 25 Mg Tab, 25 MG PO DAILY, TAB 09/25/24 Losartan Potassium (Losartan Potassium) 100 Mg Tab, 100 MG PO DAILY for 30 Days, MG 09/25/24 Famotidine (Famotidine) 40 Mg Tab, 1 TAB PO QHSP PRN 08/07/24 Tamsulosin Hcl (Tamsulosin Hcl) 0.4 Mg Cap, 1 CAP PO DAILY 08/07/24 Duloxetine Hcl (Cymbalta) 60 Mg Cap, 1 CAP PO DAILY, #90 CAP 3 Refills 01/30/24 Sennosides-Docusate Sodium (Senokot S) 1 Tab Tab, 1 TAB PO BID, #30 TAB 10/14/23 Gabapentin (Gabapentin) 600 Mg Tab, 1 TAB PO TID, #90 TAB 3 Refills 10/14/23 Information Source: Patient Mode of Arrival: Ambulatory Severity: Moderate Inability to void: Moderate Timing: Days Duration: Since onset Prehospital treatment: None Onset: Spontaneous Symptoms: Dysuria, Inability to void Location: Abdomen associated signs and symptoms: Abdominal Pain, Nausea Past Medical History Morbid obesity HTN Past Surgical History Cholecystectomy, Hernia Repair, Hysterectomy, Tubal Ligation [employer]OR History: Denies all [employer]OR Hx, Other Family History: Diabetes mellitus G8 MOTHER G8 FATHER FH: cancer Hypertension G8 MOTHER G8 FATHER Social History Smoker: Cigarettes Alcohol: Denies ETOH Use Drugs: Denies Drug Use Lives In: Home Allergies: Coded Allergies: NO KNOWN ALLERGIES (Unverified , 05/10/14) Home Meds Active Scripts Simethicone (Gas Relief) 80 Mg Chw, 80 MG PO Q6HP PRN, #20 TAB.CHEW Prov:STEVAN VERAS MD 04/18/25 Vancomycin HCl (Vancomycin HCl) 125 Mg Cap, 125 MG PO Q6HR, #98 CAP 125 mg 4 times a day for 2 weeks then 3 times a day for 1 week then twice a day for 1 week then once a day for 1 week Prov:STEVAN VERAS MD 04/18/25 Acetazolamide (Diamox) 250 Mg Tb, 500 MG PO Q12HR for 30 Days, #120 TAB Prov:JACQUELINE PERDOMO MD 03/15/25 Cholestyramine (QUESTRAN POWDER) 4 Gm Pw, 4 GM PO BID for 14 Days, #28 POW Prov:STEVAN VERAS MD 10/02/24 Dicyclomine Hcl (BENTYL CAPSULE) 10 Mg Cp, 1 CAP PO TID, #90 CAP 11 Refills Prov:NICHO COELLO RIVETER PNEUMATIC 01/05/24 Docusate Sodium (Colace) 100 Mg Cap, 1 CAP PO BID, #60 CAP Prov:STEVAN VERAS MD 10/28/23 Pantoprazole Sodium Sesquihydr (Protonix) 40 Mg Tab, 40 MG PO DAILY for 7 Days, #7 TAB Prov:CHANTAL STEWART MD 10/14/23 Reported Medications Simethicone (Simethicone) 80 Mg Chw, 80 MG PO TID, TAB.CHEW 03/12/25 Albuterol Sulfate (VENTOLIN MDI) 90 Mcg Ih, 90 MCG IN, INH 03/12/25 Alprazolam (Alprazolam) 1 Mg Tab, 1 TAB PO TID, #90 TAB 03/12/25 Tizanidine Hydrochloride (Zanaflex) 4 Mg Cap, 6 MG PO TID, CAP 03/12/25 Hydrocodone-Acetaminophen (Hydrocodone Bitartrate/AC 10-325 mg) 1 Tab Tab, 1 TAB PO QID PRN for PAIN SCALE 7 THRU 10, TAB 09/25/24 Hctz (Hydrochlorothiazide) 25 Mg Tab, 25 MG PO DAILY, TAB 09/25/24 Losartan Potassium (Losartan Potassium) 100 Mg Tab, 100 MG PO DAILY for 30 Days, MG 09/25/24 Famotidine (Famotidine) 40 Mg Tab, 1 TAB PO QHSP PRN 08/07/24 Tamsulosin Hcl (Tamsulosin Hcl) 0.4 Mg Cap, 1 CAP PO DAILY 08/07/24 Duloxetine Hcl (Cymbalta) 60 Mg Cap, 1 CAP PO DAILY, #90 CAP 3 Refills 01/30/24 Sennosides-Docusate Sodium (Senokot S) 1 Tab Tab, 1 TAB PO BID, #30 TAB 10/14/23 Gabapentin (Gabapentin) 600 Mg Tab, 1 TAB PO TID, #90 TAB 3 Refills 10/14/23 Current Medications Current Medications Medications (Trade) Dose Ordered Sig/Pedro Route PRN Reason Start Time Stop Time Status Last Admin Ertapenem 1 gm/ Sodium Chloride 50 ml @ 100 mls/hr DAILY IV 04/23/25 10:00 05/03/25 09:59 Pantoprazole Sodium (Protonix) 40 mg DAILY IV 04/23/25 10:00 04/23/25 10:12 Hydralazine HCl (Apresoline Injection) 10 mg Q6HP PRN IV SBP>150 04/23/25 01:00 Losartan Potassium (Cozaar Tablet) 50 mg DAILY PO 04/23/25 10:00 04/23/25 10:21 Acetaminophen/ Hydrocodone Bitart ([place] 5/325MG Tab) 1 tab Q4HP PRN PO MODERATE PAIN (4-6 PAIN SCALE) 04/23/25 01:00 04/23/25 10:12 Ondansetron HCl (Zofran) 4 mg Q4HP PRN IV NAUSEA / VOMITING 04/23/25 01:00 Docusate Sodium (Colace Capsule) 100 mg BIDPRN PRN PO FOR CONSTIPATION 04/23/25 01:00 Acetaminophen (Tylenol Tablet) 650 mg Q6HP PRN PO PAIN SCALE 1-3 OR TEMP>100.4 04/23/25 01:00 Nitroglycerin (Ntrostat Sublingual) 0.4 mg Q5MINP PRN SL FOR CHEST PAIN 04/23/25 01:00 Morphine Sulfate 2 mg Q30M PRN IV FOR CHEST PAIN 04/23/25 01:00 Sodium Chloride 1,000 ml @ 60 mls/hr [id number] IV 04/23/25 01:00 04/23/25 10:13 Gabapentin (Neurontin Capsule) 600 mg TID PO 04/23/25 06:00 04/23/25 06:18 Review of Systems Constitutional: denies: chills, diaphoresis, fatigue, fever, malaise, sweats, weakness, others EENTM: denies: blurred vision, double vision, ear bleeding, ear discharge, ear drainage, ear pain, ear ringing, eye pain, eye redness, hearing loss, mouth pain, mouth swelling, nasal discharge, nose bleeding, nose congestion, nose pain, photophobia, tearing, throat pain, throat swelling, voice changes, others Respiratory: denies: cough, hemoptysis, orthopnea, SOB at rest, shortness of breath, SOB with excertion, stridor, wheezing, others Cardiovascular: denies: chest pain, dizzy spells, diaphoresis, Dyspnea on exertion, edema, irregular heart beat, left arm pain, lightheadedness, palpitations, PND, syncope, others Gastrointestinal: denies: abdomen distended, abdominal pain, blood streaked bowels, constipated, diarrhea, dysphagia, difficulty swallowing, hematemesis, melena, nausea, poor appetite, poor fluid intake, rectal bleeding, rectal pain, vomiting, others Genitourinary: reports: dysuria, others (Urine retention); denies: abnormal vagina bleeding, burning, dyspareunia, flank pain, frequency, hematuria, incontinence, pain, , vagina discharge, urgency Neurological: denies: dizziness, fainting, headache, left sided numbness, left sided weakness, numbness, paresthesia, pre-existing deficit, right sided numbness, right sided weakness, seizure, speech problems, tingling, tremors, weakness, others Musculoskeletal: denies: back pain, gout, joint pain, joint swelling, muscle pain, muscle stiffness, neck pain, others Integumetry: denies: bruises, change in color, change in hair/nails, dryness, laceration, lesions, lumps, rash, wounds, others Allergic/Immunocompromised: denies: Difficulty Healing, Frequent Infections, Hives, Itching, others Hematologic/Lymphatic: denies: anemia, blood clots, easy bleeding, easy bruising, swollen glands, others Endocrine: denies: excessive hunger, excessive sweating, excessive thirst, excessive urination, flushing, intolerance to cold, intolerance to heat, unexplained weight gain, unexplained weight loss, others Psychiatric: denies: anxiety, bipolar disorder, depression, hopeless, panic disorder, schizophrenia, sleepless, suicidal, others Vital Signs Vital Signs Date Time Temp Pulse Resp B/P (MAP) Pulse Ox O2 Delivery O2 Flow Rate FiO2 04/23/25 10:21 151/83 04/22/25 20:52 74 20 96 Room Air* 0 21 04/22/25 19:11 98.4 98.4 Physical Exam General Appearance: Moderate Distress (Thma-ba-crezabwg distress due to retention discomfort concerns.), Normal HEENT: Normal ENT Inspection, Pharynx Normal, TMs Normal Neck: Full Range of Motion, Non-Tender, Normal, Normal Inspection Respiratory: Chest Non-Tender, Lungs Clear, No Accessory Muscle Use, No Respiratory Distress, Normal Breath Sounds Cardiovascular: No Edema, No JVD, No Murmur, No Gallop, Normal Peripheral Pulses, Regular Rate/Rhythm Breast Exam: Deferred Gastrointestinal: Other (Diffuse bilateral abdominal/pelvic tenderness to palpation throughout. Difficult to assess due to body habitus. No pulsatile masses.) Genitalia: Deferred Pelvic: Deferred Rectal: Deferred Extremities: No calf tenderness, Normal inspection Neurologic: Alert Cerebellar Function: NOT DONE Reflexes: NOT DONE Skin: Dry, Normal Color, Warm Lymphatic: No Adenopathy Labs/Diagnostic Data Labs Test 04/23/25 08:01 04/22/25 19:45 04/22/25 19:32 Range/Units White Blood Count 7.1 # 4.4-10.8 10^3/uL Red Blood Count 4.35 4.0-5.20 10^6/uL Hemoglobin 13.6 12.2-16.2 g/dL Hematocrit 39.4 36.0-46.0 % Mean Corpuscular Volume 90.6 80.0-100.0 fL Mean Corpuscular Hemoglobin 31.2 28.0-32.0 pg Mean Corpuscular Hemoglobin Concent 34.4 32.0-36.0 g/dL Red Cell Distribution Width 13.0 11.8-14.3 % Platelet Count 367 140-450 10^3/uL Mean Platelet Volume 7.6 6.9-10.8 fL Neutrophils (%) (Auto) 48.3 37.0-80.0 % Lymphocytes (%) (Auto) 42.7 10.0-50.0 % Monocytes (%) (Auto) 6.6 0.0-12.0 % Eosinophils (%) (Auto) 1.3 0.0-7.0 % Basophils (%) (Auto) 1.1 0.0-2.0 % Neutrophils # (Auto) 3.4 1.6-8.6 10 ^3/uL Lymphocytes # (Auto) 3.0 0.4-5.4 10 ^3/uL Monocytes # (Auto) 0.5 0-1.3 10 ^3/uL Eosinophils # (Auto) 0.1 0-0.8 10 ^3/uL Basophils # (Auto) 0.1 0-0.2 10 ^3/uL Nucleated Red Blood Cells 0.0 % Sodium Level 142 136-145 mmol/L Potassium Level 3.5 3.5-5.1 mmol/L Chloride Level 104 98-107 mmol/L Carbon Dioxide Level 27 20-31 mmol/L Anion Gap 11 5-15 Blood Urea Nitrogen 11 9-23 mg/dL Creatinine 0.55 0.550-1.02 mg/dL Glomerular Filtration Rate Calc 112 >90 mL/min BUN/Creatinine Ratio 20.0 10.0-20.0 Serum Glucose 104 74-106 mg/dL Calcium Level 9.3 8.7-10.4 mg/dL Total Bilirubin 0.4 0.2-1.0 mg/dL Aspartate Amino Transferase (AST) 17 13-40 U/L Alanine Aminotransferase (ALT) 48 H 7-40 U/L Alkaline Phosphatase 100 46-116 U/L Total Protein 6.7 5.7-8.2 g/dL Albumin 4.2 3.2-4.8 g/dL Urine Color Dark-brown Yellow Urine Clarity Turbid H Clear Urine pH 5.5 5.0-9.0 Urine Specific [place] 1.025 1.001-1.035 Urine Protein Trace H Negative Urine Ketones Negative Negative Urine Blood Trace H Negative /uL Urine Nitrite 2+ H Negative Urine Bilirubin 1+ H Negative Urine Urobilinogen 6 Negative mg/dL Urine Leukocyte Esterase Negative Negative /uL Urine RBC 11 0 - 4 /hpf Urine Microscopic WBC 8 H 0-5 /HPF Urine Squamous Epithelial Cells Mod <5 /hpf Urine Calcium Oxalate Crystals Few None Seen Urine Bacteria None seen None Seen /hpf Urine Mucus Few None Seen Urine Glucose Normal Normal mg/dL Lipase 44 12-53 U/L PATIENT: BEVERLY SPARKSCCT: [id number] UNIT: [id number] : 1975 LOC: ER ROOM / BED: / AGE / SEX: 49 / F ADM STATUS: REG ER SERVICE [id number] ORDERING PHYSICIAN: LEOPOLDO RIVERA RESIDENT PROCEDURE(s): ABPL - CT AB PEL WO CON-NO ORAL OR IV REASON: Abdominal pain ORDER NUMBER(s): [id number], ACCESSION NUMBER(s): [id number] Exam: CT CT AB PEL WO CON-NO ORAL OR IV History: Abdominal pain Comparison Study: CT CT AB PEL WO CON-NO ORAL OR IV on DOS: 11/01/24, CT CT AB PEL WO CON-NO ORAL OR IV on DOS: 09/25/24, CT CT AB PEL WO CON-NO ORAL OR IV on DOS: 08/07/24, CT CT AB PEL WO CON-NO ORAL OR IV on DOS: 07/28/24, CT CT AB PEL WO CON-NO ORAL OR IV on DOS: 07/12/24 TECHNIQUE: Multidetector CT of the abdomen and pelvis was performed from lung bases to pubic symphysis. Imaging was performed without IV contrast. Axial, coronal, and sagittal multiplanar reformats were obtained from the axial data set by the technologist. RADIATION DOSE: CTDI vol 11.77 mGy. DLP 609.7 mGy.cm Findings: Limited evaluation of the solid organs in the absence of IV contrast. Lungs: There is basilar atelectasis/scarring. Liver: Redemonstrated hepatic cysts and additional too small to characterize hepatic lesions. Spleen: Unremarkable. Pancreas: Unremarkable. Gallbladder: Prior cholecystectomy. Adrenals: Unremarkable Kidneys: Punctate nonobstructing right nephrolithiasis. No hydronephrosis. Pelvic Viscera: Prior hysterectomy. Vasculature: Mild atherosclerotic vascular calcifications. Retroperitoneum: Unremarkable. Bowel: Colonic diverticulosis without CT evidence of diverticulitis. Postsurgical changes about the bowel. No bowel obstruction. Small hiatal hernia. Musculoskeletal: Posterior fusion hardware spans L4-5. Associated streak artifact degrades evaluation. Soft tissues: Small fat containing ventral abdominal wall hernia. Impression: 1. No acute abdominopelvic abnormality. 2. Incidental findings as detailed. ATED BY: JANN REICH MD DICTATED DATE/TIME: 04/12/252004 SIGNED BY: JANN REICH MD SIGNED DATE/TIME: 04/12/252004 CC: Assessment Urinary retention Morbid obesity Plan/Recommendation [place] to gravity May discharge to home with catheter to leg bag Schedule outpatient diagnostic cystoscopy and urodynamics in the office Plan discussed with: Patient, Other CLIFTON LEIJA MD Apr 23, 2025 10:33
[2025-04-23] MEDS: ERTAPENEM SOD INJ 1 GM in SODIUM CHL 0.9% 50 ML IV SCH (11:57)
[2025-04-23 13:00] VITALS: BP 145/63; PULSE 69; RESP 16; TEMP 96.3; O2SAT 99
[2025-04-23] MEDS: HYDROcodone-ACET 10/325MG TAB PO PRN (15:34)
[2025-04-23] MEDS ORDERED: HYDROMORPHONE HCL 1 MG/ML INJ IV PRN (16:30)
[2025-04-23] MEDS: HYDROmorphone HCL 2 MG/ML VL/or syr IV PRN ×2 (17:38→22:48)
[2025-04-23 21:00] VITALS: BP 121/91; PULSE 71; RESP 18; TEMP 97.9; O2SAT 97
[2025-04-24] VITALS (7 sets, daily range): BP systolic 110–159; BP diastolic 71–103; PULSE 59–89; RESP 17–20; TEMP 97.6–98.4; O2SAT 97–99
[2025-04-24] MEDS: ALPRAZolam 0.5 MG TAB PO PRN ×2 (01:46→21:43)
[2025-04-24] MEDS: hydrALAZINE HCL 20 MG/ML VL IV PRN (01:51)
[2025-04-24 06:32] LABS: Hematocrit 36.0 % (36.0-46.0); Hemoglobin 12.2 g/dL (12.2-16.2); Mean Corpuscular Hemoglobin 31.1 pg (28.0-32.0); Mean Corpuscular Volume 91.9 fL (80.0-100.0); Nucleated Red Blood Cells % 0.0 %
[2025-04-24 06:46] LABS: Alanine Aminotransferase 32 U/L (7-40); Alkaline Phosphatase 82 U/L (46-116); Anion Gap 9 (5-15); BUN/Creatinine Ratio 16.0 (10.0-20.0); Carbon Dioxide 26 mmol/L (20-31); Glucose 91 mg/dL (74-106); Sodium 143 mmol/L (136-145); Total Protein 5.8 g/dL (5.7-8.2)
[2025-04-24 06:47] LABS: Albumin 3.6 g/dL (3.2-4.8)
[2025-04-24 06:51] LABS: Bilirubin, Total 0.2 mg/dL (0.2-1.0); Blood Urea Nitrogen 8 mg/dL (9-23); Calcium 8.5 mg/dL (8.7-10.4); Chloride 108 mmol/L (98-107); Potassium 3.4 mmol/L (3.5-5.1)
[2025-04-24] MEDS: MELATONIN 5 MG TAB PO ONE (08:04)
--- NOTE | 2025-04-24 16:50 | DVHINCON2 ---
Consultation - Surgical Date Seen: Apr 25, 2025 Referring Physician Reason for Consultation Rectal prolapse History of Present Illness History of Present Illness Mrs. Schmitz is a 49-year-old female who presented to the hospital due to recurrent UTI. I was consulted due to rectal prolapse. Patient has had this issue with prolapsing rectum for awhile, she is able to manually reduce it. States that she has had many issues with C diff infections in the past and at 1 point saw a colorectal surgeon that recommended total colectomy, but she did not think it was adequate. She suffers from constipation, takes lactulose 4 times a day and duct senna; her stools are small and stringy. No blood in the stools. She is tired of having to reduce her prolapse, given that every time she sits on the toilet and bears down the prolapse comes out. Denies any hemorrhoid history. Past Medical/Surgical History Past Medical/Surgical History Past medical history: HTN, recurrent UTIs, hypothyroidism, Bradycardia, Papilledema, IBS, SBO, Peripheral Neuropathy, Hiatal hernia, Esophagitis, Gastritis, C diff colitis Past surgical history: Spinal fusion surgery, Cholecystectomy, Hernia Repair x3, Hysterectomy, Tubal Ligation, colostomy, colostomy reversal, Small and large intestine resection apparently due to issues defecating Allergies and medications Allergies: Coded Allergies: NO KNOWN ALLERGIES (Unverified , 05/10/14) Home Meds Active Scripts Simethicone (Gas Relief) 80 Mg Chw, 80 MG PO Q6HP PRN, #20 TAB.CHEW Prov:STEVAN VERAS MD 04/18/25 Vancomycin HCl (Vancomycin HCl) 125 Mg Cap, 125 MG PO Q6HR, #98 CAP 125 mg 4 times a day for 2 weeks then 3 times a day for 1 week then twice a day for 1 week then once a day for 1 week Prov:STEVAN VERAS MD 04/18/25 Acetazolamide (Diamox) 250 Mg Tb, 500 MG PO Q12HR for 30 Days, #120 TAB Prov:JACQUELINE PERDOMO MD 03/15/25 Cholestyramine (QUESTRAN POWDER) 4 Gm Pw, 4 GM PO BID for 14 Days, #28 POW Prov:STEVAN VERAS MD 10/02/24 Dicyclomine Hcl (BENTYL CAPSULE) 10 Mg Cp, 1 CAP PO TID, #90 CAP 11 Refills Prov:NICHO COELLO CRUST SORTER 01/05/24 Docusate Sodium (Colace) 100 Mg Cap, 1 CAP PO BID, #60 CAP Prov:STEVAN VERAS MD 10/28/23 Pantoprazole Sodium Sesquihydr (Protonix) 40 Mg Tab, 40 MG PO DAILY for 7 Days, #7 TAB Prov:CHANTAL STEWART MD 10/14/23 Reported Medications Simethicone (Simethicone) 80 Mg Chw, 80 MG PO TID, TAB.CHEW 03/12/25 Albuterol Sulfate (VENTOLIN MDI) 90 Mcg Ih, 90 MCG IN, INH 03/12/25 Alprazolam (Alprazolam) 1 Mg Tab, 1 TAB PO TID, #90 TAB 03/12/25 Tizanidine Hydrochloride (Zanaflex) 4 Mg Cap, 6 MG PO TID, CAP 03/12/25 Hydrocodone-Acetaminophen (Hydrocodone Bitartrate/AC 10-325 mg) 1 Tab Tab, 1 TAB PO QID PRN for PAIN SCALE 7 THRU 10, TAB 09/25/24 Hctz (Hydrochlorothiazide) 25 Mg Tab, 25 MG PO DAILY, TAB 09/25/24 Losartan Potassium (Losartan Potassium) 100 Mg Tab, 100 MG PO DAILY for 30 Days, MG 09/25/24 Famotidine (Famotidine) 40 Mg Tab, 1 TAB PO QHSP PRN 08/07/24 Tamsulosin Hcl (Tamsulosin Hcl) 0.4 Mg Cap, 1 CAP PO DAILY 08/07/24 Duloxetine Hcl (Cymbalta) 60 Mg Cap, 1 CAP PO DAILY, #90 CAP 3 Refills 01/30/24 Sennosides-Docusate Sodium (Senokot S) 1 Tab Tab, 1 TAB PO BID, #30 TAB 10/14/23 Gabapentin (Gabapentin) 600 Mg Tab, 1 TAB PO TID, #90 TAB 3 Refills 10/14/23 Review of systems Review of Systems: HEENT:Normal, CVS:Normal, RESPIRATORY:Normal, GI:Abnormal (See HPI), :Abnormal (Recurrent urinary tract infections), MSK:Normal, NEURO: Normal Examination Vital signs Vital Signs Date Time Temp Pulse Resp B/P (MAP) Pulse Ox O2 Delivery O2 Flow Rate FiO2 10/12/25 13:59 67 18 132/69 04/24/25 09:00 98.3 97 98.3 04/24/25 08:00 Room Air* 0 21 Medications Current Medications Medications (Trade) Dose Ordered Sig/Pedro Route PRN Reason Start Time Stop Time Status Last Admin Hydromorphone HCl (Dilaudid Injection) 0.25 mg Q4HPRN PRN IV SEVERE PAIN (7-10 PAIN SCALE) 04/23/25 17:15 04/23/25 21:57 DC 04/23/25 17:38 Alprazolam (Xanax Tablet) 0.5 mg TID PRN PO ANXIETY 04/23/25 19:15 04/24/25 15:58 DC 04/24/25 15:22 Hydromorphone HCl (Dilaudid Injection) 0.5 mg Q4HPRN PRN IV PAIN SCALE 7 THRU 10 04/23/25 22:00 04/24/25 15:58 DC 04/24/25 13:59 Hydromorphone HCl (Dilaudid Injection) 0.75 mg Q4HPRN PRN IV SEVERE PAIN (7-10 PAIN SCALE) 04/24/25 16:00 UNV Alprazolam (Xanax Tablet) 1 mg TID PO 04/24/25 22:00 UNV Acetazolamide (Diamox Tablet) 500 mg Q12HR PO 04/24/25 22:00 UNV Laboratory Labs Test 04/24/25 05:21 04/22/25 19:45 04/22/25 19:32 Range/Units White Blood Count 7.7 4.4-10.8 10^3/uL Red Blood Count 3.91 L 4.0-5.20 10^6/uL Hemoglobin 12.2 12.2-16.2 g/dL Hematocrit 36.0 36.0-46.0 % Mean Corpuscular Volume 91.9 80.0-100.0 fL Mean Corpuscular Hemoglobin 31.1 28.0-32.0 pg Mean Corpuscular Hemoglobin Concent 33.8 32.0-36.0 g/dL Red Cell Distribution Width 13.1 11.8-14.3 % Platelet Count 300 140-450 10^3/uL Mean Platelet Volume 7.8 6.9-10.8 fL Neutrophils (%) (Auto) 44.1 37.0-80.0 % Lymphocytes (%) (Auto) 43.9 10.0-50.0 % Monocytes (%) (Auto) 8.4 0.0-12.0 % Eosinophils (%) (Auto) 2.9 0.0-7.0 % Basophils (%) (Auto) 0.7 0.0-2.0 % Neutrophils # (Auto) 3.4 1.6-8.6 10 ^3/uL Lymphocytes # (Auto) 3.4 0.4-5.4 10 ^3/uL Monocytes # (Auto) 0.6 0-1.3 10 ^3/uL Eosinophils # (Auto) 0.2 0-0.8 10 ^3/uL Basophils # (Auto) 0.1 0-0.2 10 ^3/uL Nucleated Red Blood Cells 0.0 % Sodium Level 143 136-145 mmol/L Potassium Level 3.4 L 3.5-5.1 mmol/L Chloride Level 108 H 98-107 mmol/L Carbon Dioxide Level 26 20-31 mmol/L Anion Gap 9 5-15 Blood Urea Nitrogen 8 L 9-23 mg/dL Creatinine 0.50 L 0.550-1.02 mg/dL Glomerular Filtration Rate Calc 114 >90 mL/min BUN/Creatinine Ratio 16.0 10.0-20.0 Serum Glucose 91 74-106 mg/dL Calcium Level 8.5 L 8.7-10.4 mg/dL Total Bilirubin 0.2 0.2-1.0 mg/dL Aspartate Amino Transferase (AST) 16 13-40 U/L Alanine Aminotransferase (ALT) 32 7-40 U/L Alkaline Phosphatase 82 46-116 U/L Total Protein 5.8 5.7-8.2 g/dL Albumin 3.6 3.2-4.8 g/dL Urine Color Dark-brown Yellow Urine Clarity Turbid H Clear Urine pH 5.5 5.0-9.0 Urine Specific [place] 1.025 1.001-1.035 Urine Protein Trace H Negative Urine Ketones Negative Negative Urine Blood Trace H Negative /uL Urine Nitrite 2+ H Negative Urine Bilirubin 1+ H Negative Urine Urobilinogen 6 Negative mg/dL Urine Leukocyte Esterase Negative Negative /uL Urine RBC 11 0 - 4 /hpf Urine Microscopic WBC 8 H 0-5 /HPF Urine Squamous Epithelial Cells Mod <5 /hpf Urine Calcium Oxalate Crystals Few None Seen Urine Bacteria None seen None Seen /hpf Urine Mucus Few None Seen Urine Glucose Normal Normal mg/dL Lipase 44 12-53 U/L Microbiology Date/Time Source Procedure Growth Status 04/23/25 11:13 Nose MRSA Screen - Final Complete 04/22/25 20:43 Voided Urine Urine Culture - Preliminary Resulted Examination: GENERAL:Normal, HEENT:Normal (No icterus), ABDOMEN:Normal (Nondistended, soft, depressible, right midabdominal scar, midline laparotomy scar, no tender), :Abnormal (No external hemorrhoids, no fissures, no fistulas, loose rectal tone, no masses, no gross blood, rectal prolapse seen on picture taken by patient) Problem List/Assessment/Plan Problems: (1) Rectal prolapse Assessment and Plan Mrs. Schmitz is a 49-year-old female who is admitted to the hospital due to recurrent UTIs. I was consulted due to rectal prolapse. Patient also complaining of multiple watery bowel movements and past C diff infections. As per the multiple bowel movements, I will order C diff testing. Now as per the rectal prolapse I will follow-up with the patient at clinic, currently working on an appointment for next Friday. To address her rectal prolapse patient will need additional testing, before I can offer a definite surgical repair. She will need a MR defecography, colonoscopy, and plus or minus a rectal manometry. For this reasons and given that her prolapse can be reduced, this do es not constitute a emergency/urgent surgery and we can do proper surgical planning to offer/tailor the repair that she needs. 1. Working on scheduling her for next Friday at clinic 2. C diff testing (ordered) 3. Avoid sitting on the toilet for longer than 10 minutes at a time 4. Avoid straining when defecating 5. If patient is constipated, she should take stool softeners and cathartics daily Plan discussed with Plan discussed with: Patient Visit Coding Surgery Date of Service if different f: Apr 25, 2025 Billing Provider: CADY HINKLE MD Surgery Visit Codes: 11840 - INP CONSULT <110 MIN CADY HINKLE MD Apr 24, 2025 16:50
--- NOTE | 2025-04-24 18:26 | DVHPN2 ---
Subjective Overnight events noted. Patient's stated that her pain is not controlled with the Dilaudid 0.5 wants more medication. Also patient has a rectal prolapse general surgery has been consulted. Changes from previous H/P or p: No Changes Eyes: No Pain, No Vision change, No Conjunctivae inflammation, No Eyelid inflammation, No Other, No Redness ENT: No Ear pain, No Ear discharge, No Nose pain, No Nose discharge, No Nose congestion, No Mouth pain, No Mouth swelling, No Throat pain, No Throat swelling, No Other Cardiovascular: No Chest Pain, No Palpitations, No Orthopnea, No Paroxysmal Noc. Dyspnea, No Edema, No Lt Headedness, No Other Respiratory: No Cough, No Dry, No Shortness of breath, No SOB with excertion, No Wheezing, No Hemoptysis, No Pleuritic Pain, No Sputum, No Other Gastrointestinal: No Nausea, No Vomiting; Abdominal Pain; No Diarrhea; C onstipation; No Melena, No Hematochezia, No Other Genitourinary: Dysuria; No Frequency, No Incontinence, No Hematuria; Retention; No Other Musculoskeletal: No other, No neck pain, No shoulder pain, No arm pain; back pain; No hand pain, No leg pain, No foot pain Skin: No Rash, No Lesions, No Jaundice, No Bruising, No Other Objective Vitals Vital Signs Date Time Temp Pulse Resp B/P (MAP) Pulse Ox O2 Delivery O2 Flow Rate FiO2 04/24/25 14:29 77 18 153/89 04/24/25 13:00 98.4 99 98.4 04/24/25 08:00 Room Air* 0 21 Intake/Output Intake and Output 04/24/25 07:00 Intake Total 1750 ml Output Total 950 ml Balance 800 ml Intake Oral 1750 ml Output Urine Total 950 ml # Bowel Movements 6 Exam HEENT pupils are reactive Neck is supple CV is S1-S2 regular rate and rhythm Respiratory diminished breath sounds bases GI positive bowel sound 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 Medications Current Medications Medications Dose Ordered Sig/Pedro Route Start Time Stop Time Status Last Admin Dose Admin Ertapenem 1 gm/ Sodium Chloride 50 ml @ 100 mls/hr DAILY IV 04/23/25 10:00 05/03/25 09:59 04/24/25 10:55 100 MLS/HR Pantoprazole Sodium 40 mg DAILY IV 04/23/25 10:00 04/24/25 09:17 40 MG Hydralazine HCl 10 mg Q6HP PRN IV 04/23/25 01:00 04/24/25 01:51 10 MG Losartan Potassium 50 mg DAILY PO 04/23/25 10:00 04/24/25 09:18 50 MG Ondansetron HCl 4 mg Q4HP PRN IV 04/23/25 01:00 Docusate Sodium 100 mg BIDPRN PRN PO 04/23/25 01:00 Acetaminophen 650 mg Q6HP PRN PO 04/23/25 01:00 Nitroglycerin 0.4 mg Q5MINP PRN SL 04/23/25 01:00 Morphine Sulfate 2 mg Q30M PRN IV 04/23/25 01:00 Sodium Chloride 1,000 ml @ 60 mls/hr [id number] IV 04/23/25 01:00 04/23/25 17:52 60 MLS/HR Gabapentin 600 mg TID PO 04/23/25 06:00 04/24/25 15:21 600 MG Acetaminophen/ Hydrocodone Bitart 1 tab Q4HP PRN PO 04/23/25 14:45 04/24/25 11:09 1 TAB Hydromorphone HCl 0.75 mg Q4HPRN PRN IV 04/24/25 18:15 Alprazolam 1 mg TID PO 04/24/25 22:00 Acetazolamide 500 mg Q12HR PO 04/24/25 22:00 Laboratory Results Laboratory Tests 04/24/25 05:21 Chemistry Test 04/24/25 05:21 Albumin 3.6 g/dL (3.2-4.8) Calcium Level 8.5 mg/dL (8.7-10.4) L Total Protein 5.8 g/dL (5.7-8.2) LFT Test 04/24/25 05:21 Alanine Aminotransferase (ALT) 32 U/L (7-40) Alkaline Phosphatase 82 U/L (46-116) Aspartate Amino Transferase (AST) 16 U/L (13-40) Total Bilirubin 0.2 mg/dL (0.2-1.0) Urinalysis Test 04/22/25 19:45 Urine Color Dark-brown (Yellow) Urine Clarity Turbid (Clear) H Urine pH 5.5 (5.0-9.0) Urine Specific [place] 1.025 (1.001-1.035) Urine Protein Trace (Negative) H Urine Ketones Negative (Negative) Urine Blood Trace /uL (Negative) H Urine Nitrite 2+ (Negative) H Urine Bilirubin 1+ (Negative) H Urine Urobilinogen 6 mg/dL (Negative) Urine Leukocyte Esterase Negative /uL (Negative) Urine RBC 11 /hpf (0 - 4) Urine Microscopic WBC 8 /HPF (0-5) H Urine Squamous Epithelial Cells Mod /hpf (<5) Urine Calcium Oxalate Crystals Few (None Seen) Urine Bacteria None seen /hpf (None Seen) Urine Mucus Few (None Seen) Urine Glucose Normal mg/dL (Normal) Microbiology Microbiology Date/Time Source Procedure Growth Status 04/23/25 11:13 Nose MRSA Screen - Final Complete 04/22/25 20:43 Voided Urine Urine Culture - Preliminary Resulted Assessment/Plan Assessment/Plan 49-year-old female with a known history of hypertension, recurrent UTI, hypothyroidism, papilledema, IBS, peripheral neuropathy, previous history of spinal fusion surgery who initially presented to the hospital with a urinary retention found to have 1. Acute urinary retention status post Guadarrama catheter placement 2. Urine tract infection with a history of recurrent UTI 3. Large rectal prolapse 4. Hypertension 6. Acute on chronic pain syndrome 7. Hypothyroidism 8. Papilledema -pain meds as needed, General surgery consultation, continue antibiotics, patient will be discharged with a leg bag and outpatient follow up with the Urology. Plan discussed with: Patient My Orders Orders - JACQUELINE PERDOMO MD Procedure Category Date Status Time Alprazolam Tablet PHA 04/24/25 In Process (Xanax Tablet) 22:00 Acetazolamide Tablet PHA 04/24/25 In Process (Diamox Tablet) 22:00 * Surgical Consult CONS 04/24/25 Transmitted 16:30 Hydromorphone Hcl Inj PHA 04/24/25 In Process (Dilaudid Injectio 18:15 Date of Service: Apr 24, 2025 Billing Provider: JACQUELINE PERDOMO MD Common Visit Codes: [id number] INP/OBS CARE(HIGH) JACQUELINE PERDOMO MD Apr 24, 2025 18:26
[2025-04-24] MEDS: HYDROMORPHONE HCL 1 MG/ML INJ IV PRN (18:35)
[2025-04-24] MEDS: acetaZOLAMIDE 250 MG TAB PO SCH (21:42)
[2025-04-24] MEDS ORDERED: ALPRAZolam 0.5 MG TAB PO SCH (22:00)
[2025-04-25] VITALS (7 sets, daily range): BP systolic 123–160; BP diastolic 82–110; PULSE 63–84; RESP 16–20; TEMP 97.9–98.6; O2SAT 91–98
--- NOTE | 2025-04-25 16:51 | DVHPN2 ---
Subjective Overnight events noted. Patient's stated that her pain is not controlled with the Dilaudid 0.5 wants more medication. Dilaudid was increased to 0.75 IV q.4 hours PRN. Changes from previous H/P or p: No Changes Eyes: No Pain, No Vision change, No Conjunctivae inflammation, No Eyelid inflammation, No Other, No Redness ENT: No Ear pain, No Ear discharge, No Nose pain, No Nose discharge, No Nose congestion, No Mouth pain, No Mouth swelling, No Throat pain, No Throat swelling, No Other Cardiovascular: No Chest Pain, No Palpitations, No Orthopnea, No Paroxysmal Noc. Dyspnea, No Edema, No Lt Headedness, No Other Respiratory: No Cough, No Dry, No Shortness of breath, No SOB with excertion, No Wheezing, No Hemoptysis, No Pleuritic Pain, No Sputum, No Other Gastrointestinal: No Nausea, No Vomiting; Abdominal Pain; No Diarrhea; C onstipation; No Melena, No Hematochezia, No Other Genitourinary: Dysuria; No Frequency, No Incontinence, No Hematuria; Retention; No Other Musculoskeletal: No other, No neck pain, No shoulder pain, No arm pain; back pain; No hand pain, No leg pain, No foot pain Skin: No Rash, No Lesions, No Jaundice, No Bruising, No Other Objective Vitals Vital Signs Date Time Temp Pulse Resp B/P (MAP) Pulse Ox O2 Delivery O2 Flow Rate FiO2 04/25/25 16:38 98.4 63 18 160/110 (127) 98 98.4 04/25/25 08:00 Room Air* 0 21 Intake/Output Intake and Output 04/25/25 07:00 Intake Total 3000 ml Output Total 2300 ml Balance 700 ml Intake Oral 2290 ml IV Total 710 ml Output Urine Total 2300 ml # Bowel Movements 4 Exam HEENT pupils are reactive Neck is supple CV is S1-S2 regular rate and rhythm Respiratory diminished breath sounds bases GI positive bowel sound 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 Medications Current Medications Medications Dose Ordered Sig/Pedro Route Start Time Stop Time Status Last Admin Dose Admin Ertapenem 1 gm/ Sodium Chloride 50 ml @ 100 mls/hr DAILY IV 04/23/25 10:00 05/03/25 09:59 04/25/25 15:11 100 MLS/HR Pantoprazole Sodium 40 mg DAILY IV 04/23/25 10:00 04/25/25 09:45 40 MG Hydralazine HCl 10 mg Q6HP PRN IV 04/23/25 01:00 04/24/25 01:51 10 MG Losartan Potassium 50 mg DAILY PO 04/23/25 10:00 04/25/25 09:47 50 MG Ondansetron HCl 4 mg Q4HP PRN IV 04/23/25 01:00 Docusate Sodium 100 mg BIDPRN PRN PO 04/23/25 01:00 Acetaminophen 650 mg Q6HP PRN PO 04/23/25 01:00 Nitroglycerin 0.4 mg Q5MINP PRN SL 04/23/25 01:00 Morphine Sulfate 2 mg Q30M PRN IV 04/23/25 01:00 Sodium Chloride 1,000 ml @ 60 mls/hr [id number] IV 04/23/25 01:00 04/25/25 03:00 60 MLS/HR Gabapentin 600 mg TID PO 04/23/25 06:00 04/25/25 15:11 600 MG Acetaminophen/ Hydrocodone Bitart 1 tab Q4HP PRN PO 04/23/25 14:45 04/25/25 12:25 1 TAB Hydromorphone HCl 0.75 mg Q4HPRN PRN IV 04/24/25 18:15 04/25/25 15:12 0.75 MG Acetazolamide 500 mg Q12HR PO 04/24/25 22:00 04/25/25 09:47 500 MG Alprazolam 1 mg TID PRN PO 04/24/25 18:30 04/24/25 21:43 1 MG Laboratory Results Laboratory Tests 04/24/25 05:21 Urinalysis Test 04/22/25 19:45 Urine Color Dark-brown (Yellow) Urine Clarity Turbid (Clear) H Urine pH 5.5 (5.0-9.0) Urine Specific [place] 1.025 (1.001-1.035) Urine Protein Trace (Negative) H Urine Ketones Negative (Negative) Urine Blood Trace /uL (Negative) H Urine Nitrite 2+ (Negative) H Urine Bilirubin 1+ (Negative) H Urine Urobilinogen 6 mg/dL (Negative) Urine Leukocyte Esterase Negative /uL (Negative) Urine RBC 11 /hpf (0 - 4) Urine Microscopic WBC 8 /HPF (0-5) H Urine Squamous Epithelial Cells Mod /hpf (<5) Urine Calcium Oxalate Crystals Few (None Seen) Urine Bacteria None seen /hpf (None Seen) Urine Mucus Few (None Seen) Urine Glucose Normal mg/dL (Normal) Microbiology Microbiology Date/Time Source Procedure Growth Status 04/23/25 11:13 Nose MRSA Screen - Final Complete 04/22/25 20:43 Voided Urine Urine Culture - Final Complete Assessment/Plan Assessment/Plan 49-year-old female with a known history of hypertension, recurrent UTI, hypothyroidism, papilledema, IBS, peripheral neuropathy, previous history of spinal fusion surgery who initially presented to the hospital with a urinary retention found to have 1. Acute urinary retention status post Guadarrama catheter placement 2. Urine tract infection with a history of recurrent UTI 3. Large rectal prolapse 4. Hypertension 6. Acute on chronic pain syndrome 7. Hypothyroidism 8. Papilledema -pain meds as needed, General surgery consultation appreciated, continue antibiotics, patient will be discharged with a leg bag and outpatient follow up with the Urology. -patient is requesting rectal prolapse surgery in house. Plan discussed with: Patient My Orders Orders - JACQUELINE PERDOMO MD Procedure Category Date Status Time Alprazolam Tablet PHA 04/24/25 In Process (Xanax Tablet) 18:30 Soc Telemed Psych CONS 04/25/25 Transmitted Consult 12:49 Date of Service: Apr 25, 2025 Billing Provider: JACQUELINE PERDOMO MD Common Visit Codes: [id number] INP/OBS CARE(HIGH) JACQUELINE PERDOMO MD Apr 25, 2025 16:51
[2025-04-26 00:59] VITALS: BP 104/68; PULSE 75; RESP 18; TEMP 98.1; O2SAT 99
[2025-04-26 05:00] VITALS: BP 145/99; PULSE 74; RESP 18; TEMP 97.7; O2SAT 99
[2025-04-26 08:30] VITALS: BP 132/76; PULSE 68; RESP 18; TEMP 97.9; O2SAT 97
--- NOTE | 2025-04-26 12:48 | DVH ---
Technique: Real-time ultrasound imaging, with color Doppler and compression of the bilateral upper e xtremity veins Indication: multiple failed midlines Comparison: None Findings: The right internal jugular, subclavian, , radial and ulnar veins demonstrate color flow. The right c ephalic and basilic veins are small in caliber and thrombosed. The left internal jugular, subclavian, axillary, brachial veins demonstrate color flow and compressib ility. Left radial and ulnar veins demonstrate color flow. In the left basilic and cephalic veins a re small in caliber and thrombosed. Impression: The bilateral basilic and cephalic veins are small in caliber and thrombus consistent with superficia l vein thrombosis.
[2025-04-26 16:48] VITALS: BP 133/84; PULSE 82; RESP 18; TEMP 98; O2SAT 98
[2025-04-26] MEDS: HYDROMORPHONE HCL 1 MG/ML INJ IV PRN (17:58)
--- NOTE | 2025-04-26 18:25 | DVHPN2 ---
Subjective Overnight events noted. Patient's stated that her pain is not controlled with the Dilaudid 0.5 wants more medication. Dilaudid was increased to 0.75 IV q.4 hours PRN. Changes from previous H/P or p: No Changes Eyes: No Pain, No Vision change, No Conjunctivae inflammation, No Eyelid inflammation, No Other, No Redness ENT: No Ear pain, No Ear discharge, No Nose pain, No Nose discharge, No Nose congestion, No Mouth pain, No Mouth swelling, No Throat pain, No Throat swelling, No Other Cardiovascular: No Chest Pain, No Palpitations, No Orthopnea, No Paroxysmal Noc. Dyspnea, No Edema, No Lt Headedness, No Other Respiratory: No Cough, No Dry, No Shortness of breath, No SOB with excertion, No Wheezing, No Hemoptysis, No Pleuritic Pain, No Sputum, No Other Gastrointestinal: No Nausea, No Vomiting; Abdominal Pain; No Diarrhea; C onstipation; No Melena, No Hematochezia, No Other Genitourinary: Dysuria; No Frequency, No Incontinence, No Hematuria; Retention; No Other Musculoskeletal: No other, No neck pain, No shoulder pain, No arm pain; back pain; No hand pain, No leg pain, No foot pain Skin: No Rash, No Lesions, No Jaundice, No Bruising, No Other Objective Vitals Vital Signs Date Time Temp Pulse Resp B/P (MAP) Pulse Ox O2 Delivery O2 Flow Rate FiO2 04/26/25 17:58 75 18 133/84 04/26/25 16:48 98.0 98 98.0 04/26/25 08:10 Room Air* 0 21 Intake/Output Intake and Output 04/26/25 07:00 Intake Total 2000 ml Output Total 2200 ml Balance -200 ml Intake Oral 1950 ml IV Total 50 ml Output Urine Total 2200 ml Exam HEENT pupils are reactive Neck is supple CV is S1-S2 regular rate and rhythm Respiratory diminished breath sounds bases GI positive bowel sound 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 Medications Current Medications Medications Dose Ordered Sig/Pedro Route Start Time Stop Time Status Last Admin Dose Admin Ertapenem 1 gm/ Sodium Chloride 50 ml @ 100 mls/hr DAILY IV 04/23/25 10:00 05/03/25 09:59 04/26/25 11:44 100 MLS/HR Pantoprazole Sodium 40 mg DAILY IV 04/23/25 10:00 04/26/25 11:44 40 MG Hydralazine HCl 10 mg Q6HP PRN IV 04/23/25 01:00 04/24/25 01:51 10 MG Losartan Potassium 50 mg DAILY PO 04/23/25 10:00 04/26/25 11:46 50 MG Ondansetron HCl 4 mg Q4HP PRN IV 04/23/25 01:00 Docusate Sodium 100 mg BIDPRN PRN PO 04/23/25 01:00 Acetaminophen 650 mg Q6HP PRN PO 04/23/25 01:00 Nitroglycerin 0.4 mg Q5MINP PRN SL 04/23/25 01:00 Morphine Sulfate 2 mg Q30M PRN IV 04/23/25 01:00 Sodium Chloride 1,000 ml @ 60 mls/hr [id number] IV 04/23/25 01:00 04/26/25 12:45 60 MLS/HR Gabapentin 600 mg TID PO 04/23/25 06:00 04/26/25 14:01 600 MG Acetaminophen/ Hydrocodone Bitart 1 tab Q4HP PRN PO 04/23/25 14:45 04/26/25 04:28 1 TAB Acetazolamide 500 mg Q12HR PO 04/24/25 22:00 04/26/25 11:46 500 MG Alprazolam 1 mg TID PRN PO 04/24/25 18:30 04/26/25 05:58 1 MG Hydromorphone HCl 1 mg Q4HPRN PRN IV 04/26/25 16:30 04/26/25 17:58 1 MG Laboratory Results Laboratory Tests 04/24/25 05:21 Urinalysis Test 04/22/25 19:45 Urine Color Dark-brown (Yellow) Urine Clarity Turbid (Clear) H Urine pH 5.5 (5.0-9.0) Urine Specific [place] 1.025 (1.001-1.035) Urine Protein Trace (Negative) H Urine Ketones Negative (Negative) Urine Blood Trace /uL (Negative) H Urine Nitrite 2+ (Negative) H Urine Bilirubin 1+ (Negative) H Urine Urobilinogen 6 mg/dL (Negative) Urine Leukocyte Esterase Negative /uL (Negative) Urine RBC 11 /hpf (0 - 4) Urine Microscopic WBC 8 /HPF (0-5) H Urine Squamous Epithelial Cells Mod /hpf (<5) Urine Calcium Oxalate Crystals Few (None Seen) Urine Bacteria None seen /hpf (None Seen) Urine Mucus Few (None Seen) Urine Glucose Normal mg/dL (Normal) Microbiology Microbiology Date/Time Source Procedure Growth Status 04/23/25 11:13 Nose MRSA Screen - Final Complete 04/22/25 20:43 Voided Urine Urine Culture - Final Complete Assessment/Plan Assessment/Plan 49-year-old female with a known history of hypertension, recurrent UTI, hypothyroidism, papilledema, IBS, peripheral neuropathy, previous history of spinal fusion surgery who initially presented to the hospital with a urinary retention found to have 1. Acute urinary retention status post Guadarrama catheter placement 2. Urine tract infection with a history of recurrent UTI 3. Large rectal prolapse 4. Hypertension 6. Acute on chronic pain syndrome 7. Hypothyroidism 8. Papilledema -pain meds as needed, increased Dilaudid 1 mg IV p.r.n. severe pain General surgery consultation appreciated, continue antibiotics, patient will be discharged with a leg bag and outpatient follow up with the Urology. -patient is requesting rectal prolapse surgery in house. Plan discussed with: Patient My Orders Orders - JACQUELINE PERDOMO MD Procedure Category Date Status Time Change Midline JUAN LUIS 04/25/25 In Process Dressing Q7 Day 18:27 Bi Lat Upper Dvt US 04/26/25 Resulted 10:09 Hydromorphone Hcl Inj PHA 04/26/25 In Process (Dilaudid Injectio 16:30 Regular Diet DIET 04/26/25 Transmitted Dinner Date of Service: Apr 26, 2025 Billing Provider: JACQUELINE PERDOMO MD Common Visit Codes: [id number] INP/OBS CARE(HIGH) JACQUELINE PERDOMO MD Apr 26, 2025 18:25
[2025-04-26 20:00] VITALS: PULSE 84; RESP 17; O2SAT 97
[2025-04-26 21:00] VITALS: BP 107/73; PULSE 84; RESP 17; TEMP 97.8; O2SAT 97
[2025-04-27 01:00] VITALS: BP 106/70; PULSE 66; RESP 18; TEMP 96.4; O2SAT 98
[2025-04-27 05:00] VITALS: BP 122/72; PULSE 85; RESP 17; TEMP 97.5; O2SAT 100
[2025-04-27 08:00] VITALS: PULSE 88; RESP 19; O2SAT 99
[2025-04-27 09:45] VITALS: BP 123/84; PULSE 88; RESP 19; TEMP 98.1; O2SAT 99
[2025-04-27 16:30] VITALS: BP 129/79; PULSE 70; RESP 18; TEMP 98.1; O2SAT 95
--- NOTE | 2025-04-27 16:50 | DVHPN2 ---
Subjective Patient is still waiting for the surgeon to re-evaluate for inpatient rectal prolapse surgery. Social service has been consulted whether there was any authorization. Changes from previous H/P or p: No Changes Eyes: No Pain, No Vision change, No Conjunctivae inflammation, No Eyelid inflammation, No Other, No Redness ENT: No Ear pain, No Ear discharge, No Nose pain, No Nose discharge, No Nose congestion, No Mouth pain, No Mouth swelling, No Throat pain, No Throat swelling, No Other Cardiovascular: No Chest Pain, No Palpitations, No Orthopnea, No Paroxysmal Noc. Dyspnea, No Edema, No Lt Headedness, No Other Respiratory: No Cough, No Dry, No Shortness of breath, No SOB with excertion, No Wheezing, No Hemoptysis, No Pleuritic Pain, No Sputum, No Other Gastrointestinal: No Nausea, No Vomiting; Abdominal Pain; No Diarrhea; C onstipation; No Melena, No Hematochezia, No Other Genitourinary: Dysuria; No Frequency, No Incontinence, No Hematuria; Retention; No Other Musculoskeletal: No other, No neck pain, No shoulder pain, No arm pain; back pain; No hand pain, No leg pain, No foot pain Skin: No Rash, No Lesions, No Jaundice, No Bruising, No Other Objective Vitals Vital Signs Date Time Temp Pulse Resp B/P (MAP) Pulse Ox O2 Delivery O2 Flow Rate FiO2 04/27/25 16:30 98.1 70 18 129/79 (96) 95 98.1 04/27/25 08:00 Room Air* 0 21 Intake/Output Intake and Output 04/27/25 07:00 Intake Total 1775 ml Output Total 1250 ml Balance 525 ml Intake Oral 1775 ml Output Urine Total 1250 ml # Bowel Movements 4 Exam HEENT pupils are reactive Neck is supple CV is S1-S2 regular rate and rhythm Respiratory diminished breath sounds bases GI positive bowel sound 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 Medications Current Medications Medications Dose Ordered Sig/Pedro Route Start Time Stop Time Status Last Admin Dose Admin Ertapenem 1 gm/ Sodium Chloride 50 ml @ 100 mls/hr DAILY IV 04/23/25 10:00 05/03/25 09:59 04/27/25 10:53 100 MLS/HR Pantoprazole Sodium 40 mg DAILY IV 04/23/25 10:00 04/27/25 10:52 40 MG Hydralazine HCl 10 mg Q6HP PRN IV 04/23/25 01:00 04/24/25 01:51 10 MG Losartan Potassium 50 mg DAILY PO 04/23/25 10:00 04/27/25 10:52 50 MG Ondansetron HCl 4 mg Q4HP PRN IV 04/23/25 01:00 Docusate Sodium 100 mg BIDPRN PRN PO 04/23/25 01:00 Acetaminophen 650 mg Q6HP PRN PO 04/23/25 01:00 Nitroglycerin 0.4 mg Q5MINP PRN SL 04/23/25 01:00 Morphine Sulfate 2 mg Q30M PRN IV 04/23/25 01:00 Sodium Chloride 1,000 ml @ 60 mls/hr [id number] IV 04/23/25 01:00 04/27/25 05:59 60 MLS/HR Gabapentin 600 mg TID PO 04/23/25 06:00 04/27/25 13:07 600 MG Acetaminophen/ Hydrocodone Bitart 1 tab Q4HP PRN PO 04/23/25 14:45 04/27/25 13:07 1 TAB Acetazolamide 500 mg Q12HR PO 04/24/25 22:00 04/27/25 10:52 500 MG Alprazolam 1 mg TID PRN PO 04/24/25 18:30 04/27/25 10:57 1 MG Hydromorphone HCl 1 mg Q4HPRN PRN IV 04/26/25 16:30 04/27/25 14:52 1 MG Laboratory Results Laboratory Tests 04/24/25 05:21 Urinalysis Test 04/22/25 19:45 Urine Color Dark-brown (Yellow) Urine Clarity Turbid (Clear) H Urine pH 5.5 (5.0-9.0) Urine Specific [place] 1.025 (1.001-1.035) Urine Protein Trace (Negative) H Urine Ketones Negative (Negative) Urine Blood Trace /uL (Negative) H Urine Nitrite 2+ (Negative) H Urine Bilirubin 1+ (Negative) H Urine Urobilinogen 6 mg/dL (Negative) Urine Leukocyte Esterase Negative /uL (Negative) Urine RBC 11 /hpf (0 - 4) Urine Microscopic WBC 8 /HPF (0-5) H Urine Squamous Epithelial Cells Mod /hpf (<5) Urine Calcium Oxalate Crystals Few (None Seen) Urine Bacteria None seen /hpf (None Seen) Urine Mucus Few (None Seen) Urine Glucose Normal mg/dL (Normal) Microbiology Microbiology Date/Time Source Procedure Growth Status 04/25/25 16:55 Stool Clostridium difficile Toxin Assay - Final Complete 04/23/25 11:13 Nose MRSA Screen - Final Complete 04/22/25 20:43 Voided Urine Urine Culture - Final Complete Assessment/Plan Assessment/Plan 49-year-old female with a known history of hypertension, recurrent UTI, hypothyroidism, papilledema, IBS, peripheral neuropathy, previous history of spinal fusion surgery who initially presented to the hospital with a urinary retention found to have 1. Acute urinary retention status post Guadarrama catheter placement 2. Urine tract infection with a history of recurrent UTI 3. Large rectal prolapse 4. Hypertension 6. Acute on chronic pain syndrome 7. Hypothyroidism 8. Papilledema -pain meds as needed, increased Dilaudid 1 mg IV p.r.n. severe pain General surgery consultation appreciated, continue antibiotics, patient will be discharged with a leg bag and outpatient follow up with the Urology. -patient is requesting rectal prolapse surgery in house. 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 Plan discussed with: Patient My Orders Orders - JACQUELINE PERDOMO MD Procedure Category Date Status Time * Production Sorter CONS 04/27/25 Transmitted Consult Date of Service: Apr 27, 2025 Billing Provider: JACQUELINE PERDOMO MD Common Visit Codes: [id number] INP/OBS CARE(HIGH) JACQUELINE PERDOMO MD Apr 27, 2025 16:50
[2025-04-27 21:16] VITALS: BP 117/85; PULSE 75; RESP 17; TEMP 97.7; O2SAT 97
[2025-04-28] VITALS (7 sets, daily range): BP systolic 116–138; BP diastolic 74–92; PULSE 64–78; RESP 16–18; TEMP 96.7–98; O2SAT 97–99
--- NOTE | 2025-04-28 16:02 | DVH ---
CLINICAL HISTORY: flank pain/ check hydronephrosis TECHNIQUE: Complete ultrasound exam of the kidneys and bladder was performed. COMPARISON: XY KUB ABDOMEN SINGLE VIEW on DOS: 04/22/25, US ABDOMEN LIMITED on DOS: 04/12/25, US ABDOM EN LIMITED on DOS: 06/02/24, XY KUB ABDOMEN SINGLE VIEW on DOS: 01/24/24, US ABDOMEN LIMITED on DOS: FINDINGS: The right kidney has normal echogenicity and measures 10.6 cm. There is no focal parenchymal abnormal ity or evidence for stone. There is no hydronephrosis. The left kidney has normal echogenicity and measures 11.2 cm. There is no focal parenchymal abnormal ity or evidence for stone. There is no hydronephrosis. The bladder is not seen, likely due to Guadarrama catheter. IMPRESSION: NO SIGNIFICANT SONOGRAPHIC ABNORMALITY OF THE KIDNEYS.
[2025-04-28] MEDS ORDERED: BACL10TA PO (17:08)
[2025-04-28] MEDS ORDERED: NITR-52 PO (17:08)
[2025-04-28] MEDS ORDERED: HYDR-4798 PO (17:08)
[2025-04-28] MEDS ORDERED: ZOLP10TA PO (17:11)
--- NOTE | 2025-04-28 17:14 | DVHDS2 ---
Discharge Summary Date of Admission Apr 23, 2025 at 00:48 Date of Discharge: Apr 28, 2025 Labs/Diagnostic Data: Laboratory Results Test 04/24/25 05:21 04/22/25 19:45 04/22/25 19:32 White Blood Count 7.7 10^3/uL (4.4-10.8) Red Blood Count 3.91 10^6/uL (4.0-5.20) Hemoglobin 12.2 g/dL (12.2-16.2) Hematocrit 36.0 % (36.0-46.0) Mean Corpuscular Volume 91.9 fL (80.0-100.0) Mean Corpuscular Hemoglobin 31.1 pg (28.0-32.0) Mean Corpuscular Hemoglobin Concent 33.8 g/dL (32.0-36.0) Red Cell Distribution Width 13.1 % (11.8-14.3) Platelet Count 300 10^3/uL (140-450) Mean Platelet Volume 7.8 fL (6.9-10.8) Neutrophils (%) (Auto) 44.1 % (37.0-80.0) Lymphocytes (%) (Auto) 43.9 % (10.0-50.0) Monocytes (%) (Auto) 8.4 % (0.0-12.0) Eosinophils (%) (Auto) 2.9 % (0.0-7.0) Basophils (%) (Auto) 0.7 % (0.0-2.0) Neutrophils # (Auto) 3.4 10 ^3/uL (1.6-8.6) Lymphocytes # (Auto) 3.4 10 ^3/uL (0.4-5.4) Monocytes # (Auto) 0.6 10 ^3/uL (0-1.3) Eosinophils # (Auto) 0.2 10 ^3/uL (0-0.8) Basophils # (Auto) 0.1 10 ^3/uL (0-0.2) Nucleated Red Blood Cells 0.0 % Sodium Level 143 mmol/L (136-145) Potassium Level 3.4 mmol/L (3.5-5.1) Chloride Level 108 mmol/L (98-107) Carbon Dioxide Level 26 mmol/L (20-31) Anion Gap 9 (5-15) Blood Urea Nitrogen 8 mg/dL (9-23) Creatinine 0.50 mg/dL (0.550-1.02) Glomerular Filtration Rate Calc 114 mL/min (>90) BUN/Creatinine Ratio 16.0 (10.0-20.0) Serum Glucose 91 mg/dL (74-106) Calcium Level 8.5 mg/dL (8.7-10.4) Total Bilirubin 0.2 mg/dL (0.2-1.0) Aspartate Amino Transferase (AST) 16 U/L (13-40) Alanine Aminotransferase (ALT) 32 U/L (7-40) Alkaline Phosphatase 82 U/L (46-116) Total Protein 5.8 g/dL (5.7-8.2) Albumin 3.6 g/dL (3.2-4.8) Urine Color Dark-brown (Yellow) Urine Clarity Turbid (Clear) Urine pH 5.5 (5.0-9.0) Urine Specific [place] 1.025 (1.001-1.035) Urine Protein Trace (Negative) Urine Ketones Negative (Negative) Urine Blood Trace /uL (Negative) Urine Nitrite 2+ (Negative) Urine Bilirubin 1+ (Negative) Urine Urobilinogen 6 mg/dL (Negative) Urine Leukocyte Esterase Negative /uL (Negative) Urine RBC 11 /hpf (0 - 4) Urine Microscopic WBC 8 /HPF (0-5) Urine Squamous Epithelial Cells Mod /hpf (<5) Urine Calcium Oxalate Crystals Few (None Seen) Urine Bacteria None seen /hpf (None Seen) Urine Mucus Few (None Seen) Urine Glucose Normal mg/dL (Normal) Lipase 44 U/L (12-53) Other Laboratory Tests 04/24/25 05:21 Brief Hx & Hospital Course: 49-year-old female with a known history of hypertension, recurrent UTI, hypothyroidism, papilledema, IBS, peripheral neuropathy, previous history of spinal fusion surgery who initially presented to the hospital with a urinary retention Patient had Guadarrama catheter inserted with good urine output. Patient also complaining of rectal prolapse which is an ongoing issue, surgery was consulted. Surgical evaluation recommends outpatient follow up for elective surgery. On 04/28 patient complaining of flank pain, renal ultrasound done showing no hydronephrosis, good urine output in Guadarrama bag. Diagnosis: Acute urinary retention status post Guadarrama catheter placement Urine tract infection with a history of recurrent UTI Large rectal prolapse Hypertension Acute on chronic pain syndrome Hypothyroidism papilledema, unable to rule out Vascular insufficiency, resulting in lower extremity edema insomnia Plan: -Outpatient follow up with in network surgical services - per patient request, removed Guadarrama, follow up with Urology -Continue nitrofurantoin 100 mg twice daily for 10 days. Hydrate well. -Continue baclofen 10 mg twice daily for 7 days, extra tablets to be used as needed during daytime -Continuing to use adult diapers changed frequently. Continue stool softeners, avoid laxatives (lactulose, MiraLax, Senokot) -For pain use 1st line Tylenol, second-line ibuprofen, 3rd line prescription [place] 10mg can use up to 4 times daily as needed - for sleep, use [id number] nightly as needed only -continue other home medications not mentioned above. -Follow up with PCP to review discharge Condition at Discharge: Fair Final Diagnosis/Problems List Acute urinary retention status post Guadarrama catheter placement Urine tract infection with a history of recurrent UTI Large rectal prolapse Hypertension Acute on chronic pain syndrome Hypothyroidism papilledema, unable to rule out Vascular insufficiency, resulting in lower extremity edema insomnia Discharge Disposition: Home Discharge Instruct/Medications Scheduled Acetazolamide (Diamox), 500 MG PO Q12HR Alprazolam (Alprazolam), 1 TAB PO TID, (Reported) Cholestyramine (Questran Powder), 4 GM PO BID Dicyclomine Hcl (Bentyl Capsule), 1 CAP PO TID Docusate Sodium (Colace), 1 CAP PO BID Duloxetine Hcl (Cymbalta), 1 CAP PO DAILY, (Reported) Gabapentin (Gabapentin), 1 TAB PO TID, (Reported) Hctz (Hydrochlorothiazide), 25 MG PO DAILY, (Reported) Losartan Potassium (Losartan Potassium), 100 MG PO DAILY, (Reported) Nitrofurantoin (Nitrofurantoin), 1 CAP PO BID Pantoprazole Sodium Sesquihydr (Protonix), 40 MG PO DAILY Sennosides-Docusate Sodium (Senokot S), 1 TAB PO BID, (Reported) Simethicone (Simethicone), 80 MG PO TID, (Reported) Tamsulosin Hcl (Tamsulosin Hcl), 1 CAP PO DAILY, (Reported) Tizanidine Hydrochloride (Zanaflex), 6 MG PO TID, (Reported) Vancomycin HCl (Vancomycin HCl), 125 MG PO Q6HR Scheduled PRN Baclofen (Baclofen), 10 MG PO BIDP PRN Famotidine (Famotidine), 1 TAB PO QHSP PRN, (Reported) Furosemide (Lasix), 1 TAB PO DAILY PRN Hydrocodone-Acetaminophen (Hydrocodone Bitartrate/AC 10-325 mg), 1 TAB PO QID PRN for PAIN SCALE 7 THRU 10, (Reported) Simethicone (Gas Relief), 80 MG PO Q6HP PRN Tramadol HCl (Tramadol HCl), 50 MG PO TIDP PRN Zolpidem Tartrate (Ambien), 1 TAB PO QPM PRN Miscellaneous Medications Albuterol Sulfate (Ventolin Mdi), 90 MCG IN, (Reported) Discharge Statement: "Patient was advised to return to the ER or call 911 if any headaches, dizziness, shortness of breath, chest pain, abdominal pain, bleeding, fevers, or worsening of medical condition. Patient was counseled about treatment plan, medications, possible side effects, patientverbalized understanding. All questions were answered to the best of my ability. This discharge took greater then 30 minutes in planning, reviewing documentation, counseling the patient, and discussing with other team members." ASSESSMENT ASSESSMENT Assessment Date of Service: Apr 28, 2025 Billing Provider: MARIUM VALVERDE MD Common Visit Codes: [id number] DISCH DAY >30min MARIUM VALVERDE MD Apr 28, 2025 17:14
[2025-04-28] MEDS ORDERED: FURO1TAB33 PO (18:02)
[2025-04-28] MEDS ORDERED: TRAM-626 PO (18:02)
[2025-04-28] MEDS: OLANZapine 5 MG TAB PO ONE (18:32)
[2025-04-28] MEDS: PIPERACILLIN-TAZOB 3.375GM 100 ML IV SCH (18:33)
[2025-04-29 05:00] VITALS: BP 129/90; PULSE 82; RESP 20; TEMP 97.7; O2SAT 97
[2025-04-29 08:00] VITALS: PULSE 92; RESP 18; O2SAT 98
[2025-04-29 09:00] VITALS: BP 118/77; PULSE 110; RESP 18; TEMP 98; O2SAT 98
[2025-04-29 13:00] VITALS: BP 110/60; PULSE 71; RESP 18; TEMP 98; O2SAT 96
--- NOTE | 2025-04-29 15:08 | DVHPN2 ---
Reviewed: H&P Changes from previous H/P or p: No Changes General: Per HPI Eyes: No Pain, No Vision change, No Conjunctivae inflammation, No Eyelid inflammation, No Other, No Redness ENT: No Ear pain, No Ear discharge, No Nose pain, No Nose discharge, No Nose congestion, No Mouth pain, No Mouth swelling, No Throat pain, No Throat swelling, No Other Cardiovascular: No Chest Pain, No Palpitations, No Orthopnea, No Paroxysmal Noc. Dyspnea, No Edema, No Lt Headedness, No Other Respiratory: No Cough, No Dry, No Shortness of breath, No SOB with excertion, No Wheezing, No Hemoptysis, No Pleuritic Pain, No Sputum, No Other Gastrointestinal: No Nausea, No Vomiting; Abdominal Pain; No Diarrhea; C onstipation; No Melena, No Hematochezia, No Other Genitourinary: Dysuria; No Frequency, No Incontinence, No Hematuria; Retention; No Other Musculoskeletal: No other, No neck pain, No shoulder pain, No arm pain; back pain; No hand pain, No leg pain, No foot pain Skin: No Rash, No Lesions, No Jaundice, No Bruising, No Other Objective Vitals Vital Signs Date Time Temp Pulse Resp B/P (MAP) Pulse Ox O2 Delivery O2 Flow Rate FiO2 04/29/25 10:24 71 18 110/66 04/29/25 09:00 98.0 98 98.0 04/29/25 08:00 Room Air* 0 21 Intake/Output Intake and Output 04/29/25 07:00 Intake Total 350 ml Output Total 1900 ml Balance -1550 ml Intake Oral 350 ml Output Urine Total 1900 ml # Bowel Movements 5 Exam GEN: Healthy appearing, well-developed, NAD. HEENT: NC/AT; MMM. CV: RRR, no m/r/g. LUNGS: CTAB, no w/r/c. ABD: Soft, NT/ND, NBS, no masses or organomegaly. EXT: skin Warm, well perfused. no rashes. No clubbing, cyanosis, or edema. NEURO: Ambulating with no limitations. No focal deficits. Medications Current Medications Medications Dose Ordered Sig/Pedro Route Start Time Stop Time Status Last Admin Dose Admin Losartan Potassium 50 mg DAILY PO 04/23/25 10:00 04/29/25 09:52 50 MG Docusate Sodium 100 mg BIDPRN PRN PO 04/23/25 01:00 Acetaminophen 650 mg Q6HP PRN PO 04/23/25 01:00 Nitroglycerin 0.4 mg Q5MINP PRN SL 04/23/25 01:00 Gabapentin 600 mg TID PO 04/23/25 06:00 04/29/25 14:00 600 MG Acetaminophen/ Hydrocodone Bitart 1 tab Q4HP PRN PO 04/23/25 14:45 04/29/25 14:26 1 TAB Acetazolamide 500 mg Q12HR PO 04/24/25 22:00 04/29/25 10:08 500 MG Alprazolam 1 mg TID PRN PO 04/24/25 18:30 04/28/25 15:04 1 MG Laboratory Results Laboratory Tests 04/24/25 05:21 Urinalysis Test 04/22/25 19:45 Urine Color Dark-brown (Yellow) Urine Clarity Turbid (Clear) H Urine pH 5.5 (5.0-9.0) Urine Specific [place] 1.025 (1.001-1.035) Urine Protein Trace (Negative) H Urine Ketones Negative (Negative) Urine Blood Trace /uL (Negative) H Urine Nitrite 2+ (Negative) H Urine Bilirubin 1+ (Negative) H Urine Urobilinogen 6 mg/dL (Negative) Urine Leukocyte Esterase Negative /uL (Negative) Urine RBC 11 /hpf (0 - 4) Urine Microscopic WBC 8 /HPF (0-5) H Urine Squamous Epithelial Cells Mod /hpf (<5) Urine Calcium Oxalate Crystals Few (None Seen) Urine Bacteria None seen /hpf (None Seen) Urine Mucus Few (None Seen) Urine Glucose Normal mg/dL (Normal) Microbiology Microbiology Date/Time Source Procedure Growth Status 04/25/25 16:55 Stool Clostridium difficile Toxin Assay - Final Complete 04/23/25 11:13 Nose MRSA Screen - Final Complete 04/22/25 20:43 Voided Urine Urine Culture - Final Complete Labs and/or images reviewed: Labs reviewed by me, Image(s) reviewed by me Assessment/Plan Assessment/Plan 49-year-old female with a known history of hypertension, recurrent UTI, hypothyroidism, papilledema, IBS, peripheral neuropathy, previous history of spinal fusion surgery who initially presented to the hospital with a urinary retention Patient had Guadarrama catheter inserted with good urine output. Patient also complaining of rectal prolapse which is an ongoing issue, surgery was consulted. Surgical evaluation recommends outpatient follow up for elective surgery. On 04/28 patient complaining of flank pain, renal ultrasound done showing no hydronephrosis, good urine output in Guadarrama bag. 04/29: Patient had decided to challenge discharge from yesterday on 04/28, this morning patient is as for Guadarrama to be removed which is done by her request, patient then is asking to agreeing with discharge and wants to go home. We will continue discharge plan as seen on discharge summary yesterday 04/28/2025. Diagnosis: Acute urinary retention status post Guadarrama catheter placement Urine tract infection with a history of recurrent UTI Large rectal prolapse Hypertension Acute on chronic pain syndrome Hypothyroidism papilledema, unable to rule out Vascular insufficiency, resulting in lower extremity edema insomnia Plan: - see complete discharge plan on yesterday discharge note on 04/28/2025 Med surge Full code Plan discussed with: Patient My Orders Orders - MARIUM VALVERDE MD Procedure Category Date Status Time Kidney US 04/28/25 Resulted 15:21 * Label Machine Operator CONS 04/28/25 Transmitted Consult Discharge DISCHARGE 04/29/25 Verified 15:05 Date of Service: Apr 29, 2025 Billing Provider: MARIUM VALVERDE MD Common Visit Codes: [id number] INP/OBS CARE(HIGH) MARIUM VALVERDE MD Apr 29, 2025 15:08
[2025-04-29 16:24] VITALS: BP 118/77; PULSE 71; RESP 16; TEMP 36.7; O2SAT 96
== END 2025-04-29 17:30 | disposition home or self-care (01) | DRG 690 ==
LOC: ER 19:09 → OVERFLOW 04-23 00:48 → WEST WING 04-23 23:40
PROVIDERS: ADMIT Student in an Organized Health Care Education/Training Program; ATTEND Student in an Organized Health Care Education/Training Program
PROC: 05HC33Z Insertion of Infusion Device into Left Basilic Vein, Percutaneous Approach (ICD-10-PCS; principal; 2025-04-23)
PROC: B54NZZA Ultrasonography of Left Upper Extremity Veins, Guidance (ICD-10-PCS; 2025-04-23)
PROC: 05HD33Z Insertion of Infusion Device into Right Cephalic Vein, Percutaneous Approach (ICD-10-PCS; 2025-04-25)
PROC: B54MZZA Ultrasonography of Right Upper Extremity Veins, Guidance (ICD-10-PCS; 2025-04-25)
PROC: 05HD33Z Insertion of Infusion Device into Right Cephalic Vein, Percutaneous Approach (ICD-10-PCS; 2025-04-26)
PROC: B54MZZA Ultrasonography of Right Upper Extremity Veins, Guidance (ICD-10-PCS; 2025-04-26)
DX: N39.0 Urinary tract infection, site not specified (principal); H47.10 Unspecified papilledema; E87.6 Hypokalemia; K59.00 Constipation, unspecified; E66.01 Morbid (severe) obesity due to excess calories; G89.4 Chronic pain syndrome; E03.9 Hypothyroidism, unspecified; K62.3 Rectal prolapse; G62.9 Polyneuropathy, unspecified; F17.210 Nicotine dependence, cigarettes, uncomplicated; G47.00 Insomnia, unspecified; I10 Essential (primary) hypertension; I99.8 Other disorder of circulatory system; Z82.49 Family history of ischemic heart disease and other diseases of the circulatory system; Z83.3 Family history of diabetes mellitus; Z90.49 Acquired absence of other specified parts of digestive tract; Z90.710 Acquired absence of both cervix and uterus; Z93.3 Colostomy status; Z98.1 Arthrodesis status; Z68.35 Body mass index [BMI] 35.0-35.9, adult
CPT/HCPCS: 36415; 74018; 76775; 80048; 80053; 81001; 83690; 85025; 87081; 87086; 87493; 93970; G0378; J1335; J2470; J2543

== ENCOUNTER 2025-06-17 10:53 | Inpatient (IN) | payer OTHER, MEDICAID ==
[~2025-06-17] VITALS: Ht 149.9 cm; Wt 72.5 kg
[~2025-06-17 10:53] MED LIST changes: +BACL10TA PO; +FURO1TAB33 PO; -HYDR-4798 PO; -HYDR25TA5 PO; +NITR-52 PO; -SIME80CH PO; -TIZA4CAP PO; +TRAM-626 PO; +ZOLP10TA PO
--- NOTE | 2025-06-17 11:09 | ED.PDOC ---
GI ASSESSMENT HPI Comments This is a 50 year old female presenting to the ED with chief complaint of abdominal pain. Patient reports that she has been experiencing diffuse abdominal pain with associated N/V/D and radiation of pain to her back for the past 5 days. Patient relays that she also has had some foul smelling urine and a rectal prolapse that she is currently dealing with. Patient states her follow up appointment for her prolapse is on 06/28. Patient denies any fever, chills, chest pain, SOB, dizziness, hematemesis, or melena. Chief Complaint: Abdominal Pain Time Seen by MD: 11:07 Primary Care Provider: DR ROCK Reviewed Notes: Nurses Notes, Medications, Allergies Allergies: Coded Allergies: NO KNOWN ALLERGIES (Unverified , 05/10/14) Home Meds Active Scripts Furosemide (Lasix) 20 Mg Tb, 1 TAB PO DAILY PRN, #30 TAB 0 Refills as needed, once, if evening leg swelling Prov:MARIUM VALVERDE MD 04/28/25 Tramadol HCl (Tramadol HCl) 50 Mg Tab, 50 MG PO TIDP PRN for 10 Days, #30 TAB 0 Refills Prov:MARIUM VALVERDE MD 04/28/25 Zolpidem Tartrate (Ambien) 10 Mg Tab, 1 TAB PO QPM PRN, #20 TAB 0 Refills Prov:MARIUM VALVERDE MD 04/28/25 Baclofen (Baclofen) 10 Mg Tab, 10 MG PO BIDP PRN for 10 Days, #20 TAB 1 Refill Prov:MARIUM VALVERDE MD 04/28/25 Nitrofurantoin (Nitrofurantoin) 100 Mg Cap, 1 CAP PO BID for 10 Days, #20 CAP Prov:MARIUM VALVERDE MD 04/28/25 Vancomycin HCl (Vancomycin HCl) 125 Mg Cap, 125 MG PO Q6HR, #98 CAP 125 mg 4 times a day for 2 weeks then 3 times a day for 1 week then twice a day for 1 week then once a day for 1 week Prov:STEVAN VERAS MD 04/18/25 Acetazolamide (Diamox) 250 Mg Tb, 500 MG PO Q12HR for 30 Days, #120 TAB Prov:JACQUELINE PERDOMO MD 03/15/25 Cholestyramine (QUESTRAN POWDER) 4 Gm Pw, 4 GM PO BID for 14 Days, #28 POW Prov:STEVAN VERAS MD 10/02/24 Dicyclomine Hcl (BENTYL CAPSULE) 10 Mg Cp, 1 CAP PO TID, #90 CAP 11 Refills Prov:COELLOLalaJUDITHHERBERTHERMELINDA Queen [employer]PERATOR 01/05/24 Docusate Sodium (Colace) 100 Mg Cap, 1 CAP PO BID, #60 CAP Prov:STEVAN VERAS MD 10/28/23 Pantoprazole Sodium Sesquihydr (Protonix) 40 Mg Tab, 40 MG PO DAILY for 7 Days, #7 TAB Prov:CHANTAL STEWART MD 10/14/23 Reported Medications Simethicone (Simethicone) 80 Mg Chw, 80 MG PO TID, TAB.CHEW 03/12/25 Albuterol Sulfate (VENTOLIN MDI) 90 Mcg Ih, 90 MCG IN, INH 03/12/25 Alprazolam (Alprazolam) 1 Mg Tab, 1 TAB PO TID, #90 TAB 03/12/25 Losartan Potassium (Losartan Potassium) 100 Mg Tab, 100 MG PO DAILY for 30 Days, MG 09/25/24 Famotidine (Famotidine) 40 Mg Tab, 1 TAB PO QHSP PRN 08/07/24 Tamsulosin Hcl (Tamsulosin Hcl) 0.4 Mg Cap, 1 CAP PO DAILY 08/07/24 Duloxetine Hcl (Cymbalta) 60 Mg Cap, 1 CAP PO DAILY, #90 CAP 3 Refills 01/30/24 Sennosides-Docusate Sodium (Senokot S) 1 Tab Tab, 1 TAB PO BID, #30 TAB 10/14/23 Gabapentin (Gabapentin) 600 Mg Tab, 1 TAB PO TID, #90 TAB 3 Refills 10/14/23 Information Source: Patient Mode of Arrival: Ambulatory Timing: Days Duration: Since onset Prehospital treatment: None Quality: Sharp Vomitus: Watery Stool: Watery Severity: Moderate Recent: None Recent Hx of: None Pain Location: Diffuse Modifying Factors: Nothing Associated sign and symptoms: Nausea, Vomiting, Diarrhea, Abdominal Pain Past Medical History PAST MEDICAL HISTORY: HTN, UTI'S Past Medical History (Other): Rectal Prolapse Surgical History: Cholecystectomy, Hernia Repair, Hysterectomy, Tubal Ligation Surgical History (Other): Ileostomy CALENDERER History: Denies all CALENDERER Hx, Other Family History Family History: Reviewed,noncontributory to illness Social History Smoker: Cigarettes Alcohol: Denies ETOH Use Drugs: Denies Drug Use Lives In: Home Constitutional: denies: chills, diaphoresis, fatigue, fever, malaise, sweats, weakness, others EENTM: denies: blurred vision, double vision, ear bleeding, ear discharge, ear drainage, ear pain, ear ringing, eye pain, eye redness, hearing loss, mouth pain, mouth swelling, nasal discharge, nose bleeding, nose congestion, nose pain, photophobia, tearing, throat pain, throat swelling, voice changes, others Respiratory: denies: cough, hemoptysis, orthopnea, SOB at rest, shortness of breath, SOB with excertion, stridor, wheezing, others Cardiovascular: denies: chest pain, dizzy spells, diaphoresis, Dyspnea on exertion, edema, irregular heart beat, left arm pain, lightheadedness, palpitations, PND, syncope, others Gastrointestinal: reports: abdominal pain, diarrhea, nausea, vomiting; denies: abdomen distended, blood streaked bowels, constipated, dysphagia, difficulty swallowing, hematemesis, melena, poor appetite, poor fluid intake, rectal bleeding, rectal pain, others Genitourinary: reports: others (Foul smelling urine); denies: abnormal vagina bleeding, burning, dyspareunia, dysuria, flank pain, frequency, hematuria, incontinence, pain, , vagina discharge, urgency Neurological: denies: dizziness, fainting, headache, left sided numbness, left sided weakness, numbness, paresthesia, pre-existing deficit, right sided numbness, right sided weakness, seizure, speech problems, tingling, tremors, weakness, others Musculoskeletal: denies: back pain, gout, joint pain, joint swelling, muscle pain, muscle stiffness, neck pain, others Integumetry: denies: bruises, change in color, change in hair/nails, dryness, laceration, lesions, lumps, rash, wounds, others Allergic/Immunocompromised: denies: Difficulty Healing, Frequent Infections, Hives, Itching, others Hematologic/Lymphatic: denies: anemia, blood clots, easy bleeding, easy bruising, swollen glands, others Endocrine: denies: excessive hunger, excessive sweating, excessive thirst, excessive urination, flushing, intolerance to cold, intolerance to heat, unexplained weight gain, unexplained weight loss, others Psychiatric: denies: anxiety, bipolar disorder, depression, hopeless, panic disorder, schizophrenia, sleepless, suicidal, others All Other Systems: Reviewed and Negative Physical Exam General Appearance: No Apparent Distress, Normal HEENT: Normal ENT Inspection, Pharynx Normal, TMs Normal Neck: Full Range of Motion, Non-Tender, Normal, Normal Inspection Respiratory: Chest Non-Tender, Lungs Clear, No Accessory Muscle Use, No Respiratory Distress, Normal Breath Sounds Cardiovascular: No Edema, No JVD, No Murmur, No Gallop, Normal Peripheral Pulses, Regular Rate/Rhythm Breast Exam: Deferred Gastrointestinal: No Organomegaly, No Pulsatile Mass, Normal Bowel Sounds, Soft, Tenderness (Diffuse abdominal tenderness) Genitalia: Deferred Pelvic: Deferred Rectal: Deferred Extremities: No calf tenderness, Normal capillary refill, Normal inspection, N ormal range of motion, Non-tender, No pedal edema Musculoskeletal : Apperance: Normal Neurologic: Alert, naphthalene still operator II-XII nml as Tested, No Motor Deficits, Normal Affect, Normal Mood, No Sensory Deficits Cerebellar Function: Normal Reflexes: Normal Skin: Dry, Normal Color, Warm Lymphatic: No Adenopathy Was a procedure done? Was a procedure done?: No GI differential Dx Differential Diagnosis: Gastritis/PUD, Gastroenteritis, GI hemorrhage, Urinary Obstruction, UTI, Urolithiasis, Dehydration X-Ray, Labs, Meds, VS Vital Signs Date Time Temp Pulse Resp B/P (MAP) Pulse Ox O2 Delivery O2 Flow Rate FiO2 06/17/25 14:21 83 18 172/106 06/17/25 14:19 98.0 83 18 172/106 (128) 97 98.0 06/17/25 13:42 98.4 83 18 155/101 (119) 98 98.4 06/17/25 11:51 98.2 80 80 151/104 (120) 99 98.2 06/17/25 11:01 78 06/17/25 10:54 98.1 87 20 182/117 99 98.1 Lab Test 06/17/25 12:11 06/17/25 11:20 Range/Units Urine Color Light-yellow Yellow Urine Clarity Clear Clear Urine pH 5.5 5.0-9.0 Urine Specific [place] 1.014 1.001-1.035 Urine Protein Negative Negative Urine Ketones 1+ H Negative Urine Blood Trace H Negative /uL Urine Nitrite Negative Negative Urine Bilirubin Negative Negative Urine Urobilinogen Normal Negative mg/dL Urine Leukocyte Esterase Negative Negative /uL Urine RBC <1 0 - 4 /hpf Urine Microscopic WBC 2 0-5 /HPF Urine Squamous Epithelial Cells Few <5 /hpf Urine Bacteria None seen None Seen /hpf Urine Mucus Few None Seen Urine Glucose Normal Normal mg/dL White Blood Count 8.1 4.4-10.8 10^3/uL Red Blood Count 4.84 4.0-5.20 10^6/uL Hemoglobin 14.6 12.2-16.2 g/dL Hematocrit 42.9 36.0-46.0 % Mean Corpuscular Volume 88.6 80.0-100.0 fL Mean Corpuscular Hemoglobin 30.2 28.0-32.0 pg Mean Corpuscular Hemoglobin Concent 34.1 32.0-36.0 g/dL Red Cell Distribution Width 14.1 11.8-14.3 % Platelet Count 357 140-450 10^3/uL Mean Platelet Volume 7.4 6.9-10.8 fL Neutrophils (%) (Auto) 52.1 37.0-80.0 % Lymphocytes (%) (Auto) 38.5 10.0-50.0 % Monocytes (%) (Auto) 6.4 0.0-12.0 % Eosinophils (%) (Auto) 1.5 0.0-7.0 % Basophils (%) (Auto) 1.5 0.0-2.0 % Neutrophils # (Auto) 4.2 1.6-8.6 10 ^3/uL Lymphocytes # (Auto) 3.1 0.4-5.4 10 ^3/uL Monocytes # (Auto) 0.5 0-1.3 10 ^3/uL Eosinophils # (Auto) 0.1 0-0.8 10 ^3/uL Basophils # (Auto) 0.1 0-0.2 10 ^3/uL Nucleated Red Blood Cells 0.0 % Sodium Level 139 136-145 mmol/L Potassium Level 3.9 3.5-5.1 mmol/L Chloride Level 107 98-107 mmol/L Carbon Dioxide Level 23 20-31 mmol/L Anion Gap 9 5-15 Blood Urea Nitrogen 10 9-23 mg/dL Creatinine 0.59 0.550-1.02 mg/dL Glomerular Filtration Rate Calc 109 >90 mL/min BUN/Creatinine Ratio 16.9 10.0-20.0 Serum Glucose 93 74-106 mg/dL Calcium Level 9.4 8.7-10.4 mg/dL Total Bilirubin 0.5 0.2-1.0 mg/dL Aspartate Amino Transferase (AST) 22 13-40 U/L Alanine Aminotransferase (ALT) 20 7-40 U/L Alkaline Phosphatase 106 46-116 U/L Total Protein 7.3 5.7-8.2 g/dL Albumin 4.5 3.2-4.8 g/dL Lipase 36 12-53 U/L Current Medications Medications (Trade) Dose Ordered Sig/Pedro Route Start Time Stop Time Status Last Admin Morphine Sulfate 4 mg ONCE ONCE IV 06/17/25 13:30 06/17/25 13:31 DC 06/17/25 14:21 Ondansetron HCl (Zofran) 4 mg ONCE ONCE IV 06/17/25 13:30 06/17/25 13:31 DC 06/17/25 14:20 Time of 1ST Reevaluation: 12:06 Reevaluation 1ST: Unchanged Patient Education/Counseling: Diagnosis, Treatment Family Education/Counseling: No Family Present SEPSIS Sepsis Screen Date sepsis recognized/suspect: Jun 17, 2025 Time Sepsis recognized/suspect: 1055 Recent Procedure: No On Antibiotic Therapy: No Respiratory Rate >20: No Heart Rate >90: No Temp<36 C (96.8 F) or >38.3 C: No SBP <90 or MAP <65 mmHG: No New Acute Mental Status Change: No Is the patient on CPAP, BIPAP,: No Physician Orders Electrocardigram (06/17/25 10:57) Ct Ab Pel With Iv Con Only (06/17/25 11:06) Vital Signs Date Time Temp Pulse Resp B/P (MAP) Pulse Ox O2 Delivery O2 Flow Rate FiO2 06/17/25 14:21 83 18 172/106 06/17/25 14:19 98.0 83 18 172/106 (128) 97 98.0 06/17/25 13:42 98.4 83 18 155/101 (119) 98 98.4 06/17/25 11:51 98.2 80 80 151/104 (120) 99 98.2 06/17/25 11:01 78 06/17/25 10:54 98.1 87 20 182/117 99 98.1 Laboratory Tests Test 06/17/25 11:20 White Blood Count 8.1 10^3/uL (4.4-10.8) Medications Medications Dose Ordered Sig/Pedro Route Start Time Stop Time Status Last Admin Dose Admin Morphine Sulfate 4 mg ONCE ONCE IV 06/17/25 13:30 06/17/25 13:31 DC 06/17/25 14:21 Ondansetron HCl 4 mg ONCE ONCE IV 06/17/25 13:30 06/17/25 13:31 DC 06/17/25 14:20 Departure 1 Departure Time of Disposition: 14:39 (Patient presented with abdominal pain that was concerning for possible appendicits, gastritis, cholecystitis, colitis, gastroenteritis, sbo, or orther possible surgical emergency. Data: 1. I ordered and reviewed the result of at least 3 labs including a CBC, BMP, and Urinalysis. 2. I independently interpreted the following tests: CT Abdomen and Pelvis is concerning for air-fluid levels and possible gastritis .Risk:This patient has a high risk of morbidity due to further diagnostic testing or treatment and may suffer from an acute abdominal process disorder. Workup reveals intractable abdominal pain and patient should be admitted for further workup. and possible expert consultation. ) Impression: Primary Impression: Intractable abdominal pain Additional Impression: Multiple air fluid levels of small intestine determined by X-ray Disposition: ADMITTED INPATIENT Admit to: Tele Condition: Guarded Critical Care Note Critical Care Time?: Yes (35 min-critical care time only) Critical care comment: Intractable abdominal pain Authorized and Performed by: Adamaris Richards MD Total critical care time: Approximately 38 minutes Due to a high probability of clinically significant, life threatening deterioration, the patient required my highest level of preparedness to intervene emergently and I personally spent this critical care time directly and personally managing the patient. This critical care time included obtaining a history; examining the patient; pulse oximetry; ordering and review of studies; arranging urgent treatment with development of a management plan; evaluation of patient's response to treatment; frequent reassessment; and, discussions with other providers. This critical care time was performed to assess and manage the high probability of imminent, life-threatening deterioration that could result in multi-organ failure. It was exclusive of separately billable procedures and treating other patients and teaching time. Please see my other sections and the rest of the note for further information on patient assessment and treatment. Stability Stability form required: No Heart Score Heart Score: Heart Score Response (Comments) Value History N/A 0 EKG N/A 0 Age N/A 0 Risk Factors N/A 0 Troponin N/A 0 Total 0 I personally scribed for ADAMARIS RICHARDS MD ([email or web address]) on 06/17/25 at 11:09. Electronically submitted by Pb Kiran ([email or web address]). ADAMARIS RICHARDS MD Jun 17, 2025 11:09
[2025-06-17 11:37] LABS: Hematocrit 42.9 % (36.0-46.0); Hemoglobin 14.6 g/dL (12.2-16.2); Mean Corpuscular Hemoglobin 30.2 pg (28.0-32.0); Mean Corpuscular Volume 88.6 fL (80.0-100.0); Nucleated Red Blood Cells % 0.0 %
[2025-06-17 11:49] LABS: Alanine Aminotransferase 20 U/L (7-40); Albumin 4.5 g/dL (3.2-4.8); Alkaline Phosphatase 106 U/L (46-116); Anion Gap 9 (5-15); BUN/Creatinine Ratio 16.9 (10.0-20.0); Bilirubin, Total 0.5 mg/dL (0.2-1.0); Blood Urea Nitrogen 10 mg/dL (9-23); Calcium 9.4 mg/dL (8.7-10.4); Carbon Dioxide 23 mmol/L (20-31); Glucose 93 mg/dL (74-106); Lipase 36 U/L (12-53); Potassium 3.9 mmol/L (3.5-5.1); Sodium 139 mmol/L (136-145); Total Protein 7.3 g/dL (5.7-8.2)
[2025-06-17 12:06] LABS: Chloride 107 mmol/L (98-107)
[2025-06-17 12:30] LABS: Urine Protein, UAD Negative (Negative)
--- NOTE | 2025-06-17 13:38 | DVH ---
EXAM: CT CT AB PEL WITH IV CON ONLY HISTORY: abdominal pain TECHNIQUE: Volumetric multidetector CT images of the abdomen and pelvis were obtained after the administration of intravenous contrast. All CT scans at this facility use dose modulation, iterative reconstruction, and/or weight based dosing when appropriate to reduce radiation dose to as low as reasonably achievable. COMPARISON: CT CT AB PEL WITH IV CON ONLY on DOS: 06/01/24 FINDINGS: [LOWER CHEST]: The partially visualized lung bases are clear without a pleural effusion. [LIVER]: Multiple hypoattenuating lesions of the liver, incompletely characterized. Small amount of intermediate density of the lesion along hepatic segment 4A. [GALLBLADDER AND BILIARY TREE]: Gallbladder is surgically absent. [SPLEEN]: Unremarkable. [PANCREAS]: Unremarkable. [ADRENAL GLANDS]: Unremarkable [KIDNEYS]: No hydronephrosis. No nephroureterolithiasis. No suspicious focal lesion. [BLADDER]: Unremarkable for the degree distention. [REPRODUCTIVE ORGANS]: Postsurgical changes of hysterectomy. [BOWEL/MESENTERY]: Possible distal circumferential esophageal wall thickening. Indeterminate etiology of slight mucosal hyperenhancement of the stomach with gastric rugal prominence. Inconspicuous air-fluid levels in the left karli abdominal jejunal loops measuring up to 2.[address] evidence of bowel obstruction. [ASCITES]: Absent [LYMPHADENOPATHY]: No pathologically enlarged lymph nodes by CT size criteria [VASCULATURE]: No aneurysmal dilatation. [ABDOMINAL WALL]: Small fat containing umbilical hernia. Postsurgical changes likely related to prior hernia repair versus ostomy reversal in the right lower quadrant. [MUSCULOSKELETAL]: Postsurgical changes at L4-5 with intervertebral disc spacer at L4-5. Slight cortical dehiscence into the inferior endplate of L4 and superior endplate of L5. Multifocal degenerative change of the visualized spine. IMPRESSION: 1. Inconspicuous air-fluid levels in the left karli abdominal jejunal loops measuring up to 2.[address] evidence of bowel obstruction. Correlate for enteritis versus within normal limits 3. Indeterminate etiology of slight mucosal hyperenhancement of the stomach with gastric rugal prominence. Correlate for underlying gastritis. 4. Indeterminate hypoattenuating lesions of the liver. 5. Consider nonemergent MRI liver protocol with and without contrast.
[2025-06-17] MEDS: ONDANSETRON HCL 4 MG/2 ML VIAL IV ONE (14:20)
[2025-06-17] MEDS: MORPHINE SULFATE 4 MG/ML SYR/VIAL IV ONE (14:21)
[2025-06-17] MEDS: SODIUM CHLORIDE 0.9% 1,000 ML IV ONE (14:21)
--- NOTE | 2025-06-17 15:44 | DVHHP2 ---
History of Present Illness Reason for Visit: abd pain History of Present Illness 50-year-old female with extensive past medical history including urinary retention, recurrent UTIs, large vaginal prolapse, hypertension, acute on chronic pain syndrome, hypothyroidism, vascular insufficiency, insomnia, and bradycardia. She has a significant surgical history including bladder destruction in January 2025, vaginal prolapse class reversal by Dr. Guo in September 2024, colonoscopy in 2023 reportedly without notable findings, L-spine surgery, cholecystectomy, hernia repair, hysterectomy with tubal ligation, and ileostomy with later reversal. The patient presents with epigastric abdominal pain that started on Friday. She describes the pain beginning when she stretched, noting swelling and pain in the right upper quadrant that radiated to the front and back. She reports 12 episodes of vomiting without blood and also complains of rectal pain and bleeding, associated with rectal prolapse during straining. She is currently experiencing diarrhea. Patient reports this episode feels similar to a bowel obstruction she experienced in January. She is followed by Dr. Guo, who performed prior hernia surgery and is scheduled for rectal surgery at [facility] [place] in July 2025. She denies chest pain and shortness of breath. She admits to occasional marijuana use but denies alcohol. Labs and imaging in ED revealed: Zofran, morphine, and IV fluids administered; CBC unremarkable; CMP unremarkable; urinalysis pending. CT abdomen/pelvis revealed air-fluid levels in the small bowel and dilated loops up to 2.5 cm without bari obstruction, and a liver lesion. Given symptoms, exam, and CT findings, she will be admitted NPO, placed on IV fluids, NG decompression as needed, and surgical consult with Dr. Guo will be obtained. Will initiate prophylactic antibiotics and admit to [facility] for further evaluation and surgical consult. Past Medical History See HPI above Past Surgical History See HPI above Family History Reviewed, non-contributory to the management of this case. Past Social History The patient lives at home, smoked marijuana Review of Systems Constitutional: No: Fever, Chills, Sweats, Weakness, Malaise, Other Eyes: No: Pain, Vision change, Conjunctivae inflammation, Eyelid inflammation, Other, Redness ENT: No: Ear pain, Ear discharge, Nose pain, Nose discharge, Nose congestion, Mouth pain, Mouth swelling, Throat pain, Throat swelling, Other Respiratory: No: Cough, Dry, Shortness of breath, SOB with excertion, Wheezing, Hemoptysis, Pleuritic Pain, Sputum, Wheezing, Other Cardiovascular: No: Chest Pain, Palpitations, Orthopnea, Paroxysmal Noc. Dyspnea, Edema, Lt Headedness, Other Gastrointestinal: Nausea, Vomiting, Abdominal Pain; No: Diarrhea, Constipation, Melena, Hematochezia, Other Genitourinary: No Dysuria, No Frequency, No Incontinence, No Hematuria, No Retention, No Other Musculoskeletal: No: other, neck pain, shoulder pain, arm pain, back pain, hand pain, leg pain, foot pain Skin: No: Rash, Lesions, Jaundice, Bruising, Other Neurological: No: Weakness, Numbness, Incoordination, Change in speech, Confusion, Seizures, Other Allergies: Coded Allergies: NO KNOWN ALLERGIES (Unverified , 05/10/14) Exam Vital Signs Vital Signs Date Time Temp Pulse Resp B/P (MAP) Pulse Ox O2 Delivery O2 Flow Rate FiO2 06/17/25 14:21 83 18 172/106 06/17/25 14:19 98.0 97 98.0 General Appearance: Alert, Oriented X3, Cooperative, No acute distress HEENT: Atraumatic, PERRLA, EOMI, Mucous membr. moist/pink Respiratory: Clear to auscultation, Normal air movement Cardiovascular: Regular rate, Normal S1, Normal S2, No murmurs Abdominal: Soft, No tenderness, No hepatospenomegaly, Other (right upper abd with distention, no guarding no rebound tenderness ) Extremities: No clubbing, No cyanosis, No edema, Normal pulses, No tenderness/swelling Skin: No rashes, No breakdown, No significant lesion Neuro: Normal gait, Normal speech, Strength at 5/5 X4 ext, Normal tone, Sensation intact, Cranial nerves 3-12 NL Psych/Mental Status: Mental status NL, Mood NL Labs/Xrays CT scan abdomen pelvis shows and copious air fluid levels left hemiabdomen with loops distended 2.5 cm no obstruction enteritis liver lesion I reviewed labs, imaging CT scan abdomen pelvis, EKG and all diagnostic studies on this patient from ED records and the medical chart Labs Test 06/17/25 12:11 06/17/25 11:20 Range/Units Urine Color Light-yellow Yellow Urine Clarity Clear Clear Urine pH 5.5 5.0-9.0 Urine Specific [place] 1.014 1.001-1.035 Urine Protein Negative Negative Urine Ketones 1+ H Negative Urine Blood Trace H Negative /uL Urine Nitrite Negative Negative Urine Bilirubin Negative Negative Urine Urobilinogen Normal Negative mg/dL Urine Leukocyte Esterase Negative Negative /uL Urine RBC <1 0 - 4 /hpf Urine Microscopic WBC 2 0-5 /HPF Urine Squamous Epithelial Cells Few <5 /hpf Urine Bacteria None seen None Seen /hpf Urine Mucus Few None Seen Urine Glucose Normal Normal mg/dL White Blood Count 8.1 4.4-10.8 10^3/uL Red Blood Count 4.84 4.0-5.20 10^6/uL Hemoglobin 14.6 12.2-16.2 g/dL Hematocrit 42.9 36.0-46.0 % Mean Corpuscular Volume 88.6 80.0-100.0 fL Mean Corpuscular Hemoglobin 30.2 28.0-32.0 pg Mean Corpuscular Hemoglobin Concent 34.1 32.0-36.0 g/dL Red Cell Distribution Width 14.1 11.8-14.3 % Platelet Count 357 140-450 10^3/uL Mean Platelet Volume 7.4 6.9-10.8 fL Neutrophils (%) (Auto) 52.1 37.0-80.0 % Lymphocytes (%) (Auto) 38.5 10.0-50.0 % Monocytes (%) (Auto) 6.4 0.0-12.0 % Eosinophils (%) (Auto) 1.5 0.0-7.0 % Basophils (%) (Auto) 1.5 0.0-2.0 % Neutrophils # (Auto) 4.2 1.6-8.6 10 ^3/uL Lymphocytes # (Auto) 3.1 0.4-5.4 10 ^3/uL Monocytes # (Auto) 0.5 0-1.3 10 ^3/uL Eosinophils # (Auto) 0.1 0-0.8 10 ^3/uL Basophils # (Auto) 0.1 0-0.2 10 ^3/uL Nucleated Red Blood Cells 0.0 % Sodium Level 139 136-145 mmol/L Potassium Level 3.9 3.5-5.1 mmol/L Chloride Level 107 98-107 mmol/L Carbon Dioxide Level 23 20-31 mmol/L Anion Gap 9 5-15 Blood Urea Nitrogen 10 9-23 mg/dL Creatinine 0.59 0.550-1.02 mg/dL Glomerular Filtration Rate Calc 109 >90 mL/min BUN/Creatinine Ratio 16.9 10.0-20.0 Serum Glucose 93 74-106 mg/dL Calcium Level 9.4 8.7-10.4 mg/dL Total Bilirubin 0.5 0.2-1.0 mg/dL Aspartate Amino Transferase (AST) 22 13-40 U/L Alanine Aminotransferase (ALT) 20 7-40 U/L Alkaline Phosphatase 106 46-116 U/L Total Protein 7.3 5.7-8.2 g/dL Albumin 4.5 3.2-4.8 g/dL Lipase 36 12-53 U/L SEPSIS Sepsis Screen Date sepsis recognized/suspect: Jun 17, 2025 Time Sepsis recognized/suspect: 1201 Recent Procedure: No On Antibiotic Therapy: Yes Respiratory Rate >20: No Heart Rate >90: No Temp<36 C (96.8 F) or >38.3 C: No SBP <90 or MAP <65 mmHG: No New Acute Mental Status Change: No Is the patient on CPAP, BIPAP,: No Physician Orders Electrocardigram (06/17/25 10:57) Ct Ab Pel With Iv Con Only (06/17/25 11:06) Vital Signs Date Time Temp Pulse Resp B/P (MAP) Pulse Ox O2 Delivery O2 Flow Rate FiO2 06/17/25 14:21 83 18 172/106 06/17/25 14:19 98.0 83 18 172/106 (128) 97 98.0 06/17/25 13:42 98.4 83 18 155/101 (119) 98 98.4 06/17/25 11:51 98.2 80 80 151/104 (120) 99 98.2 06/17/25 11:01 78 06/17/25 10:54 98.1 87 20 182/117 99 98.1 Laboratory Tests Test 06/17/25 11:20 White Blood Count 8.1 10^3/uL (4.4-10.8) Medications Medications Dose Ordered Sig/Pedro Route Start Time Stop Time Status Last Admin Dose Admin Morphine Sulfate 4 mg ONCE ONCE IV 06/17/25 13:30 06/17/25 13:31 DC 06/17/25 14:21 4 MG Ondansetron HCl 4 mg ONCE ONCE IV 06/17/25 13:30 06/17/25 13:31 DC 06/17/25 14:20 4 MG Assessment/Plan Assessment/Plan 50-year-old female with suspected partial bowel obstruction and rectal prolapse, admitted for NPO, IV hydration, surgical evaluation, and pain control. acure Partial small bowel obstruction (suspected) CT shows dilated loops (2.5 cm) and air-fluid levels, no bari obstruction NPO, IVF with normal saline NG tube since vomiting persists Surgical consult: page Dr. Garrido Monitor abdominal exam, pain, and emesis ordred diluadid prn pain ordered ivf ordered protonix History of rectal prolapse with current rectal pain and bleeding Due for rectal surgery at [facility] Jul 2025 Rectal exam no prolapse seen no bleeding no excoriations Monitor stooling and hemoglobin GI follow-up coordination as needed Acute on chronic abdominal pain ordered diluadid PRN ordered Zofran PRN for nausea Serial abdominal exams Chronic pelvic organ prolapse, s/p multiple surgeries Follow with Dr. Garrido Note prior bladder destruction and reversal h/o Recurrent UTIs, urinary retention Monitor I&O, urinalysis pending Consider [place] or bladder scan if needed acute Liver lesion (incidental) Noted on CT May require outpatient abdominal MRI or hepatology follow-up chronic Hypertension Continue home meds if able Monitor BP chronic Hypothyroidism Continue home levothyroxine if PO tolerated TSH check if not done recently Vascular insufficiency, insomnia, bradycardia Supportive care Continue home meds Monitor vitals closely Occasional marijuana use Documented No acute concern unless altering mental status chronic problems Urinary retention Recurrent UTIs Vaginal prolapse Hypertension Chronic abdominal pain Hypothyroidism Insomnia Bradycardia Vascular insufficiency bladder destruction/reversal, ileostomy/reversal, hernia repair, hysterectomy, L-spine surgery, gallbladder removal FEN / PPx Fluids: IV NS at 100 mL/hr while NPO Electrolytes: Monitor BMP daily Nutrition: NPO for now; DVT Prophylaxis: Sequential compression devices (SCDs) GI Prophylaxis: protonix Disposition Admit to medicine service. NPO with IV fluids, surgical consult (Dr. Garrido) for possible bowel obstruction and rectal prolapse. Plan discussed with: Patient Date of Service: Jun 17, 2025 Billing Provider: ROCAEL ROBERTO DNP Common Visit Codes: [id number] INP/OBS CARE (HIGH) ROCAEL ROBERTO DNP Jun 17, 2025 15:44
[2025-06-17] MEDS ORDERED: NITROGLYCERIN 0.4 MG SL TAB SL PRN (15:45)
[2025-06-17] MEDS: PANTOPRAZOLE 40 MG/10 ML VIAL INJ IV ONE (16:24)
[2025-06-17] MEDS: SODIUM CHLORIDE 0.9% 1,000 ML IV SCH (16:25)
[2025-06-17] MEDS: TAMSULOSIN HYDROCHLORIDE 0.4 MG CAP PO SCH (18:38)
[2025-06-17] MEDS: HYDROmorphone HCL 2 MG/ML VL/or syr IV PRN (21:04)
[2025-06-17] MEDS: ONDANSETRON HCL 4 MG/2 ML VIAL IV PRN (21:05)
[2025-06-18 03:24] VITALS: PULSE 80; RESP 18; O2SAT 97
[2025-06-18 03:36] LABS: Alanine Aminotransferase 23 U/L (7-40); Albumin 4.5 g/dL (3.2-4.8); Alkaline Phosphatase 108 U/L (46-116); Anion Gap 13 (5-15); BUN/Creatinine Ratio 20.3 (10.0-20.0); Blood Urea Nitrogen 13 mg/dL (9-23); Calcium 9.6 mg/dL (8.7-10.4); Carbon Dioxide 22 mmol/L (20-31); Chloride 106 mmol/L (98-107); Sodium 141 mmol/L (136-145); Total Protein 7.4 g/dL (5.7-8.2)
[2025-06-18 03:37] LABS: Bilirubin, Total 0.7 mg/dL (0.2-1.0)
[2025-06-18 03:41] LABS: Glucose 121 mg/dL (74-106); Potassium 3.4 mmol/L (3.5-5.1)
[2025-06-18] MEDS: HYDROmorphone HCL 2 MG/ML VL/or syr IV PRN (04:21)
[2025-06-18] MEDS: diphenhydrAMINE HCL 50 MG/1 ML VL IV ONE (04:33)
[2025-06-18 04:36] LABS: Hematocrit 42.9 % (36.0-46.0); Hemoglobin 14.4 g/dL (12.2-16.2); Mean Corpuscular Hemoglobin 29.9 pg (28.0-32.0); Mean Corpuscular Volume 89.0 fL (80.0-100.0); Nucleated Red Blood Cells % 0.1 %
--- NOTE | 2025-06-18 05:13 | DVH ---
CHEST RADIOGRAPH Indication: ng tube placement Technique: Single frontal view of the chest was obtained COMPARISON: XY CHEST XRAY 1 VIEW on DOS: 04/12/25, XY CHEST TWO VIEWS ROUTINE on DOS: 05/11/24, XY CHEST XRAY 1 VIEW on DOS: 01/23/24, XY CHEST XRAY 1 VIEW on DOS: 01/22/24, XY CHEST PORTABLE on DOS: 10/21/23 FINDINGS: Lines and Tubes: None Lungs: The lung apices are excluded from the image. Pleura: No effusion. No pneumothorax. Cardiomediastinal contours: Unremarkable Bones: Unremarkable IMPRESSION: 1. No acute cardiopulmonary disease. Excluded lung apices. 2. No identifiable lines or tubes.
--- NOTE | 2025-06-18 05:34 | DVH ---
CHEST RADIOGRAPH Indication: ng tube placement verification Technique: Single frontal view of the chest was obtained COMPARISON: XY CHEST XRAY 1 VIEW on DOS: 06/18/25, XY CHEST XRAY 1 VIEW on DOS: 04/12/25, XY CHEST TWO VIEWS ROUTINE on DOS: 05/11/24, XY CHEST XRAY 1 VIEW on DOS: 01/23/24, XY CHEST XRAY 1 VIEW on DOS: 01/22/24 FINDINGS: Lines and Tubes: Enteric catheter terminates within the gastric lumen. Lungs: Clear. The bilateral lung apices are excluded. Pleura: No effusion. No pneumothorax. Cardiomediastinal contours: Unremarkable Bones: Unremarkable IMPRESSION: 1. Enteric catheter terminates within the gastric lumen.
[2025-06-18 07:22] VITALS: PULSE 84; RESP 20; O2SAT 99
--- NOTE | 2025-06-18 10:45 | DVHINCON2 ---
Consultation - Surgical Date Seen: Jun 18, 2025 Referring Physician Reason for Consultation Possible SBO History of Present Illness History of Present Illness Mrs. Schmitz is a 50-year-old female who presents due to right flank cramping and pain that radiates to the back. Before this pain presented she had been feeling unwell from a GI standpoint since last week, where she started to have diarrhea and vomiting. States that even the smell food get her nauseous and vomiting. Given that she was feeling bad see she switched to a liquid diet on and on last Friday she started fasting, but continued to have diarrhea and vomiting. She has been having 4-5 bowel movements daily, watery since . Her last emesis episode was at 1:00 a.m. today, small just enteric juices. Patient denies eating anything out of the ordinary, being sick/recently sick or having any sick contacts lately. Denies any blood in the vomit or in the stool. Denies fevers, chills. Past Medical/Surgical History Past Medical/Surgical History Past medical history: HTN, recurrent UTIs, hypothyroidism, Bradycardia, Papilledema, IBS, SBO, Peripheral Neuropathy, Hiatal hernia, Esophagitis, Gastritis, C diff colitis Past surgical history: Spinal fusion surgery, Cholecystectomy, Hernia Repair x3, Hysterectomy, Tubal Ligation, sigmoid resection with protective loop ileostomy due to rectal prolapse, ileostomy reversal Family and Social History Family and Social History Family history noncontributory Allergies and medications Allergies: Coded Allergies: NO KNOWN ALLERGIES (Unverified , 05/10/14) Home Meds Active Scripts Furosemide (Lasix) 20 Mg Tb, 1 TAB PO DAILY PRN, #30 TAB 0 Refills as needed, once, if evening leg swelling Prov:MARIUM VALVERDE MD 04/28/25 Tramadol HCl (Tramadol HCl) 50 Mg Tab, 50 MG PO TIDP PRN for 10 Days, #30 TAB 0 Refills Prov:MARIUM VALVERDE MD 04/28/25 Zolpidem Tartrate (Ambien) 10 Mg Tab, 1 TAB PO QPM PRN, #20 TAB 0 Refills Prov:MARIUM VALVERDE MD 04/28/25 Baclofen (Baclofen) 10 Mg Tab, 10 MG PO BIDP PRN for 10 Days, #20 TAB 1 Refill Prov:MARIUM VALVERDE MD 04/28/25 Nitrofurantoin (Nitrofurantoin) 100 Mg Cap, 1 CAP PO BID for 10 Days, #20 CAP Prov:MARIUM VALVERDE MD 04/28/25 Vancomycin HCl (Vancomycin HCl) 125 Mg Cap, 125 MG PO Q6HR, #98 CAP 125 mg 4 times a day for 2 weeks then 3 times a day for 1 week then twice a day for 1 week then once a day for 1 week Prov:STEVAN VERAS MD 04/18/25 Acetazolamide (Diamox) 250 Mg Tb, 500 MG PO Q12HR for 30 Days, #120 TAB Prov:JACQUELINE PERDOMO MD 03/15/25 Cholestyramine (QUESTRAN POWDER) 4 Gm Pw, 4 GM PO BID for 14 Days, #28 POW Prov:STEVAN VERAS MD 10/02/24 Dicyclomine Hcl (BENTYL CAPSULE) 10 Mg Cp, 1 CAP PO TID, #90 CAP 11 Refills Prov:NICHO AMIN PLAY THER[employer]IST 01/05/24 Docusate Sodium (Colace) 100 Mg Cap, 1 CAP PO BID, #60 CAP Prov:STEVAN VERAS MD 10/28/23 Pantoprazole Sodium Sesquihydr (Protonix) 40 Mg Tab, 40 MG PO DAILY for 7 Days, #7 TAB Prov:CHANTAL STEWART MD 10/14/23 Reported Medications Simethicone (Simethicone) 80 Mg Chw, 80 MG PO TID, TAB.CHEW 03/12/25 Albuterol Sulfate (VENTOLIN MDI) 90 Mcg Ih, 90 MCG IN, INH 03/12/25 Alprazolam (Alprazolam) 1 Mg Tab, 1 TAB PO TID, #90 TAB 03/12/25 Losartan Potassium (Losartan Potassium) 100 Mg Tab, 100 MG PO DAILY for 30 Days, MG 09/25/24 Famotidine (Famotidine) 40 Mg Tab, 1 TAB PO QHSP PRN 08/07/24 Tamsulosin Hcl (Tamsulosin Hcl) 0.4 Mg Cap, 1 CAP PO DAILY 08/07/24 Duloxetine Hcl (Cymbalta) 60 Mg Cap, 1 CAP PO DAILY, #90 CAP 3 Refills 01/30/24 Sennosides-Docusate Sodium (Senokot S) 1 Tab Tab, 1 TAB PO BID, #30 TAB 10/14/23 Gabapentin (Gabapentin) 600 Mg Tab, 1 TAB PO TID, #90 TAB 3 Refills 10/14/23 Review of systems Review of Systems: HEENT:Normal, CVS:Normal, RESPIRATORY:Normal, GI:Abnormal (See HPI), :Abnormal (History of recurrent UTIs), MSK:Normal, NEURO:Normal Examination Vital signs Vital Signs Date Time Temp Pulse Resp B/P (MAP) Pulse Ox O2 Delivery O2 Flow Rate FiO2 06/18/25 09:16 78 12 144/84 06/18/25 09:16 97.8 99 97.8 06/18/25 07:22 Room Air* 0 21 Medications Current Medications Medications (Trade) Dose Ordered Sig/Pedro Route PRN Reason Start Time Stop Time Status Last Admin Tamsulosin HCl (Flomax) 0.4 mg QPM PO 06/17/25 18:00 06/17/25 18:38 Sodium Chloride 1,000 ml @ 100 mls/hr Q10H IV 06/17/25 15:45 06/18/25 01:45 Ondansetron HCl (Zofran) 4 mg Q4HP PRN IV NAUSEA / VOMITING 06/17/25 15:45 06/18/25 09:16 Docusate Sodium (Colace Capsule) 100 mg BIDPRN PRN PO FOR CONSTIPATION 06/17/25 15:45 Enoxaparin Sodium (Lovenox) 40 mg DAILY SC 06/18/25 10:00 Nitroglycerin (Ntrostat Sublingual) 0.4 mg Q5MINP PRN SL FOR CHEST PAIN 06/17/25 15:45 Hydromorphone HCl (Dilaudid Injection) 0.5 mg Q2HPRN PRN IV BREAKTHROUGH PAIN 06/17/25 15:45 06/18/25 09:16 Hydromorphone HCl (Dilaudid Injection) 0.25 mg Q4HPRN PRN IV SEVERE PAIN (7-10 PAIN SCALE) 06/17/25 15:45 06/18/25 04:21 Pantoprazole Sodium (Protonix) 40 mg DAILY IV 06/18/25 10:00 Laboratory Labs Test 06/18/25 04:15 12/6/25 02:52 06/17/25 12:11 06/17/25 11:20 Range/Units White Blood Count 10.8 # 4.4-10.8 10^3/uL Red Blood Count 4.82 4.0-5.20 10^6/uL Hemoglobin 14.4 12.2-16.2 g/dL Hematocrit 42.9 36.0-46.0 % Mean Corpuscular Volume 89.0 80.0-100.0 fL Mean Corpuscular Hemoglobin 29.9 28.0-32.0 pg Mean Corpuscular Hemoglobin Concent 33.5 32.0-36.0 g/dL Red Cell Distribution Width 14.0 11.8-14.3 % Platelet Count 342 140-450 10^3/uL Mean Platelet Volume 7.6 6.9-10.8 fL Neutrophils (%) (Auto) 70.8 37.0-80.0 % Lymphocytes (%) (Auto) 21.6 10.0-50.0 % Monocytes (%) (Auto) 5.6 0.0-12.0 % Eosinophils (%) (Auto) 1.0 0.0-7.0 % Basophils (%) (Auto) 1.0 0.0-2.0 % Neutrophils # (Auto) 7.7 1.6-8.6 10 ^3/uL Lymphocytes # (Auto) 2.3 0.4-5.4 10 ^3/uL Monocytes # (Auto) 0.6 0-1.3 10 ^3/uL Eosinophils # (Auto) 0.1 0-0.8 10 ^3/uL Basophils # (Auto) 0.1 0-0.2 10 ^3/uL Nucleated Red Blood Cells 0.1 % Sodium Level 141 136-145 mmol/L Potassium Level 3.4 L 3.5-5.1 mmol/L Chloride Level 106 98-107 mmol/L Carbon Dioxide Level 22 20-31 mmol/L Anion Gap 13 5-15 Blood Urea Nitrogen 13 9-23 mg/dL Creatinine 0.64 0.550-1.02 mg/dL Glomerular Filtration Rate Calc 107 >90 mL/min BUN/Creatinine Ratio 20.3 H 10.0-20.0 Serum Glucose 121 H 74-106 mg/dL Calcium Level 9.6 8.7-10.4 mg/dL Total Bilirubin 0.7 0.2-1.0 mg/dL Aspartate Amino Transferase (AST) 20 13-40 U/L Alanine Aminotransferase (ALT) 23 7-40 U/L Alkaline Phosphatase 108 46-116 U/L Total Protein 7.4 5.7-8.2 g/dL Albumin 4.5 3.2-4.8 g/dL Urine Color Light-yellow Yellow Urine Clarity Clear Clear Urine pH 5.5 5.0-9.0 Urine Specific [place] 1.014 1.001-1.035 Urine Protein Negative Negative Urine Ketones 1+ H Negative Urine Blood Trace H Negative /uL Urine Nitrite Negative Negative Urine Bilirubin Negative Negative Urine Urobilinogen Normal Negative mg/dL Urine Leukocyte Esterase Negative Negative /uL Urine RBC <1 0 - 4 /hpf Urine Microscopic WBC 2 0-5 /HPF Urine Squamous Epithelial Cells Few <5 /hpf Urine Bacteria None seen None Seen /hpf Urine Mucus Few None Seen Urine Glucose Normal Normal mg/dL Lipase 36 12-53 U/L Examination: GENERAL:Normal (AAO x3), HEENT:Normal (NG tube in place with a proximally 400 mL of thin green tinged fluid), LUNGS:Normal (Nonlabored breathing with symmetric expansion), ABDOMEN:Normal (Nondistended, prior scars healed, no hernias, soft, depressible, nontender) Problem List/Assessment/Plan Problems: (1) Enteritis Assessment and Plan Mrs. Schmitz is a 50-year-old female who presented with over a week of nausea vomiting and diarrhea. I was consulted for the possibility of small- bowel obstruction. CT scan was reviewed and there are no small bowel dilations or transition points or anything to indicate a small-bowel obstruction. Given her presenting symptoms this is likely due to enteritis. Recommend: 1. Bowel rest today, okay for ice chips 2. Stool cultures 3. Liquid diet starting tomorrow depending on how the patient feels Plan discussed with Plan discussed with: Patient Visit Coding Surgery Date of Service if different f: Jun 18, 2025 Billing Provider: CADY HINKLE MD Surgery Visit Codes: 25409 - INP CONSULT <110 MIN CADY HINKLE MD Jun 18, 2025 10:45
[2025-06-18] MEDS: ENOXAPARIN SOD 40 MG/0.4 ML SYRINGE SC SCH (11:08)
[2025-06-18] MEDS: PANTOPRAZOLE 40 MG/10 ML VIAL INJ IV SCH (11:09)
--- NOTE | 2025-06-18 13:47 | DVHPN2 ---
Subjective Overnight events noted. Patient's has a partial small-bowel obstruction currently has a NG tube on ice chips. Changes from previous H/P or p: No Changes Eyes: No Pain, No Vision change, No Conjunctivae inflammation, No Eyelid inflammation, No Other, No Redness ENT: No Ear pain, No Ear discharge, No Nose pain, No Nose discharge, No Nose congestion, No Mouth pain, No Mouth swelling, No Throat pain, No Throat swelling, No Other Cardiovascular: No Chest Pain, No Palpitations, No Orthopnea, No Paroxysmal Noc. Dyspnea, No Edema, No Lt Headedness, No Other Respiratory: No Cough, No Dry, No Shortness of breath, No SOB with excertion, No Wheezing, No Hemoptysis, No Pleuritic Pain, No Sputum, No Other Gastrointestinal: Nausea, Vomiting, Abdominal Pain; No Diarrhea, No Constipation, No Melena, No Hematochezia, No Other Genitourinary: No Dysuria, No Frequency, No Incontinence, No Hematuria, No Retention, No Other Musculoskeletal: No other, No neck pain, No shoulder pain, No arm pain, No back pain, No hand pain, No leg pain, No foot pain Skin: No Rash, No Lesions, No Jaundice, No Bruising, No Other Objective Vitals Vital Signs Date Time Temp Pulse Resp B/P (MAP) Pulse Ox O2 Delivery O2 Flow Rate FiO2 06/18/25 09:46 83 12 144/84 06/18/25 09:16 97.8 99 97.8 06/18/25 07:22 Room Air* 0 21 Exam HEENT pupils are reactive Neck is supple CV is S1-S2 regular rate and rhythm Respiratory diminished breath sounds bases GI sluggish bowel sounds Extremity no pedal edema WEAVER TIRE CORD no motor deficit Medications Current Medications Medications Dose Ordered Sig/Pedro Route Start Time Stop Time Status Last Admin Dose Admin Tamsulosin HCl 0.4 mg QPM PO 06/17/25 18:00 06/17/25 18:38 0.4 MG Sodium Chloride 1,000 ml @ 100 mls/hr Q10H IV 06/17/25 15:45 06/18/25 11:45 100 MLS/HR Ondansetron HCl 4 mg Q4HP PRN IV 06/17/25 15:45 06/18/25 09:16 4 MG Docusate Sodium 100 mg BIDPRN PRN PO 06/17/25 15:45 Enoxaparin Sodium 40 mg DAILY SC 06/18/25 10:00 06/18/25 11:08 40 MG Nitroglycerin 0.4 mg Q5MINP PRN SL 06/17/25 15:45 Hydromorphone HCl 0.5 mg Q2HPRN PRN IV 06/17/25 15:45 06/18/25 09:16 0.5 MG Hydromorphone HCl 0.25 mg Q4HPRN PRN IV 06/17/25 15:45 06/18/25 04:21 0.25 MG Pantoprazole Sodium 40 mg DAILY IV 06/18/25 10:00 06/18/25 11:09 40 MG Laboratory Results Laboratory Tests 06/18/25 02:52 06/18/25 04:15 Chemistry Test 06/18/25 02:52 Albumin 4.5 g/dL (3.2-4.8) Calcium Level 9.6 mg/dL (8.7-10.4) Total Protein 7.4 g/dL (5.7-8.2) LFT Test 06/18/25 02:52 Alanine Aminotransferase (ALT) 23 U/L (7-40) Alkaline Phosphatase 108 U/L (46-116) Aspartate Amino Transferase (AST) 20 U/L (13-40) Total Bilirubin 0.7 mg/dL (0.2-1.0) Urinalysis Test 06/17/25 12:11 Urine Color Light-yellow (Yellow) Urine Clarity Clear (Clear) Urine pH 5.5 (5.0-9.0) Urine Specific [place] 1.014 (1.001-1.035) Urine Protein Negative (Negative) Urine Ketones 1+ (Negative) H Urine Blood Trace /uL (Negative) H Urine Nitrite Negative (Negative) Urine Bilirubin Negative (Negative) Urine Urobilinogen Normal mg/dL (Negative) Urine Leukocyte Esterase Negative /uL (Negative) Urine RBC <1 /hpf (0 - 4) Urine Microscopic WBC 2 /HPF (0-5) Urine Squamous Epithelial Cells Few /hpf (<5) Urine Bacteria None seen /hpf (None Seen) Urine Mucus Few (None Seen) Urine Glucose Normal mg/dL (Normal) Assessment/Plan Assessment/Plan 50-year-old female with a known history of hypertension, recurrent UTI, urinary retention, papilledema, irritable bowel syndrome, peripheral neuropathy, gastritis, status post spinal fusion surgery in the past who initially presented to the hospitalist with the abdominal pain nausea and vomiting found to have 1. Intractable abdominal pain 2. Partial small-bowel obstruction 3. Recurrent UTI 4. IBS 5. Gastritis/enteritis 6. Rectal prolapse 7. Hypertension -continue NG tube, follow up General surgery recommendations patient is currently scheduled [place] [facility]. Plan discussed with: Patient Problem List: (1) Gastritis (2) N&V (nausea and vomiting) (3) Intractable abdominal pain Date of Service: Jun 18, 2025 Billing Provider: JACQUELINE PERDOMO MD Common Visit Codes: [id number] INP/OBS CARE(HIGH) JACQUELINE PERDOMO MD Jun 18, 2025 13:47
[2025-06-18 15:57] VITALS: BP 169/101; PULSE 71; RESP 20; TEMP 96.9; O2SAT 97
[2025-06-18] MEDS ORDERED: SPIR25TA8 PO (16:35)
[2025-06-18] MEDS ORDERED: VALS1TAB59 PO (16:35)
[2025-06-18] MEDS ORDERED: DULO1CAP6 PO (16:35)
[2025-06-18] MEDS ORDERED: FURO20TA4 PO (16:36)
[2025-06-18] MEDS ORDERED: TIZA-142 PO (16:36)
[2025-06-18] MEDS ORDERED: LACT10SO3 PO (16:38)
[2025-06-18] MEDS ORDERED: DOCU-265 PO (16:38)
[2025-06-18] MEDS ORDERED: HYDR-4798 PO (16:38)
[2025-06-18] MEDS ORDERED: PROM25TA10 PO (16:39)
[2025-06-18 20:00] VITALS: PULSE 82
[2025-06-18 21:00] VITALS: BP 139/84; PULSE 63; RESP 17; TEMP 97.7; O2SAT 99
[2025-06-19] VITALS (7 sets, daily range): BP systolic 120–153; BP diastolic 75–96; PULSE 68–78; RESP 18; TEMP 97.4–98; O2SAT 96–99
--- NOTE | 2025-06-19 10:29 | DVH ---
XY CHEST XRAY 1 VIEW, HISTORY: Confirm NG tube placement COMPARISON: XY CHEST XRAY 1 VIEW on DOS: 06/18/25, XY CHEST XRAY 1 VIEW on DOS: 06/18/25, XY CHEST XRAY 1 VIEW on DOS: 04/12/25 XY CHEST XRAY 1 VIEW on DOS: 06/18/25, XY CHEST XRAY 1 VIEW on DOS: 06/18/25, XY CHEST XRAY 1 VIEW on DOS: 04/12/25 TECHNICAL DATA: 1 view of the chest was obtained. FINDINGS: Lines and tubes: Stable NG tube location. Cardiomediastinal silhouette: normal Pulmonary vasculature: normal Lung expansion: normal Lung airspace: normal Lung interstitium: normal Pleura: normal Pneumothorax: no Bones: Unremarkable Other: no IMPRESSION: No acute intrathoracic abnormality. Stable NG tube location.
--- NOTE | 2025-06-19 11:08 | DVHPN2 ---
Progress Note - Surgical Date Seen: Jun 19, 2025 Post op day Post op day: 0 Subjective Patient reports: Feels better (Patient feels better this morning, no abdominal pain complaints, had 3 bowel movements overnight, NG tube clamped this morning and not nauseous.) Review of Systems: Deferred Objective Vital signs Vital Sign Date Time Temp Pulse Resp B/P (MAP) Pulse Ox O2 Delivery O2 Flow Rate FiO2 06/19/25 09:32 72 18 136/90 06/19/25 09:00 97.4 98 97.4 06/18/25 20:00 Room Air* 0 21 Total Intake and Output 06/18/25 06/18/25 06/19/25 15:00 23:00 07:00 Intake Total 600 ml 100 ml 0 ml Balance 600 ml 100 ml 0 ml Medications Current Medications Medications Dose Ordered Sig/Pedro Route Start Time Stop Time Status Last Admin Dose Admin Tamsulosin HCl 0.4 mg QPM PO 06/17/25 18:00 06/17/25 18:38 0.4 MG Sodium Chloride 1,000 ml @ 100 mls/hr Q10H IV 06/17/25 15:45 06/19/25 07:45 100 MLS/HR Ondansetron HCl 4 mg Q4HP PRN IV 06/17/25 15:45 06/19/25 06:30 4 MG Docusate Sodium 100 mg BIDPRN PRN PO 06/17/25 15:45 Enoxaparin Sodium 40 mg DAILY SC 06/18/25 10:00 06/19/25 09:31 40 MG Nitroglycerin 0.4 mg Q5MINP PRN SL 06/17/25 15:45 Hydromorphone HCl 0.5 mg Q2HPRN PRN IV 06/17/25 15:45 06/19/25 09:32 0.5 MG Hydromorphone HCl 0.25 mg Q4HPRN PRN IV 06/17/25 15:45 06/18/25 04:21 0.25 MG Pantoprazole Sodium 40 mg DAILY IV 06/18/25 10:00 06/19/25 09:31 40 MG Laboratory Laboratory Tests 06/18/25 04:15 06/18/25 02:52 Test 06/18/25 02:52 Range/Units Serum Glucose 121 H 74-106 mg/dL Examination: GENERAL:Normal (AA0 x 3), HEENT:Normal (NG tube in place and clamped), LUNGS:Normal (Nonlabored breathing with symmetric expansion), ABDOMEN:Normal (Nondistended, soft, depressible prior scars healed, nontender) Problem List/Assessment/Plan Assessment and Plan Mrs. Schmitz is a 50-year-old female who presented with over a week of nausea vomiting and diarrhea. I was consulted for the possibility of small- bowel obstruction. CT scan was reviewed and there are no small bowel dilations or transition points or anything to indicate a small-bowel obstruction. Given her presenting symptoms this is likely due to enteritis. Interval: Patient feeling well, had 3 bowel movements, and the feeling nauseous or vomiting anymore. Okay to clamp NG tube, start clear liquid diet and if tolerated advance diet and remove the NG tube. Recommend: 1. Clamp NG tube 2. Start clear liquid diet and advance as tolerated. You can give the clear liquids with the NG tube in place and clamped, if she tolerates, then advance diet. If the diet gets advanced past clear liquids the NG tube should be removed. 3. I will sign off, please call with any questions or concerns My Orders My Orders Orders - CADY HINKLE MD Procedure Category Date Status Time Clear Liq Diet DIET 06/19/25 Transmitted Lunch Plan discussed with Plan discussed with: Patient Visit Coding Surgery Date of Service if different f: Jun 19, 2025 Billing Provider: CADY HINKLE MD Surgery Visit Codes: [id number] INP/OBS CARE(HIGH) CADY HINKLE MD Jun 19, 2025 11:08
--- NOTE | 2025-06-19 17:00 | DVHPN2 ---
Subjective Overnight events noted. Patient's has a partial small-bowel obstruction currently NG tube has been clamped and patient will be started on clear liquid diet. Changes from previous H/P or p: No Changes Eyes: No Pain, No Vision change, No Conjunctivae inflammation, No Eyelid inflammation, No Other, No Redness ENT: No Ear pain, No Ear discharge, No Nose pain, No Nose discharge, No Nose congestion, No Mouth pain, No Mouth swelling, No Throat pain, No Throat swelling, No Other Cardiovascular: No Chest Pain, No Palpitations, No Orthopnea, No Paroxysmal Noc. Dyspnea, No Edema, No Lt Headedness, No Other Respiratory: No Cough, No Dry, No Shortness of breath, No SOB with excertion, No Wheezing, No Hemoptysis, No Pleuritic Pain, No Sputum, No Other Gastrointestinal: Nausea, Vomiting, Abdominal Pain; No Diarrhea, No Constipation, No Melena, No Hematochezia, No Other Genitourinary: No Dysuria, No Frequency, No Incontinence, No Hematuria, No Retention, No Other Musculoskeletal: No other, No neck pain, No shoulder pain, No arm pain, No back pain, No hand pain, No leg pain, No foot pain Skin: No Rash, No Lesions, No Jaundice, No Bruising, No Other Objective Vitals Vital Signs Date Time Temp Pulse Resp B/P (MAP) Pulse Ox O2 Delivery O2 Flow Rate FiO2 06/19/25 15:38 75 16 151/84 06/19/25 13:00 97.4 97 97.4 06/19/25 08:00 Room Air* 0 21 Intake/Output Intake and Output 06/19/25 07:00 Intake Total 700 ml Balance 700 ml Intake Oral 0 ml IV Total 700 ml # Voids 9 # Bowel Movements 3 Exam HEENT pupils are reactive Neck is supple CV is S1-S2 regular rate and rhythm Respiratory diminished breath sounds bases GI sluggish bowel sounds Extremity no pedal edema [employer] no motor deficit Medications Current Medications Medications Dose Ordered Sig/Pedro Route Start Time Stop Time Status Last Admin Dose Admin Tamsulosin HCl 0.4 mg QPM PO 06/17/25 18:00 06/17/25 18:38 0.4 MG Sodium Chloride 1,000 ml @ 100 mls/hr Q10H IV 06/17/25 15:45 06/19/25 07:45 100 MLS/HR Ondansetron HCl 4 mg Q4HP PRN IV 06/17/25 15:45 06/19/25 06:30 4 MG Docusate Sodium 100 mg BIDPRN PRN PO 06/17/25 15:45 Enoxaparin Sodium 40 mg DAILY SC 06/18/25 10:00 06/19/25 09:31 40 MG Nitroglycerin 0.4 mg Q5MINP PRN SL 06/17/25 15:45 Hydromorphone HCl 0.5 mg Q2HPRN PRN IV 06/17/25 15:45 06/19/25 15:38 0.5 MG Hydromorphone HCl 0.25 mg Q4HPRN PRN IV 06/17/25 15:45 06/18/25 04:21 0.25 MG Pantoprazole Sodium 40 mg DAILY IV 06/18/25 10:00 06/19/25 09:31 40 MG Laboratory Results Laboratory Tests 06/18/25 02:52 06/18/25 04:15 Urinalysis Test 06/17/25 12:11 Urine Color Light-yellow (Yellow) Urine Clarity Clear (Clear) Urine pH 5.5 (5.0-9.0) Urine Specific [place] 1.014 (1.001-1.035) Urine Protein Negative (Negative) Urine Ketones 1+ (Negative) H Urine Blood Trace /uL (Negative) H Urine Nitrite Negative (Negative) Urine Bilirubin Negative (Negative) Urine Urobilinogen Normal mg/dL (Negative) Urine Leukocyte Esterase Negative /uL (Negative) Urine RBC <1 /hpf (0 - 4) Urine Microscopic WBC 2 /HPF (0-5) Urine Squamous Epithelial Cells Few /hpf (<5) Urine Bacteria None seen /hpf (None Seen) Urine Mucus Few (None Seen) Urine Glucose Normal mg/dL (Normal) Assessment/Plan Assessment/Plan 50-year-old female with a known history of hypertension, recurrent UTI, urinary retention, papilledema, irritable bowel syndrome, peripheral neuropathy, gastritis, status post spinal fusion surgery in the past who initially presented to the hospitalist with the abdominal pain nausea and vomiting found to have 1. Intractable abdominal pain 2. Partial small-bowel obstruction 3. Recurrent UTI 4. IBS 5. Gastritis/enteritis 6. Rectal prolapse 7. Hypertension Clamp NG tube, start clear liquid diet follow up General surgery recommendations patient is currently scheduled for rectal prolapse surgery at [facility] [place] next week. Plan discussed with: Patient My Orders Orders - JACQUELINE PERDOMO MD Procedure Category Date Status Time Chest Xray 1 View XY 06/19/25 Resulted 07:56 Date of Service: Jun 19, 2025 Billing Provider: JACQUELINE PERDOMO MD Common Visit Codes: [id number] INP/OBS CARE(HIGH) JACQUELINE PERDOMO MD Jun 19, 2025 17:00
[2025-06-19] MEDS: SIMETHICONE 80 MG CHEWABLE TABLET PO PRN (18:22)
[2025-06-20] VITALS (8 sets, daily range): BP systolic 127–175; BP diastolic 88–97; PULSE 70–93; RESP 6–18; TEMP 97.8–98.2; O2SAT 97–99
--- NOTE | 2025-06-20 06:38 | ECG ---
[facility] Test Date: 2025-06-17 Test Time: 11:01:24 Pat Name: ARBEN SPARKS Department: Room: 0214 B Gender: F [employer] Operator: RAVI : 1975 Requested By: ADAMARIS SHAH Order Number: [id number] Reading MD: Rocky Meneses Measurements Intervals [place] Rate: 78 P: 24 IN: 156 QRS: -3 QRSD: 104 T: 18 QT: 392 QTc: 447 Interpretive Statements Sinus rhythm RSR' in V1 or V2, right VCD or RVH Electronically Signed On 06-23-2025 18:57:10 PST by Rocky Meneses Please click the below link to view image of tracing.
--- NOTE | 2025-06-20 08:56 | DVHPN2 ---
Subjective c/o abd pain and constipation today c/o dehydration Changes from previous H/P or p: Changes Eyes: No Pain, No Vision change, No Conjunctivae inflammation, No Eyelid inflammation, No Other, No Redness ENT: No Ear pain, No Ear discharge, No Nose pain, No Nose discharge, No Nose congestion, No Mouth pain, No Mouth swelling, No Throat pain, No Throat swelling, No Other Cardiovascular: No Chest Pain, No Palpitations, No Orthopnea, No Paroxysmal Noc. Dyspnea, No Edema, No Lt Headedness, No Other Respiratory: No Cough, No Dry, No Shortness of breath, No SOB with excertion, No Wheezing, No Hemoptysis, No Pleuritic Pain, No Sputum, No Other Gastrointestinal: Nausea, Vomiting, Abdominal Pain; No Diarrhea, No Constipation, No Melena, No Hematochezia, No Other Genitourinary: No Dysuria, No Frequency, No Incontinence, No Hematuria, No Retention, No Other Musculoskeletal: No other, No neck pain, No shoulder pain, No arm pain, No back pain, No hand pain, No leg pain, No foot pain Skin: No Rash, No Lesions, No Jaundice, No Bruising, No Other Objective Vitals Vital Signs Date Time Temp Pulse Resp B/P (MAP) Pulse Ox O2 Delivery O2 Flow Rate FiO2 06/20/25 06:27 73 17 154/103 06/20/25 05:00 97.8 98 97.8 06/19/25 20:00 Room Air* 0 21 Intake/Output Intake and Output 06/20/25 07:00 Intake Total 1600 ml Balance 1600 ml Intake Oral 1600 ml # Voids 8 General Appearance: Alert, Oriented X3, Cooperative Lungs: Clear to auscultation, Normal air movement Cardiovascular: Regular rate, Normal S1, Normal S2 Abdomen: Normal bowel sounds, Soft, No tenderness Extremities: No edema Medications Current Medications Medications Dose Ordered Sig/Pedro Route Start Time Stop Time Status Last Admin Dose Admin Tamsulosin HCl 0.4 mg QPM PO 06/17/25 18:00 06/19/25 18:21 0.4 MG Sodium Chloride 1,000 ml @ 100 mls/hr Q10H IV 06/17/25 15:45 06/19/25 17:45 100 MLS/HR Ondansetron HCl 4 mg Q4HP PRN IV 06/17/25 15:45 06/20/25 05:57 4 MG Docusate Sodium 100 mg BIDPRN PRN PO 06/17/25 15:45 Enoxaparin Sodium 40 mg DAILY SC 06/18/25 10:00 06/19/25 09:31 40 MG Nitroglycerin 0.4 mg Q5MINP PRN SL 06/17/25 15:45 Hydromorphone HCl 0.5 mg Q2HPRN PRN IV 06/17/25 15:45 06/20/25 05:57 0.5 MG Hydromorphone HCl 0.25 mg Q4HPRN PRN IV 06/17/25 15:45 06/18/25 04:21 0.25 MG Pantoprazole Sodium 40 mg DAILY IV 06/18/25 10:00 06/19/25 09:31 40 MG Dimethicone 40 mg QIDP PRN PO 06/19/25 17:15 06/19/25 18:22 40 MG Laboratory Results Laboratory Tests 06/18/25 02:52 06/18/25 04:15 Urinalysis Test 06/17/25 12:11 Urine Color Light-yellow (Yellow) Urine Clarity Clear (Clear) Urine pH 5.5 (5.0-9.0) Urine Specific [place] 1.014 (1.001-1.035) Urine Protein Negative (Negative) Urine Ketones 1+ (Negative) H Urine Blood Trace /uL (Negative) H Urine Nitrite Negative (Negative) Urine Bilirubin Negative (Negative) Urine Urobilinogen Normal mg/dL (Negative) Urine Leukocyte Esterase Negative /uL (Negative) Urine RBC <1 /hpf (0 - 4) Urine Microscopic WBC 2 /HPF (0-5) Urine Squamous Epithelial Cells Few /hpf (<5) Urine Bacteria None seen /hpf (None Seen) Urine Mucus Few (None Seen) Urine Glucose Normal mg/dL (Normal) Assessment/Plan Assessment/Plan 1. Intractable abdominal pain 2. Partial small-bowel obstruction, resolved 3. Recurrent UTI 4. IBS 5. Gastritis/enteritis 6. Rectal prolapse 7. Hypertension PLAN: Abd pain: Change pain medication to [place] Dilaudid Dehydration: IV fluids NS Anxiety: Xanax prn Advance diet to soft May shower Plan discussed with: Patient My Orders Orders - STEVAN VERAS MD Procedure Category Date Status Time Comprehensive LAB 06/20/25 Logged Metabolic Panel 08:34 Magnesium LAB 06/20/25 Logged 08:34 Hydrocodone-Acet PHA 06/20/25 Transmitted 5/325mg Tab ([place] 09:00 Soft Diet DIET 06/20/25 Transmitted Breakfast Date of Service: Jun 20, 2025 Billing Provider: STEVAN VERAS MD Common Visit Codes: NOT BILLABLE STEVAN VERAS MD Jun 20, 2025 08:56
[2025-06-20] MEDS ORDERED: ALPRAZolam 0.5 MG TAB PO PRN (09:00)
[2025-06-20] MEDS: LOSARTAN POTASSIUM 25 MG TAB PO ONE (10:15)
[2025-06-20 10:39] LABS: Alanine Aminotransferase 19 U/L (7-40); Albumin 4.2 g/dL (3.2-4.8); Alkaline Phosphatase 97 U/L (46-116); Anion Gap 12 (5-15); BUN/Creatinine Ratio 11.5 (10.0-20.0); Calcium 9.1 mg/dL (8.7-10.4); Carbon Dioxide 23 mmol/L (20-31); Chloride 104 mmol/L (98-107); Glucose 104 mg/dL (74-106); Sodium 139 mmol/L (136-145); Total Protein 6.8 g/dL (5.7-8.2)
[2025-06-20 10:40] LABS: Bilirubin, Total 0.9 mg/dL (0.2-1.0)
[2025-06-20 10:44] LABS: Blood Urea Nitrogen 7 mg/dL (9-23); Magnesium 1.6 mg/dL (1.6-2.6); Potassium 3.3 mmol/L (3.5-5.1)
[2025-06-20] MEDS ORDERED: LORazepam 0.5 MG TAB PO PRN (10:45)
[2025-06-20] MEDS: HYDROcodone-ACET 5/325MG TAB PO PRN (16:32)
[2025-06-20] MEDS: SODIUM CHLORIDE 0.9% 1,000 ML IV SCH (16:33)
[2025-06-21 01:00] VITALS: BP 126/71; PULSE 79; RESP 16; TEMP 98.1; O2SAT 95
[2025-06-21 05:00] VITALS: BP 122/87; PULSE 84; RESP 18; TEMP 98.2; O2SAT 96
[2025-06-21] MEDS: DOCUSATE SOD 100 MG CAP PO PRN (05:39)
[2025-06-21 06:27] LABS: Hematocrit 37.5 % (36.0-46.0); Hemoglobin 12.9 g/dL (12.2-16.2); Mean Corpuscular Hemoglobin 30.6 pg (28.0-32.0); Mean Corpuscular Volume 88.9 fL (80.0-100.0); Nucleated Red Blood Cells % 0.1 %
[2025-06-21 06:43] LABS: Alanine Aminotransferase 18 U/L (7-40); Albumin 3.8 g/dL (3.2-4.8); Alkaline Phosphatase 84 U/L (46-116); Anion Gap 10 (5-15); BUN/Creatinine Ratio 11.9 (10.0-20.0); Bilirubin, Total 0.4 mg/dL (0.2-1.0); Calcium 8.8 mg/dL (8.7-10.4); Carbon Dioxide 25 mmol/L (20-31); Glucose 97 mg/dL (74-106); Magnesium 1.8 mg/dL (1.6-2.6); Sodium 142 mmol/L (136-145); Total Protein 6.2 g/dL (5.7-8.2)
[2025-06-21 06:49] LABS: Blood Urea Nitrogen 7 mg/dL (9-23); Chloride 107 mmol/L (98-107); Potassium 3.3 mmol/L (3.5-5.1)
[2025-06-21] MEDS: hydrALAZINE HCL 20 MG/ML VL IV PRN (08:52)
[2025-06-21] MEDS: LOSARTAN POTASSIUM 25 MG TAB PO SCH (08:53)
[2025-06-21 09:00] VITALS: BP 147/107; PULSE 78; RESP 14; TEMP 97.6; O2SAT 98
--- NOTE | 2025-06-21 09:52 | DVHDS2 ---
Discharge Summary Date of Admission Jun 17, 2025 at 15:44 Date of Discharge: Jun 21, 2025 Labs/Diagnostic Data: Laboratory Results Test 06/21/25 02:52 06/17/25 12:11 06/17/25 11:20 White Blood Count 4.6 10^3/uL (4.4-10.8) Red Blood Count 4.22 10^6/uL (4.0-5.20) Hemoglobin 12.9 g/dL (12.2-16.2) Hematocrit 37.5 % (36.0-46.0) Mean Corpuscular Volume 88.9 fL (80.0-100.0) Mean Corpuscular Hemoglobin 30.6 pg (28.0-32.0) Mean Corpuscular Hemoglobin Concent 34.4 g/dL (32.0-36.0) Red Cell Distribution Width 14.0 % (11.8-14.3) Platelet Count 271 10^3/uL (140-450) Mean Platelet Volume 8.1 fL (6.9-10.8) Neutrophils (%) (Auto) 61.7 % (37.0-80.0) Lymphocytes (%) (Auto) 26.4 % (10.0-50.0) Monocytes (%) (Auto) 9.5 % (0.0-12.0) Eosinophils (%) (Auto) 1.7 % (0.0-7.0) Basophils (%) (Auto) 0.7 % (0.0-2.0) Neutrophils # (Auto) 2.8 10 ^3/uL (1.6-8.6) Lymphocytes # (Auto) 1.2 10 ^3/uL (0.4-5.4) Monocytes # (Auto) 0.4 10 ^3/uL (0-1.3) Eosinophils # (Auto) 0.1 10 ^3/uL (0-0.8) Basophils # (Auto) 0 10 ^3/uL (0-0.2) Nucleated Red Blood Cells 0.1 % Sodium Level 142 mmol/L (136-145) Potassium Level 3.3 mmol/L (3.5-5.1) Chloride Level 107 mmol/L (98-107) Carbon Dioxide Level 25 mmol/L (20-31) Anion Gap 10 (5-15) Blood Urea Nitrogen 7 mg/dL (9-23) Creatinine 0.59 mg/dL (0.550-1.02) Glomerular Filtration Rate Calc 109 mL/min (>90) BUN/Creatinine Ratio 11.9 (10.0-20.0) Serum Glucose 97 mg/dL (74-106) Calcium Level 8.8 mg/dL (8.7-10.4) Magnesium Level 1.8 mg/dL (1.6-2.6) Total Bilirubin 0.4 mg/dL (0.2-1.0) Aspartate Amino Transferase (AST) 15 U/L (13-40) Alanine Aminotransferase (ALT) 18 U/L (7-40) Alkaline Phosphatase 84 U/L (46-116) Total Protein 6.2 g/dL (5.7-8.2) Albumin 3.8 g/dL (3.2-4.8) Urine Color Light-yellow (Yellow) Urine Clarity Clear (Clear) Urine pH 5.5 (5.0-9.0) Urine Specific [place] 1.014 (1.001-1.035) Urine Protein Negative (Negative) Urine Ketones 1+ (Negative) Urine Blood Trace /uL (Negative) Urine Nitrite Negative (Negative) Urine Bilirubin Negative (Negative) Urine Urobilinogen Normal mg/dL (Negative) Urine Leukocyte Esterase Negative /uL (Negative) Urine RBC <1 /hpf (0 - 4) Urine Microscopic WBC 2 /HPF (0-5) Urine Squamous Epithelial Cells Few /hpf (<5) Urine Bacteria None seen /hpf (None Seen) Urine Mucus Few (None Seen) Urine Glucose Normal mg/dL (Normal) Lipase 36 U/L (12-53) Other Laboratory Tests 06/21/25 02:52 Brief Hx & Hospital Course: Final diagnoses 1. Intractable abdominal pain 2. Partial small-bowel obstruction, resolved 3. Recurrent UTI 4. IBS 5. Gastritis/enteritis 6. Rectal prolapse 7. Hypertension 8. Hypokalemia 50-year-old female who was admitted for abdominal pain and was suspected of partial bowel obstruction however her imaging were not conclusive for that, her bowel obstruction resolved spontaneously She was started on a diet and she is tolerating the diet overnight She we will advance her diet today Her potassium is slightly low and therefore we will replace it before discharge The patient is stable for discharge She is asymptomatic now Follow up as an outpatient with the primary care physician as soon as possible Blood pressure is slightly elevated this morning Continue the home medications including her hypertension medications She is scheduled for rectal prolapse surgery as an outpatient who is she is going to follow up with Condition at Discharge: Stable Final Diagnosis/Problems List . Intractable abdominal pain 2. Partial small-bowel obstruction, resolved 3. Recurrent UTI 4. IBS 5. Gastritis/enteritis 6. Rectal prolapse 7. Hypertension Discharge Disposition: Home SNF Discharge Will this Physician continue t: No Discharge Instruct/Medications Scheduled Acetazolamide (Diamox), 500 MG PO Q12HR Alprazolam (Alprazolam), 1 TAB PO TID, (Reported) Cholestyramine (Questran Powder), 4 GM PO BID Dicyclomine Hcl (Bentyl Capsule), 1 CAP PO TID Docusate Sodium (Colace), 1 CAP PO BID Docusate Sodium (Docusate Sodium), 1 CAP PO BID, (Reported) Duloxetine HCl (Duloxetine HCl), 1 CAP PO DAILY, (Reported) Duloxetine Hcl (Cymbalta), 1 CAP PO DAILY, (Reported) Furosemide (Furosemide), 1 TAB PO DAILY, (Reported) Gabapentin (Gabapentin), 1 TAB PO TID, (Reported) Hydrocodone-Acetaminophen (Hydrocodone Bitartrate/AC 10-325 mg), 1 TAB PO QID, (Reported) Nitrofurantoin (Nitrofurantoin), 1 CAP PO BID Pantoprazole Sodium Sesquihydr (Protonix), 40 MG PO DAILY Promethazine Hcl (Promethazine Hcl), 6.25 MG PO Q6HPRN, (Reported) Sennosides-Docusate Sodium (Senokot S), 1 TAB PO BID, (Reported) Simethicone (Simethicone), 80 MG PO TID, (Reported) Spironolactone (Spironolactone), 1 TAB PO DAILY, (Reported) Tamsulosin Hcl (Tamsulosin Hcl), 1 CAP PO DAILY, (Reported) Valsartan (Valsartan), 1 TAB PO DAILY, (Reported) Vancomycin HCl (Vancomycin HCl), 125 MG PO Q6HR Scheduled PRN Baclofen (Baclofen), 10 MG PO BIDP PRN Famotidine (Famotidine), 1 TAB PO QHSP PRN, (Reported) Furosemide (Lasix), 1 TAB PO DAILY PRN Tramadol HCl (Tramadol HCl), 50 MG PO TIDP PRN Zolpidem Tartrate (Ambien), 1 TAB PO QPM PRN Miscellaneous Medications Albuterol Sulfate (Ventolin Mdi), 90 MCG IN, (Reported) Lactulose (Lactulose), ML PO, (Reported) Tizanidine Hydrochloride (Tizanidine Hcl), TAB PO, (Reported) Discontinued Medications Losartan Potassium (Losartan Potassium), 100 MG PO DAILY, (Reported) Discharge Statement: "Patient was advised to return to the ER or call 911 if any headaches, dizziness, shortness of breath, chest pain, abdominal pain, bleeding, fevers, or worsening of medical condition. Patient was counseled about treatment plan, medications, possible side effects, patientverbalized understanding. All questions were answered to the best of my ability. This discharge took greater then 30 minutes in planning, reviewing documentation, counseling the patient, and discussing with other team members." ASSESSMENT ASSESSMENT Assessment Date of Service: Jun 21, 2025 Billing Provider: STEVAN VERAS MD Common Visit Codes: NOT BILLABLE STEVAN VERAS MD Jun 21, 2025 09:52
[2025-06-21] MEDS ORDERED: POLY335015 PO (10:06)
[2025-06-21] MEDS: POLYETHYLENE GLYCOL 17 GM PWDR PO ONE (10:26)
[2025-06-21] MEDS: POTASSIUM CHL 20 Meq TABLET PO ONE (10:26)
[2025-06-21 10:36] VITALS: BP 134/84; PULSE 78
== END 2025-06-21 12:11 | disposition home or self-care (01) | DRG 389 ==
LOC: ER 10:53 → OVERFLOW 15:44 → CENTRAL 06-18 15:57
PROVIDERS: ADMIT Internal Medicine Geriatric Medicine; ATTEND Internal Medicine Geriatric Medicine
PROC: 0D9670Z Drainage of Stomach with Drainage Device, Via Natural or Artificial Opening (ICD-10-PCS; principal; 2025-06-18)
DX: K56.600 Partial intestinal obstruction, unspecified as to cause (principal); N39.0 Urinary tract infection, site not specified; K62.3 Rectal prolapse; E03.9 Hypothyroidism, unspecified; I10 Essential (primary) hypertension; K76.9 Liver disease, unspecified; G47.00 Insomnia, unspecified; K29.70 Gastritis, unspecified, without bleeding; N81.9 Female genital prolapse, unspecified; E86.0 Dehydration; E87.6 Hypokalemia; F17.210 Nicotine dependence, cigarettes, uncomplicated; R33.9 Retention of urine, unspecified; K58.9 Irritable bowel syndrome, unspecified; G89.4 Chronic pain syndrome; Z90.49 Acquired absence of other specified parts of digestive tract; Z98.1 Arthrodesis status; Z90.710 Acquired absence of both cervix and uterus; Z98.51 Tubal ligation status; Z87.440 Personal history of urinary (tract) infections
CPT/HCPCS: 36415; 71045; 74177; 80053; 81001; 83690; 83735; 85025; 93005; 96374; 96375; 99291; G0378; J2405; J2470